=== PATIENT | female | born 1960 | race Caucasian/White ===

== ENCOUNTER 2016-07-19 01:23 | Observation (INO) | payer BC, MEDICARE ==
[~2016-07-19] VITALS: Ht 167.6 cm; Wt 142.9 kg
[~2016-07-19 01:23] MED LIST: ALPR1TAB6 PO; ASPI81TA2 PO; CETI10TA22 PO; DICL50TA2 PO; DICY20TA3 PO; FLUN25SP NS; FLUO20TA11 PO; FLUO40CA9 PO; FLUT50DI IH; HYDR-2762 PO; HYDR-971 PO; KETO30SY2 IJ; KETO60VI IM; LEVO125T5 PO; LISI-338 PO; LORTAB; LOSA50TA6 PO; METH-37 PO; NIAC500T PO; OMEG500C PO; ONDA4TAB7 PO; RIZA10TA PO; TRAM50TA PO; VERA240T PO; WARF5TAB7 PO; ZOLP10TA4 PO
--- NOTE | 2016-07-19 01:52 | ACF ---
Admission Forms Criteria CHEST PAIN Clinical Indications for Admission to Inpatient Care (Place 'X' for any and all applicable criteria): Admission is indicated for chest pain and ANY ONE of the following(1)(2)(3)(4)(5 ): [ ]I. Angina with acute coronary syndrome (Also use Myocardial Infarction or Angina guideline) [ ]II. Hemodynamic instability [ ]III. Angina needing acute intervention as indicated by ALL of the following( 11)(12): [ ]a) Unstable angina is present as indicated by angina that is ANY ONE of the following: [ ]i) New onset [X]ii) Nocturnal [ ]iii) Prolonged at rest [ ]iv) Progressive [X]b) Angina warrants acute intervention as indicated by ANY ONE of the following: [ ]i) Recurrent angina (e.g, not responding as previously to treatment) [ ]ii) Angina at rest or with low-level activities despite initial medical therapy [ ]iii) New or presumably new ST-segment depression on ECG [ ]iv) Signs or symptoms of heart failure (eg, dyspnea, pulmonary edema) [ ]v) New or worsening mitral regurgitation [ ]vi) Hemodynamic instability [ ]vii) Dangerous arrhythmia (eg, sustained ventricular tachycardia) [ ]viii) History of percutaneous coronary intervention within 6 months [ ]ix) History of coronary artery bypass graft surgery [ ]x) ABHISHEK risk score of 2 or greater[A] [ ]xi) History of Diabetes(14) [ ]xii) High-risk cardiac ischemia findings on noninvasive testing (e.g, echocardiogram, treadmill testing, nuclear scan) [ ]xiii) Chronic renal insufficiency (ie, estimated GFR less than 60 mL/min/1.732m) [ ]xiv) Left ventricular ejection fraction less than 40% [ ]IV. Evidence of DC (eg, cardiac biomarkers positive, ST-segment elevation on ECG) also use Myocardial Infarction Criteria Form. [ ]V. Pulmonary edema [ ]. Respiratory distress [ ]VII. Chest pain indicative of serious diagnosis other than coronary artery disease (eg, aortic dissection) [ ]VIII. Contraindications and/or Inappropriate clinical situations for Observational Care in patients with Chest Pain, when ANY ONE of the following is required: [ ]a) Patient with risk factor for pulmonary embolism, acute coronary syndrome and myocardial infarction (18) [ ]b) Patient with Pulmonary embolism require an average LOS of 4.3 days, therefore emergency department observation management is inappropriate 18,23 [ ]c) Painful condition/s in the elderly, have the highest rate of recidivism after emergency department observation management (10.8%) 20,21,22 [ ]d) Elevated cardiac biomarker requires intensive and exhaustive care (19) [ ]IX. General contraindications and/or Inappropriate clinical situations for Observational Care in patients with Chest Pain, when ANY ONE of the following is required: [ ]a) Prediction of prolongation of LOS based on ANY ONE of the following may be considered as a contraindication for observational care 2, 3, 4, 5, 6, 7, 8, 9, 10, 11 [ ]i) Age > 65 yrs. [ ]ii) Patient arriving by ambulance [ ]iii) Patient with high acuity [ ]iv) Patient requiring vital sign monitoring [ ]v) Patient on IV medication [ ]b) Systolic blood pressures 180mmHg 3,12 [ ]c) Patient with altered mental status including delirium and other alteration of consciousness, (3) [ ]d) Patient whose discharge disposition will be to a longterm home or rehabilitation home should not be managed in Emergency Department Observation Unit. CMS rule requires 3 days hospital stay before such placement. 3,13 [ ]e) Patient with failure to thrive due to broad array of etiologies 3,16,17 [ ]f) Inability to ambulate 3,14 Extended stay beyond goal length of stay may be needed for (1)(28): [ ]a) Specific condition diagnosed after evaluation (eg, pulmonary embolism, aortic dissection) [ ]b) Unstable angina [ ]c) Continued suspicion of acute coronary syndrome with inability to complete needed cardiac evaluation (eg, patient clinically unable to undergo stress testing) [ ]d) Myocardial infarction (Contents from ANGINA and CHEST PAIN clinical indications for admission to inpatient care have been integrated in this form) The original [facility] content created by [employer] has been revised. The portions of the content which have been revised are identified through the use of italic text or in bold, and [facility] has neither reviewed nor approved the modified material. All other unmodified content is copyright [employer]. Please see references footnoted in the original [facility] edition 2016 Admission Criteria Met?: Pending MIKEY BUCK Jul 19, 2016 01:52
[2016-07-19 02:05] LABS: BASO # 0.1 x10^3/uL (0.0-0.2); BASO % 1 % (0-3); EOS % 2 % (0-3); HEMATOCRIT 40.4 % (36.0-47.0); HEMOGLOBIN 13.1 g/dL (12.0-15.5); LYMPH # 1.4 x10^3/uL (1.0-4.8); LYMPH % 15 % (24-48); MEAN CORPUSCULAR HEMOGLOBIN 28 pg (25-35); MEAN CORPUSCULAR HGB CONC 32 g/dL (31-37); MEAN CORPUSCULAR VOLUME 86 fL (79-100); MONO % 4 % (0-9); NEUT % 79 % (31-73); PLATELET COUNT 205 x10^3/uL (140-400); RED CELL DISTRIBUTION WIDTH 13.4 % (11.5-14.5)
[2016-07-19] MEDS ORDERED: MORPHINE SULFATE 4 MG/ML DISP.SYRIN. ONE (02:14)
[2016-07-19] MEDS ORDERED: ASPIRIN 81 MG TAB.CHEW PO ONE (02:15)
[2016-07-19] MEDS: NITROGLYCERIN SUBLINGUAL 0.4 MG BOTTLE OF 25. SL PRN ×2 (02:19→02:38)
[2016-07-19] MEDS: MORPHINE SULFATE 2 MG/ML DISP.SYRIN. IV PRN ×3 (02:20→06:08)
[2016-07-19 02:21] LABS: CALCIUM 9.4 mg/dL (8.5-10.1); GFR 57.1
[2016-07-19 02:27] LABS: ALBUMIN 3.4 g/dL (3.4-5.0); DIRECT BILIRUBIN 0.2 mg/dL (0.0-0.2); TOTAL BILIRUBIN 0.5 mg/dL (0.2-1.0); TOTAL PROTEIN 6.8 g/dL (6.4-8.2)
--- NOTE | 2016-07-19 05:00 | PHYS DOC ---
Past Medical History Past Medical History: Diverticulitis, Diverticulosis, High Cholesterol, Hypertension, Hypothyroid, Migraines Additional Past Medical Histor: FATTY LIVER DISEASE, CVA, ULCERS Past Surgical History: Appendectomy, Cholecystectomy, , Hysterectomy, Knee Replacement Alcohol Use: None Drug Use: None Adult General Chief Complaint Chief Complaint: CHEST PAIN HPI HPI 55-year-old female presenting to the emergency department today with chest pain. She describes it as sharp in the middle of her chest without radiation. Worse at night. No alleviating or exacerbating factors present. Straight hypertension and hyperlipidemia. She denies personal history or family history of blood clotting disorders. She denies unilateral leg swelling. Review of Systems Review of Systems Negative for abdominal pain fevers chills. Negative for cough. All other review of systems is negative unless otherwise noted in history of present illness. Current Medications Current Medications Current Medications Medications (Trade) Dose Ordered Sig/Aretha Start Time Stop Time Status Last Admin Dose Admin Aspirin (Children'S Aspirin) 324 mg 1X ONCE 07/19/16 02:15 07/19/16 02:24 DC 07/19/16 02:18 324 MG Morphine Sulfate 4 mg STK-MED ONCE 07/19/16 02:14 07/19/16 02:15 DC Nitroglycerin (Nitrostat) 0.4 mg PRN Q5MIN PRN 07/19/16 02:15 07/19/16 02:38 0.4 MG Allergies Allergies Allergies Coded Allergies Type Severity Reaction Last Updated Verified Fenofibrate Nanocrystallized Allergy Intermediate migraines 09/30/14 Yes celecoxib Allergy Intermediate 09/30/14 Yes colesevelam Allergy Intermediate 09/30/14 Yes dimenhydrinate Allergy Intermediate 09/30/14 Yes duloxetine Allergy Intermediate 09/30/14 Yes fenofibrate Allergy Intermediate 09/30/14 Yes fenofibrate,micronized Allergy Intermediate migraines 09/30/14 Yes metoclopramide Allergy Intermediate itching 09/30/14 Yes pantoprazole sodium Allergy Intermediate rash 09/30/14 Yes pregabalin Allergy Intermediate rash 09/30/14 Yes vilazodone hydrochloride Allergy Intermediate 09/30/14 Yes NSAIDS (Non-Steroidal Anti-Inflamma Adverse Reaction Intermediate ULCERS Yes Seeasiq-Kza-Lyd Reductase Inhibitor Adverse Reaction Intermediate INCREASED LIVER ENZYMES 09/30/14 Yes Physical Exam Physical Exam Constitutional: Well developed, well nourished, no acute distress, non-toxic appearance. HENT: Normocephalic, atraumatic, bilateral external ears normal, oropharynx moist, no oral exudates, nose normal. [] Eyes: PERRLA, EOMI, conjunctiva normal, no discharge. Neck: Normal range of motion, no tenderness, supple, no stridor. [] Cardiovascular:Heart rate regular rhythm, no murmur Lungs & Thorax: Bilateral breath sounds clear to auscultation [] Abdomen: Bowel sounds normal, soft, no tenderness, no masses, no pulsatile masses. Skin: Warm, dry, no erythema, no rash. Back: No tenderness, no CVA tenderness. [] Extremities: No tenderness, no cyanosis, no clubbing, ROM intact, no edema. [] Neurologic: Alert and oriented X 3, normal motor function, normal sensory function, no focal deficits noted. Psychologic: Affect normal, judgement normal, mood normal. [] Current Patient Data Vital Signs Vital Signs Date Time Temp Pulse Resp B/P Pulse Ox O2 Delivery O2 Flow Rate FiO2 07/19/16 02:38 95 172/79 07/19/16 02:33 95 Room Air 07/19/16 02:20 22 07/19/16 01:38 97.8 97.8 Lab Values Laboratory Tests Test 07/19/16 01:55 White Blood Count 10.0x10^3/uL (4.0-11.0) Red Blood Count 4.70x10^6/uL (3.50-5.40) Hemoglobin 13.1g/dL (12.0-15.5) Hematocrit 40.4% (36.0-47.0) Mean Corpuscular Volume 86fL (79-100) Mean Corpuscular Hemoglobin 28pg (25-35) Mean Corpuscular Hemoglobin Concent 32g/dL (31-37) Red Cell Distribution Width 13.4% (11.5-14.5) Platelet Count 205x10^3/uL (140-400) Neutrophils (%) (Auto) 79% (31-73) H Lymphocytes (%) (Auto) 15% (24-48) L Monocytes (%) (Auto) 4% (0-9) Eosinophils (%) (Auto) 2% (0-3) Basophils (%) (Auto) 1% (0-3) Neutrophils # (Auto) 7.9x10^3uL (1.8-7.7) H Lymphocytes # (Auto) 1.4x10^3/uL (1.0-4.8) Monocytes # (Auto) 0.4x10^3/uL (0.0-1.1) Eosinophils # (Auto) 0.2x10^3/uL (0.0-0.7) Basophils # (Auto) 0.1x10^3/uL (0.0-0.2) Sodium Level 138mmol/L (136-145) Potassium Level 4.0mmol/L (3.5-5.1) Chloride Level 102mmol/L (98-107) Carbon Dioxide Level 27mmol/L (21-32) Anion Gap 9 (6-14) Blood Urea Nitrogen 9mg/dL (7-20) Creatinine 1.0mg/dL (0.6-1.0) Estimated GFR (Cockcroft-Gault) 57.1 Glucose Level 117mg/dL (70-99) H Calcium Level 9.4mg/dL (8.5-10.1) Total Bilirubin 0.5mg/dL (0.2-1.0) Direct Bilirubin 0.2mg/dL (0.0-0.2) Aspartate Amino Transferase (AST) 30U/L (15-37) Alanine Aminotransferase (ALT) 49U/L (14-59) Alkaline Phosphatase 136U/L (46-116) H Troponin I Quantitative < 0.017ng/mL (0.000-0.055) DK-Jcc-Q-Type Natriuretic Peptide 10pg/mL (0-124) Total Protein 6.8g/dL (6.4-8.2) Albumin 3.4g/dL (3.4-5.0) Lipase 61U/L (73-393) L Laboratory Tests 07/19/16 01:55 Laboratory Tests 07/19/16 01:55 EKG EKG [] EKG shows sinus rhythm with a regular rate. [place] normal. Intervals normal. ST segments congruent Radiology/Procedures Radiology/Procedures Chest x-ray shows mild cardiomegaly. No infiltrate or pneumothorax present. [] Course & Med Decision Making Course & Med Decision Making Pertinent Labs and Imaging studies reviewed. (See chart for details) [] She 5-year-old female presenting to the emergency department today with chest pain. Mild hypertension on initial vital signs. Patient was given aspirin and nitroglycerin which improved her pain mildly. EKG unremarkable. Labs showed normal CBC. Chemistry panel unremarkable negative troponin. On reevaluation her pain had improved mildly. She was then admitted to our hospital for serial blood work monitoring and cardiology consultation. Dragon Disclaimer Dragon Disclaimer This electronic medical record was generated, in whole or in part, using a voice recognition dictation system. Departure Departure Impression: Primary Impression: Chest pain Disposition: ADMITTED INPATIENT Condition: STABLE Referrals: RUTH PEREZ (PCP) ARMANDO DAVIS MD Jul 19, 2016 05:00
[2016-07-19] MEDS ORDERED: MELA5TAB4 PO (05:03)
[2016-07-19] MEDS ORDERED: [UNRECOGNIZED DRUG - CODE] SQ (05:03)
[2016-07-19] MEDS ORDERED: KETO30SY2 IV (05:03)
[2016-07-19] MEDS ORDERED: KRIL1CAP5 PO (05:03)
[2016-07-19] MEDS ORDERED: CYCL10TA2 PO (05:03)
[2016-07-19] MEDS ORDERED: TRAM50TA PO (05:03)
[2016-07-19] MEDS ORDERED: TRAZ50TA15 PO (05:03)
[2016-07-19 07:15] VITALS: BP 129/69
--- NOTE | 2016-07-19 08:41 | RAD ---
Portable AP upright view CXR: 0 146 Clinical indications: Chest pain. Comparison: March 25, 2015. Findings: No acute lung infiltrate or pleural effusion or pulmonary edema or lung mass or pneumothorax is seen. The heart size, pulmonary vasculature, mediastinum and both mark are unremarkable. Impression: No acute radiographic abnormality is seen.
[2016-07-19] MEDS ORDERED: ALPRAZOLAM 1 MG TABLET PO PRN (10:15)
[2016-07-19] MEDS ORDERED: traZODone 50 MG TABLET. PO PRN (10:15)
[2016-07-19] MEDS: VERAPAMIL SR 120 MG TABLET.ER. PO SCH (11:00)
[2016-07-19] MEDS ORDERED: ENOXAPARIN 40 MG/0.4 ML DISP.SYRIN. SQ SCH (11:00)
[2016-07-19] MEDS ORDERED: FLUTICASONE 50MCG/NASAL SPRAY 16GM BOTTLE. NS SCH (11:00)
[2016-07-19 11:19] LABS: CKMB MASS 0.3 ng/mL (0.0-3.6); CREATINE KINASE 40 U/L (26-192)
[2016-07-19 11:24] VITALS: BP 140/72
--- NOTE | 2016-07-19 11:26 | EKG ---
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
--- NOTE | 2016-07-19 11:41 | EKG ---
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
[2016-07-19] MEDS: FLUOXETINE HCL 20 MG CAPSULE PO SCH (12:07)
[2016-07-19] MEDS: CETIRIZINE HCL 10 MG TABLET PO SCH (12:07)
[2016-07-19] MEDS: ASPIRIN 81 MG TAB.CHEW PO SCH (12:07)
[2016-07-19] MEDS: TRAMADOL 50 MG TABLET. PO SCH (12:09)
[2016-07-19] MEDS: HYDROCODONE/APAP 5/325MG TABLET. PO PRN ×2 (12:09→18:14)
--- NOTE | 2016-07-19 12:42 | PDOC1 ---
History and Physical Date of Admission Date of Admission 07/19/16 Identification/Chief Complaint Chief Complaint chest pain Problems: Source Source: Chart review, Patient History of Present Illness History of Present Illness HPI HPI 55-year-old female presenting to the emergency department today with chest pain for 1 d. Pt started to feel substernal pain last night when walking at home, sharp, no radiation, no N/V , diaphoresis. She dose have exertional sob for a few days. She has mild cough, dry, for 2 weeks. No H/O CAD or COPD, but previous smoker. + chest wall tenderness Past Medical History Cardiovascular: HTN, Hyperlipidemia, Other Pulmonary: Other CENTRAL NERVOUS SYSTEM: Migraine GI: Diverticulosis, GERD, Other Heme/Onc: Anemia NOS Psych: Anxiety, Depression Endocrine: Hypothyroidism Past Surgical History Past Surgical History: Appendectomy, Cholecystectomy, Tonsillectomy, Hysterectomy, Other Family History Family History: Coronary Artery Disease, Diabetes, Heart Disease Social History Smoke: Quit ALCOHOL: none Drugs: None Current Problem List Problem List Problems Medical Problems: (1) Atypical chest pain Status: Acute (2) Chest pain Status: Acute Current Medications Current Medications Current Medications Medications (Trade) Dose Ordered Sig/Aretha Start Time Stop Time Status Last Admin Dose Admin Acetaminophen/ Hydrocodone Bitart (Lortab 5/325) 1 tab PRN Q6HRS PRN 07/19/16 10:15 07/19/16 12:09 1 TAB Alprazolam (Xanax) 1 mg PRN DAILY PRN 07/19/16 10:15 Aspirin (Children'S Aspirin) 81 mg DAILY 07/19/16 11:00 07/19/16 12:07 81 MG Cetirizine HCl (Zyrtec) 10 mg DAILY 07/19/16 11:00 07/19/16 12:07 10 MG Cyclobenzaprine HCl (Flexeril) 10 mg TID 07/19/16 14:00 Enoxaparin Sodium (Lovenox 40mg Syringe) 40 mg Q24H 07/19/16 11:00 07/19/16 12:07 40 MG Fluoxetine HCl (Prozac) 40 mg DAILY 07/19/16 11:00 07/19/16 12:07 40 MG Fluticasone Propionate (Flonase) 2 spray DAILY 07/19/16 11:00 07/19/16 12:08 2 SPRAY Levothyroxine Sodium (Synthroid) 125 mcg DAILY07 07/20/16 09:00 Losartan Potassium (Cozaar) 50 mg HS 07/19/16 21:00 Methocarbamol (Robaxin) 500 mg HS 07/19/16 21:00 Morphine Sulfate 4 mg STK-MED ONCE 07/19/16 02:14 07/19/16 02:15 DC Niacin (Slo-Niacin) 500 mg HS 07/19/16 21:00 Nitroglycerin (Nitrostat) 0.4 mg PRN Q5MIN PRN 07/19/16 02:15 07/19/16 02:38 0.4 MG Non-Formulary Medication 5 mg DAILY 07/20/16 09:00 07/20/16 09:00 DC Tramadol HCl (Ultram) 50 mg DAILY 07/19/16 11:00 07/19/16 12:09 50 MG Trazodone HCl (Desyrel) 50 mg PRN DAILY PRN 07/19/16 10:15 Verapamil HCl (Calan Sr) 240 mg DAILY 07/19/16 11:00 Allergies Allergies Allergies Coded Allergies Type Severity Reaction Last Updated Verified Fenofibrate Nanocrystallized Allergy Intermediate migraines 09/30/14 Yes celecoxib Allergy Intermediate 09/30/14 Yes colesevelam Allergy Intermediate 09/30/14 Yes dimenhydrinate Allergy Intermediate 09/30/14 Yes duloxetine Allergy Intermediate 09/30/14 Yes fenofibrate Allergy Intermediate 09/30/14 Yes fenofibrate,micronized Allergy Intermediate migraines 09/30/14 Yes metoclopramide Allergy Intermediate itching 09/30/14 Yes pantoprazole sodium Allergy Intermediate rash 09/30/14 Yes pregabalin Allergy Intermediate rash 09/30/14 Yes vilazodone hydrochloride Allergy Intermediate 09/30/14 Yes NSAIDS (Non-Steroidal Anti-Inflamma Adverse Reaction Intermediate ULCERS Yes Tntotkz-Bvb-Vfo Reductase Inhibitor Adverse Reaction Intermediate INCREASED LIVER ENZYMES 09/30/14 Yes ROS Review of System CONSTITUTIONAL: No fever or chills EYES: No recent changes SKIN: No rash or itching CARDIOVASCULAR: No chest pain, syncope, palpitations, or edema RESPIRATORY: No SOB or cough GASTROINTESTINAL: No nausea, vomiting or abdominal pain NEUROLOGICAL: No headaches or weakness ENDOCRINE: No cold or heat intolerance GENITOURINARY: No urgency or frequency of urination MUSCULOSKELETAL: No back pain or joint pain LYMPHATICS: No enlarged lymph nodes PSYCHIATRIC: No anxiety or depression Physical Exam Physical Exam GEN.: No apparent distress. Alert and oriented. HEENT: Head is normocephalic, atraumatic NECK: Supple. LUNGS: Clear to auscultation. middle chest and left chest wall tenderness. HEART: RRR, S1, S2 present. Peripheral pulses intact ABDOMEN: Soft, nontender. Positive bowel sounds. EXTREMITIES: Without any cyanosis. NEUROLOGIC: Normal speech, normal tone PSYCHIATRIC: Normal affect, normal mood. SKIN: No ulcerations Vitals Vitals Vital Signs Date Time Temp Pulse Resp B/P Pulse Ox O2 Delivery O2 Flow Rate FiO2 07/19/16 12:09 Room Air 07/19/16 11:24 97.5 77 18 140/72 92 97.5 Labs Labs Laboratory Tests Test 07/19/16 01:55 07/19/16 10:35 White Blood Count 10.0x10^3/uL (4.0-11.0) Red Blood Count 4.70x10^6/uL (3.50-5.40) Hemoglobin 13.1g/dL (12.0-15.5) Hematocrit 40.4% (36.0-47.0) Mean Corpuscular Volume 86fL (79-100) Mean Corpuscular Hemoglobin 28pg (25-35) Mean Corpuscular Hemoglobin Concent 32g/dL (31-37) Red Cell Distribution Width 13.4% (11.5-14.5) Platelet Count 205x10^3/uL (140-400) Neutrophils (%) (Auto) 79% (31-73) Lymphocytes (%) (Auto) 15% (24-48) Monocytes (%) (Auto) 4% (0-9) Eosinophils (%) (Auto) 2% (0-3) Basophils (%) (Auto) 1% (0-3) Neutrophils # (Auto) 7.9x10^3uL (1.8-7.7) Lymphocytes # (Auto) 1.4x10^3/uL (1.0-4.8) Monocytes # (Auto) 0.4x10^3/uL (0.0-1.1) Eosinophils # (Auto) 0.2x10^3/uL (0.0-0.7) Basophils # (Auto) 0.1x10^3/uL (0.0-0.2) Sodium Level 138mmol/L (136-145) Potassium Level 4.0mmol/L (3.5-5.1) Chloride Level 102mmol/L (98-107) Carbon Dioxide Level 27mmol/L (21-32) Anion Gap 9 (6-14) Blood Urea Nitrogen 9mg/dL (7-20) Creatinine 1.0mg/dL (0.6-1.0) Estimated GFR (Cockcroft-Gault) 57.1 Glucose Level 117mg/dL (70-99) Calcium Level 9.4mg/dL (8.5-10.1) Total Bilirubin 0.5mg/dL (0.2-1.0) Direct Bilirubin 0.2mg/dL (0.0-0.2) Aspartate Amino Transf (AST/SGOT) 30U/L (15-37) Alanine Aminotransferase (ALT/SGPT) 49U/L (14-59) Alkaline Phosphatase 136U/L (46-116) Troponin I Quantitative < 0.017ng/mL (0.000-0.055) < 0.017ng/mL (0.000-0.055) GQ-Tjf-B-Type Natriuretic Peptide 10pg/mL (0-124) Total Protein 6.8g/dL (6.4-8.2) Albumin 3.4g/dL (3.4-5.0) Lipase 61U/L (73-393) Creatine Kinase 40U/L (26-192) Creatine Kinase MB (Mass) 0.3ng/mL (0.0-3.6) Creatine Kinase MB Relative Index % (0-4) Thyroid Stimulating Hormone (TSH) 1.706uIU/mL (0.358-3.74) Laboratory Tests Test 07/19/16 01:55 07/19/16 10:35 White Blood Count 10.0x10^3/uL (4.0-11.0) Red Blood Count 4.70x10^6/uL (3.50-5.40) Hemoglobin 13.1g/dL (12.0-15.5) Hematocrit 40.4% (36.0-47.0) Mean Corpuscular Volume 86fL (79-100) Mean Corpuscular Hemoglobin 28pg (25-35) Mean Corpuscular Hemoglobin Concent 32g/dL (31-37) Red Cell Distribution Width 13.4% (11.5-14.5) Platelet Count 205x10^3/uL (140-400) Neutrophils (%) (Auto) 79% (31-73) Lymphocytes (%) (Auto) 15% (24-48) Monocytes (%) (Auto) 4% (0-9) Eosinophils (%) (Auto) 2% (0-3) Basophils (%) (Auto) 1% (0-3) Neutrophils # (Auto) 7.9x10^3uL (1.8-7.7) Lymphocytes # (Auto) 1.4x10^3/uL (1.0-4.8) Monocytes # (Auto) 0.4x10^3/uL (0.0-1.1) Eosinophils # (Auto) 0.2x10^3/uL (0.0-0.7) Basophils # (Auto) 0.1x10^3/uL (0.0-0.2) Sodium Level 138mmol/L (136-145) Potassium Level 4.0mmol/L (3.5-5.1) Chloride Level 102mmol/L (98-107) Carbon Dioxide Level 27mmol/L (21-32) Anion Gap 9 (6-14) Blood Urea Nitrogen 9mg/dL (7-20) Creatinine 1.0mg/dL (0.6-1.0) Estimated GFR (Cockcroft-Gault) 57.1 Glucose Level 117mg/dL (70-99) Calcium Level 9.4mg/dL (8.5-10.1) Total Bilirubin 0.5mg/dL (0.2-1.0) Direct Bilirubin 0.2mg/dL (0.0-0.2) Aspartate Amino Transf (AST/SGOT) 30U/L (15-37) Alanine Aminotransferase (ALT/SGPT) 49U/L (14-59) Alkaline Phosphatase 136U/L (46-116) Troponin I Quantitative < 0.017ng/mL (0.000-0.055) < 0.017ng/mL (0.000-0.055) RU-Jkq-M-Type Natriuretic Peptide 10pg/mL (0-124) Total Protein 6.8g/dL (6.4-8.2) Albumin 3.4g/dL (3.4-5.0) Lipase 61U/L (73-393) Creatine Kinase 40U/L (26-192) Creatine Kinase MB (Mass) 0.3ng/mL (0.0-3.6) Creatine Kinase MB Relative Index % (0-4) Thyroid Stimulating Hormone (TSH) 1.706uIU/mL (0.358-3.74) VTE Prophylaxis Ordered VTE Prophylaxis Devices: Yes VTE Pharmacological Prophylaxi: Yes Assessment/Plan Assessment/Plan 1. chest pain, muscular pain likely 2. dyspnea, possible baseline mild COPD, with obesity, need to rule out chf 3. Htn 4. HLD 5. hypothyroidism 6. migraines 7. diverticulosis/diverticulitis 8. morbid obeisty 9. fatty liver 10. bronchitis, viral likely plan: 1. card consult 2. echo 3. cycle CE, check tsh, lipid panel 4. EKG ok cough meds dvt ppx cont home meds ISSAC BATRES MD Jul 19, 2016 12:42
[2016-07-19] MEDS ORDERED: GUAIFENESIN/CODEINE 100mg/10mg 5 ML LIQUID. PO PRN (12:45)
[2016-07-19] MEDS ORDERED: ACETAMINOPHEN 325 MG TABLET. PO PRN (12:45)
[2016-07-19] MEDS ORDERED: ONDANSETRON PF 4 MG/2 ML VIAL. IV PRN (12:45)
[2016-07-19] MEDS: CYCLOBENZAPRINE 10 MG TABLET. PO SCH ×2 (13:44→20:14)
[2016-07-19 15:00] VITALS: BP 136/63
--- NOTE | 2016-07-19 15:59 | PDOC2 ---
CARDIAC CONSULT DATE OF CONSULT Date of Consult DATE: 07/19/16 TIME: 15:52 REASON FOR CONSULT Reason for Consult: chest pain REFERRING PHYSICIAN Referring Physician: Dr. Joanne Price SOURCE Source: Chart review, Patient HISTORY OF PRESENT ILLNESS HISTORY OF PRESENT ILLNESS 55 year old female with substernal chest pain without radiation while seated at 1900 yesterday. [place] out of breath with ambulation. Associated with diaphoresis and dizziness but pain did not radiate. Treated with PPI thinking this was GERD. No change in symptoms. No previous similar symptoms. No acute changes in EKG and troponin level was not consistent with AMI. Has had cough for the last 2 weeks. Pain now occasional. Reason for Visit: chest pain PAST MEDICAL HISTORY Cardiovascular: HTN, Hyperlipidemia CENTRAL NERVOUS SYSTEM: Migraine, TIA GI: Diverticulosis, Peptic Ulcer disease, Other (morbid obesity) Hepatobiliary: Other (fatty liver disease) Endocrine: Hypothyroidism PAST SURGICAL HISTORY Past Surgical History: Appendectomy, Cholecystectomy, , Total knee replacement, Hysterectomy FAMILY HISTORY Family History: Diabetes, Heart Disease SOCIAL HISTORY Smoke: Quit ALCOHOL: none CURRENT MEDICATIONS CURRENT MEDICATIONS Current Medications Medications (Trade) Dose Ordered Sig/Aretha Route PRN Reason Start Time Stop Time Status Last Admin Dose Admin Aspirin (Children'S Aspirin) 324 mg 1X ONCE PO 07/19/16 02:15 07/19/16 02:24 DC 07/19/16 02:18 Nitroglycerin (Nitrostat) 0.4 mg PRN Q5MIN PRN SL CHEST PAIN 07/19/16 02:15 07/19/16 02:38 Morphine Sulfate 2 mg PRN Q1HR PRN IV SEVERE PAIN 07/19/16 02:15 07/19/16 06:08 DC 07/19/16 06:08 Aspirin (Children'S Aspirin) 81 mg DAILY PO 07/19/16 11:00 07/19/16 12:07 Cetirizine HCl (Zyrtec) 10 mg DAILY PO 07/19/16 11:00 07/19/16 12:07 Cyclobenzaprine HCl (Flexeril) 10 mg TID PO 07/19/16 14:00 07/19/16 13:44 Acetaminophen/ Hydrocodone Bitart (Lortab 5/325) 1 tab PRN Q6HRS PRN PO PAIN 07/19/16 10:15 07/19/16 12:09 Tramadol HCl (Ultram) 50 mg DAILY PO 07/19/16 11:00 07/19/16 12:09 Fluticasone Propionate (Flonase) 2 spray DAILY NS 07/19/16 11:00 07/19/16 13:56 DC 07/19/16 12:08 Fluoxetine HCl (Prozac) 40 mg DAILY PO 07/19/16 11:00 07/19/16 12:07 Enoxaparin Sodium (Lovenox 40mg Syringe) 40 mg Q24H SQ 07/19/16 11:00 07/19/16 12:07 ALLERGIES ALLERGIES: Coded Allergies: Fenofibrate Nanocrystallized (Verified Allergy, Intermediate, migraines, ) celecoxib (Verified Allergy, Intermediate, 09/30/14) colesevelam (Verified Allergy, Intermediate, 09/30/14) dimenhydrinate (Verified Allergy, Intermediate, 09/30/14) duloxetine (Verified Allergy, Intermediate, 09/30/14) fenofibrate (Verified Allergy, Intermediate, 09/30/14) fenofibrate,micronized (Verified Allergy, Intermediate, migraines, 09/30/14 ) metoclopramide (Verified Allergy, Intermediate, itching, 09/30/14) pantoprazole sodium (Verified Allergy, Intermediate, rash, 09/30/14) pregabalin (Verified Allergy, Intermediate, rash, 09/30/14) vilazodone hydrochloride (Verified Allergy, Intermediate, 09/30/14) NSAIDS (Non-Steroidal Anti-Inflamma (Verified Adverse Reaction, Intermediate, ULCERS, 09/30/14) Vcmvlzs-Eai-Jxz Reductase Inhibitor (Verified Adverse Reaction, Intermediate, INCREASED LIVER ENZYMES, 09/30/14) ROS Review of System 14 point review completed with pertinent positives in HPI PHYSICAL EXAM General: Alert, Oriented X3, Cooperative, No acute distress HEENT: Atraumatic, PERRLA Lungs: Clear to auscultation Heart: Regular rate, Normal S1, Normal S2, No murmurs, Other (pain reproducible on palpation) Abdomen: Normal bowel sounds, Soft, Other (obese abdomen) Extremities: No edema, Normal pulses Skin: No rashes Neuro: Normal speech Psych/Mental Status: Mental status NL, Mood NL MUSCULOSKELETAL: No joint tenderness VITALS VITALS Vital Signs Date Time Temp Pulse Resp B/P Pulse Ox O2 Delivery O2 Flow Rate FiO2 07/19/16 13:25 Room Air 07/19/16 11:24 97.5 77 18 140/72 92 97.5 LABS Lab: Laboratory Tests Test 07/19/16 01:55 07/19/16 10:35 White Blood Count 10.0x10^3/uL (4.0-11.0) Red Blood Count 4.70x10^6/uL (3.50-5.40) Hemoglobin 13.1g/dL (12.0-15.5) Hematocrit 40.4% (36.0-47.0) Mean Corpuscular Volume 86fL (79-100) Mean Corpuscular Hemoglobin 28pg (25-35) Mean Corpuscular Hemoglobin Concent 32g/dL (31-37) Red Cell Distribution Width 13.4% (11.5-14.5) Platelet Count 205x10^3/uL (140-400) Neutrophils (%) (Auto) 79% (31-73) Lymphocytes (%) (Auto) 15% (24-48) Monocytes (%) (Auto) 4% (0-9) Eosinophils (%) (Auto) 2% (0-3) Basophils (%) (Auto) 1% (0-3) Neutrophils # (Auto) 7.9x10^3uL (1.8-7.7) Lymphocytes # (Auto) 1.4x10^3/uL (1.0-4.8) Monocytes # (Auto) 0.4x10^3/uL (0.0-1.1) Eosinophils # (Auto) 0.2x10^3/uL (0.0-0.7) Basophils # (Auto) 0.1x10^3/uL (0.0-0.2) Sodium Level 138mmol/L (136-145) Potassium Level 4.0mmol/L (3.5-5.1) Chloride Level 102mmol/L (98-107) Carbon Dioxide Level 27mmol/L (21-32) Anion Gap 9 (6-14) Blood Urea Nitrogen 9mg/dL (7-20) Creatinine 1.0mg/dL (0.6-1.0) Estimated GFR (Cockcroft-Gault) 57.1 Glucose Level 117mg/dL (70-99) Calcium Level 9.4mg/dL (8.5-10.1) Total Bilirubin 0.5mg/dL (0.2-1.0) Direct Bilirubin 0.2mg/dL (0.0-0.2) Aspartate Amino Transf (AST/SGOT) 30U/L (15-37) Alanine Aminotransferase (ALT/SGPT) 49U/L (14-59) Alkaline Phosphatase 136U/L (46-116) Troponin I Quantitative < 0.017ng/mL (0.000-0.055) < 0.017ng/mL (0.000-0.055) TJ-Nki-G-Type Natriuretic Peptide 10pg/mL (0-124) Total Protein 6.8g/dL (6.4-8.2) Albumin 3.4g/dL (3.4-5.0) Lipase 61U/L (73-393) Creatine Kinase 40U/L (26-192) Creatine Kinase MB (Mass) 0.3ng/mL (0.0-3.6) Creatine Kinase MB Relative Index % (0-4) Thyroid Stimulating Hormone (TSH) 1.706uIU/mL (0.358-3.74) IMAGES IMAGES CXR without acute process EKG EKG no acute changes ASSESSMENT/PLAN ASSESSMENT/PLAN 1. chest pain, atypical reproducible with palpation - likely musculoskeletal in etiology continue cardiac markers check echo for WMA given her multiple risk factors 2. HTN continue home meds 3. HLD statin intolerant due to elevated LFTs 4. morbid obesity Problems: NICK ARAUJO APRN Jul 19, 2016 15:59
[2016-07-19 19:00] VITALS: BP 123/44
[2016-07-19] MEDS: ENOXAPARIN ** NOTE DOSE ** SYRINGE SQ SCH (20:14)
[2016-07-19] MEDS ORDERED: METHOCARBAMOL 500 MG TABLET PO SCH (21:00)
[2016-07-19] MEDS ORDERED: LOSARTAN POTASSIUM 50 MG TABLET. PO SCH (21:00)
[2016-07-19] MEDS ORDERED: NIACIN ER 500 MG TABLET.ER PO SCH (21:00)
[2016-07-19] MEDS ORDERED: ZOLPIDEM 5 MG TABLET. PO SCH (23:00)
[2016-07-19 23:11] VITALS: BP 155/84
[2016-07-20] MEDS: HYDROCODONE/APAP 5/325MG TABLET. PO PRN (01:32)
[2016-07-20 03:17] VITALS: BP 128/90
[2016-07-20 04:54] LABS: BASO % 1 % (0-3); EOS % 4 % (0-3); HEMATOCRIT 37.6 % (36.0-47.0); HEMOGLOBIN 11.9 g/dL (12.0-15.5); LYMPH # 1.6 x10^3/uL (1.0-4.8); LYMPH % 38 % (24-48); MEAN CORPUSCULAR HEMOGLOBIN 28 pg (25-35); MEAN CORPUSCULAR HGB CONC 32 g/dL (31-37); MEAN CORPUSCULAR VOLUME 87 fL (79-100); MONO % 8 % (0-9); NEUT % 50 % (31-73); PLATELET COUNT 173 x10^3/uL (140-400); RED BLOOD COUNT 4.31 x10^6/uL (3.50-5.40); RED CELL DISTRIBUTION WIDTH 13.4 % (11.5-14.5); WHITE BLOOD COUNT 4.4 x10^3/uL (4.0-11.0)
[2016-07-20 05:21] LABS: CALCIUM 9.2 mg/dL (8.5-10.1); CREATININE 0.8 mg/dL (0.6-1.0); GFR 73.9; POTASSIUM 4.2 mmol/L (3.5-5.1)
[2016-07-20 05:23] LABS: CHOLESTEROL/HDL RATIO 2.6
[2016-07-20 07:00] VITALS: BP 120/52
[2016-07-20] MEDS ORDERED: LEVOTHYROXINE 125 MCG TABLET PO SCH (09:00)
[2016-07-20] MEDS: VERAPAMIL SR 120 MG TABLET.ER. PO SCH (09:00)
[2016-07-20] MEDS ORDERED: NON FORMULARY ITEM (Melatonin 5 MG) PO SCH (09:00)
[2016-07-20] MEDS ORDERED: FLUTICASONE 50MCG/NASAL SPRAY 16GM BOTTLE. NS SCH (09:00)
--- NOTE | 2016-07-20 09:39 | PDOC ---
CARDIO Progress Notes Date and Time Date of Service 07/20/2016 Time of Evaluation 0938 Subjective Subjective: No shortness of breath, No Palpitations, No Dizziness, Other ( persistent reproducible chest pain ) Vitals Vitals Vital Signs Date Time Temp Pulse Resp B/P Pulse Ox O2 Delivery O2 Flow Rate FiO2 07/20/16 07:00 96.8 69 18 120/52 92 Room Air 96.8 Weight Weight [ ] Input and Output Intake and Output Intake and Output 07/20/16 07:00 Intake Total 4220 ml Output Total 2 ml Balance 4218 ml Intake Oral 4220 ml Output Urine Total 2 ml Laboratory Labs Laboratory Tests Test 07/19/16 10:35 07/19/16 16:40 07/20/16 03:45 Creatine Kinase 40U/L (26-192) Creatine Kinase MB (Mass) 0.3ng/mL (0.0-3.6) Creatine Kinase MB Relative Index % (0-4) Troponin I Quantitative < 0.017ng/mL (0.000-0.055) < 0.017ng/mL (0.000-0.055) Thyroid Stimulating Hormone (TSH) 1.706uIU/mL (0.358-3.74) White Blood Count 4.4x10^3/uL (4.0-11.0) Red Blood Count 4.31x10^6/uL (3.50-5.40) Hemoglobin 11.9g/dL (12.0-15.5) Hematocrit 37.6% (36.0-47.0) Mean Corpuscular Volume 87fL (79-100) Mean Corpuscular Hemoglobin 28pg (25-35) Mean Corpuscular Hemoglobin Concent 32g/dL (31-37) Red Cell Distribution Width 13.4% (11.5-14.5) Platelet Count 173x10^3/uL (140-400) Neutrophils (%) (Auto) 50% (31-73) Lymphocytes (%) (Auto) 38% (24-48) Monocytes (%) (Auto) 8% (0-9) Eosinophils (%) (Auto) 4% (0-3) Basophils (%) (Auto) 1% (0-3) Neutrophils # (Auto) 2.2x10^3uL (1.8-7.7) Lymphocytes # (Auto) 1.6x10^3/uL (1.0-4.8) Monocytes # (Auto) 0.3x10^3/uL (0.0-1.1) Eosinophils # (Auto) 0.2x10^3/uL (0.0-0.7) Basophils # (Auto) 0.0x10^3/uL (0.0-0.2) Sodium Level 142mmol/L (136-145) Potassium Level 4.2mmol/L (3.5-5.1) Chloride Level 105mmol/L (98-107) Carbon Dioxide Level 28mmol/L (21-32) Anion Gap 9 (6-14) Blood Urea Nitrogen 7mg/dL (7-20) Creatinine 0.8mg/dL (0.6-1.0) Estimated GFR (Cockcroft-Gault) 73.9 Glucose Level 99mg/dL (70-99) Calcium Level 9.2mg/dL (8.5-10.1) Triglycerides Level 84mg/dL (0-150) Cholesterol Level 230mg/dL (0-200) LDL Cholesterol, Calculated 126mg/dL (0-100) VLDL Cholesterol, Calculated 17mg/dL (0-40) HDL Cholesterol 87mg/dL (40-60) Cholesterol/HDL Ratio 2.6 Physical Exam HEENT: Neck Supple W Full Motion Chest: Symmetric LUNGS: Clear to Auscultation Heart: S1S2 (distant due to body habitus), RRR, other (distant; no dysrhythmias on tele) Abdomen: Soft N/T, Other (truncal obesity) Extremities: No Edema Neurology: alert, oriented, follow commands Assessment Assessment 1. chest pain, atypical reproducible with palpation - likely musculoskeletal in etiology troponin levels not consistent with AMI X 3 check echo for WMA given her multiple risk factors 2. HTN continue home meds 3. HLD LDLs = 126 statin intolerant due to elevated LFTs dietary changes/weight loss recommended 4. morbid obesity Agreeable with discharge when echo has been completed NICK ARAUJO APRN Jul 20, 2016 09:39
[2016-07-20] MEDS: CETIRIZINE HCL 10 MG TABLET PO SCH (09:46)
[2016-07-20] MEDS: CYCLOBENZAPRINE 10 MG TABLET. PO SCH ×2 (09:46→15:03)
[2016-07-20] MEDS: ASPIRIN 81 MG TAB.CHEW PO SCH (09:46)
[2016-07-20] MEDS: TRAMADOL 50 MG TABLET. PO SCH (09:47)
[2016-07-20] MEDS: ENOXAPARIN ** NOTE DOSE ** SYRINGE SQ SCH (09:47)
[2016-07-20] MEDS: FLUOXETINE HCL 20 MG CAPSULE PO SCH (09:47)
[2016-07-20 11:00] VITALS: BP 125/66
--- NOTE | 2016-07-20 12:54 | CARD ---
APPROVED REPORT EXAM: Two-dimensional and M-mode echocardiogram with Doppler and color Doppler. Other Information Quality : Fair Technically limited study due to body habitus. INDICATION Chest Pain RISK FACTORS Obesity 2D DIMENSIONS RVDd2.3 (2.9-3.5cm)Left Atrium(2D)3.1 (1.6-4.0cm) IVSd1.1 (0.7-1.1cm)Aortic Root(2D)2.7 (2.0-3.7cm) LVDd4.6 (3.9-5.9cm)LVOT Diameter2.0 (1.8-2.4cm) PWd1.1 (0.7-1.1cm)LVDs2.5 (2.5-4.0cm) FS (%) 30.0 %SV75.2 ml LVEF(%)60.0 (>50%) Aortic Valve AoV Peak Kirt.158.9cm/sAoV VTI27.1cm AO Peak GR.10.1mmHgLVOT Peak Kirt.130.5cm/s LVOT VTI 24.74cmAO Mean GR.5mmHg YASHIRA (VMAX)2.74oo4GFS (VTI)2.93cm2 Mitral Valve MV E Flnrpeqm86.0cm/sMV DECEL [id number] MV A Akotadtf30.2cm/sMV OAW96ov E/A Ratio0.9MVA (PHT)2.41cm2 TDI E/Lateral E'5.3E/Medial E'12.8 Pulmonary Vein S1 Dyivdbni52.7cm/sD2 Gwxniwks67.0cm/s PVa [id number] LEFT VENTRICLE The left ventricle is normal size. There is normal left ventricular wall thickness. The left ventricu lar systolic function is normal and the ejection fraction is within normal range. The Ejection Fracti on is 55-60%. There is normal LV segmental wall motion. Transmitral Doppler flow pattern is Grade I-a bnormal relaxation pattern. RIGHT VENTRICLE The right ventricle is normal size. The right ventricular systolic function is normal. ATRIA The left atrium size is normal. The right atrium size is normal. The interatrial septum is intact wit h no evidence for an atrial septal defect or patent foramen ovale as noted on 2-D or Doppler imaging. AORTIC VALVE The aortic valve is calcified but opens well. Doppler and Color Flow revealed no significant aortic r egurgitation. There is no significant aortic valvular stenosis. MITRAL VALVE The mitral valve is normal in structure and function. There is no evidence of mitral valve prolapse. There is no mitral valve stenosis. Doppler and Color Flow revealed trace mitral valve regurgitation. TRICUSPID VALVE The tricuspid valve is normal in structure and function. Doppler and Color Flow revealed no tricuspid valve regurgitation noted. There is no tricuspid valve stenosis. PULMONIC VALVE The pulmonary valve is normal in structure and function. Doppler and Color Flow revealed no pulmonic valvular regurgitation. There is no pulmonic valvular stenosis. GREAT VESSELS The aortic root is normal in size. The ascending aorta is normal in size. The IVC was not visualized. PERICARDIAL EFFUSION There is no evidence of significant pericardial effusion. Critical Notification Critical Value: No <Conclusion> The left ventricle is normal size. The left ventricular systolic function is normal and the ejection fraction is within normal range. The Ejection Fraction is 55-60%. There is no significant aortic valvular stenosis. Doppler and Color Flow revealed no significant aortic regurgitation. Doppler and Color Flow revealed trace mitral valve regurgitation. Doppler and Color Flow revealed no tricuspid valve regurgitation noted. There is no evidence of significant pericardial effusion.
--- NOTE | 2016-07-20 13:07 | PDOC3 ---
Discharge Summary [facility] Date of Admission: Jul 19, 2016 Discharge Date: Jul 20, 2016 Admitting Diagnosis 1. chest pain, muscular pain likely 2. dyspnea, possible baseline mild COPD, with obesity 3. Htn 4. HLD 5. hypothyroidism 6. migraines 7. diverticulosis/diverticulitis 8. morbid obeisty 9. fatty liver 10. bronchitis, viral likely Problems: Final Diagnosis Problems Medical Problems: (1) Atypical chest pain Status: Acute (2) Chest pain Status: Acute CONSULTS [email or web address] Procedures echo Brief Hospital Course 55-year-old female presenting to the emergency department today with chest pain for 1 d. Pt started to feel substernal pain last night when walking at home, sharp, no radiation, no N/V , diaphoresis. She dose have exertional sob for a few days. She has mild cough, dry, for 2 weeks. No H/O CAD or COPD, but previous smoker. + chest wall tenderness ECho normal. The ches pain is tenderness, pleuritic, ask her to take her own pain meds, try NSADIS over the counter with food. dc home , 35min GEN.: No apparent distress. Alert and oriented. HEENT: Head is normocephalic, atraumatic NECK: Supple. LUNGS: Clear to auscultation. middle chest and left chest wall tenderness. HEART: RRR, S1, S2 present. Peripheral pulses intact ABDOMEN: Soft, nontender. Positive bowel sounds. EXTREMITIES: Without any cyanosis. NEUROLOGIC: Normal speech, normal tone PSYCHIATRIC: Normal affect, normal mood. SKIN: No ulcerations Patient History: Family history: Cardiovascular disease (situation) Family history: Depression (situation) Family history: Gallbladder disease (situation) Family history: Hypertension (situation) Family history: Obesity (situation) Family history: Suicide (situation) Sleep apnea Problems: Disposition home CONDITION AT DISCHARGE: Improved, Stable Diet regular Scheduled Cetirizine Hcl (Zyrtec) 1 TAB PO DAILY (Reported) Cyclobenzaprine Hcl (Cyclobenzaprine Hcl) 1 TAB PO TID (Reported) Flunisolide (Flunisolide) 1 SPRAY NS DAILY (Reported) Fluoxetine Hcl (Fluoxetine Hcl) 40 MG PO DAILY (Reported) Krill/Om3/Dha/Epa/Om6/Lip/Astx (Krill Oil 1,000 Mg Softgel) 1 EACH PO DAILY ( Reported) Levothyroxine Sodium (Levothyroxine Sodium) 125 MCG PO DAILY (Reported) Losartan Potassium (Losartan Potassium) 50 MG PO HS (Reported) Melatonin (Melatonin) 5 MG PO DAILY (Reported) Methocarbamol (Robaxin) 500 MG PO HS (Reported) Niacin (Niaspan) 500 MG PO HS (Reported) Tramadol Hcl (Tramadol Hcl) 50 MG PO DAILY (Reported) Scheduled PRN Alprazolam (Alprazolam) 1 MG PO DAILY PRN PRN ANXIETY (Reported) Hydrocodone/Apap 5-325 ([place] 5-325 Tablet) 1 TAB PO PRN Q6HRS PRN PRN PAIN Ketorolac Tromethamine (Ketorolac Tromethamine) 30 MG IV DAILY PRN PRN MIGRAINE HEADACHE (Reported) Sumatriptan Succinate (Sumavel Dosepro) 6 MG SQ PRN MIGRAINE HEADACHE (Reported ) Trazodone Hcl (Trazodone Hcl) 50 MG PO DAILY PRN PRN MIGRAINE HEADACHE (Reported ) Miscellaneous Medications Aspirin (Aspirin) 81 MG PO (Reported) Blackey-3 Fatty Acids (Fish Oil) 1,400 MG PO (Reported) Zolpidem Tartrate (Zolpidem Tartrate) 10 MG PO (Reported) Follow Up pcp in 2 weeks ISSAC BATRES MD Jul 20, 2016 13:07
[2016-07-20 15:00] VITALS: BP 120/71
== END 2016-07-20 16:55 | disposition home or self-care (01) ==
LOC: ER 01:23 → 6 SOUTH 02:38
PROVIDERS: ADMIT Internal Medicine; ATTEND Internal Medicine
DX: R07.9 Chest pain, unspecified (principal); R06.00 Dyspnea, unspecified; E66.01 Morbid (severe) obesity due to excess calories; I10 Essential (primary) hypertension; E03.9 Hypothyroidism, unspecified; E78.5 Hyperlipidemia, unspecified; G43.909 Migraine, unspecified, not intractable, without status migrainosus; K76.0 Fatty (change of) liver, not elsewhere classified; J40 Bronchitis, not specified as acute or chronic; K21.9 Gastro-esophageal reflux disease without esophagitis; F41.9 Anxiety disorder, unspecified; F32.9 Major depressive disorder, single episode, unspecified; E78.00 Pure hypercholesterolemia, unspecified; Z83.3 Family history of diabetes mellitus; Z87.11 Personal history of peptic ulcer disease; Z86.73 Personal history of transient ischemic attack (TIA), and cerebral infarction without residual deficits; Z87.891 Personal history of nicotine dependence; Z96.659 Presence of unspecified artificial knee joint; Z90.49 Acquired absence of other specified parts of digestive tract
CPT/HCPCS: 36415; 71010; 80048; 80061; 80076; 82553; 83690; 83880; 84443; 84484; 85027; 93005; 93306; 96372; 96374; 96376; 99285; G0378; J1650; J2270; G0379

== ENCOUNTER 2016-08-01 00:02 | Observation (INO) | payer BC, MEDICARE ==
[~2016-08-01] VITALS: Ht 170.2 cm; Wt 153.9 kg
[~2016-08-01 00:02] MED LIST changes: +CYCL10TA2 PO; +KETO30SY2 IV; +KRIL1CAP5 PO; +MELA5TAB4 PO; +TRAZ50TA15 PO; +[UNRECOGNIZED DRUG - CODE] SQ
[2016-08-01 00:42] LABS: BASO % 1 % (0-3); EOS % 3 % (0-3); HEMOGLOBIN 12.1 g/dL (12.0-15.5); LYMPH % 19 % (24-48); MEAN CORPUSCULAR HEMOGLOBIN 28 pg (25-35); MEAN CORPUSCULAR HGB CONC 33 g/dL (31-37); MEAN CORPUSCULAR VOLUME 86 fL (79-100); MONO % 5 % (0-9); NEUT % 72 % (31-73); PLATELET COUNT 186 x10^3/uL (140-400); RED BLOOD COUNT 4.31 x10^6/uL (3.50-5.40); RED CELL DISTRIBUTION WIDTH 12.9 % (11.5-14.5); WHITE BLOOD COUNT 5.1 x10^3/uL (4.0-11.0)
[2016-08-01 01:00] LABS: CALCIUM 9.5 mg/dL (8.5-10.1); CREATININE 0.9 mg/dL (0.6-1.0); GFR 64.5; POTASSIUM 4.2 mmol/L (3.5-5.1)
[2016-08-01] MEDS ORDERED: hydrALAZINE 20 MG/ML VIAL. IVP ONE (01:00)
[2016-08-01] MEDS ORDERED: ACETAMINOPHEN 325 MG TABLET. PO PRN (01:15)
[2016-08-01] MEDS ORDERED: FENTANYL PF 100 MCG/2 ML VIAL. IV ONE (01:15)
[2016-08-01] MEDS ORDERED: ONDANSETRON PF 4 MG/2 ML VIAL. IV PRN (01:15)
[2016-08-01] MEDS ORDERED: FENTANYL PF 100 MCG/2 ML VIAL. IV PRN (01:15)
--- NOTE | 2016-08-01 01:19 | PHYS DOC ---
Past Medical History Past Medical History: Diverticulitis, Diverticulosis, High Cholesterol, Hypertension, Hypothyroid, Migraines Additional Past Medical Histor: FATTY LIVER DISEASE, CVA, ULCERS Past Surgical History: Appendectomy, Cholecystectomy, , Hysterectomy, Knee Replacement Alcohol Use: None Drug Use: None Adult General Chief Complaint Chief Complaint: CHEST PAIN HPI HPI 55-year-old female who presents with ongoing chest pain that she rates a 10 out of 10 and localizes to her right upper chest and that radiates into her back that is worse with exertion and has been there for the last several weeks. Patient has been admitted recently for this approximately 12 days ago and a echocardiogram and EKG done at that time. Patient states she was told her chest pain with improvement in next several days but states it is not. Patient does have history of hypertension and anxiety. She denies any smoking history. She denies any trauma or overexertion. Review of Systems Review of Systems Constitutional: Denies fever or chills [] Eyes: Denies change in visual acuity, redness, or eye pain [] HENT: Denies nasal congestion or sore throat [] Respiratory: Denies cough or shortness of breath [] Cardiovascular: No additional information not addressed in HPI [] GI: Denies abdominal pain, nausea, vomiting, bloody stools or diarrhea [] : Denies dysuria or hematuria [] Musculoskeletal: Denies back pain or joint pain [] Integument: Denies rash or skin lesions [] Neurologic: Denies headache, focal weakness or sensory changes [] Endocrine: Denies polyuria or polydipsia [] Current Medications Current Medications Current Medications Medications (Trade) Dose Ordered Sig/Aretha Start Time Stop Time Status Last Admin Dose Admin Acetaminophen (Tylenol) 650 mg PRN Q4HRS PRN 08/01/16 01:15 08/02/16 01:14 Fentanyl Citrate (Fentanyl 2ml Vial) 50 mcg PRN Q2HR PRN 08/01/16 01:15 08/02/16 01:14 Hydralazine HCl (Apresoline) 10 mg 1X ONCE 08/01/16 01:00 08/01/16 01:01 DC Ondansetron HCl (Zofran) 4 mg PRN Q8HRS PRN 08/01/16 01:15 08/02/16 01:14 Allergies Allergies Allergies Coded Allergies Type Severity Reaction Last Updated Verified Fenofibrate Nanocrystallized Allergy Intermediate migraines 09/30/14 Yes celecoxib Allergy Intermediate 09/30/14 Yes colesevelam Allergy Intermediate 09/30/14 Yes dimenhydrinate Allergy Intermediate 09/30/14 Yes duloxetine Allergy Intermediate 09/30/14 Yes fenofibrate Allergy Intermediate 09/30/14 Yes fenofibrate,micronized Allergy Intermediate migraines 09/30/14 Yes metoclopramide Allergy Intermediate itching 09/30/14 Yes pantoprazole sodium Allergy Intermediate rash 09/30/14 Yes pregabalin Allergy Intermediate rash 09/30/14 Yes vilazodone hydrochloride Allergy Intermediate 09/30/14 Yes NSAIDS (Non-Steroidal Anti-Inflamma Adverse Reaction Intermediate ULCERS Yes Figdxgm-Cpl-Anp Reductase Inhibitor Adverse Reaction Intermediate INCREASED LIVER ENZYMES 09/30/14 Yes Physical Exam Physical Exam Constitutional: Well developed, well nourished, no acute distress, non-toxic appearance. [] HENT: Normocephalic, atraumatic, bilateral external ears normal, oropharynx moist, no oral exudates, nose normal. [] Eyes: PERRLA, EOMI, conjunctiva normal, no discharge. [] Neck: Normal range of motion, no tenderness, supple, no stridor. [] Cardiovascular:Heart rate regular rhythm, no murmur [] Lungs & Thorax: Bilateral breath sounds clear to auscultation [] Abdomen: Bowel sounds normal, soft, no tenderness, no masses, no pulsatile masses. [] Skin: Warm, dry, no erythema, no rash. [] Back: No tenderness, no CVA tenderness. [] Extremities: No tenderness, no cyanosis, no clubbing, ROM intact, no edema. [] Neurologic: Alert and oriented X 3, normal motor function, normal sensory function, no focal deficits noted. [] Psychologic: Affect normal, judgement normal, mood normal. [] Current Patient Data Lab Values Laboratory Tests Test 08/01/16 00:30 White Blood Count 5.1x10^3/uL (4.0-11.0) Red Blood Count 4.31x10^6/uL (3.50-5.40) Hemoglobin 12.1g/dL (12.0-15.5) Hematocrit 37.0% (36.0-47.0) Mean Corpuscular Volume 86fL (79-100) Mean Corpuscular Hemoglobin 28pg (25-35) Mean Corpuscular Hemoglobin Concent 33g/dL (31-37) Red Cell Distribution Width 12.9% (11.5-14.5) Platelet Count 186x10^3/uL (140-400) Neutrophils (%) (Auto) 72% (31-73) Lymphocytes (%) (Auto) 19% (24-48) L Monocytes (%) (Auto) 5% (0-9) Eosinophils (%) (Auto) 3% (0-3) Basophils (%) (Auto) 1% (0-3) Neutrophils # (Auto) 3.6x10^3uL (1.8-7.7) Lymphocytes # (Auto) 1.0x10^3/uL (1.0-4.8) Monocytes # (Auto) 0.3x10^3/uL (0.0-1.1) Eosinophils # (Auto) 0.2x10^3/uL (0.0-0.7) Basophils # (Auto) 0.0x10^3/uL (0.0-0.2) Sodium Level 142mmol/L (136-145) Potassium Level 4.2mmol/L (3.5-5.1) Chloride Level 106mmol/L (98-107) Carbon Dioxide Level 30mmol/L (21-32) Anion Gap 6 (6-14) Blood Urea Nitrogen 7mg/dL (7-20) Creatinine 0.9mg/dL (0.6-1.0) Estimated GFR (Cockcroft-Gault) 64.5 Glucose Level 105mg/dL (70-99) H Calcium Level 9.5mg/dL (8.5-10.1) Laboratory Tests 08/01/16 00:30 Laboratory Tests 08/01/16 00:30 EKG EKG EKG as interpreted by me shows a sinus rhythm with rate of 83 bpm. There are no acute ST findings. Radiology/Procedures Radiology/Procedures One view of the chest as interpreted by me does not reveal any acute cardiopulmonary process. This is compared to previous x-ray obtained on 19 July 2016 Course & Med Decision Making Course & Med Decision Making Pertinent Labs and Imaging studies reviewed. (See chart for details) 55-year-old female be admitted the hospital for her ongoing chest pain that has not resolved. I will be placing a cardiology consult as well. Her EKG, chest x- ray and blood work including a set of cardiac enzymes is negative. I'll be ordering her IV pain control as needed for. Her case be discussed with the hospitalist, Dr. Luna, who will admit the patient for further evaluation and treatment. Dragon Disclaimer Dragon Disclaimer This electronic medical record was generated, in whole or in part, using a voice recognition dictation system. Departure Departure Referrals: RUTH PEREZ (PCP) DELANEY SUAZO DO Aug 01, 2016 01:19
--- NOTE | 2016-08-01 02:07 | ACF ---
Admission Forms Criteria PAIN MANAGEMENT [facility] Clinical Indications for Admission to Inpatient Care (Place 'X' for any and all applicable criteria): Hospital admission is needed for appropriate care of the patient because of ANY ONE of the following are present (1)(2)(3)(4)(5): [X]I. Severe pain requiring acute inpatient management as indicated by ALL of the following (2)(5)(10): [X]a) Continuous or frequent (eg, every 2 to 4 hours) parenteral analgesics required [A] [ ]b) Necessity (ie, alternative approaches not effective) for analgesic regimen that can only be performed or initiated in inpatient setting [ ]II. Pain causing debilitation to the point of inability to function or be supported at any other level of care [ ]III. Severe side effects from pain medications as indicated by ANY ONE of the following (12)(13)(14)(15): [ ]a) Uncontrollable seizures [ ]b) Cardiac arrhythmias [ ]c) Severe volume depletion [ ]d) Vomiting that is uncontrollable at any other level of care [ ]e) Altered mental status (Sharon coma scale score less than 13) [ ]f) Obstipation with inadequate GI function to maintain nutrition [ ]g) Dehydration that is severe or persistent The original [employer] content created by [employer] has been revised. The portions of the content which have been revised are identified through the use of italic text or in bold, and [employer] include [facility] has neither reviewed nor approved the modified material. All other unmodified content is copyright [employer]. Please see references footnoted in the original [employer] edition 2016 Admission Criteria Met?: Yes MIKEY BUCK Aug 01, 2016 02:07
[2016-08-01 02:30] VITALS: BP 145/73
[2016-08-01 03:00] VITALS: BP 145/73
[2016-08-01 07:00] VITALS: BP 137/79
--- NOTE | 2016-08-01 07:43 | RAD ---
Exam: AP portable chest. History: Chest pain. Comparison: None. Findings: The heart and mediastinal structures are within normal limits for size. Lungs are without infiltrate. No pneumothorax or pleural effusion is appreciated. Impression: 1. No acute cardiopulmonary process.
[2016-08-01] MEDS ORDERED: NON FORMULARY ITEM (Melatonin 5 MG) PO SCH (09:00)
[2016-08-01] MEDS ORDERED: traZODone 50 MG TABLET. PO PRN (09:00)
[2016-08-01] MEDS ORDERED: ASPIRIN 81 MG TAB.CHEW PO SCH (09:00)
[2016-08-01] MEDS ORDERED: ALPRAZOLAM 1 MG TABLET PO PRN (09:00)
[2016-08-01] MEDS ORDERED: TRAMADOL 50 MG TABLET. PO SCH (09:00)
[2016-08-01] MEDS ORDERED: HYDROCODONE/APAP 5/325MG TABLET. PO PRN (09:00)
[2016-08-01] MEDS ORDERED: KETOROLAC TROMETHAMINE 30 MG/ML SYRINGE. IV PRN (09:00)
--- NOTE | 2016-08-01 09:22 | PDOC1 ---
History and Physical Date of Admission Date of Admission DATE: 08/01/16 TIME: 09:22 Identification/Chief Complaint Chief Complaint chest pain Source Source: Chart review, Patient History of Present Illness History of Present Illness Ms. Ng is a 55-year-old female admit for chest pain. Dyspnea and tachypnea related to pain, complained that she had crushing chest pain and couldn't breathe this AM. Pain rated 10.10 that she rates a 10 out of 10 and localizes to her right upper chest and that radiates into her back that is worse with exertion and has been there for the last several weeks. Patient has been admitted recently for this approximately 12 days ago and a echocardiogram and EKG done at that time. Patient states she was told her chest pain with improvement in next several days but states it is not. Patient does have history of hypertension and anxiety. She denies any smoking history. She denies any trauma or overexertion. Past Medical History Cardiovascular: HTN, Hyperlipidemia Pulmonary: Other CENTRAL NERVOUS SYSTEM: Migraine, TIA GI: Diverticulosis, Peptic Ulcer disease, Other Heme/Onc: Anemia NOS Hepatobiliary: Other Psych: Anxiety, Depression Musculoskeletal: low back pain Endocrine: Hypothyroidism Dermatology: No pertinent hx Past Surgical History Past Surgical History: Appendectomy, Cholecystectomy, , Total knee replacement, Hysterectomy Family History Family History: No Significant, Diabetes, Heart Disease Social History Smoke: No ALCOHOL: none Drugs: None Current Problem List Problem List Problems Medical Problems: (1) Chest pain Status: Acute Problems: Current Medications Current Medications Current Medications Hydralazine HCl (Apresoline) 10 mg 1X ONCE IVP ; Start 08/01/16 at 01:00; Stop 08/01/16 at 01:01; Status DC Fentanyl Citrate (Fentanyl 2ml Vial) 50 mcg 1X ONCE IV Last administered on t 03:46; Start 08/01/16 at 01:15; Stop 08/01/16 at 01:16; Status DC Ondansetron HCl (Zofran) 4 mg PRN Q8HRS PRN IV NAUSEA/VOMITING; Start 08/01/16 at 01:15; Stop 08/02/16 at 01:14 Fentanyl Citrate (Fentanyl 2ml Vial) 50 mcg PRN Q2HR PRN IV PAIN; Start at 01:15; Stop 08/02/16 at 01:14 Acetaminophen (Tylenol) 650 mg PRN Q4HRS PRN PO FEVER Last administered on 08/01t 08:49; Start 08/01/16 at 01:15; Stop 08/02/16 at 01:14 Alprazolam (Xanax) 1 mg PRN DAILY PRN PO ANXIETY; Start 08/01/16 at 09:00 Aspirin (Children'S Aspirin) 81 mg DAILY PO ; Start 08/01/16 at 09:00 Cetirizine HCl (Zyrtec) 10 mg DAILY PO ; Start 08/01/16 at 09:30 Cyclobenzaprine HCl (Flexeril) 10 mg TID PO ; Start 08/01/16 at 09:30 Acetaminophen/ Hydrocodone Bitart (Lortab 5/325) 1 tab PRN Q6HRS PRN PO PAIN; Start 08/01/16 at 09:00 Ketorolac Tromethamine (Toradol) 30 mg PRN DAILY PRN IV MIGRAINE HEADACHE; Start 08/01/16 at 09:00; Stop 08/06/16 at 08:59 Levothyroxine Sodium (Synthroid) 125 mcg DAILY07 PO ; Start 08/01/16 at 09:30 Losartan Potassium (Cozaar) 50 mg HS PO ; Start 08/01/16 at 21:00 Methocarbamol (Robaxin) 500 mg HS PO ; Start 08/01/16 at 21:00 Niacin (Slo-Niacin) 500 mg HS PO ; Start 08/01/16 at 21:00 Tramadol HCl (Ultram) 50 mg DAILY PO ; Start 08/01/16 at 09:00 Trazodone HCl (Desyrel) 50 mg PRN DAILY PRN PO MIGRAINE HEADACHE; Start at 09:00 Fluticasone Propionate (Flonase) 2 spray DAILY NS ; Start 08/01/16 at 09:30 Fluoxetine HCl (Prozac) 40 mg DAILY PO ; Start 08/01/16 at 09:30 Fish Oil (Fish Oil) 1,000 mg DAILY PO ; Start 08/01/16 at 09:30 Non-Formulary Medication 5 mg DAILY PO ; Start 08/01/16 at 09:00; Status UNV Zolpidem Tartrate (Ambien) 5 mg HS PO ; Start 08/01/16 at 21:00 Zolpidem Tartrate (Ambien) 5 mg PRN QHS PRN PO IF CONTINUED INSOMNIA; Start at 09:30 Active Scripts Active [place] 5-325 Tablet (Acetaminophen/Hydrocodone Bitart) 1 Each Tablet 1 Tab PO PRN Q6HRS PRN Reported Ketorolac Tromethamine 30 Mg/1 Ml Vial 30 Mg IV DAILY PRN Sumavel Dosepro (Sumatriptan Succinate) 6 Mg/0.5 Ml Ndl.fr.inj 6 Mg SQ PRN Tramadol Hcl 50 Mg Tablet 50 Mg PO DAILY Trazodone Hcl 50 Mg Tablet 50 Mg PO DAILY PRN Melatonin 5 Mg Tab.rapdis 5 Mg PO DAILY Cyclobenzaprine Hcl 10 Mg Tablet 1 Tab PO TID Krill Oil 1,000 Mg Softgel (Krill/Om3/Dha/Epa/Om6/Lip/Astx) 1 Each Capsule 1 Each PO DAILY Niaspan (Niacin) 500 Mg Tab.er.24h 500 Mg PO HS Flunisolide 25 Ml Berkey 1 Berkey NS DAILY One spray per nostril Zyrtec (Cetirizine Hcl) 10 Mg Tablet 1 Tab PO DAILY Fish Oil ([place]-3 Fatty Acids) 500 Mg Capsule.dr 1,400 Mg PO Aspirin 81 Mg Tab.chew 81 Mg PO Fluoxetine Hcl 20 Mg Tablet 40 Mg PO DAILY Zolpidem Tartrate 10 Mg Tablet 10 Mg PO Robaxin (Methocarbamol) 500 Mg Tablet 500 Mg PO HS Losartan Potassium 50 Mg Tablet 50 Mg PO HS Levothyroxine Sodium 125 Mcg Tablet 125 Mcg PO DAILY Alprazolam 1 Mg Tablet 1 Mg PO DAILY PRN Allergies Allergies: Coded Allergies: Fenofibrate Nanocrystallized (Verified Allergy, Intermediate, migraines, ) celecoxib (Verified Allergy, Intermediate, 09/30/14) colesevelam (Verified Allergy, Intermediate, 09/30/14) dimenhydrinate (Verified Allergy, Intermediate, 09/30/14) duloxetine (Verified Allergy, Intermediate, 09/30/14) fenofibrate (Verified Allergy, Intermediate, 09/30/14) fenofibrate,micronized (Verified Allergy, Intermediate, migraines, 09/30/14 ) metoclopramide (Verified Allergy, Intermediate, itching, 09/30/14) pantoprazole sodium (Verified Allergy, Intermediate, rash, 09/30/14) pregabalin (Verified Allergy, Intermediate, rash, 09/30/14) vilazodone hydrochloride (Verified Allergy, Intermediate, 09/30/14) NSAIDS (Non-Steroidal Anti-Inflamma (Verified Adverse Reaction, Intermediate, ULCERS, 09/30/14) Miuembu-Cjd-Ehy Reductase Inhibitor (Verified Adverse Reaction, Intermediate, INCREASED LIVER ENZYMES, 09/30/14) ROS General: YES: Fatigue, Malaise, No: Appetite, Chills, Night Sweats, Other PSYCHOLOGICAL ROS: No: Anxiety, Behavioral Disorder, Concentration difficultie , Decreased libido, Depression, Disorientation, Hallucinations, Hostility, Irritablity, Memory difficulties, Mood Swings, Obsessive thoughts, Other, Physical abuse, Sexual abuse, Sleep disturbances, Suicidal ideation Eyes: No Blurry vision, No Decreased vision, No Double vision, No Dry eyes, No Excessive tearing, No Eye Pain, No Itchy Eyes, No Loss of vision, No Other, No Photophobia, No Scotomata, No Uses contacts, No Uses glasses HEENT: YES: Heacaches, No: Epistaxis, Hearing change, Nasal congestion, Nasal discharge, Oral lesions, Other, Sinus pain, Sneezing, Snoring, Sore Throat, Tinnitus, Vertigo, Visual Changes, Vocal changes Respiratory: No: Cough, Hemoptysis, Orthopnea, Other, Pleuritic Pain, SOB with excertion, Shortness of breath, Sputum Changes, Stridor, Tachypnea, Wheezing Cardiovascular: yes Chest Pain, No Edema, No Lt Headedness, No Orthopnea, No Other, No Palpitations, No Paroxysmal Noc. Dyspnea Gastrointestinal: No Abdominal Pain, No Constipation, No Diarrhea, No Hematochezia, No Melena, No Nausea, No Other, No Vomiting Genitourinary: No , No , No , No , No , No , No , No Discharge, No Dysuria, No Flank Pain, No Frequency, No Hematuria, No Incontinence, No Other, No Pain, No Retention, No Urgency Musculoskeletal: Yes Pain In:, No Gait Disturbance, No Joint Pain, No Joint Stiffness, No Joint Swelling, No Muscle Pain, No Muscular Weakness, No Other, No Swelling In: Neurological: Yes Headaches, Yes Memory Loss, Yes Other, No Behavorial Changes, No Bowel/Bladder ControlChng, No Confusion, No Dizziness, No Gait Disturbance, No Impaired Coord/balance, No Numbness/Tingling , No Seizures, No Speech Problems, No Tremors, No Visual Changes, No Weakness Skin: Yes Dry Skin, No Acne, No Eczema, No Hair Changes, No Lumps, No Mole Changes, No Mottling, No Nail Changes, No Other, No Pruritus, No Rash, No Skin Lesion Changes Physical Exam General: Alert, Oriented X3, Cooperative, mild distress HEENT: Atraumatic, PERRLA Lungs: Clear to auscultation, Other (reproducible pain to sternum) Abdomen: Normal bowel sounds, Soft (very obese) Rectal Exam: not examined Skin: No rashes Psych/Mental Status: Mental status NL, Other (anxiety, ) Vitals Vitals Vital Signs Date Time Temp Pulse Resp B/P Pulse Ox O2 Delivery O2 Flow Rate FiO2 08/01/16 07:53 Room Air 08/01/16 07:00 97.5 93 18 137/79 95 97.5 Labs Labs Laboratory Tests Test 08/01/16 00:30 08/01/16 06:48 White Blood Count 5.1x10^3/uL (4.0-11.0) Red Blood Count 4.31x10^6/uL (3.50-5.40) Hemoglobin 12.1g/dL (12.0-15.5) Hematocrit 37.0% (36.0-47.0) Mean Corpuscular Volume 86fL (79-100) Mean Corpuscular Hemoglobin 28pg (25-35) Mean Corpuscular Hemoglobin Concent 33g/dL (31-37) Red Cell Distribution Width 12.9% (11.5-14.5) Platelet Count 186x10^3/uL (140-400) Neutrophils (%) (Auto) 72% (31-73) Lymphocytes (%) (Auto) 19% (24-48) Monocytes (%) (Auto) 5% (0-9) Eosinophils (%) (Auto) 3% (0-3) Basophils (%) (Auto) 1% (0-3) Neutrophils # (Auto) 3.6x10^3uL (1.8-7.7) Lymphocytes # (Auto) 1.0x10^3/uL (1.0-4.8) Monocytes # (Auto) 0.3x10^3/uL (0.0-1.1) Eosinophils # (Auto) 0.2x10^3/uL (0.0-0.7) Basophils # (Auto) 0.0x10^3/uL (0.0-0.2) Sodium Level 142mmol/L (136-145) Potassium Level 4.2mmol/L (3.5-5.1) Chloride Level 106mmol/L (98-107) Carbon Dioxide Level 30mmol/L (21-32) Anion Gap 6 (6-14) Blood Urea Nitrogen 7mg/dL (7-20) Creatinine 0.9mg/dL (0.6-1.0) Estimated GFR (Cockcroft-Gault) 64.5 Glucose Level 105mg/dL (70-99) Calcium Level 9.5mg/dL (8.5-10.1) Troponin I Quantitative < 0.017ng/mL (0.000-0.055) < 0.017ng/mL (0.000-0.055) Lipase 62U/L (73-393) Laboratory Tests Test 08/01/16 00:30 08/01/16 06:48 White Blood Count 5.1x10^3/uL (4.0-11.0) Red Blood Count 4.31x10^6/uL (3.50-5.40) Hemoglobin 12.1g/dL (12.0-15.5) Hematocrit 37.0% (36.0-47.0) Mean Corpuscular Volume 86fL (79-100) Mean Corpuscular Hemoglobin 28pg (25-35) Mean Corpuscular Hemoglobin Concent 33g/dL (31-37) Red Cell Distribution Width 12.9% (11.5-14.5) Platelet Count 186x10^3/uL (140-400) Neutrophils (%) (Auto) 72% (31-73) Lymphocytes (%) (Auto) 19% (24-48) Monocytes (%) (Auto) 5% (0-9) Eosinophils (%) (Auto) 3% (0-3) Basophils (%) (Auto) 1% (0-3) Neutrophils # (Auto) 3.6x10^3uL (1.8-7.7) Lymphocytes # (Auto) 1.0x10^3/uL (1.0-4.8) Monocytes # (Auto) 0.3x10^3/uL (0.0-1.1) Eosinophils # (Auto) 0.2x10^3/uL (0.0-0.7) Basophils # (Auto) 0.0x10^3/uL (0.0-0.2) Sodium Level 142mmol/L (136-145) Potassium Level 4.2mmol/L (3.5-5.1) Chloride Level 106mmol/L (98-107) Carbon Dioxide Level 30mmol/L (21-32) Anion Gap 6 (6-14) Blood Urea Nitrogen 7mg/dL (7-20) Creatinine 0.9mg/dL (0.6-1.0) Estimated GFR (Cockcroft-Gault) 64.5 Glucose Level 105mg/dL (70-99) Calcium Level 9.5mg/dL (8.5-10.1) Troponin I Quantitative < 0.017ng/mL (0.000-0.055) < 0.017ng/mL (0.000-0.055) Lipase 62U/L (73-393) VTE Prophylaxis Ordered VTE Prophylaxis Devices: No VTE Pharmacological Prophylaxi: Yes Assessment/Plan Assessment/Plan chest pain, Muscular, costochondritis sternal pain to palpation CV consulted, but risk is relatively low from story, Troponins ordered from ER depression and anxiety morbid obesity, BMI 53 multiple drug allergies, statins and NSAIDS GERD obs LUCIO MCCAULEY MD Aug 01, 2016 09:22
[2016-08-01 09:27] LABS: CHOLESTEROL/HDL RATIO 3.2
[2016-08-01] MEDS ORDERED: CETIRIZINE HCL 10 MG TABLET PO SCH (09:30)
[2016-08-01] MEDS ORDERED: FLUTICASONE 50MCG/NASAL SPRAY 16GM BOTTLE. NS SCH (09:30)
[2016-08-01] MEDS ORDERED: ZOLPIDEM 5 MG TABLET. PO PRN (09:30)
[2016-08-01] MEDS ORDERED: OXYCODONE IR 5 MG TABLET. PO PRN ×2 (09:30)
[2016-08-01] MEDS ORDERED: LEVOTHYROXINE 125 MCG TABLET PO SCH (09:30)
[2016-08-01] MEDS ORDERED: LIDOCAINE (700MG/PATCH) PATCH. TD SCH (09:30)
[2016-08-01] MEDS ORDERED: OMEGA-3 FATTY ACIDS/FISH OIL 1,000 MG CAPSULE. PO SCH (09:30)
[2016-08-01] MEDS ORDERED: FLUOXETINE HCL 20 MG CAPSULE PO SCH (09:30)
[2016-08-01] MEDS: CYCLOBENZAPRINE 10 MG TABLET. PO SCH ×2 (10:09→14:16)
[2016-08-01 11:03] VITALS: BP 137/81
--- NOTE | 2016-08-01 11:40 | EKG ---
[facility] [address] [place] [address] Test Date: 2016-08-01 Test Time: 00:15:20 Pat Name: LULU WEINBERG Department: Room: 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
--- NOTE | 2016-08-01 14:26 | PDOC3 ---
Discharge Summary Visit Information Date of Admission: Aug 01, 2016 Date of Discharge: Aug 01, 2016 Admitting Diagnosis: chest pain Final Diagnosis chest pain, Muscular, costochondritis sternal pain to palpation depression and anxiety morbid obesity, BMI 53 multiple drug allergies, statins and NSAIDS GERD Problems Medical Problems: (1) Chest pain Status: Acute Brief Hospital Course Allergies Allergies Coded Allergies Type Severity Reaction Last Updated Verified Fenofibrate Nanocrystallized Allergy Intermediate migraines 09/30/14 Yes celecoxib Allergy Intermediate 09/30/14 Yes colesevelam Allergy Intermediate 09/30/14 Yes dimenhydrinate Allergy Intermediate 09/30/14 Yes duloxetine Allergy Intermediate 09/30/14 Yes fenofibrate Allergy Intermediate 09/30/14 Yes fenofibrate,micronized Allergy Intermediate migraines 09/30/14 Yes metoclopramide Allergy Intermediate itching 09/30/14 Yes pantoprazole sodium Allergy Intermediate rash 09/30/14 Yes pregabalin Allergy Intermediate rash 09/30/14 Yes vilazodone hydrochloride Allergy Intermediate 09/30/14 Yes NSAIDS (Non-Steroidal Anti-Inflamma Adverse Reaction Intermediate ULCERS Yes Glzovlc-Hww-Yih Reductase Inhibitor Adverse Reaction Intermediate INCREASED LIVER ENZYMES 09/30/14 Yes Vital Signs Vital Signs Date Time Temp Pulse Resp B/P Pulse Ox O2 Delivery O2 Flow Rate FiO2 08/01/16 11:19 18 94 Room Air 08/01/16 11:03 96.6 99 137/81 96.6 Lab Results Laboratory Tests Test 08/01/16 00:30 08/01/16 06:48 08/01/16 13:01 White Blood Count 5.1x10^3/uL (4.0-11.0) Red Blood Count 4.31x10^6/uL (3.50-5.40) Hemoglobin 12.1g/dL (12.0-15.5) Hematocrit 37.0% (36.0-47.0) Mean Corpuscular Volume 86fL (79-100) Mean Corpuscular Hemoglobin 28pg (25-35) Mean Corpuscular Hemoglobin Concent 33g/dL (31-37) Red Cell Distribution Width 12.9% (11.5-14.5) Platelet Count 186x10^3/uL (140-400) Neutrophils (%) (Auto) 72% (31-73) Lymphocytes (%) (Auto) 19% (24-48) Monocytes (%) (Auto) 5% (0-9) Eosinophils (%) (Auto) 3% (0-3) Basophils (%) (Auto) 1% (0-3) Neutrophils # (Auto) 3.6x10^3uL (1.8-7.7) Lymphocytes # (Auto) 1.0x10^3/uL (1.0-4.8) Monocytes # (Auto) 0.3x10^3/uL (0.0-1.1) Eosinophils # (Auto) 0.2x10^3/uL (0.0-0.7) Basophils # (Auto) 0.0x10^3/uL (0.0-0.2) Sodium Level 142mmol/L (136-145) Potassium Level 4.2mmol/L (3.5-5.1) Chloride Level 106mmol/L (98-107) Carbon Dioxide Level 30mmol/L (21-32) Anion Gap 6 (6-14) Blood Urea Nitrogen 7mg/dL (7-20) Creatinine 0.9mg/dL (0.6-1.0) Estimated GFR (Cockcroft-Gault) 64.5 Glucose Level 105mg/dL (70-99) Calcium Level 9.5mg/dL (8.5-10.1) Troponin I Quantitative < 0.017ng/mL (0.000-0.055) < 0.017ng/mL (0.000-0.055) < 0.017ng/mL (0.000-0.055) Triglycerides Level 141mg/dL (0-150) Cholesterol Level 231mg/dL (0-200) LDL Cholesterol, Calculated 131mg/dL (0-100) VLDL Cholesterol, Calculated 28mg/dL (0-40) HDL Cholesterol 72mg/dL (40-60) Cholesterol/HDL Ratio 3.2 Lipase 62U/L (73-393) Laboratory Tests Test 08/01/16 00:30 08/01/16 06:48 08/01/16 13:01 White Blood Count 5.1x10^3/uL (4.0-11.0) Red Blood Count 4.31x10^6/uL (3.50-5.40) Hemoglobin 12.1g/dL (12.0-15.5) Hematocrit 37.0% (36.0-47.0) Mean Corpuscular Volume 86fL (79-100) Mean Corpuscular Hemoglobin 28pg (25-35) Mean Corpuscular Hemoglobin Concent 33g/dL (31-37) Red Cell Distribution Width 12.9% (11.5-14.5) Platelet Count 186x10^3/uL (140-400) Neutrophils (%) (Auto) 72% (31-73) Lymphocytes (%) (Auto) 19% (24-48) Monocytes (%) (Auto) 5% (0-9) Eosinophils (%) (Auto) 3% (0-3) Basophils (%) (Auto) 1% (0-3) Neutrophils # (Auto) 3.6x10^3uL (1.8-7.7) Lymphocytes # (Auto) 1.0x10^3/uL (1.0-4.8) Monocytes # (Auto) 0.3x10^3/uL (0.0-1.1) Eosinophils # (Auto) 0.2x10^3/uL (0.0-0.7) Basophils # (Auto) 0.0x10^3/uL (0.0-0.2) Sodium Level 142mmol/L (136-145) Potassium Level 4.2mmol/L (3.5-5.1) Chloride Level 106mmol/L (98-107) Carbon Dioxide Level 30mmol/L (21-32) Anion Gap 6 (6-14) Blood Urea Nitrogen 7mg/dL (7-20) Creatinine 0.9mg/dL (0.6-1.0) Estimated GFR (Cockcroft-Gault) 64.5 Glucose Level 105mg/dL (70-99) Calcium Level 9.5mg/dL (8.5-10.1) Troponin I Quantitative < 0.017ng/mL (0.000-0.055) < 0.017ng/mL (0.000-0.055) < 0.017ng/mL (0.000-0.055) Triglycerides Level 141mg/dL (0-150) Cholesterol Level 231mg/dL (0-200) LDL Cholesterol, Calculated 131mg/dL (0-100) VLDL Cholesterol, Calculated 28mg/dL (0-40) HDL Cholesterol 72mg/dL (40-60) Cholesterol/HDL Ratio 3.2 Lipase 62U/L (73-393) Brief Hospital Course Ms. Ng is a 55 old admitted for chest pain CV consulted, but risk is relatively low from story, Troponins ordered from ER pain relived by lidocaine patch, cleared by CV, she felt that patch solved all her pain Discharge Information Condition at Discharge: Improved Follow Up: Weeks Disposition/Orders: D/C to Home Scheduled Cetirizine Hcl (Zyrtec) 1 TAB PO DAILY (Reported) Cyclobenzaprine Hcl (Cyclobenzaprine Hcl) 1 TAB PO TID (Reported) Flunisolide (Flunisolide) 1 SPRAY NS DAILY (Reported) Fluoxetine Hcl (Fluoxetine Hcl) 40 MG PO DAILY (Reported) Krill/Om3/Dha/Epa/Om6/Lip/Astx (Krill Oil 1,000 Mg Softgel) 1 EACH PO DAILY ( Reported) Levothyroxine Sodium (Levothyroxine Sodium) 125 MCG PO DAILY (Reported) Losartan Potassium (Losartan Potassium) 50 MG PO HS (Reported) Melatonin (Melatonin) 5 MG PO DAILY (Reported) Methocarbamol (Robaxin) 500 MG PO HS (Reported) Niacin (Niaspan) 500 MG PO HS (Reported) Tramadol Hcl (Tramadol Hcl) 50 MG PO DAILY (Reported) Scheduled PRN Alprazolam (Alprazolam) 1 MG PO DAILY PRN PRN ANXIETY (Reported) Hydrocodone/[place] 5-325 ([place] 5-325 Tablet) 1 TAB PO PRN Q6HRS PRN PRN PAIN Ketorolac Tromethamine (Ketorolac Tromethamine) 30 MG IV DAILY PRN PRN MIGRAINE HEADACHE (Reported) Sumatriptan Succinate (Sumavel Dosepro) 6 MG SQ PRN MIGRAINE HEADACHE (Reported ) Trazodone Hcl (Trazodone Hcl) 50 MG PO DAILY PRN PRN MIGRAINE HEADACHE (Reported ) Miscellaneous Medications Aspirin (Aspirin) 81 MG PO (Reported) [place]-3 Fatty Acids (Fish Oil) 1,400 MG PO (Reported) Zolpidem Tartrate (Zolpidem Tartrate) 10 MG PO (Reported) Patient Instructions Patient Instructions A/D same day f/u primary care or Dr. lara or pain clinic LUCIO MCCAULEY MD Aug 01, 2016 14:26
[2016-08-01 15:06] VITALS: BP 152/46
--- NOTE | 2016-08-01 15:12 | CONS ---
DATE OF CONSULTATION: 08/01/2016 REASON FOR CONSULTATION: Chest pain. HISTORY OF PRESENT ILLNESS: The patient is a 55-year-old woman with past medical history of morbid obesity, hypertension, and dyslipidemia with a prior history of tobacco abuse who presents to the hospital with noncardiac chest pain. She had musculoskeletal chest pain of unclear etiology. She was admitted to the hospital with similar symptoms approximately 2 weeks ago. She had a normal echocardiogram, EKG and negative enzymes. Since admission, she has had persistent pain with palpation of her sternum and costochondral muscles. She has pain with deep inspiration. She denies any exertional angina. She has not had any syncope or palpitations. She has chronic dyspnea related to her morbid obesity. PAST MEDICAL HISTORY: As noted above. SOCIAL HISTORY: The patient denies any alcohol, tobacco or illicit drug use. She was a remote smoker and quit in 2003. FAMILY HISTORY: Noncontributory. ALLERGIES: Multiple, please see medical record. CURRENT CARDIOVASCULAR MEDICATIONS: 1. Niacin 500 mg at bedtime. 2. Losartan mg at bedtime. 3. Fish oil 1000 mg daily. 4. Aspirin 81 mg daily. REVIEW OF SYSTEMS: Negative for 10 out of 14 systems reviewed, unless otherwise mentioned above in HPI. PHYSICAL EXAMINATION: VITAL SIGNS: Afebrile, 90, 18, 137/81, 94% on room air. GENERAL: She is alert and oriented, in no acute distress. HEAD AND NECK: Unremarkable. HEART: Regular rate and rhythm without any murmurs, rubs or gallops. LUNGS: Clear to auscultation. ABDOMEN: Soft, nontender, nondistended, obese. EXTREMITIES: No clubbing, cyanosis or edema. NEUROLOGIC: No focal deficits. CHEST WALL AND MUSCULOSKELETAL: She has pain with palpation of that sternum and anterior chest fall which appears to be consistent with costochondritis and/or musculoskeletal chest wall pain from pendulous breasts. DIAGNOSTIC STUDIES: EKG is unremarkable. Troponin negative x 2. Basic metabolic profile and CBC within normal limits. Echocardiogram performed 2 weeks ago reveals normal LV function without any significant evidence of pulmonary hypertension or valvular heart disease. IMPRESSION: 1. Noncardiac chest pain. 2. Hypertension. RECOMMENDATIONS: 1. Continue supportive care and treatment for her musculoskeletal chest pain. 2. No further cardiovascular testing necessary at this time. Thank you for this consultation. MARSHALL RAMIREZ MD DR: Mai JOB#: [id number] / [id number]
[2016-08-01] MEDS ORDERED: LIDO700A4 TP (15:14)
[2016-08-01] MEDS ORDERED: ZOLPIDEM 5 MG TABLET. PO SCH (21:00)
[2016-08-01] MEDS ORDERED: LOSARTAN POTASSIUM 50 MG TABLET. PO SCH (21:00)
[2016-08-01] MEDS ORDERED: NIACIN ER 500 MG TABLET.ER PO SCH (21:00)
[2016-08-01] MEDS ORDERED: METHOCARBAMOL 500 MG TABLET PO SCH (21:00)
== END 2016-08-01 16:20 | disposition home or self-care (01) ==
LOC: ER 00:02 → INTOOBSV 00:57 → 6 SOUTH 00:57
PROVIDERS: ADMIT Internal Medicine; ATTEND Internal Medicine
DX: M94.0 Chondrocostal junction syndrome [Tietze] (principal); I10 Essential (primary) hypertension; F41.9 Anxiety disorder, unspecified; E78.00 Pure hypercholesterolemia, unspecified; E03.9 Hypothyroidism, unspecified; K57.92 Diverticulitis of intestine, part unspecified, without perforation or abscess without bleeding; G43.909 Migraine, unspecified, not intractable, without status migrainosus; R06.00 Dyspnea, unspecified; R06.82 Tachypnea, not elsewhere classified; D64.9 Anemia, unspecified; Z68.43 Body mass index [BMI] 50.0-59.9, adult; E66.01 Morbid (severe) obesity due to excess calories; K21.9 Gastro-esophageal reflux disease without esophagitis; Z88.9 Allergy status to unspecified drugs, medicaments and biological substances; Z86.73 Personal history of transient ischemic attack (TIA), and cerebral infarction without residual deficits; K76.0 Fatty (change of) liver, not elsewhere classified
CPT/HCPCS: 36415; 71010; 80048; 80061; 83690; 84484; 85027; 93005; 96374; 99285; G0378; J3010; G0379

== ENCOUNTER 2016-09-03 17:07 | Inpatient (IN) | payer BC, MEDICARE ==
[~2016-09-03] VITALS: Ht 170.2 cm; Wt 153.8 kg
[~2016-09-03 17:07] MED LIST changes: +LIDO700A4 TP
--- NOTE | 2016-09-03 18:06 | PHYS DOC ---
Past Medical History Past Medical History: Diverticulitis, Diverticulosis, High Cholesterol, Hypertension, Hypothyroid, Migraines Additional Past Medical Histor: FATTY LIVER DISEASE, CVA, ULCERS Past Surgical History: Appendectomy, Cholecystectomy, , Hysterectomy, Knee Replacement Alcohol Use: None Drug Use: None Adult General Chief Complaint Chief Complaint: CHEST PAIN HPI HPI Patient is a 55 year old female who presents with chest pain. Patient reports approximately 1600 this afternoon she had acute onset of "crushing" substernal chest pain radiating to her left shoulder and left arm. She said it feels like "elephant sitting on my chest". Pain is accompanied by shortness of breath, fatigue, diaphoresis when this started. She says she took 2 baby aspirin at home. EMS gave her sublingual nitroglycerin, the first one helped to relieve her chest pain a little bit. She now has a headache from the nitroglycerin. No other acute complaints. Review of Systems Review of Systems Constitutional: Fatigue, diaphoresis. Denies fever or chills Eyes: Denies change in visual acuity or eye pain HENT: Denies nasal congestion or sore throat Respiratory: Shortness of breath Cardiovascular: Substernal chest pain GI: Denies abdominal pain, nausea, vomiting, bloody stools or diarrhea : Denies dysuria or hematuria Musculoskeletal: Chest pain radiates to L shoulder, L arm Integument: Denies rash or skin lesions Neurologic: Headache (after nitro). Denies focal weakness or sensory changes Current Medications Current Medications Current Medications Medications (Trade) Dose Ordered Sig/Aretha Start Time Stop Time Status Last Admin Dose Admin Acetaminophen (Tylenol) 650 mg PRN Q6HRS PRN 09/03/16 19:45 Acetaminophen/ Hydrocodone Bitart (Lortab 5/325) 1 tab PRN Q6HRS PRN 09/03/16 19:45 09/03/16 21:06 1 TAB Alprazolam (Xanax) 1 mg PRN DAILY PRN 09/03/16 19:45 Aspirin (Children'S Aspirin) 81 mg DAILY 09/04/16 09:00 UNV Cetirizine HCl (Zyrtec) 10 mg DAILY 09/04/16 09:00 UNV Cyclobenzaprine HCl (Flexeril) 10 mg TID 09/03/16 21:00 UNV Ketorolac Tromethamine (Toradol) 30 mg DAILY PRN 09/03/16 19:45 09/08/16 19:44 UNV Levothyroxine Sodium (Synthroid) 125 mcg DAILY 09/04/16 09:00 UNV Lidocaine (Lidoderm) 1 patch DAILY 09/04/16 09:00 UNV Losartan Potassium (Cozaar) 50 mg HS 09/03/16 21:00 UNV Methocarbamol (Robaxin) 500 mg HS 09/03/16 21:00 UNV Morphine Sulfate 4 mg PRN Q2HR PRN 09/03/16 19:30 09/04/16 19:29 Niacin (Slo-Niacin) 500 mg HS 09/03/16 21:00 UNV Nitroglycerin (Nitrostat) 0.4 mg PRN Q5MIN PRN 09/03/16 19:30 09/04/16 19:29 Non-Formulary Medication 5 mg DAILY 09/04/16 09:00 UNV Ondansetron HCl (Zofran) 4 mg PRN Q6HRS PRN 09/03/16 19:45 Tramadol HCl (Ultram) 50 mg DAILY 09/04/16 09:00 UNV Trazodone HCl (Desyrel) 50 mg DAILY PRN 09/03/16 19:45 UNV Allergies Allergies Allergies Coded Allergies Type Severity Reaction Last Updated Verified Fenofibrate Nanocrystallized Allergy Intermediate migraines 09/30/14 Yes celecoxib Allergy Intermediate 09/30/14 Yes colesevelam Allergy Intermediate 09/30/14 Yes dimenhydrinate Allergy Intermediate 09/30/14 Yes duloxetine Allergy Intermediate 09/30/14 Yes metoclopramide Allergy Intermediate itching 09/30/14 Yes pantoprazole sodium Allergy Intermediate rash 09/30/14 Yes pregabalin Allergy Intermediate rash 09/30/14 Yes vilazodone hydrochloride Allergy Intermediate 09/30/14 Yes NSAIDS (Non-Steroidal Anti-Inflamma Adverse Reaction Intermediate ULCERS Yes Uyyjpkh-Phw-Jfr Reductase Inhibitor Adverse Reaction Intermediate INCREASED LIVER ENZYMES 09/30/14 Yes Physical Exam Physical Exam Constitutional: Well developed, well nourished, non-toxic appearance HENT: Normocephalic, atraumatic, bilateral external ears normal Eyes: EOMI, conjunctiva normal, no discharge Neck: Normal range of motion, no stridor Cardiovascular: Heart rate normal, regular rhythm, no murmur Lungs & Thorax: Bilateral breath sounds clear to auscultation Abdomen: Bowel sounds normal, soft, non-distended, no TTP Skin: Warm, dry, no erythema, no rash Extremities: No obvious deformity, no edema Neurologic: Alert and oriented X 3, no gross deficits noted Psychologic: Affect normal, judgement normal, mood normal Current Patient Data Vital Signs Vital Signs Date Time Temp Pulse Resp B/P Pulse Ox O2 Delivery O2 Flow Rate FiO2 09/03/16 21:06 18 93 Nasal Cannula 2.0 09/03/16 20:00 70 162/65 09/03/16 17:20 97.9 97.9 Lab Values Laboratory Tests Test 09/03/16 17:20 White Blood Count 6.5x10^3/uL (4.0-11.0) Red Blood Count 4.78x10^6/uL (3.50-5.40) Hemoglobin 12.8g/dL (12.0-15.5) Hematocrit 40.3% (36.0-47.0) Mean Corpuscular Volume 84fL (79-100) Mean Corpuscular Hemoglobin 27pg (25-35) Mean Corpuscular Hemoglobin Concent 32g/dL (31-37) Red Cell Distribution Width 12.7% (11.5-14.5) Platelet Count 228x10^3/uL (140-400) Neutrophils (%) (Auto) 69% (31-73) Lymphocytes (%) (Auto) 21% (24-48) L Monocytes (%) (Auto) 6% (0-9) Eosinophils (%) (Auto) 3% (0-3) Basophils (%) (Auto) 1% (0-3) Neutrophils # (Auto) 4.4x10^3uL (1.8-7.7) Lymphocytes # (Auto) 1.4x10^3/uL (1.0-4.8) Monocytes # (Auto) 0.4x10^3/uL (0.0-1.1) Eosinophils # (Auto) 0.2x10^3/uL (0.0-0.7) Basophils # (Auto) 0.1x10^3/uL (0.0-0.2) Prothrombin Time 13.1SEC (11.7-14.0) Prothrombin Time INR 1.1 (0.8-1.1) D-Dimer (Kanika) 0.37ug/mlFEU (0.00-0.50) Sodium Level 144mmol/L (136-145) Potassium Level 4.1mmol/L (3.5-5.1) Chloride Level 105mmol/L (98-107) Carbon Dioxide Level 31mmol/L (21-32) Anion Gap 8 (6-14) Blood Urea Nitrogen 11mg/dL (7-20) Creatinine 0.9mg/dL (0.6-1.0) Estimated GFR (Cockcroft-Gault) 64.5 Glucose Level 98mg/dL (70-99) Calcium Level 10.1mg/dL (8.5-10.1) Troponin I Quantitative < 0.017ng/mL (0.000-0.055) Laboratory Tests 09/03/16 17:20 Laboratory Tests 09/03/16 17:20 EKG EKG EKG (my read): sinus rhythm, rate 76, normal axis, no acute ST /T changes Radiology/Procedures Radiology/Procedures CXR (my read): No acute abnormality Course & Med Decision Making Course & Med Decision Making Pertinent Labs and Imaging studies reviewed. (See chart for details) Patient is 55-year-old female who presents with chest pain and shortness of breath. Story concerning for possibility of ACS. Will obtain EKG, CXR, labs to evaluate. Aspirin ordered to total 324 mg today. Dose of pain medication ordered for patient comfort. EKG and chest x-ray okay per my read. Troponin within normal limits at this time. However patient will need cardiac rule out given timeframe of symptoms. Discussed results with patient. Discussed with Dr. Price, will admit under her care for further evaluation and treatment. Dragon Disclaimer Dragon Disclaimer This electronic medical record was generated, in whole or in part, using a voice recognition dictation system. Departure Departure Impression: Primary Impression: Chest pain Additional Impression: SOB (shortness of breath) Disposition: 09 ADMITTED INPATIENT Admitting Physician: Dara Price Condition: GUARDED Referrals: RUTH PEREZ (PCP) Problem Qualifiers BRITTANY MONTOYA MD Sep 03, 2016 18:06
[2016-09-03] MEDS ORDERED: ASPIRIN 81 MG TAB.CHEW PO ONE (18:15)
[2016-09-03] MEDS ORDERED: MORPHINE SULFATE 2 MG/ML DISP.SYRIN. IV ONE (18:15)
[2016-09-03 18:18] LABS: BASO # 0.1 x10^3/uL (0.0-0.2); BASO % 1 % (0-3); EOS % 3 % (0-3); HEMATOCRIT 40.3 % (36.0-47.0); HEMOGLOBIN 12.8 g/dL (12.0-15.5); LYMPH # 1.4 x10^3/uL (1.0-4.8); LYMPH % 21 % (24-48); MEAN CORPUSCULAR HEMOGLOBIN 27 pg (25-35); MEAN CORPUSCULAR HGB CONC 32 g/dL (31-37); MEAN CORPUSCULAR VOLUME 84 fL (79-100); MONO % 6 % (0-9); NEUT % 69 % (31-73); PLATELET COUNT 228 x10^3/uL (140-400); RED BLOOD COUNT 4.78 x10^6/uL (3.50-5.40); RED CELL DISTRIBUTION WIDTH 12.7 % (11.5-14.5); WHITE BLOOD COUNT 6.5 x10^3/uL (4.0-11.0)
[2016-09-03 18:35] LABS: INR 1.1 (0.8-1.1); PROTHROMBIN TIME PATIENT 13.1 SEC (11.7-14.0)
[2016-09-03 18:37] LABS: CALCIUM 10.1 mg/dL (8.5-10.1); CREATININE 0.9 mg/dL (0.6-1.0); GFR 64.5; POTASSIUM 4.1 mmol/L (3.5-5.1)
[2016-09-03] MEDS ORDERED: MORPHINE SULFATE 4 MG/ML DISP.SYRIN. IV ONE (19:15)
[2016-09-03] MEDS ORDERED: NITROGLYCERIN SUBLINGUAL 0.4 MG BOTTLE OF 25. SL PRN (19:30)
[2016-09-03] MEDS ORDERED: ACETAMINOPHEN 325 MG TABLET. PO PRN ×2 (19:30→19:45)
[2016-09-03] MEDS ORDERED: MORPHINE SULFATE 4 MG/ML DISP.SYRIN. IV PRN (19:30)
[2016-09-03] MEDS ORDERED: ONDANSETRON PF 4 MG/2 ML VIAL. IV PRN ×2 (19:30→19:45)
--- NOTE | 2016-09-03 19:42 | PDOC1 ---
History and Physical Date of Admission Date of Admission 09/03/16 Identification/Chief Complaint Chief Complaint chest pain Problems: Source Source: Chart review, Patient History of Present Illness History of Present Illness HPI HPI Patient is a 55 year old female who presents with chest pain. pt was here 2 time last month for same chest pain, was dced home with costochondritis. Pt cont having pain, usually neeraj away with pain meds. Today 4pm, she was sitting, felt substernal chest pain, heavy/punching, radiating to left shoulder with left finger numbness, with nausea, sob , diaphoresis, the pain never goes away , now 7/10. She took 2 baby asa. EMS gave her sublingual nitroglycerin, the first one helped to relieve her chest pain a little bit. She now has a headache from the nitroglycerin. No other acute complaints. + chest wall tenderness. having GERD, but saying this pain is different. + family history of CAD Past Medical History Cardiovascular: HTN, Hyperlipidemia Pulmonary: Other CENTRAL NERVOUS SYSTEM: Migraine, TIA GI: Diverticulosis, Peptic Ulcer disease, Other Heme/Onc: Anemia NOS Hepatobiliary: Other Psych: Anxiety, Depression Endocrine: Hypothyroidism Past Surgical History Past Surgical History: Appendectomy, Cholecystectomy, , Total knee replacement, Hysterectomy Family History Family History: No Significant, Diabetes, Heart Disease Social History Smoke: No ALCOHOL: none Drugs: None Current Problem List Problem List Problems Medical Problems: (1) Chest pain Status: Acute (2) SOB (shortness of breath) Status: Acute Current Medications Current Medications Current Medications Medications (Trade) Dose Ordered Sig/Aretha Start Time Stop Time Status Last Admin Dose Admin Acetaminophen (Tylenol) 650 mg PRN Q4HRS PRN 09/03/16 19:30 09/04/16 19:29 Aspirin (Children'S Aspirin) 162 mg 1X ONCE 09/03/16 18:15 09/03/16 18:16 DC 09/03/16 18:29 162 MG Morphine Sulfate 4 mg PRN Q2HR PRN 09/03/16 19:30 09/04/16 19:29 Nitroglycerin (Nitrostat) 0.4 mg PRN Q5MIN PRN 09/03/16 19:30 09/04/16 19:29 Ondansetron HCl (Zofran) 4 mg PRN Q8HRS PRN 09/03/16 19:30 09/04/16 19:29 Allergies Allergies Allergies Coded Allergies Type Severity Reaction Last Updated Verified Fenofibrate Nanocrystallized Allergy Intermediate migraines 09/30/14 Yes celecoxib Allergy Intermediate 09/30/14 Yes colesevelam Allergy Intermediate 09/30/14 Yes dimenhydrinate Allergy Intermediate 09/30/14 Yes duloxetine Allergy Intermediate 09/30/14 Yes metoclopramide Allergy Intermediate itching 09/30/14 Yes pantoprazole sodium Allergy Intermediate rash 09/30/14 Yes pregabalin Allergy Intermediate rash 09/30/14 Yes vilazodone hydrochloride Allergy Intermediate 09/30/14 Yes NSAIDS (Non-Steroidal Anti-Inflamma Adverse Reaction Intermediate ULCERS Yes Qngkcgl-Lqc-Lsm Reductase Inhibitor Adverse Reaction Intermediate INCREASED LIVER ENZYMES 09/30/14 Yes ROS Review of System CONSTITUTIONAL: No fever or chills EYES: No recent changes SKIN: No rash or itching CARDIOVASCULAR: No chest pain, syncope, palpitations, or edema RESPIRATORY: No SOB or cough GASTROINTESTINAL: No nausea, vomiting or abdominal pain NEUROLOGICAL: No headaches or weakness ENDOCRINE: No cold or heat intolerance GENITOURINARY: No urgency or frequency of urination MUSCULOSKELETAL: No back pain or joint pain LYMPHATICS: No enlarged lymph nodes PSYCHIATRIC: No anxiety or depression Physical Exam Physical Exam GEN.: No apparent distress. Alert and oriented. HEENT: Head is normocephalic, atraumatic NECK: Supple. LUNGS: Clear to auscultation . severe middle chest wall tenderness. HEART: RRR, S1, S2 present. Peripheral pulses intact ABDOMEN: Soft, nontender. Positive bowel sounds. obese. EXTREMITIES: Without any cyanosis. NEUROLOGIC: Normal speech, normal tone PSYCHIATRIC: Normal affect, normal mood. SKIN: No ulcerations Vitals Vitals Vital Signs Date Time Temp Pulse Resp B/P Pulse Ox O2 Delivery O2 Flow Rate FiO2 09/03/16 18:31 20 95 Nasal Cannula 09/03/16 18:27 79 183/86 2 09/03/16 17:20 97.9 97.9 Labs Labs Laboratory Tests Test 09/03/16 17:20 White Blood Count 6.5x10^3/uL (4.0-11.0) Red Blood Count 4.78x10^6/uL (3.50-5.40) Hemoglobin 12.8g/dL (12.0-15.5) Hematocrit 40.3% (36.0-47.0) Mean Corpuscular Volume 84fL (79-100) Mean Corpuscular Hemoglobin 27pg (25-35) Mean Corpuscular Hemoglobin Concent 32g/dL (31-37) Red Cell Distribution Width 12.7% (11.5-14.5) Platelet Count 228x10^3/uL (140-400) Neutrophils (%) (Auto) 69% (31-73) Lymphocytes (%) (Auto) 21% (24-48) Monocytes (%) (Auto) 6% (0-9) Eosinophils (%) (Auto) 3% (0-3) Basophils (%) (Auto) 1% (0-3) Neutrophils # (Auto) 4.4x10^3uL (1.8-7.7) Lymphocytes # (Auto) 1.4x10^3/uL (1.0-4.8) Monocytes # (Auto) 0.4x10^3/uL (0.0-1.1) Eosinophils # (Auto) 0.2x10^3/uL (0.0-0.7) Basophils # (Auto) 0.1x10^3/uL (0.0-0.2) Prothrombin Time 13.1SEC (11.7-14.0) Prothromb Time International Ratio 1.1 (0.8-1.1) D-Dimer (Kanika) 0.37ug/mlFEU (0.00-0.50) Sodium Level 144mmol/L (136-145) Potassium Level 4.1mmol/L (3.5-5.1) Chloride Level 105mmol/L (98-107) Carbon Dioxide Level 31mmol/L (21-32) Anion Gap 8 (6-14) Blood Urea Nitrogen 11mg/dL (7-20) Creatinine 0.9mg/dL (0.6-1.0) Estimated GFR (Cockcroft-Gault) 64.5 Glucose Level 98mg/dL (70-99) Calcium Level 10.1mg/dL (8.5-10.1) Troponin I Quantitative < 0.017ng/mL (0.000-0.055) Laboratory Tests Test 09/03/16 17:20 White Blood Count 6.5x10^3/uL (4.0-11.0) Red Blood Count 4.78x10^6/uL (3.50-5.40) Hemoglobin 12.8g/dL (12.0-15.5) Hematocrit 40.3% (36.0-47.0) Mean Corpuscular Volume 84fL (79-100) Mean Corpuscular Hemoglobin 27pg (25-35) Mean Corpuscular Hemoglobin Concent 32g/dL (31-37) Red Cell Distribution Width 12.7% (11.5-14.5) Platelet Count 228x10^3/uL (140-400) Neutrophils (%) (Auto) 69% (31-73) Lymphocytes (%) (Auto) 21% (24-48) Monocytes (%) (Auto) 6% (0-9) Eosinophils (%) (Auto) 3% (0-3) Basophils (%) (Auto) 1% (0-3) Neutrophils # (Auto) 4.4x10^3uL (1.8-7.7) Lymphocytes # (Auto) 1.4x10^3/uL (1.0-4.8) Monocytes # (Auto) 0.4x10^3/uL (0.0-1.1) Eosinophils # (Auto) 0.2x10^3/uL (0.0-0.7) Basophils # (Auto) 0.1x10^3/uL (0.0-0.2) Prothrombin Time 13.1SEC (11.7-14.0) Prothromb Time International Ratio 1.1 (0.8-1.1) D-Dimer (Kanika) 0.37ug/mlFEU (0.00-0.50) Sodium Level 144mmol/L (136-145) Potassium Level 4.1mmol/L (3.5-5.1) Chloride Level 105mmol/L (98-107) Carbon Dioxide Level 31mmol/L (21-32) Anion Gap 8 (6-14) Blood Urea Nitrogen 11mg/dL (7-20) Creatinine 0.9mg/dL (0.6-1.0) Estimated GFR (Cockcroft-Gault) 64.5 Glucose Level 98mg/dL (70-99) Calcium Level 10.1mg/dL (8.5-10.1) Troponin I Quantitative < 0.017ng/mL (0.000-0.055) VTE Prophylaxis Ordered VTE Prophylaxis Devices: Yes VTE Pharmacological Prophylaxi: Yes Assessment/Plan Assessment/Plan 1. chest pain, recurrent, 2/2 costochondritis likely 2. morbid obesity 3. HTN urgency 4. HLD, but allergic to statin causing high LFT 5. DIVERticulosis 6. GERD 7. fatty liver dz 8. ELMER 9. ANXIETY 10. acute resp failure 2/2 obesity related hypoventilation PLAN: 1. card consult 2. echo done last month cycle CE lipid , tsh done last month 3. cont home meds hope to dc tmr if not intervention ISSAC BATRES MD Sep 03, 2016 19:42
[2016-09-03] MEDS ORDERED: KETOROLAC TROMETHAMINE 30 MG/ML SYRINGE. IV PRN (19:45)
[2016-09-03] MEDS ORDERED: traZODone 50 MG TABLET. PO PRN (19:45)
[2016-09-03] MEDS ORDERED: ALPRAZOLAM 1 MG TABLET PO PRN (19:45)
[2016-09-03] MEDS ORDERED: LOSARTAN POTASSIUM 50 MG TABLET. PO SCH (21:00)
[2016-09-03] MEDS ORDERED: METHOCARBAMOL 500 MG TABLET PO SCH (21:00)
[2016-09-03] MEDS ORDERED: NIACIN ER 500 MG TABLET.ER PO SCH (21:00)
[2016-09-03] MEDS: HYDROCODONE/APAP 5/325MG TABLET. PO PRN (21:06)
[2016-09-03] MEDS: CYCLOBENZAPRINE 10 MG TABLET. PO SCH (22:14)
[2016-09-03 23:00] VITALS: BP 129/66
--- NOTE | 2016-09-03 23:49 | ACF ---
Admission Forms Criteria CARDIOLOGY GRG Clinical Indications for Admission to Inpatient Care ( Place 'X' for any and all applicable criteria): Hospital admission is needed for appropriate care of the patient because of ANY ONE of the following (1): [ ] I. Hemodynamic instability as indicated by ALL of the following (1)(2)(3) (4)(5) [ ]a) Vital signs or other findings not as expected for chronic patient condition or baseline [ ]b) Instability indicated by ANY ONE of the following: [ ]i) Hypotension [ ]ii) Symptomatic Tachycardia unresponsive to treatment ( e.g., analgesia, fluids, sedation as indicated) [ ]iii) Inadequate perfusion indicated by ANY ONE of the following: [ ] 1) Lactic acidosis (> 2 mmol/L) [ ] 2) New abnormal capillary refill (> 3 seconds) [ ] 3) Reduced urine output [ ] 4) New altered mental status [ ]iv) Orthostatic vital sign changes unresponsive to treatment (e.g., fluids) [ ]v) IV inotropic or vasopressor medication required to maintain adequate blood pressure or perfusion [ ] II. Severe heart failure as indicated by ANY ONE of the following(17)(18) [ ]a) Respiratory distress [ ]b) Hypotension [ ]c) Anasarca (refractory to outpatient therapy) [ ]d) Cardiac arrhythmias of immediate concern [ ]e) Myocardial ischemia [ ] III. Cardiac arrhythmias or findings of immediate concern indicated by ANY ONE of the following (19)(20): [ ] a) Heart rhythms that are inherently dangerous or unstable indicated by ANY ONE of the following (21)(22)(23): [ ] i) Resuscitated ventricular fibrillation or cardiac arrest [ ] ii) Ventricular escape rhythm [ ] iii) Sustained ventricular tachycardia (30 seconds or more of ventricular rhythm at greater than 100 beats per minute) [ ] iv) Nonsustained ventricular tachycardia and ANY ONE of the following: [ ] 1) Suspected cardiac ischemia as cause or consequence of ventricular tachycardia [ ] 2) In setting of acute myocarditis [ ] b) Unstable cardiac conduction defects indicated by ANY ONE of the following(23)(24)(25) [ ] i) Type II second-degree atrioventricular block [ ]ii) Third-degree atrioventricular block [ ]iii) New-onset left bundle branch block with suspected myocardial ischemia [ ]c) Any heart rhythm and ANY ONE of the following (21)(22)(26)(27) (28) [ ] i) Continuous long-term ECG monitoring needed (e.g., initiation of drug requiring monitoring for more than 24 hours) [ ] ii) Patient has automatic implanted cardioverter defibrillator that is repeatedly firing, malfunctioning, or in need of immediate adjustment of settings beyond the scope of ambulatory or observation care [ ]d) Heart rhythms of concern due to ANY ONE of the following: [ ] i) Hypotension [ ] ii) Respiratory distress [ ] iii) Association with other significant symptoms (e.g., bradycardia with syncope or ongoing dizziness, supraventricular tachycardia with chest pain (14)(15)(17) [ ] IV. Monitoring for cardiac contusion beyond the scope of observation care needed [A](30)(31)(32) [ ] V. Surgical or device complication (e.g., valve replacement complication , pacemaker dysfunction) (35)(41)(44)(45)(46) [ ] . Inpatient palliative care needed. [B](49) Also use Inpatient Palliative Care Criteria [ ] VII. Nonbacterial thrombotic (marantic) endocarditis (36)(43)(47)(48) [X ] VIII. Cardiology condition, symptom, or finding for which emergency and observation care has failed or are not considered appropriate. [ ] IX. Acute valvular disease requiring inpatient as indicated by ANY ONE of the following (41) [ ]a) Acute valvular regurgitation (42) [ ]b) Noninfectious valvulitis (43) [ ]c) Obstructive valve thrombosis [ ]d) Paravalvular leak [ ]e) Other significant valvular disorder remaining after emergency or observation level of care (as appropriate) [ ]X. Pericardial disease requiring inpatient treatment as indicated by ANY ONE of the following (33)(34)(35)(36)(37) [ ]a) Suspected tamponade (38)(39)(40) [ ]b) Hemopericardium [ ]c) Other significant pericardial disorder remaining after emergency or observation level of care (as appropriate) [ ] XI. Cardiac ischemia beyond scope of emergency and observation care. [ ] XII. Hypertension requiring inpatient treatment as indicated by ANY ONE of the following (6)(7)(8) [ ]a) SBP greater than 220 mm Hg or DBP greater than 120 mmHg despite treatment [ ]b) SBP greater than 140 mm Hg or DBP greater than 100 mm Hg with evidence of acute end organ damage as indicated by ANY ONE of the following [ ] i) Encephalopathy [ ] ii) Acute renal failure as indicated by new onset of ANY ONE of the following (9)(10)(11)(12)(13) [ ]1) 3-fold rise in serum creatinine from baseline [ ]2) Serum creatinine greater than 4 mg/dL ( 354 micromoles/L) with acute rise greater than 0.5 mg/dL (44.2 micromoles/L) [ ]3) Reduction of more than 75% in estimated glomerular filtration rate from baseline [ ]4) Estimated glomerular filtration rate less than 35 mL/min/1.73m2 (0.59 mL/sec/1.73m2) in child up to 18 years of age [ ]5) Cessation of urine output indicated by ALL of the following [ ]A. Adequate volume status [ ]B. Inadequate urine output as indicated by ANY ONE of the following [ ]a. Urine output less than 0.3 mL/kg/hr for 24 hours [ ]b. Anuria (urine output less than 0.1 mL/kg/hr) for 12 hours [ ] iii) Aortic dissection [ ] iv) Myocardial Ischemia [ ] v) Left ventricular heart failure [ ]vi) Retinal Hemorrhage [ ]vii) Other significant finding [ ]c) Hypertension in child requiring inpatient treatment as indicated by ALL of the following(14)(15)(16) [ ] i) Outpatient treatment not effective, not available, or not appropriate [ ]ii) SBP or DBP greater than 95th percentile for age [ ]iii) Evidence of acute end organ damage as indicated by ANY ONE of the following [ ]1) Altered mental status [ ]2) Acute renal failure as indicated by new onset of ANY ONE of the following(9)(10)(11)(12)(13) [ ]A. 3-fold rise in serum creatinine from baseline [ ]B. Serum creatinine greater than 4 mg/dL (354 micromoles/L) with acute rise greater than 0.5 mg/dL (44.2 micromoles/L) [ ]C. Reduction of more than 75% in estimated glomerular filtration rate from baseline [ ]D. Estimated glomerular filtration rate less than 35 mL/min/1.73m2 (0.59 mL/sec/1.73m2) in child up to 18 years of age [ ]E. Cessation of urine output indicated by ALL of the following [ ]a. Adequate volume status [ ]b. Inadequate urine output as indicated by ANY ONE of the following [ ]i) Urine output less than 0.3 mL/kg/hr for 24 hours [ ]ii) Anuria ( urine output less than 0.1 mL/kg/hr) for 12 hours [ ]3) Severe headache [ ]4) Visual disturbance [ ]5) Retinal hemorrhage [ ]6) Other significant finding [ ]XIII. Complications of transplanted heart indicated by ANY ONE of the following(61): [ ]a) Acute graft rejection requiring inpatient management (eg, intravenous immunosuppression)(62)(63) [ ]b) Acute graft heart failure indicated by ANY ONE of the following(64): [ ]i) Hemodynamic instability [ ]ii) Cardiac arrhythmias of immediate concern [ ]iii) Pulmonary edema that is very severe (eg, mechanical ventilation needed, imminent or likely, need for 100% oxygen to keep oxygen saturation above 90%) [ ]iv) Pulmonary edema that is persistent as indicated by ALL of the following: [ ]1) New need for oxygen therapy to keep oxygen saturation above 90% (or increased FiO2 need from baseline) [ ]2) Has not improved sufficiently with emergency department or observation care IV diuretics or other heart failure treatments[E] [ ]v) Altered mental status that is severe or persistent [ ]vi) Increased creatinine (new on laboratory test) with reduction of more than 50% in estimated glomerular filtration rate from baseline [ ]vii) Progressively (ongoing) rising creatinine (known from past laboratory test) with reduction of more than 25% in estimated glomerular filtration rate from baseline [ ]viii) Acute renal failure [ ]ix) Acute peripheral ischemia (eg, examination shows pulseless, cool, mottled, or cyanotic extremity) [ ]x) Pulmonary artery catheter monitoring needed [ ]xi) Other sign or symptom of heart failure requiring inpatient treatment (ie, too severe or not responsive to outpatient and observation care treatment) [ ]c) Infection requiring inpatient management (eg, Hemodynamic instability, need for intravenous antimicrobial treatment)(66)(67)(68)(69)(70) [ ]d) Cardiac allograft vasculopathy requiring inpatient management ( eg evidence of cardiac ischemia)(71) [ ]e) Other complication of transplanted heart (eg, stroke, severe pulmonary hypertension, severe valvular dysfunction) requiring inpatient management(72) The original [facility] content created by [facility] has been revised. The portions of the content which have been revised are identified through the use of italic text or in bold, and [facility] has neither reviewed nor approved the modified material. All other unmodified content is copyright [facility]. Please see references footnoted in the original [facility] edition 2016 Admission Criteria Met?: Yes ABIMBOLA HAMILTON Sep 03, 2016 23:49
[2016-09-04 03:00] VITALS: BP 115/56
[2016-09-04] MEDS: HYDROCODONE/APAP 5/325MG TABLET. PO PRN ×2 (06:21→17:37)
[2016-09-04] MEDS ORDERED: LEVOTHYROXINE 125 MCG TABLET PO SCH (07:00)
[2016-09-04 07:21] LABS: BASO % 1 % (0-3); EOS % 3 % (0-3); HEMATOCRIT 36.8 % (36.0-47.0); HEMOGLOBIN 11.8 g/dL (12.0-15.5); LYMPH # 1.2 x10^3/uL (1.0-4.8); LYMPH % 32 % (24-48); MEAN CORPUSCULAR HEMOGLOBIN 27 pg (25-35); MEAN CORPUSCULAR HGB CONC 32 g/dL (31-37); MEAN CORPUSCULAR VOLUME 85 fL (79-100); MONO % 7 % (0-9); NEUT % 56 % (31-73); PLATELET COUNT 189 x10^3/uL (140-400); RED BLOOD COUNT 4.33 x10^6/uL (3.50-5.40); RED CELL DISTRIBUTION WIDTH 12.9 % (11.5-14.5); WHITE BLOOD COUNT 3.8 x10^3/uL (4.0-11.0)
[2016-09-04 07:31] LABS: CALCIUM 9.4 mg/dL (8.5-10.1); GFR 57.1; POTASSIUM 4.2 mmol/L (3.5-5.1)
[2016-09-04 08:10] VITALS: BP 120/46
[2016-09-04] MEDS: CYCLOBENZAPRINE 10 MG TABLET. PO SCH ×2 (08:57→13:30)
[2016-09-04] MEDS ORDERED: CETIRIZINE HCL 10 MG TABLET PO SCH (09:00)
[2016-09-04] MEDS ORDERED: LIDOCAINE (700MG/PATCH) PATCH. TP SCH (09:00)
[2016-09-04] MEDS ORDERED: TRAMADOL 50 MG TABLET. PO SCH (09:00)
[2016-09-04] MEDS ORDERED: FLUOXETINE HCL 20 MG CAPSULE PO SCH (09:00)
[2016-09-04] MEDS ORDERED: ASPIRIN 81 MG TAB.CHEW PO SCH (09:00)
[2016-09-04] MEDS ORDERED: NON FORMULARY ITEM (Melatonin 5 MG) PO SCH (09:00)
[2016-09-04] MEDS ORDERED: FLUTICASONE 50MCG/NASAL SPRAY 16GM BOTTLE. NS SCH (09:00)
--- NOTE | 2016-09-04 09:02 | RAD ---
Indication chest pain. Shortness of breath. A single view of the chest was obtained. Comparison is made to an exam just over one month earlier. Heart size is slightly enlarged but unchanged. Pulmonary vasculature is similar. A focal infiltrate is not seen. Significant pleural fluid is not present. A significant change in the chest compared to the prior study is not seen. IMPRESSION: No acute or focal process. No significant change.
--- NOTE | 2016-09-04 09:12 | PDOC2 ---
CARDIAC CONSULT DATE OF CONSULT Date of Consult DATE: 09/04/16 TIME: 09:04 REASON FOR CONSULT Reason for Consult: chest pain REFERRING PHYSICIAN Referring Physician: Dr. Gonzales SOURCE Source: Chart review, Patient HISTORY OF PRESENT ILLNESS HISTORY OF PRESENT ILLNESS This is a 55 yo female who presented with complaints of chest pain. Patient reports pain began around 4pm yesterday afternoon while she was sitting in chair watching television. Located in central chest and radiated to left chest and to left shoulder. Describes as constant crushing pain. Presently rates 5/10 in intensity. Associated with shortness of breath and left hand tingling. Denies any palpitations, dizziness, diaphoresis, or nausea/vomiting. No recent illness/fevers. Pain worsened by pressing on chest and improved with deep breath and with morphine/Lortab. No relieved by ASA/nitro. Recent admission for similar-type pain. Echo conducted and WNL. Pain thought to be MSK in origin and was discharged home. Patient reports she was not given pain medication upon discharge and was not able to get them from PCP. Reports having normal cardiac cath, here at [facility], 6-7 years ago. Patient additionally reports h/o GERD and gastric ulcer. Is to be taking omeprazole scheduled daily but only take it " when I have problems'. Otherwise, compliant with medications. PAST MEDICAL HISTORY Cardiovascular: HTN, Hyperlipidemia Pulmonary: No pertinent hx, Other (ELMER with CPAP) CENTRAL NERVOUS SYSTEM: Migraine, TIA GI: Diverticulosis, GERD Heme/Onc: No pertinent hx Hepatobiliary: No pertinent hx Psych: Anxiety, Depression Musculoskeletal: Osteoarthritis Rheumatologic: Fibromyalgia Infectious disease: No pertinent hx ENT: No pertinent hx Renal/: No pertinent hx Endocrine: Hypothyroidism Dermatology: No pertinent hx PAST SURGICAL HISTORY Past Surgical History: Appendectomy, Cholecystectomy, Tonsillectomy, Hysterectomy FAMILY HISTORY Family History: Coronary Artery Disease, Hypertension SOCIAL HISTORY Smoke: No ALCOHOL: none Drugs: None Lives: with Family CURRENT MEDICATIONS CURRENT MEDICATIONS Current Medications Medications (Trade) Dose Ordered Sig/Aretha Route PRN Reason Start Time Stop Time Status Last Admin Dose Admin Aspirin (Children'S Aspirin) 162 mg 1X ONCE PO 09/03/16 18:15 09/03/16 18:16 DC 09/03/16 18:29 Morphine Sulfate 4 mg 1X ONCE IV 09/03/16 18:15 09/03/16 18:16 DC 09/03/16 18:31 Morphine Sulfate 4 mg 1X ONCE IV 09/03/16 19:15 09/03/16 19:16 DC 09/03/16 19:49 Morphine Sulfate 4 mg PRN Q2HR PRN IV PAIN 09/03/16 19:30 09/04/16 19:29 09/04/16 01:07 Alprazolam (Xanax) 1 mg PRN DAILY PRN PO ANXIETY 09/03/16 19:45 09/03/16 22:14 Aspirin (Children'S Aspirin) 81 mg DAILY PO 09/04/16 09:00 09/04/16 08:57 Cetirizine HCl (Zyrtec) 10 mg DAILY PO 09/04/16 09:00 09/04/16 08:57 Cyclobenzaprine HCl (Flexeril) 10 mg TID PO 09/03/16 21:00 09/04/16 08:57 Acetaminophen/ Hydrocodone Bitart (Lortab 5/325) 1 tab PRN Q6HRS PRN PO PAIN 09/03/16 19:45 09/04/16 06:21 Levothyroxine Sodium (Synthroid) 125 mcg DAILY07 PO 09/04/16 07:00 09/04/16 06:20 Lidocaine (Lidoderm) 1 patch DAILY TP 09/04/16 09:00 09/04/16 08:58 Losartan Potassium (Cozaar) 50 mg HS PO 09/03/16 21:00 09/03/16 22:14 Methocarbamol (Robaxin) 500 mg HS PO 09/03/16 21:00 09/03/16 21:00 Niacin (Slo-Niacin) 500 mg HS PO 09/03/16 21:00 09/03/16 22:13 Tramadol HCl (Ultram) 50 mg DAILY PO 09/04/16 09:00 09/04/16 08:57 Fluoxetine HCl (Prozac) 40 mg DAILY PO 09/04/16 09:00 09/04/16 08:57 ALLERGIES ALLERGIES: Coded Allergies: Fenofibrate Nanocrystallized (Verified Allergy, Intermediate, migraines, ) celecoxib (Verified Allergy, Intermediate, 09/30/14) colesevelam (Verified Allergy, Intermediate, 09/30/14) dimenhydrinate (Verified Allergy, Intermediate, 09/30/14) duloxetine (Verified Allergy, Intermediate, 09/30/14) metoclopramide (Verified Allergy, Intermediate, itching, 09/30/14) pantoprazole sodium (Verified Allergy, Intermediate, rash, 09/30/14) pregabalin (Verified Allergy, Intermediate, rash, 09/30/14) vilazodone hydrochloride (Verified Allergy, Intermediate, 09/30/14) NSAIDS (Non-Steroidal Anti-Inflamma (Verified Adverse Reaction, Intermediate, ULCERS, 09/30/14) Kblofsv-Cuw-Flk Reductase Inhibitor (Verified Adverse Reaction, Intermediate, INCREASED LIVER ENZYMES, 09/30/14) ROS Review of System 14 point ROS conducted with pertinent positives noted above in HPI PHYSICAL EXAM General: Alert, Oriented X3, Cooperative, No acute distress HEENT: Atraumatic, Mucous membr. moist/pink Lungs: Clear to auscultation, Normal air movement, Other (central chest severly tender with mild palpation) Heart: Regular rate, Normal S1, Normal S2, No murmurs Abdomen: Normal bowel sounds, Soft, No tenderness, Other (obese ) Extremities: No edema, Normal pulses Skin: No breakdown, No significant lesion Neuro: Normal speech, Sensation intact Psych/Mental Status: Mental status NL, Mood NL MUSCULOSKELETAL: Osteoarthritic changes both hands VITALS VITALS Vital Signs Date Time Temp Pulse Resp B/P Pulse Ox O2 Delivery O2 Flow Rate FiO2 09/04/16 08:57 94 Nasal Cannula 2.0 09/04/16 08:10 96.3 64 18 120/46 96.3 LABS Lab: Laboratory Tests Test 09/03/16 17:20 09/04/16 01:30 09/04/16 07:10 White Blood Count 6.5x10^3/uL (4.0-11.0) 3.8x10^3/uL (4.0-11.0) Red Blood Count 4.78x10^6/uL (3.50-5.40) 4.33x10^6/uL (3.50-5.40) Hemoglobin 12.8g/dL (12.0-15.5) 11.8g/dL (12.0-15.5) Hematocrit 40.3% (36.0-47.0) 36.8% (36.0-47.0) Mean Corpuscular Volume 84fL (79-100) 85fL (79-100) Mean Corpuscular Hemoglobin 27pg (25-35) 27pg (25-35) Mean Corpuscular Hemoglobin Concent 32g/dL (31-37) 32g/dL (31-37) Red Cell Distribution Width 12.7% (11.5-14.5) 12.9% (11.5-14.5) Platelet Count 228x10^3/uL (140-400) 189x10^3/uL (140-400) Neutrophils (%) (Auto) 69% (31-73) 56% (31-73) Lymphocytes (%) (Auto) 21% (24-48) 32% (24-48) Monocytes (%) (Auto) 6% (0-9) 7% (0-9) Eosinophils (%) (Auto) 3% (0-3) 3% (0-3) Basophils (%) (Auto) 1% (0-3) 1% (0-3) Neutrophils # (Auto) 4.4x10^3uL (1.8-7.7) 2.1x10^3uL (1.8-7.7) Lymphocytes # (Auto) 1.4x10^3/uL (1.0-4.8) 1.2x10^3/uL (1.0-4.8) Monocytes # (Auto) 0.4x10^3/uL (0.0-1.1) 0.3x10^3/uL (0.0-1.1) Eosinophils # (Auto) 0.2x10^3/uL (0.0-0.7) 0.1x10^3/uL (0.0-0.7) Basophils # (Auto) 0.1x10^3/uL (0.0-0.2) 0.0x10^3/uL (0.0-0.2) Prothrombin Time 13.1SEC (11.7-14.0) Prothromb Time International Ratio 1.1 (0.8-1.1) D-Dimer (Kanika) 0.37ug/mlFEU (0.00-0.50) Sodium Level 144mmol/L (136-145) 142mmol/L (136-145) Potassium Level 4.1mmol/L (3.5-5.1) 4.2mmol/L (3.5-5.1) Chloride Level 105mmol/L (98-107) 104mmol/L (98-107) Carbon Dioxide Level 31mmol/L (21-32) 31mmol/L (21-32) Anion Gap 8 (6-14) 7 (6-14) Blood Urea Nitrogen 11mg/dL (7-20) 12mg/dL (7-20) Creatinine 0.9mg/dL (0.6-1.0) 1.0mg/dL (0.6-1.0) Estimated GFR (Cockcroft-Gault) 64.5 57.1 Glucose Level 98mg/dL (70-99) 105mg/dL (70-99) Calcium Level 10.1mg/dL (8.5-10.1) 9.4mg/dL (8.5-10.1) Troponin I Quantitative < 0.017ng/mL (0.000-0.055) < 0.017ng/mL (0.000-0.055) < 0.017ng/mL (0.000-0.055) ECHOCARDIOGRAM ECHOCARDIOGRAM <Conclusion> The left ventricle is normal size. The left ventricular systolic function is normal and the ejection fraction is within normal range. The Ejection Fraction is 55-60%. There is no significant aortic valvular stenosis. Doppler and Color Flow revealed no significant aortic regurgitation. Doppler and Color Flow revealed trace mitral valve regurgitation. Doppler and Color Flow revealed no tricuspid valve regurgitation noted. There is no evidence of significant pericardial effusion. DATE: 07/20/16 1253 ASSESSMENT/PLAN ASSESSMENT/PLAN 1. Chest Pain troponin series normal, AMI ruled out recent echo with normal LVEF, no evidence of WMA suspect pain is MSK in origin at it is clearly reproducible/exacerbated with palpation to central chest with risk factors, could consider outpatient MPI. 2. Accelerated HTN now controlled. continue with current therapy 3. HLP LDL 131 intolerant to statins continue fish oil and niacin 4. GERD not compliant with omeprazole 5. Fibromyalgia Problems: MICHELLE STRONG APRN Sep 04, 2016 09:12
[2016-09-04 10:37] VITALS: BP 120/65
[2016-09-04] MEDS ORDERED: HYDR-971 PO (11:08)
--- NOTE | 2016-09-04 11:38 | EKG ---
[facility] [address] [place] [address] Test Date: 2016-09-03 Test Time: 17:17:44 Pat Name: LULU WEINBERG Department: Room: Gender: F Key Attendant: : 1960 Requested By: BRITTANY MONTOYA Order Number: [id number] Reading MD: Measurements Intervals [place] Rate: 76 P: 30 LA: 140 QRS: 9 QRSD: 82 T: 13 QT: 404 QTc: 454 Interpretive Statements SINUS RHYTHM NORMAL ECG RI6.01 Unconfirmed report No previous ECG available for comparison
[2016-09-04 15:42] VITALS: BP 112/60
--- NOTE | 2016-09-06 02:56 | DS ---
DATE OF DISCHARGE: 09/04/2016 CHIEF COMPLAINT: Chest pain. HOSPITAL COURSE: The patient is a morbidly obese, 55-year-old woman, who presented with chest pain for the third time over the past 6 weeks. She once again had same pain which previously had been diagnosed as costochondritis and responses to narcotics. To recurrent hospitalization, she was once again ruled out for acute coronary syndrome. She was seen by Cardiology, but further workup was deemed unnecessary as she had a recent complete workup. She was therefore discharged with a presumptive diagnosis of costochondritis and given a prescription for [place]. She was advised to follow up with GI as well. PHYSICAL EXAMINATION: VITAL SIGNS: From today show a blood pressure of 120/65, heart rate of 67, respiratory rate 20. She is afebrile. GENERAL: This is a massively obese 55-year-old woman, alert and oriented, no acute distress. LUNGS: Clear. HEART: Regular rate and rhythm. ABDOMEN: Has positive bowel sounds, soft, nontender. EXTREMITIES: Show no edema. DISCHARGE DIAGNOSES: Chest wall pain and costochondritis. DISCHARGE CONDITION: Improved. DISCHARGE DISPOSITION: To home. DISCHARGE MEDICATIONS: Please refer to MAR. DISCHARGE INSTRUCTIONS: The patient will follow up with primary care physician in 1-2 weeks. MARLENI OLIVIER MD DR: UR/nts JOB#: [id number] / [id number] RUTH White MD MTDD
== END 2016-09-04 19:00 | disposition home or self-care (01) | DRG 205 ==
LOC: ER 17:07 → 5 NORTH 21:10
PROVIDERS: ADMIT Internal Medicine; ATTEND Internal Medicine
DX: M94.0 Chondrocostal junction syndrome [Tietze] (principal); J96.00 Acute respiratory failure, unspecified whether with hypoxia or hypercapnia; E66.2 Morbid (severe) obesity with alveolar hypoventilation; Z68.43 Body mass index [BMI] 50.0-59.9, adult; K57.90 Diverticulosis of intestine, part unspecified, without perforation or abscess without bleeding; I10 Essential (primary) hypertension; E78.00 Pure hypercholesterolemia, unspecified; E03.9 Hypothyroidism, unspecified; G43.909 Migraine, unspecified, not intractable, without status migrainosus; Z86.73 Personal history of transient ischemic attack (TIA), and cerebral infarction without residual deficits; R07.2 Precordial pain; E78.5 Hyperlipidemia, unspecified; F41.9 Anxiety disorder, unspecified; I16.0 Hypertensive urgency; K21.9 Gastro-esophageal reflux disease without esophagitis; M79.7 Fibromyalgia; Z96.659 Presence of unspecified artificial knee joint; Z82.49 Family history of ischemic heart disease and other diseases of the circulatory system; Z83.3 Family history of diabetes mellitus; Z87.11 Personal history of peptic ulcer disease; Z90.49 Acquired absence of other specified parts of digestive tract; Z90.710 Acquired absence of both cervix and uterus; Z88.6 Allergy status to analgesic agent; Z88.8 Allergy status to other drugs, medicaments and biological substances
CPT/HCPCS: 36415; 71010; 80048; 84484; 85027; 85379; 85610; 93005; 96374; 96376; J1885; J2270; 99285-25

== ENCOUNTER 2016-10-18 00:23 | Inpatient (IN) | payer BC, MEDICARE ==
[~2016-10-18] VITALS: Ht 170.2 cm; Wt 153.9 kg
--- NOTE | 2016-10-18 00:52 | ACF ---
Admission Forms Criteria ABDOMINAL PAIN Clinical Indications for Admission to Inpatient Care (Place 'X' for any and all applicable criteria): Admission is indicated for ANY ONE of the following(1)(2)(3)(4)(5): [ ]I. Inpatient admission required rather than observation care (Also use Abdominal Pain: Observation Care, as appropriate) because of ANY ONE of the following: [ ]a) Severe pain requiring acute inpatient management [ ]b) Identification of etiology/finding that requires inpatient care (eg, aortic dissection, free air) [ ]c) Absent bowel sounds with complete ileus(6) [ ]d) Suspected toxic megacolon [ ]e) Severe electrolyte abnormalities requiring inpatient care [ ]f) High fever or infection requiring inpatient admission as indicated by ANY ONE of following(7)(8): [ ] i) Appropriate outpatient or observational care antimicrobial treatment unavailable, not effective, or not feasible [ ] ii) Documented bacteremia [ ] iii) Temperature > 104.9 degrees F (oral) [ ] iv) T >103.1 F (oral) or < 96.8 F(rectal) that does not respond to all emergency treatment measures [ ]g) Signs of intestinal obstruction [B] [ ]h) Hemodynamic instability [ ]i) IV fluid to replace significant ongoing losses (greater than 3 L/m2 per day) (12)(13) [ ]j) Percutaneous or open drainage (eg, abscess, biliary tract ) procedures [ ]k) Parenteral nutrition regimen that must be implemented on inpatient basis [ ]l) Other condition,treatment or monitoring requiring inpatient admission. [ ]II. Peritoneal signs present [ ]III. Surgery needed that cannot be performed on an ambulatory basis. [ ]IV. Evaluation requires patient to not eat or drink for extended period ( eg, more than 24 hours). [ ]V. Contraindications and/or Inappropriate clinical situations for Observational Care in patients with abdominal pain, when ANY ONE of the following is required: [ ]a) Thorough evaluation is required to prevent catastrophic events due to delays in diagnosing (e.g.Mesenteric ischemia) 1,3 [ ]b) Patient with severe pathology or with chronic symptoms unlikely to improve in the ED stay (3) [ ]. General contraindications and/or Inappropriate clinical situations for Observational Care in patients with abdominal pain, when ANY ONE of the following is required: [ ]a) Prediction of prolongation of LOS based on ANY ONE of the following may be considered as a contraindication for observational care 2, 3, 4, 5, 6, 7, 8, 9, 10, 11 [ ]i) Age > 65 yrs. [ ]ii) Patient arriving by ambulance [ ]iii) Patient with high acuity [ ]iv) Patient requiring vital sign monitoring [ ]v) Patient on IV medication [ ]b) Systolic blood pressures 180mmHg 3,12 [ ]c) Patient with altered mental status including delirium and other alteration of consciousness, (3) [ ]d) Patient whose discharge disposition will be to a alf home or rehabilitation home should not be managed in Emergency Department Observation Unit. CMS rule requires 3 days hospital stay before such placement.3,13 [ ]e) Patient with failure to thrive due to broad array of etiologies 3,16,17 [ ]f) Inability to ambulate 3,14 Extended stay beyond goal length of stay may be needed for(2)(3): [ ]a) Persistent abdominal pain with suspected intra-abdominal process [ ]b) Diagnosed condition requiring continued stay (e.g., pancreatitis, complicated diverticulitis) [ ]c) Surgery (e.g., colectomy) The original [employer] content created by [employer] has been revised. The portions of the content which have been revised are identified through the use of italic text or in bold, and [facility] has neither reviewed nor approved the modified material.All other unmodified content is copyright [employer]. Please see references footnoted in the original [employer] edition 2016 MIKEY BUCK Oct 18, 2016 00:52
[2016-10-18] MEDS ORDERED: ONDANSETRON PF 4 MG/2 ML VIAL. IV ONE (01:00)
[2016-10-18] MEDS ORDERED: FENTANYL PF 100 MCG/2 ML VIAL. IV ONE (01:00)
[2016-10-18] MEDS ORDERED: IV NORMAL SALINE 500ML BAG 500 ML IV ONE (01:00)
[2016-10-18 01:20] LABS: BASO % 1 % (0-3); EOS % 3 % (0-3); HEMATOCRIT 38.4 % (36.0-47.0); HEMOGLOBIN 12.4 g/dL (12.0-15.5); LYMPH # 1.7 x10^3/uL (1.0-4.8); LYMPH % 27 % (24-48); MEAN CORPUSCULAR HEMOGLOBIN 27 pg (25-35); MEAN CORPUSCULAR HGB CONC 32 g/dL (31-37); MEAN CORPUSCULAR VOLUME 84 fL (79-100); MONO % 5 % (0-9); NEUT % 64 % (31-73); PLATELET COUNT 208 x10^3/uL (140-400); RED BLOOD COUNT 4.57 x10^6/uL (3.50-5.40); RED CELL DISTRIBUTION WIDTH 13.3 % (11.5-14.5); WHITE BLOOD COUNT 6.4 x10^3/uL (4.0-11.0)
[2016-10-18 01:32] LABS: CALCIUM 9.5 mg/dL (8.5-10.1); CREATININE 0.9 mg/dL (0.6-1.0); GFR 64.5
[2016-10-18] MEDS ORDERED: IOHEXOL 300 MG/ML 75 ML VIAL IV ONE (02:00)
[2016-10-18] MEDS ORDERED: HYDROMORPHONE 2 MG/ML VIAL. IV ONE (03:00)
--- NOTE | 2016-10-18 03:07 | RAD ---
PROCEDURE CT abdomen pelvis with contrast HISTORY Left lower quadrant pain TECHNIQUE After IV infusion of95 cc of Optiray-320, helical CT scanning of the abdomen and pelvis was performed.GI contrast was not administered. COMPARISON FINDINGS The liveer is homogeous in appearance and normal in size. The spleen is unremarkable and normal in size. The pancreas is homogeneous in appearance and no focal enlargement is seen. The gallbladder has been removed. No focal aneurysmal dilatation of the abdominal aorta is seen. No enlarged abdominal or pelvic lymphadenopathy is seen. No soft tissue mass is seen. No obstructive bowel pattern or bowel wall thickening or inflammatory change is seen. No free intraperitoneal fluid or abscess or free intraperitoneal air is seen. The lung bases are clear. Both kidneys are functioning and no hydronephrosis or renal mass or perinephric fluid collection is seen. The urinary bladder wall is smooth. No adrenal masses are seen. No osteolytic process is seen. The appendix is not seen. There is moderate sigmoid diverticulosis without surrounding inflammation. IMPRESSION Sigmoid diverticulosis without surrounding inflammation to suggest active diverticulitis. No acute findings. Electronically signed by: Maverick Domingo MD (Oct 18, 2016 03:06:16)
[2016-10-18] MEDS ORDERED: ONDANSETRON PF 4 MG/2 ML VIAL. IV PRN (03:15)
[2016-10-18] MEDS: CIPROFLOXACIN 200MG PREMIX 100 ML IV SCH ×2 (03:45→03:46)
[2016-10-18] MEDS ORDERED: METRONIDAZOLE 500mg PREMIX 100 ML IV ONE (03:45)
--- NOTE | 2016-10-18 04:58 | PHYS DOC ---
Past Medical History Past Medical History: Diverticulitis, Diverticulosis, High Cholesterol, Hypertension, Hypothyroid, Migraines, Stroke Additional Past Medical Histor: FATTY LIVER DISEASE, CVA, ULCERS Past Surgical History: Appendectomy, Cholecystectomy, , Hysterectomy, Knee Replacement Alcohol Use: None Drug Use: None Adult General Chief Complaint Chief Complaint: GI PROBLEM HPI HPI This is a 55-year-old female who is presenting with severe pain that she localizes to her left lower quadrant that she states feels similar to previous pain that she's had when she's had diverticulitis. She denies any nausea or vomiting. She states her stools have been loose but no blood. She denies any fever or chills. She states her last colonoscopy was several years ago and she was told she has multiple diverticula. She currently rates her pain an 8 out of 10 localized to left lower quadrant. Review of Systems Review of Systems Constitutional: Denies fever or chills [] Eyes: Denies change in visual acuity, redness, or eye pain [] HENT: Denies nasal congestion or sore throat [] Respiratory: Denies cough or shortness of breath [] Cardiovascular: No additional information not addressed in HPI [] GI: Has abdominal pain, denies nausea, denies vomiting, denies bloody stools or diarrhea [] : Denies dysuria or hematuria [] Musculoskeletal: Denies back pain or joint pain [] Integument: Denies rash or skin lesions [] Neurologic: Denies headache, focal weakness or sensory changes [] Endocrine: Denies polyuria or polydipsia [] Current Medications Current Medications Current Medications Medications (Trade) Dose Ordered Sig/[facility] Start Time Stop Time Status Last Admin Dose Admin Fentanyl Citrate (Fentanyl 2ml Vial) 50 mcg 1X ONCE 10/18/16 01:00 10/18/16 01:01 DC 10/18/16 01:11 50 MCG Iohexol (Omnipaque 300 Mg/ml) 75 ml 1X ONCE 10/18/16 02:00 10/18/16 02:01 DC 10/18/16 02:18 75 ML Ondansetron HCl 4 mg 4 mg 1X ONCE 10/18/16 01:00 10/18/16 01:01 DC 10/18/16 01:11 4 MG Sodium Chloride (Iv Sodium Chloride 0.9% 500ml Bag) 500 ml @ 500 mls/hr 1X ONCE 10/18/16 01:00 10/18/16 01:59 DC 10/18/16 01:12 500 MLS/HR Allergies Allergies Allergies Coded Allergies Type Severity Reaction Last Updated Verified Fenofibrate Nanocrystallized Allergy Intermediate migraines 09/30/14 Yes celecoxib Allergy Intermediate 09/30/14 Yes colesevelam Allergy Intermediate 09/30/14 Yes dimenhydrinate Allergy Intermediate 09/30/14 Yes duloxetine Allergy Intermediate 09/30/14 Yes metoclopramide Allergy Intermediate itching 09/30/14 Yes pantoprazole sodium Allergy Intermediate rash 09/30/14 Yes pregabalin Allergy Intermediate rash 09/30/14 Yes vilazodone hydrochloride Allergy Intermediate 09/30/14 Yes NSAIDS (Non-Steroidal Anti-Inflamma Adverse Reaction Intermediate ULCERS Yes Lchjkny-Mxc-Xiq Reductase Inhibitor Adverse Reaction Intermediate INCREASED LIVER ENZYMES 09/30/14 Yes Physical Exam Physical Exam Constitutional: Well developed, well nourished, no acute distress, non-toxic appearance. [] HENT: Normocephalic, atraumatic, bilateral external ears normal, oropharynx moist, no oral exudates, nose normal. [] Eyes: PERRLA, EOMI, conjunctiva normal, no discharge. [] Neck: Normal range of motion, no tenderness, supple, no stridor. [] Cardiovascular:Heart rate regular rhythm, no murmur [] Lungs & Thorax: Bilateral breath sounds clear to auscultation [] Abdomen: Bowel sounds normal, soft, moderate LLQ tenderness, no masses, no pulsatile masses. [] Skin: Warm, dry, no erythema, no rash. [] Back: No tenderness, no CVA tenderness. [] Extremities: No tenderness, no cyanosis, no clubbing, ROM intact, no edema. [] Neurologic: Alert and oriented X 3, normal motor function, normal sensory function, no focal deficits noted. [] Psychologic: Affect normal, judgement normal, mood normal. [] Current Patient Data Vital Signs Vital Signs Date Time Temp Pulse Resp B/P Pulse Ox O2 Delivery O2 Flow Rate FiO2 10/18/16 02:00 72 15 94 Room Air 10/18/16 00:43 97.9 125/70 97.9 Lab Values Laboratory Tests Test 10/18/16 01:09 White Blood Count 6.4x10^3/uL (4.0-11.0) Red Blood Count 4.57x10^6/uL (3.50-5.40) Hemoglobin 12.4g/dL (12.0-15.5) Hematocrit 38.4% (36.0-47.0) Mean Corpuscular Volume 84fL (79-100) Mean Corpuscular Hemoglobin 27pg (25-35) Mean Corpuscular Hemoglobin Concent 32g/dL (31-37) Red Cell Distribution Width 13.3% (11.5-14.5) Platelet Count 208x10^3/uL (140-400) Neutrophils (%) (Auto) 64% (31-73) Lymphocytes (%) (Auto) 27% (24-48) Monocytes (%) (Auto) 5% (0-9) Eosinophils (%) (Auto) 3% (0-3) Basophils (%) (Auto) 1% (0-3) Neutrophils # (Auto) 4.1x10^3uL (1.8-7.7) Lymphocytes # (Auto) 1.7x10^3/uL (1.0-4.8) Monocytes # (Auto) 0.3x10^3/uL (0.0-1.1) Eosinophils # (Auto) 0.2x10^3/uL (0.0-0.7) Basophils # (Auto) 0.0x10^3/uL (0.0-0.2) Sodium Level 138mmol/L (136-145) Potassium Level 4.0mmol/L (3.5-5.1) Chloride Level 102mmol/L (98-107) Carbon Dioxide Level 27mmol/L (21-32) Anion Gap 9 (6-14) Blood Urea Nitrogen 13mg/dL (7-20) Creatinine 0.9mg/dL (0.6-1.0) Estimated GFR (Cockcroft-Gault) 64.5 Glucose Level 105mg/dL (70-99) H Calcium Level 9.5mg/dL (8.5-10.1) Laboratory Tests 10/18/16 01:09 Laboratory Tests 10/18/16 01:09 EKG EKG [] Radiology/Procedures Radiology/Procedures PROCEDURE CT abdomen pelvis with contrast HISTORY Left lower quadrant pain TECHNIQUE After IV infusion of95 cc of Optiray-320, helical CT scanning of the abdomen and pelvis was performed.GI contrast was not administered. COMPARISON FINDINGS The liveer is homogeous in appearance and normal in size. The spleen is unremarkable and normal in size. The pancreas is homogeneous in appearance and no focal enlargement is seen. The gallbladder has been removed. No focal aneurysmal dilatation of the abdominal aorta is seen. No enlarged abdominal or pelvic lymphadenopathy is seen. No soft tissue mass is seen. No obstructive bowel pattern or bowel wall thickening or inflammatory change is seen. No free intraperitoneal fluid or abscess or free intraperitoneal air is seen. The lung bases are clear. Both kidneys are functioning and no hydronephrosis or renal mass or perinephric fluid collection is seen. The urinary bladder wall is smooth. No adrenal masses are seen. No osteolytic process is seen. The appendix is not seen. There is moderate sigmoid diverticulosis without surrounding inflammation. IMPRESSION Sigmoid diverticulosis without surrounding inflammation to suggest active diverticulitis. No acute findings. Electronically signed by: Maverick Domingo MD (Oct 18, 2016 03:06:16) Course & Med Decision Making Course & Med Decision Making Pertinent Labs and Imaging studies reviewed. (See chart for details) This 55-year-old female who's having significant left lower quadrant pain and a CT that showed findings significant for a sigmoid diverticulosis but no evidence of diverticulitis. Her laboratory workup was unremarkable. Patient was given initially a dose of IV fentanyl but this did not help her symptoms whatsoever. She was then given a dose of IV Dilaudid and she states this improved her symptoms mildly but she was still having significant pain. For this reason, I'll be admitting her and providing her antibiotics to treat her for suspected GI process including a non-radiographically evident diverticulitis. IV Ciprofloxacin and IV Flagyl were given. I will continue to give her Dilaudid as needed for the floor. I will discuss the need to admit the patient with the hospitalist, Dr. Simmons. She was admitted without incident. Dragon Disclaimer Dragon Disclaimer This electronic medical record was generated, in whole or in part, using a voice recognition dictation system. Departure Departure Impression: Primary Impression: Abdominal pain Disposition: ADMITTED INPATIENT Admitting Physician: Newton Simmons Condition: STABLE Referrals: RUTH PEREZ (PCP) DELANEY SUAZO DO Oct 18, 2016 04:58
[2016-10-18] MEDS: HYDROMORPHONE 2 MG/ML VIAL. IV PRN ×4 (05:29→16:20)
[2016-10-18 05:54] VITALS: BP 148/72
[2016-10-18] MEDS ORDERED: CIPROFLOXACIN 400MG PREMIX 200 ML IV SCH (06:00)
[2016-10-18 07:00] VITALS: BP 110/42
--- NOTE | 2016-10-18 08:45 | PDOC1 ---
History and Physical Date of Admission Date of Admission DATE: 10/18/16 TIME: 08:40 Identification/Chief Complaint Chief Complaint abd pain Source Source: Chart review, Patient History of Present Illness History of Present Illness Ms. Ng is a 55-year-old female, has been admitted 3x in past 3 mos with chest pain. I saw her in July, treated with lidocaine patch for chostochondritis. Today she was admitted with severe pain that she localizes to her left lower quadrant. She feels the pain is the same as when she has diverticulitis in the past. Pain reproducible and worsened with movement or using her abd muscles. No travel, no fever, no change in stool She denies any nausea or vomiting, and requested regular food this AM She states her last colonoscopy was several years ago and she was told she has multiple diverticula. She currently rates her pain an 8 out of 10 localized to left lower quadrant. was 10/10 Past Medical History Cardiovascular: HTN, Hyperlipidemia Pulmonary: No pertinent hx, Other CENTRAL NERVOUS SYSTEM: Migraine, TIA GI: Diverticulosis, GERD Heme/Onc: No pertinent hx Hepatobiliary: No pertinent hx Psych: Anxiety, Depression Musculoskeletal: Osteoarthritis Rheumatologic: Fibromyalgia Infectious disease: No pertinent hx Renal/: No pertinent hx Endocrine: Hypothyroidism Past Surgical History Past Surgical History: Appendectomy, Cholecystectomy, Tonsillectomy, Hysterectomy Family History Family History: Coronary Artery Disease, Hypertension Social History Smoke: No ALCOHOL: none Drugs: None Current Problem List Problem List Problems Medical Problems: (1) Abdominal pain Status: Acute Problems: Current Medications Current Medications Current Medications Fentanyl Citrate (Fentanyl 2ml Vial) 50 mcg 1X ONCE IV Last administered on 01:11; Start 10/18/16 at 01:00; Stop 10/18/16 at 01:01; Status DC Ondansetron HCl 4 mg 4 mg 1X ONCE IV Last administered on 10/18/16 01:11; Start 10/18/16 at 01:00; Stop 10/18/16 at 01:01; Status DC Sodium Chloride (Iv Sodium Chloride 0.9% 500ml Bag) 500 ml @ 500 mls/hr 1X ONCE IV Last administered on 10/18/16 01:12; Start 10/18/16 at 01:00; Stop at 01:59; Status DC Iohexol (Omnipaque 300 Mg/ml) 75 ml 1X ONCE IV Last administered on 10/18/16 02:18; Start 10/18/16 at 02:00; Stop 10/18/16 at 02:01; Status DC Hydromorphone HCl (Dilaudid) 1 mg 1X ONCE IV Last administered on 10/18/16 02: 50; Start 10/18/16 at 03:00; Stop 10/18/16 at 03:01; Status DC Ondansetron HCl (Zofran) 4 mg PRN Q8HRS PRN IV NAUSEA/VOMITING; Start 10/18/16 at 03:15; Stop 10/19/16 at 03:14 Hydromorphone HCl 1 mg 1 mg PRN Q2HR PRN IV SEVERE PAIN Last administered on 07:21; Start 10/18/16 at 03:15 Ciprofloxacin Lactate 200 ml @ 200 mls/hr BID66 IV ; Start 10/18/16 at 06:00; Status Cancel Metronidazole 100 ml @ 100 mls/hr 1X ONCE IV Last administered on 10/18/16 03 :45; Start 10/18/16 at 03:45; Stop 10/18/16 at 04:44; Status DC Ciprofloxacin Lactate 100 ml @ 100 mls/hr Q1H IV Last administered on 03:46; Start 10/18/16 at 04:00; Stop 10/18/16 at 05:59; Status DC Ciprofloxacin Lactate (Cipro 400mg Premix) 200 ml @ 200 mls/hr BID66 IV ; Start 10/18/16 at 18:00 Active Scripts Active [place] 5-325 Tablet (Acetaminophen/Hydrocodone Bitart) 1 Each Tablet 1 Tab PO PRN Q6HRS PRN Lidoderm (Lidocaine) 700 Mg Adh..patch 1 Patch TP DAILY Reported Sumavel Dosepro (Sumatriptan Succinate) 6 Mg/0.5 Ml Ndl.fr.inj 6 Mg SQ PRN Tramadol Hcl 50 Mg Tablet 50 Mg PO DAILY Trazodone Hcl 50 Mg Tablet 50 Mg PO DAILY PRN Melatonin 5 Mg Tab.rapdis 5 Mg PO DAILY Cyclobenzaprine Hcl 10 Mg Tablet 1 Tab PO TID Krill Oil 1,000 Mg Softgel (Krill/Om3/Dha/Epa/Om6/Lip/Astx) 1 Each Capsule 1 Each PO DAILY Niaspan (Niacin) 500 Mg Tab.er.24h 500 Mg PO HS Flunisolide 25 Ml [place] 1 [place] NS DAILY One spray per nostril Zyrtec (Cetirizine Hcl) 10 Mg Tablet 1 Tab PO DAILY Fish Oil ([place]-3 Fatty Acids) 500 Mg Capsule.dr 1,400 Mg PO Aspirin 81 Mg Tab.chew 81 Mg PO Fluoxetine Hcl 20 Mg Tablet 40 Mg PO DAILY Zolpidem Tartrate 10 Mg Tablet 10 Mg PO Robaxin (Methocarbamol) 500 Mg Tablet 500 Mg PO HS Losartan Potassium 50 Mg Tablet 50 Mg PO HS Levothyroxine Sodium 125 Mcg Tablet 125 Mcg PO DAILY Alprazolam 1 Mg Tablet 1 Mg PO DAILY PRN Allergies Allergies: Coded Allergies: Fenofibrate Nanocrystallized (Verified Allergy, Intermediate, migraines, ) celecoxib (Verified Allergy, Intermediate, 09/30/14) colesevelam (Verified Allergy, Intermediate, 09/30/14) dimenhydrinate (Verified Allergy, Intermediate, 09/30/14) duloxetine (Verified Allergy, Intermediate, 09/30/14) metoclopramide (Verified Allergy, Intermediate, itching, 09/30/14) pantoprazole sodium (Verified Allergy, Intermediate, rash, 09/30/14) pregabalin (Verified Allergy, Intermediate, rash, 09/30/14) vilazodone hydrochloride (Verified Allergy, Intermediate, 09/30/14) NSAIDS (Non-Steroidal Anti-Inflamma (Verified Adverse Reaction, Intermediate, ULCERS, 09/30/14) Qqpneiy-Ezh-Ayl Reductase Inhibitor (Verified Adverse Reaction, Intermediate, INCREASED LIVER ENZYMES, 09/30/14) ROS General: No: Appetite, Chills, Fatigue, Malaise, Night Sweats, Other PSYCHOLOGICAL ROS: No: Anxiety, Behavioral Disorder, Concentration difficultie , Decreased libido, Depression, Disorientation, Hallucinations, Hostility, Irritablity, Memory difficulties, Mood Swings, Obsessive thoughts, Other, Physical abuse, Sexual abuse, Sleep disturbances, Suicidal ideation Eyes: No Blurry vision, No Decreased vision, No Double vision, No Dry eyes, No Excessive tearing, No Eye Pain, No Itchy Eyes, No Loss of vision, No Other, No Photophobia, No Scotomata, No Uses contacts, No Uses glasses HEENT: No: Epistaxis, Heacaches, Hearing change, Nasal congestion, Nasal discharge, Oral lesions, Other, Sinus pain, Sneezing, Snoring, Sore Throat, Tinnitus, Vertigo, Visual Changes, Vocal changes Respiratory: No: Cough, Hemoptysis, Orthopnea, Other, Pleuritic Pain, SOB with excertion, Shortness of breath, Sputum Changes, Stridor, Tachypnea, Wheezing Cardiovascular: No Chest Pain, No Edema, No Lt Headedness, No Orthopnea, No Other, No Palpitations, No Paroxysmal Noc. Dyspnea Gastrointestinal: Yes Abdominal Pain, No Constipation, No Diarrhea, No Hematochezia, No Melena, No Nausea, No Other , No Vomiting Genitourinary: No , No , No , No , No , No , No , No Discharge, No Dysuria, No Flank Pain, No Frequency, No Hematuria, No Incontinence, No Other, No Pain, No Retention, No Urgency Musculoskeletal: Yes Pain In: (abd), No Gait Disturbance, No Joint Pain, No Joint Stiffness, No Joint Swelling, No Muscle Pain, No Muscular Weakness, No Other, No Swelling In: Neurological: No Behavorial Changes, No Bowel/Bladder ControlChng, No Confusion , No Dizziness, No Gait Disturbance, No Headaches, No Impaired Coord/balance, No Memory Loss, No Numbness/Tingling, No Other, No Seizures, No Speech Problems , No Tremors, No Visual Changes, No Weakness Physical Exam General: Alert, Oriented X3, Cooperative, mild distress, moderate distress HEENT: Atraumatic, PERRLA, EOMI, Mucous membr. moist/pink Lungs: Clear to auscultation, Normal air movement Abdomen: Normal bowel sounds, Soft (obese) Extremities: No clubbing, Normal pulses Skin: No rashes, No breakdown Neuro: Normal speech, Normal tone, Sensation intact Psych/Mental Status: Mental status NL, Mood NL Vitals Vitals Vital Signs Date Time Temp Pulse Resp B/P Pulse Ox O2 Delivery O2 Flow Rate FiO2 10/18/16 07:21 18 95 Room Air 2.0 10/18/16 07:00 97.4 85 110/42 97.4 Labs Labs Laboratory Tests Test 10/18/16 01:09 White Blood Count 6.4x10^3/uL (4.0-11.0) Red Blood Count 4.57x10^6/uL (3.50-5.40) Hemoglobin 12.4g/dL (12.0-15.5) Hematocrit 38.4% (36.0-47.0) Mean Corpuscular Volume 84fL (79-100) Mean Corpuscular Hemoglobin 27pg (25-35) Mean Corpuscular Hemoglobin Concent 32g/dL (31-37) Red Cell Distribution Width 13.3% (11.5-14.5) Platelet Count 208x10^3/uL (140-400) Neutrophils (%) (Auto) 64% (31-73) Lymphocytes (%) (Auto) 27% (24-48) Monocytes (%) (Auto) 5% (0-9) Eosinophils (%) (Auto) 3% (0-3) Basophils (%) (Auto) 1% (0-3) Neutrophils # (Auto) 4.1x10^3uL (1.8-7.7) Lymphocytes # (Auto) 1.7x10^3/uL (1.0-4.8) Monocytes # (Auto) 0.3x10^3/uL (0.0-1.1) Eosinophils # (Auto) 0.2x10^3/uL (0.0-0.7) Basophils # (Auto) 0.0x10^3/uL (0.0-0.2) Sodium Level 138mmol/L (136-145) Potassium Level 4.0mmol/L (3.5-5.1) Chloride Level 102mmol/L (98-107) Carbon Dioxide Level 27mmol/L (21-32) Anion Gap 9 (6-14) Blood Urea Nitrogen 13mg/dL (7-20) Creatinine 0.9mg/dL (0.6-1.0) Estimated GFR (Cockcroft-Gault) 64.5 Glucose Level 105mg/dL (70-99) Calcium Level 9.5mg/dL (8.5-10.1) Laboratory Tests Test 10/18/16 01:09 White Blood Count 6.4x10^3/uL (4.0-11.0) Red Blood Count 4.57x10^6/uL (3.50-5.40) Hemoglobin 12.4g/dL (12.0-15.5) Hematocrit 38.4% (36.0-47.0) Mean Corpuscular Volume 84fL (79-100) Mean Corpuscular Hemoglobin 27pg (25-35) Mean Corpuscular Hemoglobin Concent 32g/dL (31-37) Red Cell Distribution Width 13.3% (11.5-14.5) Platelet Count 208x10^3/uL (140-400) Neutrophils (%) (Auto) 64% (31-73) Lymphocytes (%) (Auto) 27% (24-48) Monocytes (%) (Auto) 5% (0-9) Eosinophils (%) (Auto) 3% (0-3) Basophils (%) (Auto) 1% (0-3) Neutrophils # (Auto) 4.1x10^3uL (1.8-7.7) Lymphocytes # (Auto) 1.7x10^3/uL (1.0-4.8) Monocytes # (Auto) 0.3x10^3/uL (0.0-1.1) Eosinophils # (Auto) 0.2x10^3/uL (0.0-0.7) Basophils # (Auto) 0.0x10^3/uL (0.0-0.2) Sodium Level 138mmol/L (136-145) Potassium Level 4.0mmol/L (3.5-5.1) Chloride Level 102mmol/L (98-107) Carbon Dioxide Level 27mmol/L (21-32) Anion Gap 9 (6-14) Blood Urea Nitrogen 13mg/dL (7-20) Creatinine 0.9mg/dL (0.6-1.0) Estimated GFR (Cockcroft-Gault) 64.5 Glucose Level 105mg/dL (70-99) Calcium Level 9.5mg/dL (8.5-10.1) VTE Prophylaxis Ordered VTE Prophylaxis Devices: No VTE Pharmacological Prophylaxi: Yes Assessment/Plan Assessment/Plan Acute abd pain, CT looks stable, no white count abx given for poss unseen diverticula, consult GI, she requested Morbid obesity, BMI 53 depression and anxiety and insomnia Left lower pain, reproducible, and with exertion of abd muscles. prior neg eval for angina here this year likely muscular strain, consult physiatry, try lidoderm patch and flexeril LUCIO MCCAULEY MD Oct 18, 2016 08:45
[2016-10-18] MEDS ORDERED: BUPIVACAINE MPF 0.25% 10 ML VIAL. IJ ONE (10:00)
[2016-10-18] MEDS ORDERED: methylPREDNISolone ACETATE 40 MG/ML VIAL. IM ONE (10:00)
[2016-10-18] MEDS: DOCUSATE SODIUM 100 MG CAPSULE. PO SCH (10:37)
[2016-10-18] MEDS: TRAMADOL 50 MG TABLET. PO SCH (10:37)
[2016-10-18] MEDS: LEVOTHYROXINE 125 MCG TABLET PO SCH (10:38)
[2016-10-18] MEDS: ASPIRIN CHEWABLE 81 MG TABLET. PO SCH (10:38)
[2016-10-18] MEDS: CETIRIZINE HCL 10 MG TABLET. PO SCH (10:38)
[2016-10-18] MEDS: FLUOXETINE HCL 20 MG CAPSULE. PO SCH (10:39)
[2016-10-18] MEDS: LIDOCAINE (700MG/PATCH) PATCH. TD SCH (10:45)
[2016-10-18 11:00] VITALS: BP 133/59
[2016-10-18] MEDS: FLUTICASONE 50MCG/NASAL SPRAY 16GM BOTTLE. NS SCH (14:13)
[2016-10-18 15:00] VITALS: BP 124/52
--- NOTE | 2016-10-18 15:20 | PDOC2 ---
CONSULT Date of Consult Date of Consult DATE: 10/18/16 TIME: 15:03 Reason for Consult Reason for Consult: LLQ pain Referring Physician Referring Physician: Dr. Luna Source Source: Chart review, Patient History of Present Illness Reason for Visit: 55 y/o female with onset of LLQ pain ~7:3o PM Tuesday. Describes as sharp and worse with position change, palpation or walking. Has stooled a couple of times since onset w/o change. No effect from eating. Recalls no trauma to the area. Has diverticulosis and has been treated empirically for diverticulitis in the past with similar complaints. Don't know than she's ever had a CT- documented episode. H/o IBS with stools ranging from hard to normal. Does have a history of colon polyps (adenomas in 2008); last colonoscopy in 09/29 negative for these and only diverticula and hemorrhoids noted. Denies diarrhea , hematochezia or melena. Wt/appetite OK. No nausea or vomiting. GI family history positive for GB disease in mother. Long h/o GERD, on daily PPI and taking pretty correctly. Several admissions here for NCCP. No dysphagia. EGD with the colonoscopy in 2014 with low-grade reflux and pre-pyloric ulcer ( biopsies c/w NSAID effect and negative for H.pylori). S/p rosalie for "gravel". No liver or pancreatic history, though has occasionally had abnormal LFT's. Former smoker. No alcohol. Uses 81mg ASA daily. Takes IM Toradol occasionally for migraines. Past Medical History Cardiovascular: HTN, Hyperlipidemia Pulmonary: Other ([place]) CENTRAL NERVOUS SYSTEM: Migraine, TIA Psych: Anxiety, Depression Musculoskeletal: Osteoarthritis Rheumatologic: Fibromyalgia Endocrine: Hypothyroidism Past Surgical History Past Surgical History: Appendectomy, Cholecystectomy, , Tubal Ligation , Tonsillectomy, Hysterectomy, Other (joint replacement) Family History Family History: Coronary Artery Disease, Hypertension, Stroke Social History No ALCOHOL: none Drugs: None Lives: with Family Current Problem List Problem List Problems Medical Problems: (1) Abdominal pain Status: Acute Current Medications Current Medications Current Medications Fentanyl Citrate (Fentanyl 2ml Vial) 50 mcg 1X ONCE IV Last administered on t 01:11; Start 10/18/16 at 01:00; Stop 10/18/16 at 01:01; Status DC Ondansetron HCl 4 mg 4 mg 1X ONCE IV Last administered on 10/18/16 01:11; Start 10/18/16 at 01:00; Stop 10/18/16 at 01:01; Status DC Sodium Chloride (Iv Sodium Chloride 0.9% 500ml Bag) 500 ml @ 500 mls/hr 1X ONCE IV Last administered on 10/18/16 01:12; Start 10/18/16 at 01:00; Stop at 01:59; Status DC Iohexol (Omnipaque 300 Mg/ml) 75 ml 1X ONCE IV Last administered on 10/18/16 02:18; Start 10/18/16 at 02:00; Stop 10/18/16 at 02:01; Status DC Hydromorphone HCl (Dilaudid) 1 mg 1X ONCE IV Last administered on 10/18/16 02: 50; Start 10/18/16 at 03:00; Stop 10/18/16 at 03:01; Status DC Ondansetron HCl (Zofran) 4 mg PRN Q8HRS PRN IV NAUSEA/VOMITING; Start 10/18/16 at 03:15; Stop 10/19/16 at 03:14 Hydromorphone HCl 1 mg 1 mg PRN Q2HR PRN IV SEVERE PAIN Last administered on 10:38; Start 10/18/16 at 03:15 Ciprofloxacin Lactate 200 ml @ 200 mls/hr BID66 IV ; Start 10/18/16 at 06:00; Status Cancel Metronidazole 100 ml @ 100 mls/hr 1X ONCE IV Last administered on 10/18/16 03 :45; Start 10/18/16 at 03:45; Stop 10/18/16 at 04:44; Status DC Ciprofloxacin Lactate 100 ml @ 100 mls/hr Q1H IV Last administered on 03:46; Start 10/18/16 at 04:00; Stop 10/18/16 at 05:59; Status DC Ciprofloxacin Lactate (Cipro 400mg Premix) 200 ml @ 200 mls/hr BID66 IV ; Start 10/18/16 at 18:00 Lidocaine (Lidoderm) 1 patch DAILY TD Last administered on 10/18/16 10:45; Start 10/18/16 at 09:00 Cyclobenzaprine HCl (Flexeril) 10 mg PRN Q6HRS PRN PO MUSCLE SPASMS; Start 10/18 at 08:45 Alprazolam (Xanax) 1 mg PRN DAILY PRN PO ANXIETY; Start 10/18/16 at 08:45 Aspirin (Children'S Aspirin) 81 mg DAILY PO Last administered on 10/18/16 10:38 ; Start 10/18/16 at 09:00 Cetirizine HCl (Zyrtec) 10 mg DAILY PO Last administered on 10/18/16 10:38; Start 10/18/16 at 09:00 Acetaminophen/ Hydrocodone Bitart ([place] 5/325) 1 tab PRN Q6HRS PRN PO PAIN; Start 10/18/16 at 08:45 Levothyroxine Sodium (Synthroid) 125 mcg DAILY07 PO Last administered on 10:38; Start 10/18/16 at 09:00 Losartan Potassium (Cozaar) 50 mg HS PO ; Start 10/18/16 at 21:00 Methocarbamol (Robaxin) 500 mg HS PO ; Start 10/18/16 at 21:00 Niacin (Slo-Niacin) 500 mg HS PO ; Start 10/18/16 at 21:00 Tramadol HCl (Ultram) 50 mg DAILY PO Last administered on 10/18/16 10:37; Start 10/18/16 at 09:00 Trazodone HCl (Desyrel) 50 mg PRN DAILY PRN PO MIGHA; Start 10/18/16 at 08:45 Fluticasone Propionate (Flonase) 2 spray DAILY NS Last administered on 14:13; Start 10/18/16 at 09:00 Fluoxetine HCl (Prozac) 40 mg DAILY PO Last administered on 10/18/16 10:39; Start 10/18/16 at 09:00 Docusate Sodium (Colace) 100 mg DAILY PO Last administered on 10/18/16 10:37; Start 10/18/16 at 09:00 Methylprednisolone Acetate (Depo-Medrol 40mg Vial) 40 mg 1X ONCE IM ; Start 10/18/16 at 10:00; Stop 10/18/16 at 10:01; Status DC Bupivacaine HCl (Sensorcaine-Mpf 0.25%) 10 ml 1X ONCE IJ ; Start 10/18/16 at 10: 00; Stop 10/18/16 at 10:01; Status DC Active Scripts Active [place] 5-325 Tablet (Acetaminophen/Hydrocodone Bitart) 1 Each Tablet 1 Tab PO PRN Q6HRS PRN Lidoderm (Lidocaine) 700 Mg Adh..patch 1 Patch TP DAILY Reported Sumavel Dosepro (Sumatriptan Succinate) 6 Mg/0.5 Ml Ndl.fr.inj 6 Mg SQ PRN Tramadol Hcl 50 Mg Tablet 50 Mg PO DAILY Trazodone Hcl 50 Mg Tablet 50 Mg PO DAILY PRN Melatonin 5 Mg Tab.rapdis 5 Mg PO DAILY Cyclobenzaprine Hcl 10 Mg Tablet 1 Tab PO TID [place] Oil 1,000 Mg Softgel ([place]/Om3/Dha/Epa/Om6/Lip/Astx) 1 Each Capsule 1 Each PO DAILY Niaspan (Niacin) 500 Mg Tab.er.24h 500 Mg PO HS Flunisolide 25 Ml [place] 1 [place] NS DAILY One spray per nostril Zyrtec (Cetirizine Hcl) 10 Mg Tablet 1 Tab PO DAILY Fish Oil ([place]-3 Fatty Acids) 500 Mg Capsule.dr 1,400 Mg PO Aspirin 81 Mg Tab.chew 81 Mg PO Fluoxetine Hcl 20 Mg Tablet 40 Mg PO DAILY Zolpidem Tartrate 10 Mg Tablet 10 Mg PO Robaxin (Methocarbamol) 500 Mg Tablet 500 Mg PO HS Losartan Potassium 50 Mg Tablet 50 Mg PO HS Levothyroxine Sodium 125 Mcg Tablet 125 Mcg PO DAILY Alprazolam 1 Mg Tablet 1 Mg PO DAILY PRN Allergies Allergies: Coded Allergies: Fenofibrate Nanocrystallized (Verified Allergy, Intermediate, migraines, ) celecoxib (Verified Allergy, Intermediate, 09/30/14) colesevelam (Verified Allergy, Intermediate, 09/30/14) dimenhydrinate (Verified Allergy, Intermediate, 09/30/14) duloxetine (Verified Allergy, Intermediate, 09/30/14) metoclopramide (Verified Allergy, Intermediate, itching, 09/30/14) pantoprazole sodium (Verified Allergy, Intermediate, rash, 09/30/14) pregabalin (Verified Allergy, Intermediate, rash, 09/30/14) vilazodone hydrochloride (Verified Allergy, Intermediate, 09/30/14) NSAIDS (Non-Steroidal Anti-Inflamma (Verified Adverse Reaction, Intermediate, ULCERS, 09/30/14) Bwvimos-Ftm-Lmx Reductase Inhibitor (Verified Adverse Reaction, Intermediate, INCREASED LIVER ENZYMES, 09/30/14) ROS Review of System 10-point review otherwise negative. Physical Exam General: Alert, Oriented X3, Cooperative, No acute distress Lungs: Clear to auscultation Heart: Regular rate, Normal S1, Normal S2, No murmurs Abdomen: Normal bowel sounds, Soft, No hepatosplenomegaly, No masses, Other ( tender left rectus muscle; no real intraabdominal findings) Extremities: No cyanosis, No edema Skin: No significant lesion Neuro: Normal speech, Strength at 5/5 X4 ext, Normal tone, Sensation intact, Cranial nerves 3-12 NL, Reflexes 2+ Psych/Mental Status: Mental status NL, Mood NL MUSCULOSKELETAL: No deformity, No swelling Vitals VITALS Vital Signs Date Time Temp Pulse Resp B/P Pulse Ox O2 Delivery O2 Flow Rate FiO2 10/18/16 11:00 96.6 76 20 133/59 97 Room Air 96.6 10/18/16 07:21 2.0 Labs Labs Laboratory Tests Test 10/18/16 01:09 White Blood Count 6.4x10^3/uL (4.0-11.0) Red Blood Count 4.57x10^6/uL (3.50-5.40) Hemoglobin 12.4g/dL (12.0-15.5) Hematocrit 38.4% (36.0-47.0) Mean Corpuscular Volume 84fL (79-100) Mean Corpuscular Hemoglobin 27pg (25-35) Mean Corpuscular Hemoglobin Concent 32g/dL (31-37) Red Cell Distribution Width 13.3% (11.5-14.5) Platelet Count 208x10^3/uL (140-400) Neutrophils (%) (Auto) 64% (31-73) Lymphocytes (%) (Auto) 27% (24-48) Monocytes (%) (Auto) 5% (0-9) Eosinophils (%) (Auto) 3% (0-3) Basophils (%) (Auto) 1% (0-3) Neutrophils # (Auto) 4.1x10^3uL (1.8-7.7) Lymphocytes # (Auto) 1.7x10^3/uL (1.0-4.8) Monocytes # (Auto) 0.3x10^3/uL (0.0-1.1) Eosinophils # (Auto) 0.2x10^3/uL (0.0-0.7) Basophils # (Auto) 0.0x10^3/uL (0.0-0.2) Sodium Level 138mmol/L (136-145) Potassium Level 4.0mmol/L (3.5-5.1) Chloride Level 102mmol/L (98-107) Carbon Dioxide Level 27mmol/L (21-32) Anion Gap 9 (6-14) Blood Urea Nitrogen 13mg/dL (7-20) Creatinine 0.9mg/dL (0.6-1.0) Estimated GFR (Cockcroft-Gault) 64.5 Glucose Level 105mg/dL (70-99) Calcium Level 9.5mg/dL (8.5-10.1) Laboratory Tests Test 10/18/16 01:09 White Blood Count 6.4x10^3/uL (4.0-11.0) Red Blood Count 4.57x10^6/uL (3.50-5.40) Hemoglobin 12.4g/dL (12.0-15.5) Hematocrit 38.4% (36.0-47.0) Mean Corpuscular Volume 84fL (79-100) Mean Corpuscular Hemoglobin 27pg (25-35) Mean Corpuscular Hemoglobin Concent 32g/dL (31-37) Red Cell Distribution Width 13.3% (11.5-14.5) Platelet Count 208x10^3/uL (140-400) Neutrophils (%) (Auto) 64% (31-73) Lymphocytes (%) (Auto) 27% (24-48) Monocytes (%) (Auto) 5% (0-9) Eosinophils (%) (Auto) 3% (0-3) Basophils (%) (Auto) 1% (0-3) Neutrophils # (Auto) 4.1x10^3uL (1.8-7.7) Lymphocytes # (Auto) 1.7x10^3/uL (1.0-4.8) Monocytes # (Auto) 0.3x10^3/uL (0.0-1.1) Eosinophils # (Auto) 0.2x10^3/uL (0.0-0.7) Basophils # (Auto) 0.0x10^3/uL (0.0-0.2) Sodium Level 138mmol/L (136-145) Potassium Level 4.0mmol/L (3.5-5.1) Chloride Level 102mmol/L (98-107) Carbon Dioxide Level 27mmol/L (21-32) Anion Gap 9 (6-14) Blood Urea Nitrogen 13mg/dL (7-20) Creatinine 0.9mg/dL (0.6-1.0) Estimated GFR (Cockcroft-Gault) 64.5 Glucose Level 105mg/dL (70-99) Calcium Level 9.5mg/dL (8.5-10.1) Images Images ON CT: IMPRESSION Sigmoid diverticulosis without surrounding inflammation to suggest active diverticulitis. No acute findings. Assessment/Plan Assessment/Plan IMP: 1. "LLQ" pain; history and exam suggest musculoskeletal source. 2. GERD 3. H/o NSAID ulcer 4. IBS 5. Diverticulosis; no diverticulitis on this occasion. 6. History of colon polyps, not due for surveillance. REC: Patient was reassured. OK with me to feed, consider discharge. Rest/heat for the abdominal wall pain. Continue PPI. Thank you for allowing me to assist in the care of this patient. Please call if questions. RORO ELDER MD Oct 18, 2016 15:20
[2016-10-18] MEDS: CIPROFLOXACIN 400MG PREMIX 200 ML IV SCH (18:47)
[2016-10-18 19:00] VITALS: BP 157/92
--- NOTE | 2016-10-18 19:00 | PDOC4 ---
PROCEDURE Procedure At her request,I have injected painful left sacroiliac joint area with marcaine and depomedrol solution and she tolerated the procedure satisfactorily without any side effects. MARIBEL COFFMAN MD Oct 18, 2016 19:00
[2016-10-18] MEDS: CYCLOBENZAPRINE 10 MG TABLET. PO PRN (21:01)
[2016-10-18] MEDS: ALPRAZOLAM 1 MG TABLET PO PRN (21:01)
[2016-10-18] MEDS: METHOCARBAMOL 500 MG TABLET PO SCH (21:02)
[2016-10-18] MEDS: NIACIN ER 500 MG TABLET.ER PO SCH (21:03)
[2016-10-18] MEDS: HYDROCODONE/APAP 5/325MG TABLET. PO PRN (21:03)
[2016-10-18] MEDS: LOSARTAN POTASSIUM 50 MG TABLET. PO SCH (21:03)
[2016-10-18] MEDS: traZODone 50 MG TABLET. PO PRN (21:06)
[2016-10-18 23:00] VITALS: BP 154/73
[2016-10-19 03:00] VITALS: BP 150/81
--- NOTE | 2016-10-19 04:08 | CONS ---
DATE OF CONSULTATION: 10/18/2016 REQUESTING PHYSICIAN: Dr. Newton Simmons. ROOM: She is in 530. REASON FOR CONSULTATION: Left groin and left lower quadrant abdominal pain. HISTORY OF PRESENT ILLNESS: This is a 55-year-old right-handed female admitted 3 times in the past with chest pain. The patient received lidocaine patch for her costochondritis. The patient had problems with diverticulitis in the past. She admits to severe pain that localized to her left lower quadrant. The pain is reproducible and worsened with movement or using her abdominal muscles. She denies any nausea, vomiting and she had good bowel movements. She had a colonoscopy done several years ago and she was told that she had multiple diverticula. PAST MEDICAL HISTORY: The patient also with known hypertension, hyperlipidemia, migraine episodes, TIA, diverticulosis, gastroesophageal reflux disease, anxiety, depression, osteoarthritis, status post left total knee arthroplasty, fibromyalgia, hypothyroidism, status post appendectomy, cholecystectomy, tonsillectomy and hysterectomy. FAMILY HISTORY: Coronary artery disease and hypertension. ALLERGIES: SHE IS KNOWN ALLERGIC TO MULTIPLE NONSTEROIDAL ANTI-INFLAMMATORY MEDICATION, FENOFIBRATE NANOCRYSTALLIZED, STATINS, HMG-COA REDUCTASE INHIBITOR, CELEBREX, COLESEVELAM, DIMENHYDRINATE, DULOXETINE, METOCLOPRAMIDE. DIAGNOSTIC STUDIES: The patient had CT scan of the abdomen and pelvis, which revealed sigmoid diverticulosis without surrounding inflammation to suggest ____ diverticulitis. PHYSICAL EXAMINATION: GENERAL: Today revealed a middle-aged female. She is obese. She is alert, oriented to time, place, person and circumstance and follows commands appropriately. EXTREMITIES: She had 5/5 grade muscle strength in her extremities and deep tendon reflexes are decreased overall. She had pain with range of motion on both hip joints, crepitus on range of motion of her right knee joint. The patient had tenderness to palpation over left lumbar paraspinal and sacroiliac joint area and to some extent on the right side. Straight leg raising test is negative bilaterally. She is independent with bed mobility and transfers. ASSESSMENT: The patient with lower back pain, most probably from degenerative disk disease of lumbar vertebrae without any clinical evidence of ongoing lumbar radiculopathy, degenerative joint disease of right knee without any pain, status post left total knee arthroplasty, obesity, hypertension, hyperlipidemia, migraines, transient ischemic attack, diverticulosis, gastroesophageal reflux disease, anxiety, depression, fibromyalgia and hypothyroidism. RECOMMENDATIONS: To proceed with injecting painful left sacroiliac joint area to help ease her pain. I have instructed her in a home program of physical modalities and stretching exercises. Dr. Luna, I appreciate asking me to participate in the care of this interesting patient. I will be glad to follow her with you as needed for her rehabilitation. MARIBEL COFFMAN MD DR: JAZ/millie JOB#: [id number] / [id number]
[2016-10-19 04:28] LABS: BASO % 1 % (0-3); EOS % 3 % (0-3); HEMATOCRIT 36.6 % (36.0-47.0); HEMOGLOBIN 11.8 g/dL (12.0-15.5); LYMPH # 0.7 x10^3/uL (1.0-4.8); LYMPH % 15 % (24-48); MEAN CORPUSCULAR HEMOGLOBIN 27 pg (25-35); MEAN CORPUSCULAR HGB CONC 32 g/dL (31-37); MEAN CORPUSCULAR VOLUME 85 fL (79-100); MONO % 5 % (0-9); NEUT % 76 % (31-73); PLATELET COUNT 198 x10^3/uL (140-400); RED BLOOD COUNT 4.33 x10^6/uL (3.50-5.40); RED CELL DISTRIBUTION WIDTH 13.3 % (11.5-14.5); WHITE BLOOD COUNT 4.6 x10^3/uL (4.0-11.0)
[2016-10-19 04:36] LABS: CALCIUM 9.6 mg/dL (8.5-10.1); CREATININE 0.9 mg/dL (0.6-1.0); GFR 64.5; POTASSIUM 4.9 mmol/L (3.5-5.1)
[2016-10-19] MEDS: CIPROFLOXACIN 400MG PREMIX 200 ML IV SCH ×2 (05:09→17:57)
[2016-10-19] MEDS: LEVOTHYROXINE 125 MCG TABLET PO SCH (05:09)
[2016-10-19 07:00] VITALS: BP 122/66
[2016-10-19] MEDS: FLUOXETINE HCL 20 MG CAPSULE. PO SCH (08:47)
[2016-10-19] MEDS: DOCUSATE SODIUM 100 MG CAPSULE. PO SCH (08:48)
[2016-10-19] MEDS: TRAMADOL 50 MG TABLET. PO SCH (08:49)
[2016-10-19] MEDS: CETIRIZINE HCL 10 MG TABLET. PO SCH (08:49)
[2016-10-19] MEDS: LIDOCAINE (700MG/PATCH) PATCH. TD SCH (08:50)
[2016-10-19] MEDS: ASPIRIN CHEWABLE 81 MG TABLET. PO SCH (08:50)
[2016-10-19] MEDS: FLUTICASONE 50MCG/NASAL SPRAY 16GM BOTTLE. NS SCH (08:51)
[2016-10-19] MEDS: HYDROCODONE/APAP 5/325MG TABLET. PO PRN ×2 (10:20→21:21)
[2016-10-19] MEDS: HYDROMORPHONE 2 MG/ML VIAL. IV PRN ×3 (10:26→17:59)
[2016-10-19] MEDS ORDERED: POLYETHYLENE GLYCOL 3350 17 GM PACKET. PO PRN (11:00)
[2016-10-19] MEDS ORDERED: MAGNESIUM HYDROXIDE 2,400 MG/30 ML ORAL.SUSP. PO PRN (11:00)
[2016-10-19 11:25] VITALS: BP 139/66
[2016-10-19] MEDS ORDERED: POLYETHYLENE GLYCOL 3350 17 GM PACKET. PO ONE (11:30)
[2016-10-19] MEDS ORDERED: MAGNESIUM HYDROXIDE 2,400 MG/30 ML ORAL.SUSP. PO ONE (11:30)
--- NOTE | 2016-10-19 12:54 | PDOC ---
Subjective: Subjective: Doing okay, ate lunch w/o issue. Still has some pain. Objective: Vital Signs: Vital Signs Date Time Temp Pulse Resp B/P Pulse Ox O2 Delivery O2 Flow Rate FiO2 10/19/16 11:25 98.5 77 21 139/66 91 Room Air 98.5 10/19/16 08:49 2.0 Labs: Laboratory Tests Test 10/19/16 03:41 10/19/16 04:30 Sodium Level 141mmol/L Potassium Level 4.9mmol/L Chloride Level 105mmol/L Carbon Dioxide Level 29mmol/L Anion Gap 7 Blood Urea Nitrogen 7mg/dL Creatinine 0.9mg/dL Estimated GFR (Cockcroft-Gault) 64.5 Glucose Level 127mg/dL Calcium Level 9.6mg/dL White Blood Count 4.6x10^3/uL Red Blood Count 4.33x10^6/uL Hemoglobin 11.8g/dL Hematocrit 36.6% Mean Corpuscular Volume 85fL Mean Corpuscular Hemoglobin 27pg Mean Corpuscular Hemoglobin Concent 32g/dL Red Cell Distribution Width 13.3% Platelet Count 198x10^3/uL Neutrophils (%) (Auto) 76% Lymphocytes (%) (Auto) 15% Monocytes (%) (Auto) 5% Eosinophils (%) (Auto) 3% Basophils (%) (Auto) 1% Neutrophils # (Auto) 3.5x10^3uL Lymphocytes # (Auto) 0.7x10^3/uL Monocytes # (Auto) 0.2x10^3/uL Eosinophils # (Auto) 0.1x10^3/uL Basophils # (Auto) 0.0x10^3/uL Imaging: CT A/P w/ IV contrast FINDINGS The liveer is homogeous in appearance and normal in size. The spleen is unremarkable and normal in size. The pancreas is homogeneous in appearance and no focal enlargement is seen. The gallbladder has been removed. No focal aneurysmal dilatation of the abdominal aorta is seen. No enlarged abdominal or pelvic lymphadenopathy is seen. No soft tissue mass is seen. No obstructive bowel pattern or bowel wall thickening or inflammatory change is seen. No free intraperitoneal fluid or abscess or free intraperitoneal air is seen. The lung bases are clear. Both kidneys are functioning and no hydronephrosis or renal mass or perinephric fluid collection is seen. The urinary bladder wall is smooth. No adrenal masses are seen. No osteolytic process is seen. The appendix is not seen. There is moderate sigmoid diverticulosis without surrounding inflammation. IMPRESSION Sigmoid diverticulosis without surrounding inflammation to suggest active diverticulitis. No acute findings. PE: GEN: NAD LUNGS: CTAB HEART: RRR ABD: NABS, S/ND, LLQ tenderness, overweight NEURO/PSYCH: A & O 3 A/P: LLQ pain -up to date on colonoscopy (h/o polyps, diverticulosis), h/o IBS GERD, h/o NSAID ulcer -on PPI -- Pain likely MSK-related and not clearly GI. AYANA CUEVAS Oct 19, 2016 12:54
--- NOTE | 2016-10-19 13:14 | PDOC ---
PROGRESS NOTES Chief Complaint Chief Complaint Acute abd pain, muscle strain hx divertilosis, Morbid obesity, BMI 53 depression and anxiety and insomnia Left lower pain, reproducible, and with exertion of abd muscles. History of Present Illness History of Present Illness pain worsened again this AM,, she was in distress, and reported 10/10 pain " but not as bad as knee replacement" "not as bad as childbirth" I did try to argue with her some about then the true meaning of 10/10, RN was in room, discussed 5 min, patient reported 10/10 pain Vitals Vitals Vital Signs Date Time Temp Pulse Resp B/P Pulse Ox O2 Delivery O2 Flow Rate FiO2 10/19/16 11:25 98.5 77 21 139/66 91 Room Air 98.5 10/19/16 08:49 2.0 Physical Exam General: Alert, Oriented X3, Cooperative, moderate distress, severe distress, Other (fluctuating) Heart: Regular rate, Normal S1, Normal S2, No murmurs Lungs: Clear Abdomen: Normal bowel sounds, Soft, No hepatosplenomegaly, No masses, Other ( tender left rectus muscle; no real intraabdominal findings) Extremities: No cyanosis, No edema Skin: No significant lesion Labs LABS Laboratory Tests Test 10/19/16 03:41 10/19/16 04:30 Sodium Level 141mmol/L (136-145) Potassium Level 4.9mmol/L (3.5-5.1) Chloride Level 105mmol/L (98-107) Carbon Dioxide Level 29mmol/L (21-32) Anion Gap 7 (6-14) Blood Urea Nitrogen 7mg/dL (7-20) Creatinine 0.9mg/dL (0.6-1.0) Estimated GFR (Cockcroft-Gault) 64.5 Glucose Level 127mg/dL (70-99) Calcium Level 9.6mg/dL (8.5-10.1) White Blood Count 4.6x10^3/uL (4.0-11.0) Red Blood Count 4.33x10^6/uL (3.50-5.40) Hemoglobin 11.8g/dL (12.0-15.5) Hematocrit 36.6% (36.0-47.0) Mean Corpuscular Volume 85fL (79-100) Mean Corpuscular Hemoglobin 27pg (25-35) Mean Corpuscular Hemoglobin Concent 32g/dL (31-37) Red Cell Distribution Width 13.3% (11.5-14.5) Platelet Count 198x10^3/uL (140-400) Neutrophils (%) (Auto) 76% (31-73) Lymphocytes (%) (Auto) 15% (24-48) Monocytes (%) (Auto) 5% (0-9) Eosinophils (%) (Auto) 3% (0-3) Basophils (%) (Auto) 1% (0-3) Neutrophils # (Auto) 3.5x10^3uL (1.8-7.7) Lymphocytes # (Auto) 0.7x10^3/uL (1.0-4.8) Monocytes # (Auto) 0.2x10^3/uL (0.0-1.1) Eosinophils # (Auto) 0.1x10^3/uL (0.0-0.7) Basophils # (Auto) 0.0x10^3/uL (0.0-0.2) Review of Systems Review of Systems pain, nausea poor po intake Assessment and Plan Assessmemt and Plan Problems Medical Problems: (1) Abdominal pain Status: Acute Problems: Comment Review of Relevant I have reviewed the following items radha (where applicable) has been applied. Labs Laboratory Tests Test 10/18/16 01:09 10/19/16 03:41 10/19/16 04:30 White Blood Count 6.4x10^3/uL (4.0-11.0) 4.6x10^3/uL (4.0-11.0) Red Blood Count 4.57x10^6/uL (3.50-5.40) 4.33x10^6/uL (3.50-5.40) Hemoglobin 12.4g/dL (12.0-15.5) 11.8g/dL (12.0-15.5) Hematocrit 38.4% (36.0-47.0) 36.6% (36.0-47.0) Mean Corpuscular Volume 84fL (79-100) 85fL (79-100) Mean Corpuscular Hemoglobin 27pg (25-35) 27pg (25-35) Mean Corpuscular Hemoglobin Concent 32g/dL (31-37) 32g/dL (31-37) Red Cell Distribution Width 13.3% (11.5-14.5) 13.3% (11.5-14.5) Platelet Count 208x10^3/uL (140-400) 198x10^3/uL (140-400) Neutrophils (%) (Auto) 64% (31-73) 76% (31-73) Lymphocytes (%) (Auto) 27% (24-48) 15% (24-48) Monocytes (%) (Auto) 5% (0-9) 5% (0-9) Eosinophils (%) (Auto) 3% (0-3) 3% (0-3) Basophils (%) (Auto) 1% (0-3) 1% (0-3) Neutrophils # (Auto) 4.1x10^3uL (1.8-7.7) 3.5x10^3uL (1.8-7.7) Lymphocytes # (Auto) 1.7x10^3/uL (1.0-4.8) 0.7x10^3/uL (1.0-4.8) Monocytes # (Auto) 0.3x10^3/uL (0.0-1.1) 0.2x10^3/uL (0.0-1.1) Eosinophils # (Auto) 0.2x10^3/uL (0.0-0.7) 0.1x10^3/uL (0.0-0.7) Basophils # (Auto) 0.0x10^3/uL (0.0-0.2) 0.0x10^3/uL (0.0-0.2) Sodium Level 138mmol/L (136-145) 141mmol/L (136-145) Potassium Level 4.0mmol/L (3.5-5.1) 4.9mmol/L (3.5-5.1) Chloride Level 102mmol/L (98-107) 105mmol/L (98-107) Carbon Dioxide Level 27mmol/L (21-32) 29mmol/L (21-32) Anion Gap 9 (6-14) 7 (6-14) Blood Urea Nitrogen 13mg/dL (7-20) 7mg/dL (7-20) Creatinine 0.9mg/dL (0.6-1.0) 0.9mg/dL (0.6-1.0) Estimated GFR (Cockcroft-Gault) 64.5 64.5 Glucose Level 105mg/dL (70-99) 127mg/dL (70-99) Calcium Level 9.5mg/dL (8.5-10.1) 9.6mg/dL (8.5-10.1) Laboratory Tests Test 10/19/16 03:41 10/19/16 04:30 Sodium Level 141mmol/L (136-145) Potassium Level 4.9mmol/L (3.5-5.1) Chloride Level 105mmol/L (98-107) Carbon Dioxide Level 29mmol/L (21-32) Anion Gap 7 (6-14) Blood Urea Nitrogen 7mg/dL (7-20) Creatinine 0.9mg/dL (0.6-1.0) Estimated GFR (Cockcroft-Gault) 64.5 Glucose Level 127mg/dL (70-99) Calcium Level 9.6mg/dL (8.5-10.1) White Blood Count 4.6x10^3/uL (4.0-11.0) Red Blood Count 4.33x10^6/uL (3.50-5.40) Hemoglobin 11.8g/dL (12.0-15.5) Hematocrit 36.6% (36.0-47.0) Mean Corpuscular Volume 85fL (79-100) Mean Corpuscular Hemoglobin 27pg (25-35) Mean Corpuscular Hemoglobin Concent 32g/dL (31-37) Red Cell Distribution Width 13.3% (11.5-14.5) Platelet Count 198x10^3/uL (140-400) Neutrophils (%) (Auto) 76% (31-73) Lymphocytes (%) (Auto) 15% (24-48) Monocytes (%) (Auto) 5% (0-9) Eosinophils (%) (Auto) 3% (0-3) Basophils (%) (Auto) 1% (0-3) Neutrophils # (Auto) 3.5x10^3uL (1.8-7.7) Lymphocytes # (Auto) 0.7x10^3/uL (1.0-4.8) Monocytes # (Auto) 0.2x10^3/uL (0.0-1.1) Eosinophils # (Auto) 0.1x10^3/uL (0.0-0.7) Basophils # (Auto) 0.0x10^3/uL (0.0-0.2) Medications Current Medications Fentanyl Citrate (Fentanyl 2ml Vial) 50 mcg 1X ONCE IV Last administered on 01:11; Start 10/18/16 at 01:00; Stop 10/18/16 at 01:01; Status DC Ondansetron HCl 4 mg 4 mg 1X ONCE IV Last administered on 10/18/16 01:11; Start 10/18/16 at 01:00; Stop 10/18/16 at 01:01; Status DC Sodium Chloride (Iv Sodium Chloride 0.9% 500ml Bag) 500 ml @ 500 mls/hr 1X ONCE IV Last administered on 10/18/16 01:12; Start 10/18/16 at 01:00; Stop at 01:59; Status DC Iohexol (Omnipaque 300 Mg/ml) 75 ml 1X ONCE IV Last administered on 10/18/16 02:18; Start 10/18/16 at 02:00; Stop 10/18/16 at 02:01; Status DC Hydromorphone HCl (Dilaudid) 1 mg 1X ONCE IV Last administered on 10/18/16 02: 50; Start 10/18/16 at 03:00; Stop 10/18/16 at 03:01; Status DC Ondansetron HCl (Zofran) 4 mg PRN Q8HRS PRN IV NAUSEA/VOMITING; Start 10/18/16 at 03:15; Stop 10/19/16 at 03:14; Status DC Hydromorphone HCl 1 mg 1 mg PRN Q2HR PRN IV SEVERE PAIN Last administered on 10:26; Start 10/18/16 at 03:15 Ciprofloxacin Lactate 200 ml @ 200 mls/hr [id number] IV ; Start 10/18/16 at 06:00; Status Cancel Metronidazole 100 ml @ 100 mls/hr 1X ONCE IV Last administered on 10/18/16 03 :45; Start 10/18/16 at 03:45; Stop 10/18/16 at 04:44; Status DC Ciprofloxacin Lactate 100 ml @ 100 mls/hr Q1H IV Last administered on 03:46; Start 10/18/16 at 04:00; Stop 10/18/16 at 05:59; Status DC Ciprofloxacin Lactate (Cipro 400mg Premix) 200 ml @ 200 mls/hr [id number] IV Last administered on 10/19/16 05:09; Start 10/18/16 at 18:00 Lidocaine (Lidoderm) 1 patch DAILY TD Last administered on 10/19/16 08:50; Start 10/18/16 at 09:00 Cyclobenzaprine HCl (Flexeril) 10 mg PRN Q6HRS PRN PO MUSCLE SPASMS Last administered on 10/18/16 21:01; Start 10/18/16 at 08:45 Alprazolam (Xanax) 1 mg PRN DAILY PRN PO ANXIETY Last administered on 10/18/16 21:01; Start 10/18/16 at 08:45 Aspirin (Children'S Aspirin) 81 mg DAILY PO Last administered on 10/19/16 08:50 ; Start 10/18/16 at 09:00 Cetirizine HCl (Zyrtec) 10 mg DAILY PO Last administered on 10/19/16 08:49; Start 10/18/16 at 09:00 Acetaminophen/ Hydrocodone Bitart (Lortab 5/325) 1 tab PRN Q6HRS PRN PO PAIN Last administered on 10/19/16 10:20; Start 10/18/16 at 08:45 Levothyroxine Sodium (Synthroid) 125 mcg DAILY07 PO Last administered on 05:09; Start 10/18/16 at 09:00 Losartan Potassium (Cozaar) 50 mg HS PO Last administered on 10/18/16 21:03; Start 10/18/16 at 21:00 Methocarbamol (Robaxin) 500 mg HS PO Last administered on 10/18/16 21:02; Start 10/18/16 at 21:00 Niacin (Slo-Niacin) 500 mg HS PO Last administered on 10/18/16 21:03; Start 10/18/16 at 21:00 Tramadol HCl (Ultram) 50 mg DAILY PO Last administered on 10/19/16 08:49; Start 10/18/16 at 09:00 Trazodone HCl (Desyrel) 50 mg PRN DAILY PRN PO MIGHA Last administered on 21:06; Start 10/18/16 at 08:45 Fluticasone Propionate (Flonase) 2 spray DAILY NS Last administered on 08:51; Start 10/18/16 at 09:00 Fluoxetine HCl (Prozac) 40 mg DAILY PO Last administered on 10/19/16 08:47; Start 10/18/16 at 09:00 Docusate Sodium (Colace) 100 mg DAILY PO Last administered on 10/19/16 08:48; Start 10/18/16 at 09:00 Methylprednisolone Acetate (Depo-Medrol 40mg Vial) 40 mg 1X ONCE IM Last administered on 10/18/16 18:45; Start 10/18/16 at 10:00; Stop 10/18/16 at 10:01; Status DC Bupivacaine HCl (Sensorcaine-Mpf 0.25%) 10 ml 1X ONCE IJ Last administered on 10/18/16 18:45; Start 10/18/16 at 10:00; Stop 10/18/16 at 10:01; Status DC Magnesium Hydroxide (Milk Of Magnesia) 2,400 mg 1X ONCE PO ; Start 10/19/16 at 11:30; Stop 10/19/16 at 11:31; Status DC Magnesium Hydroxide (Milk Of Magnesia) 2,400 mg PRN DAILY PRN PO CONSTIPATION; Start 10/19/16 at 11:00 Polyethylene Glycol (miraLAX PACKET) 17 gm 1X ONCE PO ; Start 10/19/16 at 11:30 ; Stop 10/19/16 at 11:31; Status DC Polyethylene Glycol (miraLAX PACKET) 17 gm PRN DAILY PRN PO CONSTIPATION; Start 10/19/16 at 11:00 Active Scripts Active [place] 5-325 Tablet (Acetaminophen/Hydrocodone Bitart) 1 Each Tablet 1 Tab PO PRN Q6HRS PRN Lidoderm (Lidocaine) 700 Mg Adh..patch 1 Patch TP DAILY Reported Sumavel Dosepro (Sumatriptan Succinate) 6 Mg/0.5 Ml Ndl.fr.inj 6 Mg SQ PRN Tramadol Hcl 50 Mg Tablet 50 Mg PO DAILY Trazodone Hcl 50 Mg Tablet 50 Mg PO DAILY PRN Melatonin 5 Mg Tab.rapdis 5 Mg PO DAILY Cyclobenzaprine Hcl 10 Mg Tablet 1 Tab PO TID Krill Oil 1,000 Mg Softgel (Krill/Om3/Dha/Epa/Om6/Lip/Astx) 1 Each Capsule 1 Each PO DAILY Niaspan (Niacin) 500 Mg Tab.er.24h 500 Mg PO HS Flunisolide 25 Ml [place] 1 [place] NS DAILY One spray per nostril Zyrtec (Cetirizine Hcl) 10 Mg Tablet 1 Tab PO DAILY Fish Oil ([place]-3 Fatty Acids) 500 Mg Capsule.dr 1,400 Mg PO Aspirin 81 Mg Tab.chew 81 Mg PO Fluoxetine Hcl 20 Mg Tablet 40 Mg PO DAILY Zolpidem Tartrate 10 Mg Tablet 10 Mg PO Robaxin (Methocarbamol) 500 Mg Tablet 500 Mg PO HS Losartan Potassium 50 Mg Tablet 50 Mg PO HS Levothyroxine Sodium 125 Mcg Tablet 125 Mcg PO DAILY Alprazolam 1 Mg Tablet 1 Mg PO DAILY PRN Vitals/I & O Vital Sign - Last 24 Hours 10/18/16 10/18/16 10/18/16 10/18/16 15:00 16:20 16:50 19:00 Temp 97.6 97.7 97.6 97.7 Pulse 83 84 Resp B/P 124/52 157/92 Pulse Ox 94 94 94 89 O2 Delivery Room Air Room Air Room Air Room Air 10/18/16 10/18/16 10/18/16 10/18/16 20:00 21:03 21:03 22:03 Pulse 87 Resp 18 B/P 153/89 Pulse Ox 89 O2 Delivery Room Air Room Air Room Air O2 Flow Rate 2.0 10/18/16 10/19/16 10/19/16 10/19/16 23:00 03:00 07:00 08:00 Temp 97.9 97.3 98.4 97.9 97.3 98.4 Pulse 107 98 71 Resp 20 20 B/P 154/73 150/81 122/66 Pulse Ox 90 92 92 O2 Delivery Nasal Cannula Nasal Cannula Room Air Room Air O2 Flow Rate 2.0 2.0 10/19/16 10/19/16 10/19/16 10/19/16 08:49 10:20 10:20 10:26 Resp 18 20 20 22 Pulse Ox 92 92 92 92 O2 Delivery Nasal Cannula Room Air Room Air Room Air O2 Flow Rate 2.0 10/19/16 11:25 Temp 98.5 98.5 Pulse 77 Resp 21 B/P 139/66 Pulse Ox 91 O2 Delivery Room Air Intake and Output 10/18/16 10/18/16 10/19/16 15:00 23:00 07:00 Intake Total 650 ml 1150 ml 1100 ml Output Total 700 ml Balance 650 ml 450 ml 1100 ml LUCIO MCCAULEY MD Oct 19, 2016 13:13
[2016-10-19 14:47] VITALS: BP 121/55
--- NOTE | 2016-10-19 18:23 | PDOC ---
PROGRESS NOTES Subjective Subjective She admits of feeling better with lidoderm patch last night but admits severe left lower quadrant abdominal pain today. Objective Objective Vital Signs Date Time Temp Pulse Resp B/P Pulse Ox O2 Delivery O2 Flow Rate FiO2 10/19/16 17:59 20 92 Room Air 2.0 10/19/16 14:47 98.4 76 121/55 98.4 Intake and Output 10/19/16 07:00 Intake Total 2900 ml Output Total 700 ml Balance 2200 ml Intake Oral 2900 ml Output Urine Total 700 ml # Voids 3 Physical Exam Physical Exam She is in moderate distress supine in bed holding onto her left lower part of abdomen. Assessment Assessment Problems Medical Problems: (1) Abdominal pain Status: Acute Plan Plan of Care I spoke to .Agree with plans.To consider mri scan of lumbar spine if pain persists. Comment Review of Relevant I have reviewed the following items radha (where applicable) has been applied. Labs Laboratory Tests Test 10/18/16 01:09 10/19/16 03:41 10/19/16 04:30 White Blood Count 6.4x10^3/uL (4.0-11.0) 4.6x10^3/uL (4.0-11.0) Red Blood Count 4.57x10^6/uL (3.50-5.40) 4.33x10^6/uL (3.50-5.40) Hemoglobin 12.4g/dL (12.0-15.5) 11.8g/dL (12.0-15.5) Hematocrit 38.4% (36.0-47.0) 36.6% (36.0-47.0) Mean Corpuscular Volume 84fL (79-100) 85fL (79-100) Mean Corpuscular Hemoglobin 27pg (25-35) 27pg (25-35) Mean Corpuscular Hemoglobin Concent 32g/dL (31-37) 32g/dL (31-37) Red Cell Distribution Width 13.3% (11.5-14.5) 13.3% (11.5-14.5) Platelet Count 208x10^3/uL (140-400) 198x10^3/uL (140-400) Neutrophils (%) (Auto) 64% (31-73) 76% (31-73) Lymphocytes (%) (Auto) 27% (24-48) 15% (24-48) Monocytes (%) (Auto) 5% (0-9) 5% (0-9) Eosinophils (%) (Auto) 3% (0-3) 3% (0-3) Basophils (%) (Auto) 1% (0-3) 1% (0-3) Neutrophils # (Auto) 4.1x10^3uL (1.8-7.7) 3.5x10^3uL (1.8-7.7) Lymphocytes # (Auto) 1.7x10^3/uL (1.0-4.8) 0.7x10^3/uL (1.0-4.8) Monocytes # (Auto) 0.3x10^3/uL (0.0-1.1) 0.2x10^3/uL (0.0-1.1) Eosinophils # (Auto) 0.2x10^3/uL (0.0-0.7) 0.1x10^3/uL (0.0-0.7) Basophils # (Auto) 0.0x10^3/uL (0.0-0.2) 0.0x10^3/uL (0.0-0.2) Sodium Level 138mmol/L (136-145) 141mmol/L (136-145) Potassium Level 4.0mmol/L (3.5-5.1) 4.9mmol/L (3.5-5.1) Chloride Level 102mmol/L (98-107) 105mmol/L (98-107) Carbon Dioxide Level 27mmol/L (21-32) 29mmol/L (21-32) Anion Gap 9 (6-14) 7 (6-14) Blood Urea Nitrogen 13mg/dL (7-20) 7mg/dL (7-20) Creatinine 0.9mg/dL (0.6-1.0) 0.9mg/dL (0.6-1.0) Estimated GFR (Cockcroft-Gault) 64.5 64.5 Glucose Level 105mg/dL (70-99) 127mg/dL (70-99) Calcium Level 9.5mg/dL (8.5-10.1) 9.6mg/dL (8.5-10.1) Laboratory Tests Test 10/19/16 03:41 10/19/16 04:30 Sodium Level 141mmol/L (136-145) Potassium Level 4.9mmol/L (3.5-5.1) Chloride Level 105mmol/L (98-107) Carbon Dioxide Level 29mmol/L (21-32) Anion Gap 7 (6-14) Blood Urea Nitrogen 7mg/dL (7-20) Creatinine 0.9mg/dL (0.6-1.0) Estimated GFR (Cockcroft-Gault) 64.5 Glucose Level 127mg/dL (70-99) Calcium Level 9.6mg/dL (8.5-10.1) White Blood Count 4.6x10^3/uL (4.0-11.0) Red Blood Count 4.33x10^6/uL (3.50-5.40) Hemoglobin 11.8g/dL (12.0-15.5) Hematocrit 36.6% (36.0-47.0) Mean Corpuscular Volume 85fL (79-100) Mean Corpuscular Hemoglobin 27pg (25-35) Mean Corpuscular Hemoglobin Concent 32g/dL (31-37) Red Cell Distribution Width 13.3% (11.5-14.5) Platelet Count 198x10^3/uL (140-400) Neutrophils (%) (Auto) 76% (31-73) Lymphocytes (%) (Auto) 15% (24-48) Monocytes (%) (Auto) 5% (0-9) Eosinophils (%) (Auto) 3% (0-3) Basophils (%) (Auto) 1% (0-3) Neutrophils # (Auto) 3.5x10^3uL (1.8-7.7) Lymphocytes # (Auto) 0.7x10^3/uL (1.0-4.8) Monocytes # (Auto) 0.2x10^3/uL (0.0-1.1) Eosinophils # (Auto) 0.1x10^3/uL (0.0-0.7) Basophils # (Auto) 0.0x10^3/uL (0.0-0.2) Medications Current Medications Fentanyl Citrate (Fentanyl 2ml Vial) 50 mcg 1X ONCE IV Last administered on 01:11; Start 10/18/16 at 01:00; Stop 10/18/16 at 01:01; Status DC Ondansetron HCl 4 mg 4 mg 1X ONCE IV Last administered on 10/18/16 01:11; Start 10/18/16 at 01:00; Stop 10/18/16 at 01:01; Status DC Sodium Chloride (Iv Sodium Chloride 0.9% 500ml Bag) 500 ml @ 500 mls/hr 1X ONCE IV Last administered on 10/18/16 01:12; Start 10/18/16 at 01:00; Stop at 01:59; Status DC Iohexol (Omnipaque 300 Mg/ml) 75 ml 1X ONCE IV Last administered on 10/18/16 02:18; Start 10/18/16 at 02:00; Stop 10/18/16 at 02:01; Status DC Hydromorphone HCl (Dilaudid) 1 mg 1X ONCE IV Last administered on 10/18/16 02: 50; Start 10/18/16 at 03:00; Stop 10/18/16 at 03:01; Status DC Ondansetron HCl (Zofran) 4 mg PRN Q8HRS PRN IV NAUSEA/VOMITING; Start 10/18/16 at 03:15; Stop 10/19/16 at 03:14; Status DC Hydromorphone HCl 1 mg 1 mg PRN Q2HR PRN IV SEVERE PAIN Last administered on 17:59; Start 10/18/16 at 03:15 Ciprofloxacin Lactate 200 ml @ 200 mls/hr [id number] IV ; Start 10/18/16 at 06:00; Status Cancel Metronidazole 100 ml @ 100 mls/hr 1X ONCE IV Last administered on 10/18/16 03 :45; Start 10/18/16 at 03:45; Stop 10/18/16 at 04:44; Status DC Ciprofloxacin Lactate 100 ml @ 100 mls/hr Q1H IV Last administered on 03:46; Start 10/18/16 at 04:00; Stop 10/18/16 at 05:59; Status DC Ciprofloxacin Lactate (Cipro 400mg Premix) 200 ml @ 200 mls/hr [id number] IV Last administered on 10/19/16 17:57; Start 10/18/16 at 18:00 Lidocaine (Lidoderm) 1 patch DAILY TD Last administered on 10/19/16 08:50; Start 10/18/16 at 09:00 Cyclobenzaprine HCl (Flexeril) 10 mg PRN Q6HRS PRN PO MUSCLE SPASMS Last administered on 10/18/16 21:01; Start 10/18/16 at 08:45 Alprazolam (Xanax) 1 mg PRN DAILY PRN PO ANXIETY Last administered on 10/18/16 21:01; Start 10/18/16 at 08:45 Aspirin (Children'S Aspirin) 81 mg DAILY PO Last administered on 10/19/16 08:50 ; Start 10/18/16 at 09:00 Cetirizine HCl (Zyrtec) 10 mg DAILY PO Last administered on 10/19/16 08:49; Start 10/18/16 at 09:00 Acetaminophen/ Hydrocodone Bitart (Lortab 5/325) 1 tab PRN Q6HRS PRN PO PAIN Last administered on 10/19/16 10:20; Start 10/18/16 at 08:45 Levothyroxine Sodium (Synthroid) 125 mcg DAILY07 PO Last administered on 05:09; Start 10/18/16 at 09:00 Losartan Potassium (Cozaar) 50 mg HS PO Last administered on 10/18/16 21:03; Start 10/18/16 at 21:00 Methocarbamol (Robaxin) 500 mg HS PO Last administered on 10/18/16 21:02; Start 10/18/16 at 21:00 Niacin (Slo-Niacin) 500 mg HS PO Last administered on 10/18/16 21:03; Start 10/18/16 at 21:00 Tramadol HCl (Ultram) 50 mg DAILY PO Last administered on 10/19/16 08:49; Start 10/18/16 at 09:00 Trazodone HCl (Desyrel) 50 mg PRN DAILY PRN PO MIGHA Last administered on 21:06; Start 10/18/16 at 08:45 Fluticasone Propionate (Flonase) 2 spray DAILY NS Last administered on 08:51; Start 10/18/16 at 09:00 Fluoxetine HCl (Prozac) 40 mg DAILY PO Last administered on 10/19/16 08:47; Start 10/18/16 at 09:00 Docusate Sodium (Colace) 100 mg DAILY PO Last administered on 10/19/16 08:48; Start 10/18/16 at 09:00 Methylprednisolone Acetate (Depo-Medrol 40mg Vial) 40 mg 1X ONCE IM Last administered on 10/18/16 18:45; Start 10/18/16 at 10:00; Stop 10/18/16 at 10:01; Status DC Bupivacaine HCl (Sensorcaine-Mpf 0.25%) 10 ml 1X ONCE IJ Last administered on 10/18/16 18:45; Start 10/18/16 at 10:00; Stop 10/18/16 at 10:01; Status DC Magnesium Hydroxide (Milk Of Magnesia) 2,400 mg 1X ONCE PO Last administered on 10/19/16 14:20; Start 10/19/16 at 11:30; Stop 10/19/16 at 11:31; Status DC Magnesium Hydroxide (Milk Of Magnesia) 2,400 mg PRN DAILY PRN PO CONSTIPATION; Start 10/19/16 at 11:00 Polyethylene Glycol (miraLAX PACKET) 17 gm 1X ONCE PO Last administered on 10/19 14:20; Start 10/19/16 at 11:30; Stop 10/19/16 at 11:31; Status DC Polyethylene Glycol (miraLAX PACKET) 17 gm PRN DAILY PRN PO CONSTIPATION; Start 10/19/16 at 11:00 Active Scripts Active [place] 5-325 Tablet (Acetaminophen/Hydrocodone Bitart) 1 Each Tablet 1 Tab PO PRN Q6HRS PRN Lidoderm (Lidocaine) 700 Mg Adh..patch 1 Patch TP DAILY Reported Sumavel Dosepro (Sumatriptan Succinate) 6 Mg/0.5 Ml Ndl.fr.inj 6 Mg SQ PRN Tramadol Hcl 50 Mg Tablet 50 Mg PO DAILY Trazodone Hcl 50 Mg Tablet 50 Mg PO DAILY PRN Melatonin 5 Mg Tab.rapdis 5 Mg PO DAILY Cyclobenzaprine Hcl 10 Mg Tablet 1 Tab PO TID Krill Oil 1,000 Mg Softgel (Krill/Om3/Dha/Epa/Om6/Lip/Astx) 1 Each Capsule 1 Each PO DAILY Niaspan (Niacin) 500 Mg Tab.er.24h 500 Mg PO HS Flunisolide 25 Ml [place] 1 [place] NS DAILY One spray per nostril Zyrtec (Cetirizine Hcl) 10 Mg Tablet 1 Tab PO DAILY Fish Oil ([place]-3 Fatty Acids) 500 Mg Capsule.dr 1,400 Mg PO Aspirin 81 Mg Tab.chew 81 Mg PO Fluoxetine Hcl 20 Mg Tablet 40 Mg PO DAILY Zolpidem Tartrate 10 Mg Tablet 10 Mg PO Robaxin (Methocarbamol) 500 Mg Tablet 500 Mg PO HS Losartan Potassium 50 Mg Tablet 50 Mg PO HS Levothyroxine Sodium 125 Mcg Tablet 125 Mcg PO DAILY Alprazolam 1 Mg Tablet 1 Mg PO DAILY PRN Vitals/I & O Vital Sign - Last 24 Hours 10/18/16 10/18/16 10/18/16 10/18/16 19:00 20:00 21:03 21:03 Temp 97.7 97.7 Pulse 84 87 Resp 18 B/P 157/92 153/89 Pulse Ox 89 O2 Delivery Room Air Room Air Room Air 10/18/16 10/18/16 10/19/16 10/19/16 22:03 23:00 03:00 07:00 Temp 97.9 97.3 98.4 97.9 97.3 98.4 Pulse 107 98 71 Resp 22 20 20 B/P 154/73 150/81 122/66 Pulse Ox 90 92 92 O2 Delivery Nasal Cannula Nasal Cannula Room Air O2 Flow Rate 2.0 2.0 2.0 10/19/16 10/19/16 10/19/16 10/19/16 08:00 08:49 10:20 10:20 Resp 18 20 20 Pulse Ox 92 92 92 O2 Delivery Room Air Nasal Cannula Room Air Room Air O2 Flow Rate 2.0 10/19/16 10/19/16 10/19/16 10/19/16 10:26 11:20 11:25 14:11 Temp 98.5 98.5 Pulse 77 Resp 22 20 21 20 B/P 139/66 Pulse Ox 92 91 91 91 O2 Delivery Room Air Room Air Room Air Room Air 10/19/16 10/19/16 10/19/16 14:41 14:47 17:59 Temp 98.4 98.4 Pulse 76 Resp 20 20 20 B/P 121/55 Pulse Ox 92 92 92 O2 Delivery Room Air Room Air Room Air O2 Flow Rate 2.0 Intake and Output 10/18/16 10/18/16 10/19/16 15:00 23:00 07:00 Intake Total 650 ml 1150 ml 1100 ml Output Total 700 ml Balance 650 ml 450 ml 1100 ml MARIBEL COFFMAN MD Oct 19, 2016 18:23
[2016-10-19 19:00] VITALS: BP 132/60
[2016-10-19] MEDS: METHOCARBAMOL 500 MG TABLET PO SCH (21:20)
[2016-10-19] MEDS: CYCLOBENZAPRINE 10 MG TABLET. PO PRN (21:20)
[2016-10-19] MEDS: NIACIN ER 500 MG TABLET.ER PO SCH (21:20)
[2016-10-19] MEDS: ALPRAZOLAM 1 MG TABLET PO PRN (21:21)
[2016-10-19] MEDS: traZODone 50 MG TABLET. PO PRN (21:21)
[2016-10-19] MEDS: LOSARTAN POTASSIUM 50 MG TABLET. PO SCH (21:21)
[2016-10-19 23:00] VITALS: BP 105/49
[2016-10-20] MEDS: LEVOTHYROXINE 125 MCG TABLET PO SCH (05:34)
[2016-10-20] MEDS: CIPROFLOXACIN 400MG PREMIX 200 ML IV SCH (05:34)
[2016-10-20] MEDS: CYCLOBENZAPRINE 10 MG TABLET. PO PRN (05:34)
[2016-10-20] MEDS: HYDROCODONE/APAP 5/325MG TABLET. PO PRN (05:39)
[2016-10-20 07:00] VITALS: BP 106/54
[2016-10-20] MEDS: DOCUSATE SODIUM 100 MG CAPSULE. PO SCH (09:01)
[2016-10-20] MEDS: ASPIRIN CHEWABLE 81 MG TABLET. PO SCH (09:01)
[2016-10-20] MEDS: FLUTICASONE 50MCG/NASAL SPRAY 16GM BOTTLE. NS SCH (09:01)
[2016-10-20] MEDS: CETIRIZINE HCL 10 MG TABLET. PO SCH (09:01)
[2016-10-20] MEDS: FLUOXETINE HCL 20 MG CAPSULE. PO SCH (09:01)
[2016-10-20] MEDS: TRAMADOL 50 MG TABLET. PO SCH (09:01)
[2016-10-20] MEDS: LIDOCAINE (700MG/PATCH) PATCH. TD SCH (09:02)
--- NOTE | 2016-10-20 09:45 | PDOC ---
Subjective: Subjective: No pain w/ Lidoderm Eating well. No BM - has Miralax and MoM ordered, doesn't want anything else. Objective: Vital Signs: Vital Signs Date Time Temp Pulse Resp B/P Pulse Ox O2 Delivery O2 Flow Rate FiO2 10/20/16 07:00 97.9 61 20 106/54 92 Room Air 97.9 10/20/16 05:39 2.0 PE: GEN: NAD, up to chair LUNGS: CTAB anteriorly HEART: RRR ABD: S/ND/NT, obese, Lidoderm LLQ NEURO/PSYCH: A & O 3 A/P: LLQ pain -up to date on colonoscopy (h/o polyps, diverticulosis), h/o IBS GERD, h/o NSAID ulcer -on PPI Constipation -has Miralax, MoM -- Improved w/ Lidoderm patch. AYANA CUEVAS Oct 20, 2016 09:45
--- NOTE | 2016-10-20 15:26 | PDOC3 ---
Discharge Summary Visit Information Date of Admission: Oct 18, 2016 Date of Discharge: Oct 20, 2016 Admitting Diagnosis: abd pain Final Diagnosis Acute abd pain, muscle strain hx divertilosis, Morbid obesity, BMI 53 depression and anxiety and insomnia prolonged grief episode almost 3 years Left lower pain, reproducible, and with exertion of abd muscles. urge incontinence Problems Medical Problems: (1) Abdominal pain Status: Acute Brief Hospital Course Allergies Allergies Coded Allergies Type Severity Reaction Last Updated Verified Fenofibrate Nanocrystallized Allergy Intermediate migraines 09/30/14 Yes celecoxib Allergy Intermediate 09/30/14 Yes colesevelam Allergy Intermediate 09/30/14 Yes dimenhydrinate Allergy Intermediate 09/30/14 Yes duloxetine Allergy Intermediate 09/30/14 Yes metoclopramide Allergy Intermediate itching 09/30/14 Yes pantoprazole sodium Allergy Intermediate rash 09/30/14 Yes pregabalin Allergy Intermediate rash 09/30/14 Yes vilazodone hydrochloride Allergy Intermediate 09/30/14 Yes NSAIDS (Non-Steroidal Anti-Inflamma Adverse Reaction Intermediate ULCERS Yes [id number] Reductase Inhibitor Adverse Reaction Intermediate INCREASED LIVER ENZYMES 09/30/14 Yes Vital Signs Vital Signs Date Time Temp Pulse Resp B/P Pulse Ox O2 Delivery O2 Flow Rate FiO2 10/20/16 08:00 Room Air 10/20/16 07:00 97.9 61 20 106/54 92 97.9 10/20/16 05:39 2.0 Lab Results Laboratory Tests Test 10/19/16 03:41 10/19/16 04:30 Sodium Level 141mmol/L (136-145) Potassium Level 4.9mmol/L (3.5-5.1) Chloride Level 105mmol/L (98-107) Carbon Dioxide Level 29mmol/L (21-32) Anion Gap 7 (6-14) Blood Urea Nitrogen 7mg/dL (7-20) Creatinine 0.9mg/dL (0.6-1.0) Estimated GFR (Cockcroft-Gault) 64.5 Glucose Level 127mg/dL (70-99) Calcium Level 9.6mg/dL (8.5-10.1) White Blood Count 4.6x10^3/uL (4.0-11.0) Red Blood Count 4.33x10^6/uL (3.50-5.40) Hemoglobin 11.8g/dL (12.0-15.5) Hematocrit 36.6% (36.0-47.0) Mean Corpuscular Volume 85fL (79-100) Mean Corpuscular Hemoglobin 27pg (25-35) Mean Corpuscular Hemoglobin Concent 32g/dL (31-37) Red Cell Distribution Width 13.3% (11.5-14.5) Platelet Count 198x10^3/uL (140-400) Neutrophils (%) (Auto) 76% (31-73) Lymphocytes (%) (Auto) 15% (24-48) Monocytes (%) (Auto) 5% (0-9) Eosinophils (%) (Auto) 3% (0-3) Basophils (%) (Auto) 1% (0-3) Neutrophils # (Auto) 3.5x10^3uL (1.8-7.7) Lymphocytes # (Auto) 0.7x10^3/uL (1.0-4.8) Monocytes # (Auto) 0.2x10^3/uL (0.0-1.1) Eosinophils # (Auto) 0.1x10^3/uL (0.0-0.7) Basophils # (Auto) 0.0x10^3/uL (0.0-0.2) Brief Hospital Course Ms. Ng is a 55 old admit with abd pain, strain, abd better with lidoderm patch, tramadol Dr. marco purvis and injected painful left sacroiliac joint area with marcaine and depomedrol solution no change in stool. pt wanted GI consult, stable diverticulosis seen on CT, DC home I discussed her depression and prolonged grief over the loss of her son almost three years ago, and she left the RN a note on DC informing me that I should not tell her how long she should grieve. She reports "unable to get of the couch" for over 2 years, grieving only Discharge Information Condition at Discharge: Improved Follow Up: Weeks Disposition/Orders: D/C to Home Scheduled Cetirizine Hcl (Zyrtec) 1 TAB PO DAILY (Reported) Cyclobenzaprine Hcl (Cyclobenzaprine Hcl) 1 TAB PO TID (Reported) Flunisolide (Flunisolide) 1 SPRAY NS DAILY (Reported) Fluoxetine Hcl (Fluoxetine Hcl) 40 MG PO DAILY (Reported) Krill/Om3/Dha/Epa/Om6/Lip/Astx (Krill Oil 1,000 Mg Softgel) 1 EACH PO DAILY ( Reported) Levothyroxine Sodium (Levothyroxine Sodium) 125 MCG PO DAILY (Reported) Lidocaine (Lidoderm) 1 PATCH TP DAILY Losartan Potassium (Losartan Potassium) 50 MG PO HS (Reported) Melatonin (Melatonin) 5 MG PO DAILY (Reported) Methocarbamol (Robaxin) 500 MG PO HS (Reported) Niacin (Niaspan) 500 MG PO HS (Reported) Tramadol Hcl (Tramadol Hcl) 50 MG PO DAILY (Reported) Scheduled PRN Alprazolam (Alprazolam) 1 MG PO DAILY PRN PRN ANXIETY (Reported) Hydrocodone/[place] 5-325 ([place] 5-325 Tablet) 1 TAB PO PRN Q6HRS PRN PRN PAIN Sumatriptan Succinate (Sumavel Dosepro) 6 MG SQ PRN MIGRAINE HEADACHE (Reported ) Trazodone Hcl (Trazodone Hcl) 50 MG PO DAILY PRN PRN MIGRAINE HEADACHE (Reported ) Miscellaneous Medications Aspirin (Aspirin) 81 MG PO (Reported) [place]-3 Fatty Acids (Fish Oil) 1,400 MG PO (Reported) Zolpidem Tartrate (Zolpidem Tartrate) 10 MG PO (Reported) Patient Instructions Patient Instructions Time > 40 min LUCIO MCCAULEY MD Oct 20, 2016 15:26
--- NOTE | 2016-10-20 16:23 | PDOC ---
PROGRESS NOTES Subjective Subjective She feels much better. Objective Objective Vital Signs Date Time Temp Pulse Resp B/P Pulse Ox O2 Delivery O2 Flow Rate FiO2 10/20/16 08:00 Room Air 10/20/16 07:00 97.9 61 20 106/54 92 97.9 10/20/16 05:39 2.0 Intake and Output 10/20/16 07:00 Intake Total 1350 ml Output Total 2300 ml Balance -950 ml Intake Oral 1150 ml IV Total 200 ml Output Urine Total 2300 ml # Voids 5 Physical Exam Physical Exam She is alert and comfortable sitting up in chair. Assessment Assessment Problems Medical Problems: (1) Abdominal pain Status: Acute Plan Plan of Care Agree with plans for home when medically stable. Comment Review of Relevant I have reviewed the following items radha (where applicable) has been applied. Labs Laboratory Tests Test 10/19/16 03:41 10/19/16 04:30 Sodium Level 141mmol/L (136-145) Potassium Level 4.9mmol/L (3.5-5.1) Chloride Level 105mmol/L (98-107) Carbon Dioxide Level 29mmol/L (21-32) Anion Gap 7 (6-14) Blood Urea Nitrogen 7mg/dL (7-20) Creatinine 0.9mg/dL (0.6-1.0) Estimated GFR (Cockcroft-Gault) 64.5 Glucose Level 127mg/dL (70-99) Calcium Level 9.6mg/dL (8.5-10.1) White Blood Count 4.6x10^3/uL (4.0-11.0) Red Blood Count 4.33x10^6/uL (3.50-5.40) Hemoglobin 11.8g/dL (12.0-15.5) Hematocrit 36.6% (36.0-47.0) Mean Corpuscular Volume 85fL (79-100) Mean Corpuscular Hemoglobin 27pg (25-35) Mean Corpuscular Hemoglobin Concent 32g/dL (31-37) Red Cell Distribution Width 13.3% (11.5-14.5) Platelet Count 198x10^3/uL (140-400) Neutrophils (%) (Auto) 76% (31-73) Lymphocytes (%) (Auto) 15% (24-48) Monocytes (%) (Auto) 5% (0-9) Eosinophils (%) (Auto) 3% (0-3) Basophils (%) (Auto) 1% (0-3) Neutrophils # (Auto) 3.5x10^3uL (1.8-7.7) Lymphocytes # (Auto) 0.7x10^3/uL (1.0-4.8) Monocytes # (Auto) 0.2x10^3/uL (0.0-1.1) Eosinophils # (Auto) 0.1x10^3/uL (0.0-0.7) Basophils # (Auto) 0.0x10^3/uL (0.0-0.2) Medications Current Medications Fentanyl Citrate (Fentanyl 2ml Vial) 50 mcg 1X ONCE IV Last administered on 01:11; Start 10/18/16 at 01:00; Stop 10/18/16 at 01:01; Status DC Ondansetron HCl 4 mg 4 mg 1X ONCE IV Last administered on 10/18/16 01:11; Start 10/18/16 at 01:00; Stop 10/18/16 at 01:01; Status DC Sodium Chloride (Iv Sodium Chloride 0.9% 500ml Bag) 500 ml @ 500 mls/hr 1X ONCE IV Last administered on 10/18/16 01:12; Start 10/18/16 at 01:00; Stop at 01:59; Status DC Iohexol (Omnipaque 300 Mg/ml) 75 ml 1X ONCE IV Last administered on 10/18/16 02:18; Start 10/18/16 at 02:00; Stop 10/18/16 at 02:01; Status DC Hydromorphone HCl (Dilaudid) 1 mg 1X ONCE IV Last administered on 10/18/16 02: 50; Start 10/18/16 at 03:00; Stop 10/18/16 at 03:01; Status DC Ondansetron HCl (Zofran) 4 mg PRN Q8HRS PRN IV NAUSEA/VOMITING; Start 10/18/16 at 03:15; Stop 10/19/16 at 03:14; Status DC Hydromorphone HCl 1 mg 1 mg PRN Q2HR PRN IV SEVERE PAIN Last administered on 17:59; Start 10/18/16 at 03:15; Stop 10/20/16 at 13:05; Status DC Ciprofloxacin Lactate 200 ml @ 200 mls/hr [id number] IV ; Start 10/18/16 at 06:00; Status Cancel Metronidazole 100 ml @ 100 mls/hr 1X ONCE IV Last administered on 10/18/16 03 :45; Start 10/18/16 at 03:45; Stop 10/18/16 at 04:44; Status DC Ciprofloxacin Lactate 100 ml @ 100 mls/hr Q1H IV Last administered on 03:46; Start 10/18/16 at 04:00; Stop 10/18/16 at 05:59; Status DC Ciprofloxacin Lactate (Cipro 400mg Premix) 200 ml @ 200 mls/hr [id number] IV Last administered on 10/20/16 05:34; Start 10/18/16 at 18:00; Stop 10/20/16 at 13:05; Status DC Lidocaine (Lidoderm) 1 patch DAILY TD Last administered on 10/20/16 09:02; Start 10/18/16 at 09:00; Stop 10/20/16 at 13:05; Status DC Cyclobenzaprine HCl (Flexeril) 10 mg PRN Q6HRS PRN PO MUSCLE SPASMS Last administered on 10/20/16 05:34; Start 10/18/16 at 08:45; Stop 10/20/16 at 13:05; Status DC Alprazolam (Xanax) 1 mg PRN DAILY PRN PO ANXIETY Last administered on 10/19/16 21:21; Start 10/18/16 at 08:45; Stop 10/20/16 at 13:05; Status DC Aspirin (Children'S Aspirin) 81 mg DAILY PO Last administered on 10/20/16 09:01 ; Start 10/18/16 at 09:00; Stop 10/20/16 at 13:05; Status DC Cetirizine HCl (Zyrtec) 10 mg DAILY PO Last administered on 10/20/16 09:01; Start 10/18/16 at 09:00; Stop 10/20/16 at 13:05; Status DC Acetaminophen/ Hydrocodone Bitart (Lortab 5/325) 1 tab PRN Q6HRS PRN PO PAIN Last administered on 10/20/16 05:39; Start 10/18/16 at 08:45; Stop 10/20/16 at 13: 05; Status DC Levothyroxine Sodium (Synthroid) 125 mcg DAILY07 PO Last administered on 05:34; Start 10/18/16 at 09:00; Stop 10/20/16 at 13:05; Status DC Losartan Potassium (Cozaar) 50 mg HS PO Last administered on 10/19/16 21:21; Start 10/18/16 at 21:00; Stop 10/20/16 at 13:05; Status DC Methocarbamol (Robaxin) 500 mg HS PO Last administered on 10/19/16 21:20; Start 10/18/16 at 21:00; Stop 10/20/16 at 13:05; Status DC Niacin (Slo-Niacin) 500 mg HS PO Last administered on 10/19/16 21:20; Start 10/18/16 at 21:00; Stop 10/20/16 at 13:05; Status DC Tramadol HCl (Ultram) 50 mg DAILY PO Last administered on 10/20/16 09:01; Start 10/18/16 at 09:00; Stop 10/20/16 at 13:05; Status DC Trazodone HCl (Desyrel) 50 mg PRN DAILY PRN PO MIGHA Last administered on 21:21; Start 10/18/16 at 08:45; Stop 10/20/16 at 13:05; Status DC Fluticasone Propionate (Flonase) 2 spray DAILY NS Last administered on 09:01; Start 10/18/16 at 09:00; Stop 10/20/16 at 13:05; Status DC Fluoxetine HCl (Prozac) 40 mg DAILY PO Last administered on 10/20/16 09:01; Start 10/18/16 at 09:00; Stop 10/20/16 at 13:05; Status DC Docusate Sodium (Colace) 100 mg DAILY PO Last administered on 10/20/16 09:01; Start 10/18/16 at 09:00; Stop 10/20/16 at 13:05; Status DC Methylprednisolone Acetate (Depo-Medrol 40mg Vial) 40 mg 1X ONCE IM Last administered on 10/18/16 18:45; Start 10/18/16 at 10:00; Stop 10/18/16 at 10:01; Status DC Bupivacaine HCl (Sensorcaine-Mpf 0.25%) 10 ml 1X ONCE IJ Last administered on 10/18/16 18:45; Start 10/18/16 at 10:00; Stop 10/18/16 at 10:01; Status DC Magnesium Hydroxide (Milk Of Magnesia) 2,400 mg 1X ONCE PO Last administered on 10/19/16 14:20; Start 10/19/16 at 11:30; Stop 10/19/16 at 11:31; Status DC Magnesium Hydroxide (Milk Of Magnesia) 2,400 mg PRN DAILY PRN PO CONSTIPATION; Start 10/19/16 at 11:00; Stop 10/20/16 at 13:05; Status DC Polyethylene Glycol (miraLAX PACKET) 17 gm 1X ONCE PO Last administered on 10/19 14:20; Start 10/19/16 at 11:30; Stop 10/19/16 at 11:31; Status DC Polyethylene Glycol (miraLAX PACKET) 17 gm PRN DAILY PRN PO CONSTIPATION; Start 10/19/16 at 11:00; Stop 10/20/16 at 13:05; Status DC Active Scripts Active [place] 5-325 Tablet (Acetaminophen/Hydrocodone Bitart) 1 Each Tablet 1 Tab PO PRN Q6HRS PRN Lidoderm (Lidocaine) 700 Mg Adh..patch 1 Patch TP DAILY Reported Sumavel Dosepro (Sumatriptan Succinate) 6 Mg/0.5 Ml Ndl.fr.inj 6 Mg SQ PRN Tramadol Hcl 50 Mg Tablet 50 Mg PO DAILY Trazodone Hcl 50 Mg Tablet 50 Mg PO DAILY PRN Melatonin 5 Mg Tab.rapdis 5 Mg PO DAILY Cyclobenzaprine Hcl 10 Mg Tablet 1 Tab PO TID Krill Oil 1,000 Mg Softgel (Krill/Om3/Dha/Epa/Om6/Lip/Astx) 1 Each Capsule 1 Each PO DAILY Niaspan (Niacin) 500 Mg Tab.er.24h 500 Mg PO HS Flunisolide 25 Ml Proctor 1 Proctor NS DAILY One spray per nostril Zyrtec (Cetirizine Hcl) 10 Mg Tablet 1 Tab PO DAILY Fish Oil ([place]-3 Fatty Acids) 500 Mg Capsule.dr 1,400 Mg PO Aspirin 81 Mg Tab.chew 81 Mg PO Fluoxetine Hcl 20 Mg Tablet 40 Mg PO DAILY Zolpidem Tartrate 10 Mg Tablet 10 Mg PO Robaxin (Methocarbamol) 500 Mg Tablet 500 Mg PO HS Losartan Potassium 50 Mg Tablet 50 Mg PO HS Levothyroxine Sodium 125 Mcg Tablet 125 Mcg PO DAILY Alprazolam 1 Mg Tablet 1 Mg PO DAILY PRN Vitals/I & O Vital Sign - Last 24 Hours 10/19/16 10/19/16 10/19/16 10/19/16 17:59 18:29 19:00 20:00 Temp 98.3 98.3 Pulse 78 Resp 20 18 20 B/P 132/60 Pulse Ox 92 95 O2 Delivery Room Air Room Air Nasal Cannula Room Air O2 Flow Rate 2.0 10/19/16 10/19/16 10/19/16 10/20/16 21:21 21:21 23:00 05:39 Temp 97.9 97.9 Pulse 78 74 Resp 18 20 20 B/P 132/60 105/49 Pulse Ox 95 92 92 O2 Delivery Room Air Nasal Cannula Room Air O2 Flow Rate 2.0 10/20/16 10/20/16 10/20/16 06:46 07:00 08:00 Temp 97.9 97.9 Pulse 61 Resp 18 20 B/P 106/54 Pulse Ox 92 92 O2 Delivery Room Air Room Air Room Air Intake and Output 10/19/16 10/19/16 10/20/16 15:00 23:00 07:00 Intake Total 750 ml 600 ml Output Total 1200 ml 1100 ml Balance -1200 ml 750 ml -500 ml MARIBEL COFFMAN MD Oct 20, 2016 16:23
== END 2016-10-20 11:45 | disposition still patient (30) | DRG 563 ==
LOC: ER 00:23 → 5 NORTH 02:45
PROVIDERS: ADMIT Internal Medicine; ATTEND Internal Medicine
DX: S39.011A Strain of muscle, fascia and tendon of abdomen, initial encounter (principal); Z68.43 Body mass index [BMI] 50.0-59.9, adult; X58.XXXA Exposure to other specified factors, initial encounter; Y93.89 Activity, other specified; Y92.89 Other specified places as the place of occurrence of the external cause; Y99.8 Other external cause status; E03.9 Hypothyroidism, unspecified; E66.01 Morbid (severe) obesity due to excess calories; E78.00 Pure hypercholesterolemia, unspecified; E78.5 Hyperlipidemia, unspecified; F32.9 Major depressive disorder, single episode, unspecified; F41.9 Anxiety disorder, unspecified; F43.29 Adjustment disorder with other symptoms; G43.909 Migraine, unspecified, not intractable, without status migrainosus; K21.9 Gastro-esophageal reflux disease without esophagitis; K57.30 Diverticulosis of large intestine without perforation or abscess without bleeding; M94.0 Chondrocostal junction syndrome [Tietze]; N39.41 Urge incontinence; Z82.3 Family history of stroke; Z82.49 Family history of ischemic heart disease and other diseases of the circulatory system; Z86.010 Personal history of colon polyps; Z86.73 Personal history of transient ischemic attack (TIA), and cerebral infarction without residual deficits; Z87.891 Personal history of nicotine dependence; Z90.49 Acquired absence of other specified parts of digestive tract; Z96.652 Presence of left artificial knee joint; Z87.11 Personal history of peptic ulcer disease
CPT/HCPCS: 36415; 74177; 80048; 85027; 96361; 96365; 96366; 96368; 96375; J0744; J1030; J1170; J2405; J3010; J3490; J7040; Q9967; 99285-25

== ENCOUNTER 2017-02-24 07:06 | Emergency (ER) | payer SELFPAY ==
[~2017-02-24] VITALS: Ht 170.2 cm; Wt 136.1 kg
[~2017-02-24 07:06] MED LIST changes: +ASPI-630 PO; -ASPI81TA2 PO; +MELA5TAB20 PO; -MELA5TAB4 PO
[2017-02-24] MEDS ORDERED: fentaNYL PF VIAL 100 MCG/2 ML VIAL IV ONE (07:30)
[2017-02-24] MEDS ORDERED: ONDANSETRON PF 4 MG/2 ML VIAL. IV ONE (07:30)
--- NOTE | 2017-02-24 07:39 | PHYS DOC ---
Past Medical History Past Medical History: Diverticulitis, Diverticulosis, High Cholesterol, Hypertension, Hypothyroid, Migraines, Stroke Additional Past Medical Histor: FATTY LIVER DISEASE, CVA, ULCERS Past Surgical History: Appendectomy, Cholecystectomy, , Hysterectomy, Knee Replacement Alcohol Use: None Drug Use: None Adult General Chief Complaint Chief Complaint: HEADACHE HPI HPI Patient is a 56 year old female history of chronic daily migraines who presents with persistent headache for the past 3 days, dizziness and slurring of speech upon waking this morning. Patient states she just started new migraine medication weeks and is gradually increased her dose to 4 pills nightly. Patient reports feeling drug lightheaded dizzy with slurring of speech after taking medication. Symptoms continue after taking medications last evening. Patient also takes Ambien at night but does not recall taking Ambien last evening. Patient contacted [facility] neurologist to prescribe medication was unable to follow neurologist Headache is described as dull throbbing [id number] and similar to previous grandson pattering location and severity. This associated with light sensitivity and nausea. Patient denies vomiting. No neck pain stiffness rash, focal extremity weakness or loss of sensation. Denies abdominal pain chest pain , palpitations leg pain and swelling. No other acute symptoms or complaints. Review of Systems Review of Systems ROS as per HPI. Current Medications Current Medications Current Medications Medications (Trade) Dose Ordered Sig/Aretha Start Time Stop Time Status Last Admin Dose Admin Fentanyl Citrate (Fentanyl 2ml Vial) 150 mcg 1X ONCE 02/24/17 09:30 02/24/17 09:31 DC 02/24/17 09:30 150 MCG Ondansetron HCl (Zofran Odt) 4 mg 1X ONCE 02/24/17 09:30 02/24/17 09:31 DC 02/24/17 09:30 4 MG Ondansetron HCl (Zofran) 8 mg 1X ONCE 02/24/17 07:30 02/24/17 09:23 DC Allergies Allergies Allergies Coded Allergies Type Severity Reaction Last Updated Verified Fenofibrate Nanocrystallized Allergy Intermediate migraines 09/30/14 Yes celecoxib Allergy Intermediate 09/30/14 Yes colesevelam Allergy Intermediate 09/30/14 Yes dimenhydrinate Allergy Intermediate 09/30/14 Yes duloxetine Allergy Intermediate 09/30/14 Yes metoclopramide Allergy Intermediate itching 09/30/14 Yes pantoprazole sodium Allergy Intermediate rash 09/30/14 Yes pregabalin Allergy Intermediate rash 09/30/14 Yes vilazodone hydrochloride Allergy Intermediate 09/30/14 Yes NSAIDS (Non-Steroidal Anti-Inflamma Adverse Reaction Intermediate ULCERS Yes Iosbcyv-Dqn-Tre Reductase Inhibitor Adverse Reaction Intermediate INCREASED LIVER ENZYMES 09/30/14 Yes Physical Exam Physical Exam Constitutional: Well developed, well nourished, no acute distress, non-toxic appearance. [] HENT: Normocephalic, atraumatic, bilateral external ears normal, oropharynx moist, no oral exudates, nose normal. [] Eyes: PERRLA, EOMI, conjunctiva normal, no discharge. [] Neck: Normal range of motion, no tenderness, supple, no meningismus. [] Cardiovascular:Heart rate regular rhythm, no murmur [] Lungs & Thorax: Bilateral breath sounds clear to auscultation [] Abdomen: Bowel sounds normal, soft, no tenderness, no masses, no pulsatile masses. [] Skin: Warm, dry, no erythema, no rash. [] Back: No tenderness, no CVA tenderness. [] Extremities: No tenderness, no cyanosis, no clubbing, ROM intact, no edema. [] Neurologic: Alert and oriented X 3, slurring of speech, cranial nerves II through XII otherwise intact, normal motor function, normal sensory function, no focal deficits noted. [] Psychologic: Affect, dysphoric [] Current Patient Data Vital Signs Vital Signs Date Time Temp Pulse Resp B/P (MAP) Pulse Ox O2 Delivery O2 Flow Rate FiO2 02/24/17 09:30 16 96 Room Air 02/24/17 07:22 98.1 81 170/85 (113) 98.1 Lab Values Laboratory Tests Test 02/24/17 08:40 White Blood Count 7.0 x10^3/uL (4.0-11.0) Red Blood Count 4.61 x10^6/uL (3.50-5.40) Hemoglobin 13.0 g/dL (12.0-15.5) Hematocrit 38.9 % (36.0-47.0) Mean Corpuscular Volume 84 fL (79-100) Mean Corpuscular Hemoglobin 28 pg (25-35) Mean Corpuscular Hemoglobin Concent 33 g/dL (31-37) Red Cell Distribution Width 12.9 % (11.5-14.5) Platelet Count 218 x10^3/uL (140-400) Neutrophils (%) (Auto) 72 % (31-73) Lymphocytes (%) (Auto) 20 % (24-48) L Monocytes (%) (Auto) 6 % (0-9) Eosinophils (%) (Auto) 1 % (0-3) Basophils (%) (Auto) 1 % (0-3) Neutrophils # (Auto) 5.0 x10^3uL (1.8-7.7) Lymphocytes # (Auto) 1.4 x10^3/uL (1.0-4.8) Monocytes # (Auto) 0.4 x10^3/uL (0.0-1.1) Eosinophils # (Auto) 0.1 x10^3/uL (0.0-0.7) Basophils # (Auto) 0.1 x10^3/uL (0.0-0.2) Sodium Level 141 mmol/L (136-145) Potassium Level 4.3 mmol/L (3.5-5.1) Chloride Level 105 mmol/L (98-107) Carbon Dioxide Level 30 mmol/L (21-32) Anion Gap 6 (6-14) Blood Urea Nitrogen 7 mg/dL (7-20) Creatinine 1.0 mg/dL (0.6-1.0) Estimated GFR (Cockcroft-Gault) 56.9 BUN/Creatinine Ratio 7 (6-20) Glucose Level 102 mg/dL (70-99) H Calcium Level 10.2 mg/dL (8.5-10.1) H Total Bilirubin 0.4 mg/dL (0.2-1.0) Aspartate Amino Transferase (AST) 37 U/L (15-37) Alanine Aminotransferase (ALT) 52 U/L (14-59) Alkaline Phosphatase 176 U/L (46-116) H Total Protein 7.7 g/dL (6.4-8.2) Albumin 3.7 g/dL (3.4-5.0) Albumin/Globulin Ratio 0.9 (1.0-1.7) L Laboratory Tests 02/24/17 08:40 Laboratory Tests 02/24/17 08:40 EKG EKG [] Radiology/Procedures Radiology/Procedures [] Course & Med Decision Making Course & Med Decision Making Pertinent Labs and Imaging studies reviewed. (See chart for details) [Shows persistent mild slurring of speech likely nontender to recent change medications. Symptoms improved while in the ED. Basic work up unremarkable. Patient given pain medications significant improvement. Recommend discharge home and holding medications until reviewed by patient's [facility] neurologist for further directions. Patient walks steady gait prior to discharge. Return precautions reviewed. Dragon Disclaimer Dragon Disclaimer This electronic medical record was generated, in whole or in part, using a voice recognition dictation system. Departure Departure Impression: Primary Impression: Head ache Disposition: 01 HOME, SELF-CARE Referrals: RUTH PEREZ (PCP) COLT HASSAN DO Feb 24, 2017 07:39
[2017-02-24 08:50] LABS: BASO # 0.1 x10^3/uL (0.0-0.2); BASO % 1 % (0-3); EOS % 1 % (0-3); HEMATOCRIT 38.9 % (36.0-47.0); LYMPH # 1.4 x10^3/uL (1.0-4.8); LYMPH % 20 % (24-48); MEAN CORPUSCULAR HEMOGLOBIN 28 pg (25-35); MEAN CORPUSCULAR HGB CONC 33 g/dL (31-37); MEAN CORPUSCULAR VOLUME 84 fL (79-100); MONO % 6 % (0-9); NEUT % 72 % (31-73); PLATELET COUNT 218 x10^3/uL (140-400); RED BLOOD COUNT 4.61 x10^6/uL (3.50-5.40); RED CELL DISTRIBUTION WIDTH 12.9 % (11.5-14.5)
[2017-02-24 08:58] LABS: CALCIUM 10.2 mg/dL (8.5-10.1); GFR 56.9; POTASSIUM 4.3 mmol/L (3.5-5.1)
[2017-02-24 09:03] LABS: ALBUMIN 3.7 g/dL (3.4-5.0); ALBUMIN/GLOBULIN RATIO 0.9 (1.0-1.7); TOTAL BILIRUBIN 0.4 mg/dL (0.2-1.0); TOTAL PROTEIN 7.7 g/dL (6.4-8.2)
[2017-02-24 09:21] VITALS: BP 146/72
[2017-02-24] MEDS ORDERED: fentaNYL PF VIAL 100 MCG/2 ML VIAL IM ONE (09:30)
[2017-02-24] MEDS ORDERED: ONDANSETRON ODT 4 MG TAB.RAPDIS. PO ONE (09:30)
[2017-02-24] MEDS ORDERED: cefTRIAXone IM 1 GM VIAL IM ONE (13:53)
== END 2017-02-24 09:55 | disposition home or self-care (01) ==
LOC: ER 07:06
DX: R51 Headache (principal); R47.81 Slurred speech; R42 Dizziness and giddiness; R11.0 Nausea; E78.00 Pure hypercholesterolemia, unspecified; I10 Essential (primary) hypertension; E03.9 Hypothyroidism, unspecified; G43.909 Migraine, unspecified, not intractable, without status migrainosus; Z86.73 Personal history of transient ischemic attack (TIA), and cerebral infarction without residual deficits; Z90.49 Acquired absence of other specified parts of digestive tract; Z90.710 Acquired absence of both cervix and uterus; Z96.659 Presence of unspecified artificial knee joint; Z88.6 Allergy status to analgesic agent; Z88.8 Allergy status to other drugs, medicaments and biological substances
CPT/HCPCS: 36415; 80053; 85027; 96372; 99284; J3010; Q0162

== ENCOUNTER 2017-03-01 19:45 | Emergency (ER) | payer SELFPAY ==
[~2017-03-01] VITALS: Ht 175.3 cm; Wt 136.1 kg
[2017-03-01] MEDS ORDERED: IV NORMAL SALINE 1000ML BAG 1,000 ML IV SCH ×2 (21:02→23:15)
[2017-03-01 21:12] LABS: BASO % 1 % (0-3); EOS % 3 % (0-3); HEMATOCRIT 41.1 % (36.0-47.0); LYMPH # 1.9 x10^3/uL (1.0-4.8); LYMPH % 28 % (24-48); MEAN CORPUSCULAR HEMOGLOBIN 28 pg (25-35); MEAN CORPUSCULAR HGB CONC 32 g/dL (31-37); MEAN CORPUSCULAR VOLUME 87 fL (79-100); MONO % 7 % (0-9); NEUT % 62 % (31-73); PLATELET COUNT 191 x10^3/uL (140-400); RED BLOOD COUNT 4.74 x10^6/uL (3.50-5.40); WHITE BLOOD COUNT 6.8 x10^3/uL (4.0-11.0)
[2017-03-01 21:14] LABS: BILIRUBIN,URINE NEGATIVE (NEG); GLUCOSE,URINE NEGATIVE (NEG); NITRITE,URINE NEGATIVE (NEG); PH,URINE 6.5; PROTEIN,URINE NEGATIVE (NEG-TRACE); UROBILINOGEN,URINE 0.2 mg/dL (0.2 mg/dL)
[2017-03-01 21:27] LABS: BACTERIA,URINE MODERATE /HPF (0-FEW); RBC,URINE OCC /HPF (0-2); SQUAMOUS EPITHELIAL CELL,UR MANY /LPF
[2017-03-01 21:27] LABS: CALCIUM 9.5 mg/dL (8.5-10.1); CREATININE 0.8 mg/dL (0.6-1.0); GFR 73.7; POTASSIUM 3.6 mmol/L (3.5-5.1)
[2017-03-01 21:34] LABS: ALBUMIN 3.3 g/dL (3.4-5.0); ALBUMIN/GLOBULIN RATIO 0.9 (1.0-1.7); MAGNESIUM 1.8 mg/dL (1.8-2.4); TOTAL BILIRUBIN 0.4 mg/dL (0.2-1.0)
[2017-03-01] MEDS ORDERED: diphenhydrAMINE 50 MG/ML VIAL IVP ONE (21:45)
[2017-03-01] MEDS ORDERED: PROCHLORPERAZINE 10 MG/2 ML VIAL. IV ONE (21:45)
--- NOTE | 2017-03-01 22:47 | PHYS DOC ---
Past Medical History Past Medical History: Diverticulitis, Diverticulosis, High Cholesterol, Hypertension, Hypothyroid, Migraines, Stroke, TIA Additional Past Medical Histor: FATTY LIVER DISEASE, CVA, ULCERS Past Surgical History: Appendectomy, Cholecystectomy, , Hysterectomy, Knee Replacement Alcohol Use: None Drug Use: None Adult General Chief Complaint Chief Complaint: MULTIPLE COMPLAINTS HPI HPI Patient is a 56 year old female who presents with complaint of possible adverse side effect to medication. The patient was seen on February 24, 2017 in the emergency department after patient states that she had been increased to 4 tablets of Zonegran at nighttime. Patient states that she was taking the medication as prescribed by her neurologist for treatment of chronic migraine headaches. The patient states that her evaluation was unremarkable at her previous visit and was told to work on decreasing her medication as recommended by her neurologist. Patient states that her symptoms have not improved significantly. The patient called her neurologist and was told come to the emergency department for further evaluation. Patient states that she has been having dizziness, slight slurring of speech, generalized weakness, and fatigue. Patient denies any worsening unilateral symptoms. Patient denies any fevers and has not had any dysuria or increased urinary frequency. The patient states that she feels very fatigued and has low energy and has felt wobbly on her feet. Review of Systems Review of Systems Constitutional: Denies fever or chills [] Eyes: Denies change in visual acuity, redness, or eye pain [] HENT: Denies nasal congestion or sore throat [] Respiratory: Denies cough or shortness of breath [] Cardiovascular: Denies chest pain or edema [] GI: Denies abdominal pain, nausea, vomiting, bloody stools or diarrhea [] : Denies dysuria or hematuria [] Musculoskeletal: Denies back pain or joint pain [] Integument: Denies rash or skin lesions [] Neurologic: Headache, dizziness, denies focal weakness or sensory changes [] Current Medications Current Medications Current Medications Medications (Trade) Dose Ordered Sig/Aretha Start Time Stop Time Status Last Admin Dose Admin Diphenhydramine HCl (Benadryl) 12.5 mg 1X ONCE 03/01/17 21:45 03/01/17 21:46 DC 03/01/17 21:40 12.5 MG Prochlorperazine Edisylate (Compazine) 10 mg 1X ONCE 03/01/17 21:45 03/01/17 21:46 DC 03/01/17 21:41 10 MG Sodium Chloride 1,000 ml @ 1,000 mls/hr Q1H 03/01/17 21:02 03/01/17 22:01 DC 03/01/17 21:16 1,000 MLS/HR Allergies Allergies Allergies Coded Allergies Type Severity Reaction Last Updated Verified Fenofibrate Nanocrystallized Allergy Intermediate migraines 09/30/14 Yes celecoxib Allergy Intermediate 09/30/14 Yes colesevelam Allergy Intermediate 09/30/14 Yes dimenhydrinate Allergy Intermediate 03/01/17 Yes duloxetine Allergy Intermediate 09/30/14 Yes metoclopramide Allergy Intermediate itching 09/30/14 Yes pantoprazole sodium Allergy Intermediate rash 09/30/14 Yes pregabalin Allergy Intermediate rash 09/30/14 Yes vilazodone hydrochloride Allergy Intermediate 09/30/14 Yes NSAIDS (Non-Steroidal Anti-Inflamma Adverse Reaction Intermediate ULCERS Yes Dymhphw-Fdt-Nii Reductase Inhibitor Adverse Reaction Intermediate INCREASED LIVER ENZYMES 09/30/14 Yes Physical Exam Physical Exam Constitutional: Alert, afebrile, no acute distress. [] HENT: Normocephalic, atraumatic, bilateral external ears normal, oropharynx moist, no oral exudates, nose normal. [] Eyes: PERRLA, EOMI, conjunctiva normal, no discharge. [] Neck: Normal range of motion, no tenderness, supple, no stridor. [] Cardiovascular:Heart rate regular rhythm, no murmur [] Lungs & Thorax: Bilateral breath sounds clear to auscultation [] Abdomen: Bowel sounds normal, soft, no tenderness, no masses, no pulsatile masses. [] Skin: Warm, dry, no erythema, no rash. [] Back: No tenderness, no CVA tenderness. [] Extremities: No tenderness, no cyanosis, no clubbing, ROM intact, no edema. [] Neurologic: Alert and oriented X 3, normal motor function, normal sensory function, no focal deficits noted. [] Current Patient Data Vital Signs Vital Signs Date Time Temp Pulse Resp B/P (MAP) Pulse Ox O2 Delivery O2 Flow Rate FiO2 03/01/17 20:00 98.6 72 22 169/81 (110) 94 Room Air 98.6 Lab Values Laboratory Tests Test 03/01/17 20:25 03/01/17 20:59 White Blood Count 6.8 x10^3/uL (4.0-11.0) Red Blood Count 4.74 x10^6/uL (3.50-5.40) Hemoglobin 13.0 g/dL (12.0-15.5) Hematocrit 41.1 % (36.0-47.0) Mean Corpuscular Volume 87 fL (79-100) Mean Corpuscular Hemoglobin 28 pg (25-35) Mean Corpuscular Hemoglobin Concent 32 g/dL (31-37) Red Cell Distribution Width 13.0 % (11.5-14.5) Platelet Count 191 x10^3/uL (140-400) Neutrophils (%) (Auto) 62 % (31-73) Lymphocytes (%) (Auto) 28 % (24-48) Monocytes (%) (Auto) 7 % (0-9) Eosinophils (%) (Auto) 3 % (0-3) Basophils (%) (Auto) 1 % (0-3) Neutrophils # (Auto) 4.2 x10^3uL (1.8-7.7) Lymphocytes # (Auto) 1.9 x10^3/uL (1.0-4.8) Monocytes # (Auto) 0.5 x10^3/uL (0.0-1.1) Eosinophils # (Auto) 0.2 x10^3/uL (0.0-0.7) Basophils # (Auto) 0.0 x10^3/uL (0.0-0.2) Sodium Level 140 mmol/L (136-145) Potassium Level 3.6 mmol/L (3.5-5.1) Chloride Level 103 mmol/L (98-107) Carbon Dioxide Level 27 mmol/L (21-32) Anion Gap 10 (6-14) Blood Urea Nitrogen 12 mg/dL (7-20) Creatinine 0.8 mg/dL (0.6-1.0) Estimated GFR (Cockcroft-Gault) 73.7 BUN/Creatinine Ratio 15 (6-20) Glucose Level 97 mg/dL (70-99) Calcium Level 9.5 mg/dL (8.5-10.1) Magnesium Level 1.8 mg/dL (1.8-2.4) Total Bilirubin 0.4 mg/dL (0.2-1.0) Aspartate Amino Transferase (AST) 38 U/L (15-37) H Alanine Aminotransferase (ALT) 49 U/L (14-59) Alkaline Phosphatase 155 U/L (46-116) H Total Protein 7.0 g/dL (6.4-8.2) Albumin 3.3 g/dL (3.4-5.0) L Albumin/Globulin Ratio 0.9 (1.0-1.7) L Urine Collection Type Unknown Urine Color Yellow Urine Clarity Clear Urine pH 6.5 Urine Specific [place] <=1.005 Urine Protein Negative mg/dL (NEG-TRACE) Urine Glucose (UA) Negative mg/dL (NEG) Urine Ketones (Stick) Negative mg/dL (NEG) Urine Blood Negative (NEG) Urine Nitrite Negative (NEG) Urine Bilirubin Negative (NEG) Urine Urobilinogen Dipstick 0.2 mg/dL (0.2 mg/dL) Urine Leukocyte Esterase Negative (NEG) Urine RBC Occ /HPF (0-2) Urine WBC 1-4 /HPF (0-4) Urine Squamous Epithelial Cells Many /LPF Urine Bacteria Moderate /HPF (0-FEW) Laboratory Tests 03/01/17 20:25 Laboratory Tests 03/01/17 20:25 EKG EKG Interpreted by me: Heart rate 68, sinus rhythm, normal intervals, normal axis, no acute ST/T-wave abnormalities present [] Radiology/Procedures Radiology/Procedures Not performed [] Course & Med Decision Making Course & Med Decision Making Pertinent Labs and Imaging studies reviewed. (See chart for details) Patient was given IV fluids in the emergency department. The patient's repeat lab work appears unremarkable at this time. The patient states that she is feeling better after IV fluids and would like to go home at this time. Patient states that she would like to follow-up with her neurologist tomorrow for reevaluation. The patient's exam does not show any focal deficits. The patient did complain of migraine headache which was improved with administration of Compazine in the emergency department. The patient's medication has a prolonged half life of approximately 63 hours and in high doses may continue to be persistent in her system, thus causing adverse symptoms. Advised to follow-up tomorrow as planned with her neurologist to discuss continued dosing of the medication. Advised return emergency department for any worsening symptoms. Patient voiced understanding and in agreement with treatment plan. Dragon Disclaimer Dragon Disclaimer This electronic medical record was generated, in whole or in part, using a voice recognition dictation system. Departure Departure Impression: Primary Impression: Medication reaction Disposition: HOME, SELF-CARE Condition: STABLE Referrals: RUTH PEREZ (PCP) Patient Instructions: Drug Reaction, GI Intolerance Additional Instructions: Follow-up with your neurologist tomorrow for reevaluation. Return to emergency department for any worsening symptoms. Problem Qualifiers Primary Impression: Medication reaction Encounter type: subsequent encounter Qualified Codes: T88.7XXD - Unspecified adverse effect of drug or medicament, subsequent encounter BARON NEWBY MD Mar 01, 2017 22:47
[2017-03-01 22:58] VITALS: BP 173/84
[2017-03-01] MEDS ORDERED: ONDANSETRON PF 4 MG/2 ML VIAL. IV PRN (23:15)
--- NOTE | 2017-03-02 06:59 | EKG ---
[facility] [address] [place] [address] Test Date: 2017-03-01 Test Time: 21:06:13 Pat Name: LULU WEINBERG Department: Room: Gender: F Media Coordinator: MICHAEL : 1960 Requested By: BARON NEWBY Order Number: [id number] Reading MD: Katelyn Guzman Measurements Intervals Nelson Rate: 68 P: 37 AK: 156 QRS: 2 QRSD: 86 T: 13 QT: 428 QTc: 460 Interpretive Statements SINUS RHYTHM NORMAL EKG Electronically Signed On 03-02-2017 20:44:44 CDT by Katelyn Guzman
== END 2017-03-01 22:58 | disposition home or self-care (01) ==
LOC: ER 19:45
DX: T42.6X5D Adverse effect of other antiepileptic and sedative-hypnotic drugs, subsequent encounter (principal); R42 Dizziness and giddiness; R53.1 Weakness; R47.81 Slurred speech; E78.00 Pure hypercholesterolemia, unspecified; I10 Essential (primary) hypertension; E03.9 Hypothyroidism, unspecified; G43.909 Migraine, unspecified, not intractable, without status migrainosus; Z86.73 Personal history of transient ischemic attack (TIA), and cerebral infarction without residual deficits; Z88.6 Allergy status to analgesic agent; Z88.8 Allergy status to other drugs, medicaments and biological substances
CPT/HCPCS: 36415; 80053; 81001; 83735; 85025; 87086; 93005; 96361; 96374; 96375; 99285; J0780; J1200; J7030

== ENCOUNTER 2017-03-06 17:08 | Emergency (ER) | payer SELFPAY ==
[~2017-03-06] VITALS: Ht 170.2 cm; Wt 136.1 kg
[2017-03-06 18:43] LABS: BARBITURATES NEG (NEG); BENZODIAZEPINES POS (NEG); CANNABINOIDS NEG (NEG); COCAINE NEG (NEG); METHADONE NEG (NEG); OPIATES NEG (NEG); PHENCYCLIDINE NEG (NEG)
[2017-03-06] MEDS ORDERED: BUTALB/APAP/CAFEIN 50/325/40MG TABLET. PO ONE (19:30)
[2017-03-06] MEDS ORDERED: ONDANSETRON ODT 4 MG TAB.RAPDIS. PO ONE (19:30)
[2017-03-06] MEDS ORDERED: LIDOCAINE 1% PF 2 ML VIAL. NEB ONE (19:30)
[2017-03-06 21:00] VITALS: BP 141/99
--- NOTE | 2017-03-06 21:46 | ED.ADGEN ---
Past Medical History Past Medical History: Diverticulitis, Diverticulosis, High Cholesterol, Hypertension, Hypothyroid, Migraines, Stroke, TIA Additional Past Medical Histor: FATTY LIVER DISEASE, CVA, ULCERS Past Surgical History: Appendectomy, Cholecystectomy, , Hysterectomy, Knee Replacement Alcohol Use: None Drug Use: None Adult General Chief Complaint Chief Complaint: HEADACHE HPI HPI Patient is a 56 year old woman, history of CVA, migraine headache, who states that she is experiencing suicidal thoughts due to side effects and adjustment of her zonisamide, prescriber her neurologist Dr. Pizano. Patient states that she had stopped taking the medication, due to concerns that was making her feel suicidal, but took the medication in the waiting room, as "I felt like it was being ignored. Patient currently is complaining of a migraine headache as well as feeling suicidal, although she does not have planning denies any other ingestions or self injures behaviors. Patient's is en route to the ED. She is denying any other complaints, complains her typical migraine type symptoms, without any chest pain, shortness breath, fevers, chills, injury, weakness, numbness, tingling, vision changes or other complaints. Review of Systems Review of Systems Constitutional: Denies fever or chills. [] Eyes: Denies change in visual acuity. [] HENT: Denies nasal congestion or sore throat. [] Respiratory: Denies cough or shortness of breath. [] Cardiovascular: Denies chest pain or edema. [] GI: Denies abdominal pain, nausea, vomiting, bloody stools or diarrhea. [] : Denies dysuria. [] Musculoskeletal: Denies back pain or joint pain. [] Integument: Denies rash. [] Neurologic: Denies focal weakness or sensory changes. Complaining of typical migraine headache type symptoms. Endocrine: Denies polyuria or polydipsia. [] Lymphatic: Denies swollen glands. [] Psychiatric: Denies depression or anxiety. [] Current Medications Current Medications Current Medications Medications (Trade) Dose Ordered Sig/Aretha Start Time Stop Time Status Last Admin Dose Admin Acetaminophen/ Butalbital/ Caffeine (Fioricet) 1 tab 1X ONCE 03/06/17 19:30 03/06/17 19:31 DC 03/06/17 19:31 1 TAB Lidocaine HCl (Xylocaine-Mpf 1% Vial) 4 ml 1X ONCE 8/20/17 19:30 03/06/17 19:31 DC 03/06/17 19:32 4 ML Ondansetron HCl (Zofran Odt) 4 mg 1X ONCE 03/06/17 19:30 03/06/17 19:31 DC 03/06/17 19:32 4 MG Allergies Allergies Allergies Coded Allergies Type Severity Reaction Last Updated Verified Fenofibrate Nanocrystallized Allergy Intermediate migraines 09/30/14 Yes celecoxib Allergy Intermediate 09/30/14 Yes colesevelam Allergy Intermediate 09/30/14 Yes dimenhydrinate Allergy Intermediate 03/01/17 Yes duloxetine Allergy Intermediate 09/30/14 Yes metoclopramide Allergy Intermediate itching 09/30/14 Yes pantoprazole sodium Allergy Intermediate rash 09/30/14 Yes pregabalin Allergy Intermediate rash 09/30/14 Yes vilazodone hydrochloride Allergy Intermediate 09/30/14 Yes NSAIDS (Non-Steroidal Anti-Inflamma Adverse Reaction Intermediate ULCERS Yes Zdqgncn-Uhe-Zoz Reductase Inhibitor Adverse Reaction Intermediate INCREASED LIVER ENZYMES 09/30/14 Yes Physical Exam Physical Exam Constitutional: Well developed, well nourished, no acute distress, non-toxic appearance. [] HENT: Normocephalic, atraumatic, bilateral external ears normal, oropharynx moist, no oral exudates, nose normal. [] Eyes: PERRLA, EOMI, conjunctiva normal, no discharge. [] Neck: Normal range of motion, no tenderness, supple, no stridor. [] Cardiovascular:Heart rate regular rhythm, no murmur, S1, S2, no rubs or gallops. [] Lungs & Thorax: Bilateral breath sounds clear to auscultation, no wheezing, rhonchi, rales. No chest or crepitus or tenderness. [] Abdomen: Bowel sounds normal, soft, obese, no rebound, rigidity, no guarding, no tenderness, no masses, no pulsatile masses. [] Skin: Warm, dry, no erythema, no rash. [] Back: No tenderness, no CVA tenderness. [] Extremities: No tenderness, no cyanosis, no clubbing, ROM intact, no edema. [] Neurologic: Alert and oriented X 3, normal motor function, normal sensory function, no focal deficits noted. [] Psychologic: Affect normal, judgement normal, mood normal. [] Current Patient Data Vital Signs Vital Signs Date Time Temp Pulse Resp B/P (MAP) Pulse Ox O2 Delivery O2 Flow Rate FiO2 03/06/17 21:00 18 141/99 (113) Room Air 03/06/17 17:45 98.0 98.0 Lab Values Laboratory Tests Test 03/06/17 18:10 Urine Opiates Screen Neg (NEG) Urine Methadone Screen Neg (NEG) Urine Barbiturates Neg (NEG) Urine Phencyclidine Screen Neg (NEG) Urine Amphetamine/Methamphetamine Neg (NEG) Urine Benzodiazepines Screen Pos (NEG) Urine Cocaine Screen Neg (NEG) Urine Cannabinoids Screen Neg (NEG) Urine Ethyl Alcohol Neg (NEG) EKG EKG Not indicated. [] Radiology/Procedures Radiology/Procedures Not indicated. [] Course & Med Decision Making Course & Med Decision Making Pertinent Labs and Imaging studies reviewed. (See chart for details) Patient with a normal neurologic examination, no auditory or visual hallucinations, is complaining of her typical migraine type headache, and also feeling suicidal but has no plan at denies any self injurious behaviors. Patient states that she does believe that her medications are the sole cause for these suicidal feelings. She is denying any concerning feelings or thoughts at this time. Drug urine screen obtained which is negative. Nurse Albarran spoke with Bita atkinson of the psychiatric assessment team, did evaluate the patient in the ED. As patient is exhibiting no concerning signs this time, has been treated successfully for her migraine and is feeling much better at this time and states she is ready to go home, after discussion with Bita of the psychiatric assessment team, plan for the patient to follow-up with her neurologist, with her mental health care team, to continue medications as directed by her primary care provider and to return the ED for concerning symptoms. Patient's is present in the ED, is agreeable this plan as well , discharged home in stable condition with plan and precautions as stated. Dragon Disclaimer Dragon Disclaimer This electronic medical record was generated, in whole or in part, using a voice recognition dictation system. Departure Impression: Primary Impression: Migraine Additional Impression: Depressed Disposition: HOME, SELF-CARE Condition: IMPROVED Problem Qualifiers DIANA JACOB DO Mar 06, 2017 21:46
== END 2017-03-06 21:00 | disposition home or self-care (01) ==
LOC: ER 17:08
DX: G43.909 Migraine, unspecified, not intractable, without status migrainosus (principal); F32.9 Major depressive disorder, single episode, unspecified; K76.0 Fatty (change of) liver, not elsewhere classified; I10 Essential (primary) hypertension; E78.00 Pure hypercholesterolemia, unspecified; E03.9 Hypothyroidism, unspecified; Z88.8 Allergy status to other drugs, medicaments and biological substances; Z86.73 Personal history of transient ischemic attack (TIA), and cerebral infarction without residual deficits; Z79.899 Other long term (current) drug therapy
CPT/HCPCS: 80307; 99284; Q0162; G0479

== ENCOUNTER → 2017-04-04 | Outpatient (CLI) | payer BC ==
[2017-03-06 21:00] VITALS: BP 141/99
[~2017-04-04] MED LIST changes: +CIPR500T94 PO; +FLUT16SP NS; +LOSA100T6 PO; +OMEP20CA9 PO; +SLOW MAG PO; +[UNRECOGNIZED DRUG - OTHER] PO
[2017-04-04 12:29] LABS: ALBUMIN 3.4 g/dL (3.4-5.0); CALCIUM 9.5 mg/dL (8.5-10.1); GFR 56.9; POTASSIUM 4.1 mmol/L (3.5-5.1)
[2017-04-04 12:46] LABS: BASO # 0.1 x10^3/uL (0.0-0.2); BASO % 1 % (0-3); EOS % 3 % (0-3); HEMOGLOBIN 13.3 g/dL (12.0-15.5); LYMPH # 1.3 x10^3/uL (1.0-4.8); LYMPH % 22 % (24-48); MEAN CORPUSCULAR HEMOGLOBIN 28 pg (25-35); MEAN CORPUSCULAR HGB CONC 33 g/dL (31-37); MEAN CORPUSCULAR VOLUME 84 fL (79-100); MONO % 7 % (0-9); NEUT % 66 % (31-73); PLATELET COUNT 221 x10^3/uL (140-400); RED BLOOD COUNT 4.78 x10^6/uL (3.50-5.40); RED CELL DISTRIBUTION WIDTH 13.3 % (11.5-14.5); WHITE BLOOD COUNT 5.9 x10^3/uL (4.0-11.0)
[2017-04-04 13:34] LABS: BILIRUBIN,URINE NEGATIVE (NEG); GLUCOSE,URINE NEGATIVE (NEG); NITRITE,URINE NEGATIVE (NEG); PROTEIN,URINE NEGATIVE (NEG-TRACE); UROBILINOGEN,URINE 0.2 mg/dL (0.2 mg/dL)
[2017-04-04 13:41] LABS: INR 1.1 (0.8-1.1); PROTHROMBIN TIME PATIENT 13.1 SEC (11.7-14.0)
[2017-04-04 13:48] LABS: BACTERIA,URINE MANY /HPF (0-FEW); RBC,URINE 0 /HPF (0-2); SQUAMOUS EPITHELIAL CELL,UR MOD /LPF
== END | disposition home or self-care (01) ==
LOC: SURGPAT 11:26
PROVIDERS: ATTEND Orthopaedic Surgery
DX: M17.11 Unilateral primary osteoarthritis, right knee (principal); Z96.651 Presence of right artificial knee joint; Z79.899 Other long term (current) drug therapy
CPT/HCPCS: 36415; 80048; 81001; 82040; 85025; 85610; 85651; 85730; 87086; 87186; 87641

== ENCOUNTER 2017-04-12 08:45 | Inpatient (IN) | payer BC ==
--- NOTE | 2017-04-11 16:05 | PDOC1 ---
History and Physical Date of Admission Date of Admission DATE: 04/12/17 Identification/Chief Complaint Chief Complaint right knee osteoarthritis pain Problems: Source Source: Chart review History of Present Illness History of Present Illness The patient is a 56 year old female with right knee pain and osteoarthritis. She received an injection on 11/25/16 which relieved her pain. She went to physical therapy twice where she did aqua therapy however it wasn't helping and aggravated her pain so she discontinued. Her pain is bothering her daily and she would like to discuss total knee arthroplasty. She had two teeth pulled recently. She reports her lost his job and they just recently got new insurance. Past Medical History Cardiovascular: HTN, Hyperlipidemia Pulmonary: Other CENTRAL NERVOUS SYSTEM: Migraine, TIA Psych: Anxiety, Depression Musculoskeletal: Osteoarthritis Rheumatologic: Fibromyalgia Endocrine: Hypothyroidism Past Surgical History Past Surgical History: Appendectomy, Cholecystectomy, , Total knee replacement (left 06/2016), Tubal Ligation, Tonsillectomy, Hysterectomy, Other Family History Family History: Coronary Artery Disease, High Cholestrol, Hypertension, Stroke Social History Smoke: Quit (2007) ALCOHOL: none Drugs: None Current Medications Current Medications Current Medications Ondansetron HCl (Zofran) 4 mg PRN Q6HRS PRN IV NAUSEA/VOMITING; Start 04/12/17 at 07:00; Stop 04/13/17 at 06:59 Fentanyl Citrate (Fentanyl 2ml Vial) 25 mcg PRN Q5MIN PRN IV MILD PAIN; Start 04/12/17 at 07:00; Stop 04/13/17 at 06:59 Fentanyl Citrate (Fentanyl 2ml Vial) 50 mcg PRN Q5MIN PRN IV MODERATE PAIN; Start 04/12/17 at 07:00; Stop 04/13/17 at 06:59 Morphine Sulfate 1 mg PRN Q10MIN PRN IV SEVERE PAIN; Start 04/12/17 at 07:00; Stop 04/13/17 at 06:59 Ringer's Solution 1,000 ml @ 30 mls/hr Q24H IV ; Start 04/12/17 at 07:00; Stop 04/12/17 at 18:59 Lidocaine HCl (Xylocaine-Mpf 1% Vial) 2 ml PRN 1X PRN ID IV START; Start at 07:00; Stop 04/13/17 at 06:59 Hydromorphone HCl (Dilaudid) 0.5 mg PRN Q10MIN PRN IV SEV PAIN, Second choice; Start 04/12/17 at 07:00; Stop 04/13/17 at 06:59 Morphine Sulfate 5 mg/Ketorolac Tromethamine 30 mg/Ropivacaine 60 ml/ Epinephrine HCl 0.5 mg/Sodium Chloride 100 ml @ 100 mls/hr 1X PERIOP ONCE INT ART ; Start 04/12/17 at 06:00; Stop 04/12/17 at 06:59 Active Scripts Active Reported [Xysol] 1 Tab PO HS [Slow Mag] 238 Mg PO HS Trazodone Hcl 50 Mg Tablet 50 Mg PO DAILY PRN Melatonin 5 Mg Tab.rapdis 5 Mg PO DAILY Cyclobenzaprine Hcl 10 Mg Tablet 1 Tab PO TID Krill Oil 1,000 Mg Softgel (Krill/Om3/Dha/Epa/Om6/Lip/Astx) 1 Each Capsule 1 Each PO DAILY Niaspan (Niacin) 500 Mg Tab.er.24h 500 Mg PO HS Fish Oil ([place]-3 Fatty Acids) 500 Mg Capsule.dr 1,400 Mg PO Aspirin 81 Mg Tab.chew 81 Mg PO DAILY Fluoxetine Hcl 20 Mg Tablet 40 Mg PO DAILY Zolpidem Tartrate 10 Mg Tablet 10 Mg PO Losartan Potassium 50 Mg Tablet 50 Mg PO HS Levothyroxine Sodium 125 Mcg Tablet 125 Mcg PO DAILY Alprazolam 1 Mg Tablet 1 Mg PO DAILY PRN Allergies Allergies: Coded Allergies: prochlorperazine (Verified Allergy, Severe, 04/04/17) SKIN CRAWLING Fenofibrate Nanocrystallized (Verified Allergy, Intermediate, migraines, ) celecoxib (Verified Allergy, Intermediate, 09/30/14) colesevelam (Verified Allergy, Intermediate, 09/30/14) dimenhydrinate (Verified Allergy, Intermediate, 03/01/17) TOLERATES BENADRYL duloxetine (Verified Allergy, Intermediate, 09/30/14) metoclopramide (Verified Allergy, Intermediate, itching, 09/30/14) pantoprazole sodium (Verified Allergy, Intermediate, rash, 09/30/14) pregabalin (Verified Allergy, Intermediate, rash, 09/30/14) selegiline (Verified Allergy, Intermediate, 04/04/17) INCREASE LIVER ENZYMES topiramate (Verified Allergy, Intermediate, 04/04/17) DOESN'T WORK FOR MIGRIANES vilazodone hydrochloride (Verified Allergy, Intermediate, 09/30/14) zonisamide (Verified Allergy, Mild, 03/14/17) lansoprazole (Verified Allergy, Unknown, 04/04/17) "DOESN'T WORK" NSAIDS (Non-Steroidal Anti-Inflamma (Verified Adverse Reaction, Intermediate, ULCERS, 09/30/14) Tgcnfwb-Znx-Ufp Reductase Inhibitor (Verified Adverse Reaction, Intermediate, INCREASED LIVER ENZYMES, 09/30/14) Physical Exam General: Alert, Oriented X3, Cooperative, No acute distress HEENT: Atraumatic, EOMI Lungs: Normal air movement Heart: RRR Extremities: No clubbing, No cyanosis, Normal pulses, Other (RIGHT KNEE: mildly antalgic gait. There is trace varus alignment. No masses. No detectable effusion. Tenderness on the medial and lateral joint lines. Range of motion is 5 -90 degrees. There is crepitus with range of motion, and pain at the extremes of motion. The knee is stable to varus and valgus stress without subluxation or laxity. Muscle strength is normal (5/5) for quadriceps and hamstrings, and muscle tone is normal. The skin is normal with no scars, rashes, lesions or ulcers. Light touch sensation is intact. No edema and no varicosities. Dorsalis pedis pulse is intact and capillary refill is normal LEFT KNEE: The left knee shows normal alignment, no masses and no effusion. No tenderness to palpation. Range of motion is 0-120 degrees, with typical total knee crepitus but no pain at the extremes of motion. The knee is stable to varus and valgus stress without subluxation or laxity. Muscle strength is normal 5/5 for quadriceps and hamstrings, and muscle tone is normal. The extensor mechanism is intact. The skin shows a well-healed midline scar from total knee arthroplasty. No drainage lesions or ulcers. Light touch sensation is intact. No edema and no varicosities. Trace ecchymosis over medial aspect of the calf. Dorsalis pedis pulse is intact and capillary refill is normal) Skin: No rashes, No breakdown, No significant lesion Neuro: Normal speech, Sensation intact Psych/Mental Status: Mental status NL, Mood NL Vitals Vitals Vital Signs Date Time Temp Pulse Resp B/P (MAP) Pulse Ox O2 Delivery O2 Flow Rate FiO2 04/04/17 12:16 97.8 80 20 93 97.8 Images Images IMAGING REPORT Joint survey, hips knees and ankles Clinical information: Preoperative for total knee arthroplasty Comparison: None. Findings Bones: The angle between the right hip-ankle mechanical axis and the femoral shaft is 5. The angle between the left hip-ankle mechanical axis and the femoral shaft is 5 . The mechanical axis crosses medial to the center of the right knee indicating varus alignment. The mechanical axis crosses in the center of the left knee indicating proper mechanical alignment. Joints: There is narrowing of the right knee joint medially. The left knee joint appears normal. The hips and ankles show minimal degenerative changes. Soft tissue: Normal. Impression: Varus alignment of the right knee. The difference between the mechanical axis and femoral shaft anatomic axis is 5 bilaterally ERUM PATEL 04/07/2017 12:38:20 PM CDT > Corrected report follows: IMAGING REPORT Joint survey, hips knees and ankles Clinical information: Preoperative for total knee arthroplasty Comparison : None. Findings Bones: The angle between the right hip-ankle mechanical axis and the femoral shaft is 5. The angle between the left hip-ankle mechanical axis and the femoral shaft is 5. The mechanical axis crosses medial to the center of the right knee indicating varus alignment. The mechanical axis crosse near the center of the left prosthetic knee indicating proper mechanical alignment. Joints: There is narrowing of the right knee joint medially. The left knee prosthetic joint appears normal. The hips and ankles show minimal degenerative changes. Soft tissue: Normal. Impression: Varus alignment of the right knee. The difference between the mechanical axis and femoral shaft anatomic axis is 5 bilaterally. Dictated and Signed Using Voice Recognition Software Erum Patel MD VTE Prophylaxis Ordered VTE Prophylaxis Devices: Yes VTE Pharmacological Prophylaxi: Yes Assessment/Plan Assessment/Plan The patient and Dr. Patel discussed the potential risks of infection, neurovascular injury, bleeding, blood clots, need for revision surgery, or other potential surgical or anesthetic complications. She would like to proceed with right total knee arthroplasty at a future date. We discussed the expected hospitalization and usual recovery. EFREN STARKEY Apr 11, 2017 16:05
[~2017-04-12] VITALS: Ht 167.6 cm; Wt 149.7 kg
[~2017-04-12 08:45] MED LIST changes: -CIPR500T94 PO; -FLUT16SP NS; +HYDROcodone/APAP 7.5/325MG 1 TAB TABLET PO PRN; +HYDROmorphone 2 MG/ML VIAL IV PRN; +IV RINGERS,LACTATED 1000ML 1,000 ML IV SCH; +LIDOCAINE 1% PF 2 ML VIAL. ID PRN; -LOSA100T6 PO; +MORPHINE SULFATE 2 MG/ML DISP.SYRIN. IV PRN; +MORPHINE SULFATE 5 MG, KETOROLAC 30 MG, ROPIVacaine 0.5% PF 60 ML, EPINEPHrine 0.5 MG i... INT ART ONE; -OMEP20CA9 PO; +ONDANSETRON PF 4 MG/2 ML VIAL. IV PRN; +TRANEXAMIC ACID 1,000 MG in IV NS 50ML -- 1ST BAG INJ ONE; +TRANEXAMIC ACID 1,000 MG in IV NS 50ML -- 2ND BAG INJ ONE; +fentaNYL PF VIAL 100 MCG/2 ML VIAL IV PRN
[2017-04-12] MEDS ORDERED: FLUT16SP NS (09:27)
[2017-04-12] MEDS ORDERED: CIPR500T94 PO (09:27)
[2017-04-12] MEDS ORDERED: LOSA100T6 PO (09:27)
[2017-04-12] MEDS ORDERED: OMEP20CA9 PO (09:27)
[2017-04-12 09:29] LABS: BILIRUBIN,URINE NEGATIVE (NEG); GLUCOSE,URINE NEGATIVE (NEG); NITRITE,URINE NEGATIVE (NEG); PH,URINE 6.5; PROTEIN,URINE NEGATIVE (NEG-TRACE); UROBILINOGEN,URINE 0.2 mg/dL (0.2 mg/dL)
[2017-04-12 09:51] LABS: BACTERIA,URINE 0 /HPF (0-FEW); RBC,URINE 0 /HPF (0-2); SQUAMOUS EPITHELIAL CELL,UR FEW /LPF; WBC,URINE 0 /HPF (0-4)
[2017-04-12] MEDS ORDERED: DEXAMETHASONE SOD PHOS 20 MG/5 ML VIAL. ONE (10:21)
[2017-04-12] MEDS ORDERED: PROPOFOL 20 ML IV ONE (10:21)
[2017-04-12] MEDS ORDERED: FAMOTIDINE 20 MG/2 ML VIAL ONE (10:21)
[2017-04-12] MEDS ORDERED: LIDOCAINE 2% PF Vial for OR 5 ML VIAL. ONE (10:21)
[2017-04-12] MEDS ORDERED: ONDANSETRON PF 4 MG/2 ML VIAL. ONE (10:21)
[2017-04-12] MEDS ORDERED: MIDAZOLAM HCL/PF 2 MG/2 ML VIAL. ONE (10:23)
[2017-04-12] MEDS ORDERED: fentaNYL PF VIAL 100 MCG/2 ML VIAL ONE ×2 (10:23→13:27)
[2017-04-12] MEDS ORDERED: VANCOMYCIN 1 GM VIAL. ONE (10:39)
[2017-04-12] MEDS ORDERED: PHENYLEPHRINE in 0.9% NACL PF 1 MG/10 ML DISP.SYRIN. IV ONE (13:04)
[2017-04-12] MEDS ORDERED: GLYCOPYRROLATE 1 MG/5 ML VIAL. ONE (14:16)
[2017-04-12] MEDS ORDERED: NEOSTIGMINE 10 MG/10 ML VIAL. ONE (14:16)
--- NOTE | 2017-04-12 14:43 | PDOC4 ---
Operative Note Operative Note Date of Procedure: April 12, 2017 Pre-Op Diagnosis: Osteoarthritis right knee Post-Op Diagnosis: Osteoarthritis right knee Procedure: right total knee arthroplasty Surgeon: Erum Patel MD Financial Aid: Janet Ly PA-C Anesthesia: General EBL: 200 mL Specimens Obtained: right knee bone and soft tissue Complications: none Implant Company: [employer] ([employer]) Drains: Hemovac plus pain catheter Tourniquet time: 48 Minutes Tourniquet Pressure: 350 mm Hg Indications for Procedure: Arthritis pain unrelieved by nonoperative management. Findings: Severe osteoarthritis with bone on bone contact in all three compartments Implants used: Size 3 right bicruciate stabilized Journey II BCS cobalt chrome femoral component, size 3 right Journey nonporous tibial baseplate, size 3-4 12 mm right Journey II BCS XLPE articular insert, 32 mm oval Karen II resurfacing patellar component Procedure in Detail: The patient was identified in the preoperative holding area, and the correct right lower extremity was marked by me. The patient was taken to the operating room where the patient was anesthetized by the Department of Anesthesia. Preoperative antibiotics were given intravenously. Tranexamic acid 1 g was given intravenously for intraoperative hemostasis. A "time-out" procedure was performed. The patient was positioned supine on the operative table with a tourniquet on the upper right thigh. The right lower limb was thoroughly prepped and draped in sterile fashion. An impervious stockinet and adhesive drape were used such that the skin was entirely covered. An Fritz leg allen was used. The operating team wore personal exhaust-ventilated hoods. The limb was elevated to exsanguinate it, and the tourniquet was inflated.. A midline skin incision was made with a scalpel using the patella and tibial tubercle as landmarks. Electrocautery was used for hemostasis. My produce assistant used rake retractors. A medial parapatellar arthrotomy incision was used with extension into the distal quadriceps tendon. The patella was retracted laterally and Hohmann retractors were now used by my produce assistant. Excess synovium, the menisci, and the cruciate ligaments were resected sharply. The patella was assessed and excess synovium and osteophytes around the patellar articulation were removed. The patella was measured with a caliper, cut freehand with a saw using caliper measurements, sized, and then drilled for an oval three-pegged patella component. Periarticular injection was used in the suprapatellar pouch and distal quadriceps muscle. Whitesides's line was assessed on the femur. An intra-medullary 5 degree cutting guide was pinned to the femur, and a distal femoral cut was made with an oscillating saw. An additional 2 mm resection was used due to the deep femoral sulcus, and deficient condyle.My produce assistant held Hohmann retractors and an [facility] retractor to protect the medial and lateral collateral ligaments, the patellar tendon, the skin and the other soft tissues. An anterior referencing guide was applied with external rotation of 3 to match [place] s line. A 5-in-1 Journey II cutting guide was then applied and pinned to the femur. The posterior, anterior, and all chamfer cuts were made with the oscillating saw. An extramedullary guide was pinned to the tibia and rotational alignment and the planned resection thickness assessed. An external alignment kalin was used to verify the planned cut in the varus-valgus plane and regarding posterior slope referencing the tibial tubercle, the tibial shaft, the ankle joint, and the second metatarsal. The upper tibia was cut made with an oscillating saw. My produce assistant held Hohmann retractors and a posterior cruciate ligament retractor to protect the medial and lateral collateral ligaments, the patellar tendon, the skin, the peroneal nerve and the other soft tissues. The upper tibia was sized with a trial baseplate. The posterior compartment was cleared of osteophytes and loose bodies, and posterior capsule released. Jerri-articular injection was used in the posterior compartment. The box cut for a posterior stabilized component was made. A preliminary reduction was performed with a trial femur, trial tibial baseplate and trial polyethylene. Soft-tissue balancing was now performed, and extension and rotation of the alignments was checked using a guide kalin in the tibial trial and a guide pin in the femur. A medial release was required, using a 10 blade scalpel, and a Jensen elevator to elevate the medial structures from the upper medial tibia. The stability was assessed using different thicknesses of tibial articular surface to find satisfactory stability and good range of motion. The rotation of the tibial component was marked on the upper tibia. Final trial reduction was now performed verifying patella tracking and tibiofemoral stability and alignment. The tibia preparation was completed with a drill, saw, and fin punch at the previously noted rotation. The final implants were verified and opened. Outer gloves were changed by the operating team. The bone cuts were washed thoroughly with the Jennifer InterPulse device and dried. Two packages of Vick + Nephew Rally HV bone cement were mixed in powdered form with 1 gm of Vancomycin, then vacuum-mixed with the monomer, and placed into a cement gun. The cut surfaces of the bone were thoroughly dried with Neff-tip suction and with laparotomy sponges for cement interdigitation. The final components were cemented into place. The knee was kept at full extension while the cement hardened, and excess cement was removed. Tranexamic acid 1 g was redosed intravenously for additional intraoperative hemostasis. A final periarticular injection was used for pain relief. The tourniquet was released, and electrocautery was used for hemostasis. A final check of [id number] and stability was made, and the polyethylene implant final size was chosen. The polyethylene implant was secured to the tibial baseplate, and the knee was reduced a final time. Thorough irrigation was used. Hemovac and pain catheter were used.The arthrotomy was closed with interrupted [id number] #1 PDS suture. The arthrotomy incision was then run with #1 STRATAFIX Symmetric PDS Plus Knotless suture. The subcutaneous tissues were closed with #2-0 Vicryl by my produce assistant. The skin was approximated with staplesby my produce assistant. The skin incision was then covered and reinforced with a Prevena sterile suction dressing. Needle and sponge counts were correct. There were no apparent complications. The patient returned to the recovery room in stable condition. ERUM PATEL MD Apr 12, 2017 14:43
[2017-04-12] MEDS ORDERED: oxyCODONE/APAP 7.5/325 1 TAB TABLET PO PRN (15:00)
[2017-04-12] MEDS ORDERED: traMADol 50 MG TABLET PO PRN ×2 (15:00)
[2017-04-12] MEDS ORDERED: ALPRAZolam 1 MG TABLET PO PRN (15:00)
[2017-04-12] MEDS ORDERED: MORPHINE SULFATE 2 MG/ML DISP.SYRIN. IV PRN (15:00)
[2017-04-12] MEDS ORDERED: DEXTROSE 50% 25 GM / 50ML DISP.SYRIN. IV PRN (15:00)
[2017-04-12] MEDS ORDERED: MORPHINE SULFATE 10 MG/ML VIAL. IV PRN (15:00)
[2017-04-12] MEDS ORDERED: oxyCODONE/APAP 5/325 1 TAB TABLET PO PRN (15:00)
[2017-04-12] MEDS ORDERED: MORPHINE SULFATE 4 MG/ML DISP.SYRIN. IV PRN ×2 (15:00→15:01)
[2017-04-12] MEDS ORDERED: diphenhydrAMINE 50 MG/ML VIAL IV PRN (15:00)
[2017-04-12] MEDS ORDERED: ACETAMINOPHEN 325 MG TABLET. PO PRN (15:00)
[2017-04-12] MEDS ORDERED: CALCIUM CARBONATE 500 MG TAB.CHEW PO PRN (15:00)
[2017-04-12] MEDS ORDERED: 0.9 % SODIUM CHLORIDE 10 ML DISP.SYRIN. IV PRN (15:00)
[2017-04-12] MEDS ORDERED: fentaNYL PF VIAL 100 MCG/2 ML VIAL IV PRN ×2 (15:00)
[2017-04-12] MEDS ORDERED: traZODone 50 MG TABLET. PO PRN (15:00)
[2017-04-12] MEDS: fentaNYL PF VIAL 100 MCG/2 ML VIAL IV PRN ×4 (15:19→16:53)
--- NOTE | 2017-04-12 15:49 | RAD ---
Examination: 2 views of the right knee History: History of postop knee replacement Comparison: None available Findings: Right total knee arthroplasty changes in normal alignment. A drain is identified in the knee joint. Cutaneous surgical clips are identified. Postoperative changes identified in the posterior patella. Impression: Right total knee arthroplasty changes in normal alignment
[2017-04-12] MEDS: MORPHINE SULFATE 4 MG/ML DISP.SYRIN. IV PRN ×2 (15:54→17:32)
[2017-04-12 17:00] VITALS: BP 128/73
[2017-04-12] MEDS ORDERED: IV DEXTROSE 5 %-0.45 % NACL 1,000 ML IV SCH (17:00)
[2017-04-12 17:30] VITALS: BP 133/71
[2017-04-12] MEDS: FERROUS SULFATE 325 MG TABLET. PO SCH (17:32)
[2017-04-12] MEDS: oxyCODONE ER 10 MG TAB.ER.12H PO SCH (17:48)
[2017-04-12 18:00] VITALS: BP 107/80
[2017-04-12 18:30] VITALS: BP 110/74
[2017-04-12 19:00] VITALS: BP 145/80
[2017-04-12] MEDS ORDERED: INFLUENZA VAX SCREEN BY RX. MC ONE (19:30)
[2017-04-12] MEDS ORDERED: FLU VACC QS2017-18 (36MOS+)/PF 0.5 ML SYRINGE. VAX IM ONE (20:00)
[2017-04-12] MEDS ORDERED: NON FORMULARY ITEM (Ciprofloxacin Hcl (Cipro) 1 TAB) PO SCH (21:00)
[2017-04-12] MEDS: ASPIRIN ENTERIC COATED 325 MG TABLET.DR. PO SCH (21:23)
[2017-04-12] MEDS: MAGNESIUM CHLORIDE ER 64 MG TABLET.ER PO SCH ×2 (21:23)
[2017-04-12] MEDS: NIACIN ER 500 MG TABLET.ER PO SCH (21:23)
[2017-04-12] MEDS: CYCLOBENZAPRINE 10 MG TABLET. PO SCH (21:23)
[2017-04-12] MEDS: ZOLPIDEM 5 MG TABLET. PO PRN (21:27)
[2017-04-12] MEDS: LOSARTAN POTASSIUM 50 MG TABLET. PO SCH (21:30)
[2017-04-12] MEDS: HYDROcodone/APAP 7.5/325MG 1 TAB TABLET PO PRN (22:20)
[2017-04-12] MEDS: FLUoxetine HCL 20 MG CAPSULE PO SCH (22:30)
[2017-04-12 23:00] VITALS: BP 101/62
[2017-04-13] MEDS: MORPHINE SULFATE 4 MG/ML DISP.SYRIN. IV PRN (01:03)
[2017-04-13 05:24] LABS: HEMATOCRIT 35.3 % (36.0-47.0); HEMOGLOBIN 11.7 g/dL (12.0-15.5); RED BLOOD COUNT 4.21 x10^6/uL (3.50-5.40); RED CELL DISTRIBUTION WIDTH 13.6 % (11.5-14.5)
[2017-04-13 05:43] VITALS: BP 122/82
[2017-04-13] MEDS ORDERED: MAGNESIUM HYDROXIDE 2,400 MG/30 ML ORAL.SUSP. PO PRN (06:00)
[2017-04-13 06:36] VITALS: BP 125/62
[2017-04-13] MEDS: LEVOTHYROXINE 125 MCG TABLET PO SCH (07:03)
[2017-04-13] MEDS ORDERED: LANSOPRAZOLE 30 MG TAB.RAP.DR PO SCH (07:30)
[2017-04-13] MEDS: FERROUS SULFATE 325 MG TABLET. PO SCH ×2 (08:09→17:00)
[2017-04-13] MEDS: ASPIRIN ENTERIC COATED 325 MG TABLET.DR. PO SCH ×2 (08:09→20:54)
[2017-04-13] MEDS: CYCLOBENZAPRINE 10 MG TABLET. PO SCH ×3 (08:10→20:54)
[2017-04-13] MEDS: MULTIVITAMIN with MINERAL TABLET. PO SCH (08:10)
[2017-04-13] MEDS: SENNOSIDES/DOCUSATE 8.6/50MG TABLET. PO SCH (08:10)
[2017-04-13] MEDS: MELOXICAM 7.5 MG TABLET PO SCH (08:10)
[2017-04-13] MEDS: HYDROcodone/APAP 10/325 1 TAB TABLET PO PRN ×3 (08:11→21:01)
[2017-04-13] MEDS: FLUTICASONE 50MCG/NASAL SPRAY 16GM BOTTLE. NS SCH (08:15)
[2017-04-13] MEDS ORDERED: NON FORMULARY ITEM (Melatonin 5 MG) PO SCH (09:00)
[2017-04-13] MEDS ORDERED: FLUoxetine HCL 20 MG CAPSULE PO SCH (09:00)
--- NOTE | 2017-04-13 11:23 | PDOC ---
PROGRESS NOTES Subjective Subjective Pain controlled. No complaints. Objective Vital Signs Vital Signs Date Time Temp Pulse Resp B/P (MAP) Pulse Ox O2 Delivery O2 Flow Rate FiO2 04/13/17 08:15 Room Air 04/13/17 06:36 97.5 75 20 125/62 (83) 93 97.5 04/12/17 15:54 2.0 Physical Exam Dressing intact and dry. Hemovac and pain catheter in place. Thigh and calf soft. Good active range of motion of foot including dorsiflexion and plantar flexion. Cap refill at toes intact. No signs of compartment syndrome, DVT or neurovascular injury. Labs Laboratory Tests Test 04/12/17 09:10 04/13/17 04:56 Urine Collection Type Unknown Urine Color Yellow Urine Clarity Clear Urine pH 6.5 Urine Specific [place] <=1.005 Urine Protein Negative mg/dL (NEG-TRACE) Urine Glucose (UA) Negative mg/dL (NEG) Urine Ketones (Stick) Negative mg/dL (NEG) Urine Blood Negative (NEG) Urine Nitrite Negative (NEG) Urine Bilirubin Negative (NEG) Urine Urobilinogen Dipstick 0.2 mg/dL (0.2 mg/dL) Urine Leukocyte Esterase Negative (NEG) Urine RBC 0 /HPF (0-2) Urine WBC 0 /HPF (0-4) Urine Squamous Epithelial Cells Few /LPF Urine Bacteria 0 /HPF (0-FEW) White Blood Count 13.0 x10^3/uL (4.0-11.0) Red Blood Count 4.21 x10^6/uL (3.50-5.40) Hemoglobin 11.7 g/dL (12.0-15.5) Hematocrit 35.3 % (36.0-47.0) Mean Corpuscular Volume 84 fL (79-100) Mean Corpuscular Hemoglobin 28 pg (25-35) Mean Corpuscular Hemoglobin Concent 33 g/dL (31-37) Red Cell Distribution Width 13.6 % (11.5-14.5) Platelet Count 222 x10^3/uL (140-400) Laboratory Tests Test 04/13/17 04:56 White Blood Count 13.0 x10^3/uL (4.0-11.0) Red Blood Count 4.21 x10^6/uL (3.50-5.40) Hemoglobin 11.7 g/dL (12.0-15.5) Hematocrit 35.3 % (36.0-47.0) Mean Corpuscular Volume 84 fL (79-100) Mean Corpuscular Hemoglobin 28 pg (25-35) Mean Corpuscular Hemoglobin Concent 33 g/dL (31-37) Red Cell Distribution Width 13.6 % (11.5-14.5) Platelet Count 222 x10^3/uL (140-400) Imaging Postop X-rays reviewed by me. Satisfactory TKA alignment, without apparent complications. Possible extruded cement behind the femur, doubtful this will cause any problems. Report reviewed: PROCEDURE: KNEE RIGHT 2V Examination: 2 views of the right knee History: History of postop knee replacement Comparison: None available Findings: Right total knee arthroplasty changes in normal alignment. A drain is identified in the knee joint. Cutaneous surgical clips are identified. Postoperative changes identified in the posterior patella. Impression: Right total knee arthroplasty changes in normal alignment Assessment Assessment POD 1 TKA Problems: Plan Plan of Care Continue POC. PT and DVT prophylaxis. Drain out later today. ERUM GUTIERREZ MD Apr 13, 2017 11:23
[2017-04-13] MEDS ORDERED: BISACODYL 10 MG SUPP.RECT. PR PRN (16:00)
[2017-04-13] MEDS: ONDANSETRON ODT 4 MG TAB.RAPDIS. PO PRN (17:11)
[2017-04-13] MEDS: oxyCODONE ER 10 MG TAB.ER.12H PO SCH (18:15)
[2017-04-13 18:33] VITALS: BP 133/67
[2017-04-13] MEDS: MAGNESIUM CHLORIDE ER 64 MG TABLET.ER PO SCH ×2 (20:54)
[2017-04-13] MEDS: FLUoxetine HCL 20 MG CAPSULE PO SCH (20:54)
[2017-04-13] MEDS: LOSARTAN POTASSIUM 50 MG TABLET. PO SCH (20:54)
[2017-04-13] MEDS: ZOLPIDEM 5 MG TABLET. PO PRN (20:57)
[2017-04-13] MEDS: NIACIN ER 500 MG TABLET.ER PO SCH (21:07)
[2017-04-14] MEDS: HYDROcodone/APAP 10/325 1 TAB TABLET PO PRN ×2 (03:03→06:23)
[2017-04-14 05:00] VITALS: BP 114/61
[2017-04-14 05:03] LABS: HEMATOCRIT 35.3 % (36.0-47.0); HEMOGLOBIN 11.4 g/dL (12.0-15.5)
[2017-04-14] MEDS: PANTOPRAZOLE 40 MG TABLET.DR. PO SCH (06:23)
[2017-04-14] MEDS: LEVOTHYROXINE 125 MCG TABLET PO SCH (06:23)
[2017-04-14] MEDS: MULTIVITAMIN with MINERAL TABLET. PO SCH (09:02)
[2017-04-14] MEDS: FERROUS SULFATE 325 MG TABLET. PO SCH ×2 (09:02→17:14)
[2017-04-14] MEDS: MELOXICAM 7.5 MG TABLET PO SCH (09:02)
[2017-04-14] MEDS: ASPIRIN ENTERIC COATED 325 MG TABLET.DR. PO SCH ×2 (09:02→21:39)
[2017-04-14] MEDS: FLUTICASONE 50MCG/NASAL SPRAY 16GM BOTTLE. NS SCH (09:03)
[2017-04-14] MEDS: CYCLOBENZAPRINE 10 MG TABLET. PO SCH ×3 (09:03→21:40)
[2017-04-14] MEDS: SENNOSIDES/DOCUSATE 8.6/50MG TABLET. PO SCH (09:04)
[2017-04-14] MEDS: HYDROcodone/APAP 7.5/325MG 1 TAB TABLET PO PRN ×4 (09:49→19:40)
--- NOTE | 2017-04-14 10:17 | PDOC ---
PROGRESS NOTES Subjective Subjective Doing well today. Pain is controlled. Objective Vital Signs Vital Signs Date Time Temp Pulse Resp B/P (MAP) Pulse Ox O2 Delivery O2 Flow Rate FiO2 04/14/17 09:49 Room Air 04/14/17 06:23 20 04/14/17 05:00 98.4 104 114/61 (78) 93 98.4 04/12/17 15:54 2.0 Physical Exam Sitting in recliner with legs elevated. Prevena intact hooked up to hospital wound vac. Hemovac and pain catheter has been removed. Calf soft and nontender with a negative Santos's sign. Good dorsiflexion and plantarflexion with no evidence of neurovascular injury. Peripheral pulses and light touch sensation intact. Labs Laboratory Tests Test 04/13/17 04:56 04/14/17 04:37 White Blood Count 13.0 x10^3/uL (4.0-11.0) Red Blood Count 4.21 x10^6/uL (3.50-5.40) Hemoglobin 11.7 g/dL (12.0-15.5) 11.4 g/dL (12.0-15.5) Hematocrit 35.3 % (36.0-47.0) 35.3 % (36.0-47.0) Mean Corpuscular Volume 84 fL (79-100) Mean Corpuscular Hemoglobin 28 pg (25-35) Mean Corpuscular Hemoglobin Concent 33 g/dL (31-37) 32 g/dL (31-37) Red Cell Distribution Width 13.6 % (11.5-14.5) Platelet Count 222 x10^3/uL (140-400) Laboratory Tests Test 04/14/17 04:37 Hemoglobin 11.4 g/dL (12.0-15.5) Hematocrit 35.3 % (36.0-47.0) Mean Corpuscular Hemoglobin Concent 32 g/dL (31-37) Assessment Assessment POD #2 right TKA Problems: Plan Plan of Care Continue POC including DVT ppx and therapy. Plan for discharge to home tomorrow afternoon. EFREN STARKEY Apr 14, 2017 10:17
[2017-04-14] MEDS: ONDANSETRON ODT 4 MG TAB.RAPDIS. PO PRN (10:44)
[2017-04-14] MEDS: oxyCODONE ER 10 MG TAB.ER.12H PO SCH (17:14)
[2017-04-14 19:20] VITALS: BP 132/64
[2017-04-14] MEDS: MAGNESIUM CHLORIDE ER 64 MG TABLET.ER PO SCH ×2 (21:39)
[2017-04-14] MEDS: FLUoxetine HCL 20 MG CAPSULE PO SCH (21:40)
[2017-04-14] MEDS: NIACIN ER 500 MG TABLET.ER PO SCH (21:40)
[2017-04-14] MEDS: ZOLPIDEM 5 MG TABLET. PO PRN (21:40)
[2017-04-14] MEDS: LOSARTAN POTASSIUM 50 MG TABLET. PO SCH (21:41)
[2017-04-15] MEDS: HYDROcodone/APAP 10/325 1 TAB TABLET PO PRN ×3 (00:24→10:58)
[2017-04-15 05:04] LABS: HEMATOCRIT 30.9 % (36.0-47.0); HEMOGLOBIN 10.1 g/dL (12.0-15.5)
[2017-04-15 05:08] VITALS: BP 104/68
[2017-04-15] MEDS: PANTOPRAZOLE 40 MG TABLET.DR. PO SCH (06:30)
[2017-04-15] MEDS: LEVOTHYROXINE 125 MCG TABLET PO SCH (06:30)
[2017-04-15] MEDS: FERROUS SULFATE 325 MG TABLET. PO SCH (08:04)
[2017-04-15] MEDS: MELOXICAM 7.5 MG TABLET PO SCH (08:04)
[2017-04-15] MEDS: MULTIVITAMIN with MINERAL TABLET. PO SCH (08:05)
[2017-04-15] MEDS: SENNOSIDES/DOCUSATE 8.6/50MG TABLET. PO SCH (08:05)
[2017-04-15] MEDS: CYCLOBENZAPRINE 10 MG TABLET. PO SCH ×2 (08:05→14:26)
[2017-04-15] MEDS: ASPIRIN ENTERIC COATED 325 MG TABLET.DR. PO SCH (08:05)
[2017-04-15] MEDS: ONDANSETRON ODT 4 MG TAB.RAPDIS. PO PRN (09:05)
[2017-04-15] MEDS: FLUTICASONE 50MCG/NASAL SPRAY 16GM BOTTLE. NS SCH (09:05)
[2017-04-15] MEDS ORDERED: ASPI325T8 PO (13:25)
[2017-04-15] MEDS ORDERED: HYDR-2762 PO (13:26)
--- NOTE | 2017-04-15 13:26 | PDOC3 ---
Discharge Summary Visit Information Date of Admission: Apr 12, 2017 Date of Discharge: Apr 15, 2017 Admitting Diagnosis: right knee osteoarthritis pain Brief Hospital Course Allergies Allergies Coded Allergies Type Severity Reaction Last Updated Verified prochlorperazine Allergy Severe 04/12/17 Yes Fenofibrate Nanocrystallized Allergy Intermediate migraines 04/12/17 Yes celecoxib Allergy Intermediate 04/12/17 Yes colesevelam Allergy Intermediate 04/12/17 Yes dimenhydrinate Allergy Intermediate 04/12/17 Yes metoclopramide Allergy Intermediate itching 04/12/17 Yes pantoprazole sodium Allergy Intermediate rash 04/12/17 Yes pregabalin Allergy Intermediate rash 04/12/17 Yes selegiline Allergy Intermediate 04/12/17 Yes topiramate Allergy Intermediate 04/12/17 Yes vilazodone hydrochloride Allergy Intermediate 04/12/17 Yes lansoprazole Allergy Mild 04/14/17 Yes zonisamide Allergy Mild 04/12/17 Yes NSAIDS (Non-Steroidal Anti-Inflamma Adverse Reaction Intermediate ULCERS Yes Adctqee-Ppg-Nmj Reductase Inhibitor Adverse Reaction Intermediate INCREASED LIVER ENZYMES 04/12/17 Yes Vital Signs Vital Signs Date Time Temp Pulse Resp B/P (MAP) Pulse Ox O2 Delivery O2 Flow Rate FiO2 04/15/17 12:10 18 Room Air 04/15/17 05:08 99.2 89 104/68 (80) 97 99.2 Lab Results Laboratory Tests Test 04/14/17 04:37 04/15/17 04:50 Hemoglobin 11.4 g/dL (12.0-15.5) 10.1 g/dL (12.0-15.5) Hematocrit 35.3 % (36.0-47.0) 30.9 % (36.0-47.0) Mean Corpuscular Hemoglobin Concent 32 g/dL (31-37) 33 g/dL (31-37) Laboratory Tests Test 04/15/17 04:50 Hemoglobin 10.1 g/dL (12.0-15.5) Hematocrit 30.9 % (36.0-47.0) Mean Corpuscular Hemoglobin Concent 33 g/dL (31-37) Brief Hospital Course 56 year old who presented with knee osteoarthritis, for elective total knee arthroplasty. The patient underwent total knee arthroplasty under general anesthesia the day of admission. Perioperative antibiotics and DVT prophylaxis were used. Postoperatively physical therapy and case management were consulted. The patient progressed and is stable for discharge. Discharge Information Condition at Discharge: Stable Follow Up: Weeks (2) Disposition/Orders: D/C to Home Scheduled Aspirin (Aspirin), 81 MG PO DAILY, (Reported) Aspirin (Aspirin), 1 TAB PO BID, (Reported) Cyclobenzaprine Hcl (Cyclobenzaprine Hcl), 1 TAB PO TID, (Reported) Fluoxetine Hcl (Fluoxetine Hcl), 40 MG PO DAILY, (Reported) Fluticasone Propionate (Fluticasone Propionate Nasal [place]), 2 SPRAY NS DAILY, ( Reported) Krill/Om3/Dha/Epa/Om6/Lip/Astx (Krill Oil 1,000 Mg Softgel), 1 EACH PO DAILY, ( Reported) Levothyroxine Sodium (Levothyroxine Sodium), 125 MCG PO DAILY, (Reported) Losartan Potassium (Losartan Potassium), 100 MG PO HS, (Reported) Melatonin (Melatonin), 5 MG PO DAILY, (Reported) Niacin (Niaspan), 500 MG PO HS, (Reported) Omeprazole (Omeprazole), 1 CAP PO DAILY, (Reported) [Slow Mag], 238 MG PO HS, (Reported) [Xysol], 1 TAB PO HS, (Reported) Scheduled PRN Alprazolam (Alprazolam), 1 MG PO DAILY PRN for ANXIETY, (Reported) Trazodone Hcl (Trazodone Hcl), 50 MG PO DAILY PRN for MIGRAINE HEADACHE, ( Reported) Miscellaneous Medications [place]-3 Fatty Acids (Fish Oil), 1,400 MG PO, (Reported) Zolpidem Tartrate (Zolpidem Tartrate), 10 MG PO, (Reported) Discontinued Medications Ciprofloxacin Hcl (Cipro), 1 TAB PO BID, (Reported) Losartan Potassium (Losartan Potassium), 50 MG PO HS, (Reported) Patient Instructions Patient Instructions Patient Instructions Continue to WBAT with walker. Keep dressing dry and intact. F/U with [facility] in 10-14 days. Call for appointment. Physical therapy for TKA Continue DVT prophylaxis with aspirin 325mg twice daily. EFREN STARKEY Apr 15, 2017 13:26
[2017-04-15] MEDS: HYDROcodone/APAP 7.5/325MG 1 TAB TABLET PO PRN (14:26)
[2017-04-15 14:35] VITALS: BP 136/81
--- NOTE | 2017-04-16 15:11 | PATHOLOGY ---
PATHOLOGY REPORT * * * * * * * * FINAL DIAGNOSIS: "Right knee bone and tissue", removal: - Degenerative osteoarthritis. (SKM:mmaugustine; 04/15/2017) REPORT ELECTRONICALLY SIGNED BY: Chantal Peña M.D. DATE/TIME: 04/16/2017 15:10 * * * * * * * * GROSS PATHOLOGY: Received in formalin labeled "Lulu Weinberg, right knee bone and tissue," are multiple segments of bone, including tibial plateau, measuring 13.3 x 11.7 x 1.7 cm in aggregate dimensions admixed with soft tissue; meniscus is present. Upon extensive sectioning, eburnation of the articulating surfaces is not grossly evident. T[employer] sections of bone and soft tissue are submitted in cassette A1, following decalcification. ([facility]; 04/14/2017) INITIAL CPT CODE(S): A; 76601, 68268 Professional services [place] [facility] [place] [address] Technical services performed by [facility] at [address] [place] [address]. SPECIMEN(S) RECEIVED: A.Right knee bone and tissue CLINICAL HISTORY: Right knee OA PATIENT: LULU WEINBERG /AGE: 5 1960 (Age: 56) PATIENT #: [id number] ALT CASE #: SPECIMEN COLLECTION DATE: 04/12/2017 SPECIMEN RECEIVED DATE: 04/13/2017 [facility] - [address] [place] [address] - PHONE: [phone] * * * END OF REPORT * * *
== END 2017-04-15 14:40 | disposition home or self-care (01) | DRG 470 ==
LOC: SURHIP 08:45 → 4 SOUTHEST 17:09
PROVIDERS: ADMIT Orthopaedic Surgery; ATTEND Orthopaedic Surgery
PROC: 0SRC0J9 Replacement of Right Knee Joint with Synthetic Substitute, Cemented, Open Approach (ICD-10-PCS; principal; 2017-04-12 11:10)
DX: M17.11 Unilateral primary osteoarthritis, right knee (principal); I10 Essential (primary) hypertension; E03.9 Hypothyroidism, unspecified; E78.5 Hyperlipidemia, unspecified; M79.7 Fibromyalgia; Z96.652 Presence of left artificial knee joint; F32.9 Major depressive disorder, single episode, unspecified; F41.9 Anxiety disorder, unspecified; G43.909 Migraine, unspecified, not intractable, without status migrainosus; Z90.49 Acquired absence of other specified parts of digestive tract; Z98.51 Tubal ligation status; Z90.710 Acquired absence of both cervix and uterus; Z88.8 Allergy status to other drugs, medicaments and biological substances; Z82.3 Family history of stroke; Z87.891 Personal history of nicotine dependence; Z82.49 Family history of ischemic heart disease and other diseases of the circulatory system; Z86.73 Personal history of transient ischemic attack (TIA), and cerebral infarction without residual deficits; Z88.6 Allergy status to analgesic agent
CPT/HCPCS: 36415; 73560; 81001; 85014; 85018; 85027; 86850; 86900; 86901; 88305; 88311; 90686; C1713; J0171; J0690; J1100; J1885; J2250; J2270; J2370; J2405; J2704; J2710; J2795; J3010; J3370; J3490; J7030; J7120; Q0162; S0028; 97116; 97150; 97530; 97535; C1769; J2001

== ENCOUNTER → 2017-06-14 | Outpatient (CLI) | payer BC ==
[2017-04-29 15:00] VITALS: BP 131/77
[~2017-06-14] MED LIST changes: +ASPI325T8 PO; +CIPR500T94 PO; +FLUT16SP NS; -HYDROcodone/APAP 7.5/325MG 1 TAB TABLET PO PRN; -HYDROmorphone 2 MG/ML VIAL IV PRN; -IV RINGERS,LACTATED 1000ML 1,000 ML IV SCH; -LIDOCAINE 1% PF 2 ML VIAL. ID PRN; +LOSA100T6 PO; -MORPHINE SULFATE 2 MG/ML DISP.SYRIN. IV PRN; -MORPHINE SULFATE 5 MG, KETOROLAC 30 MG, ROPIVacaine 0.5% PF 60 ML, EPINEPHrine 0.5 MG i... INT ART ONE; +OMEP20CA9 PO; -ONDANSETRON PF 4 MG/2 ML VIAL. IV PRN; -TRANEXAMIC ACID 1,000 MG in IV NS 50ML -- 1ST BAG INJ ONE; -TRANEXAMIC ACID 1,000 MG in IV NS 50ML -- 2ND BAG INJ ONE; -fentaNYL PF VIAL 100 MCG/2 ML VIAL IV PRN
== END | disposition home or self-care (01) ==
LOC: LAB 13:23
PROVIDERS: ATTEND Orthopaedic Surgery
DX: Z00.00 Encounter for general adult medical examination without abnormal findings (principal); Z96.651 Presence of right artificial knee joint
CPT/HCPCS: 36415; 85651; 86140

== ENCOUNTER 2017-07-04 01:10 | Inpatient (IN) | payer BC ==
[~2017-07-04] VITALS: Ht 170.2 cm; Wt 147.0 kg
[2017-07-04] VITALS (7 sets, daily range): BP systolic 117–141; BP diastolic 60–92
[2017-07-04] MEDS ORDERED: ONDANSETRON PF 4 MG/2 ML VIAL. IV ONE (01:30)
[2017-07-04] MEDS ORDERED: fentaNYL PF VIAL 100 MCG/2 ML VIAL IV ONE (01:30)
--- NOTE | 2017-07-04 01:34 | PHYS DOC ---
Past Medical History Past Medical History: Diverticulitis, Diverticulosis, High Cholesterol, Hypertension, Hypothyroid, Migraines, Stroke, TIA Additional Past Medical Histor: FATTY LIVER DISEASE, CVA, ULCERS Past Surgical History: Appendectomy, Cholecystectomy, , Hysterectomy, Knee Replacement Additional Past Surgical Histo: TOTAL KNEE Additional Information: non smoker Alcohol Use: Occasionally Drug Use: None Adult General Chief Complaint Chief Complaint: KNEE SWELLING HPI HPI Patient is a 56 year old female who presents with recurrent right knee pain, redness and swelling for one week. She has had a prolonged hospital course that was initiated with a right total knee replacement on 04/12/[address] Patel. The post op course complicated by what was considered cellulitis to the right knee. She was taken for an I&D with revision on 05/11/17 however blood culture and operative specimen culture from the I&D were all no growth. She was treated with vancomycin and Zosyn and followed by infectious disease. She completed a course of po clindamycin. She's had sedimentation rates and C-reactive proteins monitored. Her last set was June 14 with the ESR of 50 and a CRP of 10.9. She states she was doing quite well and had full flexion and extension and then a week ago started noticing increased pain and swelling. Now she states she can barely flex at all. She has some redness and the leg feels warm to her. Increase Stiffness and swelling, she states, compared her left. She has appointment with Dr. Patel in the morning. She states she could not wait because of the pain. No documented fever. No drainage or changed her incision. Review of Systems Review of Systems Constitutional: Denies fever or chills Eyes: Denies change in visual acuity, redness, or eye pain HENT: Denies nasal congestion or sore throat Respiratory: Denies cough or shortness of breath Cardiovascular: No chest pain GI: Denies abdominal pain, nausea, vomiting, bloody stools or diarrhea : Denies dysuria or hematuria Musculoskeletal: Denies back pain; POS right knee joint pain Integument: Denies rash or skin lesions Neurologic: Denies headache, focal weakness or sensory changes All other systems were reviewed and found to be within normal limits, except as documented in this note. Current Medications Current Medications Current Medications Medications (Trade) Dose Ordered Sig/Aretha Start Time Stop Time Status Last Admin Dose Admin Fentanyl Citrate (Fentanyl 2ml Vial) 50 mcg 1X ONCE 07/04/17 01:30 07/04/17 01:31 DC 07/04/17 02:18 50 MCG Morphine Sulfate 2 mg PRN Q2HR PRN 07/04/17 03:00 07/05/17 02:59 UNV Ondansetron HCl (Zofran) 4 mg PRN Q8HRS PRN 07/04/17 03:00 07/05/17 02:59 UNV Piperacillin Sod/ Tazobactam Sod (Zosyn Per Pharmacy) 1 each PRN DAILY PRN 07/04/17 03:00 UNV Piperacillin Sod/ Tazobactam Sod 3.375 gm/Dextrose 50 ml @ 100 mls/hr 1X ONCE 07/04/17 03:00 07/04/17 03:29 UNV Potassium Chloride/Dextrose/ Sod Cl 1,000 ml @ 100 mls/hr 1X ONCE 07/04/17 03:00 07/04/17 12:59 UNV Vancomycin HCl (Vanco Per Pharmacy) 1 each PRN DAILY PRN 07/04/17 03:00 UNV Allergies Allergies Allergies Coded Allergies Type Severity Reaction Last Updated Verified prochlorperazine Allergy Severe 04/26/17 Yes Fenofibrate Nanocrystallized Allergy Intermediate migraines 04/26/17 Yes celecoxib Allergy Intermediate 04/26/17 Yes colesevelam Allergy Intermediate 04/26/17 Yes dimenhydrinate Allergy Intermediate 04/26/17 Yes metoclopramide Allergy Intermediate itching 04/26/17 Yes pantoprazole sodium Allergy Intermediate rash 04/26/17 Yes pregabalin Allergy Intermediate rash 04/26/17 Yes selegiline Allergy Intermediate 04/26/17 Yes topiramate Allergy Intermediate 04/26/17 Yes vilazodone hydrochloride Allergy Intermediate 04/26/17 Yes lansoprazole Allergy Mild 04/26/17 Yes zonisamide Allergy Mild 04/26/17 Yes NSAIDS (Non-Steroidal Anti-Inflamma Adverse Reaction Intermediate ULCERS 04/26 Yes Cermkgr-Vjo-Gku Reductase Inhibitor Adverse Reaction Intermediate INCREASED LIVER ENZYMES 04/26/17 Yes Physical Exam Physical Exam Constitutional: Well developed, well nourished, no acute distress, non-toxic appearance. Morbidly obese HENT: Normocephalic, atraumatic, bilateral external ears normal, oropharynx moist, no oral exudates, nose normal. Eyes: PERRLA, EOMI, conjunctiva normal, no discharge. Neck: Normal range of motion, no tenderness, supple, no stridor. Cardiovascular:Heart rate regular rhythm, no murmur Lungs & Thorax: Bilateral breath sounds clear to auscultation Abdomen: Bowel sounds normal, soft, no tenderness, no masses, no pulsatile masses. Skin: Warm, dry, no erythema, no rash. Back: No tenderness, no CVA tenderness. Extremities: Right lower extremity: right knee with faint erythema. Incision intact without drainage. Painful ROM noted. NVI distally. Neurologic: Alert and oriented X 3, normal motor function, normal sensory function, no focal deficits noted. Psychologic: Affect normal, judgement normal, mood normal. Current Patient Data Vital Signs Vital Signs Date Time Temp Pulse Resp B/P (MAP) Pulse Ox O2 Delivery O2 Flow Rate FiO2 07/04/17 02:26 86 21 151/66 (94) 96 Room Air 07/04/17 01:25 98.1 98.1 Lab Values Laboratory Tests Test 07/04/17 02:11 White Blood Count 6.2 x10^3/uL (4.0-11.0) Red Blood Count 4.53 x10^6/uL (3.50-5.40) Hemoglobin 11.7 g/dL (12.0-15.5) L Hematocrit 36.9 % (36.0-47.0) Mean Corpuscular Volume 82 fL (79-100) Mean Corpuscular Hemoglobin 26 pg (25-35) Mean Corpuscular Hemoglobin Concent 32 g/dL (31-37) Red Cell Distribution Width 16.1 % (11.5-14.5) H Platelet Count 226 x10^3/uL (140-400) Neutrophils (%) (Auto) 67 % (31-73) Lymphocytes (%) (Auto) 22 % (24-48) L Monocytes (%) (Auto) 7 % (0-9) Eosinophils (%) (Auto) 3 % (0-3) Basophils (%) (Auto) 1 % (0-3) Neutrophils # (Auto) 4.1 x10^3uL (1.8-7.7) Lymphocytes # (Auto) 1.4 x10^3/uL (1.0-4.8) Monocytes # (Auto) 0.4 x10^3/uL (0.0-1.1) Eosinophils # (Auto) 0.2 x10^3/uL (0.0-0.7) Basophils # (Auto) 0.1 x10^3/uL (0.0-0.2) Sodium Level 138 mmol/L (136-145) Potassium Level 4.5 mmol/L (3.5-5.1) Chloride Level 99 mmol/L (98-107) Carbon Dioxide Level 28 mmol/L (21-32) Anion Gap 11 (6-14) Blood Urea Nitrogen 9 mg/dL (7-20) Creatinine 0.7 mg/dL (0.6-1.0) Estimated GFR (Cockcroft-Gault) 85.9 Glucose Level 99 mg/dL (70-99) Calcium Level 8.9 mg/dL (8.5-10.1) C-Reactive Protein, Quantitative 13.3 mg/L (0-3.3) H Laboratory Tests 07/04/17 02:11 Laboratory Tests 07/04/17 02:11 Radiology/Procedures Radiology/Procedures [facility] [address] [place] [address] IMAGING REPORT Signed PATIENT: LULU WEINBERG ACCOUNT: [id number] : 1960 LOCATION: ER AGE: 56 SEX: F EXAM STATUS: REG ER ORD. PHYSICIAN: ARRON ULLOA MD REASON: s/p TKR; warm and swollen PROCEDURE: VENOUS LOWER EXTREMITY RIGHT EXAM: Right lower extremity venous Doppler. HISTORY: Right lower extremity pain and swelling after orthopedic surgery and infection. COMPARISON: None. FINDINGS: Grayscale and Doppler analysis of the right lower extremity deep venous system was performed with graded compression and augmentation. The common femoral, greater saphenous, superficial femoral, popliteal and calf veins were assessed. There is no evidence of deep venous thrombosis. There is a complicated fluid collection within the subcutaneous tissues anterior to the right knee measuring 5.0 x 2.6 x 2.0 cm IMPRESSION: 1. No evidence of deep venous thrombosis. 2. Complicated 5 x 3 x 2 cm fluid collection anterior to the right knee. Correlate for a hematoma, abscess or severe prepatellar bursitis. Electronically signed by: Colette Jeff MD (07/04/2017 2:10 AM) [id number] DICTATED and SIGNED BY: LATONIA JEFF MD DATE: 07/04/17207 CC: ARRON ULLOA MD; RUTH PEREZ ~ Course & Med Decision Making Course & Med Decision Making Evaluated patient upon arrival. Reviewed her extensive history. Concerned about reoccurrence of her cellulitis/inflammatory change. Will check Doppler to r/o DVT. Lab sent for CRP/ESR and blood culture. IV Fentanyl and zofran for pain control. US verbal report at 0150 am: complex fluid collection noted but no DVT. At 0215 AM: very difficult stick; no IV or blood yet. At 0255 am: lab returning. CRP is elevated to 13.3. Her pain is not controlled here with IV fentanyl. In light of her history and the US report of fluid collection will admit. Contacted Ortho ( Dr Jin external relations director); admit to Hospitalist. Started Zosyn and Vancomycin ( prior antibiotics used per ID). She will need a PICC line if she is to have continued IV antibiotics.Kept NPO. I have spoken with the patient and/or caregivers. I have explained the patient' s condition, diagnosis and treatment plan based on the information available to me at this time. I have answered the patient's and/or caregiver's questions and addressed any concerns. The patient and/or caregivers have as good an understanding of the patient's diagnosis, condition and treatment plan as can be expected at this point. The patient has been stabilized within the capability of the emergency department. The patient will be transported for further care and management or will be moved to an observation or inpatient service. I have communicated with the staff or medical practitioner taking over this patient's care. I have assessed this patient clinically and believe that their condition requires admission to the hospital. After consulting the admitting physician about this case, they have asked that I admit this patient to their service as an inpatient based on the clinical presentation and my impression. Dragon Disclaimer Dragon Disclaimer This electronic medical record was generated, in whole or in part, using a voice recognition dictation system. Departure Departure Impression: Primary Impression: Cellulitis of right knee Additional Impressions: Right knee pain History of total knee replacement Disposition: 09 ADMITTED INPATIENT Admitting Physician: Estefani Pacheco Referrals: RUTH PEREZ (PCP) Problem Qualifiers Additional Impressions: Right knee pain Chronicity: chronic Qualified Codes: M25.561 - Pain in right knee; G89.29 - Other chronic pain History of total knee replacement Laterality: right Qualified Codes: Z96.651 - Presence of right artificial knee joint ARRON ULLOA MD Jul 04, 2017 01:34
--- NOTE | 2017-07-04 02:13 | RAD ---
EXAM: Right lower extremity venous Doppler. HISTORY: Right lower extremity pain and swelling after orthopedic surgery and infection. COMPARISON: None. FINDINGS: Grayscale and Doppler analysis of the right lower extremity deep venous system was performed with graded compression and augmentation. The common femoral, greater saphenous, superficial femoral, popliteal and calf veins were assessed. There is no evidence of deep venous thrombosis. There is a complicated fluid collection within the subcutaneous tissues anterior to the right knee measuring 5.0 x 2.6 x 2.0 cm IMPRESSION: 1. No evidence of deep venous thrombosis. 2. Complicated 5 x 3 x 2 cm fluid collection anterior to the right knee. Correlate for a hematoma, abscess or severe prepatellar bursitis. Electronically signed by: Colette Jeff MD (07/04/2017 2:10 AM) [facility]
[2017-07-04 02:25] LABS: BASO # 0.1 x10^3/uL (0.0-0.2); BASO % 1 % (0-3); EOS % 3 % (0-3); HEMATOCRIT 36.9 % (36.0-47.0); HEMOGLOBIN 11.7 g/dL (12.0-15.5); LYMPH # 1.4 x10^3/uL (1.0-4.8); LYMPH % 22 % (24-48); MEAN CORPUSCULAR HEMOGLOBIN 26 pg (25-35); MEAN CORPUSCULAR HGB CONC 32 g/dL (31-37); MEAN CORPUSCULAR VOLUME 82 fL (79-100); MONO % 7 % (0-9); NEUT % 67 % (31-73); PLATELET COUNT 226 x10^3/uL (140-400); RED BLOOD COUNT 4.53 x10^6/uL (3.50-5.40); RED CELL DISTRIBUTION WIDTH 16.1 % (11.5-14.5); WHITE BLOOD COUNT 6.2 x10^3/uL (4.0-11.0)
[2017-07-04 02:39] LABS: CALCIUM 8.9 mg/dL (8.5-10.1); CREATININE 0.7 mg/dL (0.6-1.0); GFR 85.9; POTASSIUM 4.5 mmol/L (3.5-5.1)
[2017-07-04 02:41] LABS: C-REACTIVE PROTEIN 13.3 mg/L (0-3.3)
[2017-07-04] MEDS ORDERED: PIP/TAZO PER PHARMACY MC PRN ×2 (03:00→04:00)
[2017-07-04] MEDS ORDERED: VANCOMYCIN PER PHARMACY MC PRN (03:00)
[2017-07-04] MEDS: MORPHINE SULFATE 2 MG/ML DISP.SYRIN. IV PRN ×5 (03:10→15:59)
[2017-07-04] MEDS ORDERED: PIPERACILLIN/TAZOBACTAM 3.375 GM in IV DEXTROSE 5% 50 ML IV ONE (03:30)
[2017-07-04] MEDS ORDERED: ONDANSETRON PF 4 MG/2 ML VIAL. IV PRN (03:30)
[2017-07-04] MEDS ORDERED: POTASSIUM CL 20MEQ D5-0.45NACL 1,000 ML IV ONE (03:30)
[2017-07-04] MEDS ORDERED: PIPERACILLIN/TAZO IV Push 4.5 GM VIAL. IVP ONE (03:45)
[2017-07-04] MEDS ORDERED: VANCOMYCIN 2 GM in IV DEXTROSE 5 %-0.2 % NACL 500 ML IV ONE (04:00)
[2017-07-04] MEDS: VANCOMYCIN PER PHARMACY MC PRN ×2 (05:30→05:31)
[2017-07-04] MEDS: VANCOMYCIN 2 GM in IV DEXTROSE 5 %-0.2 % NACL 500 ML IV SCH ×2 (11:38→20:22)
[2017-07-04] MEDS: MORPHINE SULFATE 4 MG/ML DISP.SYRIN. IV PRN ×5 (11:38→22:39)
[2017-07-04] MEDS: PIPERACILLIN/TAZO IV Push 4.5 GM VIAL. IVP SCH ×2 (11:39→17:22)
[2017-07-04] MEDS ORDERED: ALPRAZolam 1 MG TABLET PO PRN (12:30)
--- NOTE | 2017-07-04 12:42 | HP ---
ADMIT DATE: 07/04/2017 CHIEF COMPLAINT: Right knee pain and cellulitis. HISTORY OF PRESENT ILLNESS: The patient is a pleasant 56-year-old female who had a right knee replacement in March of this year. She has been having problems with postop pain, and now, she has developed some swelling with some cellulitis. She has actually had incision and drainage on 05/11/2017. Apparently, there was no growth on the cultures. She has been treated with vancomycin and Zosyn. I discussed the case with ER physician. We are going to admit the patient and consult orthopedics. PAST MEDICAL HISTORY: Right knee replacement, postop cellulitis, diverticulitis, hypertension, hyperlipidemia, hypothyroidism, migraine, stroke, TIA, fatty liver disease, ulcers, cholecystectomy, , hysterectomy, knee replacement. ALLERGIES: MULTIPLE, PLEASE SEE THE RECORD, BUT SHE DOES HAVE ALLERGIES TO NSAIDS, FIBRIC ACIDS, STATINS, METOCLOPRAMIDE, PROTONIX, PREGABALIN. FAMILY HISTORY: Diabetes. SOCIAL HISTORY: She does not drink, smoke or take drugs. MEDICATIONS: Reviewed. REVIEW OF SYSTEMS: GENERAL: No history of weight change, weakness or fevers. SKIN: No bruising, hair changes or rashes. EYES: No blurred, double or loss of vision. NOSE AND THROAT: No history of nosebleeds, hoarseness or sore throat. HEART: No history of palpitations, chest pain or shortness of breath on exertion. LUNGS: Denies cough, hemoptysis, wheezing or shortness of breath. GASTROINTESTINAL: Denies changes in appetite, nausea, vomiting, diarrhea or constipation. GENITOURINARY: No history of frequency, urgency, hesitancy or nocturia. NEUROLOGIC: Denies history of numbness, tingling, tremor or weakness. PSYCHIATRIC: No history of panic, anxiety or depression. ENDOCRINE: No history of heat or cold intolerance, polyuria or polydipsia. EXTREMITIES: Complains of right knee pain. PHYSICAL EXAMINATION: VITAL SIGNS: Temperature afebrile, pulse 98, respirations 18, blood pressure 144/92. GENERAL: She is alert, cooperative, complaining of pain. HEART: Normal S1, S2. LUNGS: Clear. ABDOMEN: Soft. EXTREMITIES: Right knee is swollen. There is some underlying cellulitis. ENDOCRINE: No thyromegaly. LYMPHATICS: No cervical nodes. HEMATOPOIETIC: No bruising. LABORATORY DATA: White count 6, hemoglobin 12, platelets 226. Electrolytes are normal. C-reactive protein is high at 13.3. ASSESSMENT AND PLAN: Postop right knee cellulitis with possible effusion versus infection. The patient has been admitted. We will start IV antibiotics. Consult ID, consult Orthopedics. Continue home meds, p.r.n. narcotics, IV fluids, frequent labs. SOL BARRETT DO DR: VERONICA/millie JOB#: [id number] / [id number]
[2017-07-04] MEDS: FAMOTIDINE 20 MG TABLET. PO SCH ×2 (13:00→20:22)
[2017-07-04] MEDS: CETIRIZINE HCL 10 MG TABLET. PO SCH (13:00)
[2017-07-04] MEDS: ASPIRIN 325 MG TABLET PO SCH ×2 (13:00→20:22)
[2017-07-04] MEDS: LEVOTHYROXINE 125 MCG TABLET PO SCH (13:00)
[2017-07-04 13:05] LABS: BILIRUBIN,URINE NEGATIVE (NEG); GLUCOSE,URINE NEGATIVE (NEG); NITRITE,URINE NEGATIVE (NEG); PROTEIN,URINE NEGATIVE (NEG-TRACE)
[2017-07-04 13:20] LABS: BACTERIA,URINE 0 /HPF (0-FEW); RBC,URINE 0 /HPF (0-2); SQUAMOUS EPITHELIAL CELL,UR MANY /LPF; WBC,URINE OCC /HPF (0-4)
[2017-07-04] MEDS: CYCLOBENZAPRINE 10 MG TABLET. PO SCH ×2 (14:00→20:22)
[2017-07-04] MEDS: FLUoxetine HCL 20 MG CAPSULE PO SCH (17:20)
[2017-07-04] MEDS: LOSARTAN POTASSIUM 50 MG TABLET. PO SCH (17:21)
[2017-07-04] MEDS: HYDROcodone/APAP 7.5/325MG 1 TAB TABLET PO PRN (17:21)
[2017-07-04] MEDS: FLUTICASONE 50MCG/NASAL SPRAY 16GM BOTTLE. NS SCH (17:23)
[2017-07-04] MEDS: MAGNESIUM CHLORIDE ER 64 MG TABLET.ER PO SCH ×2 (20:22)
[2017-07-04] MEDS: NIACIN ER 500 MG TABLET.ER PO SCH (20:22)
[2017-07-04] MEDS: traZODone 50 MG TABLET. PO PRN (22:39)
[2017-07-05] MEDS: MORPHINE SULFATE 4 MG/ML DISP.SYRIN. IV PRN ×7 (01:29→21:27)
[2017-07-05 03:00] VITALS: BP 110/62
[2017-07-05 05:13] LABS: BASO # 0.1 x10^3/uL (0.0-0.2); BASO % 1 % (0-3); EOS % 5 % (0-3); HEMATOCRIT 35.8 % (36.0-47.0); HEMOGLOBIN 11.1 g/dL (12.0-15.5); LYMPH # 0.9 x10^3/uL (1.0-4.8); LYMPH % 20 % (24-48); MEAN CORPUSCULAR HEMOGLOBIN 26 pg (25-35); MEAN CORPUSCULAR HGB CONC 31 g/dL (31-37); MEAN CORPUSCULAR VOLUME 83 fL (79-100); MONO % 7 % (0-9); NEUT % 66 % (31-73); PLATELET COUNT 203 x10^3/uL (140-400); RED BLOOD COUNT 4.31 x10^6/uL (3.50-5.40); RED CELL DISTRIBUTION WIDTH 15.8 % (11.5-14.5); WHITE BLOOD COUNT 4.6 x10^3/uL (4.0-11.0)
[2017-07-05] MEDS: VANCOMYCIN 2 GM in IV DEXTROSE 5 %-0.2 % NACL 500 ML IV SCH (05:39)
[2017-07-05 05:51] LABS: ALBUMIN 3.1 g/dL (3.4-5.0); ALBUMIN/GLOBULIN RATIO 0.9 (1.0-1.7); CALCIUM 9.3 mg/dL (8.5-10.1); GFR 56.9; POTASSIUM 4.1 mmol/L (3.5-5.1); TOTAL BILIRUBIN 0.7 mg/dL (0.2-1.0); TOTAL PROTEIN 6.7 g/dL (6.4-8.2)
[2017-07-05] MEDS: VANCOMYCIN PER PHARMACY MC PRN ×2 (06:08→12:12)
[2017-07-05] MEDS: LEVOTHYROXINE 125 MCG TABLET PO SCH (06:28)
[2017-07-05] MEDS: PIPERACILLIN/TAZO IV Push 4.5 GM VIAL. IVP SCH ×3 (06:29→12:54)
[2017-07-05 07:15] VITALS: BP 119/61
[2017-07-05] MEDS: ONDANSETRON PF 4 MG/2 ML VIAL. IV PRN (08:43)
[2017-07-05] MEDS ORDERED: DHA PO SCH (09:00)
[2017-07-05] MEDS ORDERED: KRILL PO SCH (09:00)
[2017-07-05] MEDS ORDERED: [UNRECOGNIZED DRUG - OTHER] PO SCH (09:00)
[2017-07-05] MEDS ORDERED: ASTX PO SCH (09:00)
[2017-07-05] MEDS ORDERED: NON FORMULARY ITEM (Melatonin 5 MG) PO SCH (09:00)
[2017-07-05] MEDS ORDERED: LIP PO SCH (09:00)
[2017-07-05] MEDS ORDERED: EPA PO SCH (09:00)
[2017-07-05] MEDS: CETIRIZINE HCL 10 MG TABLET. PO SCH (09:44)
[2017-07-05] MEDS: FAMOTIDINE 20 MG TABLET. PO SCH ×2 (09:44→21:26)
[2017-07-05] MEDS: CYCLOBENZAPRINE 10 MG TABLET. PO SCH ×3 (09:44→21:26)
[2017-07-05] MEDS: FLUoxetine HCL 20 MG CAPSULE PO SCH (09:44)
[2017-07-05] MEDS: HYDROcodone/APAP 7.5/325MG 1 TAB TABLET PO PRN ×3 (09:45→23:35)
[2017-07-05] MEDS: ASPIRIN 325 MG TABLET PO SCH ×2 (09:45→21:25)
[2017-07-05] MEDS: LOSARTAN POTASSIUM 50 MG TABLET. PO SCH (09:45)
[2017-07-05] MEDS: FLUTICASONE 50MCG/NASAL SPRAY 16GM BOTTLE. NS SCH (09:46)
[2017-07-05 11:01] VITALS: BP 152/87
[2017-07-05] MEDS ORDERED: ACETAMINOPHEN 500 MG TABLET PO PRN (12:30)
--- NOTE | 2017-07-05 13:01 | PDOC ---
PROGRESS NOTES Chief Complaint Chief Complaint Right knee fluid collection could be abscess, hematoma, measuring 5 Cms in greatest pocket/diameter Obesity ANxiety sec to above med illness HTN, dyslipidemia - chronic stable [place] liver Hypothyroidism on supplementation Anemia NOS PCM plaln: Await orthopedics Would keep nothing by mouth for now given possible need for fluid tap We'll send fluid to tap to laboratory for analysis BMP tomorrow since started on vancomycin per ER per pharmacy protocol PT OT Resume home meds Some nausea today hence Zofran History of Present Illness History of Present Illness Can flex right knee, no fever, minimal pain. Ultrasound did not show any leg clot but did show fluid collection 5 CMC greatest pocket diameter that could be abscess hematoma. ESR is 45 Status post doxycycline for one month and last dose was June 23. She did see Dr.S quiros as outpatient 2 weeks after discharge in April for similar issues about the right knee. Cultures back then was negative. She stayed at [facility] for 2 weeks last admit on Apr 2017.,and has been home for about 3 weeks and now this admission. Patient is nontoxic appearing- orthopedics is consulted yet to see. Might need some fluid tap to get the fluid out and send this to the laboratory. I did held off infectious disease consult for now as patient is nontoxic appearing, no white count and recently finished a one month course of doxycycline with negative cultures in the office.. Sedimentation rate minimally elevated at 45. We'll await further studies for fluid and taper antibiotics according to those fluid sent to lab. Started on Vanco and Zosyn by ER. We will do BMP tomorrow given patient's on vancomycin per pharmacy. Vitals Vitals Vital Signs Date Time Temp Pulse Resp B/P (MAP) Pulse Ox O2 Delivery O2 Flow Rate FiO2 07/05/17 12:53 Room Air 07/05/17 11:01 97.7 76 16 152/87 (108) 98 97.7 Physical Exam General: Alert, Oriented X3, Cooperative Heart: Regular rate, Normal S1, Normal S2 Lungs: Clear Abdomen: Normal bowel sounds, Soft Extremities: No clubbing, No cyanosis, Other (right knee scar, full flexion, no erythema no warmth, but has some swelling notable as compared to the left knee) Skin: No rashes, No breakdown Labs LABS Laboratory Tests Test 07/05/17 04:50 White Blood Count 4.6 x10^3/uL (4.0-11.0) Red Blood Count 4.31 x10^6/uL (3.50-5.40) Hemoglobin 11.1 g/dL (12.0-15.5) Hematocrit 35.8 % (36.0-47.0) Mean Corpuscular Volume 83 fL (79-100) Mean Corpuscular Hemoglobin 26 pg (25-35) Mean Corpuscular Hemoglobin Concent 31 g/dL (31-37) Red Cell Distribution Width 15.8 % (11.5-14.5) Platelet Count 203 x10^3/uL (140-400) Neutrophils (%) (Auto) 66 % (31-73) Lymphocytes (%) (Auto) 20 % (24-48) Monocytes (%) (Auto) 7 % (0-9) Eosinophils (%) (Auto) 5 % (0-3) Basophils (%) (Auto) 1 % (0-3) Neutrophils # (Auto) 3.1 x10^3uL (1.8-7.7) Lymphocytes # (Auto) 0.9 x10^3/uL (1.0-4.8) Monocytes # (Auto) 0.3 x10^3/uL (0.0-1.1) Eosinophils # (Auto) 0.2 x10^3/uL (0.0-0.7) Basophils # (Auto) 0.1 x10^3/uL (0.0-0.2) Sodium Level 139 mmol/L (136-145) Potassium Level 4.1 mmol/L (3.5-5.1) Chloride Level 102 mmol/L (98-107) Carbon Dioxide Level 28 mmol/L (21-32) Anion Gap 9 (6-14) Blood Urea Nitrogen 6 mg/dL (7-20) Creatinine 1.0 mg/dL (0.6-1.0) Estimated GFR (Cockcroft-Gault) 56.9 BUN/Creatinine Ratio 6 (6-20) Glucose Level 100 mg/dL (70-99) Calcium Level 9.3 mg/dL (8.5-10.1) Total Bilirubin 0.7 mg/dL (0.2-1.0) Aspartate Amino Transf (AST/SGOT) 69 U/L (15-37) Alanine Aminotransferase (ALT/SGPT) 42 U/L (14-59) Alkaline Phosphatase 146 U/L (46-116) Total Protein 6.7 g/dL (6.4-8.2) Albumin 3.1 g/dL (3.4-5.0) Albumin/Globulin Ratio 0.9 (1.0-1.7) Vancomycin Level Trough 44.9 mcg/mL (10.0-20.0) Vancomycin Last Dose Date Vancomycin Last Dose Time 2030 Review of Systems Review of Systems Per history of present illness, the rest 14 point systems reviewed negative A 14 point ROS was completed with the following noted as positive: Other systems reviewed and negative. \CONSTITUTIONAL: No fever or chills EYES: No recent changes SKIN: No rash or itching CARDIOVASCULAR: No chest pain, syncope, palpitations, or edema RESPIRATORY: No SOB or cough GASTROINTESTINAL: No nausea, vomiting or abdominal pain NEUROLOGICAL: No headaches or weakness ENDOCRINE: No cold or heat intolerance GENITOURINARY: No urgency or frequency of urination MUSCULOSKELETAL: No back pain or joint pain LYMPHATICS: No enlarged lymph nodes PSYCHIATRIC: No anxiety or depression Assessment and Plan Assessmemt and Plan Problems Medical Problems: (1) Cellulitis of right knee Status: Acute (2) Right knee pain Status: Acute Problems: Comment Review of Relevant I have reviewed the following items radha (where applicable) has been applied. Labs Laboratory Tests Test 07/04/17 02:11 07/04/17 12:00 07/05/17 04:50 White Blood Count 6.2 x10^3/uL (4.0-11.0) 4.6 x10^3/uL (4.0-11.0) Red Blood Count 4.53 x10^6/uL (3.50-5.40) 4.31 x10^6/uL (3.50-5.40) Hemoglobin 11.7 g/dL (12.0-15.5) 11.1 g/dL (12.0-15.5) Hematocrit 36.9 % (36.0-47.0) 35.8 % (36.0-47.0) Mean Corpuscular Volume 82 fL (79-100) 83 fL (79-100) Mean Corpuscular Hemoglobin 26 pg (25-35) 26 pg (25-35) Mean Corpuscular Hemoglobin Concent 32 g/dL (31-37) 31 g/dL (31-37) Red Cell Distribution Width 16.1 % (11.5-14.5) 15.8 % (11.5-14.5) Platelet Count 226 x10^3/uL (140-400) 203 x10^3/uL (140-400) Neutrophils (%) (Auto) 67 % (31-73) 66 % (31-73) Lymphocytes (%) (Auto) 22 % (24-48) 20 % (24-48) Monocytes (%) (Auto) 7 % (0-9) 7 % (0-9) Eosinophils (%) (Auto) 3 % (0-3) 5 % (0-3) Basophils (%) (Auto) 1 % (0-3) 1 % (0-3) Neutrophils # (Auto) 4.1 x10^3uL (1.8-7.7) 3.1 x10^3uL (1.8-7.7) Lymphocytes # (Auto) 1.4 x10^3/uL (1.0-4.8) 0.9 x10^3/uL (1.0-4.8) Monocytes # (Auto) 0.4 x10^3/uL (0.0-1.1) 0.3 x10^3/uL (0.0-1.1) Eosinophils # (Auto) 0.2 x10^3/uL (0.0-0.7) 0.2 x10^3/uL (0.0-0.7) Basophils # (Auto) 0.1 x10^3/uL (0.0-0.2) 0.1 x10^3/uL (0.0-0.2) Erythrocyte Sedimentation Rate 45 (0-25) Sodium Level 138 mmol/L (136-145) 139 mmol/L (136-145) Potassium Level 4.5 mmol/L (3.5-5.1) 4.1 mmol/L (3.5-5.1) Chloride Level 99 mmol/L (98-107) 102 mmol/L (98-107) Carbon Dioxide Level 28 mmol/L (21-32) 28 mmol/L (21-32) Anion Gap 11 (6-14) 9 (6-14) Blood Urea Nitrogen 9 mg/dL (7-20) 6 mg/dL (7-20) Creatinine 0.7 mg/dL (0.6-1.0) 1.0 mg/dL (0.6-1.0) Estimated GFR (Cockcroft-Gault) 85.9 56.9 Glucose Level 99 mg/dL (70-99) 100 mg/dL (70-99) Calcium Level 8.9 mg/dL (8.5-10.1) 9.3 mg/dL (8.5-10.1) C-Reactive Protein, Quantitative 13.3 mg/L (0-3.3) Urine Collection Type Unknown Urine Color Yellow Urine Clarity Clear Urine pH 6.0 Urine Specific [place] 1.015 Urine Protein Negative mg/dL (NEG-TRACE) Urine Glucose (UA) Negative mg/dL (NEG) Urine Ketones (Stick) Negative mg/dL (NEG) Urine Blood Negative (NEG) Urine Nitrite Negative (NEG) Urine Bilirubin Negative (NEG) Urine Urobilinogen Dipstick 1.0 mg/dL (0.2 mg/dL) Urine Leukocyte Esterase Trace (NEG) Urine RBC 0 /HPF (0-2) Urine WBC Occ /HPF (0-4) Urine Squamous Epithelial Cells Many /LPF Urine Bacteria 0 /HPF (0-FEW) Urine Mucus Slight /LPF BUN/Creatinine Ratio 6 (6-20) Total Bilirubin 0.7 mg/dL (0.2-1.0) Aspartate Amino Transf (AST/SGOT) 69 U/L (15-37) Alanine Aminotransferase (ALT/SGPT) 42 U/L (14-59) Alkaline Phosphatase 146 U/L (46-116) Total Protein 6.7 g/dL (6.4-8.2) Albumin 3.1 g/dL (3.4-5.0) Albumin/Globulin Ratio 0.9 (1.0-1.7) Vancomycin Level Trough 44.9 mcg/mL (10.0-20.0) Vancomycin Last Dose Date Vancomycin Last Dose Time 2030 Laboratory Tests Test 07/05/17 04:50 White Blood Count 4.6 x10^3/uL (4.0-11.0) Red Blood Count 4.31 x10^6/uL (3.50-5.40) Hemoglobin 11.1 g/dL (12.0-15.5) Hematocrit 35.8 % (36.0-47.0) Mean Corpuscular Volume 83 fL (79-100) Mean Corpuscular Hemoglobin 26 pg (25-35) Mean Corpuscular Hemoglobin Concent 31 g/dL (31-37) Red Cell Distribution Width 15.8 % (11.5-14.5) Platelet Count 203 x10^3/uL (140-400) Neutrophils (%) (Auto) 66 % (31-73) Lymphocytes (%) (Auto) 20 % (24-48) Monocytes (%) (Auto) 7 % (0-9) Eosinophils (%) (Auto) 5 % (0-3) Basophils (%) (Auto) 1 % (0-3) Neutrophils # (Auto) 3.1 x10^3uL (1.8-7.7) Lymphocytes # (Auto) 0.9 x10^3/uL (1.0-4.8) Monocytes # (Auto) 0.3 x10^3/uL (0.0-1.1) Eosinophils # (Auto) 0.2 x10^3/uL (0.0-0.7) Basophils # (Auto) 0.1 x10^3/uL (0.0-0.2) Sodium Level 139 mmol/L (136-145) Potassium Level 4.1 mmol/L (3.5-5.1) Chloride Level 102 mmol/L (98-107) Carbon Dioxide Level 28 mmol/L (21-32) Anion Gap 9 (6-14) Blood Urea Nitrogen 6 mg/dL (7-20) Creatinine 1.0 mg/dL (0.6-1.0) Estimated GFR (Cockcroft-Gault) 56.9 BUN/Creatinine Ratio 6 (6-20) Glucose Level 100 mg/dL (70-99) Calcium Level 9.3 mg/dL (8.5-10.1) Total Bilirubin 0.7 mg/dL (0.2-1.0) Aspartate Amino Transf (AST/SGOT) 69 U/L (15-37) Alanine Aminotransferase (ALT/SGPT) 42 U/L (14-59) Alkaline Phosphatase 146 U/L (46-116) Total Protein 6.7 g/dL (6.4-8.2) Albumin 3.1 g/dL (3.4-5.0) Albumin/Globulin Ratio 0.9 (1.0-1.7) Vancomycin Level Trough 44.9 mcg/mL (10.0-20.0) Vancomycin Last Dose Date Vancomycin Last Dose Time 2029 Microbiology 07/04/17 Blood Culture - Preliminary, Resulted NO GROWTH AFTER 1 DAY 07/04/17 Urine Culture - Preliminary, Resulted 07/04/17 Urine Culture Result 1 (DONATO) - Preliminary, Resulted Medications Current Medications Fentanyl Citrate (Fentanyl 2ml Vial) 50 mcg 1X ONCE IV Last administered on 02:18; Start 07/04/17 at 01:30; Stop 07/04/17 at 01:31; Status DC Ondansetron HCl (Zofran) 4 mg 1X ONCE IV Last administered on 07/04/17 02:17 ; Start 07/04/17 at 01:30; Stop 07/04/17 at 01:31; Status DC Piperacillin Sod/ Tazobactam Sod 3.375 gm/Dextrose 50 ml @ 100 mls/hr 1X ONCE IV ; Start 07/04/17 at 03:30; Stop 07/04/17 at 03:59; Status Cancel Ondansetron HCl (Zofran) 4 mg PRN Q8HRS PRN IV NAUSEA/VOMITING; Start at 03:30; Stop 07/05/17 at 03:29; Status DC Morphine Sulfate 2 mg PRN Q2HR PRN IV PAIN Last administered on 07/04/17 15: 59; Start 07/04/17 at 03:00; Stop 07/05/17 at 02:59; Status DC Vancomycin HCl (Vanco Per Pharmacy) 1 each PRN DAILY PRN MC SEE COMMENTS; Start 07/04/17 at 03:00; Stop 07/04/17 at 04:00; Status DC Piperacillin Sod/ Tazobactam Sod (Zosyn Per Pharmacy) 1 each PRN DAILY PRN MC SEE COMMENTS; Start 07/04/17 at 03:00; Stop 07/04/17 at 04:00; Status DC Potassium Chloride/Dextrose/ Sod Cl 1,000 ml @ 100 mls/hr 1X ONCE IV Last administered on 07/04/17 04:37; Start 07/04/17 at 03:30; Stop 07/04/17 at 13 :29; Status DC Piperacillin Sod/ Tazobactam Sod (Zosyn) 4.5 gm ONCE ONCE IVP Last administered on 07/04/17 04:38; Start 07/04/17 at 03:45; Stop 07/04/17 at 03 :46; Status DC Vancomycin HCl 2 gm/Dextrose/ Sodium Chloride 500 ml @ 250 mls/hr 1X ONCE IV Last administered on 07/04/17 04:39; Start 07/04/17 at 04:00; Stop 07/04/17 at 05:59; Status DC Vancomycin HCl (Vanco Per Pharmacy) 1 each PRN DAILY PRN MC SEE COMMENTS Last administered on 07/05/17 12:12; Start 07/04/17 at 04:00 Piperacillin Sod/ Tazobactam Sod (Zosyn Per Pharmacy) 1 each PRN DAILY PRN MC SEE COMMENTS; Start 07/04/17 at 04:00 Piperacillin Sod/ Tazobactam Sod (Zosyn) 4.5 gm Q6HRS IVP Last administered on 07/05/17 12:54; Start 07/04/17 at 12:00 Vancomycin HCl 2 gm/Dextrose/ Sodium Chloride 500 ml @ 250 mls/hr Q8H IV Last administered on 07/04/17 20:22; Start 07/04/17 at 12:30; Stop 07/05/17 at 05 :51; Status DC Vancomycin HCl 1 each 1X ONCE MC Last administered on 07/05/17 05:27; Start 07/05/17 at 04:00; Stop 07/05/17 at 04:01; Status DC Morphine Sulfate 4 mg PRN Q2HR PRN IV PAIN Last administered on 07/05/17 12: 53; Start 07/04/17 at 11:30 Alprazolam (Xanax) 1 mg PRN DAILY PRN PO ANXIETY; Start 07/04/17 at 12:30 Aspirin (Evaristo Aspirin) 325 mg BID PO Last administered on 07/05/17 09:45; Start 07/04/17 at 13:00 Cyclobenzaprine HCl (Flexeril) 10 mg TID PO Last administered on 07/05/17 09: 44; Start 07/04/17 at 14:00 Fluticasone Propionate (Flonase) 2 spray DAILY NS Last administered on 09:46; Start 07/04/17 at 13:00 Acetaminophen/ Hydrocodone Bitart (Lortab 7.5/325) 1 tab PRN Q4HRS PRN PO PAIN Last administered on 07/05/17 09:45; Start 07/04/17 at 12:30 Levothyroxine Sodium (Synthroid) 125 mcg DAILY07 PO Last administered on 06:28; Start 07/04/17 at 13:00 Niacin (Slo-Niacin) 500 mg HS PO Last administered on 07/04/17 20:22; Start 07/04/17 at 21:00 Trazodone HCl (Desyrel) 50 mg PRN DAILY PRN PO MIGHA Last administered on 07/04 22:39; Start 07/04/17 at 12:30 Fluoxetine HCl (PROzac) 40 mg DAILY PO Last administered on 07/05/17 09:44; Start 07/04/17 at 13:00 Non-Formulary Medication 1 each DAILY PO ; Start 07/05/17 at 09:00; Status UNV Losartan Potassium (Cozaar) 100 mg DAILY PO Last administered on 07/05/17 09: 45; Start 07/04/17 at 13:00 Non-Formulary Medication 5 mg DAILY PO ; Start 07/05/17 at 09:00; Status UNV Famotidine (Pepcid) 20 mg BID PO Last administered on 07/05/17 09:44; Start 07/04/17 at 13:00 Magnesium Chloride (Mag Delay) 64 mg QHS PO Last administered on 07/04/17 20: 22; Start 07/04/17 at 21:00 Cetirizine HCl (ZyrTEC) 10 mg DAILY PO Last administered on 07/05/17 09:44; Start 07/04/17 at 13:00 Vancomycin HCl 1 each 1X ONCE MC ; Start 07/06/17 at 06:00; Stop 07/06/17 at 06:01 Ondansetron HCl (Zofran) 4 mg PRN Q6HRS PRN IV NAUSEA/VOMITING Last administered on 07/05/17 08:43; Start 07/05/17 at 06:30 Acetaminophen (Tylenol) 500 mg PRN Q6HRS PRN PO MILD PAIN / TEMP; Start at 12:30 Active Scripts Active Reported Hydrocodone-Apap 7.5-325 (Hydrocodone Bit/Acetaminophen) 1 Each Tablet 1-2 Tab PO PRN Q4HRS PRN LAST DOSE GIVEN: DATE:04/15/17 TIME:11:00 a.m. Aspirin 325 Mg Tablet 1 Tab PO BID LAST DOSE GIVEN: DATE:04/15/17 TIME:9:00 a.m. Omeprazole 20 Mg Capsule. 1 Cap PO DAILY LAST DOSE GIVEN: DATE:04/15/17 TIME:9:00 a.m. Fluticasone Propionate Nasal [place] (Fluticasone Propionate) 16 Gm [place].susp 2 [place] NS DAILY LAST DOSE GIVEN: DATE:04/15/17 TIME:9:00 a.m. Losartan Potassium 100 Mg Tablet 100 Mg PO HS [Xysol] 1 Tab PO HS [Slow Mag] 238 Mg PO HS Trazodone Hcl 50 Mg Tablet 50 Mg PO DAILY PRN Melatonin 5 Mg Tab.rapdis 5 Mg PO DAILY Cyclobenzaprine Hcl 10 Mg Tablet 1 Tab PO TID LAST DOSE GIVEN: DATE:04/15/17 TIME:2:00 p.m. Krill Oil 1,000 Mg Softgel (Krill/Om3/Dha/Epa/Om6/Lip/Astx) 1 Each Capsule 1 Each PO DAILY Meds not given this hospital admission. May resume home medications as approved by Physician. Niaspan (Niacin) 500 Mg Tab.er.24h 500 Mg PO HS Fish Oil ([place]-3 Fatty Acids) 500 Mg Capsule. 1,400 Mg PO Fluoxetine Hcl 20 Mg Tablet 40 Mg PO DAILY LAST DOSE GIVEN: DATE:04/15/17 TIME: 9:00 a.m. Zolpidem Tartrate 10 Mg Tablet 10 Mg PO Levothyroxine Sodium 125 Mcg Tablet 125 Mcg PO DAILY LAST DOSE GIVEN: DATE:04/15/17 TIME:7:30 a.m. Alprazolam 1 Mg Tablet 1 Mg PO DAILY PRN Meds not given this hospital admission. May resume home medications as approved by Physician. Vitals/I & O Vital Sign - Last 24 Hours 07/04/17 07/04/17 07/04/17 07/04/17 13:48 15:12 15:59 17:21 Temp 98.0 98.0 Pulse 66 Resp 18 B/P (MAP) 138/71 (93) Pulse Ox 92 O2 Delivery Room Air Room Air Room Air Room Air 07/04/17 07/04/17 07/04/17 07/04/17 17:21 17:22 18:10 19:15 Pulse 66 B/P (MAP) 138/71 O2 Delivery Room Air Room Air Room Air 07/04/17 07/04/17 07/04/17 07/04/17 19:26 20:23 22:39 23:18 Temp 99.1 99.1 Pulse 71 66 Resp 18 20 20 18 B/P (MAP) 130/66 (87) 117/66 (83) Pulse Ox 95 92 92 97 O2 Delivery Room Air Room Air Room Air Room Air 07/05/17 07/05/17 07/05/17 07/05/17 01:29 02:00 03:00 06:29 Temp 97.5 97.5 Pulse 75 Resp 20 20 20 B/P (MAP) 110/62 (78) Pulse Ox 97 97 96 96 O2 Delivery Room Air Room Air Room Air 07/05/17 07/05/17 07/05/17 07/05/17 07:15 08:43 09:45 09:45 Temp 97.8 97.8 Pulse 74 74 B/P (MAP) 119/61 (80) 119/61 Pulse Ox 97 O2 Delivery Room Air Room Air Room Air 07/05/17 07/05/17 07/05/17 07/05/17 10:53 10:55 11:01 12:00 Temp 97.7 97.7 Pulse 76 Resp 16 B/P (MAP) 152/87 (108) Pulse Ox 98 O2 Delivery Room Air Room Air Room Air Room Air 07/05/17 12:53 O2 Delivery Room Air Intake and Output 07/04/17 07/04/17 07/05/17 14:59 22:59 06:59 Intake Total 1760 ml 1270 ml Balance 1760 ml 1270 ml CASANDRA MIDDLETON MD Jul 05, 2017 13:01
[2017-07-05 15:00] VITALS: BP 99/51
--- NOTE | 2017-07-05 15:46 | PDOC ---
PROGRESS NOTES Subjective Subjective Patient had right TKA on 04/12/17 and then I&D with poly exchange on 04/26/17. Intraoperative cultures remained negative. patient states pain is better today. Objective Vital Signs Vital Signs Date Time Temp Pulse Resp B/P (MAP) Pulse Ox O2 Delivery O2 Flow Rate FiO2 07/05/17 14:58 Room Air 07/05/17 11:01 97.7 76 16 152/87 (108) 98 97.7 Physical Exam The right knee shows a well-healed, benign midline total knee incision. There is no warmth, erythema, drainage, or any evidence of infection. Mild swelling consistent with recent surgery. Calf soft and nontender with neg Santos's. Good dorsiflexion and plantarflexion at food. The knee shows range of motion from 0- 90 degrees. No evidence of infection, DVT, or neurovascular injury. Labs Laboratory Tests Test 07/04/17 02:11 07/04/17 12:00 07/05/17 04:50 White Blood Count 6.2 x10^3/uL (4.0-11.0) 4.6 x10^3/uL (4.0-11.0) Red Blood Count 4.53 x10^6/uL (3.50-5.40) 4.31 x10^6/uL (3.50-5.40) Hemoglobin 11.7 g/dL (12.0-15.5) 11.1 g/dL (12.0-15.5) Hematocrit 36.9 % (36.0-47.0) 35.8 % (36.0-47.0) Mean Corpuscular Volume 82 fL (79-100) 83 fL (79-100) Mean Corpuscular Hemoglobin 26 pg (25-35) 26 pg (25-35) Mean Corpuscular Hemoglobin Concent 32 g/dL (31-37) 31 g/dL (31-37) Red Cell Distribution Width 16.1 % (11.5-14.5) 15.8 % (11.5-14.5) Platelet Count 226 x10^3/uL (140-400) 203 x10^3/uL (140-400) Neutrophils (%) (Auto) 67 % (31-73) 66 % (31-73) Lymphocytes (%) (Auto) 22 % (24-48) 20 % (24-48) Monocytes (%) (Auto) 7 % (0-9) 7 % (0-9) Eosinophils (%) (Auto) 3 % (0-3) 5 % (0-3) Basophils (%) (Auto) 1 % (0-3) 1 % (0-3) Neutrophils # (Auto) 4.1 x10^3uL (1.8-7.7) 3.1 x10^3uL (1.8-7.7) Lymphocytes # (Auto) 1.4 x10^3/uL (1.0-4.8) 0.9 x10^3/uL (1.0-4.8) Monocytes # (Auto) 0.4 x10^3/uL (0.0-1.1) 0.3 x10^3/uL (0.0-1.1) Eosinophils # (Auto) 0.2 x10^3/uL (0.0-0.7) 0.2 x10^3/uL (0.0-0.7) Basophils # (Auto) 0.1 x10^3/uL (0.0-0.2) 0.1 x10^3/uL (0.0-0.2) Erythrocyte Sedimentation Rate 45 (0-25) Sodium Level 138 mmol/L (136-145) 139 mmol/L (136-145) Potassium Level 4.5 mmol/L (3.5-5.1) 4.1 mmol/L (3.5-5.1) Chloride Level 99 mmol/L (98-107) 102 mmol/L (98-107) Carbon Dioxide Level 28 mmol/L (21-32) 28 mmol/L (21-32) Anion Gap 11 (6-14) 9 (6-14) Blood Urea Nitrogen 9 mg/dL (7-20) 6 mg/dL (7-20) Creatinine 0.7 mg/dL (0.6-1.0) 1.0 mg/dL (0.6-1.0) Estimated GFR (Cockcroft-Gault) 85.9 56.9 Glucose Level 99 mg/dL (70-99) 100 mg/dL (70-99) Calcium Level 8.9 mg/dL (8.5-10.1) 9.3 mg/dL (8.5-10.1) C-Reactive Protein, Quantitative 13.3 mg/L (0-3.3) Urine Collection Type Unknown Urine Color Yellow Urine Clarity Clear Urine pH 6.0 Urine Specific [place] 1.015 Urine Protein Negative mg/dL (NEG-TRACE) Urine Glucose (UA) Negative mg/dL (NEG) Urine Ketones (Stick) Negative mg/dL (NEG) Urine Blood Negative (NEG) Urine Nitrite Negative (NEG) Urine Bilirubin Negative (NEG) Urine Urobilinogen Dipstick 1.0 mg/dL (0.2 mg/dL) Urine Leukocyte Esterase Trace (NEG) Urine RBC 0 /HPF (0-2) Urine WBC Occ /HPF (0-4) Urine Squamous Epithelial Cells Many /LPF Urine Bacteria 0 /HPF (0-FEW) Urine Mucus Slight /LPF BUN/Creatinine Ratio 6 (6-20) Total Bilirubin 0.7 mg/dL (0.2-1.0) Aspartate Amino Transf (AST/SGOT) 69 U/L (15-37) Alanine Aminotransferase (ALT/SGPT) 42 U/L (14-59) Alkaline Phosphatase 146 U/L (46-116) Total Protein 6.7 g/dL (6.4-8.2) Albumin 3.1 g/dL (3.4-5.0) Albumin/Globulin Ratio 0.9 (1.0-1.7) Vancomycin Level Trough 44.9 mcg/mL (10.0-20.0) Vancomycin Last Dose Date Vancomycin Last Dose Time 2029 Laboratory Tests Test 07/05/17 04:50 White Blood Count 4.6 x10^3/uL (4.0-11.0) Red Blood Count 4.31 x10^6/uL (3.50-5.40) Hemoglobin 11.1 g/dL (12.0-15.5) Hematocrit 35.8 % (36.0-47.0) Mean Corpuscular Volume 83 fL (79-100) Mean Corpuscular Hemoglobin 26 pg (25-35) Mean Corpuscular Hemoglobin Concent 31 g/dL (31-37) Red Cell Distribution Width 15.8 % (11.5-14.5) Platelet Count 203 x10^3/uL (140-400) Neutrophils (%) (Auto) 66 % (31-73) Lymphocytes (%) (Auto) 20 % (24-48) Monocytes (%) (Auto) 7 % (0-9) Eosinophils (%) (Auto) 5 % (0-3) Basophils (%) (Auto) 1 % (0-3) Neutrophils # (Auto) 3.1 x10^3uL (1.8-7.7) Lymphocytes # (Auto) 0.9 x10^3/uL (1.0-4.8) Monocytes # (Auto) 0.3 x10^3/uL (0.0-1.1) Eosinophils # (Auto) 0.2 x10^3/uL (0.0-0.7) Basophils # (Auto) 0.1 x10^3/uL (0.0-0.2) Sodium Level 139 mmol/L (136-145) Potassium Level 4.1 mmol/L (3.5-5.1) Chloride Level 102 mmol/L (98-107) Carbon Dioxide Level 28 mmol/L (21-32) Anion Gap 9 (6-14) Blood Urea Nitrogen 6 mg/dL (7-20) Creatinine 1.0 mg/dL (0.6-1.0) Estimated GFR (Cockcroft-Gault) 56.9 BUN/Creatinine Ratio 6 (6-20) Glucose Level 100 mg/dL (70-99) Calcium Level 9.3 mg/dL (8.5-10.1) Total Bilirubin 0.7 mg/dL (0.2-1.0) Aspartate Amino Transf (AST/SGOT) 69 U/L (15-37) Alanine Aminotransferase (ALT/SGPT) 42 U/L (14-59) Alkaline Phosphatase 146 U/L (46-116) Total Protein 6.7 g/dL (6.4-8.2) Albumin 3.1 g/dL (3.4-5.0) Albumin/Globulin Ratio 0.9 (1.0-1.7) Vancomycin Level Trough 44.9 mcg/mL (10.0-20.0) Vancomycin Last Dose Date Vancomycin Last Dose Time 2030 Imaging RLE venous doppler reviewed. No evidence of deep venous thrombosis. There is a fluid collection within the subcutaneous tissues anterior to the right knee measuring 5.0 x 2.6 x 2.0 cm. Assessment Assessment Right total knee arthroplasty 04/12/17 with subsequent I&D and poly exchange on 04/26/17 for drainage - no infection. Problems: Plan Plan of Care The fluid collection seen on ultrasound is likely a benign postoperative bursitis. There is no evidence of infection. Continue physical therapy for TKA. Pain control. Per RN, pt was requesting PICC line, but this is not necessary as IV abx are not necessary. Home on PO doxycycline 100mg twice daily, as before. Followup, as scheduled, on 07/25/[address] Patel. EFREN STARKEY Jul 05, 2017 15:45
[2017-07-05 19:00] VITALS: BP 126/66
[2017-07-05] MEDS: LACTOBACILLUS RHAMNOSUS GG 1 CAPSULE. PO SCH (21:25)
[2017-07-05] MEDS: AMOXICILLIN/K CLAV 875/125MG TABLET. PO SCH (21:25)
[2017-07-05] MEDS: NIACIN ER 500 MG TABLET.ER PO SCH (21:26)
[2017-07-05] MEDS: MAGNESIUM CHLORIDE ER 64 MG TABLET.ER PO SCH ×2 (21:26)
[2017-07-05 23:00] VITALS: BP 111/66
[2017-07-05] MEDS: traZODone 50 MG TABLET. PO PRN (23:34)
[2017-07-06] MEDS: MORPHINE SULFATE 4 MG/ML DISP.SYRIN. IV PRN (00:54)
[2017-07-06 03:00] VITALS: BP 141/67
[2017-07-06 05:23] LABS: BASO # 0.1 x10^3/uL (0.0-0.2); BASO % 1 % (0-3); EOS % 5 % (0-3); HEMOGLOBIN 12.1 g/dL (12.0-15.5); LYMPH # 1.3 x10^3/uL (1.0-4.8); LYMPH % 26 % (24-48); MEAN CORPUSCULAR HEMOGLOBIN 26 pg (25-35); MEAN CORPUSCULAR HGB CONC 31 g/dL (31-37); MEAN CORPUSCULAR VOLUME 82 fL (79-100); MONO % 8 % (0-9); NEUT % 60 % (31-73); PLATELET COUNT 251 x10^3/uL (140-400); RED BLOOD COUNT 4.73 x10^6/uL (3.50-5.40); RED CELL DISTRIBUTION WIDTH 16.2 % (11.5-14.5); WHITE BLOOD COUNT 5.1 x10^3/uL (4.0-11.0)
[2017-07-06 05:42] LABS: ALBUMIN 3.5 g/dL (3.4-5.0); ALBUMIN/GLOBULIN RATIO 0.9 (1.0-1.7); CREATININE 1.2 mg/dL (0.6-1.0); GFR 46.1; TOTAL BILIRUBIN 0.7 mg/dL (0.2-1.0); TOTAL PROTEIN 7.5 g/dL (6.4-8.2)
[2017-07-06] MEDS: LEVOTHYROXINE 125 MCG TABLET PO SCH (05:58)
[2017-07-06] MEDS: HYDROcodone/APAP 7.5/325MG 1 TAB TABLET PO PRN ×2 (05:58→09:29)
[2017-07-06] MEDS: ONDANSETRON PF 4 MG/2 ML VIAL. IV PRN (05:59)
[2017-07-06] MEDS ORDERED: VANCOMYCIN RANDOM LEVEL. MC ONE (06:00)
[2017-07-06 07:00] VITALS: BP 129/60
[2017-07-06] MEDS: FLUoxetine HCL 20 MG CAPSULE PO SCH (09:00)
[2017-07-06] MEDS: CETIRIZINE HCL 10 MG TABLET. PO SCH (09:29)
[2017-07-06] MEDS: CYCLOBENZAPRINE 10 MG TABLET. PO SCH ×2 (09:30→13:10)
[2017-07-06] MEDS: LOSARTAN POTASSIUM 50 MG TABLET. PO SCH (09:31)
[2017-07-06] MEDS: FAMOTIDINE 20 MG TABLET. PO SCH (09:31)
[2017-07-06] MEDS: ASPIRIN 325 MG TABLET PO SCH (09:31)
[2017-07-06] MEDS: AMOXICILLIN/K CLAV 875/125MG TABLET. PO SCH (09:31)
[2017-07-06] MEDS: LACTOBACILLUS RHAMNOSUS GG 1 CAPSULE. PO SCH (09:31)
[2017-07-06] MEDS: FLUTICASONE 50MCG/NASAL SPRAY 16GM BOTTLE. NS SCH (09:32)
[2017-07-06 11:00] VITALS: BP 120/60
--- NOTE | 2017-07-06 13:31 | PDOC3 ---
Discharge Summary Visit Information Date of Admission: Jul 04, 2017 Date of Discharge: Jul 06, 2017 Admitting Diagnosis Comment: Right knee fluid collection, knee bursitis, and postop, does not look infected Obesity ANxiety sec to above med illness HTN, dyslipidemia - chronic stable [place] liver Hypothyroidism on supplementation Anemia NOS PCM Final Diagnosis Problems Medical Problems: (1) Cellulitis of right knee Status: Acute (2) Right knee pain Status: Acute Brief Hospital Course Allergies Allergies Coded Allergies Type Severity Reaction Last Updated Verified prochlorperazine Allergy Severe 04/26/17 Yes Fenofibrate Nanocrystallized Allergy Intermediate migraines 04/26/17 Yes celecoxib Allergy Intermediate 04/26/17 Yes colesevelam Allergy Intermediate 04/26/17 Yes dimenhydrinate Allergy Intermediate 04/26/17 Yes metoclopramide Allergy Intermediate itching 04/26/17 Yes pantoprazole sodium Allergy Intermediate rash 04/26/17 Yes pregabalin Allergy Intermediate rash 04/26/17 Yes selegiline Allergy Intermediate 04/26/17 Yes topiramate Allergy Intermediate 04/26/17 Yes vilazodone hydrochloride Allergy Intermediate 04/26/17 Yes lansoprazole Allergy Mild 04/26/17 Yes zonisamide Allergy Mild 04/26/17 Yes NSAIDS (Non-Steroidal Anti-Inflamma Adverse Reaction Intermediate ULCERS 04/26 Yes Fphagkk-Cjv-Uxa Reductase Inhibitor Adverse Reaction Intermediate INCREASED LIVER ENZYMES 04/26/17 Yes Vital Signs Vital Signs Date Time Temp Pulse Resp B/P (MAP) Pulse Ox O2 Delivery O2 Flow Rate FiO2 07/06/17 11:00 98.1 72 16 120/60 (80) 92 Room Air 98.1 Lab Results Laboratory Tests Test 07/05/17 04:50 07/06/17 04:00 White Blood Count 4.6 x10^3/uL (4.0-11.0) 5.1 x10^3/uL (4.0-11.0) Red Blood Count 4.31 x10^6/uL (3.50-5.40) 4.73 x10^6/uL (3.50-5.40) Hemoglobin 11.1 g/dL (12.0-15.5) 12.1 g/dL (12.0-15.5) Hematocrit 35.8 % (36.0-47.0) 39.0 % (36.0-47.0) Mean Corpuscular Volume 83 fL (79-100) 82 fL (79-100) Mean Corpuscular Hemoglobin 26 pg (25-35) 26 pg (25-35) Mean Corpuscular Hemoglobin Concent 31 g/dL (31-37) 31 g/dL (31-37) Red Cell Distribution Width 15.8 % (11.5-14.5) 16.2 % (11.5-14.5) Platelet Count 203 x10^3/uL (140-400) 251 x10^3/uL (140-400) Neutrophils (%) (Auto) 66 % (31-73) 60 % (31-73) Lymphocytes (%) (Auto) 20 % (24-48) 26 % (24-48) Monocytes (%) (Auto) 7 % (0-9) 8 % (0-9) Eosinophils (%) (Auto) 5 % (0-3) 5 % (0-3) Basophils (%) (Auto) 1 % (0-3) 1 % (0-3) Neutrophils # (Auto) 3.1 x10^3uL (1.8-7.7) 3.0 x10^3uL (1.8-7.7) Lymphocytes # (Auto) 0.9 x10^3/uL (1.0-4.8) 1.3 x10^3/uL (1.0-4.8) Monocytes # (Auto) 0.3 x10^3/uL (0.0-1.1) 0.4 x10^3/uL (0.0-1.1) Eosinophils # (Auto) 0.2 x10^3/uL (0.0-0.7) 0.3 x10^3/uL (0.0-0.7) Basophils # (Auto) 0.1 x10^3/uL (0.0-0.2) 0.1 x10^3/uL (0.0-0.2) Sodium Level 139 mmol/L (136-145) 140 mmol/L (136-145) Potassium Level 4.1 mmol/L (3.5-5.1) 4.0 mmol/L (3.5-5.1) Chloride Level 102 mmol/L (98-107) 99 mmol/L (98-107) Carbon Dioxide Level 28 mmol/L (21-32) 29 mmol/L (21-32) Anion Gap 9 (6-14) 12 (6-14) Blood Urea Nitrogen 6 mg/dL (7-20) 6 mg/dL (7-20) Creatinine 1.0 mg/dL (0.6-1.0) 1.2 mg/dL (0.6-1.0) Estimated GFR (Cockcroft-Gault) 56.9 46.1 BUN/Creatinine Ratio 6 (6-20) 5 (6-20) Glucose Level 100 mg/dL (70-99) 103 mg/dL (70-99) Calcium Level 9.3 mg/dL (8.5-10.1) 10.0 mg/dL (8.5-10.1) Total Bilirubin 0.7 mg/dL (0.2-1.0) 0.7 mg/dL (0.2-1.0) Aspartate Amino Transf (AST/SGOT) 69 U/L (15-37) 65 U/L (15-37) Alanine Aminotransferase (ALT/SGPT) 42 U/L (14-59) 42 U/L (14-59) Alkaline Phosphatase 146 U/L (46-116) 171 U/L (46-116) Total Protein 6.7 g/dL (6.4-8.2) 7.5 g/dL (6.4-8.2) Albumin 3.1 g/dL (3.4-5.0) 3.5 g/dL (3.4-5.0) Albumin/Globulin Ratio 0.9 (1.0-1.7) 0.9 (1.0-1.7) Vancomycin Level Trough 44.9 mcg/mL (10.0-20.0) Vancomycin Last Dose Date Vancomycin Last Dose Time 2030 Laboratory Tests Test 07/06/17 04:00 White Blood Count 5.1 x10^3/uL (4.0-11.0) Red Blood Count 4.73 x10^6/uL (3.50-5.40) Hemoglobin 12.1 g/dL (12.0-15.5) Hematocrit 39.0 % (36.0-47.0) Mean Corpuscular Volume 82 fL (79-100) Mean Corpuscular Hemoglobin 26 pg (25-35) Mean Corpuscular Hemoglobin Concent 31 g/dL (31-37) Red Cell Distribution Width 16.2 % (11.5-14.5) Platelet Count 251 x10^3/uL (140-400) Neutrophils (%) (Auto) 60 % (31-73) Lymphocytes (%) (Auto) 26 % (24-48) Monocytes (%) (Auto) 8 % (0-9) Eosinophils (%) (Auto) 5 % (0-3) Basophils (%) (Auto) 1 % (0-3) Neutrophils # (Auto) 3.0 x10^3uL (1.8-7.7) Lymphocytes # (Auto) 1.3 x10^3/uL (1.0-4.8) Monocytes # (Auto) 0.4 x10^3/uL (0.0-1.1) Eosinophils # (Auto) 0.3 x10^3/uL (0.0-0.7) Basophils # (Auto) 0.1 x10^3/uL (0.0-0.2) Sodium Level 140 mmol/L (136-145) Potassium Level 4.0 mmol/L (3.5-5.1) Chloride Level 99 mmol/L (98-107) Carbon Dioxide Level 29 mmol/L (21-32) Anion Gap 12 (6-14) Blood Urea Nitrogen 6 mg/dL (7-20) Creatinine 1.2 mg/dL (0.6-1.0) Estimated GFR (Cockcroft-Gault) 46.1 BUN/Creatinine Ratio 5 (6-20) Glucose Level 103 mg/dL (70-99) Calcium Level 10.0 mg/dL (8.5-10.1) Total Bilirubin 0.7 mg/dL (0.2-1.0) Aspartate Amino Transf (AST/SGOT) 65 U/L (15-37) Alanine Aminotransferase (ALT/SGPT) 42 U/L (14-59) Alkaline Phosphatase 171 U/L (46-116) Total Protein 7.5 g/dL (6.4-8.2) Albumin 3.5 g/dL (3.4-5.0) Albumin/Globulin Ratio 0.9 (1.0-1.7) Brief Hospital Course Ms. Hernandez is a 56 old he said female who has had a long history with her right knee complicated right knee infection needing IV antibiotics and by mouth antibiotics last one for about a month. Doxycycline 100 by mouth twice a day which ended around June 23, 2017 about 2 weeks prior to admission. She was concerned about her right knee. It does not look swollen or red, no fevers at home. Sedimentation rate minimally elevated, no WBC count. Orthopedics consulted. Imaging showed some fluid collection initially there was concern could be abscess or hematoma. But none of those. It was assessed to be bursitis which is not uncommon postoperatively. Hence patient will be discharged on doxycycline 100 by mouth twice a day until 07/25/2017 for her next follow-up with Dr. Sousa. Her intra-op cultures of her knee fluid collection have always been negative as per outpatient records. Seen and examined discharge disposition to home. No physical therapy needs. Discharge medications doxycycline faxed to her pharmacy discharge time 31 minutes discussed with GURPREET lowe Discharge Information Condition at Discharge: Improved, Stable Disposition/Orders: D/C to Home Scheduled Aspirin (Aspirin), 1 TAB PO BID, (Reported) Cyclobenzaprine Hcl (Cyclobenzaprine Hcl), 1 TAB PO TID, (Reported) Fluoxetine Hcl (Fluoxetine Hcl), 40 MG PO DAILY, (Reported) Fluticasone Propionate (Fluticasone Propionate Nasal [place]), 2 SPRAY NS DAILY, ( Reported) Krill/Om3/Dha/Epa/Om6/Lip/Astx (Krill Oil 1,000 Mg Softgel), 1 EACH PO DAILY, ( Reported) Levothyroxine Sodium (Levothyroxine Sodium), 125 MCG PO DAILY, (Reported) Losartan Potassium (Losartan Potassium), 100 MG PO HS, (Reported) Melatonin (Melatonin), 5 MG PO DAILY, (Reported) Niacin (Niaspan), 500 MG PO HS, (Reported) Omeprazole (Omeprazole), 1 CAP PO DAILY, (Reported) [Slow Mag], 238 MG PO HS, (Reported) [Xysol], 1 TAB PO HS, (Reported) Scheduled PRN Alprazolam (Alprazolam), 1 MG PO DAILY PRN for ANXIETY, (Reported) Hydrocodone Bit/Acetaminophen (Hydrocodone-Apap 7.5-325 ), 1-2 TAB PO PRN Q4HRS PRN for PAIN, (Reported) Trazodone Hcl (Trazodone Hcl), 50 MG PO DAILY PRN for MIGRAINE HEADACHE, ( Reported) Miscellaneous Medications [place]-3 Fatty Acids (Fish Oil), 1,400 MG PO, (Reported) Zolpidem Tartrate (Zolpidem Tartrate), 10 MG PO, (Reported) CASANDRA MIDDLETON MD Jul 06, 2017 13:31
== END 2017-07-06 13:32 | disposition home or self-care (01) | DRG 558 ==
LOC: ER 01:10 → 4 NORTH 02:55 → ER 03:54
PROVIDERS: ADMIT Internal Medicine; ATTEND Internal Medicine
DX: M70.51 Other bursitis of knee, right knee (principal); Z68.43 Body mass index [BMI] 50.0-59.9, adult; D64.9 Anemia, unspecified; E03.9 Hypothyroidism, unspecified; E78.00 Pure hypercholesterolemia, unspecified; E78.5 Hyperlipidemia, unspecified; F41.9 Anxiety disorder, unspecified; G43.909 Migraine, unspecified, not intractable, without status migrainosus; E66.9 Obesity, unspecified; I10 Essential (primary) hypertension; Z96.651 Presence of right artificial knee joint; Z90.710 Acquired absence of both cervix and uterus; Z90.49 Acquired absence of other specified parts of digestive tract; Z86.73 Personal history of transient ischemic attack (TIA), and cerebral infarction without residual deficits; Z88.8 Allergy status to other drugs, medicaments and biological substances; Z83.3 Family history of diabetes mellitus
CPT/HCPCS: 36415; 80048; 80053; 80202; 81001; 85025; 85651; 86140; 87040; 87086; 93971; J2270; J2405; J2543; J3010; J3370; 97116

== ENCOUNTER 2017-08-16 17:08 | Emergency (ER) | payer BC ==
[2017-08-16] MEDS: methylPREDNISolone ACETATE 80 MG/ML VIAL. IM ×2 (18:18)
== END 2017-08-16 18:36 | disposition home or self-care (01) ==
LOC: ER 17:08
DX: G62.9 Polyneuropathy, unspecified (principal); E03.9 Hypothyroidism, unspecified; E78.00 Pure hypercholesterolemia, unspecified; I10 Essential (primary) hypertension; G43.909 Migraine, unspecified, not intractable, without status migrainosus; Z86.73 Personal history of transient ischemic attack (TIA), and cerebral infarction without residual deficits; Z94.9 Transplanted organ and tissue status, unspecified; Z90.710 Acquired absence of both cervix and uterus; Z95.0 Presence of cardiac pacemaker; Z88.6 Allergy status to analgesic agent; Z88.8 Allergy status to other drugs, medicaments and biological substances; Z91.041 Radiographic dye allergy status
CPT/HCPCS: 96372; 99283-25; J1040

== ENCOUNTER 2017-09-23 20:11 | Emergency (ER) | payer BC | END 2017-09-23 21:10 | disposition home or self-care (01) | LOC: ER 20:11 | DX: M25.561 Pain in right knee (principal); E03.9 Hypothyroidism, unspecified; E78.00 Pure hypercholesterolemia, unspecified; I10 Essential (primary) hypertension; G43.909 Migraine, unspecified, not intractable, without status migrainosus; Z86.73 Personal history of transient ischemic attack (TIA), and cerebral infarction without residual deficits; Z96.651 Presence of right artificial knee joint; Z95.0 Presence of cardiac pacemaker; Z90.49 Acquired absence of other specified parts of digestive tract; Z90.710 Acquired absence of both cervix and uterus; Z88.5 Allergy status to narcotic agent; Z88.8 Allergy status to other drugs, medicaments and biological substances; Z91.041 Radiographic dye allergy status; Z88.6 Allergy status to analgesic agent; X50.9XXA Other and unspecified overexertion or strenuous movements or postures, initial encounter; Y93.89 Activity, other specified; Y99.8 Other external cause status; Y92.89 Other specified places as the place of occurrence of the external cause | CPT/HCPCS: 73564; 99284 ==

== ENCOUNTER 2017-10-10 16:56 | Emergency (ER) | payer BC | END 2017-10-10 17:51 | disposition home or self-care (01) | LOC: ER 16:56 | DX: M25.561 Pain in right knee (principal); E78.00 Pure hypercholesterolemia, unspecified; I10 Essential (primary) hypertension; E03.9 Hypothyroidism, unspecified; G43.909 Migraine, unspecified, not intractable, without status migrainosus; Z86.73 Personal history of transient ischemic attack (TIA), and cerebral infarction without residual deficits; Z90.49 Acquired absence of other specified parts of digestive tract; Z90.710 Acquired absence of both cervix and uterus; Z95.0 Presence of cardiac pacemaker; Z96.653 Presence of artificial knee joint, bilateral; Z88.6 Allergy status to analgesic agent; Z88.8 Allergy status to other drugs, medicaments and biological substances; Z91.041 Radiographic dye allergy status; W17.89XA Other fall from one level to another, initial encounter; Y93.89 Activity, other specified; Y99.8 Other external cause status; Y92.098 Other place in other non-institutional residence as the place of occurrence of the external cause | CPT/HCPCS: 73564; 99284 ==

== ENCOUNTER 2017-12-19 14:49 | Emergency (ER) | payer BC ==
[2017-12-19 15:28] LABS: ADD MAN DIFF? NO
[2017-12-19 15:31] LABS: BASO # 0.1 x10^3/uL (0.0-0.2); BASO % 1 % (0-3); EOS # 0.2 x10^3/uL (0.0-0.7); EOS % 3 % (0-3); HEMATOCRIT 36.9 % (36.0-47.0); HEMOGLOBIN 12.2 g/dL (12.0-15.5); LYMPH # 1.6 x10^3/uL (1.0-4.8); LYMPH % 33 % (24-48); MEAN CORPUSCULAR HEMOGLOBIN 28 pg (25-35); MEAN CORPUSCULAR HGB CONC 33 g/dL (31-37); MEAN CORPUSCULAR VOLUME 84 fL (79-100); MONO # 0.3 x10^3/uL (0.0-1.1); MONO % 6 % (0-9); NEUT # 2.8 x10^3uL (1.8-7.7); NEUT % 56 % (31-73); PLATELET COUNT 192 x10^3/uL (140-400); RED CELL DISTRIBUTION WIDTH 13.3 % (11.5-14.5); WHITE BLOOD COUNT 4.9 x10^3/uL (4.0-11.0)
[2017-12-19 15:31] LABS: POC GLUCOSE 85 mg/dL (70-99)
[2017-12-19 15:40] LABS: ANION GAP 8 (6-14); BLOOD UREA NITROGEN 6 mg/dL (7-20); BUN/CREATININE RATIO 8 (6-20); CALCIUM 9.8 mg/dL (8.5-10.1); CARBON DIOXIDE 28 mmol/L (21-32); CHLORIDE 102 mmol/L (98-107); CREATININE 0.8 mg/dL (0.6-1.0); GFR 73.4; GLUCOSE 91 mg/dL (70-99); INR 1.1 (0.8-1.1); POTASSIUM 4.2 mmol/L (3.5-5.1); PROTHROMBIN TIME PATIENT 13.5 SEC (11.7-14.0); SODIUM 138 mmol/L (136-145)
[2017-12-19 15:42] LABS: ETHANOL < 10 mg/dL (0-10)
[2017-12-19 15:46] LABS: ALBUMIN 3.5 g/dL (3.4-5.0); ALBUMIN/GLOBULIN RATIO 1.3 (1.0-1.7); ALK PHOS 180 U/L (46-116); ALT (SGPT) 55 U/L (14-59); AST (SGOT) 41 U/L (15-37); TOTAL BILIRUBIN 0.4 mg/dL (0.2-1.0); TOTAL PROTEIN 6.3 g/dL (6.4-8.2)
[2017-12-19 15:50] LABS: TROPONINI < 0.017 ng/mL (0.000-0.055)
[2017-12-19] MEDS: KETOROLAC 15 MG/ML VIAL. IV (15:56)
[2017-12-19] MEDS: SUMAtriptan SUCC 6 MG/0.5 ML VIAL. SQ (15:57)
[2017-12-19 16:46] LABS: BILIRUBIN,URINE NEGATIVE (NEG); CLARITY,URINE CLEAR; COLOR,URINE YELLOW; GLUCOSE,URINE NEGATIVE (NEG); NITRITE,URINE NEGATIVE (NEG); PROTEIN,URINE NEGATIVE (NEG-TRACE); UROBILINOGEN,URINE 0.2 mg/dL (0.2 mg/dL)
[2017-12-19 17:01] LABS: BACTERIA,URINE 0 /HPF (0-FEW); RBC,URINE OCC /HPF (0-2); SQUAMOUS EPITHELIAL CELL,UR MOD /LPF
== END 2017-12-19 17:20 | disposition home or self-care (01) ==
LOC: ER 14:49
DX: R53.1 Weakness (principal); G43.909 Migraine, unspecified, not intractable, without status migrainosus; Z86.73 Personal history of transient ischemic attack (TIA), and cerebral infarction without residual deficits; I10 Essential (primary) hypertension; E03.9 Hypothyroidism, unspecified; Z88.8 Allergy status to other drugs, medicaments and biological substances; Z88.6 Allergy status to analgesic agent; Z91.041 Radiographic dye allergy status
CPT/HCPCS: 36415; 70450; 80053; 81001; 82962; 84484; 85025; 85610; 87086; 93005; 96372; 96374; 99285-25; G0480; J1885; J3030

== ENCOUNTER → 2018-02-06 | Outpatient (CLI) | payer BC ==
[2018-02-06 17:39] LABS: C-REACTIVE PROTEIN 7.8 mg/L (0-3.3)
[2018-02-06 18:31] LABS: SEDIMENTATION RATE 39 (0-25)
== END | disposition home or self-care (01) ==
LOC: LAB 16:53
DX: M25.562 Pain in left knee (principal); G43.909 Migraine, unspecified, not intractable, without status migrainosus; I10 Essential (primary) hypertension; E78.5 Hyperlipidemia, unspecified; E78.00 Pure hypercholesterolemia, unspecified; E03.9 Hypothyroidism, unspecified; K21.9 Gastro-esophageal reflux disease without esophagitis
CPT/HCPCS: 36415; 85651; 86140

== ENCOUNTER 2018-02-25 02:02 | Emergency (ER) | payer BC ==
[~2018-02-25] VITALS: Ht 167.6 cm; Wt 144.2 kg
[~2018-02-25 02:02] MED LIST changes: +BENZ100C PO; +GABA-585 PO; +METH4TAB2 PO; +SUMA6CAR SQ; +TRAZ-85 PO; -TRAZ50TA15 PO; +WARF-31 PO; -WARF5TAB7 PO
[2018-02-25 02:59] LABS: BILIRUBIN,URINE NEGATIVE (NEG); CLARITY,URINE CLEAR; COLOR,URINE YELLOW; NITRITE,URINE NEGATIVE (NEG); PROTEIN,URINE NEGATIVE (NEG-TRACE)
[2018-02-25 03:41] LABS: RBC,URINE 0 /HPF (0-2)
[2018-02-25 03:42] LABS: BACTERIA,URINE FEW /HPF (0-FEW); SQUAMOUS EPITHELIAL CELL,UR FEW /LPF
[2018-02-25 03:47] LABS: BASO % 1 % (0-3); EOS # 0.2 x10^3/uL (0.0-0.7); EOS % 4 % (0-3); HEMATOCRIT 37.6 % (36.0-47.0); HEMOGLOBIN 12.7 g/dL (12.0-15.5); LYMPH # 1.2 x10^3/uL (1.0-4.8); LYMPH % 23 % (24-48); MEAN CORPUSCULAR HEMOGLOBIN 28 pg (25-35); MEAN CORPUSCULAR HGB CONC 34 g/dL (31-37); MEAN CORPUSCULAR VOLUME 84 fL (79-100); MONO # 0.4 x10^3/uL (0.0-1.1); MONO % 7 % (0-9); NEUT # 3.6 x10^3uL (1.8-7.7); NEUT % 67 % (31-73); PLATELET COUNT 216 x10^3/uL (140-400); RED BLOOD COUNT 4.49 x10^6/uL (3.50-5.40); WHITE BLOOD COUNT 5.4 x10^3/uL (4.0-11.0)
[2018-02-25 04:05] LABS: CREATININE 0.8 mg/dL (0.6-1.0); GFR 73.4; POTASSIUM 3.9 mmol/L (3.5-5.1)
[2018-02-25 04:09] LABS: ALBUMIN 3.2 g/dL (3.4-5.0); ALBUMIN/GLOBULIN RATIO 0.9 (1.0-1.7); TOTAL BILIRUBIN 0.4 mg/dL (0.2-1.0); TOTAL PROTEIN 6.6 g/dL (6.4-8.2)
[2018-02-25 04:21] VITALS: BP 157/67
--- NOTE | 2018-02-25 04:28 | PHYS DOC ---
Past Medical History Past Medical History: Anemia, Anxiety, Depression, Diverticulosis, Fibromyalgia , GERD, High Cholesterol, Hypertension, Migraines, Ovarian Cyst, TIA Additional Past Medical Histor: ELMER,SHINGLES,PEPTIC ULCER, COLON POLYPS Past Surgical History: Appendectomy, Cholecystectomy, Hysterectomy, Knee Replacement, Oophorectomy, Tonsillectomy Additional Past Surgical Histo: BILAT KNEE REPLACEMENTS Alcohol Use: None Drug Use: None Adult General Chief Complaint Chief Complaint: ALTERED MENTAL STATUS HPI HPI Patient is a 57-year-old female who presents with complaint that she has been having difficulty with staying awake. She indicates that she has also been a bit confused lately, stating that she has been having to ask her what day it is. She states that she'll be sitting at the table and will just fall asleep. Patient does admit to having sleep apnea but states that she does not use her CPAP. She denies any chest pain or shortness of breath. She also denies any fever or headache. Patient states that she came in this morning because she had a very bad dream that scared her. She wonders if the bad dream was caused by taking a mixture of medications to include Prozac, Xanax and amitriptyline. Review of Systems Review of Systems Constitutional: Denies fever or chills [] Respiratory: Denies cough or shortness of breath [] Cardiovascular: Denies chest pain[] GI: Denies abdominal pain, nausea, vomiting or diarrhea [] : Denies dysuria or hematuria [] Neurologic: Denies headache, focal weakness or sensory changes [] All other systems were reviewed and found to be within normal limits, except as documented in this note. Allergies Allergies Allergies Coded Allergies Type Severity Reaction Last Updated Verified prochlorperazine Allergy Severe 04/26/17 Yes Fenofibrate Nanocrystallized Allergy Intermediate migraines 04/26/17 Yes celecoxib Allergy Intermediate 04/26/17 Yes colesevelam Allergy Intermediate 04/26/17 Yes dimenhydrinate Allergy Intermediate 04/26/17 Yes metoclopramide Allergy Intermediate itching 04/26/17 Yes pantoprazole sodium Allergy Intermediate rash 04/26/17 Yes pregabalin Allergy Intermediate rash 04/26/17 Yes selegiline Allergy Intermediate 04/26/17 Yes topiramate Allergy Intermediate 04/26/17 Yes vilazodone hydrochloride Allergy Intermediate 04/26/17 Yes lansoprazole Allergy Mild 04/26/17 Yes zonisamide Allergy Mild 04/26/17 Yes NSAIDS (Non-Steroidal Anti-Inflamma Adverse Reaction Intermediate ULCERS 04/26 Yes Ocmzmjo-Sgl-Vza Reductase Inhibitor Adverse Reaction Intermediate INCREASED LIVER ENZYMES 04/26/17 Yes Physical Exam Physical Exam Constitutional: Well developed, well nourished, no acute distress, non-toxic appearance. [] HENT: Normocephalic, atraumatic, bilateral external ears normal, oropharynx moist, no oral exudates, nose normal. [] Eyes: PERRLA, EOMI, conjunctiva normal, no discharge. [] Neck: Normal range of motion, no tenderness, supple, no stridor. [] Cardiovascular:Heart rate regular rhythm [] Lungs & Thorax: Bilateral breath sounds clear to auscultation [] Abdomen: Bowel sounds normal, soft, no tenderness. [] Skin: Warm, dry, no erythema, no rash. [] Extremities: No tenderness, no cyanosis, no clubbing. [] Neurologic: Alert and oriented X 3, normal motor function, normal sensory function, no focal deficits noted. [] Current Patient Data Vital Signs Vital Signs Date Time Temp Pulse Resp B/P (MAP) Pulse Ox O2 Delivery O2 Flow Rate FiO2 02/25/18 02:25 98.0 67 22 218/96 (136) 94 Room Air 98.0 Lab Values Laboratory Tests Test 02/25/18 02:20 02/25/18 03:00 Urine Collection Type Unknown Urine Color Yellow Urine Clarity Clear Urine pH 7.0 Urine Specific Bailey <=1.005 Urine Protein Negative mg/dL (NEG-TRACE) Urine Glucose (UA) Negative mg/dL (NEG) Urine Ketones (Stick) Negative mg/dL (NEG) Urine Blood Negative (NEG) Urine Nitrite Negative (NEG) Urine Bilirubin Negative (NEG) Urine Urobilinogen Dipstick 1.0 mg/dL (0.2 mg/dL) Urine Leukocyte Esterase Trace (NEG) Urine RBC 0 /HPF (0-2) Urine WBC 1-4 /HPF (0-4) Urine Squamous Epithelial Cells Few /LPF Urine Bacteria Few /HPF (0-FEW) White Blood Count 5.4 x10^3/uL (4.0-11.0) Red Blood Count 4.49 x10^6/uL (3.50-5.40) Hemoglobin 12.7 g/dL (12.0-15.5) Hematocrit 37.6 % (36.0-47.0) Mean Corpuscular Volume 84 fL (79-100) Mean Corpuscular Hemoglobin 28 pg (25-35) Mean Corpuscular Hemoglobin Concent 34 g/dL (31-37) Red Cell Distribution Width 14.0 % (11.5-14.5) Platelet Count 216 x10^3/uL (140-400) Neutrophils (%) (Auto) 67 % (31-73) Lymphocytes (%) (Auto) 23 % (24-48) L Monocytes (%) (Auto) 7 % (0-9) Eosinophils (%) (Auto) 4 % (0-3) H Basophils (%) (Auto) 1 % (0-3) Neutrophils # (Auto) 3.6 x10^3uL (1.8-7.7) Lymphocytes # (Auto) 1.2 x10^3/uL (1.0-4.8) Monocytes # (Auto) 0.4 x10^3/uL (0.0-1.1) Eosinophils # (Auto) 0.2 x10^3/uL (0.0-0.7) Basophils # (Auto) 0.0 x10^3/uL (0.0-0.2) Sodium Level 138 mmol/L (136-145) Potassium Level 3.9 mmol/L (3.5-5.1) Chloride Level 103 mmol/L (98-107) Carbon Dioxide Level 29 mmol/L (21-32) Anion Gap 6 (6-14) Blood Urea Nitrogen 5 mg/dL (7-20) L Creatinine 0.8 mg/dL (0.6-1.0) Estimated GFR (Cockcroft-Gault) 73.4 BUN/Creatinine Ratio 6 (6-20) Glucose Level 95 mg/dL (70-99) Calcium Level 10.0 mg/dL (8.5-10.1) Total Bilirubin 0.4 mg/dL (0.2-1.0) Aspartate Amino Transferase (AST) 66 U/L (15-37) H Alanine Aminotransferase (ALT) 66 U/L (14-59) H Alkaline Phosphatase 181 U/L (46-116) H Total Protein 6.6 g/dL (6.4-8.2) Albumin 3.2 g/dL (3.4-5.0) L Albumin/Globulin Ratio 0.9 (1.0-1.7) L Laboratory Tests 02/25/18 03:00 Laboratory Tests 02/25/18 03:00 EKG EKG [] Radiology/Procedures Radiology/Procedures [] Course & Med Decision Making Course & Med Decision Making Pertinent Labs and Imaging studies reviewed. (See chart for details) [] Dragon Disclaimer Dragon Disclaimer This electronic medical record was generated, in whole or in part, using a voice recognition dictation system. Departure Departure Impression: Primary Impression: Nightmare Additional Impression: Hypersomnolence Disposition: HOME, SELF-CARE Condition: STABLE Referrals: RUTH PEREZ (PCP) Patient Instructions: Sleep Apnea Additional Instructions: Follow-up with your primary care provider in the next few days. Problem Qualifiers GINA DAY Jr. DO Feb 25, 2018 04:28
== END 2018-02-25 04:40 | disposition home or self-care (01) ==
LOC: ER 02:02
DX: G47.10 Hypersomnia, unspecified (principal); F51.5 Nightmare disorder; F51.8 Other sleep disorders not due to a substance or known physiological condition; E78.00 Pure hypercholesterolemia, unspecified; K21.9 Gastro-esophageal reflux disease without esophagitis; G43.909 Migraine, unspecified, not intractable, without status migrainosus; I10 Essential (primary) hypertension; Z86.73 Personal history of transient ischemic attack (TIA), and cerebral infarction without residual deficits; F32.9 Major depressive disorder, single episode, unspecified; F41.9 Anxiety disorder, unspecified; G47.33 Obstructive sleep apnea (adult) (pediatric); Z88.6 Allergy status to analgesic agent; Z88.8 Allergy status to other drugs, medicaments and biological substances; Z91.041 Radiographic dye allergy status
CPT/HCPCS: 36415; 80053; 81001; 85025; 87086; 99284

== ENCOUNTER 2018-04-16 04:03 | Emergency (ER) | payer BC ==
[~2018-04-16] VITALS: Ht 170.2 cm; Wt 142.9 kg
[2018-04-16 04:03] VITALS: BP 169/80
[~2018-04-16 04:03] MED LIST changes: -LOSA100T6 PO; +LOSA100T7 PO; -LOSA50TA6 PO; +LOSA50TA7 PO
[2018-04-16] MEDS ORDERED: IPRATRPIUM/ALBUTEROL 0.5/2.5MG 3 ML NEBU. NEB ONE (04:30)
[2018-04-16] MEDS ORDERED: predniSONE 20 MG TABLET PO ONE (04:30)
[2018-04-16] MEDS ORDERED: CEPH-264 PO (05:03)
[2018-04-16] MEDS ORDERED: ALBU6.7H8 IH (05:03)
--- NOTE | 2018-04-16 05:03 | PHYS DOC ---
Past Medical History Past Medical History: Anemia, Anxiety, Depression, Diverticulosis, Fibromyalgia , GERD, High Cholesterol, Hypertension, Migraines, Ovarian Cyst, TIA Additional Past Medical Histor: ELMER,SHINGLES,PEPTIC ULCER, COLON POLYPS Past Surgical History: Appendectomy, Cholecystectomy, Hysterectomy, Knee Replacement, Oophorectomy, Tonsillectomy Additional Past Surgical Histo: BILAT KNEE REPLACEMENTS Alcohol Use: None Drug Use: None Adult General Chief Complaint Chief Complaint: COUGH HPI HPI Patient is a 57 year old COPD resents with productive cough shortness of breath for the past 7 days. Patient states symptoms worse with deep breathing and cough. No nausea vomiting. No fevers chills or sweats. No other acute symptoms or complaints. [] Review of Systems Review of Systems ROS as per HPI All other systems were reviewed and found to be within normal limits, except as documented in this note. Current Medications Current Medications Current Medications Medications (Trade) Dose Ordered Sig/Arehta Start Time Stop Time Status Last Admin Dose Admin Albuterol/ Ipratropium (Duoneb) 3 ml 1X ONCE 04/16/18 04:30 04/16/18 04:31 DC 04/16/18 04:47 3 ML Prednisone (Prednisone) 60 mg 1X ONCE 04/16/18 04:30 04/16/18 04:31 DC Allergies Allergies Allergies Coded Allergies Type Severity Reaction Last Updated Verified prochlorperazine Allergy Severe 04/26/17 Yes Fenofibrate Nanocrystallized Allergy Intermediate migraines 04/26/17 Yes celecoxib Allergy Intermediate 04/26/17 Yes colesevelam Allergy Intermediate 04/26/17 Yes dimenhydrinate Allergy Intermediate 04/26/17 Yes metoclopramide Allergy Intermediate itching 04/26/17 Yes pantoprazole sodium Allergy Intermediate rash 04/26/17 Yes pregabalin Allergy Intermediate rash 04/26/17 Yes selegiline Allergy Intermediate 04/26/17 Yes topiramate Allergy Intermediate 04/26/17 Yes vilazodone hydrochloride Allergy Intermediate 04/26/17 Yes lansoprazole Allergy Mild 04/26/17 Yes zonisamide Allergy Mild 04/26/17 Yes NSAIDS (Non-Steroidal Anti-Inflamma Adverse Reaction Intermediate ULCERS 04/26 Yes Vtqqooo-Mij-Slq Reductase Inhibitor Adverse Reaction Intermediate INCREASED LIVER ENZYMES 04/26/17 Yes Physical Exam Physical Exam Constitutional: Well developed, well nourished, no acute distress, non-toxic appearance. [] HENT: Normocephalic, atraumatic, bilateral external ears normal, oropharynx moist, no oral exudates, nose normal. [] Eyes: PERRLA, EOMI, conjunctiva normal. [] Neck: Normal range of motion, no tenderness, supple, no stridor. [] Cardiovascular:Heart rate regular rhythm. Negative Santos's sign.[] Lungs & Thorax: Respirations nonlabored, diminished coarse breath sounds bilaterally.[] Abdomen: Bowel sounds normal, soft. [] Skin: Warm, dry. [] Back: No tenderness. [] Extremities: No tenderness. [] Neurologic: Alert and oriented X 3, normal motor function, normal sensory function, no focal deficits noted. [] Psychologic: Affect normal, judgement normal, mood normal. [] Current Patient Data Vital Signs Vital Signs Date Time Temp Pulse Resp B/P (MAP) Pulse Ox O2 Delivery O2 Flow Rate FiO2 04/16/18 04:47 99 Room Air 04/16/18 04:03 98.7 74 22 169/80 (109) 98.7 EKG EKG [] Radiology/Procedures Radiology/Procedures [XR chest: No obvious discrete pulmonary infiltrate.] Impressions: 1. acute bronchitis Course & Med Decision Making Course & Med Decision Making Pertinent Labs and Imaging studies reviewed. (See chart for details) [Symptoms improved with treatment. Recommend PCP follow-up for further evaluation and treatment. Return precautions reviewed.] Dragon Disclaimer Dragon Disclaimer This electronic medical record was generated, in whole or in part, using a voice recognition dictation system. Departure Departure Impression: Primary Impression: Acute bronchitis Disposition: 01 HOME, SELF-CARE Condition: GOOD Referrals: RUTH PEREZ (PCP) Patient Instructions: Acute Bronchitis, [id number] Additional Instructions: Please take antibiotics and use inhaler as directed. Follow up with your PCP in 2-3 days. Return to the ED if new or worsening symptoms. Scripts Albuterol Sulfate (Proventil Hfa) 6.7 Gm Hfa.aer.ad 2 PUFF IH Q4-6HRS PRN for WHEEZING MDD 6 puff for 7 Days, #1 INHALER Prov: COLT HASSAN DO 04/16/18 Cephalexin (KEFLEX) 500 Mg Capsule 1 CAP PO TID, #21 CAP Prov: COLT HASSAN DO 04/16/18 COLT HASSAN DO Apr 16, 2018 05:03
[2018-04-16] MEDS ORDERED: CEPHALEXIN 250 MG CAPSULE. PO ONE (05:30)
[2018-04-16] MEDS ORDERED: ALBUTEROL SULFATE 2.5 MG/3 ML NEBU. NEB ONE (05:30)
[2018-04-16] MEDS ORDERED: PRED50TA PO (05:33)
--- NOTE | 2018-04-16 07:57 | RAD ---
EXAM: CHEST 1 VIEW History: Shortness of breath, cough COMPARISON: 08/03/2017 TECHNIQUE: Single portable radiograph of the chest FINDINGS: The cardiac silhouette is unremarkable. The lungs are clear bilaterally. The costophrenic sulci are clear and well demarcated. IMPRESSION: No radiographic evidence of an acute cardiopulmonary process. Electronically signed by: Antwan Coleman MD (04/16/2018 7:54 AM) [facility]
== END 2018-04-16 06:10 | disposition home or self-care (01) ==
LOC: ER 04:03
DX: J20.9 Acute bronchitis, unspecified (principal); F41.9 Anxiety disorder, unspecified; F32.9 Major depressive disorder, single episode, unspecified; K21.9 Gastro-esophageal reflux disease without esophagitis; E78.00 Pure hypercholesterolemia, unspecified; I10 Essential (primary) hypertension; G43.909 Migraine, unspecified, not intractable, without status migrainosus; G47.33 Obstructive sleep apnea (adult) (pediatric); Z86.73 Personal history of transient ischemic attack (TIA), and cerebral infarction without residual deficits; Z90.49 Acquired absence of other specified parts of digestive tract; Z90.710 Acquired absence of both cervix and uterus; Z90.89 Acquired absence of other organs; Z96.653 Presence of artificial knee joint, bilateral; Z88.8 Allergy status to other drugs, medicaments and biological substances
CPT/HCPCS: 71045; 94640; 99284; J7512; J7613; J7620

== ENCOUNTER 2018-09-12 05:17 | Emergency (ER) | payer BC ==
[~2018-09-12] VITALS: Ht 165.1 cm; Wt 142.9 kg
[~2018-09-12 05:17] MED LIST changes: +CEPH-264 PO; -HYDR-2762 PO; +HYDR-2765 PO; +HYDR-3164 PO; -HYDR-971 PO; +LOSA-73 PO; +LOSA100T14 PO; -LOSA100T7 PO; -LOSA50TA7 PO; +OMEP20CA10 PO; -OMEP20CA9 PO; +PRED50TA PO; +PROVENTIL HFA6.7 G2 IH; +TRAZ-118 PO; -TRAZ-85 PO
--- NOTE | 2018-09-12 05:32 | PHYS DOC ---
Past Medical History Past Medical History: Anemia, Anxiety, Depression, Diverticulosis, Fibromyalgia , GERD, High Cholesterol, Hypertension, Migraines, Ovarian Cyst, TIA Additional Past Medical Histor: ELMER,SHINGLES,PEPTIC ULCER, COLON POLYPS Past Surgical History: Appendectomy, Cholecystectomy, Hysterectomy, Knee Replacement, Oophorectomy, Tonsillectomy Additional Past Surgical Histo: BILAT KNEE REPLACEMENTS Alcohol Use: None Drug Use: None Adult General Chief Complaint Chief Complaint: SYNCOPE HPI HPI Patient is a 57 year old female was brought here by EMS for evaluation after she had a syncopal episode at home. Patient stated that she could not sleep last night because the headache that she been dealing with for about 4 days. Patient had been sitting in the recliner, she stood up to go the bathroom when she fell dizzy and passed out. Patient complaint of a headache, neck pain, back pain. Patient denies any chest pain. She denies any pelvic pain, no extremity pain. Patient has history of migraine headache, she says she called her doctor a few days ago, he called in a prescription for some imitrex but not improving. She had no history of diabetic, no history of blood clot disorder, no history of coronary artery disease. Review of Systems Review of Systems Constitutional: Denies fever or chills [] Eyes: Denies change in visual acuity, redness, or eye pain [] HENT: Denies nasal congestion or sore throat [] Respiratory: Denies cough or shortness of breath [] Cardiovascular: No additional information not addressed in HPI [] GI: Denies abdominal pain, nausea, vomiting, bloody stools or diarrhea [] : Denies dysuria or hematuria [] Musculoskeletal: Positive for back pain. NO EXTREMITIES PAIN. Integument: Denies rash or skin lesions [] Neurologic: Positive for headache and syncope. NO focal weakness or sensory changes [] Endocrine: Denies polyuria or polydipsia [] All other systems were reviewed and found to be within normal limits, except as documented in this note. Current Medications Current Medications Current Medications Medications (Trade) Dose Ordered Sig/Aretha Start Time Stop Time Status Last Admin Dose Admin Morphine Sulfate (Morphine Sulfate) 4 mg 1X ONCE 09/12/18 07:45 09/12/18 07:46 DC 09/12/18 08:12 4 MG Ondansetron HCl (Zofran) 4 mg 1X ONCE 09/12/18 07:45 09/12/18 07:46 DC 09/12/18 08:12 4 MG Sodium Chloride 1,000 ml @ 1,000 mls/hr 1X ONCE 09/12/18 07:45 09/12/18 08:44 DC 09/12/18 08:12 1,000 MLS/HR Allergies Allergies Allergies Coded Allergies Type Severity Reaction Last Updated Verified prochlorperazine Allergy Severe 04/26/17 Yes Fenofibrate Nanocrystallized Allergy Intermediate migraines 04/26/17 Yes celecoxib Allergy Intermediate 04/26/17 Yes colesevelam Allergy Intermediate 04/26/17 Yes dimenhydrinate Allergy Intermediate 04/26/17 Yes metoclopramide Allergy Intermediate itching 04/26/17 Yes pantoprazole sodium Allergy Intermediate rash 04/26/17 Yes pregabalin Allergy Intermediate rash 04/26/17 Yes selegiline Allergy Intermediate 04/26/17 Yes topiramate Allergy Intermediate 04/26/17 Yes vilazodone hydrochloride Allergy Intermediate 04/26/17 Yes lansoprazole Allergy Mild 04/26/17 Yes zonisamide Allergy Mild 04/26/17 Yes NSAIDS (Non-Steroidal Anti-Inflamma Adverse Reaction Intermediate ULCERS 04/26 Yes [id number]-Mzy Reductase Inhibitor Adverse Reaction Intermediate INCREASED LIVER ENZYMES 04/26/17 Yes Physical Exam Physical Exam Constitutional: Well developed, well nourished, no acute distress, non-toxic appearance. [] HENT: Normocephalic, atraumatic, bilateral external ears normal, oropharynx moist, no oral exudates, nose normal. [] Eyes: PERRLA, EOMI, conjunctiva normal, no discharge. [] Neck: Normal range of motion, no tenderness, supple, no stridor. [] Cardiovascular:Heart rate regular rhythm, no murmur [] Lungs & Thorax: Bilateral breath sounds clear to auscultation [] Abdomen: Bowel sounds normal, soft, no tenderness, no masses, no pulsatile masses. [] Skin: Warm, dry, no erythema, no rash. [] Back: NO MIDLINE VERTEBRAL TENDERNESS, NO CONTUSION, NO BRUISE. THERE IS PARASPINUS MUSCLE TENDERNESS TO PALPATION. Extremities: No tenderness, no cyanosis, no clubbing, ROM intact, no edema. [] Neurologic: Alert and oriented X 3, normal motor function, normal sensory function, no focal deficits noted. [] Psychologic: Affect normal, judgement normal, mood normal. [] Current Patient Data Vital Signs Vital Signs Date Time Temp Pulse Resp B/P (MAP) Pulse Ox O2 Delivery O2 Flow Rate FiO2 09/12/18 06:00 79 20 179/77 (111) 95 Room Air 09/12/18 05:18 97.4 97.4 Lab Values Laboratory Tests Test 09/12/18 05:35 09/12/18 05:55 09/12/18 05:56 White Blood Count 5.5 x10^3/uL (4.0-11.0) Red Blood Count 5.57 x10^6/uL (3.50-5.40) H Hemoglobin 14.8 g/dL (12.0-15.5) Hematocrit 46.3 % (36.0-47.0) Mean Corpuscular Volume 83 fL (79-100) Mean Corpuscular Hemoglobin 27 pg (25-35) Mean Corpuscular Hemoglobin Concent 32 g/dL (31-37) Red Cell Distribution Width 14.5 % (11.5-14.5) Platelet Count 249 x10^3/uL (140-400) Neutrophils (%) (Auto) 55 % (31-73) Lymphocytes (%) (Auto) 33 % (24-48) Monocytes (%) (Auto) 8 % (0-9) Eosinophils (%) (Auto) 3 % (0-3) Basophils (%) (Auto) 1 % (0-3) Neutrophils # (Auto) 3.0 x10^3uL (1.8-7.7) Lymphocytes # (Auto) 1.8 x10^3/uL (1.0-4.8) Monocytes # (Auto) 0.4 x10^3/uL (0.0-1.1) Eosinophils # (Auto) 0.2 x10^3/uL (0.0-0.7) Basophils # (Auto) 0.1 x10^3/uL (0.0-0.2) Creatine Kinase 20 U/L (26-192) L Creatine Kinase MB (Mass) < 0.5 ng/mL (0.0-3.6) Creatine Kinase MB Relative Index % (0-4) Troponin I Quantitative < 0.017 ng/mL (0.000-0.055) ZG-Vzb-N-Type Natriuretic Peptide 45 pg/mL (0-124) Lipase 42 U/L (73-393) L Sodium Level 143 mmol/L (136-145) Potassium Level 3.8 mmol/L (3.5-5.1) Chloride Level 103 mmol/L (98-107) Carbon Dioxide Level 30 mmol/L (21-32) Anion Gap 10 (6-14) Blood Urea Nitrogen 9 mg/dL (7-20) Creatinine 0.8 mg/dL (0.6-1.0) Estimated GFR (Cockcroft-Gault) 73.4 BUN/Creatinine Ratio 11 (6-20) Glucose Level 114 mg/dL (70-99) H Calcium Level 10.3 mg/dL (8.5-10.1) H Magnesium Level 2.0 mg/dL (1.8-2.4) Total Bilirubin 0.8 mg/dL (0.2-1.0) Aspartate Amino Transferase (AST) 100 U/L (15-37) H Alanine Aminotransferase (ALT) 97 U/L (14-59) H Alkaline Phosphatase 170 U/L (46-116) H Total Protein 7.6 g/dL (6.4-8.2) Albumin 4.0 g/dL (3.4-5.0) Albumin/Globulin Ratio 1.1 (1.0-1.7) Urine Collection Type U cath Urine Color Yellow Urine Clarity Clear Urine pH 6.5 Urine Specific [place] 1.010 Urine Protein Negative mg/dL (NEG-TRACE) Urine Glucose (UA) Negative mg/dL (NEG) Urine Ketones (Stick) Negative mg/dL (NEG) Urine Blood Negative (NEG) Urine Nitrite Negative (NEG) Urine Bilirubin Negative (NEG) Urine Urobilinogen Dipstick 0.2 mg/dL (0.2 mg/dL) Urine Leukocyte Esterase Negative (NEG) Urine RBC 0 /HPF (0-2) Urine WBC Occ /HPF (0-4) Urine Squamous Epithelial Cells Occ /LPF Urine Transitional Epithelial Cells Occ /LPF Urine Amorphous Sediment Present /HPF Urine Bacteria 0 /HPF (0-FEW) Laboratory Tests 09/12/18 05:35 Laboratory Tests 09/12/18 05:55 EKG EKG ekg was read at 533 by this physician, rate of 74 bpm, no STEMI, SINUS RHYTHM. Radiology/Procedures Radiology/Procedures [][facility] [address] [place] [address] IMAGING REPORT Signed PATIENT: LULU WEINBERG ACCOUNT: [id number] : 1960 LOCATION: ER AGE: 57 SEX: F EXAM STATUS: REG ER ORD. PHYSICIAN: MANNY SKINNER DO REASON: had a syncope, fell down, headache, neck pain, back pain. PROCEDURE: CT HEAD AND CERVICAL SPINE WO EXAM: CT HEAD WITHOUT IV CONTRAST CLINICAL HISTORY: head/neck pain after fall this morning COMPARISON: 12/19/2017 TECHNIQUE: Routine CT of the head without contrast. Soft tissues and bone windows were reviewed. PQRS compliance statement - One or more of the following individualized dose reduction techniques were utilized for this study: 1. Automated exposure control 2. Adjustment of the mA and/or kV according to patient size 3. Use of iterative reconstruction technique FINDINGS: There is no evidence of hemorrhage, mass or extra-axial fluid collection. Ly-white differentiation is maintained with no evidence of edema. There is no mass effect or shift of the intracranial structures. The ventricles, basilar cisterns and cortical sulci are normal in size and configuration for the patients stated age. The cerebellum and brainstem are unremarkable. The calvarium demonstrates no evidence of fracture or focal lesion. There is normal aeration of the visualized paranasal sinuses and mastoid air cells. The visualized portions of the orbits are normal. IMPRESSION: No evidence for acute intracranial process. EXAM: CT CERVICAL SPINE WITHOUT IV CONTRAST CLINICAL HISTORY: head/neck pain after fall this morning COMPARISON: None available. TECHNIQUE: Helical CT of the cervical spine was performed. Axial, coronal and sagittal reformatted images were also performed. PQRS compliance statement - One or more of the following individualized dose reduction techniques were utilized for this study: 1. Automated exposure control 2. Adjustment of the mA and/or kV according to patient size 3. Use of iterative reconstruction technique FINDINGS: Vertebral body heights are preserved. No evidence for acute fracture. Intervertebral disc heights are grossly preserved. Mild atlantodental degenerative changes are seen. Mild straightening of the normal cervical lordosis. No significant spondylolisthesis. Creatinine cervical junction is grossly unremarkable. IMPRESSION: 1. No evidence for acute fracture or subluxation. Electronically signed by: Hussein Casper MD (09/12/2018 6:39 AM) [facility] DICTATED and SIGNED BY: HUSSEIN CASPER MD DATE: 09/12/18 0631 [facility] [address] [place] [address] IMAGING REPORT Signed PATIENT: LULU WEINBERG ACCOUNT: [id number] : 1960 LOCATION: ER AGE: 57 SEX: F EXAM STATUS: REG ER ORD. PHYSICIAN: MANNY SKINNER DO REASON: had a syncope, fell down, headache, neck pain, back pain. PROCEDURE: CT LUMBAR SPINE WO CONTRAST EXAM: CT thoracic spine without contrast CLINICAL HISTORY: Fall, back pain COMPARISON: None available. TECHNIQUE: Helical CT of the thoracic spine was performed and axial, coronal and sagittal reformatted images were generated. PQRS compliance statement - One or more of the following individualized dose reduction techniques were utilized for this study: 1. Automated exposure control 2. Adjustment of the mA and/or kV according to patient size 3. Use of iterative reconstruction technique FINDINGS: There is normal alignment of the thoracic spine. There is preservation of height of the vertebral bodies with normal bone density. The height of the intervertebral discs is maintained. Multilevel bridging anterior endplate osteophytes, may be seen with DISH. Minimal opacities in the dependent portions of the lungs likely atelectasis. IMPRESSION: No evidence for acute fracture or subluxation of the thoracic spine. EXAM: CT lumbar spine without IV contrast CLINICAL HISTORY:Fall; back pain COMPARISON: None available. TECHNIQUE: Helical CT was performed through the lumbar spine. Axial, coronal and sagittal reformatted images were generated. PQRS compliance statement - One or more of the following individualized dose reduction techniques were utilized for this study: 1. Automated exposure control 2. Adjustment of the mA and/or kV according to patient size 3. Use of iterative reconstruction technique FINDINGS: Mild straightening of the normal lumbar lordosis. No significant spondylolisthesis. Vertebral body heights are preserved. Mild L4-5 disc height loss. There is endplate sclerosis and cystic change at L4-5, likely degenerative. Facet degenerative changes are also seen, most prominent at the left L5-S1 level. On this limited evaluation of the visceral structures the bladder is moderately distended. A few colonic diverticula are incidentally seen. IMPRESSION: 1. No evidence for acute fracture or subluxation of the lumbar spine 2. Multilevel degenerative changes are seen. 3. Endplate sclerosis and cystic change centered at right aspect of the L4-5 level is favored to be degenerative. Electronically signed by: Hussein Casper MD (09/12/2018 7:02 AM) [facility] DICTATED and SIGNED BY: HUSSEIN CASPER MD DATE: 09/12/18 0651 Course & Med Decision Making Course & Med Decision Making Pertinent Labs and Imaging studies reviewed. (See chart for details) [] Dragon Disclaimer Dragon Disclaimer This electronic medical record was generated, in whole or in part, using a voice recognition dictation system. Departure Departure Impression: Primary Impression: Syncope and collapse Additional Impression: Back pain Disposition: 01 HOME, SELF-CARE Condition: STABLE Referrals: RUTH PEREZ (PCP) FOLLOW UP WITH YOUR PCP FOR FURTHER EVALUATION THIS WEEK. Patient Instructions: Back Pain, Adult, Syncope Problem Qualifiers MANNY SKINNER DO Sep 12, 2018 05:32
[2018-09-12 05:43] LABS: BASO # 0.1 x10^3/uL (0.0-0.2); BASO % 1 % (0-3); EOS # 0.2 x10^3/uL (0.0-0.7); EOS % 3 % (0-3); HEMATOCRIT 46.3 % (36.0-47.0); HEMOGLOBIN 14.8 g/dL (12.0-15.5); LYMPH # 1.8 x10^3/uL (1.0-4.8); LYMPH % 33 % (24-48); MEAN CORPUSCULAR HEMOGLOBIN 27 pg (25-35); MEAN CORPUSCULAR HGB CONC 32 g/dL (31-37); MEAN CORPUSCULAR VOLUME 83 fL (79-100); MONO # 0.4 x10^3/uL (0.0-1.1); MONO % 8 % (0-9); NEUT % 55 % (31-73); PLATELET COUNT 249 x10^3/uL (140-400); RED BLOOD COUNT 5.57 x10^6/uL (3.50-5.40); RED CELL DISTRIBUTION WIDTH 14.5 % (11.5-14.5); WHITE BLOOD COUNT 5.5 x10^3/uL (4.0-11.0)
[2018-09-12 05:56] LABS: CALCIUM 10.3 mg/dL (8.5-10.1); CREATININE 0.8 mg/dL (0.6-1.0); GFR 73.4; POTASSIUM 3.8 mmol/L (3.5-5.1)
[2018-09-12 06:02] LABS: ALBUMIN/GLOBULIN RATIO 1.1 (1.0-1.7); TOTAL BILIRUBIN 0.8 mg/dL (0.2-1.0); TOTAL PROTEIN 7.6 g/dL (6.4-8.2)
[2018-09-12 06:11] LABS: CREATINE KINASE 20 U/L (26-192)
[2018-09-12 06:19] LABS: BILIRUBIN,URINE NEGATIVE (NEG); CLARITY,URINE CLEAR; COLOR,URINE YELLOW; NITRITE,URINE NEGATIVE (NEG); PH,URINE 6.5; PROTEIN,URINE NEGATIVE (NEG-TRACE); UROBILINOGEN,URINE 0.2 mg/dL (0.2 mg/dL)
--- NOTE | 2018-09-12 06:42 | RAD ---
EXAM: CT HEAD WITHOUT IV CONTRAST CLINICAL HISTORY: head/neck pain after fall this morning COMPARISON: 12/19/2017 TECHNIQUE: Routine CT of the head without contrast. Soft tissues and bone windows were reviewed. PQRS compliance statement - One or more of the following individualized dose reduction techniques were utilized for this study: 1. Automated exposure control 2. Adjustment of the mA and/or kV according to patient size 3. Use of iterative reconstruction technique FINDINGS: There is no evidence of hemorrhage, mass or extra-axial fluid collection. Ly-white differentiation is maintained with no evidence of edema. There is no mass effect or shift of the intracranial structures. The ventricles, basilar cisterns and cortical sulci are normal in size and configuration for the patients stated age. The cerebellum and brainstem are unremarkable. The calvarium demonstrates no evidence of fracture or focal lesion. There is normal aeration of the visualized paranasal sinuses and mastoid air cells. The visualized portions of the orbits are normal. IMPRESSION: No evidence for acute intracranial process. EXAM: CT CERVICAL SPINE WITHOUT IV CONTRAST CLINICAL HISTORY: head/neck pain after fall this morning COMPARISON: None available. TECHNIQUE: Helical CT of the cervical spine was performed. Axial, coronal and sagittal reformatted images were also performed. PQRS compliance statement - One or more of the following individualized dose reduction techniques were utilized for this study: 1. Automated exposure control 2. Adjustment of the mA and/or kV according to patient size 3. Use of iterative reconstruction technique FINDINGS: Vertebral body heights are preserved. No evidence for acute fracture. Intervertebral disc heights are grossly preserved. Mild atlantodental degenerative changes are seen. Mild straightening of the normal cervical lordosis. No significant spondylolisthesis. Creatinine cervical junction is grossly unremarkable. IMPRESSION: 1. No evidence for acute fracture or subluxation. Electronically signed by: Hussein Parsons MD (09/12/2018 6:39 AM) [facility]
--- NOTE | 2018-09-12 06:50 | EKG ---
[facility] [address] [place] [address] Test Date: 2018-09-12 Test Time: 05:32:02 Pat Name: LULU WEINBERG Department: Room: Gender: F Echo Vasc Tech: : 1960 Requested By: MANNY SKINNER Order Number: [id number] Reading MD: Rickey Terry Measurements Intervals Embudo Rate: 74 P: 96 MD: 144 QRS: 12 QRSD: 94 T: 25 QT: 402 QTc: 447 Interpretive Statements SINUS RHYTHM Electronically Signed On 09-19-2018 10:52:33 [employer] by Rickey Terry
[2018-09-12 06:52] LABS: AMORPHOUS SEDIMENT,UR PRESENT /HPF; SQUAMOUS EPITHELIAL CELL,UR OCC /LPF
[2018-09-12 06:53] LABS: BACTERIA,URINE 0 /HPF (0-FEW); RBC,URINE 0 /HPF (0-2); WBC,URINE OCC /HPF (0-4)
--- NOTE | 2018-09-12 07:05 | RAD ---
EXAM: CT thoracic spine without contrast CLINICAL HISTORY: Fall, back pain COMPARISON: None available. TECHNIQUE: Helical CT of the thoracic spine was performed and axial, coronal and sagittal reformatted images were generated. PQRS compliance statement - One or more of the following individualized dose reduction techniques were utilized for this study: 1. Automated exposure control 2. Adjustment of the mA and/or kV according to patient size 3. Use of iterative reconstruction technique FINDINGS: There is normal alignment of the thoracic spine. There is preservation of height of the vertebral bodies with normal bone density. The height of the intervertebral discs is maintained. Multilevel bridging anterior endplate osteophytes, may be seen with DISH. Minimal opacities in the dependent portions of the lungs likely atelectasis. IMPRESSION: No evidence for acute fracture or subluxation of the thoracic spine. EXAM: CT lumbar spine without IV contrast CLINICAL HISTORY:Fall; back pain COMPARISON: None available. TECHNIQUE: Helical CT was performed through the lumbar spine. Axial, coronal and sagittal reformatted images were generated. PQRS compliance statement - One or more of the following individualized dose reduction techniques were utilized for this study: 1. Automated exposure control 2. Adjustment of the mA and/or kV according to patient size 3. Use of iterative reconstruction technique FINDINGS: Mild straightening of the normal lumbar lordosis. No significant spondylolisthesis. Vertebral body heights are preserved. Mild L4-5 disc height loss. There is endplate sclerosis and cystic change at L4-5, likely degenerative. Facet degenerative changes are also seen, most prominent at the left L5-S1 level. On this limited evaluation of the visceral structures the bladder is moderately distended. A few colonic diverticula are incidentally seen. IMPRESSION: 1. No evidence for acute fracture or subluxation of the lumbar spine 2. Multilevel degenerative changes are seen. 3. Endplate sclerosis and cystic change centered at right aspect of the L4-5 level is favored to be degenerative. Electronically signed by: Hussein Parsons MD (09/12/2018 7:02 AM) [facility]
[2018-09-12] MEDS ORDERED: IV NORMAL SALINE 1000ML BAG 1,000 ML IV ONE (07:45)
[2018-09-12] MEDS ORDERED: ONDANSETRON PF 4 MG/2 ML VIAL. IV ONE (07:45)
[2018-09-12] MEDS ORDERED: MORPHINE SULFATE 4 MG/ML VIAL. IV ONE (07:45)
[2018-09-12 09:24] VITALS: BP 139/64
== END 2018-09-12 10:20 | disposition home or self-care (01) ==
LOC: ER 05:17
DX: R55 Syncope and collapse (principal); M54.5 Low back pain; F41.9 Anxiety disorder, unspecified; F32.9 Major depressive disorder, single episode, unspecified; K21.9 Gastro-esophageal reflux disease without esophagitis; E78.00 Pure hypercholesterolemia, unspecified; I10 Essential (primary) hypertension; G43.909 Migraine, unspecified, not intractable, without status migrainosus; Z86.73 Personal history of transient ischemic attack (TIA), and cerebral infarction without residual deficits; G47.33 Obstructive sleep apnea (adult) (pediatric); Z90.49 Acquired absence of other specified parts of digestive tract; Z90.710 Acquired absence of both cervix and uterus; Z90.89 Acquired absence of other organs; Z96.653 Presence of artificial knee joint, bilateral; Z88.8 Allergy status to other drugs, medicaments and biological substances; Z88.1 Allergy status to other antibiotic agents
CPT/HCPCS: 36415; 70450; 72125; 72128; 72131; 80053; 81001; 82553; 83690; 83735; 83880; 84484; 85025; 93005; 96361; 96374; 96375; 99284; J2270; J2405; J7030

== ENCOUNTER 2019-03-26 17:51 | Inpatient (IN) | payer BC ==
[~2019-03-26] VITALS: Ht 170.2 cm; Wt 153.6 kg
[2019-03-26 18:26] LABS: BASO % 1 % (0-3); EOS # 0.1 x10^3/uL (0.0-0.7); EOS % 3 % (0-3); HEMATOCRIT 39.5 % (36.0-47.0); HEMOGLOBIN 13.2 g/dL (12.0-15.5); LYMPH # 1.1 x10^3/uL (1.0-4.8); LYMPH % 22 % (24-48); MEAN CORPUSCULAR HEMOGLOBIN 28 pg (25-35); MEAN CORPUSCULAR HGB CONC 33 g/dL (31-37); MEAN CORPUSCULAR VOLUME 84 fL (79-100); MONO # 0.4 x10^3/uL (0.0-1.1); MONO % 7 % (0-9); NEUT # 3.4 x10^3/uL (1.8-7.7); NEUT % 68 % (31-73); PLATELET COUNT 171 x10^3/uL (140-400); RED CELL DISTRIBUTION WIDTH 13.2 % (11.5-14.5)
[2019-03-26 18:36] LABS: CALCIUM 10.1 mg/dL (8.5-10.1); CREATININE 0.8 mg/dL (0.6-1.0); GFR 73.2; POTASSIUM 4.2 mmol/L (3.5-5.1)
--- NOTE | 2019-03-26 18:36 | PHYS DOC ---
Past Medical History Past Medical History: Anemia, Anxiety, Depression, Diverticulosis, Fibromyalgia, GERD, High Cholesterol, Hypertension, Migraines, Ovarian Cyst, TIA Additional Past Medical Histor: ELMER,SHINGLES,PEPTIC ULCER, COLON POLYPS Past Surgical History: Appendectomy, Cholecystectomy, Hysterectomy, Knee Replacement, Oophorectomy, Tonsillectomy Additional Past Surgical Histo: BILAT KNEE REPLACEMENTS Smoking: Quit Greater Than 1 Year Alcohol Use: None Drug Use: None Adult General Chief Complaint Chief Complaint: CHEST PAIN HPI HPI Patient is a 58 year old with hx of GERD, HTN and Hypercholesterolemia who presents with chest pain. 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 The pain is on left chest, radiated to her left shoulder. It is constant, sharp and pleuritic in suzanne ure and she rates it 10/10 (10= worst). Sitting up also worsen the pain. She also endorses some SOB, denies any hemoptysis. She took some omeprazole and Aspirin 325mg which have not relieved her symptoms. Denies any N/V, F/C, no recent travel, hormone therapy or personal history of cancer. She had a normal catheterization 10 yr ago. Review of Systems Review of Systems Constitutional: Denies fever or chills Eyes: Denies redness or eye pain HENT: Denies nasal congestion or sore throat Respiratory: Denies cough. Positive shortness of breath Cardiovascular: Positive chest pain. No palpitations GI: Denies abdominal pain, nausea, or vomiting : Denies dysuria or hematuria Musculoskeletal: Denies back pain or joint pain Integument: Denies rash or skin lesions Neurologic: Denies headache, focal weakness or sensory changes Complete systems were reviewed and found to be within normal limits, except as documented in this note. Current Medications Current Medications Current Medications Medications (Trade) Dose Ordered Sig/Aretha Start Time Stop Time Status Last Admin Dose Admin Aspirin (Evaristo Aspirin) 325 mg 1X ONCE 03/26/19 19:00 03/26/19 19:01 DC 03/26/19 20:15 325 MG Dexamethasone Sodium Phosphate (Decadron) 10 mg 1X ONCE 03/26/19 20:15 03/26/19 20:16 DC 03/26/19 20:19 10 MG Fentanyl Citrate (Fentanyl 2ml Vial) 50 mcg 1X ONCE 03/26/19 19:00 03/26/19 19:01 DC 03/26/19 19:09 50 MCG Allergies Allergies Allergies Coded Allergies Type Severity Reaction Last Updated Verified prochlorperazine Allergy Severe 04/26/17 Yes Fenofibrate Nanocrystallized Allergy Intermediate migraines 04/26/17 Yes celecoxib Allergy Intermediate 04/26/17 Yes colesevelam Allergy Intermediate 04/26/17 Yes dimenhydrinate Allergy Intermediate 04/26/17 Yes metoclopramide Allergy Intermediate itching 04/26/17 Yes pantoprazole sodium Allergy Intermediate rash 04/26/17 Yes pregabalin Allergy Intermediate rash 04/26/17 Yes selegiline Allergy Intermediate 04/26/17 Yes topiramate Allergy Intermediate 04/26/17 Yes vilazodone hydrochloride Allergy Intermediate 04/26/17 Yes lansoprazole Allergy Mild 04/26/17 Yes zonisamide Allergy Mild 04/26/17 Yes NSAIDS (Non-Steroidal Anti-Inflamma Adverse Reaction Intermediate ULCERS 04/26/17 Yes Heaflmb-Xzl-Awb Reductase Inhibitor Adverse Reaction Intermediate INCREASED LIVER ENZYMES 04/26/17 Yes Physical Exam Physical Exam Constitutional: Well developed, well nourished, no acute distress, non-toxic appearance, obese HENT: Normocephalic, atraumatic, oropharynx moist Eyes: PERRL, EOMI, conjunctiva normal, no discharge Neck: Normal range of motion, no tenderness, supple Cardiovascular: Heart rate normal, regular rhythm Lungs & Thorax: Bilateral breath sounds clear to auscultation, no wheezing. Tenderness to palpation of left chest along left parasternal region. Abdomen: Soft, no tenderness Skin: Warm, dry, no erythema, no rash Back: No tenderness, no CVA tenderness Extremities: No tenderness, ROM intact, no edema Neurologic: Alert and oriented X 3, normal motor function, normal sensory function, no focal deficits noted Psychologic: Affect normal, judgement normal, mood normal Current Patient Data Vital Signs Vital Signs Date Time Temp Pulse Resp B/P (MAP) Pulse Ox O2 Delivery O2 Flow Rate FiO2 03/26/19 19:09 19 94 03/26/19 18:54 74 141/76 (97) Room Air 03/26/19 17:53 97.6 97.6 Lab Values Laboratory Tests Test 03/26/19 18:10 03/26/19 19:50 White Blood Count 5.0 x10^3/uL (4.0-11.0) Red Blood Count 4.70 x10^6/uL (3.50-5.40) Hemoglobin 13.2 g/dL (12.0-15.5) Hematocrit 39.5 % (36.0-47.0) Mean Corpuscular Volume 84 fL (79-100) Mean Corpuscular Hemoglobin 28 pg (25-35) Mean Corpuscular Hemoglobin Concent 33 g/dL (31-37) Red Cell Distribution Width 13.2 % (11.5-14.5) Platelet Count 171 x10^3/uL (140-400) Neutrophils (%) (Auto) 68 % (31-73) Lymphocytes (%) (Auto) 22 % (24-48) L Monocytes (%) (Auto) 7 % (0-9) Eosinophils (%) (Auto) 3 % (0-3) Basophils (%) (Auto) 1 % (0-3) Neutrophils # (Auto) 3.4 x10^3/uL (1.8-7.7) Lymphocytes # (Auto) 1.1 x10^3/uL (1.0-4.8) Monocytes # (Auto) 0.4 x10^3/uL (0.0-1.1) Eosinophils # (Auto) 0.1 x10^3/uL (0.0-0.7) Basophils # (Auto) 0.0 x10^3/uL (0.0-0.2) Prothrombin Time 13.0 SEC (11.7-14.0) Prothrombin Time INR 1.0 (0.8-1.1) Activated Partial Thromboplast Time 46 SEC (24-38) H D-Dimer (Kanika) 0.44 ug/mlFEU (0.00-0.50) Sodium Level 142 mmol/L (136-145) Potassium Level 4.2 mmol/L (3.5-5.1) Chloride Level 103 mmol/L (98-107) Carbon Dioxide Level 29 mmol/L (21-32) Anion Gap 10 (6-14) Blood Urea Nitrogen 8 mg/dL (7-20) Creatinine 0.8 mg/dL (0.6-1.0) Estimated GFR (Cockcroft-Gault) 73.2 BUN/Creatinine Ratio 10 (6-20) Glucose Level 110 mg/dL (70-99) H Calcium Level 10.1 mg/dL (8.5-10.1) Magnesium Level 1.5 mg/dL (1.8-2.4) L Total Bilirubin 0.4 mg/dL (0.2-1.0) Aspartate Amino Transferase (AST) 72 U/L (15-37) H Alanine Aminotransferase (ALT) 80 U/L (14-59) H Alkaline Phosphatase 168 U/L (46-116) H Creatine Kinase 45 U/L (26-192) Creatine Kinase MB (Mass) < 0.5 ng/mL (0.0-3.6) Creatine Kinase MB Relative Index % (0-4) Troponin I Quantitative < 0.017 ng/mL (0.000-0.055) KP-Qfr-G-Type Natriuretic Peptide 28 pg/mL (0-124) Total Protein 6.9 g/dL (6.4-8.2) Albumin 3.3 g/dL (3.4-5.0) L Albumin/Globulin Ratio 0.9 (1.0-1.7) L Lipase 34 U/L (73-393) L Urine Collection Type Unknown Urine Color Yellow Urine Clarity Clear Urine pH 6.5 Urine Specific [place] 1.010 Urine Protein Negative mg/dL (NEG-TRACE) Urine Glucose (UA) Negative mg/dL (NEG) Urine Ketones (Stick) Negative mg/dL (NEG) Urine Blood Negative (NEG) Urine Nitrite Negative (NEG) Urine Bilirubin Negative (NEG) Urine Urobilinogen Dipstick 1.0 mg/dL (0.2 mg/dL) Urine Leukocyte Esterase Moderate (NEG) Urine RBC 0 /HPF (0-2) Urine WBC 1-4 /HPF (0-4) Urine Squamous Epithelial Cells Few /LPF Urine Bacteria Few /HPF (0-FEW) Laboratory Tests 03/26/19 18:10 Laboratory Tests 03/26/19 18:10 EKG EKG @1757 NSR at 75bpm, NO ST elevation, QRS 82ms, QT/QTc 392/440ms Radiology/Procedures Radiology/Procedures CXR 2 view (preliminary interpretation by ED physician): NO acute process noted PROCEDURE: CHEST PA & LATERAL PA and lateral chest radiographs 03/26/2019 CLINICAL HISTORY: Shortness of breath and chest pain PA lateral digital radiographs of chest were obtained. Comparison study is dated 04/16/2018. The cardiac silhouette is mildly enlarged. The thoracic aorta is mildly tortuous. Right basilar subsegmental atelectasis is seen. No area of consolidation is noted. No pleural effusion or pneumothorax is noted. Surgical clips are seen within the right upper quadrant abdomen consistent with a cholecystectomy. Degenerative changes are seen involving the thoracic spine. IMPRESSION: No area of consolidation is seen. Electronically signed by: Jamie Brenner MD (03/26/2019 10:32 PM) [facility] Course & Med Decision Making Course & Med Decision Making Pertinent Labs and Imaging studies reviewed. (See chart for details) Patient with significant cardiac risk factors presents with report of chest pain. Chest pain appears reproducible and more muscular skeletal in nature however patient reports continued discomfort on top of what is reproducible. EKG stable. Labs obtained and posted to chart. Initial troponin within normal limits. D-dimer negative. Chest x-ray without acute process. Symptomatic treatme nt provided with interval improvement. Heart score 4. Patient offered outpatient follow-up versus observation admission. Patient elects to be admitted for further evaluation given risk factors. Patient requiring admission for further evaluation and treatment. Discussed with Dr. Luna (hospitalist) who is in agreement with admission. Discussed findings and plan with patient and family, who acknowledge understanding and agreement. Dragon Disclaimer Dragon Disclaimer This electronic medical record was generated, in whole or in part, using a voice recognition dictation system. Departure Departure Impression: Primary Impression: Atypical chest pain Disposition: 01 HOME, SELF-CARE Condition: STABLE Referrals: RUTH PEREZ (PCP) The HEART Score for CP Pts HEART Score for Chest Pain: HEART Score for Chest Pain Response (Comments) Value History Moderately Suspicious 1 ECG Normal 0 Age >45 - < 65 1 Risk Factors >3 Risk Factors or Hx CAD 2 Troponin < Normal Limit 0 Total 4 Risk Factors: Risk Factors: DM, Current or recent (<one month) smoker, HTN, HLP, family history of CAD, obesity. Risk Scores: Score 0 - 3: 2.5% MACE over next 6 weeks - Discharge Home Score 4 - 6: 20.3% MACE over next 6 weeks - Admit for Clinical Observation Score 7 - 10: 72.7% MACE over next 6 weeks - Early Invasive Strategies PERC Rule for PE PERC Rule for PE PERC Rule for PE Response (Comments) Value Age > 50: Yes 1 HR > 100: No 0 Sa02 on room air <95%: No 0 Unilateral leg swelling: No 0 Hemoptysis: No 0 Recent surgery or trauma: No 0 Prior PE or DVT: No 0 Hormone use: No 0 Total 1 CASTELLANORORO DO Mar 26, 2019 18:36
[2019-03-26 18:40] LABS: D-DIMER 0.44 ug/mlFEU (0.00-0.50)
[2019-03-26 18:44] LABS: ALBUMIN 3.3 g/dL (3.4-5.0); ALBUMIN/GLOBULIN RATIO 0.9 (1.0-1.7); MAGNESIUM 1.5 mg/dL (1.8-2.4); TOTAL BILIRUBIN 0.4 mg/dL (0.2-1.0); TOTAL PROTEIN 6.9 g/dL (6.4-8.2)
[2019-03-26 19:00] LABS: CREATINE KINASE 45 U/L (26-192)
[2019-03-26] MEDS ORDERED: fentaNYL PF VIAL 100 MCG/2 ML VIAL IV ONE (19:00)
[2019-03-26] MEDS ORDERED: ASPIRIN 325 MG TABLET PO ONE (19:00)
[2019-03-26 20:07] LABS: BILIRUBIN,URINE NEGATIVE (NEG); CLARITY,URINE CLEAR; COLOR,URINE YELLOW; NITRITE,URINE NEGATIVE (NEG); PH,URINE 6.5; PROTEIN,URINE NEGATIVE (NEG-TRACE)
[2019-03-26] MEDS ORDERED: DEXAMETHASONE SOD PHOS 20 MG/5 ML VIAL. IV ONE (20:15)
[2019-03-26 20:16] LABS: BACTERIA,URINE FEW /HPF (0-FEW); RBC,URINE 0 /HPF (0-2); SQUAMOUS EPITHELIAL CELL,UR FEW /LPF
[2019-03-26] MEDS ORDERED: MAGNESIUM SULFATE 2GM 50 ML IV ONE (21:00)
[2019-03-26] MEDS ORDERED: ONDANSETRON PF 4 MG/2 ML VIAL. IV PRN (21:00)
[2019-03-26] MEDS ORDERED: fentaNYL PF VIAL 100 MCG/2 ML VIAL IV PRN (21:00)
--- NOTE | 2019-03-26 21:26 | PDOC1 ---
History and Physical Date of Admission Date of Admission DATE: 03/26/19 TIME: 21:24 Source Source: Chart review, Patient History of Present Illness History of Present Illness Ms. Ng is a 58 year old admit with chest pain, mult allergies, pain better with IV fentanyl she has a w hx of GERD, HTN and Hypercholesterolemia pain started suddenly this AM, in bed, left chest pain to left shoulder with dyspnea. pain was 10 /10 Past Medical History Cardiovascular: HTN, Hyperlipidemia Pulmonary: Other CENTRAL NERVOUS SYSTEM: Migraine, TIA Psych: Anxiety, Depression Musculoskeletal: Osteoarthritis Rheumatologic: Fibromyalgia Endocrine: Hypothyroidism Past Surgical History Past Surgical History: Appendectomy, Cholecystectomy, , Total knee replacement, Tubal Ligation, Tonsillectomy, Hysterectomy, Other Family History Family History: Coronary Artery Disease, High Cholestrol, Hypertension, Stroke Social History Smoke: Quit ALCOHOL: none Drugs: None Current Medications Current Medications Current Medications Fentanyl Citrate (Fentanyl 2ml Vial) 50 mcg 1X ONCE IV Last administered on 03/26/19at 19:09; Start 03/26/19 at 19:00; Stop 03/26/19 at 19:01; Status DC Aspirin (Evaristo Aspirin) 325 mg 1X ONCE PO Last administered on 03/26/19at 20:15; Start 03/26/19 at 19:00; Stop 03/26/19 at 19:01; Status DC Dexamethasone Sodium Phosphate (Decadron) 10 mg 1X ONCE IV Last administered on 03/26/19at 20:19; Start 03/26/19 at 20:15; Stop 03/26/19 at 20:16; Status DC Ondansetron HCl (Zofran) 4 mg PRN Q8HRS PRN IV NAUSEA/VOMITING; Start 03/26/19 at 21:00; Stop 03/27/19 at 20:59 Fentanyl Citrate (Fentanyl 2ml Vial) 50 mcg PRN Q2HRS PRN IV PAIN; Start 03/26/19 at 21:00; Stop 03/26/19 at 21:12; Status DC Magnesium Sulfate 50 ml @ 25 mls/hr 1X ONCE IV ; Start 03/26/19 at 21:00; Stop 03/26/19 at 22:59 Active Scripts Active Prednisone 50 Mg Tablet 1 Tab PO DAILY Proventil Hfa (Albuterol Sulfate) 6.7 Gm Hfa.aer.ad 2 Puff IH Q4-6HRS PRN MDD 6 puff 7 Days Keflex (Cephalexin) 500 Mg Capsule 1 Cap PO TID Imitrex (Sumatriptan Succinate) 6 Mg/0.5 Ml Cartridge 6 Mg SQ ONCE PRN Gabapentin 100 Mg Capsule 100 Mg PO TID Reported Tessalon Perle (Benzonatate) 100 Mg Capsule 1 Cap PO TID Medrol (Methylprednisolone) 4 Mg Tab.ds.pk 4 Mg PO DAILY Hydrocodone-Apap 7.5-325 (Hydrocodone Bit/Acetaminophen) 1 Each Tablet 1-2 Tab PO PRN Q4HRS PRN LAST DOSE GIVEN: DATE:04/15/17 TIME:11:00 a.m. Aspirin 325 Mg Tablet 1 Tab PO BID LAST DOSE GIVEN: DATE:04/15/17 TIME:9:00 a.m. Omeprazole 20 Mg Capsule.dr 1 Cap PO DAILY LAST DOSE GIVEN: DATE:04/15/17 TIME:9:00 a.m. Fluticasone Propionate Nasal Minier (Fluticasone Propionate) 16 Gm Minier.susp 2 Minier NS DAILY LAST DOSE GIVEN: DATE:04/15/17 TIME:9:00 a.m. Losartan Potassium 100 Mg Tablet 100 Mg PO HS [Xysol] 1 Tab PO HS [Slow Mag] 238 Mg PO HS Trazodone Hcl 50 Mg Tablet 50 Mg PO DAILY PRN Melatonin 5 Mg Tab.rapdis 5 Mg PO DAILY Cyclobenzaprine Hcl 10 Mg Tablet 1 Tab PO TID LAST DOSE GIVEN: DATE:04/15/17 TIME:2:00 p.m. Krill Oil 1,000 Mg Softgel (Krill/Om3/Dha/Epa/Om6/Lip/Astx) 1 Each Capsule 1 Each PO DAILY Meds not given this hospital admission. May resume home medications as approved by Physician. Niaspan (Niacin) 500 Mg Tab.er.24h 500 Mg PO HS Fish Oil ([place]-3 Fatty Acids) 500 Mg Capsule. 1,400 Mg PO Fluoxetine Hcl 20 Mg Tablet 40 Mg PO DAILY LAST DOSE GIVEN: DATE:04/15/17 TIME: 9:00 a.m. Zolpidem Tartrate 10 Mg Tablet 10 Mg PO Levothyroxine Sodium 125 Mcg Tablet 125 Mcg PO DAILY LAST DOSE GIVEN: DATE:04/15/17 TIME:7:30 a.m. Alprazolam 1 Mg Tablet 1 Mg PO DAILY PRN Meds not given this hospital admission. May resume home medications as approved by Physician. Allergies Allergies: Coded Allergies: prochlorperazine (Verified Allergy, Severe, 04/26/17) SKIN CRAWLING Fenofibrate Nanocrystallized (Verified Allergy, Intermediate, migraines, 04/26/17) celecoxib (Verified Allergy, Intermediate, 04/26/17) colesevelam (Verified Allergy, Intermediate, 04/26/17) dimenhydrinate (Verified Allergy, Intermediate, 04/26/17) TOLERATES BENADRYL metoclopramide (Verified Allergy, Intermediate, itching, 04/26/17) pantoprazole sodium (Verified Allergy, Intermediate, rash, 04/26/17) pregabalin (Verified Allergy, Intermediate, rash, 04/26/17) selegiline (Verified Allergy, Intermediate, 04/26/17) INCREASE LIVER ENZYMES topiramate (Verified Allergy, Intermediate, 04/26/17) DOESN'T WORK FOR MIGRIANES vilazodone hydrochloride (Verified Allergy, Intermediate, 04/26/17) lansoprazole (Verified Allergy, Mild, 04/26/17) "DOESN'T WORK" zonisamide (Verified Allergy, Mild, 04/26/17) NSAIDS (Non-Steroidal Anti-Inflamma (Verified Adverse Reaction, Intermediate, ULCERS, 04/26/17) Jvaqvch-Azj-Wit Reductase Inhibitor (Verified Adverse Reaction, Intermediate, INCREASED LIVER ENZYMES, 04/26/17) ROS General: YES: Fatigue, Malaise Cardiovascular: yes Chest Pain; No Palpitations, No Orthopnea, No Paroxysmal Noc. Dyspnea, No Edema, No Lt Headedness, No Other Musculoskeletal: Yes Joint Pain, Yes Joint Stiffness Physical Exam General: Alert, Oriented X3, Cooperative, mild distress HEENT: Atraumatic Heart: other (tele sinus reg, ) Abdomen: Other (very obese) Rectal Exam: not examined Extremities: No edema Neuro: Normal speech Psych/Mental Status: Mental status NL, Mood NL Vitals Vitals Vital Signs Date Time Temp Pulse Resp B/P (MAP) Pulse Ox O2 Delivery O2 Flow Rate FiO2 03/26/19 19:09 19 94 03/26/19 18:54 74 141/76 (97) Room Air 03/26/19 17:53 97.6 97.6 Labs Labs Laboratory Tests Test 03/26/19 18:10 03/26/19 19:50 White Blood Count 5.0 x10^3/uL (4.0-11.0) Red Blood Count 4.70 x10^6/uL (3.50-5.40) Hemoglobin 13.2 g/dL (12.0-15.5) Hematocrit 39.5 % (36.0-47.0) Mean Corpuscular Volume 84 fL (79-100) Mean Corpuscular Hemoglobin 28 pg (25-35) Mean Corpuscular Hemoglobin Concent 33 g/dL (31-37) Red Cell Distribution Width 13.2 % (11.5-14.5) Platelet Count 171 x10^3/uL (140-400) Neutrophils (%) (Auto) 68 % (31-73) Lymphocytes (%) (Auto) 22 % (24-48) Monocytes (%) (Auto) 7 % (0-9) Eosinophils (%) (Auto) 3 % (0-3) Basophils (%) (Auto) 1 % (0-3) Neutrophils # (Auto) 3.4 x10^3/uL (1.8-7.7) Lymphocytes # (Auto) 1.1 x10^3/uL (1.0-4.8) Monocytes # (Auto) 0.4 x10^3/uL (0.0-1.1) Eosinophils # (Auto) 0.1 x10^3/uL (0.0-0.7) Basophils # (Auto) 0.0 x10^3/uL (0.0-0.2) Prothrombin Time 13.0 SEC (11.7-14.0) Prothromb Time International Ratio 1.0 (0.8-1.1) Activated Partial Thromboplast Time 46 SEC (24-38) D-Dimer (Kanika) 0.44 ug/mlFEU (0.00-0.50) Sodium Level 142 mmol/L (136-145) Potassium Level 4.2 mmol/L (3.5-5.1) Chloride Level 103 mmol/L (98-107) Carbon Dioxide Level 29 mmol/L (21-32) Anion Gap 10 (6-14) Blood Urea Nitrogen 8 mg/dL (7-20) Creatinine 0.8 mg/dL (0.6-1.0) Estimated GFR (Cockcroft-Gault) 73.2 BUN/Creatinine Ratio 10 (6-20) Glucose Level 110 mg/dL (70-99) Calcium Level 10.1 mg/dL (8.5-10.1) Magnesium Level 1.5 mg/dL (1.8-2.4) Total Bilirubin 0.4 mg/dL (0.2-1.0) Aspartate Amino Transf (AST/SGOT) 72 U/L (15-37) Alanine Aminotransferase (ALT/SGPT) 80 U/L (14-59) Alkaline Phosphatase 168 U/L (46-116) Creatine Kinase 45 U/L (26-192) Creatine Kinase MB (Mass) < 0.5 ng/mL (0.0-3.6) Creatine Kinase MB Relative Index % (0-4) Troponin I Quantitative < 0.017 ng/mL (0.000-0.055) EQ-Cvf-K-Type Natriuretic Peptide 28 pg/mL (0-124) Total Protein 6.9 g/dL (6.4-8.2) Albumin 3.3 g/dL (3.4-5.0) Albumin/Globulin Ratio 0.9 (1.0-1.7) Lipase 34 U/L (73-393) Urine Collection Type Unknown Urine Color Yellow Urine Clarity Clear Urine pH 6.5 Urine Specific [place] 1.010 Urine Protein Negative mg/dL (NEG-TRACE) Urine Glucose (UA) Negative mg/dL (NEG) Urine Ketones (Stick) Negative mg/dL (NEG) Urine Blood Negative (NEG) Urine Nitrite Negative (NEG) Urine Bilirubin Negative (NEG) Urine Urobilinogen Dipstick 1.0 mg/dL (0.2 mg/dL) Urine Leukocyte Esterase Moderate (NEG) Urine RBC 0 /HPF (0-2) Urine WBC 1-4 /HPF (0-4) Urine Squamous Epithelial Cells Few /LPF Urine Bacteria Few /HPF (0-FEW) Laboratory Tests Test 03/26/19 18:10 03/26/19 19:50 White Blood Count 5.0 x10^3/uL (4.0-11.0) Red Blood Count 4.70 x10^6/uL (3.50-5.40) Hemoglobin 13.2 g/dL (12.0-15.5) Hematocrit 39.5 % (36.0-47.0) Mean Corpuscular Volume 84 fL (79-100) Mean Corpuscular Hemoglobin 28 pg (25-35) Mean Corpuscular Hemoglobin Concent 33 g/dL (31-37) Red Cell Distribution Width 13.2 % (11.5-14.5) Platelet Count 171 x10^3/uL (140-400) Neutrophils (%) (Auto) 68 % (31-73) Lymphocytes (%) (Auto) 22 % (24-48) Monocytes (%) (Auto) 7 % (0-9) Eosinophils (%) (Auto) 3 % (0-3) Basophils (%) (Auto) 1 % (0-3) Neutrophils # (Auto) 3.4 x10^3/uL (1.8-7.7) Lymphocytes # (Auto) 1.1 x10^3/uL (1.0-4.8) Monocytes # (Auto) 0.4 x10^3/uL (0.0-1.1) Eosinophils # (Auto) 0.1 x10^3/uL (0.0-0.7) Basophils # (Auto) 0.0 x10^3/uL (0.0-0.2) Prothrombin Time 13.0 SEC (11.7-14.0) Prothromb Time International Ratio 1.0 (0.8-1.1) Activated Partial Thromboplast Time 46 SEC (24-38) D-Dimer (Kanika) 0.44 ug/mlFEU (0.00-0.50) Sodium Level 142 mmol/L (136-145) Potassium Level 4.2 mmol/L (3.5-5.1) Chloride Level 103 mmol/L (98-107) Carbon Dioxide Level 29 mmol/L (21-32) Anion Gap 10 (6-14) Blood Urea Nitrogen 8 mg/dL (7-20) Creatinine 0.8 mg/dL (0.6-1.0) Estimated GFR (Cockcroft-Gault) 73.2 BUN/Creatinine Ratio 10 (6-20) Glucose Level 110 mg/dL (70-99) Calcium Level 10.1 mg/dL (8.5-10.1) Magnesium Level 1.5 mg/dL (1.8-2.4) Total Bilirubin 0.4 mg/dL (0.2-1.0) Aspartate Amino Transf (AST/SGOT) 72 U/L (15-37) Alanine Aminotransferase (ALT/SGPT) 80 U/L (14-59) Alkaline Phosphatase 168 U/L (46-116) Creatine Kinase 45 U/L (26-192) Creatine Kinase MB (Mass) < 0.5 ng/mL (0.0-3.6) Creatine Kinase MB Relative Index % (0-4) Troponin I Quantitative < 0.017 ng/mL (0.000-0.055) NA-Ypq-G-Type Natriuretic Peptide 28 pg/mL (0-124) Total Protein 6.9 g/dL (6.4-8.2) Albumin 3.3 g/dL (3.4-5.0) Albumin/Globulin Ratio 0.9 (1.0-1.7) Lipase 34 U/L (73-393) Urine Collection Type Unknown Urine Color Yellow Urine Clarity Clear Urine pH 6.5 Urine Specific [place] 1.010 Urine Protein Negative mg/dL (NEG-TRACE) Urine Glucose (UA) Negative mg/dL (NEG) Urine Ketones (Stick) Negative mg/dL (NEG) Urine Blood Negative (NEG) Urine Nitrite Negative (NEG) Urine Bilirubin Negative (NEG) Urine Urobilinogen Dipstick 1.0 mg/dL (0.2 mg/dL) Urine Leukocyte Esterase Moderate (NEG) Urine RBC 0 /HPF (0-2) Urine WBC 1-4 /HPF (0-4) Urine Squamous Epithelial Cells Few /LPF Urine Bacteria Few /HPF (0-FEW) VTE Prophylaxis Ordered VTE Prophylaxis Devices: No VTE Pharmacological Prophylaxi: Yes Assessment/Plan Assessment/Plan acute chest pain, r.o ACS ex-smoker quit in 2008 Morbid obesity weighs 138 kilos p Right knee surgery in June 2017, mult chest pain admits that year, weakness debility > 30 min total time, she preferred to discuss current football, instead of R OS, she had fired me previously in 2017, making this H+ P uncomfortable for me, but no other physician available tonight for admit LUCIO Downs MD Mar 26, 2019 21:26
[2019-03-26] MEDS: fentaNYL PF VIAL 100 MCG/2 ML VIAL IV PRN (22:17)
--- NOTE | 2019-03-26 22:35 | RAD ---
PA and lateral chest radiographs 03/26/2019 CLINICAL HISTORY: Shortness of breath and chest pain PA lateral digital radiographs of chest were obtained. Comparison study is dated 04/16/2018. The cardiac silhouette is mildly enlarged. The thoracic aorta is mildly tortuous. Right basilar subsegmental atelectasis is seen. No area of consolidation is noted. No pleural effusion or pneumothorax is noted. Surgical clips are seen within the right upper quadrant abdomen consistent with a cholecystectomy. Degenerative changes are seen involving the thoracic spine. IMPRESSION: No area of consolidation is seen. Electronically signed by: Jamie Brenner MD (03/26/2019 10:32 PM) [facility]
[2019-03-26 23:00] VITALS: BP 166/95
[2019-03-27] VITALS (13 sets, daily range): BP systolic 132–206; BP diastolic 63–98
[2019-03-27] MEDS: fentaNYL PF VIAL 100 MCG/2 ML VIAL IV PRN ×2 (00:32→04:45)
[2019-03-27] MEDS ORDERED: HYDR-2761 PO (01:34)
[2019-03-27 05:23] LABS: CHOLESTEROL/HDL RATIO 3.9
--- NOTE | 2019-03-27 05:27 | EKG ---
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
--- NOTE | 2019-03-27 08:56 | EKG ---
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
[2019-03-27] MEDS ORDERED: LABETALOL 20 MG/4 ML DISP.SYRIN. IVP ONE (09:00)
[2019-03-27 09:37] LABS: CALCIUM 10.1 mg/dL (8.5-10.1); CREATININE 0.9 mg/dL (0.6-1.0); GFR 63.9; MAGNESIUM 1.9 mg/dL (1.8-2.4); POTASSIUM 3.9 mmol/L (3.5-5.1)
--- NOTE | 2019-03-27 09:52 | PDOC2 ---
DOLLY FAROOQ MANAGER CLINICAL RESEARCH 03/27/19 0952: CARDIAC CONSULT DATE OF CONSULT Date of Consult DATE: 03/27/19 TIME: 09:24 REASON FOR CONSULT Reason for Consult: Chest pain REFERRING PHYSICIAN Referring Physician: Margarita SOURCE Source: Chart review, Patient HISTORY OF PRESENT ILLNESS HISTORY OF PRESENT ILLNESS This is a pleasant 58 yo female admitted for complains of chest pain. Reports that this was tightness all day yesterday feeling like squeezing. This radiated to left shoulder and bouts of diaphoresis and some SOA. Denies any nausea or palpitations. Reports that she had a LHC about 4 yrs ago and was told that she has "something" in there but nothing that needs intervention. No recent stress test. Her BP was quite elevated when she came in and verbalized that she is compliant with her BP meds. No recent falls or any injury. No recent pulmonary infection or any intractable coughing. PAST MEDICAL HISTORY Cardiovascular: HTN, Hyperlipidemia Pulmonary: No pertinent hx CENTRAL NERVOUS SYSTEM: TIA GI: Diverticulosis, Hemorrhoids, Peptic Ulcer disease Heme/Onc: No pertinent hx Hepatobiliary: No pertinent hx Psych: Anxiety Musculoskeletal: Osteoarthritis Rheumatologic: Fibromyalgia Infectious disease: No pertinent hx ENT: No pertinent hx Endocrine: Hypothyroidism Dermatology: No pertinent hx PAST SURGICAL HISTORY Past Surgical History: Appendectomy, Cholecystectomy, Total knee replacement (bilateral), Tonsillectomy, Hysterectomy FAMILY HISTORY Family History: Heart Disease, Hypertension SOCIAL HISTORY Smoke: No ALCOHOL: none Drugs: None Lives: with Family CURRENT MEDICATIONS CURRENT MEDICATIONS Current Medications Medications (Trade) Dose Ordered Sig/Aretha Route PRN Reason Start Time Stop Time Status Last Admin Dose Admin Fentanyl Citrate (Fentanyl 2ml Vial) 50 mcg 1X ONCE IV 03/26/19 19:00 03/26/19 19:01 DC 03/26/19 19:09 Aspirin (Evaristo Aspirin) 325 mg 1X ONCE PO 03/26/19 19:00 03/26/19 19:01 DC 03/26/19 20:15 Dexamethasone Sodium Phosphate (Decadron) 10 mg 1X ONCE IV 03/26/19 20:15 03/26/19 20:16 DC 03/26/19 20:19 Magnesium Sulfate 50 ml @ 25 mls/hr 1X ONCE IV 03/26/19 21:00 03/26/19 22:59 DC 03/26/19 21:26 Fentanyl Citrate (Fentanyl 2ml Vial) 50 mcg PRN Q2HRS PRN IV pain 03/26/19 21:30 03/27/19 04:45 ALLERGIES ALLERGIES: Coded Allergies: prochlorperazine (Verified Allergy, Severe, 04/26/17) SKIN CRAWLING Fenofibrate Nanocrystallized (Verified Allergy, Intermediate, migraines, 04/26/17) celecoxib (Verified Allergy, Intermediate, 04/26/17) colesevelam (Verified Allergy, Intermediate, 04/26/17) dimenhydrinate (Verified Allergy, Intermediate, 04/26/17) TOLERATES BENADRYL metoclopramide (Verified Allergy, Intermediate, itching, 04/26/17) pantoprazole sodium (Verified Allergy, Intermediate, rash, 04/26/17) pregabalin (Verified Allergy, Intermediate, rash, 04/26/17) selegiline (Verified Allergy, Intermediate, 04/26/17) INCREASE LIVER ENZYMES topiramate (Verified Allergy, Intermediate, 04/26/17) DOESN'T WORK FOR MIGRIANES vilazodone hydrochloride (Verified Allergy, Intermediate, 04/26/17) lansoprazole (Verified Allergy, Mild, 04/26/17) "DOESN'T WORK" zonisamide (Verified Allergy, Mild, 04/26/17) NSAIDS (Non-Steroidal Anti-Inflamma (Verified Adverse Reaction, Intermediate, ULCERS, 04/26/17) Jnlmljv-Zov-Mmp Reductase Inhibitor (Verified Adverse Reaction, Intermedi ate, INCREASED LIVER ENZYMES, 04/26/17) ROS Review of System 14 point ROS evaluated with pertinent positives noted per HPI PHYSICAL EXAM General: Alert, Oriented X3, Cooperative, No acute distress HEENT: Atraumatic, Mucous membr. moist/pink Lungs: Clear to auscultation, Normal air movement Heart: Regular rate (SR), Normal S1, Normal S2, No murmurs Abdomen: Soft, No tenderness Extremities: No cyanosis, Other (trace edema) Skin: No breakdown, No significant lesion Neuro: Normal speech, Sensation intact Psych/Mental Status: Mental status NL, Mood NL MUSCULOSKELETAL: Osteoarthritic changes both hands VITALS/I&O VITALS/I&O: Vital Signs Date Time Temp Pulse Resp B/P (MAP) Pulse Ox O2 Delivery O2 Flow Rate FiO2 03/27/19 07:00 97.9 94 20 206/98 (134) 96 Nasal Cannula 2.0 97.9 I & O 03/26/19 03/26/19 03/27/19 15:00 23:00 07:00 Intake Total 300 ml 300 ml Output Total 900 ml Balance 300 ml -600 ml LABS Lab: Laboratory Tests Test 03/26/19 18:10 03/26/19 19:50 03/27/19 00:15 03/27/19 02:55 White Blood Count 5.0 x10^3/uL (4.0-11.0) Red Blood Count 4.70 x10^6/uL (3.50-5.40) Hemoglobin 13.2 g/dL (12.0-15.5) Hematocrit 39.5 % (36.0-47.0) Mean Corpuscular Volume 84 fL (79-100) Mean Corpuscular Hemoglobin 28 pg (25-35) Mean Corpuscular Hemoglobin Concent 33 g/dL (31-37) Red Cell Distribution Width 13.2 % (11.5-14.5) Platelet Count 171 x10^3/uL (140-400) Neutrophils (%) (Auto) 68 % (31-73) Lymphocytes (%) (Auto) 22 % (24-48) L Monocytes (%) (Auto) 7 % (0-9) Eosinophils (%) (Auto) 3 % (0-3) Basophils (%) (Auto) 1 % (0-3) Neutrophils # (Auto) 3.4 x10^3/uL (1.8-7.7) Lymphocytes # (Auto) 1.1 x10^3/uL (1.0-4.8) Monocytes # (Auto) 0.4 x10^3/uL (0.0-1.1) Eosinophils # (Auto) 0.1 x10^3/uL (0.0-0.7) Basophils # (Auto) 0.0 x10^3/uL (0.0-0.2) Prothrombin Time 13.0 SEC (11.7-14.0) Prothrombin Time INR 1.0 (0.8-1.1) Activated Partial Thromboplast Time 46 SEC (24-38) H D-Dimer (Kanika) 0.44 ug/mlFEU (0.00-0.50) Sodium Level 142 mmol/L (136-145) Potassium Level 4.2 mmol/L (3.5-5.1) Chloride Level 103 mmol/L (98-107) Carbon Dioxide Level 29 mmol/L (21-32) Anion Gap 10 (6-14) Blood Urea Nitrogen 8 mg/dL (7-20) Creatinine 0.8 mg/dL (0.6-1.0) Estimated GFR (Cockcroft-Gault) 73.2 BUN/Creatinine Ratio 10 (6-20) Glucose Level 110 mg/dL (70-99) H Calcium Level 10.1 mg/dL (8.5-10.1) Magnesium Level 1.5 mg/dL (1.8-2.4) L Total Bilirubin 0.4 mg/dL (0.2-1.0) Aspartate Amino Transferase (AST) 72 U/L (15-37) H Alanine Aminotransferase (ALT) 80 U/L (14-59) H Alkaline Phosphatase 168 U/L (46-116) H Creatine Kinase 45 U/L (26-192) Creatine Kinase MB (Mass) < 0.5 ng/mL (0.0-3.6) Creatine Kinase MB Relative Index % (0-4) Troponin I Quantitative < 0.017 ng/mL (0.000-0.055) < 0.017 ng/mL (0.000-0.055) < 0.017 ng/mL (0.000-0.055) HE-Rmk-F-Type Natriuretic Peptide 28 pg/mL (0-124) Total Protein 6.9 g/dL (6.4-8.2) Albumin 3.3 g/dL (3.4-5.0) L Albumin/Globulin Ratio 0.9 (1.0-1.7) L Lipase 34 U/L (73-393) L Urine Collection Type Unknown Urine Color Yellow Urine Clarity Clear Urine pH 6.5 Urine Specific [place] 1.010 Urine Protein Negative mg/dL (NEG-TRACE) Urine Glucose (UA) Negative mg/dL (NEG) Urine Ketones (Stick) Negative mg/dL (NEG) Urine Blood Negative (NEG) Urine Nitrite Negative (NEG) Urine Bilirubin Negative (NEG) Urine Urobilinogen Dipstick 1.0 mg/dL (0.2 mg/dL) Urine Leukocyte Esterase Moderate (NEG) Urine RBC 0 /HPF (0-2) Urine WBC 1-4 /HPF (0-4) Urine Squamous Epithelial Cells Few /LPF Urine Bacteria Few /HPF (0-FEW) Triglycerides Level 99 mg/dL (0-150) Cholesterol Level 269 mg/dL (0-200) H LDL Cholesterol, Calculated 180 mg/dL (0-100) H VLDL Cholesterol, Calculated 20 mg/dL (0-40) Non-HDL Cholesterol Calculated 200 mg/dL (0-129) H HDL Cholesterol 69 mg/dL (40-60) H Cholesterol/HDL Ratio 3.9 Thyroid Stimulating Hormone (TSH) 1.160 uIU/mL (0.358-3.74) Laboratory Tests 03/26/19 18:10 Laboratory Tests 03/26/19 18:10 ASSESSMENT/PLAN ASSESSMENT/PLAN 1. Accelerated HTN 2. Chest pain: UA features 3. HLP 4. PSVT 5. Morbid obesity: has gained about 25 pounds in 1 yr. 6. Hx of ELMER: reported recent test neg. 7. Hx of TIA and Migraine 8. Possible nonobstructive CAD Recommendations 1. Labetolol. ASA, restart home BP meds. 2. LHC today, risks and benefits discussed and agreeable to proceed. 3. TTE, TSH, A1C 4. Transaminitis with statin, Will need PCSK9i upon DC. Takes niacin at home 5. A1C FIDE FARR MD 03/27/19 4537: CARDIAC CONSULT ASSESSMENT/PLAN ASSESSMENT/PLAN Patient seen and examined. Agree with BIODIESEL PRODUCT MANAGER's assessment and plan. Chest pain with features concerning for unstable angina Myocardial infarction has been ruled out Agree with cardiac catheterization for definitive evaluation Resume home antihypertensives and titrate for better control We will consider PCSK9 inhibitors for hyperlipidemia Thank you for your consultation DOLLY FAROOQ APRN Mar 27, 2019 09:52 FIDE FARR MD Mar 27, 2019 16:57
[2019-03-27] MEDS ORDERED: ASPIRIN ENTERIC COATED 325 MG TABLET.DR. PO ONE (10:00)
[2019-03-27] MEDS ORDERED: amLODIPine BESYLATE 10 MG TABLET PO ONE (10:00)
[2019-03-27] MEDS ORDERED: LABETALOL 20 MG/4 ML DISP.SYRIN. IVP PRN (10:00)
[2019-03-27] MEDS ORDERED: IV NORMAL SALINE 1000ML BAG 1,000 ML IV ONE (10:00)
[2019-03-27] MEDS: ASPIRIN 325 MG TABLET PO SCH (10:18)
--- NOTE | 2019-03-27 11:17 | PDOC ---
[employer] PROGRESS NOTE Chief Complaint Chief Complaint Chest pain HTN Morbid obesity: has gained about 25 pounds in 1 yr. Hx of ELMER: reported recent test neg. Hx of TIA and Migraine Possible nonobstructive CAD Anemia Anxiety Diverticulosis Hyperlipidemia H/O colon polyps History of Present Illness History of Present Illness 03/27/19 Pt seen and examined at bedside with SHARA ARIAS RN Vitals/I&O Vitals/I&O: Vital Signs Date Time Temp Pulse Resp B/P (MAP) Pulse Ox O2 Delivery O2 Flow Rate FiO2 03/27/19 10:22 101 190/85 03/27/19 07:00 97.9 20 96 Nasal Cannula 2.0 97.9 I & O 03/26/19 03/26/19 03/27/19 15:00 23:00 07:00 Intake Total 300 ml 300 ml Output Total 900 ml Balance 300 ml -600 ml Physical Exam General: Alert, Oriented X3, Cooperative, mild distress Heart: Regular rate, No murmurs Lungs: Clear, Other Abdomen: Normal bowel sounds, No tenderness, Other (very obese) Extremities: No clubbing, No cyanosis, No edema Skin: No rashes, No breakdown, No significant lesion Labs Labs: Laboratory Tests Test 03/26/19 18:10 03/26/19 19:50 03/27/19 00:15 03/27/19 02:55 White Blood Count 5.0 x10^3/uL (4.0-11.0) Red Blood Count 4.70 x10^6/uL (3.50-5.40) Hemoglobin 13.2 g/dL (12.0-15.5) Hematocrit 39.5 % (36.0-47.0) Mean Corpuscular Volume 84 fL (79-100) Mean Corpuscular Hemoglobin 28 pg (25-35) Mean Corpuscular Hemoglobin Concent 33 g/dL (31-37) Red Cell Distribution Width 13.2 % (11.5-14.5) Platelet Count 171 x10^3/uL (140-400) Neutrophils (%) (Auto) 68 % (31-73) Lymphocytes (%) (Auto) 22 % (24-48) Monocytes (%) (Auto) 7 % (0-9) Eosinophils (%) (Auto) 3 % (0-3) Basophils (%) (Auto) 1 % (0-3) Neutrophils # (Auto) 3.4 x10^3/uL (1.8-7.7) Lymphocytes # (Auto) 1.1 x10^3/uL (1.0-4.8) Monocytes # (Auto) 0.4 x10^3/uL (0.0-1.1) Eosinophils # (Auto) 0.1 x10^3/uL (0.0-0.7) Basophils # (Auto) 0.0 x10^3/uL (0.0-0.2) Prothrombin Time 13.0 SEC (11.7-14.0) Prothromb Time International Ratio 1.0 (0.8-1.1) Activated Partial Thromboplast Time 46 SEC (24-38) D-Dimer (Kanika) 0.44 ug/mlFEU (0.00-0.50) Sodium Level 142 mmol/L (136-145) 141 mmol/L (136-145) Potassium Level 4.2 mmol/L (3.5-5.1) 3.9 mmol/L (3.5-5.1) Chloride Level 103 mmol/L (98-107) 102 mmol/L (98-107) Carbon Dioxide Level 29 mmol/L (21-32) 26 mmol/L (21-32) Anion Gap 10 (6-14) 13 (6-14) Blood Urea Nitrogen 8 mg/dL (7-20) 10 mg/dL (7-20) Creatinine 0.8 mg/dL (0.6-1.0) 0.9 mg/dL (0.6-1.0) Estimated GFR (Cockcroft-Gault) 73.2 63.9 BUN/Creatinine Ratio 10 (6-20) Glucose Level 110 mg/dL (70-99) 151 mg/dL (70-99) Calcium Level 10.1 mg/dL (8.5-10.1) 10.1 mg/dL (8.5-10.1) Magnesium Level 1.5 mg/dL (1.8-2.4) 1.9 mg/dL (1.8-2.4) Total Bilirubin 0.4 mg/dL (0.2-1.0) Aspartate Amino Transf (AST/SGOT) 72 U/L (15-37) Alanine Aminotransferase (ALT/SGPT) 80 U/L (14-59) Alkaline Phosphatase 168 U/L (46-116) Creatine Kinase 45 U/L (26-192) Creatine Kinase MB (Mass) < 0.5 ng/mL (0.0-3.6) Creatine Kinase MB Relative Index % (0-4) Troponin I Quantitative < 0.017 ng/mL (0.000-0.055) < 0.017 ng/mL (0.000-0.055) < 0.017 ng/mL (0.000-0.055) QW-Ixb-Z-Type Natriuretic Peptide 28 pg/mL (0-124) Total Protein 6.9 g/dL (6.4-8.2) Albumin 3.3 g/dL (3.4-5.0) Albumin/Globulin Ratio 0.9 (1.0-1.7) Lipase 34 U/L (73-393) Urine Collection Type Unknown Urine Color Yellow Urine Clarity Clear Urine pH 6.5 Urine Specific [place] 1.010 Urine Protein Negative mg/dL (NEG-TRACE) Urine Glucose (UA) Negative mg/dL (NEG) Urine Ketones (Stick) Negative mg/dL (NEG) Urine Blood Negative (NEG) Urine Nitrite Negative (NEG) Urine Bilirubin Negative (NEG) Urine Urobilinogen Dipstick 1.0 mg/dL (0.2 mg/dL) Urine Leukocyte Esterase Moderate (NEG) Urine RBC 0 /HPF (0-2) Urine WBC 1-4 /HPF (0-4) Urine Squamous Epithelial Cells Few /LPF Urine Bacteria Few /HPF (0-FEW) Triglycerides Level 99 mg/dL (0-150) Cholesterol Level 269 mg/dL (0-200) LDL Cholesterol, Calculated 180 mg/dL (0-100) VLDL Cholesterol, Calculated 20 mg/dL (0-40) Non-HDL Cholesterol Calculated 200 mg/dL (0-129) HDL Cholesterol 69 mg/dL (40-60) Cholesterol/HDL Ratio 3.9 Thyroid Stimulating Hormone (TSH) 1.160 uIU/mL (0.358-3.74) Review of Systems Review of Systems: Denies TEJADA Denies vision change Assessment and Plan Assessmemt and Plan Problems Medical Problems: (1) Atypical chest pain Status: Acute Assessment Chest pain HTN Morbid obesity: has gained about 25 pounds in 1 yr. Hx of ELMER: reported recent test neg. Hx of TIA and Migraine Possible nonobstructive CAD Anemia Anxiety Diverticulosis Hyperlipidemia H/O colon polyps Plan Cardiac monitoring Serial enzymes EKG Daily ASA Home meds DVT prophylaxis PT/OT Full code Appreciate subspecialty input Comment Review of Relevant I have reviewed the following items radha (where applicable) has been applied. Medications: Current Medications Medications (Trade) Dose Ordered Sig/Aretha Route PRN Reason Start Time Stop Time Status Last Admin Dose Admin Fentanyl Citrate (Fentanyl 2ml Vial) 50 mcg 1X ONCE IV 03/26/19 19:00 03/26/19 19:01 DC 03/26/19 19:09 Aspirin (Evaristo Aspirin) 325 mg 1X ONCE PO 03/26/19 19:00 03/26/19 19:01 DC 03/26/19 20:15 Dexamethasone Sodium Phosphate (Decadron) 10 mg 1X ONCE IV 03/26/19 20:15 03/26/19 20:16 DC 03/26/19 20:19 Magnesium Sulfate 50 ml @ 25 mls/hr 1X ONCE IV 03/26/19 21:00 03/26/19 22:59 DC 03/26/19 21:26 Fentanyl Citrate (Fentanyl 2ml Vial) 50 mcg PRN Q2HRS PRN IV pain 03/26/19 21:30 03/27/19 04:45 Labetalol HCl (Normodyne Iv Push) 20 mg 1X ONCE IVP 03/27/19 09:00 03/27/19 09:01 DC 03/27/19 09:33 Amlodipine Besylate (Norvasc) 10 mg 1X ONCE PO 03/27/19 10:00 03/27/19 10:01 DC 03/27/19 10:22 Aspirin (Ecotrin) 325 mg 1X ONCE PO 03/27/19 10:00 03/27/19 10:01 DC 03/27/19 10:22 Sodium Chloride 1,000 ml @ 75 mls/hr 1X ONCE IV 03/27/19 10:00 03/27/19 23:19 03/27/19 10:30 SOL BARRETT III DO Mar 27, 2019 11:17
[2019-03-27] MEDS ORDERED: LIDOCAINE 1% PF 2 ML VIAL. ONE (12:33)
[2019-03-27] MEDS ORDERED: ALPRAZolam 1 MG TABLET PO PRN (13:00)
[2019-03-27] MEDS ORDERED: fentaNYL PF VIAL 100 MCG/2 ML VIAL ONE ×2 (13:03→13:18)
[2019-03-27] MEDS ORDERED: MIDAZOLAM HCL/PF 2 MG/2 ML VIAL. ONE ×2 (13:03→13:18)
[2019-03-27] MEDS ORDERED: HEPARIN for IV BOLUS 10,000 UNIT/10 ML VIAL. ONE (13:04)
[2019-03-27] MEDS ORDERED: VERAPAMIL 5 MG/2 ML VIAL. ONE (13:04)
[2019-03-27] MEDS ORDERED: NITROGLYCERIN 200 MCG/2 ML SYRINGE FOR CATH/VASC LAB. ONE (13:04)
[2019-03-27] MEDS ORDERED: VERAPAMIL 5 MG/2 ML VIAL. IART ONE (13:30)
[2019-03-27] MEDS ORDERED: NITROGLYCERIN 200 MCG/2 ML SYRINGE FOR CATH/VASC LAB. IART ONE (13:30)
[2019-03-27] MEDS ORDERED: fentaNYL PF VIAL 100 MCG/2 ML VIAL IV ONE (13:30)
[2019-03-27] MEDS ORDERED: LIDOCAINE 1% PF 5 ML VIAL. INJ ONE (13:30)
[2019-03-27] MEDS ORDERED: MIDAZOLAM HCL/PF 2 MG/2 ML VIAL. IV ONE (13:30)
[2019-03-27] MEDS ORDERED: HEPARIN for IV BOLUS 10,000 UNIT/10 ML VIAL. IART ONE (13:30)
[2019-03-27] MEDS ORDERED: IODIXANOL 320 MG/ML 100 ML VIAL. IART ONE (13:30)
--- NOTE | 2019-03-27 13:34 | NUR ---
SS following for discharge planning. SS reviewed pt chart. Pt is from home with spouse and is currently requiring oxygen. No discharge needs noted at this time. SS will continue to follow for discharge planning.
[2019-03-27] MEDS ORDERED: CONTRAST GIVEN. MC PRN (13:45)
[2019-03-27] MEDS ORDERED: IV 1/2 NORMAL SALINE 1,000 ML IV SCH (15:10)
--- NOTE | 2019-03-27 15:10 | PDOC ---
MODERATE SEDATION ASSESSMENT RISKS/ALTERNATIVES Risks/Alternatives Risks and alternatives of this type of sedation and procedure discussed with: RISK/ALTERNATIVES: Patient H & P ON CHART H & P H & P on chart and reviewed for co-morbid conditions and appropriate labs. H&P ON CHART: Yes STATUS PREG STATUS ASSESSED: N/A MEDS/ALLERGIES REVIEWED Meds/Allergies Reviewed Medications and Allergies including time and route of recently administered narcotics and sedatives. MEDS/ALLERGIES REVIEWED: Yes ASA RATING ASA RATING: II AIRWAY ASSESSMENT Airway Assessment Airway patency, oral function limitations, presence of caps, crowns, dentures, partials, and ability to extend neck assessed. AIRWAY ASSESSMENT: Yes MALLAMPATI SCORE MALLAMPATI SCORE: II PRE-SEDATION ASSESSMENT PRE-SEDATION ASSESSMENT: Yes FIDE FARR MD Mar 27, 2019 15:10
[2019-03-27] MEDS ORDERED: NITROGLYCERIN SUBLINGUAL 0.4 MG BOTTLE OF 25. SL PRN (15:15)
[2019-03-27] MEDS ORDERED: 0.9 % SODIUM CHLORIDE 10 ML DISP.SYRIN. IV PRN (15:15)
--- NOTE | 2019-03-27 15:17 | CARD ---
MR#: [id number] Date of Study: 03/27/2019 Ordering Physician: DOLLY FAROOQ, Referring Physician: DOLLY FAROOQ Tech: Camila Rogers APPROVED REPORT Technologist: Camila Rogers Nurse: Yarely Colin Procedure(s) performed: Left heart catheterization, selective coronary angiography via right transrad ial approach fl time: 4.1 mins dose: 58 gy/cm2 contrast: 61 ml moderate sedation: 22 mins INDICATION The indication(s) include : unstable angina . CSHA Clinical Frailty Scale [facility] Clinical Frailty Scale: Mildly Frail Heart Failure Heart Failure: No PROCEDURE NARRATIVE After explaining the risks, benefits and alternative options, informed consent was obtained from cuco ent. Patient was brought to the cardiac Model And Mold Maker Plaster and right wrist was prepped and draped in the usual fashion after confirming a positive modified Marcus's test. Arterial access was obtained in the righ t radial artery and a 6 Armenian sheath was inserted. 6 Armenian Norris catheter was used to perform nicolette ective angiography of the left and right coronary arteries. 6 Armenian pigtail catheter was used to ob tain LVEDP and transaortic gradients. Patient tolerated the procedure well. Hemostasis was achieved using TR band. There were no immediate complications. The following findings were noted. FINDINGS 1. Hemodynamics: Left ventricular end-diastolic pressure of 15 mmHg. No pullback gradient across th e aortic valve. 2. Coronary angiography: a. The left main coronary artery arose from the left sinus of Valsalva, gave rise to the left anteri or descending and left circumflex arteries and did not show any significant stenosis. b. The left anterior descending artery did not show any significant stenosis. c. The left circumflex artery did not show any significant stenosis. d. The right coronary artery was a large and dominant vessel arising from the right sinus of Valsalv a that did not show any significant stenosis. Conclusion No significant coronary artery disease. Signed by : Rickey Terry, Electronically Approved : 03/27/2019 15:17:11
[2019-03-27] MEDS: HYDROcodone/APAP 5/325MG 1 TAB TABLET PO PRN ×2 (16:30→21:32)
--- NOTE | 2019-03-27 17:05 | CARD ---
MR#: [id number] Date of Study: 03/27/2019 Ordering Physician: DOLLY FAROOQ, Referring Physician: DOLLY FAROOQ, Tech: Desi Mann APPROVED REPORT EXAM: Two-dimensional and M-mode echocardiogram with Doppler and color Doppler. Other Information Quality : FairHR: 105bpm Technically limited study due to body habitus and rapid heart rate. INDICATION Dyspnea Chest Pain RISK FACTORS Hypertension Hyperlipidemia 2D DIMENSIONS RVDd2.7 (2.9-3.5cm)Left Atrium(2D)3.1 (1.6-4.0cm) IVSd1.4 (0.7-1.1cm)Aortic Root(2D)2.9 (2.0-3.7cm) LVDd5.0 (3.9-5.9cm)LVOT Diameter2.0 (1.8-2.4cm) PWd1.1 (0.7-1.1cm)LVDs2.8 (2.5-4.0cm) FS (%) 43.1 %SV86.1 ml LVEF(%)74.0 (>50%) Aortic Valve AoV Peak Kirt.165.5cm/sAoV VTI32.6cm AO Peak GR.11.0mmHgLVOT VTI 21.13cm AO Mean GR.7mmHg Mitral Valve MV E Sutdolil52.0cm/sMV A Cjrbogwm017.2cm/s E/A Ratio0.7 TDI Lateral E' P. V12.49cm/sMedial E' P. V10.49cm/s E/Lateral E'6.6E/Medial E'7.8 Tricuspid Valve TR P. Srnxbcbz018oh/sRAP BUSGHIXV0ekZr TR Peak Gr.85qgVaVUYX11zqSd Pulmonary Vein S1 Vgwxdpho62.5cm/sS2 Ghjwqfel24.53cm/s D2 Odargqdd34.5cm/sPVa [id number] LEFT VENTRICLE The left ventricle is normal size. There is mild to moderate concentric left ventricular hypertrophy. The left ventricular systolic function is normal. The Ejection Fraction is 65%. There is normal LV s egmental wall motion. Transmitral Doppler flow pattern is Grade I-abnormal relaxation pattern. RIGHT VENTRICLE The right ventricle is normal size. There is normal right ventricular wall thickness. The right ventr icular systolic function is normal. ATRIA The left atrium size is normal. The right atrium size is normal. The interatrial septum is intact wit h no evidence for an atrial septal defect or patent foramen ovale as noted on 2-D or Doppler imaging. AORTIC VALVE The aortic valve is not well visualized. Doppler and Color Flow revealed no significant aortic regurg itation. There is no significant aortic valvular stenosis. MITRAL VALVE The mitral valve is normal in structure and function. There is no evidence of mitral valve prolapse. There is no mitral valve stenosis. Doppler and Color-flow revealed trace mitral regurgitation. TRICUSPID VALVE The tricuspid valve is not well visualized. Doppler and Color Flow revealed trace tricuspid regurgita tion with an estimated PAP of 31 mmHg. There is no tricuspid valve stenosis. PULMONIC VALVE The pulmonic valve is not well visualized. Doppler and Color Flow revealed no pulmonic valvular regur gitation. GREAT VESSELS The aortic root is normal in size. The IVC was not visualized. PERICARDIAL EFFUSION There is no evidence of significant pericardial effusion. Critical Notification Critical Value: No <Conclusion> The left ventricular systolic function is normal. The Ejection Fraction is 65%. There is normal LV segmental wall motion. Transmitral Doppler flow pattern is Grade I-abnormal relaxation pattern. Trace mitral regurgitation. Trace tricuspid regurgitation with an estimated PAP of 31 mmHg. There is no evidence of significant pericardial effusion. Signed by : Rickey Terry, Electronically Approved : 03/27/2019 17:04:50
[2019-03-27] MEDS ORDERED: NON FORMULARY ITEM (Albuterol Sulfate (Proventil Hfa) 2 PUFF) IH PRN (19:30)
[2019-03-27] MEDS ORDERED: ALBUTEROL SULFATE 2.5 MG/3 ML NEBU. NEB PRN (19:30)
[2019-03-27] MEDS: CETIRIZINE HCL 10 MG TABLET. PO SCH (21:25)
[2019-03-27] MEDS: NIACIN ER 500 MG TABLET.ER PO SCH (21:25)
[2019-03-27] MEDS: MAGNESIUM CHLORIDE ER 64 MG TABLET.ER PO SCH (21:25)
[2019-03-27] MEDS: CYCLOBENZAPRINE 10 MG TABLET. PO SCH (21:26)
[2019-03-27] MEDS: LOSARTAN POTASSIUM 50 MG TABLET. PO SCH (21:26)
[2019-03-27] MEDS: ZOLPIDEM 5 MG TABLET. PO PRN (21:43)
[2019-03-28 02:00] VITALS: BP 159/84
[2019-03-28] MEDS: LEVOTHYROXINE 125 MCG TABLET PO SCH (06:05)
[2019-03-28 07:15] VITALS: BP 154/75
[2019-03-28 07:30] LABS: CALCIUM 9.6 mg/dL (8.5-10.1); CREATININE 0.9 mg/dL (0.6-1.0); GFR 63.9; POTASSIUM 4.2 mmol/L (3.5-5.1)
[2019-03-28 07:41] LABS: BASO % 0 % (0-3); EOS % 0 % (0-3); HEMATOCRIT 38.1 % (36.0-47.0); HEMOGLOBIN 12.5 g/dL (12.0-15.5); LYMPH # 1.6 x10^3/uL (1.0-4.8); LYMPH % 23 % (24-48); MEAN CORPUSCULAR HEMOGLOBIN 28 pg (25-35); MEAN CORPUSCULAR HGB CONC 33 g/dL (31-37); MEAN CORPUSCULAR VOLUME 85 fL (79-100); MONO # 0.4 x10^3/uL (0.0-1.1); MONO % 6 % (0-9); NEUT % 71 % (31-73); PLATELET COUNT 176 x10^3/uL (140-400); RED BLOOD COUNT 4.49 x10^6/uL (3.50-5.40); RED CELL DISTRIBUTION WIDTH 13.6 % (11.5-14.5); WHITE BLOOD COUNT 7.1 x10^3/uL (4.0-11.0)
[2019-03-28] MEDS: HYDROcodone/APAP 5/325MG 1 TAB TABLET PO PRN ×3 (08:39→19:56)
[2019-03-28] MEDS: FLUoxetine HCL 20 MG CAPSULE PO SCH (08:39)
[2019-03-28] MEDS: PANTOPRAZOLE 40 MG TABLET.DR. PO SCH (08:39)
[2019-03-28] MEDS: CYCLOBENZAPRINE 10 MG TABLET. PO SCH ×3 (08:39→21:12)
[2019-03-28] MEDS: FLUTICASONE 50MCG/NASAL SPRAY 16GM BOTTLE. NS SCH (08:39)
[2019-03-28] MEDS ORDERED: traZODone 50 MG TABLET. PO SCH (09:00)
[2019-03-28 10:35] VITALS: BP 147/63
--- NOTE | 2019-03-28 12:51 | PDOC ---
DOLLY FAROOQ BIT SHAVER 03/28/19 1251: CARDIO Progress Notes Date and Time Date of Service 03/28/2019 Time of Evaluation 1220 Subjective Subjective: No Chest Pain, No shortness of breath, No Palpitations Vitals Vitals Vital Signs Date Time Temp Pulse Resp B/P (MAP) Pulse Ox O2 Delivery O2 Flow Rate FiO2 03/28/19 10:35 97.7 75 20 147/63 (91) 96 Room Air 97.7 03/28/19 09:51 2.0 Weight Weight [ ] Input and Output Intake and Output Intake and Output 03/28/19 07:00 Intake Total 800 ml Output Total 2900 ml Balance -2100 ml Intake Oral 200 ml IV Total 600 ml Output Urine Total 2900 ml Laboratory Labs Laboratory Tests Test 03/28/19 06:33 White Blood Count 7.1 x10^3/uL (4.0-11.0) Red Blood Count 4.49 x10^6/uL (3.50-5.40) Hemoglobin 12.5 g/dL (12.0-15.5) Hematocrit 38.1 % (36.0-47.0) Mean Corpuscular Volume 85 fL (79-100) Mean Corpuscular Hemoglobin 28 pg (25-35) Mean Corpuscular Hemoglobin Concent 33 g/dL (31-37) Red Cell Distribution Width 13.6 % (11.5-14.5) Platelet Count 176 x10^3/uL (140-400) Neutrophils (%) (Auto) 71 % (31-73) Lymphocytes (%) (Auto) 23 % (24-48) Monocytes (%) (Auto) 6 % (0-9) Eosinophils (%) (Auto) 0 % (0-3) Basophils (%) (Auto) 0 % (0-3) Neutrophils # (Auto) 5.0 x10^3/uL (1.8-7.7) Lymphocytes # (Auto) 1.6 x10^3/uL (1.0-4.8) Monocytes # (Auto) 0.4 x10^3/uL (0.0-1.1) Eosinophils # (Auto) 0.0 x10^3/uL (0.0-0.7) Basophils # (Auto) 0.0 x10^3/uL (0.0-0.2) Sodium Level 144 mmol/L (136-145) Potassium Level 4.2 mmol/L (3.5-5.1) Chloride Level 106 mmol/L (98-107) Carbon Dioxide Level 28 mmol/L (21-32) Anion Gap 10 (6-14) Blood Urea Nitrogen 13 mg/dL (7-20) Creatinine 0.9 mg/dL (0.6-1.0) Estimated GFR (Cockcroft-Gault) 63.9 Glucose Level 104 mg/dL (70-99) Calcium Level 9.6 mg/dL (8.5-10.1) Physical Exam HEENT: Neck Supple W Full Motion Chest: Symmetric LUNGS: Clear to Auscultation Heart: S1S2, RRR (SR), other (tele sinus reg, ) Abdomen: Soft N/T Extremities: No Calf Tenderness Neurology: alert, oriented, follow commands Assessment Assessment 1. Accelerated HTN: better controlled 2. Chest pain: likely from anxiety and high BP. LHC revealed no significant CAD. 3. HLP: LDL 180, intolerant to statin 4. PSVT: low Mg contributing, no further recurrence. 5. Morbid obesity: has gained about 25 pounds in 1 yr. 6. Hx of ELMER: reported recent test neg. 7. Hx of TIA and Migraine 8. Suspect ALEXANDER 9. anxiety Recommendations Continue with current BP regimen. Will need PCSK9i, info provided to pt, Will defer to her PCP. Takes niacin at home If pt does continue to have palpitations at home then will consider for outpt event monitor and consider BB addition. . Follow up in office PRN Continue with ASA. Will need wt loss. Dietitian consult. FIDE FARR MD 03/28/19 1718: CARDIO Progress Notes Assessment Assessment Patient seen and examined. Agree with BARBECUE COOK's assessment and plan. Cardiac catheterization yesterday did not show any significant coronary artery disease Blood pressure better controlled Consider workup for GI causes of her chest pain DOLLY FAROOQ APRN Mar 28, 2019 12:51 FIDE FARR MD Mar 28, 2019 17:18
--- NOTE | 2019-03-28 13:03 | PDOC ---
[employer] PROGRESS NOTE Chief Complaint Chief Complaint Chest pain HTN Morbid obesity: has gained about 25 pounds in 1 yr. Hx of ELMER: reported recent test neg. Hx of TIA and Migraine Possible nonobstructive CAD Anemia Anxiety Diverticulosis Hyperlipidemia H/O colon polyps History of Present Illness History of Present Illness 03/28/19 Pt seen and examined at bedside Pt watching TV with SHARA ARIAS RN 03/27/19 Pt seen and examined at bedside with SHARA ARIAS RN Vitals/I&O Vitals/I&O: Vital Signs Date Time Temp Pulse Resp B/P (MAP) Pulse Ox O2 Delivery O2 Flow Rate FiO2 03/28/19 10:35 97.7 75 20 147/63 (91) 96 Room Air 97.7 03/28/19 09:51 2.0 I & O 03/27/19 03/27/19 03/28/19 15:00 23:00 07:00 Intake Total 200 ml 600 ml Output Total 600 ml 2300 ml Balance -400 ml -1700 ml Physical Exam General: Alert, Oriented X3, Cooperative, No acute distress Heart: Regular rate (SR), Normal S1, Normal S2, No murmurs Lungs: Clear, Other Abdomen: Soft, No tenderness Extremities: No clubbing, No cyanosis, Other (trace edema) Skin: No breakdown, No significant lesion Labs Labs: Laboratory Tests Test 03/28/19 06:33 White Blood Count 7.1 x10^3/uL (4.0-11.0) Red Blood Count 4.49 x10^6/uL (3.50-5.40) Hemoglobin 12.5 g/dL (12.0-15.5) Hematocrit 38.1 % (36.0-47.0) Mean Corpuscular Volume 85 fL (79-100) Mean Corpuscular Hemoglobin 28 pg (25-35) Mean Corpuscular Hemoglobin Concent 33 g/dL (31-37) Red Cell Distribution Width 13.6 % (11.5-14.5) Platelet Count 176 x10^3/uL (140-400) Neutrophils (%) (Auto) 71 % (31-73) Lymphocytes (%) (Auto) 23 % (24-48) Monocytes (%) (Auto) 6 % (0-9) Eosinophils (%) (Auto) 0 % (0-3) Basophils (%) (Auto) 0 % (0-3) Neutrophils # (Auto) 5.0 x10^3/uL (1.8-7.7) Lymphocytes # (Auto) 1.6 x10^3/uL (1.0-4.8) Monocytes # (Auto) 0.4 x10^3/uL (0.0-1.1) Eosinophils # (Auto) 0.0 x10^3/uL (0.0-0.7) Basophils # (Auto) 0.0 x10^3/uL (0.0-0.2) Sodium Level 144 mmol/L (136-145) Potassium Level 4.2 mmol/L (3.5-5.1) Chloride Level 106 mmol/L (98-107) Carbon Dioxide Level 28 mmol/L (21-32) Anion Gap 10 (6-14) Blood Urea Nitrogen 13 mg/dL (7-20) Creatinine 0.9 mg/dL (0.6-1.0) Estimated GFR (Cockcroft-Gault) 63.9 Glucose Level 104 mg/dL (70-99) Calcium Level 9.6 mg/dL (8.5-10.1) Review of Systems Review of Systems: Denies TEJADA Denies vision change Assessment and Plan Assessmemt and Plan Problems Medical Problems: (1) Atypical chest pain Status: Acute (2) Morbid obesity Status: Chronic (3) PSVT (paroxysmal supraventricular tachycardia) Status: Acute Assessment Chest pain HTN Morbid obesity: has gained about 25 pounds in 1 yr. Hx of ELMER: reported recent test neg. Hx of TIA and Migraine Possible nonobstructive CAD Anemia Anxiety Diverticulosis Hyperlipidemia H/O colon polyps Plan Cardiac monitoring EKG Serial enzymes Daily ASA DVT prophylaxis PT/OT Full code Home meds Hope to D/C today once clear with cardio Comment Review of Relevant I have reviewed the following items radha (where applicable) has been applied. Medications: Current Medications Medications (Trade) Dose Ordered Sig/Aretha Route PRN Reason Start Time Stop Time Status Last Admin Dose Admin Nitroglycerin (Nitroglycerin) 200 mcg 1X ONCE IART 03/27/19 13:30 03/27/19 13:43 DC 03/27/19 13:41 Verapamil HCl (Verapamil) 2.5 mg 1X ONCE IART 03/27/19 13:30 03/27/19 13:43 DC 03/27/19 13:54 Heparin Sodium (Porcine) (Heparin Sodium) 2,500 unit 1X ONCE IART 03/27/19 13:30 03/27/19 13:43 DC 03/27/19 13:41 Heparin Sodium/ Sodium Chloride (HEPARIN for ARTERIAL LINE FLUSH) 1,000 unit 1X ONCE IART 03/27/19 13:30 03/27/19 13:43 DC 03/27/19 13:41 Midazolam HCl (Versed) 2 mg 1X ONCE IV 03/27/19 13:30 03/27/19 13:43 DC 03/27/19 13:41 Fentanyl Citrate (Fentanyl 2ml Vial) 100 mcg 1X ONCE IV 03/27/19 13:30 03/27/19 13:43 DC 03/27/19 13:41 Iodixanol (Visipaque 320) 61 ml 1X ONCE IART 03/27/19 13:30 03/27/19 13:43 DC 03/27/19 13:41 Lidocaine HCl (Xylocaine-Mpf 1% 5ml Vial) 5 ml 1X ONCE INJ 03/27/19 13:30 03/27/19 13:43 DC 03/27/19 13:41 Acetaminophen/ Hydrocodone Bitart (Lortab 5/325) 1 tab PRN Q4HRS PRN PO PAIN 03/27/19 16:00 03/28/19 08:39 Cyclobenzaprine HCl (Flexeril) 10 mg TID PO 03/27/19 21:00 03/28/19 08:39 Fluticasone Propionate (Flonase) 2 spray DAILY NS 03/28/19 09:00 03/28/19 08:39 Levothyroxine Sodium (Synthroid) 125 mcg DAILY06 PO 03/28/19 06:00 03/28/19 06:05 Niacin (Slo-Niacin) 500 mg HS PO 03/27/19 21:00 03/27/19 21:32 Fluoxetine HCl (PROzac) 40 mg DAILY PO 03/28/19 09:00 03/28/19 08:39 Losartan Potassium (Cozaar) 100 mg QHS PO 03/27/19 21:00 03/27/19 21:32 Pantoprazole Sodium (Protonix) 40 mg DAILYAC PO 03/28/19 07:30 03/28/19 08:39 Zolpidem Tartrate (Ambien) 5 mg PRN QHS PRN PO INSOMNIA, MRX1 03/27/19 19:45 03/27/19 21:46 Magnesium Chloride (Mag Delay) 64 mg QHS PO 03/27/19 21:00 03/27/19 21:32 Cetirizine HCl (ZyrTEC) 10 mg QHS PO 03/27/19 21:00 03/27/19 21:32 SOL BARRETT III DO Mar 28, 2019 13:03
[2019-03-28 14:44] VITALS: BP 157/73
--- NOTE | 2019-03-28 15:19 | PDOC2 ---
GI CONSULT Reason For Consult: Chest pain, cardiac etiology ruled out HPI: HPI: 58 y/o female admitted 03/26/19 w/ chest pain. Reports "stabbing" central chest pain since the weekend that is worse when touched, better after eating, and sometimes radiates to her back. Unrevealing cardiac cath yesterday. Per nurse, discharged discussed but pt requested GI eval for possible EGD. Pain seems to get worse when doctors are around. Has requested oxygen with normal sats. Tells me she can't follow-up as outpatient because the pain would prevent her from driving. H/o GERD - previously on omeprazole QD but stopped "awhile ago" and now takes about twice weekly. Admitted in the past w/ NCCP. No dysphagia though once after teeth were pulled had some scrambled eggs that she had to cough up. In the process of getting dentures. Vomited bile last - no n/v since. No hematemesis, abd pain, diarrhea or melena. Saw red blood associated w/ passing a hard stool last Tuesday or Tuesday. Sometimes has constipation attributed to pain medications - takes acidophilus , eats yogurt, and occasionally takes Colace. Past notes suggest h/o IBS. Has gained 25 pounds in a year. EGD and colonoscopy [place] [address] Vick showed low-grade reflux and pre-pyloric ulcer (biopsy negative for H. pylori and c/w NSAID effect), diverticulosis, and hemorrhoids. Did have adenomatous colon polyp in 2008. S/p cholecystectomy (for "gravel"). H/o abnormal LFTs and fatty liver, Hepatitis panel negative. No pancreas history. Takes ASA 81mg QD, no other NSAIDs. Chronic knee pain on Lortab QID at home (getting Q 4 hours here). PMH: PMH: HTN, HLD, ELMER, migraines, TIA, anxiety, depression, OA, fibromyalgia, hypothyroidism appendectomy, cholecystectomy, , tubal ligation, tonsillectomy, hysterectomy, joint replacements/debridement FH: Family History: CAD, CVA, Hypertension Social History: Smoke: Quit ALCOHOL: none Drugs: None ROS: GEN: Denies fevers, chills, sweats HEENT: Denies blurred vision, sore throat CV: +chest pain RESP: Denies shortness of air, cough GI: Per HPI : Denies hematuria, dysuria ENDO: +weight gain NEURO: Denies confusion, dizziness MSK: +chronic right knee pain SKIN: Denies jaundice, pruritus Vitals: Vitals: Vital Signs Date Time Temp Pulse Resp B/P (MAP) Pulse Ox O2 Delivery O2 Flow Rate FiO2 03/28/19 14:44 97.6 75 20 157/73 (101) 96 Room Air 97.6 03/28/19 14:07 2.0 Labs: Labs: Laboratory Tests Test 03/28/19 06:33 White Blood Count 7.1 x10^3/uL (4.0-11.0) Red Blood Count 4.49 x10^6/uL (3.50-5.40) Hemoglobin 12.5 g/dL (12.0-15.5) Hematocrit 38.1 % (36.0-47.0) Mean Corpuscular Volume 85 fL (79-100) Mean Corpuscular Hemoglobin 28 pg (25-35) Mean Corpuscular Hemoglobin Concent 33 g/dL (31-37) Red Cell Distribution Width 13.6 % (11.5-14.5) Platelet Count 176 x10^3/uL (140-400) Neutrophils (%) (Auto) 71 % (31-73) Lymphocytes (%) (Auto) 23 % (24-48) Monocytes (%) (Auto) 6 % (0-9) Eosinophils (%) (Auto) 0 % (0-3) Basophils (%) (Auto) 0 % (0-3) Neutrophils # (Auto) 5.0 x10^3/uL (1.8-7.7) Lymphocytes # (Auto) 1.6 x10^3/uL (1.0-4.8) Monocytes # (Auto) 0.4 x10^3/uL (0.0-1.1) Eosinophils # (Auto) 0.0 x10^3/uL (0.0-0.7) Basophils # (Auto) 0.0 x10^3/uL (0.0-0.2) Sodium Level 144 mmol/L (136-145) Potassium Level 4.2 mmol/L (3.5-5.1) Chloride Level 106 mmol/L (98-107) Carbon Dioxide Level 28 mmol/L (21-32) Anion Gap 10 (6-14) Blood Urea Nitrogen 13 mg/dL (7-20) Creatinine 0.9 mg/dL (0.6-1.0) Estimated GFR (Cockcroft-Gault) 63.9 Glucose Level 104 mg/dL (70-99) Calcium Level 9.6 mg/dL (8.5-10.1) Allergies: Coded Allergies: prochlorperazine (Verified Allergy, Severe, 04/26/17) SKIN CRAWLING Fenofibrate Nanocrystallized (Verified Allergy, Intermediate, migraines, 04/26/17) celecoxib (Verified Allergy, Intermediate, 04/26/17) colesevelam (Verified Allergy, Intermediate, 04/26/17) dimenhydrinate (Verified Allergy, Intermediate, 04/26/17) TOLERATES BENADRYL metoclopramide (Verified Allergy, Intermediate, itching, 04/26/17) pantoprazole sodium (Verified Allergy, Intermediate, rash, 04/26/17) pregabalin (Verified Allergy, Intermediate, rash, 04/26/17) selegiline (Verified Allergy, Intermediate, 04/26/17) INCREASE LIVER ENZYMES topiramate (Verified Allergy, Intermediate, 04/26/17) DOESN'T WORK FOR MIGRIANES vilazodone hydrochloride (Verified Allergy, Intermediate, 04/26/17) lansoprazole (Verified Allergy, Mild, 04/26/17) "DOESN'T WORK" zonisamide (Verified Allergy, Mild, 04/26/17) NSAIDS (Non-Steroidal Anti-Inflamma (Verified Adverse Reaction, Intermediate, ULCERS, 04/26/17) Sjtllkw-Ufe-[id number] Reductase Inhibitor (Verified Adverse Reaction, Intermediate, INCREASED LIVER ENZYMES, 04/26/17) Medications: Current Medications Medications (Trade) Dose Ordered Sig/Aretha Route PRN Reason Start Time Stop Time Status Last Admin Dose Admin Acetaminophen/ Hydrocodone Bitart (Lortab 5/325) 1 tab PRN Q4HRS PRN PO PAIN 03/27/19 16:00 03/28/19 13:03 Cyclobenzaprine HCl (Flexeril) 10 mg TID PO 03/27/19 21:00 03/28/19 13:03 Fluticasone Propionate (Flonase) 2 spray DAILY NS 03/28/19 09:00 03/28/19 08:39 Levothyroxine Sodium (Synthroid) 125 mcg DAILY06 PO 03/28/19 06:00 03/28/19 06:05 Niacin (Slo-Niacin) 500 mg HS PO 03/27/19 21:00 03/27/19 21:32 Fluoxetine HCl (PROzac) 40 mg DAILY PO 03/28/19 09:00 03/28/19 08:39 Losartan Potassium (Cozaar) 100 mg QHS PO 03/27/19 21:00 03/27/19 21:32 Pantoprazole Sodium (Protonix) 40 mg DAILYAC PO 03/28/19 07:30 03/28/19 08:39 Zolpidem Tartrate (Ambien) 5 mg PRN QHS PRN PO INSOMNIA, MRX1 03/27/19 19:45 03/27/19 21:46 Magnesium Chloride (Mag Delay) 64 mg QHS PO 03/27/19 21:00 03/27/19 21:32 Cetirizine HCl (ZyrTEC) 10 mg QHS PO 03/27/19 21:00 03/27/19 21:32 Imaging: Imaging: Cardiac cath 03/27 FINDINGS 1. Hemodynamics: Left ventricular end-diastolic pressure of 15 mmHg. No pullback gradient across the aortic valve. 2. Coronary angiography: a. The left main coronary artery arose from the left sinus of Valsalva, gave rise to the left anterior descending and left circumflex arteries and did not show any significant stenosis. b. The left anterior descending artery did not show any significant stenosis. c. The left circumflex artery did not show any significant stenosis. d. The right coronary artery was a large and dominant vessel arising from the right sinus of Valsalva that did not show any significant stenosis. Conclusion No significant coronary artery disease. Echocardiogram <Conclusion> The left ventricular systolic function is normal. The Ejection Fraction is 65%. There is normal LV segmental wall motion. Transmitral Doppler flow pattern is Grade I-abnormal relaxation pattern. Trace mitral regurgitation. Trace tricuspid regurgitation with an estimated PAP of 31 mmHg. There is no evidence of significant pericardial effusion. CXR 03/26 IMPRESSION: No area of consolidation is seen. PE: GEN: NAD, morbidly obese HEENT: Atraumatic, PERRL LUNGS: CTAB HEART: RRR ABD: NABS, S/ND/NT - tender to light tough in central and upper chest EXTREMITY: No edema SKIN: No rashes, no jaundice NEURO/PSYCH: A & O �3 A/P: A/P: Atypical chest pain GERD, h/o NSAID ulcer - non-compliant w/ PPI CRC screen, h/o adenomatous polyp - UTD Diverticulosis, hemorrhoids IBS, intermittent constipation S/p cholecystectomy Elevated LFTs, fatty liver Chronic pain on Lortab, BMI 52.9, anxiety -- Possibly related to GERD though also seems to have MSK component. Agree w/ daily PPI - discussed w/ her. Has listed allergies to lansoprazole and pantoprazole but apparently tolerating pantoprazole here and omeprazole at home. Try GI cocktail. Treat constipation as needed - 2 stools charted yesterday. Reviewed w/ Dr. Payne - can proceed w/ EGD tomorrow afternoon. AYANA CUEVAS Mar 28, 2019 15:19
[2019-03-28] MEDS ORDERED: POLYETHYLENE GLYCOL 3350 17 GM PACKET. PO PRN (15:30)
[2019-03-28] MEDS ORDERED: LIDO:MAALOX 1:1 20 ML SINGLE DOSE. PO PRN (15:30)
[2019-03-28 19:00] VITALS: BP 124/74
[2019-03-28] MEDS: CETIRIZINE HCL 10 MG TABLET. PO SCH (21:12)
[2019-03-28] MEDS: NIACIN ER 500 MG TABLET.ER PO SCH (21:12)
[2019-03-28] MEDS: LOSARTAN POTASSIUM 50 MG TABLET. PO SCH (21:12)
[2019-03-28] MEDS: MAGNESIUM CHLORIDE ER 64 MG TABLET.ER PO SCH (21:12)
[2019-03-28] MEDS: ZOLPIDEM 5 MG TABLET. PO PRN (21:16)
[2019-03-28] MEDS: traZODone 50 MG TABLET. PO SCH (22:03)
[2019-03-28 23:00] VITALS: BP 143/85
--- NOTE | 2019-03-29 00:07 | DS ---
DATE OF DISCHARGE: 03/28/2019 ADMISSION DIAGNOSIS: Chest pain. DISCHARGE DIAGNOSIS: Atypical chest pain. CONSULTS: Cardiology. PROCEDURES: Cardiac catheterization, it was negative. HOSPITAL COURSE: The patient is a pleasant 58-year-old female who presented with chest pain. She was admitted. We did serial enzymes, serial EKGs, consulted Cardiology. She went for cardiac catheterization, it was negative. I saw her and examined this morning, she is doing well. We plan to discharge. DISPOSITION: Home. ACTIVITY: As tolerated. DIET: Low sodium. MEDICATIONS: Please see the MRAD. TOTAL TIME: 33 minutes. NIAL Jimi BARRETT DO DR: VERONICA/millie JOB#: [id number] / [id number]
[2019-03-29 03:00] VITALS: BP 131/57
[2019-03-29] MEDS: LEVOTHYROXINE 125 MCG TABLET PO SCH (05:55)
[2019-03-29] MEDS: PANTOPRAZOLE 40 MG TABLET.DR. PO SCH (05:55)
[2019-03-29 07:00] VITALS: BP 141/82
[2019-03-29 08:35] LABS: ALBUMIN 3.5 g/dL (3.4-5.0); BASO % 1 % (0-3); CALCIUM 9.9 mg/dL (8.5-10.1); DIRECT BILIRUBIN 0.2 mg/dL (0.0-0.2); EOS # 0.1 x10^3/uL (0.0-0.7); EOS % 2 % (0-3); GFR 56.6; HEMATOCRIT 38.8 % (36.0-47.0); HEMOGLOBIN 12.9 g/dL (12.0-15.5); LYMPH # 2.1 x10^3/uL (1.0-4.8); LYMPH % 35 % (24-48); MEAN CORPUSCULAR HEMOGLOBIN 28 pg (25-35); MEAN CORPUSCULAR HGB CONC 33 g/dL (31-37); MEAN CORPUSCULAR VOLUME 85 fL (79-100); MONO # 0.4 x10^3/uL (0.0-1.1); MONO % 7 % (0-9); NEUT # 3.3 x10^3/uL (1.8-7.7); NEUT % 55 % (31-73); PLATELET COUNT 199 x10^3/uL (140-400); POTASSIUM 3.6 mmol/L (3.5-5.1); RED BLOOD COUNT 4.56 x10^6/uL (3.50-5.40); RED CELL DISTRIBUTION WIDTH 13.6 % (11.5-14.5); TOTAL BILIRUBIN 0.7 mg/dL (0.2-1.0)
[2019-03-29] MEDS: HYDROcodone/APAP 5/325MG 1 TAB TABLET PO PRN ×4 (09:35→21:24)
[2019-03-29] MEDS: ASPIRIN 325 MG TABLET PO SCH (09:38)
[2019-03-29] MEDS: CYCLOBENZAPRINE 10 MG TABLET. PO SCH ×3 (09:38→21:25)
[2019-03-29] MEDS: FLUoxetine HCL 20 MG CAPSULE PO SCH (09:39)
[2019-03-29] MEDS: FLUTICASONE 50MCG/NASAL SPRAY 16GM BOTTLE. NS SCH (09:39)
--- NOTE | 2019-03-29 09:46 | PDOC ---
[employer] PROGRESS NOTE Chief Complaint Chief Complaint Chest pain HTN Morbid obesity: has gained about 25 pounds in 1 yr. Hx of ELMER: reported recent test neg. Hx of TIA and Migraine Possible nonobstructive CAD Anemia Anxiety Diverticulosis Hyperlipidemia H/O colon polyps History of Present Illness History of Present Illness 03/29/19 Pt seen and examined at bedside with SHARA Pt was planned for discharge yesterday, but complained of pain last night so stayed for further evaluation Plan for EGD at 3 PM HUGO VÁZQUEZ 03/28/19 Pt seen and examined at bedside Pt watching TV with SHARA ARIAS RN 03/27/19 Pt seen and examined at bedside with SHARA ARIAS RN Vitals/I&O Vitals/I&O: Vital Signs Date Time Temp Pulse Resp B/P (MAP) Pulse Ox O2 Delivery O2 Flow Rate FiO2 03/29/19 09:39 18 Room Air 03/29/19 07:00 97.5 86 141/82 (101) 95 97.5 03/28/19 23:00 2.0 I & O 03/28/19 03/28/19 03/29/19 14:59 22:59 06:59 Intake Total 500 ml 1000 ml 1000 ml Output Total 1450 ml 0 ml Balance 500 ml -450 ml 1000 ml Physical Exam General: Alert, Oriented X3, Cooperative, No acute distress Heart: Regular rate (SR), Normal S1, Normal S2, No murmurs Lungs: Clear, Other Abdomen: Soft, No tenderness Extremities: No clubbing, No cyanosis, Other (trace edema) Skin: No breakdown, No significant lesion Labs Labs: Laboratory Tests Test 03/29/19 07:10 White Blood Count 6.0 x10^3/uL (4.0-11.0) Red Blood Count 4.56 x10^6/uL (3.50-5.40) Hemoglobin 12.9 g/dL (12.0-15.5) Hematocrit 38.8 % (36.0-47.0) Mean Corpuscular Volume 85 fL (79-100) Mean Corpuscular Hemoglobin 28 pg (25-35) Mean Corpuscular Hemoglobin Concent 33 g/dL (31-37) Red Cell Distribution Width 13.6 % (11.5-14.5) Platelet Count 199 x10^3/uL (140-400) Neutrophils (%) (Auto) 55 % (31-73) Lymphocytes (%) (Auto) 35 % (24-48) Monocytes (%) (Auto) 7 % (0-9) Eosinophils (%) (Auto) 2 % (0-3) Basophils (%) (Auto) 1 % (0-3) Neutrophils # (Auto) 3.3 x10^3/uL (1.8-7.7) Lymphocytes # (Auto) 2.1 x10^3/uL (1.0-4.8) Monocytes # (Auto) 0.4 x10^3/uL (0.0-1.1) Eosinophils # (Auto) 0.1 x10^3/uL (0.0-0.7) Basophils # (Auto) 0.0 x10^3/uL (0.0-0.2) Sodium Level 142 mmol/L (136-145) Potassium Level 3.6 mmol/L (3.5-5.1) Chloride Level 103 mmol/L (98-107) Carbon Dioxide Level 30 mmol/L (21-32) Anion Gap 9 (6-14) Blood Urea Nitrogen 12 mg/dL (7-20) Creatinine 1.0 mg/dL (0.6-1.0) Estimated GFR (Cockcroft-Gault) 56.6 Glucose Level 84 mg/dL (70-99) Calcium Level 9.9 mg/dL (8.5-10.1) Total Bilirubin 0.7 mg/dL (0.2-1.0) Direct Bilirubin 0.2 mg/dL (0.0-0.2) Aspartate Amino Transf (AST/SGOT) 99 U/L (15-37) Alanine Aminotransferase (ALT/SGPT) 101 U/L (14-59) Alkaline Phosphatase 133 U/L (46-116) Total Protein 7.0 g/dL (6.4-8.2) Albumin 3.5 g/dL (3.4-5.0) Review of Systems Review of Systems: no co weakness no co SOB Assessment and Plan Assessmemt and Plan Problems Medical Problems: (1) Atypical chest pain Status: Acute (2) Chronic pain Status: Chronic (3) Diverticulosis Status: Chronic (4) GERD (gastroesophageal reflux disease) Status: Chronic (5) Hemorrhoids Status: Chronic (6) IBS (irritable bowel syndrome) Status: Chronic (7) Morbid obesity Status: Chronic (8) PSVT (paroxysmal supraventricular tachycardia) Status: Acute Assessment Chest pain HTN Morbid obesity: has gained about 25 pounds in 1 yr. Hx of ELMER: reported recent test neg. Hx of TIA and Migraine Possible nonobstructive CAD Anemia Anxiety Diverticulosis Hyperlipidemia H/O colon polyps Plan Serial enzymes EKG Daily ASA Cardiac monitoring DVT prophylaxis PT/OT Home meds Full code Pt has EGD scheduled today at 3 p.m. Appreciate GI input Comment Review of Relevant I have reviewed the following items radha (where applicable) has been applied. Medications: Current Medications Medications (Trade) Dose Ordered Sig/Aretha Route PRN Reason Start Time Stop Time Status Last Admin Dose Admin Multi-Ingredient Mouthwash/Gargle (Gi Cocktail) 20 ml PRN QID PRN PO CHEST PAIN 03/28/19 15:30 03/28/19 18:42 Trazodone HCl (Desyrel) 50 mg HS PO 03/28/19 22:00 03/28/19 22:03 SOL BARRETT III DO Mar 29, 2019 09:46
[2019-03-29 11:00] VITALS: BP 156/71
--- NOTE | 2019-03-29 13:20 | NUR ---
SS following up with discharge planning. No discharge needs noted at this time. SS will continue to follow for discharge planning.
[2019-03-29] MEDS ORDERED: LIDOCAINE 2% PF 5 ML VIAL. ONE (13:56)
[2019-03-29] MEDS ORDERED: PROPOFOL 20 ML IV ONE (13:56)
[2019-03-29] MEDS ORDERED: IV RINGERS,LACTATED 1000ML 1,000 ML IV ONE (14:30)
--- NOTE | 2019-03-29 14:54 | PDOC4 ---
PROCEDURE Procedure EGD Indication: NCCP Meds: per anesthesia Findings: E--less than or equal to Grade A reflux at 40cm. G--Normal D--normal to second portion. Ly. well. IMP: Reflux esophagitis, endoscopically mild (usually the case with NCCP from reflux). REC: Daily PPI. Thanks. RORO ELDER MD Mar 29, 2019 14:54
[2019-03-29 15:00] VITALS: BP 158/78
[2019-03-29 19:55] VITALS: BP 164/87
[2019-03-29] MEDS: CETIRIZINE HCL 10 MG TABLET. PO SCH (21:23)
[2019-03-29] MEDS: traZODone 50 MG TABLET. PO SCH (21:23)
[2019-03-29] MEDS: MAGNESIUM CHLORIDE ER 64 MG TABLET.ER PO SCH (21:24)
[2019-03-29] MEDS: LOSARTAN POTASSIUM 50 MG TABLET. PO SCH (21:24)
[2019-03-29] MEDS: ZOLPIDEM 5 MG TABLET. PO PRN (21:25)
[2019-03-29] MEDS: NIACIN ER 500 MG TABLET.ER PO SCH (21:25)
[2019-03-29 22:47] VITALS: BP 153/74
[2019-03-30] MEDS: HYDROcodone/APAP 5/325MG 1 TAB TABLET PO PRN (02:50)
[2019-03-30 02:51] VITALS: BP 180/95
[2019-03-30 04:11] LABS: BASO % 1 % (0-3); EOS # 0.2 x10^3/uL (0.0-0.7); EOS % 3 % (0-3); HEMATOCRIT 38.3 % (36.0-47.0); HEMOGLOBIN 12.7 g/dL (12.0-15.5); LYMPH # 1.8 x10^3/uL (1.0-4.8); LYMPH % 32 % (24-48); MEAN CORPUSCULAR HEMOGLOBIN 28 pg (25-35); MEAN CORPUSCULAR HGB CONC 33 g/dL (31-37); MEAN CORPUSCULAR VOLUME 85 fL (79-100); MONO # 0.4 x10^3/uL (0.0-1.1); MONO % 8 % (0-9); NEUT # 3.1 x10^3/uL (1.8-7.7); NEUT % 57 % (31-73); PLATELET COUNT 183 x10^3/uL (140-400); RED BLOOD COUNT 4.49 x10^6/uL (3.50-5.40); RED CELL DISTRIBUTION WIDTH 13.3 % (11.5-14.5); WHITE BLOOD COUNT 5.5 x10^3/uL (4.0-11.0)
[2019-03-30 04:26] LABS: GFR 56.6; POTASSIUM 3.9 mmol/L (3.5-5.1)
[2019-03-30 07:00] VITALS: BP 165/89
[2019-03-30] MEDS: PANTOPRAZOLE 40 MG TABLET.DR. PO SCH (07:44)
[2019-03-30] MEDS: LEVOTHYROXINE 125 MCG TABLET PO SCH (07:44)
[2019-03-30] MEDS: FLUoxetine HCL 20 MG CAPSULE PO SCH (09:18)
[2019-03-30] MEDS: FLUTICASONE 50MCG/NASAL SPRAY 16GM BOTTLE. NS SCH (09:19)
[2019-03-30] MEDS: ASPIRIN 325 MG TABLET PO SCH (09:24)
[2019-03-30] MEDS: CYCLOBENZAPRINE 10 MG TABLET. PO SCH (09:24)
[2019-03-30 11:00] VITALS: BP 165/78
--- NOTE | 2019-03-30 12:35 | NUR ---
Patient states that she has no allergy to protonix. it just doesn't work. explaned how to take them and its daily.
== END 2019-03-30 13:59 | disposition home or self-care (01) | DRG 287 ==
LOC: ER 17:51 → 2 SOUTH 20:53 → OBSVTOIN 03-28 09:00
PROVIDERS: ADMIT Internal Medicine; ATTEND Internal Medicine
PROC: 4A023N7 Measurement of Cardiac Sampling and Pressure, Left Heart, Percutaneous Approach (ICD-10-PCS; principal; 2019-03-27)
PROC: B2111ZZ Fluoroscopy of Multiple Coronary Arteries using Low Osmolar Contrast (ICD-10-PCS; 2019-03-27)
PROC: 0DJ08ZZ Inspection of Upper Intestinal Tract, Via Natural or Artificial Opening Endoscopic (ICD-10-PCS; 2019-03-28)
DX: R07.89 Other chest pain (principal); Z68.43 Body mass index [BMI] 50.0-59.9, adult; I47.1 Supraventricular tachycardia; K21.0 Gastro-esophageal reflux disease with esophagitis; D12.6 Benign neoplasm of colon, unspecified; D64.9 Anemia, unspecified; E03.9 Hypothyroidism, unspecified; E66.01 Morbid (severe) obesity due to excess calories; E78.00 Pure hypercholesterolemia, unspecified; E78.5 Hyperlipidemia, unspecified; F32.9 Major depressive disorder, single episode, unspecified; F41.9 Anxiety disorder, unspecified; G43.909 Migraine, unspecified, not intractable, without status migrainosus; G47.33 Obstructive sleep apnea (adult) (pediatric); G89.29 Other chronic pain; I10 Essential (primary) hypertension; K57.90 Diverticulosis of intestine, part unspecified, without perforation or abscess without bleeding; K58.9 Irritable bowel syndrome, unspecified; K64.9 Unspecified hemorrhoids; M79.7 Fibromyalgia; Z79.82 Long term (current) use of aspirin; Z82.3 Family history of stroke; Z82.49 Family history of ischemic heart disease and other diseases of the circulatory system; Z86.010 Personal history of colon polyps; Z86.73 Personal history of transient ischemic attack (TIA), and cerebral infarction without residual deficits; Z87.11 Personal history of peptic ulcer disease; Z87.891 Personal history of nicotine dependence; Z90.49 Acquired absence of other specified parts of digestive tract; Z90.710 Acquired absence of both cervix and uterus; Z96.653 Presence of artificial knee joint, bilateral; M19.90 Unspecified osteoarthritis, unspecified site; Z88.8 Allergy status to other drugs, medicaments and biological substances; Z91.048 Other nonmedicinal substance allergy status
CPT/HCPCS: 36415; 43235; 71046; 80048; 80053; 80061; 80076; 81001; 82553; 83036; 83520; 83690; 83735; 83880; 84443; 84484; 85025; 85379; 85610; 85730; 87086; 93005; 93306; 93458; 94640; 99152; C1769; C1892; G0378; G0379; J1100; J1644; J2001; J2060; J2250; J2704; J3010; J3475; J3490; J7030; J7120; Q9967; 83516

== ENCOUNTER 2019-04-30 09:10 | Inpatient (IN) | payer BC ==
[~2019-04-30] VITALS: Ht 170.2 cm; Wt 159.4 kg
[~2019-04-30 09:10] MED LIST changes: +HYDR-2761 PO
[2019-04-30] MEDS ORDERED: IPRATRPIUM/ALBUTEROL 0.5/2.5MG 3 ML NEBU. NEB ONE (09:45)
--- NOTE | 2019-04-30 09:49 | PHYS DOC ---
Past Medical History Past Medical History: Anemia, Anxiety, Depression, Diverticulosis, Fibromyalgia, GERD, High Cholesterol, Hypertension, Migraines, Ovarian Cyst, TIA Additional Past Medical Histor: ELMER,SHINGLES,PEPTIC ULCER, COLON POLYPS Past Surgical History: Appendectomy, Cholecystectomy, Hysterectomy, Knee Replacement, Oophorectomy, Tonsillectomy Additional Past Surgical Histo: BILAT KNEE REPLACEMENTS Alcohol Use: None Drug Use: None Adult General Chief Complaint Chief Complaint: SHORTNESS OF BREATH HPI HPI 58-year-old female presents to the emergency department with complaints of chest pain, shortness breath, cough, fever. Initial saturations 88% on room air. P atient denies any nausea, vomiting, abdominal pain. She states the symptoms have worsened over the last couple days. She states she was here in March for similar type symptoms with movement of the hospital and subsequently discharged. Nothing makes her symptoms worse, nothing makes her symptoms better. Review of Systems Review of Systems Constitutional: Positive fever, chills Eyes: Denies change in visual acuity, redness, or eye pain [] HENT: Denies nasal congestion or sore throat [] Respiratory: Cough, shortness of breath Cardiovascular: No additional information not addressed in HPI [] GI: Denies abdominal pain, nausea, vomiting, bloody stools or diarrhea [] Musculoskeletal: Denies back pain or joint pain [] Neurologic: Denies headache, focal weakness or sensory changes [] All other systems were reviewed and found to be within normal limits, except as documented in this note. Current Medications Current Medications Current Medications Medications (Trade) Dose Ordered Sig/Aretha Start Time Stop Time Status Last Admin Dose Admin Acetaminophen/ Hydrocodone Bitart (Lortab 5/325) 1 tab 1X ONCE 04/30/19 11:00 04/30/19 11:01 DC 04/30/19 10:59 1 TAB Albuterol/ Ipratropium (Duoneb) 3 ml 1X ONCE 04/30/19 09:45 04/30/19 09:46 DC 04/30/19 09:53 3 ML Ceftriaxone Sodium (Rocephin) 1 gm 1X ONCE 04/30/19 11:00 04/30/19 11:01 DC 04/30/19 11:20 1 GM Info (CONTRAST GIVEN -- Rx MONITORING) 1 each PRN DAILY PRN 04/30/19 11:00 05/02/19 10:59 Iohexol (Omnipaque 350 Mg/ml) 100 ml STK-MED ONCE 04/30/19 10:57 04/30/19 10:57 DC Sodium Chloride 1,000 ml @ 1,000 mls/hr 1X ONCE 04/30/19 10:00 04/30/19 10:59 DC 04/30/19 09:58 1,000 MLS/HR Allergies Allergies Allergies Coded Allergies Type Severity Reaction Last Updated Verified celecoxib Allergy Intermediate 03/29/19 Yes colesevelam Allergy Intermediate 03/29/19 Yes dimenhydrinate Allergy Intermediate 03/29/19 Yes metoclopramide Allergy Intermediate itching 03/29/19 Yes pantoprazole sodium Allergy Intermediate rash 03/29/19 Yes pregabalin Allergy Intermediate rash 03/29/19 Yes vilazodone hydrochloride Allergy Intermediate 03/29/19 Yes zonisamide Allergy Intermediate 04/30/19 Yes prochlorperazine Adverse Reaction Severe 04/30/19 Yes Fenofibrate Nanocrystallized Adverse Reaction Intermediate migraines 04/30/19 Yes NSAIDS (Non-Steroidal Anti-Inflamma Adverse Reaction Intermediate ULCERS 03/29/19 Yes Mnhtwob-Les-Bio Reductase Inhibitor Adverse Reaction Intermediate INCREASED LIVER ENZYMES 03/29/19 Yes selegiline Adverse Reaction Intermediate 04/30/19 Yes Physical Exam Physical Exam Constitutional: Well developed, well nourished, no distress secondary to shortness of breath, non-toxic appearance. [] HENT: Normocephalic, atraumatic, bilateral external ears normal, oropharynx moist, no oral exudates, nose normal. [] Eyes: PERRLA, EOMI, conjunctiva normal, no discharge. [] Neck: Normal range of motion, no tenderness, supple, no stridor. [] Cardiovascular:Heart rate regular rhythm, no murmur [] Lungs & Thorax: Decreased breath sounds. Since of wheeze appreciated Abdomen: Bowel sounds normal, soft, no tenderness, no masses, no pulsatile masses. [] Skin: Warm, dry, no erythema, no rash. [] Back: No tenderness, no CVA tenderness. [] Extremities: No tenderness, no edema. [] Neurologic: Alert and oriented X 3, no focal deficits noted. [] Psychologic: Affect normal, judgement normal, mood normal. [] Current Patient Data Vital Signs Vital Signs Date Time Temp Pulse Resp B/P (MAP) Pulse Ox O2 Delivery O2 Flow Rate FiO2 04/30/19 10:59 20 93 Room Air 04/30/19 10:20 118 174/78 (110) 04/30/19 09:24 100.2 100.2 Lab Values Laboratory Tests Test 04/30/19 09:25 04/30/19 09:50 Urine Collection Type Unknown Urine Color Yellow Urine Clarity Clear Urine pH 6.0 Urine Specific Sherwood <=1.005 Urine Protein Negative mg/dL (NEG-TRACE) Urine Glucose (UA) Negative mg/dL (NEG) Urine Ketones (Stick) Negative mg/dL (NEG) Urine Blood Negative (NEG) Urine Nitrite Negative (NEG) Urine Bilirubin Negative (NEG) Urine Urobilinogen Dipstick 1.0 mg/dL (0.2 mg/dL) Urine Leukocyte Esterase Negative (NEG) Urine RBC Occ /HPF (0-2) Urine WBC Occ /HPF (0-4) Urine Squamous Epithelial Cells Mod /LPF Urine Bacteria Few /HPF (0-FEW) White Blood Count 8.2 x10^3/uL (4.0-11.0) Red Blood Count 4.75 x10^6/uL (3.50-5.40) Hemoglobin 13.5 g/dL (12.0-15.5) Hematocrit 40.1 % (36.0-47.0) Mean Corpuscular Volume 85 fL (79-100) Mean Corpuscular Hemoglobin 28 pg (25-35) Mean Corpuscular Hemoglobin Concent 34 g/dL (31-37) Red Cell Distribution Width 13.2 % (11.5-14.5) Platelet Count 196 x10^3/uL (140-400) Neutrophils (%) (Auto) 90 % (31-73) H Lymphocytes (%) (Auto) 6 % (24-48) L Monocytes (%) (Auto) 2 % (0-9) Eosinophils (%) (Auto) 0 % (0-3) Basophils (%) (Auto) 0 % (0-3) Neutrophils # (Auto) 7.4 x10^3/uL (1.8-7.7) Lymphocytes # (Auto) 0.5 x10^3/uL (1.0-4.8) L Monocytes # (Auto) 0.2 x10^3/uL (0.0-1.1) Eosinophils # (Auto) 0.0 x10^3/uL (0.0-0.7) Basophils # (Auto) 0.0 x10^3/uL (0.0-0.2) Segmented Neutrophils % 81 % (35-66) H Band Neutrophils % 9 % (0-9) Lymphocytes % 6 % (24-48) L Monocytes % 3 % (0-10) Basophils % 1 % (0-3) Platelet Estimate Adequate (ADEQUATE) D-Dimer (Kanika) 0.95 ug/mlFEU (0.00-0.50) H Sodium Level 139 mmol/L (136-145) Potassium Level 4.5 mmol/L (3.5-5.1) Chloride Level 104 mmol/L (98-107) Carbon Dioxide Level 26 mmol/L (21-32) Anion Gap 9 (6-14) Blood Urea Nitrogen 8 mg/dL (7-20) Creatinine 1.0 mg/dL (0.6-1.0) Estimated GFR (Cockcroft-Gault) 56.6 BUN/Creatinine Ratio 8 (6-20) Glucose Level 118 mg/dL (70-99) H Lactic Acid Level 2.3 mmol/L (0.4-2.0) H Calcium Level 9.9 mg/dL (8.5-10.1) Total Bilirubin 1.1 mg/dL (0.2-1.0) H Aspartate Amino Transferase (AST) 334 U/L (15-37) H Alanine Aminotransferase (ALT) 354 U/L (14-59) H Alkaline Phosphatase 302 U/L (46-116) H Troponin I Quantitative < 0.017 ng/mL (0.000-0.055) NX-Cih-L-Type Natriuretic Peptide 30 pg/mL (0-124) Total Protein 6.7 g/dL (6.4-8.2) Albumin 3.5 g/dL (3.4-5.0) Albumin/Globulin Ratio 1.1 (1.0-1.7) Laboratory Tests 04/30/19 09:50 Laboratory Tests 04/30/19 09:50 EKG EKG EKG reveals sinus tachycardia, heart rate 116, no evidence of acute ST or T wave change.[] Interpretation Time: Interpretation time 0 924 Radiology/Procedures Radiology/Procedures [facility] [address] [place] [address] IMAGING REPORT Signed PATIENT: LULU WEINBERG ACCOUNT: [id number] : 1960 LOCATION: ER AGE: 58 SEX: F EXAM STATUS: REG ER ORD. PHYSICIAN: BRITTANY CELAYA MD REASON: elevated ddimer, room air sat 88% PROCEDURE: CT ANGIOGRAPHY CHEST CT ANGIOGRAPHY CHEST INDICATION: Hypoxia, elevated d-dimer. Comparison: 08/01/2017. TECHNIQUE: Following the uneventful administration of intravenous contrast, 90 cc Isovue-370, axial CT sections were obtained through the lungs and upper abdomen. Multiplanar reconstructions and MIP images were obtained. PQRS compliance statement: One or more of the following individualized dose reduction techniques were utilized for this examination: 1. Automated exposure control 2. Adjustment of the mA and/or kV according to patient size 3. Use of iterative reconstruction technique FINDINGS: Pulmonary vasculature: No evidence of pulmonary thrombolic disease. Lungs and Airways: No pulmonary mass or consolidation. Bibasilar dependent and subsegmental atelectasis. No abnormality of the central airways. Pleura: The pleural spaces are normal. Heart and Mediastinum: The visualized thyroid is normal in size and attenuation. No axillary or supraclavicular lymphadenopathy. No mediastinal, hilar or retrocrural lymphadenopathy. The heart and pericardium are within normal limits. The great vessels of the thorax are normal. Abdomen: Cholecystectomy. Bones and Soft Tissues: Degenerative changes of the spine. IMPRESSION: 1. No evidence of pulmonary thromboembolic disease. 2. No pulmonary mass or consolidation Electronically signed by: Massiel Child MD (04/30/2019 11:22 AM) [facility] DICTATED and SIGNED BY: MASSIEL CHILD MD DATE: 04/30/19 112 [] [facility] [address] [place], [place] [id number] IMAGING REPORT Signed PATIENT: LULU WEINBERG ACCOUNT: [id number] : 1960 LOCATION: ER AGE: 58 SEX: F EXAM STATUS: PRE ER ORD. PHYSICIAN: BRITTANY CELAYA MD REASON: dyspnea PROCEDURE: PORTABLE CHEST 1V PORTABLE CHEST 1V History: Dyspnea Comparison: March 26, 2019 Findings: Single view of the chest is submitted. Pericardial cardiac silhouette is somewhat prominent although unchanged. There is no new lobar consolidation, pleural fluid, pneumothorax. Degree of mild reticular opacity bilaterally is similar. Impression: 1. No acute radiographic abnormality is identified. Electronically signed by: Massiel Waddell MD (04/30/2019 10:17 AM) [id number] DICTATED and SIGNED BY: MASSIEL WADDELL MD DATE: 04/30/19 1017 Course & Med Decision Making Course & Med Decision Making Pertinent Labs and Imaging studies reviewed. (See chart for details) []58-year-old female presents to the emergency department with complaints of chest pain, shortness breath, cough, fever. Initial saturations 88% on room air. Patient denies any nausea, vomiting, abdominal pain. She states the symptoms have worsened over the last couple days. She states she was here in March or similar type symptoms with movement of the hospital and subsequently discharged. Nothing makes her symptoms worse, nothing makes her symptoms better. Patient presented with chest pain, shortness breath, cough, fever. Labs obtained lactic acid 2.3, chronically elevated LFTs. D-dimer is 0.95. No evidence of acute infection however given hypoxia upon initial evaluation will plan for admission. Patient received IV antibiotic therapy as well as blood cultures in the emergency department. It is of note white blood cell count 8.2 Discussed admission with patient and family at bedside. Discussed admission with hospitalist. Dragon Disclaimer Dragon Disclaimer This electronic medical record was generated, in whole or in part, using a voice recognition dictation system. Departure Departure Impression: Primary Impression: Sepsis Additional Impressions: Hypoxia Elevated LFTs Disposition: ADMITTED INPATIENT Admitting Physician: VENECIA Condition: IMPROVED Referrals: RUTH PEREZ (PCP) Problem Qualifiers Primary Impression: Sepsis Sepsis type: sepsis due to unspecified organism Severe sepsis acute organ dysfunction type: unspecified Severe sepsis shock status: without septic shock BRITTANY CELAYA MD Apr 30, 2019 09:49
[2019-04-30 09:53] LABS: BILIRUBIN,URINE NEGATIVE (NEG); CLARITY,URINE CLEAR; COLOR,URINE YELLOW; NITRITE,URINE NEGATIVE (NEG); PROTEIN,URINE NEGATIVE (NEG-TRACE)
[2019-04-30] MEDS ORDERED: IV NORMAL SALINE 1000ML BAG 1,000 ML IV ONE (10:00)
[2019-04-30 10:03] LABS: BASO % 0 % (0-3); EOS % 0 % (0-3); HEMATOCRIT 40.1 % (36.0-47.0); HEMOGLOBIN 13.5 g/dL (12.0-15.5); LYMPH # 0.5 x10^3/uL (1.0-4.8); LYMPH % 6 % (24-48); MEAN CORPUSCULAR HEMOGLOBIN 28 pg (25-35); MEAN CORPUSCULAR HGB CONC 34 g/dL (31-37); MEAN CORPUSCULAR VOLUME 85 fL (79-100); MONO # 0.2 x10^3/uL (0.0-1.1); MONO % 2 % (0-9); NEUT # 7.4 x10^3/uL (1.8-7.7); NEUT % 90 % (31-73); PLATELET COUNT 196 x10^3/uL (140-400); RED BLOOD COUNT 4.75 x10^6/uL (3.50-5.40); RED CELL DISTRIBUTION WIDTH 13.2 % (11.5-14.5); WHITE BLOOD COUNT 8.2 x10^3/uL (4.0-11.0)
[2019-04-30 10:12] LABS: BACTERIA,URINE FEW /HPF (0-FEW); RBC,URINE OCC /HPF (0-2); SQUAMOUS EPITHELIAL CELL,UR MOD /LPF; WBC,URINE OCC /HPF (0-4)
--- NOTE | 2019-04-30 10:20 | RAD ---
PORTABLE CHEST 1V History: Dyspnea Comparison: March 26, 2019 Findings: Single view of the chest is submitted. Pericardial cardiac silhouette is somewhat prominent although unchanged. There is no new lobar consolidation, pleural fluid, pneumothorax. Degree of mild reticular opacity bilaterally is similar. Impression: 1. No acute radiographic abnormality is identified. Electronically signed by: Tru Joshi MD (04/30/2019 10:17 AM) [facility]
[2019-04-30 10:23] LABS: CALCIUM 9.9 mg/dL (8.5-10.1); GFR 56.6; POTASSIUM 4.5 mmol/L (3.5-5.1)
[2019-04-30 10:29] LABS: ALBUMIN 3.5 g/dL (3.4-5.0); ALBUMIN/GLOBULIN RATIO 1.1 (1.0-1.7); TOTAL BILIRUBIN 1.1 mg/dL (0.2-1.0); TOTAL PROTEIN 6.7 g/dL (6.4-8.2)
[2019-04-30 10:47] LABS: % BANDS 9 % (0-9); % BASOS 1 % (0-3); % LYMPHS 6 % (24-48); % MONOS 3 % (0-10); % SEGS 81 % (35-66)
[2019-04-30 10:48] LABS: PLT ESTIMATE ADEQUATE (ADEQUATE)
[2019-04-30] MEDS ORDERED: IOHEXOL 350 MG/ML 100 ML VIAL. ONE (10:57)
[2019-04-30] MEDS ORDERED: HYDROcodone/APAP 5/325MG 1 TAB TABLET PO ONE (11:00)
[2019-04-30] MEDS ORDERED: CONTRAST GIVEN. MC PRN (11:00)
[2019-04-30] MEDS ORDERED: cefTRIAXone IV Push 1 GM VIAL. IVP ONE (11:00)
[2019-04-30] MEDS ORDERED: IOHEXOL 350 MG/ML 100 ML VIAL. IV ONE (11:15)
--- NOTE | 2019-04-30 11:25 | RAD ---
CT ANGIOGRAPHY CHEST INDICATION: Hypoxia, elevated d-dimer. Comparison: 08/01/2017. TECHNIQUE: Following the uneventful administration of intravenous contrast, 90 cc Isovue-370, axial CT sections were obtained through the lungs and upper abdomen. Multiplanar reconstructions and MIP images were obtained. PQRS compliance statement: One or more of the following individualized dose reduction techniques were utilized for this examination: 1. Automated exposure control 2. Adjustment of the mA and/or kV according to patient size 3. Use of iterative reconstruction technique FINDINGS: Pulmonary vasculature: No evidence of pulmonary thrombolic disease. Lungs and Airways: No pulmonary mass or consolidation. Bibasilar dependent and subsegmental atelectasis. No abnormality of the central airways. Pleura: The pleural spaces are normal. Heart and Mediastinum: The visualized thyroid is normal in size and attenuation. No axillary or supraclavicular lymphadenopathy. No mediastinal, hilar or retrocrural lymphadenopathy. The heart and pericardium are within normal limits. The great vessels of the thorax are normal. Abdomen: Cholecystectomy. Bones and Soft Tissues: Degenerative changes of the spine. IMPRESSION: 1. No evidence of pulmonary thromboembolic disease. 2. No pulmonary mass or consolidation Electronically signed by: Tru Child MD (04/30/2019 11:22 AM) [facility]
--- NOTE | 2019-04-30 11:37 | PDOC1 ---
History and Physical Date of Admission Date of Admission DATE: 04/30/19 TIME: 11:34 Identification/Chief Complaint Chief Complaint Shortness of breath Source Source: Patient History of Present Illness History of Present Illness Ms Ng is a 58yo F w/ PMHx ELMER previously on CPAP, HTN, HLD, ELMER, migraines, TIA, anxiety, depression, OA, fibromyalgia, hypothyroidism who presented to ED c/o shortness of breath with cough and chest pain. She had O2 saturations less than 88% on room air and has not been on home O2 previously. Patient denies any nausea, vomiting, abdominal pain. She states the symptoms have worsened over the last couple days. She states she was here in March for similar type symptoms with movement of the hospital and subsequently discharged. Nothing makes her symptoms worse, nothing makes her symptoms better. She also c/o LE edema. BNP was checked, was 30. She had negative CXR, positive d dimer and underwent a CTPA showing no evidence of pulmonary thromboembolic disease. Initial EKG reveals sinus tachycardia, heart rate 116, no evidence of acute ST or T wave change, negative troponin. She was admitted 03/26/19 w/ chest pain. She underwent cardiac cath on 03/27 that was negative for occlusive disease and an EGD that showed mild reflux. Has been seen multiple times previously for non-cardiac chest pain. Found with abnormal LFTs worse than prior admit with AST, ALT, and alk phos in the 300s. Past Medical History Cardiovascular: HTN, Hyperlipidemia Pulmonary: No pertinent hx CENTRAL NERVOUS SYSTEM: TIA GI: Diverticulosis, Hemorrhoids, Peptic Ulcer disease Heme/Onc: No pertinent hx Hepatobiliary: No pertinent hx Psych: Anxiety Musculoskeletal: Osteoarthritis Rheumatologic: Fibromyalgia Infectious disease: No pertinent hx Endocrine: Hypothyroidism Past Surgical History Past Surgical History: Appendectomy, Cholecystectomy, Total knee replacement, Tonsillectomy, Hysterectomy Family History Family History: Heart Disease, Hypertension Social History Smoke: No ALCOHOL: none Drugs: None Current Problem List Problem List Problems Medical Problems: (1) SOB (shortness of breath) Status: Acute Current Medications Current Medications Current Medications Albuterol/ Ipratropium (Duoneb) 3 ml 1X ONCE NEB Last administered on 04/30/19at 09:53; Start 04/30/19 at 09:45; Stop 04/30/19 at 09:46; Status DC Sodium Chloride 1,000 ml @ 1,000 mls/hr 1X ONCE IV Last administered on 04/30/19at 09:58; Start 04/30/19 at 10:00; Stop 04/30/19 at 10:59; Status DC Acetaminophen/ Hydrocodone Bitart (Lortab 5/325) 1 tab 1X ONCE PO Last administered on 04/30/19at 10:59; Start 04/30/19 at 11:00; Stop 04/30/19 at 11:01; Status DC Ceftriaxone Sodium (Rocephin) 1 gm 1X ONCE IVP Last administered on 04/30/19at 11:20; Start 04/30/19 at 11:00; Stop 04/30/19 at 11:01; Status DC Iohexol (Omnipaque 350 Mg/ml) 90 ml 1X ONCE IV Last administered on 04/30/19at 11:03; Start 04/30/19 at 11:15; Stop 04/30/19 at 11:16; Status DC Info (CONTRAST GIVEN -- Rx MONITORING) 1 each PRN DAILY PRN MC SEE COMMENTS; Start 04/30/19 at 11:00; Stop 05/02/19 at 10:59 Iohexol (Omnipaque 350 Mg/ml) 100 ml STK-MED ONCE .ROUTE ; Start 04/30/19 at 10:57; Stop 04/30/19 at 10:57; Status DC Active Scripts Active Proventil Hfa (Albuterol Sulfate) 6.7 Gm Hfa.aer.ad 2 Puff IH Q4-6HRS PRN MDD 6 puff 7 Days Reported Hydrocodone-Apap 5-325 (Hydrocodone Bit/Acetaminophen) 1 Tab Tablet 1 Tab PO PRN Q4HRS PRN Aspirin 325 Mg Tablet 1 Tab PO DAILY LAST DOSE GIVEN: DATE:04/15/17 TIME:9:00 a.m. Omeprazole 20 Mg Capsule.dr 1 Cap PO DAILY LAST DOSE GIVEN: DATE:04/15/17 TIME:9:00 a.m. Fluticasone Propionate Nasal [place] (Fluticasone Propionate) 16 Gm [place].susp 2 [place] NS DAILY LAST DOSE GIVEN: DATE:04/15/17 TIME:9:00 a.m. Losartan Potassium 100 Mg Tablet 100 Mg PO HS [Xysol] 1 Tab PO HS [Slow Mag] 325 238 Mg PO HS Trazodone Hcl 50 Mg Tablet 50 Mg PO DAILY PRN Cyclobenzaprine Hcl 10 Mg Tablet 1 Tab PO TID LAST DOSE GIVEN: DATE:04/15/17 TIME:2:00 p.m. Niaspan (Niacin) 500 Mg Tab.er.24h 500 Mg PO HS Fish Oil ([place]-3 Fatty Acids) 500 Mg Capsule.dr 1,400 Mg PO Fluoxetine Hcl 20 Mg Tablet 40 Mg PO DAILY LAST DOSE GIVEN: DATE:04/15/17 TIME: 9:00 a.m. Zolpidem Tartrate 10 Mg Tablet 10 Mg PO PRN QHS PRN Levothyroxine Sodium 125 Mcg Tablet 125 Mcg PO DAILY LAST DOSE GIVEN: DATE:04/15/17 TIME:7:30 a.m. Alprazolam 1 Mg Tablet 1 Mg PO DAILY PRN Meds not given this hospital admission. May resume home medications as approved by Physician. Allergies Allergies: Coded Allergies: prochlorperazine (Verified Adverse Reaction, Severe, 04/30/19) SKIN CRAWLING Fyhdbko-Jlc-Jvi Reductase Inhibitor (Verified Adverse Reaction, Intermediate, INCREASED LIVER ENZYMES, 03/29/19) ROS General: YES: Fatigue, Malaise; No: Chills, Night Sweats, Appetite, Other PSYCHOLOGICAL ROS: YES: Anxiety, Depression; No: Behavioral Disorder, Concentration difficultie, Decreased libido, Disorientation, Hallucinations, Hostility, Irritablity, Memory difficulties, Mood Swings, Obsessive thoughts, Physical abuse, Sexual abuse, Sleep disturbances, Suicidal ideation, Other Eyes: No Blurry vision, No Decreased vision, No Double vision, No Dry eyes, No Excessive tearing, No Eye Pain, No Itchy Eyes, No Loss of vision, No Photophobia, No Scotomata, No Uses contacts, No Uses glasses, No Other HEENT: YES: Nasal congestion; No: Heacaches, Visual Changes, Hearing change, Nasal discharge, Oral lesions, Sinus pain, Sore Throat, Epistaxis, Sneezing, Snoring, Tinnitus, Vertigo, Vocal changes, Other ALLERGY AND IMMUNOLOGY: No: Hives, Insect Bite Sensitivity, Itchy/Watery Eyes, Nasal Congestion, Post Nasal Drip, Seasonal Allergies, Other Hematological and Lymphatic: No: Bleeding Problems, Blood Clots, Blood Transfusions, Brusing, Night Sweats, Pallor, Swollen Lymph Nodes, Other ENDOCRINE: No: Breast Changes, Galactorrhea, Hair Pattern Changes, Hot Flashes, Malaise/lethargy, Mood Swings, Palpitations, Polydipsia/polyuria, Skin Changes, Temperature Intolerance, Unexpected Weight Changes, Other Breast: No New/Changing Breast Lumps, No Nipple changes, No Nipple discharge, No Other Respiratory: YES: Cough, Shortness of breath, SOB with excertion, Tachypnea, Wheezing; No: Hemoptysis, Orthopnea, Pleuritic Pain, Sputum Changes, Stridor, Other Cardiovascular: yes Chest Pain; No Palpitations, No Orthopnea, No Paroxysmal Noc. Dyspnea, No Edema, No Lt Headedness, No Other Gastrointestinal: Yes Nausea; No Vomiting, No Abdominal Pain, No Diarrhea, No Constipation, No Melena, No Hematochezia, No Other Genitourinary: No Dysuria, No Frequency, No Incontinence, No Hematuria, No Retention, No Discharge, No Urgency, No Pain, No Flank Pain, No Other, No , No , No , No , No , No , No Musculoskeletal: No Gait Disturbance, No Joint Pain, No Joint Stiffness, No Joint Swelling, No Muscle Pain, No Muscular Weakness, No Pain In:, No Swelling In:, No Other Neurological: No Behavorial Changes, No Bowel/Bladder ControlChng, No Confusion, No Dizziness, No Gait Disturbance, No Headaches, No Impaired Coord/balance, No Memory Loss, No Numbness/Tingling, No Seizures, No Speech Problems, No Tremors, No Visual Changes, No Weakness, No Other Skin: No Dry Skin, No Eczema, No Hair Changes, No Lumps, No Mole Changes, No Mottling, No Nail Changes, No Pruritus, No Rash, No Skin Lesion Changes, No Other, No Acne Physical Exam General: Alert, Oriented X3, Cooperative, No acute distress HEENT: Atraumatic, PERRLA, EOMI, Mucous membr. moist/pink Lungs: Other (Scattered wheezing) Heart: S1S2, RRR, no gallops, no murmurs Abdomen: Normal bowel sounds, Soft, No tenderness, No hepatosplenomegaly, No masses Rectal Exam: not examined Extremities: No clubbing, No cyanosis, No edema, Normal pulses, No tenderness/swelling Skin: No rashes, No breakdown, No significant lesion Neuro: Normal gait, Normal speech, Strength at 5/5 X4 ext, Normal tone, Sensation intact, Cranial nerves 3-12 NL, Reflexes 2+ Psych/Mental Status: Mental status NL, Mood NL Vitals Vitals Vital Signs Date Time Temp Pulse Resp B/P (MAP) Pulse Ox O2 Delivery O2 Flow Rate FiO2 04/30/19 10:59 20 93 Room Air 04/30/19 10:20 118 174/78 (110) 04/30/19 09:24 100.2 100.2 Labs Labs Laboratory Tests Test 04/30/19 09:25 04/30/19 09:50 Urine Collection Type Unknown Urine Color Yellow Urine Clarity Clear Urine pH 6.0 Urine Specific [place] <=1.005 Urine Protein Negative mg/dL (NEG-TRACE) Urine Glucose (UA) Negative mg/dL (NEG) Urine Ketones (Stick) Negative mg/dL (NEG) Urine Blood Negative (NEG) Urine Nitrite Negative (NEG) Urine Bilirubin Negative (NEG) Urine Urobilinogen Dipstick 1.0 mg/dL (0.2 mg/dL) Urine Leukocyte Esterase Negative (NEG) Urine RBC Occ /HPF (0-2) Urine WBC Occ /HPF (0-4) Urine Squamous Epithelial Cells Mod /LPF Urine Bacteria Few /HPF (0-FEW) White Blood Count 8.2 x10^3/uL (4.0-11.0) Red Blood Count 4.75 x10^6/uL (3.50-5.40) Hemoglobin 13.5 g/dL (12.0-15.5) Hematocrit 40.1 % (36.0-47.0) Mean Corpuscular Volume 85 fL (79-100) Mean Corpuscular Hemoglobin 28 pg (25-35) Mean Corpuscular Hemoglobin Concent 34 g/dL (31-37) Red Cell Distribution Width 13.2 % (11.5-14.5) Platelet Count 196 x10^3/uL (140-400) Neutrophils (%) (Auto) 90 % (31-73) Lymphocytes (%) (Auto) 6 % (24-48) Monocytes (%) (Auto) 2 % (0-9) Eosinophils (%) (Auto) 0 % (0-3) Basophils (%) (Auto) 0 % (0-3) Neutrophils # (Auto) 7.4 x10^3/uL (1.8-7.7) Lymphocytes # (Auto) 0.5 x10^3/uL (1.0-4.8) Monocytes # (Auto) 0.2 x10^3/uL (0.0-1.1) Eosinophils # (Auto) 0.0 x10^3/uL (0.0-0.7) Basophils # (Auto) 0.0 x10^3/uL (0.0-0.2) Segmented Neutrophils % 81 % (35-66) Band Neutrophils % 9 % (0-9) Lymphocytes % 6 % (24-48) Monocytes % 3 % (0-10) Basophils % 1 % (0-3) Platelet Estimate Adequate (ADEQUATE) D-Dimer (Kanika) 0.95 ug/mlFEU (0.00-0.50) Sodium Level 139 mmol/L (136-145) Potassium Level 4.5 mmol/L (3.5-5.1) Chloride Level 104 mmol/L (98-107) Carbon Dioxide Level 26 mmol/L (21-32) Anion Gap 9 (6-14) Blood Urea Nitrogen 8 mg/dL (7-20) Creatinine 1.0 mg/dL (0.6-1.0) Estimated GFR (Cockcroft-Gault) 56.6 BUN/Creatinine Ratio 8 (6-20) Glucose Level 118 mg/dL (70-99) Lactic Acid Level 2.3 mmol/L (0.4-2.0) Calcium Level 9.9 mg/dL (8.5-10.1) Total Bilirubin 1.1 mg/dL (0.2-1.0) Aspartate Amino Transf (AST/SGOT) 334 U/L (15-37) Alanine Aminotransferase (ALT/SGPT) 354 U/L (14-59) Alkaline Phosphatase 302 U/L (46-116) Troponin I Quantitative < 0.017 ng/mL (0.000-0.055) HC-Gmi-E-Type Natriuretic Peptide 30 pg/mL (0-124) Total Protein 6.7 g/dL (6.4-8.2) Albumin 3.5 g/dL (3.4-5.0) Albumin/Globulin Ratio 1.1 (1.0-1.7) Laboratory Tests Test 04/30/19 09:25 04/30/19 09:50 Urine Collection Type Unknown Urine Color Yellow Urine Clarity Clear Urine pH 6.0 Urine Specific [place] <=1.005 Urine Protein Negative mg/dL (NEG-TRACE) Urine Glucose (UA) Negative mg/dL (NEG) Urine Ketones (Stick) Negative mg/dL (NEG) Urine Blood Negative (NEG) Urine Nitrite Negative (NEG) Urine Bilirubin Negative (NEG) Urine Urobilinogen Dipstick 1.0 mg/dL (0.2 mg/dL) Urine Leukocyte Esterase Negative (NEG) Urine RBC Occ /HPF (0-2) Urine WBC Occ /HPF (0-4) Urine Squamous Epithelial Cells Mod /LPF Urine Bacteria Few /HPF (0-FEW) White Blood Count 8.2 x10^3/uL (4.0-11.0) Red Blood Count 4.75 x10^6/uL (3.50-5.40) Hemoglobin 13.5 g/dL (12.0-15.5) Hematocrit 40.1 % (36.0-47.0) Mean Corpuscular Volume 85 fL (79-100) Mean Corpuscular Hemoglobin 28 pg (25-35) Mean Corpuscular Hemoglobin Concent 34 g/dL (31-37) Red Cell Distribution Width 13.2 % (11.5-14.5) Platelet Count 196 x10^3/uL (140-400) Neutrophils (%) (Auto) 90 % (31-73) Lymphocytes (%) (Auto) 6 % (24-48) Monocytes (%) (Auto) 2 % (0-9) Eosinophils (%) (Auto) 0 % (0-3) Basophils (%) (Auto) 0 % (0-3) Neutrophils # (Auto) 7.4 x10^3/uL (1.8-7.7) Lymphocytes # (Auto) 0.5 x10^3/uL (1.0-4.8) Monocytes # (Auto) 0.2 x10^3/uL (0.0-1.1) Eosinophils # (Auto) 0.0 x10^3/uL (0.0-0.7) Basophils # (Auto) 0.0 x10^3/uL (0.0-0.2) Segmented Neutrophils % 81 % (35-66) Band Neutrophils % 9 % (0-9) Lymphocytes % 6 % (24-48) Monocytes % 3 % (0-10) Basophils % 1 % (0-3) Platelet Estimate Adequate (ADEQUATE) D-Dimer (Kanika) 0.95 ug/mlFEU (0.00-0.50) Sodium Level 139 mmol/L (136-145) Potassium Level 4.5 mmol/L (3.5-5.1) Chloride Level 104 mmol/L (98-107) Carbon Dioxide Level 26 mmol/L (21-32) Anion Gap 9 (6-14) Blood Urea Nitrogen 8 mg/dL (7-20) Creatinine 1.0 mg/dL (0.6-1.0) Estimated GFR (Cockcroft-Gault) 56.6 BUN/Creatinine Ratio 8 (6-20) Glucose Level 118 mg/dL (70-99) Lactic Acid Level 2.3 mmol/L (0.4-2.0) Calcium Level 9.9 mg/dL (8.5-10.1) Total Bilirubin 1.1 mg/dL (0.2-1.0) Aspartate Amino Transf (AST/SGOT) 334 U/L (15-37) Alanine Aminotransferase (ALT/SGPT) 354 U/L (14-59) Alkaline Phosphatase 302 U/L (46-116) Troponin I Quantitative < 0.017 ng/mL (0.000-0.055) DC-Lfb-L-Type Natriuretic Peptide 30 pg/mL (0-124) Total Protein 6.7 g/dL (6.4-8.2) Albumin 3.5 g/dL (3.4-5.0) Albumin/Globulin Ratio 1.1 (1.0-1.7) Images Images CXR - bilateral reticular opacities CTPA - 1. No evidence of pulmonary thromboembolic disease. 2. No pulmonary mass or consolidation VTE Prophylaxis Ordered VTE Prophylaxis Devices: Yes VTE Pharmacological Prophylaxi: Yes Assessment/Plan Assessment/Plan A/P: Chest pain - sounds pleuritic, has had recent negative cath on 03/27. Only related to her coughing. Will trend troponins, telemetry Cough - with shortness of breath. Has been treated for reflux and had negative CTPA. Will cont reflux treatment. No significant wheezing, she had her lisinopril changed last hospital stay. She did not develop problems until she stopped using CPAP 6 months ago. Acute hypoxia - unclear etiology, could be bronchitis, will treat as such. Consult pulm. Wean O2 as tolerated. Transaminitis - will consult GI, had negative hepatitis panel. I will discuss with pulm and GI she may need alpha-1 AT testing ELMER previously on CPAP - may need repeat study. States she did a home study and had her CPAP taken away HTN - in urgency currently, will restart her home meds. Prn hydralazine HLD - cont statin Migraines with h/o TIA - monitor Anxiety with depression - cont home medications Hypothyroidism - will cont home med FEN - General diet PPX - lovenox FULL CODE Dispo - telemetry for chest pain with acute hypoxia RUTH PAINTER MD Apr 30, 2019 11:36
[2019-04-30 12:28] LABS: BARBITURATES NEG (NEG); BENZODIAZEPINES POS (NEG); CANNABINOIDS NEG (NEG); COCAINE NEG (NEG); METHADONE NEG (NEG); OPIATES POS (NEG); PHENCYCLIDINE NEG (NEG)
[2019-04-30 12:29] LABS: AMPHETAMINE/METHAMPHETAMINE NEG (NEG)
--- NOTE | 2019-04-30 12:57 | EKG ---
[facility] [address] [place] [address] Test Date: 2019-04-30 Test Time: 09:22:17 Pat Name: LULU WEINBERG Department: Room: 102 1 Gender: F Extension Work Director: : 1960 Requested By: BRITTANY CELAYA Order Number: [id number] Reading MD: Prince Pagan MD Measurements Intervals [place] Rate: 115 P: 26 AL: 148 QRS: 7 QRSD: 82 T: 32 QT: 362 QTc: 509 Interpretive Statements SINUS TACHYCARDIA Electronically Signed On 05-07-2019 9:36:30 CDT by Prince Pagan MD
[2019-04-30 13:00] VITALS: BP 117/71
[2019-04-30 13:30] VITALS: BP 141/56
[2019-04-30 13:45] VITALS: BP 144/48
[2019-04-30 14:00] VITALS: BP 148/63
[2019-04-30] MEDS ORDERED: LABETALOL 20 MG/4 ML DISP.SYRIN. IVP PRN (14:00)
[2019-04-30] MEDS ORDERED: NON FORMULARY ITEM (Albuterol Sulfate (Proventil Hfa) 2 PUFF) IH PRN (14:00)
[2019-04-30] MEDS ORDERED: traZODone 50 MG TABLET. PO PRN (14:00)
[2019-04-30] MEDS ORDERED: CYCLOBENZAPRINE 10 MG TABLET. PO SCH (14:00)
[2019-04-30] MEDS ORDERED: ALPRAZolam 1 MG TABLET PO PRN (14:00)
[2019-04-30] MEDS ORDERED: ALBUTEROL SULFATE 2.5 MG/3 ML NEBU. NEB PRN (14:15)
[2019-04-30] MEDS ORDERED: CYCLOBENZAPRINE 10 MG TABLET. PO PRN (15:00)
[2019-04-30] MEDS ORDERED: guaiFENesin DM 200MG/20MG 10 ML SYRUP PO PRN (15:45)
[2019-04-30 16:00] VITALS: BP 99/45
[2019-04-30] MEDS ORDERED: FLU VAX QS 2019-20 (36MOS+)/PF 0.5 ML SYRINGE. VAX IM ONE (16:00)
[2019-04-30] MEDS ORDERED: PANTOPRAZOLE IV PUSH 40 MG VIAL. IVP ONE (16:15)
--- NOTE | 2019-04-30 17:09 | PDOC2 ---
GI CONSULT Reason For Consult: Transaminitis HPI: HPI: 58 y/o female who we have seen in the past. Was evaluated in ER today for SOA and cough, noted w/ hypoxia, admitted to ICU. Asked to see re: abnormal liver labs including bili 1.1, AST 334, ALT 354, Alk Phos 302. Has h/o elevated LFTs, negative viral hepatitis panel in 2017, +AMA last month, and fatty liver on past imaging (US in 2017). H/o GERD on omeprazole QD 30 min before breakfast. Has chronic chest pain. No n/v, abd pain, diarrhea, constipation, hematochezia, melena, change in appetite, or weight loss. From past encounters, occasional dysphagia after teeth were pulled and occasional constipation improved w/ acidophilus, yogurt, and Colace PRN. H/o IBS. EGD by Dr. Payne for atypical chest pain in 03/2019 showed mild reflux esophagitis, normal stomach, and normal duodenum. EGD and colonoscopy in [address] Vick: low-grade reflux and pre-pyloric ulcer (biopsy negative for H. pylori and c/w NSAID effect), diverticulosis, and hemorrhoids. Had adenomatous polyp in 2008. S/p cholecystectomy (for "gravel"). No pancreas history. Takes ASA 81mg and Lortab QID for chronic knee pain. PMH: PMH: HTN, HLD, ELMER (no CPAP for awhile), TIA, anxiety, depression, OA, fibromyalgia, hypothyroidism, GERD, diverticulosis, hemorrhoids, fatty liver appendectomy, cholecystectomy, , tubal ligation, tonsillectomy, hysterectomy, joint replacements/debridement, cardiac cath FH: Family History: CAD, CVA, Hypertension Social History: Smoke: Quit ALCOHOL: none Drugs: None ROS: GEN: Denies fevers, chills, sweats HEENT: Denies blurred vision, sore throat CV: +chest pain RESP: +shortness of air +cough GI: Per HPI : Denies hematuria, dysuria ENDO: +weight gain NEURO: Denies confusion, dizziness MSK: +chronic pain SKIN: Denies jaundice, pruritus Vitals: Vitals: Vital Signs Date Time Temp Pulse Resp B/P (MAP) Pulse Ox O2 Delivery O2 Flow Rate FiO2 04/30/19 16:00 98.5 112 16 99/45 (63) 95 Nasal Cannula 2.0 98.5 Labs: Labs: Laboratory Tests Test 04/30/19 09:25 04/30/19 09:50 04/30/19 13:15 Urine Collection Type Unknown Urine Color Yellow Urine Clarity Clear Urine pH 6.0 Urine Specific [place] <=1.005 Urine Protein Negative mg/dL (NEG-TRACE) Urine Glucose (UA) Negative mg/dL (NEG) Urine Ketones (Stick) Negative mg/dL (NEG) Urine Blood Negative (NEG) Urine Nitrite Negative (NEG) Urine Bilirubin Negative (NEG) Urine Urobilinogen Dipstick 1.0 mg/dL (0.2 mg/dL) Urine Leukocyte Esterase Negative (NEG) Urine RBC Occ /HPF (0-2) Urine WBC Occ /HPF (0-4) Urine Squamous Epithelial Cells Mod /LPF Urine Bacteria Few /HPF (0-FEW) Urine Opiates Screen Pos (NEG) Urine Methadone Screen Neg (NEG) Urine Barbiturates Neg (NEG) Urine Phencyclidine Screen Neg (NEG) Urine Amphetamine/Methamphetamine Neg (NEG) Urine Benzodiazepines Screen Pos (NEG) Urine Cocaine Screen Neg (NEG) Urine Cannabinoids Screen Neg (NEG) Urine Ethyl Alcohol Neg (NEG) White Blood Count 8.2 x10^3/uL (4.0-11.0) Red Blood Count 4.75 x10^6/uL (3.50-5.40) Hemoglobin 13.5 g/dL (12.0-15.5) Hematocrit 40.1 % (36.0-47.0) Mean Corpuscular Volume 85 fL (79-100) Mean Corpuscular Hemoglobin 28 pg (25-35) Mean Corpuscular Hemoglobin Concent 34 g/dL (31-37) Red Cell Distribution Width 13.2 % (11.5-14.5) Platelet Count 196 x10^3/uL (140-400) Neutrophils (%) (Auto) 90 % (31-73) Lymphocytes (%) (Auto) 6 % (24-48) Monocytes (%) (Auto) 2 % (0-9) Eosinophils (%) (Auto) 0 % (0-3) Basophils (%) (Auto) 0 % (0-3) Neutrophils # (Auto) 7.4 x10^3/uL (1.8-7.7) Lymphocytes # (Auto) 0.5 x10^3/uL (1.0-4.8) Monocytes # (Auto) 0.2 x10^3/uL (0.0-1.1) Eosinophils # (Auto) 0.0 x10^3/uL (0.0-0.7) Basophils # (Auto) 0.0 x10^3/uL (0.0-0.2) Segmented Neutrophils % 81 % (35-66) Band Neutrophils % 9 % (0-9) Lymphocytes % 6 % (24-48) Monocytes % 3 % (0-10) Basophils % 1 % (0-3) Platelet Estimate Adequate (ADEQUATE) D-Dimer (Kanika) 0.95 ug/mlFEU (0.00-0.50) Sodium Level 139 mmol/L (136-145) Potassium Level 4.5 mmol/L (3.5-5.1) Chloride Level 104 mmol/L (98-107) Carbon Dioxide Level 26 mmol/L (21-32) Anion Gap 9 (6-14) Blood Urea Nitrogen 8 mg/dL (7-20) Creatinine 1.0 mg/dL (0.6-1.0) Estimated GFR (Cockcroft-Gault) 56.6 BUN/Creatinine Ratio 8 (6-20) Glucose Level 118 mg/dL (70-99) Lactic Acid Level 2.3 mmol/L (0.4-2.0) 1.3 mmol/L (0.4-2.0) Calcium Level 9.9 mg/dL (8.5-10.1) Total Bilirubin 1.1 mg/dL (0.2-1.0) Aspartate Amino Transf (AST/SGOT) 334 U/L (15-37) Alanine Aminotransferase (ALT/SGPT) 354 U/L (14-59) Alkaline Phosphatase 302 U/L (46-116) Troponin I Quantitative < 0.017 ng/mL (0.000-0.055) AR-Wyr-X-Type Natriuretic Peptide 30 pg/mL (0-124) Total Protein 6.7 g/dL (6.4-8.2) Albumin 3.5 g/dL (3.4-5.0) Albumin/Globulin Ratio 1.1 (1.0-1.7) Allergies: Coded Allergies: prochlorperazine (Verified Adverse Reaction, Severe, 04/30/19) SKIN CRAWLING Dsucfzw-Zhy-Xbv Reductase Inhibitor (Verified Adverse Reaction, Intermediate, INCREASED LIVER ENZYMES, 03/29/19) Medications: Current Medications Medications (Trade) Dose Ordered Sig/Aretha Route PRN Reason Start Time Stop Time Status Last Admin Dose Admin Albuterol/ Ipratropium (Duoneb) 3 ml 1X ONCE NEB 04/30/19 09:45 04/30/19 09:46 DC 04/30/19 09:53 Sodium Chloride 1,000 ml @ 1,000 mls/hr 1X ONCE IV 04/30/19 10:00 04/30/19 10:59 DC 04/30/19 09:58 Acetaminophen/ Hydrocodone Bitart (Lortab 5/325) 1 tab 1X ONCE PO 04/30/19 11:00 04/30/19 11:01 DC 04/30/19 10:59 Ceftriaxone Sodium (Rocephin) 1 gm 1X ONCE IVP 04/30/19 11:00 04/30/19 11:01 DC 04/30/19 11:20 Iohexol (Omnipaque 350 Mg/ml) 90 ml 1X ONCE IV 04/30/19 11:15 04/30/19 11:16 DC 04/30/19 11:03 Influenza Virus Vaccine Quadrival (Afluria Quad 2019-20 (3yr Up) Syringe) 0.5 ml ONCE ONCE VAX IM 04/30/19 16:00 04/30/19 16:01 DC 04/30/19 16:12 Pantoprazole Sodium (PROTONIX VIAL for IV PUSH) 40 mg 1X ONCE IVP 04/30/19 16:15 04/30/19 16:16 DC 04/30/19 16:10 Imaging: Imaging: CXR 04/30 Impression: 1. No acute radiographic abnormality is identified. Chest CTA 04/30 IMPRESSION: 1. No evidence of pulmonary thromboembolic disease. 2. No pulmonary mass or consolidation PE: GEN: obese - NAD in chair HEENT: Atraumatic, PERRL LUNGS: clear anteriorly, dry cough, NC 2L HEART: tachycardic ABD: NABS, soft, RUQ tap tenderness EXTREMITY: No edema SKIN: No rashes, no jaundice NEURO/PSYCH: A & O 3 A/P: A/P: SOA, cough, h/o ELMER Abnormal LFTs - h/o same though worse this time, viral hepatitis neg 2016, +AMA 2018 Fatty liver GERD - on PPI, mild reflux on EGD last month CRC screen, h/o adenomatous polyp - UTD (no polyps in 2014) Diverticulosis, hemorrhoids IBS S/p cholecystectomy Chronic pain, obesity -- LFTs worse this time - possibly related to hypoxia/congestion - follow labs. +AMA - ?PBC Continue PPI - has lansoprazole ordered. AYANA CUEVAS Apr 30, 2019 17:09
[2019-04-30] MEDS: HYDROcodone/APAP 5/325MG 1 TAB TABLET PO PRN (17:32)
[2019-04-30 20:00] VITALS: BP 141/70
[2019-04-30] MEDS: LOSARTAN POTASSIUM 50 MG TABLET. PO SCH (21:17)
[2019-04-30] MEDS: MAGNESIUM CHLORIDE ER 64 MG TABLET.ER PO SCH (21:18)
[2019-04-30] MEDS: NIACIN ER 500 MG TABLET.ER PO SCH (21:18)
[2019-04-30] MEDS: CETIRIZINE HCL 10 MG TABLET. PO SCH (21:18)
[2019-04-30] MEDS: ENOXAPARIN 40 MG/0.4 ML SYRINGE. SQ SCH (21:18)
[2019-04-30] MEDS: ZOLPIDEM 5 MG TABLET. PO PRN (21:22)
[2019-05-01] VITALS (8 sets, daily range): BP systolic 96–171; BP diastolic 39–87
[2019-05-01] MEDS: LEVOTHYROXINE 125 MCG TABLET PO SCH (05:50)
[2019-05-01] MEDS: HYDROcodone/APAP 5/325MG 1 TAB TABLET PO PRN (05:51)
[2019-05-01] MEDS: LANSOPRAZOLE 30 MG TAB.RAP.DR FT SCH (08:25)
[2019-05-01] MEDS: ASPIRIN 325 MG TABLET PO SCH (08:26)
[2019-05-01] MEDS: FLUoxetine HCL 20 MG CAPSULE PO SCH (08:26)
[2019-05-01] MEDS ORDERED: FLUTICASONE 50MCG/NASAL SPRAY 16GM BOTTLE. NS SCH (09:00)
--- NOTE | 2019-05-01 09:02 | PDOC ---
PULMONARY PROGRESS NOTES Vitals Vital Signs Date Time Temp Pulse Resp B/P (MAP) Pulse Ox O2 Delivery O2 Flow Rate FiO2 05/01/19 08:00 97.5 82 16 129/60 (83) 96 Room Air 97.5 05/01/19 05:51 2.0 General: Alert, No acute distress Lungs: Clear, Other Cardiovascular: S1 Abdomen: Soft, Non-tender Extremities: Other Labs Laboratory Tests Test 04/30/19 09:25 04/30/19 09:50 04/30/19 13:15 04/30/19 17:27 Urine Collection Type Unknown Urine Color Yellow Urine Clarity Clear Urine pH 6.0 Urine Specific [place] <=1.005 Urine Protein Negative mg/dL (NEG-TRACE) Urine Glucose (UA) Negative mg/dL (NEG) Urine Ketones (Stick) Negative mg/dL (NEG) Urine Blood Negative (NEG) Urine Nitrite Negative (NEG) Urine Bilirubin Negative (NEG) Urine Urobilinogen Dipstick 1.0 mg/dL (0.2 mg/dL) Urine Leukocyte Esterase Negative (NEG) Urine RBC Occ /HPF (0-2) Urine WBC Occ /HPF (0-4) Urine Squamous Epithelial Cells Mod /LPF Urine Bacteria Few /HPF (0-FEW) Urine Opiates Screen Pos (NEG) Urine Methadone Screen Neg (NEG) Urine Barbiturates Neg (NEG) Urine Phencyclidine Screen Neg (NEG) Urine Amphetamine/Methamphetamine Neg (NEG) Urine Benzodiazepines Screen Pos (NEG) Urine Cocaine Screen Neg (NEG) Urine Cannabinoids Screen Neg (NEG) Urine Ethyl Alcohol Neg (NEG) White Blood Count 8.2 x10^3/uL (4.0-11.0) Red Blood Count 4.75 x10^6/uL (3.50-5.40) Hemoglobin 13.5 g/dL (12.0-15.5) Hematocrit 40.1 % (36.0-47.0) Mean Corpuscular Volume 85 fL (79-100) Mean Corpuscular Hemoglobin 28 pg (25-35) Mean Corpuscular Hemoglobin Concent 34 g/dL (31-37) Red Cell Distribution Width 13.2 % (11.5-14.5) Platelet Count 196 x10^3/uL (140-400) Neutrophils (%) (Auto) 90 % (31-73) Lymphocytes (%) (Auto) 6 % (24-48) Monocytes (%) (Auto) 2 % (0-9) Eosinophils (%) (Auto) 0 % (0-3) Basophils (%) (Auto) 0 % (0-3) Neutrophils # (Auto) 7.4 x10^3/uL (1.8-7.7) Lymphocytes # (Auto) 0.5 x10^3/uL (1.0-4.8) Monocytes # (Auto) 0.2 x10^3/uL (0.0-1.1) Eosinophils # (Auto) 0.0 x10^3/uL (0.0-0.7) Basophils # (Auto) 0.0 x10^3/uL (0.0-0.2) Segmented Neutrophils % 81 % (35-66) Band Neutrophils % 9 % (0-9) Lymphocytes % 6 % (24-48) Monocytes % 3 % (0-10) Basophils % 1 % (0-3) Platelet Estimate Adequate (ADEQUATE) D-Dimer (Kanika) 0.95 ug/mlFEU (0.00-0.50) Sodium Level 139 mmol/L (136-145) Potassium Level 4.5 mmol/L (3.5-5.1) Chloride Level 104 mmol/L (98-107) Carbon Dioxide Level 26 mmol/L (21-32) Anion Gap 9 (6-14) Blood Urea Nitrogen 8 mg/dL (7-20) Creatinine 1.0 mg/dL (0.6-1.0) Estimated GFR (Cockcroft-Gault) 56.6 BUN/Creatinine Ratio 8 (6-20) Glucose Level 118 mg/dL (70-99) Lactic Acid Level 2.3 mmol/L (0.4-2.0) 1.3 mmol/L (0.4-2.0) Calcium Level 9.9 mg/dL (8.5-10.1) Total Bilirubin 1.1 mg/dL (0.2-1.0) Aspartate Amino Transf (AST/SGOT) 334 U/L (15-37) Alanine Aminotransferase (ALT/SGPT) 354 U/L (14-59) Alkaline Phosphatase 302 U/L (46-116) Troponin I Quantitative < 0.017 ng/mL (0.000-0.055) MI-Zfn-O-Type Natriuretic Peptide 30 pg/mL (0-124) Total Protein 6.7 g/dL (6.4-8.2) Albumin 3.5 g/dL (3.4-5.0) Albumin/Globulin Ratio 1.1 (1.0-1.7) Glucose (Fingerstick) 129 mg/dL (70-99) Laboratory Tests Test 04/30/19 09:25 04/30/19 09:50 04/30/19 13:15 04/30/19 17:27 Urine Collection Type Unknown Urine Color Yellow Urine Clarity Clear Urine pH 6.0 Urine Specific [place] <=1.005 Urine Protein Negative mg/dL (NEG-TRACE) Urine Glucose (UA) Negative mg/dL (NEG) Urine Ketones (Stick) Negative mg/dL (NEG) Urine Blood Negative (NEG) Urine Nitrite Negative (NEG) Urine Bilirubin Negative (NEG) Urine Urobilinogen Dipstick 1.0 mg/dL (0.2 mg/dL) Urine Leukocyte Esterase Negative (NEG) Urine RBC Occ /HPF (0-2) Urine WBC Occ /HPF (0-4) Urine Squamous Epithelial Cells Mod /LPF Urine Bacteria Few /HPF (0-FEW) Urine Opiates Screen Pos (NEG) Urine Methadone Screen Neg (NEG) Urine Barbiturates Neg (NEG) Urine Phencyclidine Screen Neg (NEG) Urine Amphetamine/Methamphetamine Neg (NEG) Urine Benzodiazepines Screen Pos (NEG) Urine Cocaine Screen Neg (NEG) Urine Cannabinoids Screen Neg (NEG) Urine Ethyl Alcohol Neg (NEG) White Blood Count 8.2 x10^3/uL (4.0-11.0) Red Blood Count 4.75 x10^6/uL (3.50-5.40) Hemoglobin 13.5 g/dL (12.0-15.5) Hematocrit 40.1 % (36.0-47.0) Mean Corpuscular Volume 85 fL (79-100) Mean Corpuscular Hemoglobin 28 pg (25-35) Mean Corpuscular Hemoglobin Concent 34 g/dL (31-37) Red Cell Distribution Width 13.2 % (11.5-14.5) Platelet Count 196 x10^3/uL (140-400) Neutrophils (%) (Auto) 90 % (31-73) Lymphocytes (%) (Auto) 6 % (24-48) Monocytes (%) (Auto) 2 % (0-9) Eosinophils (%) (Auto) 0 % (0-3) Basophils (%) (Auto) 0 % (0-3) Neutrophils # (Auto) 7.4 x10^3/uL (1.8-7.7) Lymphocytes # (Auto) 0.5 x10^3/uL (1.0-4.8) Monocytes # (Auto) 0.2 x10^3/uL (0.0-1.1) Eosinophils # (Auto) 0.0 x10^3/uL (0.0-0.7) Basophils # (Auto) 0.0 x10^3/uL (0.0-0.2) Segmented Neutrophils % 81 % (35-66) Band Neutrophils % 9 % (0-9) Lymphocytes % 6 % (24-48) Monocytes % 3 % (0-10) Basophils % 1 % (0-3) Platelet Estimate Adequate (ADEQUATE) D-Dimer (Kanika) 0.95 ug/mlFEU (0.00-0.50) Sodium Level 139 mmol/L (136-145) Potassium Level 4.5 mmol/L (3.5-5.1) Chloride Level 104 mmol/L (98-107) Carbon Dioxide Level 26 mmol/L (21-32) Anion Gap 9 (6-14) Blood Urea Nitrogen 8 mg/dL (7-20) Creatinine 1.0 mg/dL (0.6-1.0) Estimated GFR (Cockcroft-Gault) 56.6 BUN/Creatinine Ratio 8 (6-20) Glucose Level 118 mg/dL (70-99) Lactic Acid Level 2.3 mmol/L (0.4-2.0) 1.3 mmol/L (0.4-2.0) Calcium Level 9.9 mg/dL (8.5-10.1) Total Bilirubin 1.1 mg/dL (0.2-1.0) Aspartate Amino Transf (AST/SGOT) 334 U/L (15-37) Alanine Aminotransferase (ALT/SGPT) 354 U/L (14-59) Alkaline Phosphatase 302 U/L (46-116) Troponin I Quantitative < 0.017 ng/mL (0.000-0.055) OL-Aer-O-Type Natriuretic Peptide 30 pg/mL (0-124) Total Protein 6.7 g/dL (6.4-8.2) Albumin 3.5 g/dL (3.4-5.0) Albumin/Globulin Ratio 1.1 (1.0-1.7) Glucose (Fingerstick) 129 mg/dL (70-99) Medications Active Scripts Medications Dose Route/Sig Max Daily Dose Days Date Category Dose Instructions Hydrocodone-Apap 5-325 (Hydrocodone Bit/Acetaminophen) 1 Tab Tablet 1 Tab PO PRN Q4HRS PRN 03/27/19 Reported Proventil Hfa (Albuterol Sulfate) 6.7 Gm Hfa.aer.ad 2 Puff IH Q4-6HRS PRN MDD 6 puff 7 04/16/18 Rx Aspirin 325 Mg Tablet 1 Tab PO DAILY 04/15/17 Reported LAST DOSE GIVEN: DATE:04/15/17 TIME:9:00 a.m. Omeprazole 20 Mg Capsule.dr Dawson Cap PO DAILY 04/12/17 Reported LAST DOSE GIVEN: DATE:04/15/17 TIME:9:00 a.m. Fluticasone Propionate Nasal [place] (Fluticasone Propionate) 16 Gm [place].susp 2 [place] NS DAILY 04/12/17 Reported LAST DOSE GIVEN: DATE:04/15/17 TIME:9:00 a.m. Losartan Potassium 100 Mg Tablet 100 Mg PO HS 04/12/17 Reported [Xysol] 1 Tab PO HS 04/04/17 Reported [Slow Mag] 325 238 Mg PO HS 04/04/17 Reported Trazodone Hcl 50 Mg Tablet 50 Mg PO DAILY PRN 07/19/16 Reported Cyclobenzaprine Hcl 10 Mg Tablet 1 Tab PO TID 07/19/16 Reported LAST DOSE GIVEN: DATE:04/15/17 TIME:2:00 p.m. Niaspan (Niacin) 500 Mg Tab.er.24h 500 Mg PO HS 12/19/14 Reported Fish Oil ([place]-3 Fatty Acids) 500 Mg Capsule.dr Dawson,400 Mg PO 11/07/13 Reported Fluoxetine Hcl 20 Mg Tablet 40 Mg PO DAILY 11/07/13 Reported LAST DOSE GIVEN: DATE:04/15/17 TIME: 9:00 a.m. Zolpidem Tartrate 10 Mg Tablet 10 Mg PO PRN QHS PRN 11/07/13 Reported Levothyroxine Sodium 125 Mcg Tablet 125 Mcg PO DAILY 06/18/13 Reported LAST DOSE GIVEN: DATE:04/15/17 TIME:7:30 a.m. Alprazolam 1 Mg Tablet 1 Mg PO DAILY PRN 06/18/13 Reported Meds not given this hospital admission. May resume home medications as approved by Physician. Impression . FULL NOTE DICTATED COPD RX UPON D/C SPIRIVA DAILY OUT PT PT CARD/PULMONARY REHAB HYPOXEMIA NO PE OK TO TRANSFER OUT OF ICU D/C SOON LATER TODAY OK BY ME FOLLOW UP IN MY OFFICE IN BEN DURHAM MD May 01, 2019 09:02
--- NOTE | 2019-05-01 09:19 | PDOC ---
Subjective: Subjective: Breathing better. Waiting on breakfast. Stooled overnight. Objective: Vital Signs: Vital Signs Date Time Temp Pulse Resp B/P (MAP) Pulse Ox O2 Delivery O2 Flow Rate FiO2 05/01/19 08:00 97.5 82 16 129/60 (83) 96 Room Air 97.5 05/01/19 05:51 2.0 Labs: Laboratory Tests Test 04/30/19 17:27 Glucose (Fingerstick) 129 mg/dL (70-99) PE: GEN: NAD LUNGS: room air HEART: RRR ABD: obese, RUQ discomfort NEURO/PSYCH: A & O 3 A/P: SOA, cough, chronic chest pain Elevated LFTs, PBC -- Rechecking LFTs. Follow-up re: PBC, possible ursodiol. Continue PPI for GERD. DC per primary/pulm. AYANA CUEVAS May 01, 2019 09:19
--- NOTE | 2019-05-01 09:19 | CONS ---
DATE OF CONSULTATION: 05/01/2019 ATTENDING PHYSICIAN: Jamie Blanchard MD REASON FOR CONSULTATION: The patient seen in pulmonary consultation at the request of Dr. Blanchard for decreased saturation, increasing shortness of breath, dyspnea upon exertion. HISTORY OF PRESENT ILLNESS: The patient is a 58-year-old with multiple comorbidities, obstructive sleep apnea and previous CPAP, had a new study revealing no need for CPAP; hypertension; hyperlipidemia; TIA; anxiety; depression; tobacco dependent, quitting 10 years ago, presented with increasing shortness of breath. She was actually seen by her primary care doctor, Dr. Jamie Thorpe, who placed her on albuterol p.r.n. and taper dose of prednisone. The patient presented with increasing shortness of breath, cough, wheezing. She is currently in the intensive care unit. I was asked to see her in consultation. She had imaging studies including a CT angiogram, which revealed no evidence of pulmonary emboli. There was no consolidation or infiltrates. The patient denies any prior history of DVT or pulmonary embolism. She was hospitalized last month and underwent cardiac catheterization, which was negative for any occlusive disease. PAST MEDICAL HISTORY: 1. COPD, tobacco dependence, in remission, quit 10 years ago. 2. Hypertension. 3. Previous obstructive sleep apnea, had a new chest revealing no need for CPAP. 4. Morbid obesity, body mass index of 54. 5. Anxiety and depression. 6. Fibromyalgia. 7. Hypothyroidism. 8. Peptic ulcer disease. 9. Previous workup for coronary artery disease. She underwent cardiac catheterization on 03/27 revealing no occlusive disease. PAST SURGICAL HISTORY: Status post appendectomy, cholecystectomy, total knee replacement, tonsillectomy, hysterectomy. FAMILY HISTORY: Heart disease and hypertension. SOCIAL HISTORY: She has never smoked. REVIEW OF SYSTEMS: CONSTITUTIONAL: No fever or chills. EYES: No change in visual acuity. HEENT: No nasal congestion or sore throat. PULMONARY: As indicated above. CARDIOVASCULAR: As indicated above. GASTROINTESTINAL: No nausea, vomiting, diarrhea. GENITOURINARY: No dysuria or frequency. MUSCULOSKELETAL: No localized muscle aches or joint pains. SKIN: No new skin rashes. NEUROLOGIC: No headaches, diplopia or blurred vision. ALLERGIES: STATINS AND PROCHLORPERAZINE. CURRENT MEDICATIONS: List was reviewed. PHYSICAL EXAMINATION: GENERAL: Morbidly obese individual in no respiratory distress, 2 liters of oxygen supplementation. HEENT: Eyes, the sclerae were nonicteric. NECK: Jugular venous distention could not be assessed secondary to body habitus. CHEST: Full expansion. LUNGS: Adequate airway flow with no wheezes. CARDIOVASCULAR: Regular rate and rhythm with S1, S2, no S3. ABDOMEN: Obese, soft. EXTREMITIES: No clubbing, cyanosis. No pitting edema. NEUROLOGICAL: The patient was awake, alert, following commands. A detailed neuro exam was not performed. LABORATORY DATA: Reviewed. White count was normal. Hemoglobin and hematocrit were noted. D-dimer was elevated. Electrolytes were noted. BUN and creatinine were normal. Toxicology screen was positive for benzodiazepine. CT angiogram as indicated above. IMPRESSION: 1. Hypoxemia, suspect secondary to shunting from morbid obesity and chronic obstructive pulmonary disease. 2. Chronic obstructive pulmonary disease with mild acute exacerbation. 3. Chest pain with a negative cardiac catheterization in the past on 03/27, now negative CT angiogram for PE protocol. 4. Cough related to acute nonspecific bronchitis along with gastroesophageal reflux. 5. Elevated liver chemistries. 6. Obstructive sleep apnea. 7. Hypertension. 8. Morbid obesity. PLAN: 1. From a pulmonary standpoint of view, the patient will do well with p.r.n. albuterol, would add Spiriva upon discharge. 2. Evaluate for physical therapy. I suggest the patient undergo outpatient physical therapy. 3. Avoid processed foods. 4. Exercise regimen program. 5. Follow up in the office once discharged. I do appreciate the privilege in sharing in the patient's care. BEN WASHINGTON MD DR: MARY/millie JOB#: [id number] / [id number]
[2019-05-01 10:02] LABS: DIRECT BILIRUBIN 0.2 mg/dL (0.0-0.2); TOTAL BILIRUBIN 0.4 mg/dL (0.2-1.0); TOTAL PROTEIN 6.5 g/dL (6.4-8.2)
--- NOTE | 2019-05-01 10:25 | NUR ---
SS following for discharge planning. SS reviewed pt chart. Pt is from home with spouse and is currently on room air. SS will continue to follow for discharge planning.
[2019-05-01] MEDS: NYSTATIN TOPICAL POWDER 15GM BOTTLE. TP SCH ×2 (10:59→21:19)
--- NOTE | 2019-05-01 11:43 | PDOC ---
[facility] PROGRESS NOTE Chief Complaint Chief Complaint Shortness of breath History of Present Illness History of Present Illness 05/01/19 Pt seen and examined in ICU. Pt was sitting in chair and conversant, breathing on room air. Discussed with and nurse. Called and discussed pt with GI. They believe improvement in pulmonary congestion may help LFTs. Considering ursodiol. Vitals/I&O Vitals/I&O: Vital Signs Date Time Temp Pulse Resp B/P (MAP) Pulse Ox O2 Delivery O2 Flow Rate FiO2 05/01/19 08:00 97.5 82 16 129/60 (83) 96 Room Air 97.5 05/01/19 05:51 2.0 I & O 04/30/19 04/30/19 05/01/19 14:59 22:59 06:59 Intake Total 500 ml Output Total 0 ml Balance 500 ml Physical Exam General: Alert, Oriented X3, Cooperative, No acute distress Heart: Regular rate, No murmurs Lungs: Clear, Other (b/l wheezes) Abdomen: Normal bowel sounds, Soft, Other (Obese.) Extremities: No clubbing, No cyanosis Labs Labs: Laboratory Tests Test 04/30/19 13:15 04/30/19 17:27 05/01/19 09:35 Lactic Acid Level 1.3 mmol/L (0.4-2.0) Glucose (Fingerstick) 129 mg/dL (70-99) Total Bilirubin 0.4 mg/dL (0.2-1.0) Direct Bilirubin 0.2 mg/dL (0.0-0.2) Aspartate Amino Transf (AST/SGOT) 106 U/L (15-37) Alanine Aminotransferase (ALT/SGPT) 208 U/L (14-59) Alkaline Phosphatase 229 U/L (46-116) Total Protein 6.5 g/dL (6.4-8.2) Albumin 3.0 g/dL (3.4-5.0) Review of Systems Review of Systems: Chest pain Shortness of breath Assessment and Plan Assessmemt and Plan Problems Medical Problems: (1) Elevated LFTs Status: Acute (2) Hypoxia Status: Acute (3) Sepsis Status: Acute (4) SOB (shortness of breath) Status: Acute A/P: Shortness of breath Elevated LFTs: Pt was found to have elevated anti-mitochondrial antibodies (04/05). Called GI, they say acutely elevated liver enzymes more likely due to lung or R heart congestion than PBC GI considering ursodiol PT/OT DVT ppx Home meds, but hold PO steroids for now Labs, LFTs Full code Await pulmonology input Total time 32 min Comment Review of Relevant I have reviewed the following items radha (where applicable) has been applied. Medications: Current Medications Medications (Trade) Dose Ordered Sig/Aretha Route PRN Reason Start Time Stop Time Status Last Admin Dose Admin Aspirin (Evaristo Aspirin) 325 mg DAILY PO 05/01/19 09:00 05/01/19 08:26 Fluticasone Propionate (Flonase) 2 spray DAILY NS 05/01/19 09:00 05/01/19 08:26 Levothyroxine Sodium (Synthroid) 125 mcg DAILY07 PO 05/01/19 07:00 05/01/19 05:50 Fluoxetine HCl (PROzac) 40 mg DAILY PO 05/01/19 09:00 05/01/19 08:26 Losartan Potassium (Cozaar) 100 mg QHS PO 04/30/19 21:00 04/30/19 21:17 Acetaminophen/ Hydrocodone Bitart (Lortab 5/325) 1 tab PRN Q4HRS PRN PO PAIN 04/30/19 14:00 05/01/19 05:51 Niacin (Slo-Niacin) 500 mg HS PO 04/30/19 21:00 04/30/19 21:18 Lansoprazole (Prevacid) 30 mg DAILYAC FT 05/01/19 07:30 05/01/19 08:25 Zolpidem Tartrate (Ambien) 5 mg PRN QHS PRN PO INSOMNIA 04/30/19 14:15 04/30/19 21:22 Magnesium Chloride (Mag Delay) 64 mg QHS PO 04/30/19 21:00 04/30/19 21:18 Cetirizine HCl (ZyrTEC) 10 mg QHS PO 04/30/19 21:00 04/30/19 21:18 Albuterol Sulfate (Ventolin Neb Soln) 2.5 mg PRN Q4HRS PRN NEB SHORTNESS OF BREATH 04/30/19 14:15 05/01/19 02:34 Influenza Virus Vaccine Quadrival (Afluria Quad 2018- (3yr Up) Syringe) 0.5 ml ONCE ONCE VAX IM 04/30/19 16:00 04/30/19 16:01 DC 04/30/19 16:12 Pantoprazole Sodium (PROTONIX VIAL for IV PUSH) 40 mg 1X ONCE IVP 04/30/19 16:15 04/30/19 16:16 DC 04/30/19 16:10 Enoxaparin Sodium (Lovenox 40mg Syringe) 40 mg QHS SQ 04/30/19 21:00 04/30/19 21:18 Nystatin (Nystop) 1 ying BID TP 05/01/19 12:00 05/01/19 10:59 SOL BARRETT III DO May 01, 2019 11:43
[2019-05-01] MEDS ORDERED: traMADol 50 MG TABLET PO PRN (19:00)
[2019-05-01] MEDS ORDERED: SUMAtriptan SUCCINATE 100 MG TABLET PO PRN (19:00)
--- NOTE | 2019-05-01 19:10 | NUR ---
Code stroke note: Called to rm [id number] by nursing for onset slurred speech and rt arm weakness. Pt alert in chair and stated "I have a migraine and this always happens with that." Talked to on phone. When asked what his wifes migraine symptoms usually were, he stated" Do you know the signs of a stroke? She has slurred speech and rt hand is weak". He stated these will go away when we give her migraine home meds. Dr Blanchard returned call and orders rec'd for 2 of the home migraine meds. No order rec'd for CT head. NIH completed at 2. BS 96. VSS. Pt to remain on 5So. Report given to next charge nurse ICU for followup
[2019-05-01] MEDS: LOSARTAN POTASSIUM 50 MG TABLET. PO SCH (20:29)
[2019-05-01] MEDS: ENOXAPARIN 40 MG/0.4 ML SYRINGE. SQ SCH (20:29)
[2019-05-01] MEDS: ZOLPIDEM 5 MG TABLET. PO PRN (20:29)
[2019-05-01] MEDS: CETIRIZINE HCL 10 MG TABLET. PO SCH (20:29)
[2019-05-01] MEDS: MAGNESIUM CHLORIDE ER 64 MG TABLET.ER PO SCH (21:19)
[2019-05-01] MEDS: NIACIN ER 500 MG TABLET.ER PO SCH (21:19)
[2019-05-02 03:00] VITALS: BP 151/83
[2019-05-02] MEDS: HYDROcodone/APAP 5/325MG 1 TAB TABLET PO PRN (04:12)
[2019-05-02 07:00] VITALS: BP 155/65
[2019-05-02] MEDS: LEVOTHYROXINE 125 MCG TABLET PO SCH (08:42)
[2019-05-02] MEDS: FLUoxetine HCL 20 MG CAPSULE PO SCH (08:42)
[2019-05-02] MEDS: ASPIRIN 325 MG TABLET PO SCH (08:42)
[2019-05-02] MEDS: LANSOPRAZOLE 30 MG TAB.RAP.DR FT SCH (08:42)
[2019-05-02] MEDS: NYSTATIN TOPICAL POWDER 15GM BOTTLE. TP SCH (08:43)
--- NOTE | 2019-05-02 08:53 | PDOC ---
PROGRESS NOTES Chief Complaint Chief Complaint Shortness of breath A/P: Chest pain - sounds pleuritic, has had recent negative cath on 03/27. Only related to her coughing. Will trend troponins, telemetry Cough - with shortness of breath. Has been treated for reflux and had negative CTPA. Will cont reflux treatment. No significant wheezing, she had her lisinopril changed last hospital stay. She did not develop problems until she stopped using CPAP 6 months ago. Acute hypoxia - unclear etiology, could be bronchitis, will treat as such. Consult pulm. Wean O2 as tolerated. Transaminitis - will consult GI, had negative hepatitis panel. Pt was found to have elevated anti-mitochondrial antibodies (04/05). Called GI, they say acutely elevated liver enzymes more likely due to lung or R heart congestion than PBC ELMER previously on CPAP - may need repeat study. States she did a home study and had her CPAP taken away HTN - in urgency currently, will restart her home meds. Prn hydralazine HLD - cont statin Migraines with h/o TIA - monitor Anxiety with depression - cont home medications Hypothyroidism - will cont home med History of Present Illness History of Present Illness Ms Ng is a 58yo F w/ PMHx ELMER previously on CPAP, HTN, HLD, ELMER, migraines, TIA, anxiety, depression, OA, fibromyalgia, hypothyroidism who presented to ED c/o shortness of breath with cough and chest pain. She had O2 saturations less than 88% on room air and has not been on home O2 previously. Patient denies any nausea, vomiting, abdominal pain. She states the symptoms have worsened over the last couple days. She states she was here in March for similar type symptoms with movement of the hospital and subsequently discharged. Nothing makes her symptoms worse, nothing makes her symptoms better. She also c/o LE edema. BNP was checked, was 30. She had negative CXR, positive d dimer and underwent a CTPA showing no evidence of pulmonary thromboembolic disease. Initial EKG reveals sinus tachycardia, heart rate 116, no evidence of acute ST or T wave change, negative troponin. She was admitted 03/26/19 w/ chest pain. She underwent cardiac cath on 03/27 that was negative for occlusive disease and an EGD that showed mild reflux. Has been seen multiple times previously for non-cardiac chest pain. Found with abnormal LFTs worse than prior admit with AST, ALT, and alk phos in the 300s. Had anti- mitochondrial antibodies positive. Plan to treat outpatient for PBC when her respiratory status improves. Will have spiriva and albuterol as well as medrol on discharge. Will likely need a repeat sleep study. Called and discussed pt with GI. They believe improvement in pulmonary congestion may help LFTs. Considering ursodiol. Vitals Vitals Vital Signs Date Time Temp Pulse Resp B/P (MAP) Pulse Ox O2 Delivery O2 Flow Rate FiO2 05/02/19 07:00 97.8 72 17 155/65 (95) 94 Room Air 97.8 Physical Exam General: Alert, Oriented X3, Cooperative, No acute distress Heart: Regular rate, No murmurs Lungs: Clear, Other (b/l wheezes) Abdomen: Normal bowel sounds, Soft, Other (Obese.) Extremities: No clubbing, No cyanosis Labs LABS Laboratory Tests Test 05/01/19 09:35 05/01/19 18:38 Total Bilirubin 0.4 mg/dL (0.2-1.0) Direct Bilirubin 0.2 mg/dL (0.0-0.2) Aspartate Amino Transf (AST/SGOT) 106 U/L (15-37) Alanine Aminotransferase (ALT/SGPT) 208 U/L (14-59) Alkaline Phosphatase 229 U/L (46-116) Total Protein 6.5 g/dL (6.4-8.2) Albumin 3.0 g/dL (3.4-5.0) Glucose (Fingerstick) 96 mg/dL (70-99) Assessment and Plan Assessmemt and Plan Problems Medical Problems: (1) Elevated LFTs Status: Acute (2) Hypoxia Status: Acute (3) Sepsis Status: Acute (4) SOB (shortness of breath) Status: Acute Comment Review of Relevant I have reviewed the following items radha (where applicable) has been applied. Labs Laboratory Tests Test 04/30/19 09:25 04/30/19 09:50 04/30/19 13:15 04/30/19 17:27 Urine Collection Type Unknown Urine Color Yellow Urine Clarity Clear Urine pH 6.0 Urine Specific [place] <=1.005 Urine Protein Negative mg/dL (NEG-TRACE) Urine Glucose (UA) Negative mg/dL (NEG) Urine Ketones (Stick) Negative mg/dL (NEG) Urine Blood Negative (NEG) Urine Nitrite Negative (NEG) Urine Bilirubin Negative (NEG) Urine Urobilinogen Dipstick 1.0 mg/dL (0.2 mg/dL) Urine Leukocyte Esterase Negative (NEG) Urine RBC Occ /HPF (0-2) Urine WBC Occ /HPF (0-4) Urine Squamous Epithelial Cells Mod /LPF Urine Bacteria Few /HPF (0-FEW) Urine Opiates Screen Pos (NEG) Urine Methadone Screen Neg (NEG) Urine Barbiturates Neg (NEG) Urine Phencyclidine Screen Neg (NEG) Urine Amphetamine/Methamphetamine Neg (NEG) Urine Benzodiazepines Screen Pos (NEG) Urine Cocaine Screen Neg (NEG) Urine Cannabinoids Screen Neg (NEG) Urine Ethyl Alcohol Neg (NEG) White Blood Count 8.2 x10^3/uL (4.0-11.0) Red Blood Count 4.75 x10^6/uL (3.50-5.40) Hemoglobin 13.5 g/dL (12.0-15.5) Hematocrit 40.1 % (36.0-47.0) Mean Corpuscular Volume 85 fL (79-100) Mean Corpuscular Hemoglobin 28 pg (25-35) Mean Corpuscular Hemoglobin Concent 34 g/dL (31-37) Red Cell Distribution Width 13.2 % (11.5-14.5) Platelet Count 196 x10^3/uL (140-400) Neutrophils (%) (Auto) 90 % (31-73) Lymphocytes (%) (Auto) 6 % (24-48) Monocytes (%) (Auto) 2 % (0-9) Eosinophils (%) (Auto) 0 % (0-3) Basophils (%) (Auto) 0 % (0-3) Neutrophils # (Auto) 7.4 x10^3/uL (1.8-7.7) Lymphocytes # (Auto) 0.5 x10^3/uL (1.0-4.8) Monocytes # (Auto) 0.2 x10^3/uL (0.0-1.1) Eosinophils # (Auto) 0.0 x10^3/uL (0.0-0.7) Basophils # (Auto) 0.0 x10^3/uL (0.0-0.2) Segmented Neutrophils % 81 % (35-66) Band Neutrophils % 9 % (0-9) Lymphocytes % 6 % (24-48) Monocytes % 3 % (0-10) Basophils % 1 % (0-3) Platelet Estimate Adequate (ADEQUATE) D-Dimer (Kanika) 0.95 ug/mlFEU (0.00-0.50) Sodium Level 139 mmol/L (136-145) Potassium Level 4.5 mmol/L (3.5-5.1) Chloride Level 104 mmol/L (98-107) Carbon Dioxide Level 26 mmol/L (21-32) Anion Gap 9 (6-14) Blood Urea Nitrogen 8 mg/dL (7-20) Creatinine 1.0 mg/dL (0.6-1.0) Estimated GFR (Cockcroft-Gault) 56.6 BUN/Creatinine Ratio 8 (6-20) Glucose Level 118 mg/dL (70-99) Lactic Acid Level 2.3 mmol/L (0.4-2.0) 1.3 mmol/L (0.4-2.0) Calcium Level 9.9 mg/dL (8.5-10.1) Total Bilirubin 1.1 mg/dL (0.2-1.0) Aspartate Amino Transf (AST/SGOT) 334 U/L (15-37) Alanine Aminotransferase (ALT/SGPT) 354 U/L (14-59) Alkaline Phosphatase 302 U/L (46-116) Troponin I Quantitative < 0.017 ng/mL (0.000-0.055) PQ-Qtg-P-Type Natriuretic Peptide 30 pg/mL (0-124) Total Protein 6.7 g/dL (6.4-8.2) Albumin 3.5 g/dL (3.4-5.0) Albumin/Globulin Ratio 1.1 (1.0-1.7) Glucose (Fingerstick) 129 mg/dL (70-99) Test 05/01/19 09:35 05/01/19 18:38 Total Bilirubin 0.4 mg/dL (0.2-1.0) Direct Bilirubin 0.2 mg/dL (0.0-0.2) Aspartate Amino Transf (AST/SGOT) 106 U/L (15-37) Alanine Aminotransferase (ALT/SGPT) 208 U/L (14-59) Alkaline Phosphatase 229 U/L (46-116) Total Protein 6.5 g/dL (6.4-8.2) Albumin 3.0 g/dL (3.4-5.0) Glucose (Fingerstick) 96 mg/dL (70-99) Laboratory Tests Test 05/01/19 09:35 05/01/19 18:38 Total Bilirubin 0.4 mg/dL (0.2-1.0) Direct Bilirubin 0.2 mg/dL (0.0-0.2) Aspartate Amino Transf (AST/SGOT) 106 U/L (15-37) Alanine Aminotransferase (ALT/SGPT) 208 U/L (14-59) Alkaline Phosphatase 229 U/L (46-116) Total Protein 6.5 g/dL (6.4-8.2) Albumin 3.0 g/dL (3.4-5.0) Glucose (Fingerstick) 96 mg/dL (70-99) Microbiology 04/30/19 Blood Culture - Preliminary, Resulted NO GROWTH AFTER 1 DAY Medications Current Medications Albuterol/ Ipratropium (Duoneb) 3 ml 1X ONCE NEB Last administered on 04/30/19at 09:53; Start 04/30/19 at 09:45; Stop 04/30/19 at 09:46; Status DC Sodium Chloride 1,000 ml @ 1,000 mls/hr 1X ONCE IV Last administered on 04/30/19at 09:58; Start 04/30/19 at 10:00; Stop 04/30/19 at 10:59; Status DC Acetaminophen/ Hydrocodone Bitart (Lortab 5/325) 1 tab 1X ONCE PO Last administered on 04/30/19at 10:59; Start 04/30/19 at 11:00; Stop 04/30/19 at 11:01; Status DC Ceftriaxone Sodium (Rocephin) 1 gm 1X ONCE IVP Last administered on 04/30/19at 11:20; Start 04/30/19 at 11:00; Stop 04/30/19 at 11:01; Status DC Iohexol (Omnipaque 350 Mg/ml) 90 ml 1X ONCE IV Last administered on 04/30/19at 11:03; Start 04/30/19 at 11:15; Stop 04/30/19 at 11:16; Status DC Info (CONTRAST GIVEN -- Rx MONITORING) 1 each PRN DAILY PRN MC SEE COMMENTS; Start 04/30/19 at 11:00; Stop 05/02/19 at 10:59 Iohexol (Omnipaque 350 Mg/ml) 100 ml STK-MED ONCE .ROUTE ; Start 04/30/19 at 10:57; Stop 04/30/19 at 10:57; Status DC Alprazolam (Xanax) 1 mg DAILY PRN PO ANXIETY; Start 04/30/19 at 14:00 Aspirin (Evaristo Aspirin) 325 mg DAILY PO Last administered on 05/02/19at 08:42; Start 05/01/19 at 09:00 Cyclobenzaprine HCl (Flexeril) 10 mg TID PO ; Start 04/30/19 at 14:00; Stop 04/30/19 at 14:58; Status DC Fluticasone Propionate (Flonase) 2 spray DAILY NS Last administered on 05/01/19 08:26; Start 05/01/19 at 09:00 Levothyroxine Sodium (Synthroid) 125 mcg DAILY07 PO Last administered on 05/02/19at 08:42; Start 05/01/19 at 07:00 Trazodone HCl (Desyrel) 50 mg PRN QHS PRN PO INSOMNIA, 2ND CHOICE Last administered on 05/01/19 20:28; Start 04/30/19 at 14:00 Non-Formulary Medication (Albuterol Sulfate (Proventil Hfa)) 2 puff Q4-6HRS PRN IH WHEEZING; Start 04/30/19 at 14:00; Status UNV Fluoxetine HCl (PROzac) 40 mg DAILY PO Last administered on 05/02/19at 08:42; Start 05/01/19 at 09:00 Losartan Potassium (Cozaar) 100 mg QHS PO Last administered on 05/01/19at 20:29; Start 04/30/19 at 21:00 Labetalol HCl (Normodyne Iv Push) 10 mg PRN Q2HR PRN IVP HYPERTENSION; Start 04/30/19 at 14:00 Acetaminophen/ Hydrocodone Bitart (Lortab 5/325) 1 tab PRN Q4HRS PRN PO PAIN Last administered on 05/02/19at 04:12; Start 04/30/19 at 14:00 Niacin (Slo-Niacin) 500 mg HS PO Last administered on 05/01/19at 21:19; Start 04/30/19 at 21:00 Lansoprazole (Prevacid) 30 mg DAILYAC FT Last administered on 05/02/19at 08:42; Start 05/01/19 at 07:30 Zolpidem Tartrate (Ambien) 5 mg PRN QHS PRN PO INSOMNIA, 1ST CHOICE Last administered on 05/01/19 20:29; Start 04/30/19 at 14:15 Magnesium Chloride (Mag Delay) 64 mg QHS PO Last administered on 05/01/19 21:19; Start 04/30/19 at 21:00 Cetirizine HCl (ZyrTEC) 10 mg QHS PO Last administered on 05/01/19 20:29; Start 04/30/19 at 21:00 Albuterol Sulfate (Ventolin Neb Soln) 2.5 mg PRN Q4HRS PRN NEB SHORTNESS OF BREATH Last administered on 05/01/19at 02:34; Start 04/30/19 at 14:15 Cyclobenzaprine HCl (Flexeril) 10 mg PRN TID PRN PO MUSCLE PAIN; Start 04/30/19 at 15:00 Influenza Virus Vaccine Quadrival (Afluria Quad 2019-20 (3yr Up) Syringe) 0.5 ml ONCE ONCE VAX IM Last administered on 04/30/19at 16:12; Start 04/30/19 at 16:00; Stop 04/30/19 at 16:01; Status DC Guaifenesin (Robitussin Dm) 10 ml PRN Q6HRS PRN PO COUGH; Start 04/30/19 at 1 5:45 Pantoprazole Sodium (PROTONIX VIAL for IV PUSH) 40 mg 1X ONCE IVP Last administered on 04/30/19at 16:10; Start 04/30/19 at 16:15; Stop 04/30/19 at 16:16; Status DC Enoxaparin Sodium (Lovenox 60mg Syringe) 60 mg Q12H SQ ; Start 04/30/19 at 15:00; Stop 04/30/19 at 16:15; Status DC Enoxaparin Sodium (Lovenox 40mg Syringe) 40 mg QHS SQ Last administered on 05/01/19at 20:29; Start 04/30/19 at 21:00 Nystatin (Nystop) 1 ying BID TP Last administered on 05/02/19at 08:43; Start 05/01/19 at 12:00 Sumatriptan Succinate (Imitrex) 100 mg PRN Q2HR PRN PO MIGRAINE HEADACHE Last administered on 05/01/19at 18:56; Start 05/01/19 at 19:00 Tramadol HCl (Ultram) 50 mg PRN Q6HRS PRN PO PAIN Last administered on 05/02/19at 04:07; Start 05/01/19 at 19:00 Active Scripts Active Proventil Hfa (Albuterol Sulfate) 6.7 Gm Hfa.aer.ad 2 Puff IH Q4-6HRS PRN MDD 6 puff 7 Days Reported Hydrocodone-Apap 5-325 (Hydrocodone Bit/Acetaminophen) 1 Tab Tablet 1 Tab PO PRN Q4HRS PRN Aspirin 325 Mg Tablet 1 Tab PO DAILY LAST DOSE GIVEN: DATE:04/15/17 TIME:9:00 a.m. Omeprazole 20 Mg Capsule.dr 1 Cap PO DAILY LAST DOSE GIVEN: DATE:04/15/17 TIME:9:00 a.m. Fluticasone Propionate Nasal [place] (Fluticasone Propionate) 16 Gm [place].susp 2 [place] NS DAILY LAST DOSE GIVEN: DATE:04/15/17 TIME:9:00 a.m. Losartan Potassium 100 Mg Tablet 100 Mg PO HS [Xysol] 1 Tab PO HS [Slow Mag] 325 238 Mg PO HS Trazodone Hcl 50 Mg Tablet 50 Mg PO DAILY PRN Cyclobenzaprine Hcl 10 Mg Tablet 1 Tab PO TID LAST DOSE GIVEN: DATE:04/15/17 TIME:2:00 p.m. Niaspan (Niacin) 500 Mg Tab.er.24h 500 Mg PO HS Fish Oil ([place]-3 Fatty Acids) 500 Mg Capsule. 1,400 Mg PO Fluoxetine Hcl 20 Mg Tablet 40 Mg PO DAILY LAST DOSE GIVEN: DATE:04/15/17 TIME: 9:00 a.m. Zolpidem Tartrate 10 Mg Tablet 10 Mg PO PRN QHS PRN Levothyroxine Sodium 125 Mcg Tablet 125 Mcg PO DAILY LAST DOSE GIVEN: DATE:04/15/17 TIME:7:30 a.m. Alprazolam 1 Mg Tablet 1 Mg PO DAILY PRN Meds not given this hospital admission. May resume home medications as approved by Physician. Vitals/I & O Vital Sign - Last 24 Hours 05/01/19 05/01/19 05/01/19 05/01/19 12:18 12:35 15:00 19:00 Temp 98.1 98.1 96.7 98.2 98.1 98.1 96.7 98.2 Pulse 97 81 81 77 Resp 20 20 16 18 B/P (MAP) 159/80 (106) 157/65 (95) 166/64 (98) 152/72 (98) Pulse Ox 97 96 95 94 O2 Delivery Room Air Room Air Room Air Room Air 05/01/19 05/01/19 05/01/19 05/02/19 20:15 20:29 23:00 03:00 Temp 97.9 97.5 97.9 97.5 Pulse 77 101 98 Resp 18 18 B/P (MAP) 152/72 171/87 (115) 151/83 (105) Pulse Ox 94 97 O2 Delivery Room Air Room Air Room Air 05/02/19 05/02/19 05/02/19 05/02/19 04:07 04:12 05:15 05:15 O2 Delivery Room Air Room Air Room Air Room Air 05/02/19 07:00 Temp 97.8 97.8 Pulse 72 Resp 17 B/P (MAP) 155/65 (95) Pulse Ox 94 O2 Delivery Room Air Intake and Output 05/01/19 05/01/19 05/02/19 15:00 23:00 07:00 Intake Total 360 ml 360 ml Balance 360 ml 360 ml RUTH PAINTER MD May 02, 2019 08:53
--- NOTE | 2019-05-02 09:48 | PDOC ---
PULMONARY PROGRESS NOTES Subjective PT NOT MORE SOA Vitals Vital Signs Date Time Temp Pulse Resp B/P (MAP) Pulse Ox O2 Delivery O2 Flow Rate FiO2 05/02/19 07:00 97.8 72 17 155/65 (95) 94 Room Air 97.8 ROS: No Nausea, No Chest Pain, No Abdominal Pain, No Increase Cough General: Alert, No acute distress Lungs: Clear Cardiovascular: S1 Abdomen: Soft, Non-tender Neuro Exam: Alert Extremities: No Edema, Other Skin: Warm Labs Laboratory Tests Test 04/30/19 09:50 04/30/19 13:15 04/30/19 17:27 05/01/19 09:35 White Blood Count 8.2 x10^3/uL (4.0-11.0) Red Blood Count 4.75 x10^6/uL (3.50-5.40) Hemoglobin 13.5 g/dL (12.0-15.5) Hematocrit 40.1 % (36.0-47.0) Mean Corpuscular Volume 85 fL (79-100) Mean Corpuscular Hemoglobin 28 pg (25-35) Mean Corpuscular Hemoglobin Concent 34 g/dL (31-37) Red Cell Distribution Width 13.2 % (11.5-14.5) Platelet Count 196 x10^3/uL (140-400) Neutrophils (%) (Auto) 90 % (31-73) Lymphocytes (%) (Auto) 6 % (24-48) Monocytes (%) (Auto) 2 % (0-9) Eosinophils (%) (Auto) 0 % (0-3) Basophils (%) (Auto) 0 % (0-3) Neutrophils # (Auto) 7.4 x10^3/uL (1.8-7.7) Lymphocytes # (Auto) 0.5 x10^3/uL (1.0-4.8) Monocytes # (Auto) 0.2 x10^3/uL (0.0-1.1) Eosinophils # (Auto) 0.0 x10^3/uL (0.0-0.7) Basophils # (Auto) 0.0 x10^3/uL (0.0-0.2) Segmented Neutrophils % 81 % (35-66) Band Neutrophils % 9 % (0-9) Lymphocytes % 6 % (24-48) Monocytes % 3 % (0-10) Basophils % 1 % (0-3) Platelet Estimate Adequate (ADEQUATE) D-Dimer (Kanika) 0.95 ug/mlFEU (0.00-0.50) Sodium Level 139 mmol/L (136-145) Potassium Level 4.5 mmol/L (3.5-5.1) Chloride Level 104 mmol/L (98-107) Carbon Dioxide Level 26 mmol/L (21-32) Anion Gap 9 (6-14) Blood Urea Nitrogen 8 mg/dL (7-20) Creatinine 1.0 mg/dL (0.6-1.0) Estimated GFR (Cockcroft-Gault) 56.6 BUN/Creatinine Ratio 8 (6-20) Glucose Level 118 mg/dL (70-99) Lactic Acid Level 2.3 mmol/L (0.4-2.0) 1.3 mmol/L (0.4-2.0) Calcium Level 9.9 mg/dL (8.5-10.1) Total Bilirubin 1.1 mg/dL (0.2-1.0) 0.4 mg/dL (0.2-1.0) Aspartate Amino Transf (AST/SGOT) 334 U/L (15-37) 106 U/L (15-37) Alanine Aminotransferase (ALT/SGPT) 354 U/L (14-59) 208 U/L (14-59) Alkaline Phosphatase 302 U/L (46-116) 229 U/L (46-116) Troponin I Quantitative < 0.017 ng/mL (0.000-0.055) QJ-Dqb-W-Type Natriuretic Peptide 30 pg/mL (0-124) Total Protein 6.7 g/dL (6.4-8.2) 6.5 g/dL (6.4-8.2) Albumin 3.5 g/dL (3.4-5.0) 3.0 g/dL (3.4-5.0) Albumin/Globulin Ratio 1.1 (1.0-1.7) Glucose (Fingerstick) 129 mg/dL (70-99) Direct Bilirubin 0.2 mg/dL (0.0-0.2) Test 05/01/19 18:38 Glucose (Fingerstick) 96 mg/dL (70-99) Laboratory Tests Test 05/01/19 18:38 Glucose (Fingerstick) 96 mg/dL (70-99) Medications Active Scripts Medications Dose Route/Sig Max Daily Dose Days Date Category Dose Instructions Hydrocodone-Apap 5-325 (Hydrocodone Bit/Acetaminophen) 1 Tab Tablet 1 Tab PO PRN Q4HRS PRN 03/27/19 Reported Proventil Hfa (Albuterol Sulfate) 6.7 Gm Hfa.aer.ad 2 Puff IH Q4-6HRS PRN MDD 6 puff 7 04/16/18 Rx Aspirin 325 Mg Tablet 1 Tab PO DAILY 04/15/17 Reported LAST DOSE GIVEN: DATE:04/15/17 TIME:9:00 a.m. Omeprazole 20 Mg Capsule. 1 Cap PO DAILY 04/12/17 Reported LAST DOSE GIVEN: DATE:04/15/17 TIME:9:00 a.m. Fluticasone Propionate Nasal [place] (Fluticasone Propionate) 16 Gm [place].susp 2 [place] NS DAILY 04/12/17 Reported LAST DOSE GIVEN: DATE:04/15/17 TIME:9:00 a.m. Losartan Potassium 100 Mg Tablet 100 Mg PO HS 04/12/17 Reported [Xysol] 1 Tab PO HS 04/04/17 Reported [Slow Mag] 325 238 Mg PO HS 04/04/17 Reported Trazodone Hcl 50 Mg Tablet 50 Mg PO DAILY PRN 07/19/16 Reported Cyclobenzaprine Hcl 10 Mg Tablet 1 Tab PO TID 07/19/16 Reported LAST DOSE GIVEN: DATE:04/15/17 TIME:2:00 p.m. Niaspan (Niacin) 500 Mg Tab.er.24h 500 Mg PO HS 12/19/14 Reported Fish Oil ([place]-3 Fatty Acids) 500 Mg Capsule. 1,400 Mg PO 11/07/13 Reported Fluoxetine Hcl 20 Mg Tablet 40 Mg PO DAILY 11/07/13 Reported LAST DOSE GIVEN: DATE:04/15/17 TIME: 9:00 a.m. Zolpidem Tartrate 10 Mg Tablet 10 Mg PO PRN QHS PRN 11/07/13 Reported Levothyroxine Sodium 125 Mcg Tablet 125 Mcg PO DAILY 06/18/13 Reported LAST DOSE GIVEN: DATE:04/15/17 TIME:7:30 a.m. Alprazolam 1 Mg Tablet 1 Mg PO DAILY PRN 06/18/13 Reported Meds not given this hospital admission. May resume home medications as approved by Physician. Impression . IMPRESSION: 1. Hypoxemia, suspect secondary to shunting from morbid obesity and chronic obstructive pulmonary disease. 2. Chronic obstructive pulmonary disease with mild acute exacerbation. 3. Chest pain with a negative cardiac catheterization in the past on 03/27, now negative CT angiogram for PE protocol. 4. Cough related to acute nonspecific bronchitis along with gastroesophageal reflux. 5. Elevated liver chemistries. 6. Obstructive sleep apnea. 7. Hypertension. 8. Morbid obesity. Plan . DC HOME TODAY 1. From a pulmonary standpoint of view, the patient will do well with p.r.n. albuterol, would add Spiriva upon discharge. 2. Evaluate for physical therapy. I suggest the patient undergo outpatient physical therapy. 3. Avoid processed foods. 4. Exercise regimen program. 5. Follow up in the office once discharged. BEN WASHINGTON MD May 02, 2019 09:48
--- NOTE | 2019-05-02 10:32 | NUR ---
SW following pt. Discussed with ICU SS and pt is a transfer from ICU. PT/OT recommends home independent. Pulmonary following. SW will be available as needed.
[2019-05-02 11:02] VITALS: BP 161/73
--- NOTE | 2019-05-02 11:44 | PDOC ---
Subjective: Subjective: Hopefully going home today, no GI complaints. Objective: Objective: Reviewed chart - code stroke called yesterday - apparently symptoms related to migraines. Vital Signs: Vital Signs Date Time Temp Pulse Resp B/P (MAP) Pulse Ox O2 Delivery O2 Flow Rate FiO2 05/02/19 11:02 97.8 78 17 161/73 (102) 94 Room Air 97.8 Labs: Laboratory Tests Test 05/01/19 18:38 Glucose (Fingerstick) 96 mg/dL BLOOD CULTURE Preliminary NO GROWTH AFTER 2 DAYS PE: GEN: NAD LUNGS: room air HEART: RRR ABD: obese, RUQ tenderness, soft NEURO/PSYCH: A & O 3 A/P: Hypoxemia, COPD, chronic chest pain Elevated LFTs (improved), underlying PBC -- DC per primary/pulm. Continue PPI. Follow-up in the office w/ Dr. Payne (business card provided and our office will also call to schedule) to discuss PBC/treatment. AYANA CUEVAS May 02, 2019 11:44
[2019-05-02] MEDS ORDERED: TIOT18CA IH (12:59)
--- NOTE | 2019-05-02 13:05 | PDOC3 ---
Discharge Summary Visit Information Date of Admission: Apr 30, 2019 Date of Discharge: May 02, 2019 Admitting Diagnosis: Acute hypoxic resp failure Final Diagnosis Problems Medical Problems: (1) Elevated LFTs Status: Acute (2) Hypoxia Status: Acute (3) Sepsis Status: Acute (4) SOB (shortness of breath) Status: Acute Brief Hospital Course Allergies Allergies Coded Allergies Type Severity Reaction Last Updated Verified prochlorperazine Adverse Reaction Severe 04/30/19 Yes Nlkuyqc-Uan-Pmu Reductase Inhibitor Adverse Reaction Intermediate INCREASED LIVER ENZYMES 03/29/19 Yes Vital Signs Vital Signs Date Time Temp Pulse Resp B/P (MAP) Pulse Ox O2 Delivery O2 Flow Rate FiO2 05/02/19 11:02 97.8 78 17 161/73 (102) 94 Room Air 97.8 Lab Results Laboratory Tests Test 04/30/19 13:15 04/30/19 17:27 05/01/19 09:35 05/01/19 18:38 Lactic Acid Level 1.3 mmol/L (0.4-2.0) Glucose (Fingerstick) 129 mg/dL (70-99) 96 mg/dL (70-99) Total Bilirubin 0.4 mg/dL (0.2-1.0) Direct Bilirubin 0.2 mg/dL (0.0-0.2) Aspartate Amino Transf (AST/SGOT) 106 U/L (15-37) Alanine Aminotransferase (ALT/SGPT) 208 U/L (14-59) Alkaline Phosphatase 229 U/L (46-116) Total Protein 6.5 g/dL (6.4-8.2) Albumin 3.0 g/dL (3.4-5.0) Laboratory Tests Test 05/01/19 18:38 Glucose (Fingerstick) 96 mg/dL (70-99) Brief Hospital Course Shortness of breath A/P: Chest pain - sounds pleuritic, has had recent negative cath on 03/27. Only related to her coughing. Will trend troponins, telemetry Cough - with shortness of breath. Has been treated for reflux and had negative CTPA. Will cont reflux treatment. No significant wheezing, she had her lisinopril changed last hospital stay. She did not develop problems until she stopped using CPAP 6 months ago. Acute hypoxia - unclear etiology, could be bronchitis, will treat as such. Consult pulm. Wean O2 as tolerated. Transaminitis - will consult GI, had negative hepatitis panel. Pt was found to have elevated anti-mitochondrial antibodies (04/05). Called GI, they say acutely elevated liver enzymes more likely due to lung or R heart congestion than PBC ELMER previously on CPAP - may need repeat study. States she did a home study and had her CPAP taken away HTN - in urgency currently, will restart her home meds. Prn hydralazine HLD - cont statin Migraines with h/o TIA - monitor Anxiety with depression - cont home medications Hypothyroidism - will cont home med Ms Ng is a 58yo F w/ PMHx ELMER previously on CPAP, HTN, HLD, ELMER, migraines, TIA, anxiety, depression, OA, fibromyalgia, hypothyroidism who presented to ED c/o shortness of breath with cough and chest pain. She had O2 saturations less than 88% on room air and has not been on home O2 previously. Patient denies any nausea, vomiting, abdominal pain. She states the symptoms have worsened over the last couple days. She states she was here in March for similar type symptoms with movement of the hospital and subsequently discharged. Nothing makes her symptoms worse, nothing makes her symptoms better. She also c/o LE edema. BNP wa s checked, was 30. She had negative CXR, positive d dimer and underwent a CTPA showing no evidence of pulmonary thromboembolic disease. Initial EKG reveals sinus tachycardia, heart rate 116, no evidence of acute ST or T wave change, negative troponin. She was admitted 03/26/19 w/ chest pain. She underwent cardiac cath on 03/27 that was negative for occlusive disease and an EGD that showed mild reflux. Has been seen multiple times previously for non-cardiac chest pain. Found with abnormal LFTs worse than prior admit with AST, ALT, and alk phos in the 300s. Had anti- mitochondrial antibodies positive. Plan to treat outpatient for PBC when her respiratory status improves. Will have spiriva and albuterol as well as medrol on discharge. Will likely need a repeat sleep study. Called and discussed pt with GI. They believe improvement in pulmonary congestion may help LFTs. Considering ursodiol. Seen by pulmonology as well Discharge Information Condition at Discharge: Improved Follow Up: Weeks (2) Disposition/Orders: D/C to Home Scheduled Aspirin (Aspirin) 325 Mg Tablet, 1 TAB PO DAILY for cardiac, #30 Ref 5 (Reported) LAST DOSE GIVEN: DATE:04/15/17 TIME:9:00 a.m. Entered as Reported by: HENRIQUE WALDRON on 04/15/17 1325 Last Action: Reviewed on 04/30/191352 by CAYLA SEGURA Cyclobenzaprine Hcl (Cyclobenzaprine Hcl) 10 Mg Tablet, 1 TAB PO TID, #90 (Reported) LAST DOSE GIVEN: DATE:04/15/17 TIME:2:00 p.m. Entered as Reported by: Mariama Caraballo on 07/19/16 0503 Last Action: Continued on 04/30/191349 by RUTH PAINTER MD Fluoxetine Hcl (Fluoxetine Hcl) 20 Mg Tablet, 40 MG PO DAILY, (Reported) LAST DOSE GIVEN: DATE:04/15/17 TIME: 9:00 a.m. Entered as Reported by: GABRIELA WHEATLEY on 11/07/13 1416 Last Action: Reviewed on 04/30/191352 by CAYLA SEGURA Fluticasone Propionate (Fluticasone Propionate Nasal [place]) 16 Gm [place].susp, 2 SPRAY NS DAILY, #1 Ref 11 (Reported) LAST DOSE GIVEN: DATE:04/15/17 TIME:9:00 a.m. Entered as Reported by: SHALOM OLGUIN on 04/12/17 09 Last Action: Reviewed on 04/30/191352 by CAYLA SEGURA Levothyroxine Sodium (Levothyroxine Sodium) 125 Mcg Tablet, 125 MCG PO DAILY, (Reported) LAST DOSE GIVEN: DATE:04/15/17 TIME:7:30 a.m. Entered as Reported by: DIANA VARGAS on 06/18/13 1600 Last Action: Reviewed on 04/30/191352 by CAYLA SEGURA Losartan Potassium (Losartan Potassium) 100 Mg Tablet, 100 MG PO HS, (Reported) Entered as Reported by: SHALOM OLGUIN on 04/12/17 0927 Last Action: Reviewed on 04/30/191352 by CAYLA SEGURA Niacin (Niaspan) 500 Mg Tab.er.24h, 500 MG PO HS, (Reported) Entered as Reported by: CAYLA SEGURA on 12/19/14 0729 Last Action: Continued on 04/30/191355 by CAYLA SEGURA Omeprazole (Omeprazole) 20 Mg Capsule.dr, 1 CAP PO DAILY, #30 Ref 5 (Reported) LAST DOSE GIVEN: DATE:04/15/17 TIME:9:00 a.m. Entered as Reported by: SHALOM OLGUIN on 04/12/17926 Last Action: Converted on 04/30/191355 by CAYLA SEGURA Tiotropium [place] (Spiriva) 18 Mcg Cap.w.dev, 1 CAP IH DAILY for COPD for 30 Days, #30 Ref 3 Prescribed by: RUTH PAINTER MD on 05/02/19 1259 [Slow Mag] 325 , 238 MG PO HS, (Reported) Entered as Reported by: CAYLA ADORNO on 04/04/17 1209 Last Action: Converted on 04/30/191355 by CAYLA SEGURA [Xysol] , 1 TAB PO HS, (Reported) Entered as Reported by: CAYLA ADORNO on 04/04/17 1211 Last Action: Converted on 04/30/191355 by CAYLA SEGURA Scheduled PRN Albuterol Sulfate (Proventil Hfa) 6.7 Gm Hfa.aer.ad, 2 PUFF IH Q4-6HRS PRN for WHEEZING MDD 6 puff for 7 Days, #1 Prescribed by: COLT HASSAN on 04/16/18 050 Last Action: Reviewed on 04/30/191352 by CAYLA SEGURA Alprazolam (Alprazolam) 1 Mg Tablet, 1 MG PO DAILY PRN for ANXIETY, (Reported) Meds not given this hospital admission. May resume home medications as approved by Physician. Entered as Reported by: DIANA VARGAS on 06/18/13 1539 Last Action: Reviewed on 04/30/191352 by CAYLA SEGURA Hydrocodone Bit/Acetaminophen (Hydrocodone-Apap 5-325 ) 1 Tab Tablet, 1 TAB PO PRN Q4HRS PRN for PAIN, Ref 0 (Reported) Entered as Reported by: Lori Bardales on 03/27/19 0134 Last Action: Continued on 04/30/191355 by CAYLA SEGURA Trazodone Hcl (Trazodone Hcl) 50 Mg Tablet, 50 MG PO DAILY PRN for MIGRAINE HEADACHE, (Reported) Entered as Reported by: Mariama Caraballo on 07/19/16 0503 Last Action: Reviewed on 04/30/191352 by CAYLA SEGURA Zolpidem Tartrate (Zolpidem Tartrate) 10 Mg Tablet, 10 MG PO PRN QHS PRN for INSOMNIA, (Reported) Entered as Reported by: GABRIELA WHEATLEY on 11/07/131415 Last Action: Converted on 04/30/191355 by CAYLA SEGURA Miscellaneous Medications [place]-3 Fatty Acids (Fish Oil) 500 Mg Capsule.dr, 1,400 MG PO, (Reported) Entered as Reported by: GABRIELA WHEATLEY on 11/07/131415 Last Action: Reviewed on 04/30/191352 by RUTH BARRAGAN MD May 02, 2019 13:05
[2019-05-02] MEDS ORDERED: ALBU0.63 NEB (13:09)
--- NOTE | 2019-05-02 14:00 | NUR ---
DISCHARGE INSTRUCTIONS GIVEN, QUESTIONS AND CONCERNS ANSWERED, PATIENT VERBALIZED UNDERSTANDING OF DISCHARGE INFORMATION INCLUDING TAKING ALL MEDICATIONS INSTRUCTED AND FOLLOWING UP WITH DR. ELDER, DR. W[place] AND HER PRIMARY PROVIDER INSTRUCTED, ALL PERSONAL BELONGINGS GATHERED BY THE PATIENT AND PLACED IN BAGS FOR DISCHARGE.
--- NOTE | 2019-05-02 14:35 | NUR ---
PATIENT LEAVES THE UNIT PER W/C AND ACCOMPANIED BY THIS BOOM TENDER, EMOTIONAL SUPPORT GIVEN, FOLLOW UP APPOINTMENTS ENCOURAGED.
== END 2019-05-02 14:35 | disposition home or self-care (01) | DRG 189 ==
LOC: ER 09:10 → 1 WEST ICU 10:56 → 5 SOUTH 05-01 12:32
PROVIDERS: ADMIT Internal Medicine; ATTEND Internal Medicine
DX: J96.01 Acute respiratory failure with hypoxia (principal); J44.1 Chronic obstructive pulmonary disease with (acute) exacerbation; Z68.43 Body mass index [BMI] 50.0-59.9, adult; K21.0 Gastro-esophageal reflux disease with esophagitis; E66.01 Morbid (severe) obesity due to excess calories; E03.9 Hypothyroidism, unspecified; E78.00 Pure hypercholesterolemia, unspecified; E78.5 Hyperlipidemia, unspecified; F41.8 Other specified anxiety disorders; G43.909 Migraine, unspecified, not intractable, without status migrainosus; G47.33 Obstructive sleep apnea (adult) (pediatric); G89.29 Other chronic pain; I10 Essential (primary) hypertension; K58.9 Irritable bowel syndrome, unspecified; K76.0 Fatty (change of) liver, not elsewhere classified; Z90.710 Acquired absence of both cervix and uterus; M79.7 Fibromyalgia; Z79.82 Long term (current) use of aspirin; Z82.3 Family history of stroke; Z82.49 Family history of ischemic heart disease and other diseases of the circulatory system; Z86.73 Personal history of transient ischemic attack (TIA), and cerebral infarction without residual deficits; Z87.11 Personal history of peptic ulcer disease; Z87.19 Personal history of other diseases of the digestive system; Z90.49 Acquired absence of other specified parts of digestive tract; Z96.653 Presence of artificial knee joint, bilateral; F32.9 Major depressive disorder, single episode, unspecified; F41.9 Anxiety disorder, unspecified; K57.90 Diverticulosis of intestine, part unspecified, without perforation or abscess without bleeding
CPT/HCPCS: 36415; 71045; 71275; 80053; 80076; 80307; 81001; 82962; 83605; 83880; 84484; 85007; 85025; 85379; 87040; 90471; 90686; 93005; 94640; 96374; C9113; J0696; J1650; J7030; J7613; J7620; Q9967; 99285-25; G0378

== ENCOUNTER 2019-05-20 21:11 | Inpatient (IN) | payer BC ==
[~2019-05-20] VITALS: Ht 170.2 cm; Wt 108.0 kg
[2019-05-20 01:20] VITALS: BP 123/61
[~2019-05-20 21:11] MED LIST changes: +ALBU0.63 NEB; +TIOT18CA IH
--- NOTE | 2019-05-20 21:49 | PHYS DOC ---
Past Medical History Past Medical History: Anemia, Anxiety, Depression, Diverticulosis, Fibromyalgia, GERD, High Cholesterol, Hypertension, Migraines, Ovarian Cyst, TIA Additional Past Medical Histor: ELMER,SHINGLES,PEPTIC ULCER, COLON POLYPS Past Surgical History: Appendectomy, Cholecystectomy, Hysterectomy, Knee Replacement, Oophorectomy, Tonsillectomy Additional Past Surgical Histo: BILAT KNEE REPLACEMENTS Alcohol Use: None Drug Use: None Adult General Chief Complaint Chief Complaint: SHORTNESS OF BREATH [facility] HPI 58-year-old female presents emergency Department complaints of chest pain, shortness of breath. Patient was discharged from this facility approximately 2 weeks ago with diagnosis of pulmonary, binary cirrhosis of the liver. He states she falls a pulmonary as well as GI. Patient denies any nausea or vomiting. She states around 7 PM she developed increasing shortness of breath, used her inhaler however no significant improvement. She didn't use a nebulizer treatment without improvement and subsequently presented to the hospital for further evaluation. Nothing makes her shortness of breath worse, nothing makes her shortness of breath better. Review of Systems Review of Systems Constitutional: Denies fever or chills [] Respiratory: Cough, shortness breath Cardiovascular: No additional information not addressed in HPI [] GI: Right upper quadrant abdominal pain, denies nausea, vomiting, bloody stools or diarrhea [] Neurologic: Denies headache, focal weakness or sensory changes [] All other systems were reviewed and found to be within normal limits, except as documented in this note. Current Medications Current Medications Current Medications Medications (Trade) Dose Ordered Sig/Aretha Start Time Stop Time Status Last Admin Dose Admin Albuterol/ Ipratropium (Duoneb) 3 ml 1X ONCE 05/20/19 22:00 05/20/19 22:02 DC 05/20/19 22:02 3 ML Allergies Allergies Allergies Coded Allergies Type Severity Reaction Last Updated Verified prochlorperazine Adverse Reaction Severe 04/30/19 Yes Ndthsul-Ftx-Lfx Reductase Inhibitor Adverse Reaction Intermediate INCREASED LIVER ENZYMES 03/29/19 Yes Physical Exam Physical Exam Constitutional: Well developed, well nourished, no acute distress, non-toxic appearance. [] HENT: Normocephalic, atraumatic, bilateral external ears normal, oropharynx moist, no oral exudates, nose normal. [] Eyes: PERRLA, EOMI, conjunctiva normal, no discharge. [] Cardiovascular:Heart rate regular rhythm, no murmur [] Lungs & Thorax: Decreased breath sounds. Occasional wheeze appreciated Abdomen: Bowel sounds normal, soft, no tenderness, no masses, no pulsatile masses. [] Skin: Warm, dry, no erythema, no rash. [] Extremities: No tenderness, no edema. [] Neurologic: Alert and oriented X 3, no focal deficits noted. [] Psychologic: Affect normal, judgement normal, mood normal. [] Current Patient Data Vital Signs Vital Signs Date Time Temp Pulse Resp B/P (MAP) Pulse Ox O2 Delivery O2 Flow Rate FiO2 05/20/19 22:02 95 Nasal Cannula 2.0 05/20/19 21:25 98.0 80 18 158/66 (96) 98.0 Lab Values Laboratory Tests Test 05/20/19 21:50 White Blood Count 6.8 x10^3/uL (4.0-11.0) Red Blood Count 4.59 x10^6/uL (3.50-5.40) Hemoglobin 12.7 g/dL (12.0-15.5) Hematocrit 38.3 % (36.0-47.0) Mean Corpuscular Volume 84 fL (79-100) Mean Corpuscular Hemoglobin 28 pg (25-35) Mean Corpuscular Hemoglobin Concent 33 g/dL (31-37) Red Cell Distribution Width 13.6 % (11.5-14.5) Platelet Count 203 x10^3/uL (140-400) Neutrophils (%) (Auto) 67 % (31-73) Lymphocytes (%) (Auto) 24 % (24-48) Monocytes (%) (Auto) 6 % (0-9) Eosinophils (%) (Auto) 2 % (0-3) Basophils (%) (Auto) 1 % (0-3) Neutrophils # (Auto) 4.5 x10^3/uL (1.8-7.7) Lymphocytes # (Auto) 1.6 x10^3/uL (1.0-4.8) Monocytes # (Auto) 0.4 x10^3/uL (0.0-1.1) Eosinophils # (Auto) 0.2 x10^3/uL (0.0-0.7) Basophils # (Auto) 0.1 x10^3/uL (0.0-0.2) D-Dimer (Kanika) < 0.27 ug/mlFEU Sodium Level 143 mmol/L (136-145) Potassium Level 3.9 mmol/L (3.5-5.1) Chloride Level 106 mmol/L (98-107) Carbon Dioxide Level 27 mmol/L (21-32) Anion Gap 10 (6-14) Blood Urea Nitrogen 11 mg/dL (7-20) Creatinine 1.0 mg/dL (0.6-1.0) Estimated GFR (Cockcroft-Gault) 56.6 BUN/Creatinine Ratio 11 (6-20) Glucose Level 106 mg/dL (70-99) H Calcium Level 9.5 mg/dL (8.5-10.1) Total Bilirubin 0.3 mg/dL (0.2-1.0) Aspartate Amino Transferase (AST) 35 U/L (15-37) Alanine Aminotransferase (ALT) 52 U/L (14-59) Alkaline Phosphatase 148 U/L (46-116) H Troponin I Quantitative < 0.017 ng/mL (0.000-0.055) QN-Xue-A-Type Natriuretic Peptide 97 pg/mL (0-124) Total Protein 6.8 g/dL (6.4-8.2) Albumin 3.3 g/dL (3.4-5.0) L Albumin/Globulin Ratio 0.9 (1.0-1.7) L Laboratory Tests 05/20/19 21:50 Laboratory Tests 05/20/19 21:50 EKG EKG EKG reviewed, normal sinus rhythm, normal axis no evidence of acute ST elevation [place], heart rate 83, interpretation time 2133[] Radiology/Procedures Radiology/Procedures [][facility] [address] [place], [place] [id number] IMAGING REPORT Signed PATIENT: LULU WEINBERG ACCOUNT: [id number] : 1960 LOCATION: ER AGE: 58 SEX: F EXAM STATUS: REG ER ORD. PHYSICIAN: BRITTANY CELAYA MD REASON: sob/chest p[ain PROCEDURE: CHEST AP ONLY Exam: Chest one view INDICATION: Shortness of breath TECHNIQUE: Frontal view of the chest Comparisons: None FINDINGS: Heart is enlarged. Pulmonary vessels are within normal limits. The lung and pleural spaces are clear. IMPRESSION: No acute cardiopulmonary process. Electronically signed by: Murali Phillips MD (05/20/2019 10:24 PM) [facility] DICTATED and SIGNED BY: MURALI PHILLIPS MD DATE: 05/20/19 2224 Course & Med Decision Making Course & Med Decision Making Pertinent Labs and Imaging studies reviewed. (See chart for details) []58-year-old female presents emergency Department complaints of chest pain, shortness of breath. Patient was discharged from this facility approximately 2 weeks ago with diagnosis of pulmonary, binary cirrhosis of the liver. He states she falls a pulmonary as well as GI. Patient denies any nausea or vomiting. She states around 7 PM she developed increasing shortness of breath, used her inhaler however no significant improvement. She didn't use a nebulizer treatment without improvement and subsequently presented to the hospital for further evaluation. Nothing makes her shortness of breath worse, nothing makes her shortness of breath better. Labs/Imaging reviewed LFTs improved from last visit Xray without acute consolidation however patient with continued SOB/dyspnea on exertion. Ddimer normal limits Held lasix 2/2 low BP Admit for increased dyspnea, requiring O2 therapy Consult Flory Rodriguez Disclaimer Jennifer Disclaimer This electronic medical record was generated, in whole or in part, using a voice recognition dictation system. Departure Departure Impression: Primary Impression: Abdominal pain Additional Impressions: SOB (shortness of breath) HTN (hypertension) Disposition: 09 ADMITTED INPATIENT Admitting Physician: HIMS Condition: STABLE Referrals: RUTH PEREZ (PCP) Problem Qualifiers Primary Impression: Abdominal pain Abdominal location: right upper quadrant Qualified Codes: R10.11 - Right upper quadrant pain Additional Impressions: HTN (hypertension) Hypertension type: unspecified Qualified Codes: I10 - Essential (primary) hypertension BRITTANY CELAYA MD May 20, 2019 21:49
[2019-05-20] MEDS ORDERED: IPRATRPIUM/ALBUTEROL 0.5/2.5MG 3 ML NEBU. NEB ONE (22:00)
[2019-05-20 22:01] LABS: BASO # 0.1 x10^3/uL (0.0-0.2); BASO % 1 % (0-3); EOS # 0.2 x10^3/uL (0.0-0.7); EOS % 2 % (0-3); HEMATOCRIT 38.3 % (36.0-47.0); HEMOGLOBIN 12.7 g/dL (12.0-15.5); LYMPH # 1.6 x10^3/uL (1.0-4.8); LYMPH % 24 % (24-48); MEAN CORPUSCULAR HEMOGLOBIN 28 pg (25-35); MEAN CORPUSCULAR HGB CONC 33 g/dL (31-37); MEAN CORPUSCULAR VOLUME 84 fL (79-100); MONO # 0.4 x10^3/uL (0.0-1.1); MONO % 6 % (0-9); NEUT # 4.5 x10^3/uL (1.8-7.7); NEUT % 67 % (31-73); PLATELET COUNT 203 x10^3/uL (140-400); RED BLOOD COUNT 4.59 x10^6/uL (3.50-5.40); RED CELL DISTRIBUTION WIDTH 13.6 % (11.5-14.5); WHITE BLOOD COUNT 6.8 x10^3/uL (4.0-11.0)
[2019-05-20 22:12] LABS: CALCIUM 9.5 mg/dL (8.5-10.1); GFR 56.6; POTASSIUM 3.9 mmol/L (3.5-5.1)
[2019-05-20 22:18] LABS: ALBUMIN 3.3 g/dL (3.4-5.0); ALBUMIN/GLOBULIN RATIO 0.9 (1.0-1.7); TOTAL BILIRUBIN 0.3 mg/dL (0.2-1.0); TOTAL PROTEIN 6.8 g/dL (6.4-8.2)
--- NOTE | 2019-05-20 22:27 | RAD ---
Exam: Chest one view INDICATION: Shortness of breath TECHNIQUE: Frontal view of the chest Comparisons: None FINDINGS: Heart is enlarged. Pulmonary vessels are within normal limits. The lung and pleural spaces are clear. IMPRESSION: No acute cardiopulmonary process. Electronically signed by: Murali Padgett MD (05/20/2019 10:24 PM) [facility]
[2019-05-20] MEDS ORDERED: ONDANSETRON PF 4 MG/2 ML VIAL. IV PRN (23:30)
[2019-05-20] MEDS ORDERED: FUROSEMIDE 100 MG/10 ML VIAL. IVP ONE (23:30)
[2019-05-20] MEDS ORDERED: ACETAMINOPHEN 325 MG TABLET. PO PRN (23:30)
[2019-05-21] MEDS ORDERED: HYDROcodone/APAP 5/325MG 1 TAB TABLET PO PRN (02:30)
[2019-05-21 04:16] LABS: BASO # 0.1 x10^3/uL (0.0-0.2); BASO % 1 % (0-3); EOS # 0.2 x10^3/uL (0.0-0.7); EOS % 2 % (0-3); HEMATOCRIT 36.1 % (36.0-47.0); HEMOGLOBIN 11.7 g/dL (12.0-15.5); LYMPH # 1.7 x10^3/uL (1.0-4.8); LYMPH % 24 % (24-48); MEAN CORPUSCULAR HEMOGLOBIN 28 pg (25-35); MEAN CORPUSCULAR HGB CONC 33 g/dL (31-37); MEAN CORPUSCULAR VOLUME 85 fL (79-100); MONO # 0.5 x10^3/uL (0.0-1.1); MONO % 7 % (0-9); NEUT # 4.5 x10^3/uL (1.8-7.7); NEUT % 66 % (31-73); PLATELET COUNT 192 x10^3/uL (140-400); RED BLOOD COUNT 4.25 x10^6/uL (3.50-5.40); RED CELL DISTRIBUTION WIDTH 13.4 % (11.5-14.5); WHITE BLOOD COUNT 6.9 x10^3/uL (4.0-11.0)
[2019-05-21 04:39] LABS: ALBUMIN/GLOBULIN RATIO 0.9 (1.0-1.7); CALCIUM 9.2 mg/dL (8.5-10.1); CREATININE 0.9 mg/dL (0.6-1.0); GFR 63.9; TOTAL BILIRUBIN 0.3 mg/dL (0.2-1.0); TOTAL PROTEIN 6.4 g/dL (6.4-8.2)
[2019-05-21 07:58] VITALS: BP 111/50
[2019-05-21] MEDS: MORPHINE SULFATE 2 MG/ML VIAL. IV PRN ×3 (08:25→21:08)
--- NOTE | 2019-05-21 09:11 | EKG ---
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
[2019-05-21] MEDS ORDERED: ALPRAZolam 1 MG TABLET PO PRN (09:30)
[2019-05-21] MEDS ORDERED: CALCIUM CARBONATE 500 MG TAB.CHEW PO PRN (09:30)
[2019-05-21] MEDS ORDERED: ONDANSETRON PF 4 MG/2 ML VIAL. IVP PRN (09:30)
[2019-05-21] MEDS ORDERED: NON FORMULARY ITEM (Albuterol Sulfate (Proventil Hfa) 2 PUFF) IH PRN (09:30)
[2019-05-21] MEDS ORDERED: ACETAMINOPHEN 500 MG TABLET PO PRN (09:30)
[2019-05-21] MEDS ORDERED: NON FORMULARY ITEM (Albuterol Sulfate (Albuterol Sulfate Neb Soln) 1 VIAL) NEB PRN (09:30)
[2019-05-21] MEDS ORDERED: ACETAMINOPHEN/CODEINE 300/30MG TABLET. PO PRN (09:30)
[2019-05-21] MEDS ORDERED: guaiFENesin DM 200MG/20MG 10 ML SYRUP PO PRN (09:30)
[2019-05-21] MEDS ORDERED: ALPRAZolam 0.25 MG TABLET PO PRN (09:30)
[2019-05-21] MEDS ORDERED: ZOLPIDEM 5 MG TABLET. PO PRN (09:45)
[2019-05-21] MEDS ORDERED: traZODone 50 MG TABLET. PO PRN (09:45)
--- NOTE | 2019-05-21 09:52 | PDOC1 ---
History and Physical Date of Admission Date of Admission DATE: 05/21/19 TIME: 09:42 Identification/Chief Complaint Chief Complaint soa on day of admission Source Source: Caregiver, Chart review, Patient History of Present Illness History of Present Illness Seemingly sudden onset SOA on day of admission, sats were 92% on arrival, not on home o2, non smoker, on inhalers at home but denies COPD dx. RElays to me recent dc PBC by DR Payne, 2 weeks ago here, has an appt with him this week in office and wishes to see him while she is admitted, Labs and CXR ok She lives at home with a , uses assistive of ambulation prn Past Medical History Cardiovascular: HTN, Hyperlipidemia Pulmonary: No pertinent hx CENTRAL NERVOUS SYSTEM: TIA GI: Diverticulosis, Hemorrhoids, Peptic Ulcer disease Heme/Onc: No pertinent hx Hepatobiliary: No pertinent hx Psych: Anxiety Musculoskeletal: Osteoarthritis Rheumatologic: Fibromyalgia Infectious disease: No pertinent hx Endocrine: Hypothyroidism Past Surgical History Past Surgical History: Appendectomy, Cholecystectomy, Total knee replacement, Tonsillectomy, Hysterectomy Family History Family History: Heart Disease, Hypertension Social History ALCOHOL: none Drugs: None Current Problem List Problem List Problems Medical Problems: (1) Abdominal pain Status: Acute (2) Atypical chest pain Status: Acute (3) HTN (hypertension) Status: Chronic (4) SOB (shortness of breath) Status: Acute Current Medications Current Medications Current Medications Albuterol/ Ipratropium (Duoneb) 3 ml 1X ONCE NEB Last administered on 05/20/19at 22:02; Start 05/20/19 at 22:00; Stop 05/20/19 at 22:02; Status DC Furosemide (Lasix) 60 mg 1X ONCE IVP ; Start 05/20/19 at 23:30; Stop 05/20/19 at 23:31; Status DC Ondansetron HCl (Zofran) 4 mg PRN Q8HRS PRN IV NAUSEA/VOMITING; Start 05/20/19 at 23:30; Stop 05/21/19 at 09:36; Status DC Acetaminophen (Tylenol) 650 mg PRN Q4HRS PRN PO FEVER; Start 05/20/19 at 23:30; Stop 05/21/19 at 09:36; Status DC Acetaminophen/ Hydrocodone Bitart (Lortab 5/325) 1 tab PRN Q4HRS PRN PO PAIN Last administered on 05/21/19at 03:14; Start 05/21/19 at 02:30 Morphine Sulfate (Morphine Sulfate) 2 mg PRN Q3HRS PRN IV PAIN Last administered on 05/21/19at 08:25; Start 05/21/19 at 02:30 Albuterol/ Ipratropium (Duoneb) 3 ml RTQID NEB ; Start 05/21/19 at 12:00 Ondansetron HCl (Zofran) 4 mg PRN Q6HRS PRN IVP NAUSEA/VOMITING; Start 05/21/19 at 09:30 Acetaminophen (Tylenol) 500 mg PRN Q6HRS PRN PO MILD PAIN / TEMP; Start 05/21/19 at 09:30 Acetaminophen/ Codeine Phosphate (Tylenol #3) 1 tab PRN Q6HRS PRN PO MODERATE PAIN; Start 05/21/19 at 09:30 Alprazolam (Xanax) 0.25 mg PRN Q8HRS PRN PO ANXIETY / AGITATION; Start 05/21/19 at 09:30 Calcium Carbonate/ Glycine (Tums) 500 mg PRN AFTMEALHC PRN PO INDIGESTION; Start 05/21/19 at 09:30 Guaifenesin (Robitussin Dm) 10 ml PRN Q6HRS PRN PO COUGH; Start 05/21/19 at 09:30 Alprazolam (Xanax) 1 mg DAILY PRN PO ANXIETY; Start 05/21/19 at 09:30; Status UNV Aspirin (Evaristo Aspirin) 325 mg DAILY PO ; Start 05/21/19 at 10:00 Cyclobenzaprine HCl (Flexeril) 10 mg TID PO ; Start 05/21/19 at 14:00 Fluticasone Propionate (Flonase) 2 spray DAILY NS ; Start 05/21/19 at 10:00 Levothyroxine Sodium (Synthroid) 125 mcg DAILY06 PO ; Start 05/21/19 at 10:00 Niacin (Slo-Niacin) 500 mg HS PO ; Start 05/21/19 at 21:00 Trazodone HCl (Desyrel) 50 mg DAILY PRN PO ; Start 05/21/19 at 09:30; Status UNV Non-Formulary Medication (Albuterol Sulfate (Albuterol Sulfate Neb Soln)) 1 vial PRN QID PRN NEB copd; Start 05/21/19 at 09:30; Status UNV Non-Formulary Medication (Albuterol Sulfate (Proventil Hfa)) 2 puff Q4-6HRS PRN IH WHEEZING; Start 05/21/19 at 09:30; Status UNV Non-Formulary Medication (Fluoxetine Hcl ) 40 mg DAILY PO ; Start 05/22/19 at 09:00; Status UNV Non-Formulary Medication (Losartan Potassium ) 100 mg HS PO ; Start 05/21/19 at 21:00; Status UNV Non-Formulary Medication (Omeprazole ) 1 cap DAILY PO ; Start 05/22/19 at 09:00; Status UNV Non-Formulary Medication (Tiotropium Dalton (Spiriva)) 1 cap DAILY IH ; Start 05/22/19 at 09:00; Status UNV Non-Formulary Medication (Zolpidem Tartrate ) 10 mg PRN QHS PRN PO INSOMNIA; Start 05/21/19 at 09:30; Status UNV Non-Formulary Medication ([Slow Mag] ) 238 mg HS PO ; Start 05/21/19 at 21:00; Status UNV Non-Formulary Medication ([Xysol] ) 1 tab HS PO ; Start 05/21/19 at 21:00; Status UNV Active Scripts Active Albuterol Sulfate Neb Soln (Albuterol Sulfate) 0.63 Mg/3 Ml Vial.neb 1 Vial NEB PRN QID PRN 3 Days Spiriva (Tiotropium Dalton) 18 Mcg Cap.w.dev 1 Cap IH DAILY 30 Days Proventil Hfa (Albuterol Sulfate) 6.7 Gm Hfa.aer.ad 2 Puff IH Q4-6HRS PRN MDD 6 puff 7 Days Reported Hydrocodone-Apap 5-325 (Hydrocodone Bit/Acetaminophen) 1 Tab Tablet 1 Tab PO PRN Q4HRS PRN Aspirin 325 Mg Tablet 1 Tab PO DAILY LAST DOSE GIVEN: DATE:04/15/17 TIME:9:00 a.m. Omeprazole 20 Mg Capsule.dr 1 Cap PO DAILY LAST DOSE GIVEN: DATE:04/15/17 TIME:9:00 a.m. Fluticasone Propionate Nasal [place] (Fluticasone Propionate) 16 Gm [place].susp 2 [place] NS DAILY LAST DOSE GIVEN: DATE:04/15/17 TIME:9:00 a.m. Losartan Potassium 100 Mg Tablet 100 Mg PO HS [Xysol] 1 Tab PO HS [Slow Mag] 325 238 Mg PO HS Trazodone Hcl 50 Mg Tablet 50 Mg PO DAILY PRN Cyclobenzaprine Hcl 10 Mg Tablet 1 Tab PO TID LAST DOSE GIVEN: DATE:04/15/17 TIME:2:00 p.m. Niaspan (Niacin) 500 Mg Tab.er.24h 500 Mg PO HS Fish Oil ([place]-3 Fatty Acids) 500 Mg Capsule.dr 1,400 Mg PO Fluoxetine Hcl 20 Mg Tablet 40 Mg PO DAILY LAST DOSE GIVEN: DATE:04/15/17 TIME: 9:00 a.m. Zolpidem Tartrate 10 Mg Tablet 10 Mg PO PRN QHS PRN Levothyroxine Sodium 125 Mcg Tablet 125 Mcg PO DAILY LAST DOSE GIVEN: DATE:04/15/17 TIME:7:30 a.m. Alprazolam 1 Mg Tablet 1 Mg PO DAILY PRN Meds not given this hospital admission. May resume home medications as approved by Physician. Allergies Allergies: Coded Allergies: prochlorperazine (Verified Adverse Reaction, Severe, 04/30/19) SKIN CRAWLING Xevdvwz-Czy-Zua Reductase Inhibitor (Verified Adverse Reaction, Intermediate, INCREASED LIVER ENZYMES, 03/29/19) ROS Review of System she denies currently just SOA on exertion and weak Physical Exam General: No acute distress HEENT: Atraumatic, PERRLA, EOMI, Mucous membr. moist/pink Lungs: Clear to auscultation, Normal air movement, Other (no wheezing or crackles) Cardiovascular: S1, S2 Breasts: Normal, Rt breast nml w/o mass, Lt breast nml w/o mass, Nipples normal Abdomen: Normal bowel sounds, Soft, No tenderness, No hepatosplenomegaly, No masses Extremities: No clubbing, No cyanosis, No edema, Normal pulses, No tenderness/swelling Skin: No rashes, No breakdown, No significant lesion Neuro: Normal gait, Normal speech, Strength at 5/5 X4 ext, Normal tone, Sensation intact, Cranial nerves 3-12 NL, Reflexes 2+ Psych/Mental Status: Mental status NL, Mood NL Vitals Vitals Vital Signs Date Time Temp Pulse Resp B/P (MAP) Pulse Ox O2 Delivery O2 Flow Rate FiO2 11/4/19 08:25 99 Nasal Cannula 2.0 05/21/19 07:58 97.5 68 18 111/50 (70) 97.5 Labs Labs Laboratory Tests Test 05/20/19 21:50 05/21/19 03:35 White Blood Count 6.8 x10^3/uL (4.0-11.0) 6.9 x10^3/uL (4.0-11.0) Red Blood Count 4.59 x10^6/uL (3.50-5.40) 4.25 x10^6/uL (3.50-5.40) Hemoglobin 12.7 g/dL (12.0-15.5) 11.7 g/dL (12.0-15.5) Hematocrit 38.3 % (36.0-47.0) 36.1 % (36.0-47.0) Mean Corpuscular Volume 84 fL (79-100) 85 fL (79-100) Mean Corpuscular Hemoglobin 28 pg (25-35) 28 pg (25-35) Mean Corpuscular Hemoglobin Concent 33 g/dL (31-37) 33 g/dL (31-37) Red Cell Distribution Width 13.6 % (11.5-14.5) 13.4 % (11.5-14.5) Platelet Count 203 x10^3/uL (140-400) 192 x10^3/uL (140-400) Neutrophils (%) (Auto) 67 % (31-73) 66 % (31-73) Lymphocytes (%) (Auto) 24 % (24-48) 24 % (24-48) Monocytes (%) (Auto) 6 % (0-9) 7 % (0-9) Eosinophils (%) (Auto) 2 % (0-3) 2 % (0-3) Basophils (%) (Auto) 1 % (0-3) 1 % (0-3) Neutrophils # (Auto) 4.5 x10^3/uL (1.8-7.7) 4.5 x10^3/uL (1.8-7.7) Lymphocytes # (Auto) 1.6 x10^3/uL (1.0-4.8) 1.7 x10^3/uL (1.0-4.8) Monocytes # (Auto) 0.4 x10^3/uL (0.0-1.1) 0.5 x10^3/uL (0.0-1.1) Eosinophils # (Auto) 0.2 x10^3/uL (0.0-0.7) 0.2 x10^3/uL (0.0-0.7) Basophils # (Auto) 0.1 x10^3/uL (0.0-0.2) 0.1 x10^3/uL (0.0-0.2) D-Dimer (Kanika) < 0.27 ug/mlFEU Sodium Level 143 mmol/L (136-145) 143 mmol/L (136-145) Potassium Level 3.9 mmol/L (3.5-5.1) 4.0 mmol/L (3.5-5.1) Chloride Level 106 mmol/L (98-107) 107 mmol/L (98-107) Carbon Dioxide Level 27 mmol/L (21-32) 27 mmol/L (21-32) Anion Gap 10 (6-14) 9 (6-14) Blood Urea Nitrogen 11 mg/dL (7-20) 12 mg/dL (7-20) Creatinine 1.0 mg/dL (0.6-1.0) 0.9 mg/dL (0.6-1.0) Estimated GFR (Cockcroft-Gault) 56.6 63.9 BUN/Creatinine Ratio 11 (6-20) 13 (6-20) Glucose Level 106 mg/dL (70-99) 101 mg/dL (70-99) Calcium Level 9.5 mg/dL (8.5-10.1) 9.2 mg/dL (8.5-10.1) Total Bilirubin 0.3 mg/dL (0.2-1.0) 0.3 mg/dL (0.2-1.0) Aspartate Amino Transf (AST/SGOT) 35 U/L (15-37) 35 U/L (15-37) Alanine Aminotransferase (ALT/SGPT) 52 U/L (14-59) 41 U/L (14-59) Alkaline Phosphatase 148 U/L (46-116) 145 U/L (46-116) Troponin I Quantitative < 0.017 ng/mL (0.000-0.055) NR-Lvn-[id number]-Type Natriuretic Peptide 97 pg/mL (0-124) Total Protein 6.8 g/dL (6.4-8.2) 6.4 g/dL (6.4-8.2) Albumin 3.3 g/dL (3.4-5.0) 3.0 g/dL (3.4-5.0) Albumin/Globulin Ratio 0.9 (1.0-1.7) 0.9 (1.0-1.7) Laboratory Tests Test 05/20/19 21:50 05/21/19 03:35 White Blood Count 6.8 x10^3/uL (4.0-11.0) 6.9 x10^3/uL (4.0-11.0) Red Blood Count 4.59 x10^6/uL (3.50-5.40) 4.25 x10^6/uL (3.50-5.40) Hemoglobin 12.7 g/dL (12.0-15.5) 11.7 g/dL (12.0-15.5) Hematocrit 38.3 % (36.0-47.0) 36.1 % (36.0-47.0) Mean Corpuscular Volume 84 fL (79-100) 85 fL (79-100) Mean Corpuscular Hemoglobin 28 pg (25-35) 28 pg (25-35) Mean Corpuscular Hemoglobin Concent 33 g/dL (31-37) 33 g/dL (31-37) Red Cell Distribution Width 13.6 % (11.5-14.5) 13.4 % (11.5-14.5) Platelet Count 203 x10^3/uL (140-400) 192 x10^3/uL (140-400) Neutrophils (%) (Auto) 67 % (31-73) 66 % (31-73) Lymphocytes (%) (Auto) 24 % (24-48) 24 % (24-48) Monocytes (%) (Auto) 6 % (0-9) 7 % (0-9) Eosinophils (%) (Auto) 2 % (0-3) 2 % (0-3) Basophils (%) (Auto) 1 % (0-3) 1 % (0-3) Neutrophils # (Auto) 4.5 x10^3/uL (1.8-7.7) 4.5 x10^3/uL (1.8-7.7) Lymphocytes # (Auto) 1.6 x10^3/uL (1.0-4.8) 1.7 x10^3/uL (1.0-4.8) Monocytes # (Auto) 0.4 x10^3/uL (0.0-1.1) 0.5 x10^3/uL (0.0-1.1) Eosinophils # (Auto) 0.2 x10^3/uL (0.0-0.7) 0.2 x10^3/uL (0.0-0.7) Basophils # (Auto) 0.1 x10^3/uL (0.0-0.2) 0.1 x10^3/uL (0.0-0.2) D-Dimer (Kanika) < 0.27 ug/mlFEU Sodium Level 143 mmol/L (136-145) 143 mmol/L (136-145) Potassium Level 3.9 mmol/L (3.5-5.1) 4.0 mmol/L (3.5-5.1) Chloride Level 106 mmol/L (98-107) 107 mmol/L (98-107) Carbon Dioxide Level 27 mmol/L (21-32) 27 mmol/L (21-32) Anion Gap 10 (6-14) 9 (6-14) Blood Urea Nitrogen 11 mg/dL (7-20) 12 mg/dL (7-20) Creatinine 1.0 mg/dL (0.6-1.0) 0.9 mg/dL (0.6-1.0) Estimated GFR (Cockcroft-Gault) 56.6 63.9 BUN/Creatinine Ratio 11 (6-20) 13 (6-20) Glucose Level 106 mg/dL (70-99) 101 mg/dL (70-99) Calcium Level 9.5 mg/dL (8.5-10.1) 9.2 mg/dL (8.5-10.1) Total Bilirubin 0.3 mg/dL (0.2-1.0) 0.3 mg/dL (0.2-1.0) Aspartate Amino Transf (AST/SGOT) 35 U/L (15-37) 35 U/L (15-37) Alanine Aminotransferase (ALT/SGPT) 52 U/L (14-59) 41 U/L (14-59) Alkaline Phosphatase 148 U/L (46-116) 145 U/L (46-116) Troponin I Quantitative < 0.017 ng/mL (0.000-0.055) DD-Hqb-Q-Type Natriuretic Peptide 97 pg/mL (0-124) Total Protein 6.8 g/dL (6.4-8.2) 6.4 g/dL (6.4-8.2) Albumin 3.3 g/dL (3.4-5.0) 3.0 g/dL (3.4-5.0) Albumin/Globulin Ratio 0.9 (1.0-1.7) 0.9 (1.0-1.7) VTE Prophylaxis Ordered VTE Prophylaxis Devices: Yes VTE Pharmacological Prophylaxi: Yes Assessment/Plan Assessment/Plan SOA< normal CXR normal labs Obesity - BMI 55 - could be all obesity hypoventilation syndrome Recent dx PBC DYslipidemia, HTN, hx bilteral TKA - chronic stable PLAN: GEt pulmo, needs to lose weight OK to eat and ambulate Add pT OT I have reconciled home meds OK to transfer out to non tele bed REquests GI DR Payne to see while she admitted FULL CODE CASANDRA MIDDLETON MD May 21, 2019 09:52
[2019-05-21] MEDS ORDERED: ALBUTEROL SULFATE 2.5 MG/3 ML NEBU. NEB PRN (10:00)
[2019-05-21 11:19] VITALS: BP 102/53
[2019-05-21] MEDS: PANTOPRAZOLE 40 MG TABLET.DR. PO SCH (11:57)
[2019-05-21] MEDS: FLUoxetine HCL 20 MG CAPSULE PO SCH (11:57)
[2019-05-21] MEDS: ASPIRIN 325 MG TABLET PO SCH (11:58)
[2019-05-21] MEDS: FLUTICASONE 50MCG/NASAL SPRAY 16GM BOTTLE. NS SCH (11:58)
[2019-05-21] MEDS: LEVOTHYROXINE 125 MCG TABLET PO SCH (11:58)
[2019-05-21] MEDS ORDERED: IPRATRPIUM/ALBUTEROL 0.5/2.5MG 3 ML NEBU. NEB SCH (12:00)
[2019-05-21] MEDS: IPRATRPIUM/ALBUTEROL 0.5/2.5MG 3 ML NEBU. NEB SCH ×3 (12:45→20:05)
--- NOTE | 2019-05-21 15:17 | NUR ---
SW following pt for dc planning. Chart reviewed and pt lives at home with Spouse. Pulmonary following pt. SW will be available as needed.
--- NOTE | 2019-05-21 15:20 | NUR ---
pt was sitting on the side of the bed with a blank stare. She did not know her name or where she was at. Asked her to repeat words from NIH scale and her speech was slurred. Code stroke was called. Placed pt back on the monitor and increased her Oxygen to 3 L for stats to be over 94%. Stroke team took over care from there.
--- NOTE | 2019-05-21 15:43 | RAD ---
EXAM: Chest, single view. HISTORY: Mental status changes. COMPARISON: 05/20/2019 FINDINGS: A frontal view of the chest is obtained. There is diffuse increased interstitial opacity likely due to pulmonary congestion. There is suspected superimposed basilar atelectasis. No pleural effusion or pneumothorax is seen. The heart is normal in size for portable technique. IMPRESSION: Increase in diffuse interstitial infiltrate. Correlate for congestion. Electronically signed by: Rosa M Silveira MD (05/21/2019 3:40 PM) [place] [id number]
[2019-05-21 15:52] VITALS: BP_SYST 129; BP_SYST 144; BP_DIAS 55; BP_DIAS 66
--- NOTE | 2019-05-21 15:53 | PDOC ---
G I PROGRESS NOTE Review of Relevant I have reviewed the following items radha (where applicable) has been applied. Labs Laboratory Tests Test 05/20/19 21:50 05/21/19 03:35 White Blood Count 6.8 x10^3/uL (4.0-11.0) 6.9 x10^3/uL (4.0-11.0) Red Blood Count 4.59 x10^6/uL (3.50-5.40) 4.25 x10^6/uL (3.50-5.40) Hemoglobin 12.7 g/dL (12.0-15.5) 11.7 g/dL (12.0-15.5) Hematocrit 38.3 % (36.0-47.0) 36.1 % (36.0-47.0) Mean Corpuscular Volume 84 fL (79-100) 85 fL (79-100) Mean Corpuscular Hemoglobin 28 pg (25-35) 28 pg (25-35) Mean Corpuscular Hemoglobin Concent 33 g/dL (31-37) 33 g/dL (31-37) Red Cell Distribution Width 13.6 % (11.5-14.5) 13.4 % (11.5-14.5) Platelet Count 203 x10^3/uL (140-400) 192 x10^3/uL (140-400) Neutrophils (%) (Auto) 67 % (31-73) 66 % (31-73) Lymphocytes (%) (Auto) 24 % (24-48) 24 % (24-48) Monocytes (%) (Auto) 6 % (0-9) 7 % (0-9) Eosinophils (%) (Auto) 2 % (0-3) 2 % (0-3) Basophils (%) (Auto) 1 % (0-3) 1 % (0-3) Neutrophils # (Auto) 4.5 x10^3/uL (1.8-7.7) 4.5 x10^3/uL (1.8-7.7) Lymphocytes # (Auto) 1.6 x10^3/uL (1.0-4.8) 1.7 x10^3/uL (1.0-4.8) Monocytes # (Auto) 0.4 x10^3/uL (0.0-1.1) 0.5 x10^3/uL (0.0-1.1) Eosinophils # (Auto) 0.2 x10^3/uL (0.0-0.7) 0.2 x10^3/uL (0.0-0.7) Basophils # (Auto) 0.1 x10^3/uL (0.0-0.2) 0.1 x10^3/uL (0.0-0.2) D-Dimer (Kanika) < 0.27 ug/mlFEU Sodium Level 143 mmol/L (136-145) 143 mmol/L (136-145) Potassium Level 3.9 mmol/L (3.5-5.1) 4.0 mmol/L (3.5-5.1) Chloride Level 106 mmol/L (98-107) 107 mmol/L (98-107) Carbon Dioxide Level 27 mmol/L (21-32) 27 mmol/L (21-32) Anion Gap 10 (6-14) 9 (6-14) Blood Urea Nitrogen 11 mg/dL (7-20) 12 mg/dL (7-20) Creatinine 1.0 mg/dL (0.6-1.0) 0.9 mg/dL (0.6-1.0) Estimated GFR (Cockcroft-Gault) 56.6 63.9 BUN/Creatinine Ratio 11 (6-20) 13 (6-20) Glucose Level 106 mg/dL (70-99) 101 mg/dL (70-99) Calcium Level 9.5 mg/dL (8.5-10.1) 9.2 mg/dL (8.5-10.1) Total Bilirubin 0.3 mg/dL (0.2-1.0) 0.3 mg/dL (0.2-1.0) Aspartate Amino Transf (AST/SGOT) 35 U/L (15-37) 35 U/L (15-37) Alanine Aminotransferase (ALT/SGPT) 52 U/L (14-59) 41 U/L (14-59) Alkaline Phosphatase 148 U/L (46-116) 145 U/L (46-116) Troponin I Quantitative < 0.017 ng/mL (0.000-0.055) RS-Rmt-N-Type Natriuretic Peptide 97 pg/mL (0-124) Total Protein 6.8 g/dL (6.4-8.2) 6.4 g/dL (6.4-8.2) Albumin 3.3 g/dL (3.4-5.0) 3.0 g/dL (3.4-5.0) Albumin/Globulin Ratio 0.9 (1.0-1.7) 0.9 (1.0-1.7) Laboratory Tests Test 05/20/19 21:50 05/21/19 03:35 White Blood Count 6.8 x10^3/uL (4.0-11.0) 6.9 x10^3/uL (4.0-11.0) Red Blood Count 4.59 x10^6/uL (3.50-5.40) 4.25 x10^6/uL (3.50-5.40) Hemoglobin 12.7 g/dL (12.0-15.5) 11.7 g/dL (12.0-15.5) Hematocrit 38.3 % (36.0-47.0) 36.1 % (36.0-47.0) Mean Corpuscular Volume 84 fL (79-100) 85 fL (79-100) Mean Corpuscular Hemoglobin 28 pg (25-35) 28 pg (25-35) Mean Corpuscular Hemoglobin Concent 33 g/dL (31-37) 33 g/dL (31-37) Red Cell Distribution Width 13.6 % (11.5-14.5) 13.4 % (11.5-14.5) Platelet Count 203 x10^3/uL (140-400) 192 x10^3/uL (140-400) Neutrophils (%) (Auto) 67 % (31-73) 66 % (31-73) Lymphocytes (%) (Auto) 24 % (24-48) 24 % (24-48) Monocytes (%) (Auto) 6 % (0-9) 7 % (0-9) Eosinophils (%) (Auto) 2 % (0-3) 2 % (0-3) Basophils (%) (Auto) 1 % (0-3) 1 % (0-3) Neutrophils # (Auto) 4.5 x10^3/uL (1.8-7.7) 4.5 x10^3/uL (1.8-7.7) Lymphocytes # (Auto) 1.6 x10^3/uL (1.0-4.8) 1.7 x10^3/uL (1.0-4.8) Monocytes # (Auto) 0.4 x10^3/uL (0.0-1.1) 0.5 x10^3/uL (0.0-1.1) Eosinophils # (Auto) 0.2 x10^3/uL (0.0-0.7) 0.2 x10^3/uL (0.0-0.7) Basophils # (Auto) 0.1 x10^3/uL (0.0-0.2) 0.1 x10^3/uL (0.0-0.2) D-Dimer (Kanika) < 0.27 ug/mlFEU Sodium Level 143 mmol/L (136-145) 143 mmol/L (136-145) Potassium Level 3.9 mmol/L (3.5-5.1) 4.0 mmol/L (3.5-5.1) Chloride Level 106 mmol/L (98-107) 107 mmol/L (98-107) Carbon Dioxide Level 27 mmol/L (21-32) 27 mmol/L (21-32) Anion Gap 10 (6-14) 9 (6-14) Blood Urea Nitrogen 11 mg/dL (7-20) 12 mg/dL (7-20) Creatinine 1.0 mg/dL (0.6-1.0) 0.9 mg/dL (0.6-1.0) Estimated GFR (Cockcroft-Gault) 56.6 63.9 BUN/Creatinine Ratio 11 (6-20) 13 (6-20) Glucose Level 106 mg/dL (70-99) 101 mg/dL (70-99) Calcium Level 9.5 mg/dL (8.5-10.1) 9.2 mg/dL (8.5-10.1) Total Bilirubin 0.3 mg/dL (0.2-1.0) 0.3 mg/dL (0.2-1.0) Aspartate Amino Transf (AST/SGOT) 35 U/L (15-37) 35 U/L (15-37) Alanine Aminotransferase (ALT/SGPT) 52 U/L (14-59) 41 U/L (14-59) Alkaline Phosphatase 148 U/L (46-116) 145 U/L (46-116) Troponin I Quantitative < 0.017 ng/mL (0.000-0.055) WQ-Yad-N-Type Natriuretic Peptide 97 pg/mL (0-124) Total Protein 6.8 g/dL (6.4-8.2) 6.4 g/dL (6.4-8.2) Albumin 3.3 g/dL (3.4-5.0) 3.0 g/dL (3.4-5.0) Albumin/Globulin Ratio 0.9 (1.0-1.7) 0.9 (1.0-1.7) Medications Current Medications Albuterol/ Ipratropium (Duoneb) 3 ml 1X ONCE NEB Last administered on 05/20/19at 22:02; Start 05/20/19 at 22:00; Stop 05/20/19 at 22:02; Status DC Furosemide (Lasix) 60 mg 1X ONCE IVP ; Start 05/20/19 at 23:30; Stop 05/20/19 at 23:31; Status DC Ondansetron HCl (Zofran) 4 mg PRN Q8HRS PRN IV NAUSEA/VOMITING; Start 05/20/19 at 23:30; Stop 05/21/19 at 09:36; Status DC Acetaminophen (Tylenol) 650 mg PRN Q4HRS PRN PO FEVER; Start 05/20/19 at 23:30; Stop 05/21/19 at 09:36; Status DC Acetaminophen/ Hydrocodone Bitart (Lortab 5/325) 1 tab PRN Q4HRS PRN PO PAIN Last administered on 05/21/19at 03:14; Start 05/21/19 at 02:30 Morphine Sulfate (Morphine Sulfate) 2 mg PRN Q3HRS PRN IV PAIN Last administered on 05/21/19at 12:02; Start 05/21/19 at 02:30 Albuterol/ Ipratropium (Duoneb) 3 ml RTQID NEB ; Start 05/21/19 at 12:00; Stop 05/21/19 at 09:58; Status DC Ondansetron HCl (Zofran) 4 mg PRN Q6HRS PRN IVP NAUSEA/VOMITING; Start 05/21/19 at 09:30 Acetaminophen (Tylenol) 500 mg PRN Q6HRS PRN PO MILD PAIN / TEMP; Start at 09:30 Acetaminophen/ Codeine Phosphate (Tylenol #3) 1 tab PRN Q6HRS PRN PO MODERATE PAIN; Start 05/21/19 at 09:30 Alprazolam (Xanax) 0.25 mg PRN Q8HRS PRN PO ANXIETY / AGITATION; Start 05/21/19 at 09:30 Calcium Carbonate/ Glycine (Tums) 500 mg PRN AFTMEALHC PRN PO INDIGESTION; Start 05/21/19 at 09:30 Guaifenesin (Robitussin Dm) 10 ml PRN Q6HRS PRN PO COUGH; Start 05/21/19 at 09:30 Alprazolam (Xanax) 1 mg DAILY PRN PO ANXIETY; Start 05/21/19 at 09:30; Status UNV Aspirin (Evaristo Aspirin) 325 mg DAILY PO Last administered on 05/21/19at 11:58; Start 05/21/19 at 10:00 Cyclobenzaprine HCl (Flexeril) 10 mg TID PO ; Start 05/21/19 at 14:00 Fluticasone Propionate (Flonase) 2 spray DAILY NS Last administered on 05/21/19at 11:58; Start 05/21/19 at 10:00 Levothyroxine Sodium (Synthroid) 125 mcg DAILY06 PO Last administered on 05/21/19at 11:58; Start 05/21/19 at 10:00 Niacin (Slo-Niacin) 500 mg HS PO ; Start 05/21/19 at 21:00 Trazodone HCl (Desyrel) 50 mg PRN QHS PRN PO INSOMNIA; Start 05/21/19 at 09:45 Non-Formulary Medication (Albuterol Sulfate (Albuterol Sulfate Neb Soln)) 1 vial PRN QID PRN NEB copd; Start 05/21/19 at 09:30; Status UNV Non-Formulary Medication (Albuterol Sulfate (Proventil Hfa)) 2 puff Q4-6HRS PRN IH WHEEZING; Start 05/21/19 at 09:30; Status UNV Fluoxetine HCl (PROzac) 40 mg DAILY PO Last administered on 05/21/19at 11:57; Start 05/21/19 at 10:00 Losartan Potassium (Cozaar) 100 mg QHS PO ; Start 05/21/19 at 21:00 Pantoprazole Sodium (Protonix) 40 mg DAILYAC PO Last administered on 05/21/19at 11:57; Start 05/21/19 at 10:00 Non-Formulary Medication (Tiotropium [place] (Spiriva)) 1 cap DAILY IH ; Start 05/22/19 at 09:00; Status UNV Zolpidem Tartrate (Ambien) 5 mg PRN QHS PRN PO INSOMNIA, MAY REPEAT IN 1HR; Start 05/21/19 at 09:45 Magnesium Chloride (Mag Delay) 192 mg QHS PO ; Start 05/21/19 at 21:00 Cetirizine HCl (ZyrTEC) 10 mg QHS PO ; Start 05/21/19 at 21:00 Albuterol/ Ipratropium (Duoneb) 3 ml RTQID NEB Last administered on 05/21/19at 12:45; Start 05/21/19 at 12:00 Albuterol Sulfate (Ventolin Neb Soln) 2.5 mg PRN Q4HRS PRN NEB SHORTNESS OF BREATH; Start 05/21/19 at 10:00 Active Scripts Active Albuterol Sulfate Neb Soln (Albuterol Sulfate) 0.63 Mg/3 Ml Vial.neb 1 Vial NEB PRN QID PRN 3 Days Spiriva (Tiotropium [place]) 18 Mcg Cap.w.dev 1 Cap IH DAILY 30 Days Proventil Hfa (Albuterol Sulfate) 6.7 Gm Hfa.aer.ad 2 Puff IH Q4-6HRS PRN MDD 6 puff 7 Days Reported Hydrocodone-Apap 5-325 (Hydrocodone Bit/Acetaminophen) 1 Tab Tablet 1 Tab PO PRN Q4HRS PRN Aspirin 325 Mg Tablet 1 Tab PO DAILY LAST DOSE GIVEN: DATE:04/15/17 TIME:9:00 a.m. Omeprazole 20 Mg Capsule.dr 1 Cap PO DAILY LAST DOSE GIVEN: DATE:04/15/17 TIME:9:00 a.m. Fluticasone Propionate Nasal [place] (Fluticasone Propionate) 16 Gm [place].susp 2 [place] NS DAILY LAST DOSE GIVEN: DATE:04/15/17 TIME:9:00 a.m. Losartan Potassium 100 Mg Tablet 100 Mg PO HS [Xysol] 1 Tab PO HS [Slow Mag] 325 238 Mg PO HS Trazodone Hcl 50 Mg Tablet 50 Mg PO DAILY PRN Cyclobenzaprine Hcl 10 Mg Tablet 1 Tab PO TID LAST DOSE GIVEN: DATE:04/15/17 TIME:2:00 p.m. Niaspan (Niacin) 500 Mg Tab.er.24h 500 Mg PO HS Fish Oil ([place]-3 Fatty Acids) 500 Mg Capsule.dr 1,400 Mg PO Fluoxetine Hcl 20 Mg Tablet 40 Mg PO DAILY LAST DOSE GIVEN: DATE:04/15/17 TIME: 9:00 a.m. Zolpidem Tartrate 10 Mg Tablet 10 Mg PO PRN QHS PRN Levothyroxine Sodium 125 Mcg Tablet 125 Mcg PO DAILY LAST DOSE GIVEN: DATE:04/15/17 TIME:7:30 a.m. Alprazolam 1 Mg Tablet 1 Mg PO DAILY PRN Meds not given this hospital admission. May resume home medications as approved by Physician. Vitals/I & O Vital Sign - Last 24 Hours 05/20/19 05/20/19 05/20/19 05/20/19 21:25 22:02 22:26 22:56 Temp 98.0 98.0 Pulse 80 92 92 Resp 18 19 18 B/P (MAP) 158/66 (96) 109/52 (71) 102/67 (79) Pulse Ox 92 95 97 96 O2 Delivery Room Air Nasal Cannula Room Air Room Air O2 Flow Rate 2.0 2.0 2.0 05/20/19 05/20/19 05/21/19 05/21/19 23:26 23:56 01:05 03:14 Pulse 92 87 Resp 19 B/P (MAP) 102/53 (69) 108/53 (71) Pulse Ox 96 94 O2 Delivery Room Air Nasal Cannula Nasal Cannula O2 Flow Rate 2.0 2.0 2.0 05/21/19 05/21/19 05/21/19 05/21/19 04:53 07:58 08:00 08:25 Temp 97.5 97.5 Pulse 68 Resp 18 B/P (MAP) 111/50 (70) Pulse Ox 94 99 99 O2 Delivery Nasal Cannula Room Air Nasal Cannula Nasal Cannula O2 Flow Rate 2.0 2.0 2.0 05/21/19 05/21/19 05/21/19 05/21/19 08:55 11: 12:02 12:32 Temp 97.9 97.9 Pulse 70 Resp 18 B/P (MAP) 102/53 (69) Pulse Ox 98 98 98 98 O2 Delivery Nasal Cannula Room Air Nasal Cannula Nasal Cannula O2 Flow Rate 2.0 2.0 2.0 05/21/19 12:46 Pulse Ox 94 O2 Delivery Nasal Cannula O2 Flow Rate 2.0 Intake and Output 05/20/19 05/20/19 05/21/19 15:00 23:00 07:00 Intake Total 500 ml Balance 500 ml Problem List Problems Medical Problems: (1) Abdominal pain Status: Acute (2) Atypical chest pain Status: Acute (3) HTN (hypertension) Status: Chronic (4) SOB (shortness of breath) Status: Acute Assessment Out of room. Being evaluated for possible CVA. Will consult tomorrow. Erika. RORO ELDER MD May 21, 2019 15:53
--- NOTE | 2019-05-21 16:03 | RAD ---
EXAM: CT HEAD WITHOUT CONTRAST. HISTORY: Code stroke. Altered mental status, right facial droop. TECHNIQUE: Computed tomography of the head was performed without intravenous contrast. *One or more of the following individualized dose reduction techniques were utilized for this examination: 1. Automated exposure control. 2. Adjustment of the mA and/or kV according to patient size. 3. Use of iterative reconstruction technique. COMPARISON: None. FINDINGS: There is no intracranial hemorrhage. Carrasco-white differentiation is preserved. The ventricles are normal in size and position. The visualized paranasal sinuses appear clear. The orbits are unremarkable. The temporal bones are unremarkable. The calvarium reveals no suspicious lesions. IMPRESSION: 1. No acute intracranial findings. These findings were called to Norberto by Keith Jeff on 05/21/2019 at 3:25 PM. FOR INTERNAL CODING PURPOSES RESULT CODE: (C) Electronically signed by: Colette Jeff MD (05/21/2019 4:00 PM) [facility]
--- NOTE | 2019-05-21 17:03 | PDOC ---
PULMONARY PROGRESS NOTES Vitals Vital Signs Date Time Temp Pulse Resp B/P (MAP) Pulse Ox O2 Delivery O2 Flow Rate FiO2 05/21/19 15:52 98.4 84 18 144/55 (84) 91 Room Air 98.4 05/21/19 12:46 2.0 General: Alert, No acute distress Lungs: Clear Cardiovascular: S1, S2 Abdomen: Soft, Non-tender Extremities: No Edema, Other Labs Laboratory Tests Test 05/20/19 21:50 05/21/19 03:35 White Blood Count 6.8 x10^3/uL (4.0-11.0) 6.9 x10^3/uL (4.0-11.0) Red Blood Count 4.59 x10^6/uL (3.50-5.40) 4.25 x10^6/uL (3.50-5.40) Hemoglobin 12.7 g/dL (12.0-15.5) 11.7 g/dL (12.0-15.5) Hematocrit 38.3 % (36.0-47.0) 36.1 % (36.0-47.0) Mean Corpuscular Volume 84 fL (79-100) 85 fL (79-100) Mean Corpuscular Hemoglobin 28 pg (25-35) 28 pg (25-35) Mean Corpuscular Hemoglobin Concent 33 g/dL (31-37) 33 g/dL (31-37) Red Cell Distribution Width 13.6 % (11.5-14.5) 13.4 % (11.5-14.5) Platelet Count 203 x10^3/uL (140-400) 192 x10^3/uL (140-400) Neutrophils (%) (Auto) 67 % (31-73) 66 % (31-73) Lymphocytes (%) (Auto) 24 % (24-48) 24 % (24-48) Monocytes (%) (Auto) 6 % (0-9) 7 % (0-9) Eosinophils (%) (Auto) 2 % (0-3) 2 % (0-3) Basophils (%) (Auto) 1 % (0-3) 1 % (0-3) Neutrophils # (Auto) 4.5 x10^3/uL (1.8-7.7) 4.5 x10^3/uL (1.8-7.7) Lymphocytes # (Auto) 1.6 x10^3/uL (1.0-4.8) 1.7 x10^3/uL (1.0-4.8) Monocytes # (Auto) 0.4 x10^3/uL (0.0-1.1) 0.5 x10^3/uL (0.0-1.1) Eosinophils # (Auto) 0.2 x10^3/uL (0.0-0.7) 0.2 x10^3/uL (0.0-0.7) Basophils # (Auto) 0.1 x10^3/uL (0.0-0.2) 0.1 x10^3/uL (0.0-0.2) D-Dimer (Kanika) < 0.27 ug/mlFEU Sodium Level 143 mmol/L (136-145) 143 mmol/L (136-145) Potassium Level 3.9 mmol/L (3.5-5.1) 4.0 mmol/L (3.5-5.1) Chloride Level 106 mmol/L (98-107) 107 mmol/L (98-107) Carbon Dioxide Level 27 mmol/L (21-32) 27 mmol/L (21-32) Anion Gap 10 (6-14) 9 (6-14) Blood Urea Nitrogen 11 mg/dL (7-20) 12 mg/dL (7-20) Creatinine 1.0 mg/dL (0.6-1.0) 0.9 mg/dL (0.6-1.0) Estimated GFR (Cockcroft-Gault) 56.6 63.9 BUN/Creatinine Ratio 11 (6-20) 13 (6-20) Glucose Level 106 mg/dL (70-99) 101 mg/dL (70-99) Calcium Level 9.5 mg/dL (8.5-10.1) 9.2 mg/dL (8.5-10.1) Total Bilirubin 0.3 mg/dL (0.2-1.0) 0.3 mg/dL (0.2-1.0) Aspartate Amino Transf (AST/SGOT) 35 U/L (15-37) 35 U/L (15-37) Alanine Aminotransferase (ALT/SGPT) 52 U/L (14-59) 41 U/L (14-59) Alkaline Phosphatase 148 U/L (46-116) 145 U/L (46-116) Troponin I Quantitative < 0.017 ng/mL (0.000-0.055) GT-Tys-R-Type Natriuretic Peptide 97 pg/mL (0-124) Total Protein 6.8 g/dL (6.4-8.2) 6.4 g/dL (6.4-8.2) Albumin 3.3 g/dL (3.4-5.0) 3.0 g/dL (3.4-5.0) Albumin/Globulin Ratio 0.9 (1.0-1.7) 0.9 (1.0-1.7) Laboratory Tests Test 05/20/19 21:50 05/21/19 03:35 White Blood Count 6.8 x10^3/uL (4.0-11.0) 6.9 x10^3/uL (4.0-11.0) Red Blood Count 4.59 x10^6/uL (3.50-5.40) 4.25 x10^6/uL (3.50-5.40) Hemoglobin 12.7 g/dL (12.0-15.5) 11.7 g/dL (12.0-15.5) Hematocrit 38.3 % (36.0-47.0) 36.1 % (36.0-47.0) Mean Corpuscular Volume 84 fL (79-100) 85 fL (79-100) Mean Corpuscular Hemoglobin 28 pg (25-35) 28 pg (25-35) Mean Corpuscular Hemoglobin Concent 33 g/dL (31-37) 33 g/dL (31-37) Red Cell Distribution Width 13.6 % (11.5-14.5) 13.4 % (11.5-14.5) Platelet Count 203 x10^3/uL (140-400) 192 x10^3/uL (140-400) Neutrophils (%) (Auto) 67 % (31-73) 66 % (31-73) Lymphocytes (%) (Auto) 24 % (24-48) 24 % (24-48) Monocytes (%) (Auto) 6 % (0-9) 7 % (0-9) Eosinophils (%) (Auto) 2 % (0-3) 2 % (0-3) Basophils (%) (Auto) 1 % (0-3) 1 % (0-3) Neutrophils # (Auto) 4.5 x10^3/uL (1.8-7.7) 4.5 x10^3/uL (1.8-7.7) Lymphocytes # (Auto) 1.6 x10^3/uL (1.0-4.8) 1.7 x10^3/uL (1.0-4.8) Monocytes # (Auto) 0.4 x10^3/uL (0.0-1.1) 0.5 x10^3/uL (0.0-1.1) Eosinophils # (Auto) 0.2 x10^3/uL (0.0-0.7) 0.2 x10^3/uL (0.0-0.7) Basophils # (Auto) 0.1 x10^3/uL (0.0-0.2) 0.1 x10^3/uL (0.0-0.2) D-Dimer (Kanika) < 0.27 ug/mlFEU Sodium Level 143 mmol/L (136-145) 143 mmol/L (136-145) Potassium Level 3.9 mmol/L (3.5-5.1) 4.0 mmol/L (3.5-5.1) Chloride Level 106 mmol/L (98-107) 107 mmol/L (98-107) Carbon Dioxide Level 27 mmol/L (21-32) 27 mmol/L (21-32) Anion Gap 10 (6-14) 9 (6-14) Blood Urea Nitrogen 11 mg/dL (7-20) 12 mg/dL (7-20) Creatinine 1.0 mg/dL (0.6-1.0) 0.9 mg/dL (0.6-1.0) Estimated GFR (Cockcroft-Gault) 56.6 63.9 BUN/Creatinine Ratio 11 (6-20) 13 (6-20) Glucose Level 106 mg/dL (70-99) 101 mg/dL (70-99) Calcium Level 9.5 mg/dL (8.5-10.1) 9.2 mg/dL (8.5-10.1) Total Bilirubin 0.3 mg/dL (0.2-1.0) 0.3 mg/dL (0.2-1.0) Aspartate Amino Transf (AST/SGOT) 35 U/L (15-37) 35 U/L (15-37) Alanine Aminotransferase (ALT/SGPT) 52 U/L (14-59) 41 U/L (14-59) Alkaline Phosphatase 148 U/L (46-116) 145 U/L (46-116) Troponin I Quantitative < 0.017 ng/mL (0.000-0.055) JD-Lbd-M-Type Natriuretic Peptide 97 pg/mL (0-124) Total Protein 6.8 g/dL (6.4-8.2) 6.4 g/dL (6.4-8.2) Albumin 3.3 g/dL (3.4-5.0) 3.0 g/dL (3.4-5.0) Albumin/Globulin Ratio 0.9 (1.0-1.7) 0.9 (1.0-1.7) Medications Active Scripts Medications Dose Route/Sig Max Daily Dose Days Date Category Dose Instructions Albuterol Sulfate Neb Soln (Albuterol Sulfate) 0.63 Mg/3 Ml Vial.neb 1 Vial NEB PRN QID PRN 3 05/02/19 Rx Spiriva (Tiotropium Ronks) 18 Mcg Cap.w.dev 1 Cap IH DAILY 30 05/02/19 Rx Hydrocodone-Apap 5-325 (Hydrocodone Bit/Acetaminophen) 1 Tab Tablet 1 Tab PO PRN Q4HRS PRN 03/27/19 Reported Proventil Hfa (Albuterol Sulfate) 6.7 Gm Hfa.aer.ad 2 Puff IH Q4-6HRS PRN MDD 6 puff 7 04/16/18 Rx Aspirin 325 Mg Tablet 1 Tab PO DAILY 04/15/17 Reported LAST DOSE GIVEN: DATE:04/15/17 TIME:9:00 a.m. Omeprazole 20 Mg Capsule.dr 1 Cap PO DAILY 04/12/17 Reported LAST DOSE GIVEN: DATE:04/15/17 TIME:9:00 a.m. Fluticasone Propionate Nasal [place] (Fluticasone Propionate) 16 Gm [place].susp 2 [place] NS DAILY 04/12/17 Reported LAST DOSE GIVEN: DATE:04/15/17 TIME:9:00 a.m. Losartan Potassium 100 Mg Tablet 100 Mg PO HS 04/12/17 Reported [Xysol] 1 Tab PO HS 04/04/17 Reported [Slow Mag] 325 238 Mg PO HS 04/04/17 Reported Trazodone Hcl 50 Mg Tablet 50 Mg PO DAILY PRN 07/19/16 Reported Cyclobenzaprine Hcl 10 Mg Tablet 1 Tab PO TID 07/19/16 Reported LAST DOSE GIVEN: DATE:04/15/17 TIME:2:00 p.m. Niaspan (Niacin) 500 Mg Tab.er.24h 500 Mg PO HS 12/19/14 Reported Fish Oil ([place]-3 Fatty Acids) 500 Mg Capsule.dr 1,400 Mg PO 11/07/13 Reported Fluoxetine Hcl 20 Mg Tablet 40 Mg PO DAILY 11/07/13 Reported LAST DOSE GIVEN: DATE:04/15/17 TIME: 9:00 a.m. Zolpidem Tartrate 10 Mg Tablet 10 Mg PO PRN QHS PRN 11/07/13 Reported Levothyroxine Sodium 125 Mcg Tablet 125 Mcg PO DAILY 06/18/13 Reported LAST DOSE GIVEN: DATE:04/15/17 TIME:7:30 a.m. Alprazolam 1 Mg Tablet 1 Mg PO DAILY PRN 06/18/13 Reported Meds not given this hospital admission. May resume home medications as approved by Physician. Impression . ACUTE COR PULMONALE ELMER M OBESITY SEE ORDERS BEN WASHINGTON MD May 21, 2019 17:03
[2019-05-21] MEDS ORDERED: FUROSEMIDE 40 MG/4 ML VIAL. IVP ONE (17:30)
--- NOTE | 2019-05-21 17:30 | NUR ---
Code Stroke note: Called to rm 662 at 1503 by staff for code stroke. Pt with eyes open and able to speak very slowly and with much concentration. Only able to state name.NIH done by staff(13). Lt sided weakness noted with Rt facial droop. VSS SR on monitor. BS 96. afebrile. Pt known to this nurse for previous code stroke on adm in April. Pt with HX migraine with stroke-like symptoms at that time. Difference is this time she denies any headache and Lt weakness as last time was rt weakness. Stat CThead done and reported as neg. Spoke with DR Palacio who ordered MRI brain w/o but unable to do for 1.5 hr as table in use. CTA brain then ordered but pt w/o IV access for CTA . Took approx 1.5 hr to access as PICC team nurse had to use US. By that time MRI was open and that was done and preliminary report called to Dr Palacio. Also By that time, pt symptoms were improving in that she could state full name and sentences came out quicker and clearer. Facial droop almost gone. at bedside and stated this had been happening much more freq at home. Staff will call DR Pacheco to update her. Pt to remain on 6So with tele.
--- NOTE | 2019-05-21 17:33 | RAD ---
MRI brain without contrast dated 05/21/2019. Comparison made to 12/19/2014. CLINICAL INDICATION: Code stroke. Altered mental status. Right facialdroop. TECHNIQUE: Routine multiple normal to its MR imaging performed. No contrast administered. FINDINGS: Ventricles and sulci are mildly prominent for age. No midline shift or mass effect. Minimal spotty hyperintense FLAIR signal abnormality in the deep/subcortical periventricular white matter. No hemorrhage or extra-axial collection. Posterior fossa and brainstem unremarkable. No evidence of restricted diffusion abnormality. Major intracranial flow-voids are present. Postcontrast imaging was not performed. Visualized paranasal sinuses and mastoid air cells are clear. No apparent calvarial abnormality. IMPRESSION: 1. No evidence of acute intracranial hemorrhage, mass or acute infarct. 2. Minimal spotty signal abnormality in the deep/subcortical periventricular white matter, nonspecific but likely related to chronic small vessel ischemic changes. Electronically signed by: Geoffrey Aburto MD (05/21/2019 5:31 PM) [facility]
[2019-05-21] MEDS: CYCLOBENZAPRINE 10 MG TABLET. PO SCH ×2 (18:51→21:00)
--- NOTE | 2019-05-21 19:05 | PDOC2 ---
NEUROLOGY CONSULT Date of Admission Date of Admission DATE: 05/21/19 TIME: 18:40 Reason for Consult Reason for Consult: IMPRESSION: Code stroke. Slurred and slowed speech. Right side facial drooping and left side weakness. Abdominal pain. Chest pain. SOB. Migraine headaches. HTN. HLD. Morbid obesity, BMI 55. Narcotic seeking. 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 No evidence of acute CVA this time after further neurological evaluation. RECOMMENDATIONS/PLAN: Continue ASA 325 mg daily. Patient declined Statin. Treat medical diseases. Lab: see orders. Weight reduction. Diet. Exercise. OT/PT. Discussed in a great detail with her and her at bedside on 05/21/19. Brain MRI w/o contrast Stat on 05/21/19: No acute CVA. History of Present Illness This is a 58-year-old female who presented to the Emergency Department of [facility] with complaints of chest pain, shortness of breath and she was admitted into the hospital for further evaluation. She has history of migraine headaches and CVA like symptoms in reid past and she said she received TPA 2 times before. She knew she had HLD but declined Statin. She asked for pain medication for her chest pain. Around 3:00 pm, she noted her nurse of her new symptoms of slurred speech, slowed speech, and left side weakness stating unable to brick picker items by her left fingers. She was coded stroke. However, further neurological evaluation ruled out acute stroke. She then stated that all of her stroke symptoms resolved. Past Medical History Cardiovascular: HTN, Hyperlipidemia Pulmonary: No pertinent hx CENTRAL NERVOUS SYSTEM: TIA GI: Diverticulosis, Hemorrhoids, Peptic Ulcer disease Heme/Onc: No pertinent hx Hepatobiliary: No pertinent hx Psych: Anxiety Musculoskeletal: Osteoarthritis Rheumatologic: Fibromyalgia Infectious disease: No pertinent hx Endocrine: Hypothyroidism Past Surgical History Appendectomy, Cholecystectomy, Total knee replacement, Tonsillectomy, Hysterectomy Family History Heart Disease, Hypertension Allergies Coded Allergies: Prochlorperazine (Verified Adverse Reaction, Severe, 04/30/19) SKIN CRAWLING Jkuoxdo-Nli-Qhv Reductase Inhibitor (Verified Adverse Reaction, Intermediate, INCREASED LIVER ENZYMES, 03/29/19) MEDICATIONS: Refer to MAR SOCIAL HISTORY: Lives at home. Denies current smoking, drinking, and illicit drug use. REVIEW OF SYSTEMS: Constitutional: Morbid obesity.. Head: No recent traumatic brain or head injury. Skin: No edema, or rash. Ear: No infection. Eyes: No vision loss or color blindness. Nose: No bleeding or purulent discharges. Hearing: No hearing decrease. Neck: No injury. Breast: No history of cancer, masses,or discharges. Cardiac: Chest pain. HTN, HLD. Pulmonary: No COPD. GI: No GI ulcer, GI bleeding. Urinary/genital: UTI. Endocrinologic: Morbid obesity. Skeletomuscular: Generalized weakness. Neurological: see HP. Psychiatric: Denies drug use/abuse. Otherwise, not [id number] review of systems. PHYSICAL EXAMINATION: General appearance is in subacute distress. HEENT: Normocephalic and nontraumatic. Eyes, nose, ears, and throat are unremarkable. Neck is supple. No lymphadenopathy. No bruits are heard over the carotid artery. No crepitus. Cardiovascular: S1, S2, regular rate and rhythm. Pulmonary: Clear to auscultation bilaterally. Abdomen: Bowel sounds are positive. Extremities: No rash, lesions, or edema. No restriction of range of motion NEUROLOGICAL EXAMINATION: Alert Talkative. No slurred speech or slowed speech appreciated at the time of neurological exam. Oriented to time, place and person. PERRL. EOMI. CN: no focal findings. Muscle tone: within normal. Muscle strength: 5 DTR: 0-1 duue to morbid obesity. Plantar reflex: Flexor response bilaterally Gait: At her baseline normal. Sensory exam: no abnormal findings. No cerebellar signs elicited. F-T-N test accurate. No drift noted in UE or LE. Current Medications Current Medications Current Medications Albuterol/ Ipratropium (Duoneb) 3 ml 1X ONCE NEB Last administered on 05/20/19at 22:02; Start 05/20/19 at 22:00; Stop 05/20/19 at 22:02; Status DC Furosemide (Lasix) 60 mg 1X ONCE IVP ; Start 05/20/19 at 23:30; Stop 05/20/19 at 23:31; Status DC Ondansetron HCl (Zofran) 4 mg PRN Q8HRS PRN IV NAUSEA/VOMITING; Start 05/20/19 at 23:30; Stop 05/21/19 at 09:36; Status DC Acetaminophen (Tylenol) 650 mg PRN Q4HRS PRN PO FEVER; Start 05/20/19 at 23:30; Stop 05/21/19 at 09:36; Status DC Acetaminophen/ Hydrocodone Bitart (Lortab 5/325) 1 tab PRN Q4HRS PRN PO SEVERE PAIN Last administered on 05/21/19at 03:14; Start 05/21/19 at 02:30 Morphine Sulfate (Morphine Sulfate) 2 mg PRN Q3HRS PRN IV PAIN Last administered on 05/21/19at 12:02; Start 05/21/19 at 02:30 Albuterol/ Ipratropium (Duoneb) 3 ml RTQID NEB ; Start 05/21/19 at 12:00; Stop 05/21/19 at 09:58; Status DC Ondansetron HCl (Zofran) 4 mg PRN Q6HRS PRN IVP NAUSEA/VOMITING; Start 05/21/19 at 09:30 Acetaminophen (Tylenol) 500 mg PRN Q6HRS PRN PO MILD PAIN / TEMP; Start 05/21/19 at 09:30 Acetaminophen/ Codeine Phosphate (Tylenol #3) 1 tab PRN Q6HRS PRN PO MODERATE PAIN; Start 05/21/19 at 09:30 Alprazolam (Xanax) 0.25 mg PRN Q8HRS PRN PO ANXIETY / AGITATION; Start 05/21/19 at 09:30 Calcium Carbonate/ Glycine (Tums) 500 mg PRN AFTMEALHC PRN PO INDIGESTION; Start 05/21/19 at 09:30 Guaifenesin (Robitussin Dm) 10 ml PRN Q6HRS PRN PO COUGH; Start 05/21/19 at 09:30 Alprazolam (Xanax) 1 mg DAILY PRN PO ANXIETY; Start 05/21/19 at 09:30; Status UNV Aspirin (Evaristo Aspirin) 325 mg DAILY PO Last administered on 05/21/19at 11:58; Start 05/21/19 at 10:00 Cyclobenzaprine HCl (Flexeril) 10 mg TID PO ; Start 05/21/19 at 14:00 Fluticasone Propionate (Flonase) 2 spray DAILY NS Last administered on 05/21/19at 11:58; Start 05/21/19 at 10:00 Levothyroxine Sodium (Synthroid) 125 mcg DAILY06 PO Last administered on 05/21/19at 11:58; Start 05/21/19 at 10:00 Niacin (Slo-Niacin) 500 mg HS PO ; Start 05/21/19 at 21:00 Trazodone HCl (Desyrel) 50 mg PRN QHS PRN PO INSOMNIA; Start 05/21/19 at 09:45 Non-Formulary Medication (Albuterol Sulfate (Albuterol Sulfate Neb Soln)) 1 vial PRN QID PRN NEB copd; Start 05/21/19 at 09:30; Status UNV Non-Formulary Medication (Albuterol Sulfate (Proventil Hfa)) 2 puff Q4-6HRS PRN IH WHEEZING; Start 05/21/19 at 09:30; Status UNV Fluoxetine HCl (PROzac) 40 mg DAILY PO Last administered on 05/21/19at 11:57; Start 05/21/19 at 10:00 Losartan Potassium (Cozaar) 100 mg QHS PO ; Start 05/21/19 at 21:00 Pantoprazole Sodium (Protonix) 40 mg DAILYAC PO Last administered on 05/21/19at 11:57; Start 05/21/19 at 10:00 Non-Formulary Medication (Tiotropium [place] (Spiriva)) 1 cap DAILY IH ; Start 05/22/19 at 09:00; Status UNV Zolpidem Tartrate (Ambien) 5 mg PRN QHS PRN PO INSOMNIA, MAY REPEAT IN 1HR; Start 05/21/19 at 09:45 Magnesium Chloride (Mag Delay) 192 mg QHS PO ; Start 05/21/19 at 21:00 Cetirizine HCl (ZyrTEC) 10 mg QHS PO ; Start 05/21/19 at 21:00 Albuterol/ Ipratropium (Duoneb) 3 ml RTQID NEB Last administered on 05/21/19at 12:45; Start 05/21/19 at 12:00 Albuterol Sulfate (Ventolin Neb Soln) 2.5 mg PRN Q4HRS PRN NEB SHORTNESS OF BREATH; Start 05/21/19 at 10:00 Furosemide (Lasix) 40 mg 1X ONCE IVP ; Start 05/21/19 at 17:30; Stop 05/21/19 at 17:31; Status DC Active Scripts Active Albuterol Sulfate Neb Soln (Albuterol Sulfate) 0.63 Mg/3 Ml Vial.neb 1 Vial NEB PRN QID PRN 3 Days Spiriva (Tiotropium [place]) 18 Mcg Cap.w.dev 1 Cap IH DAILY 30 Days Proventil Hfa (Albuterol Sulfate) 6.7 Gm Hfa.aer.ad 2 Puff IH Q4-6HRS PRN MDD 6 puff 7 Days Reported Hydrocodone-Apap 5-325 (Hydrocodone Bit/Acetaminophen) 1 Tab Tablet 1 Tab PO PRN Q4HRS PRN Aspirin 325 Mg Tablet 1 Tab PO DAILY LAST DOSE GIVEN: DATE:04/15/17 TIME:9:00 a.m. Omeprazole 20 Mg Capsule.dr 1 Cap PO DAILY LAST DOSE GIVEN: DATE:04/15/17 TIME:9:00 a.m. Fluticasone Propionate Nasal [place] (Fluticasone Propionate) 16 Gm [place].susp 2 [place] NS DAILY LAST DOSE GIVEN: DATE:04/15/17 TIME:9:00 a.m. Losartan Potassium 100 Mg Tablet 100 Mg PO HS [Xysol] 1 Tab PO HS [Slow Mag] 325 238 Mg PO HS Trazodone Hcl 50 Mg Tablet 50 Mg PO DAILY PRN Cyclobenzaprine Hcl 10 Mg Tablet 1 Tab PO TID LAST DOSE GIVEN: DATE:04/15/17 TIME:2:00 p.m. Niaspan (Niacin) 500 Mg Tab.er.24h 500 Mg PO HS Fish Oil ([place]-3 Fatty Acids) 500 Mg Capsule. 1,400 Mg PO Fluoxetine Hcl 20 Mg Tablet 40 Mg PO DAILY LAST DOSE GIVEN: DATE:04/15/17 TIME: 9:00 a.m. Zolpidem Tartrate 10 Mg Tablet 10 Mg PO PRN QHS PRN Levothyroxine Sodium 125 Mcg Tablet 125 Mcg PO DAILY LAST DOSE GIVEN: DATE:04/15/17 TIME:7:30 a.m. Alprazolam 1 Mg Tablet 1 Mg PO DAILY PRN Meds not given this hospital admission. May resume home medications as approved by Physician. Allergies Allergies: Allergies Coded Allergies Type Severity Reaction Last Updated Verified prochlorperazine Adverse Reaction Severe 04/30/19 Yes Almlypy-Bby-Gul Reductase Inhibitor Adverse Reaction Intermediate INCREASED LIVER ENZYMES 03/29/19 Yes ROS Review of System The patient denies any associated fevers, chills, headache, ear pain, rhinorrhea, sore throat, stiff neck, productive cough, chest pain, shortness of breath, back or flank pain, abdominal pain, nausea, vomiting, diarrhea, constipation, dysuria, rash, numbness, weakness, tingling, incontinence, difficulty ambulating, or diaphoresis. Physical Exam Physical Exam General: Well developed, well nourished, no acute distress, well appearing HEENT: Pupils equally round and reactive to light, EOMI, no discharge, normal conjunctiva Neck: Supple, no nuchal rigidity, no JVD, trachea midline, no tenderness Cardiac: RRR, no murmurs, no gallops, no rubs Chest/Lungs: CTAB, no wheeze, no rhonchi, no crackles Abdomen: soft, non-distended, no guarding, no peritoneal signs, non-tender Back: No tenderness Extremities: no edema, pulses intact, non-tender,capillary refill <3 sec bilateral upper and lower extremities, Neuro: Alert and oriented x 4, no focal deficits, normal speech Vitals Vitals: Vital Signs Date Time Temp Pulse Resp B/P (MAP) Pulse Ox O2 Delivery O2 Flow Rate FiO2 05/21/19 15:52 98.4 84 18 144/55 (84) 91 Room Air 98.4 05/21/19 12:46 2.0 Labs Labs Laboratory Tests Test 05/20/19 21:50 05/21/19 03:35 White Blood Count 6.8 x10^3/uL (4.0-11.0) 6.9 x10^3/uL (4.0-11.0) Red Blood Count 4.59 x10^6/uL (3.50-5.40) 4.25 x10^6/uL (3.50-5.40) Hemoglobin 12.7 g/dL (12.0-15.5) 11.7 g/dL (12.0-15.5) Hematocrit 38.3 % (36.0-47.0) 36.1 % (36.0-47.0) Mean Corpuscular Volume 84 fL (79-100) 85 fL (79-100) Mean Corpuscular Hemoglobin 28 pg (25-35) 28 pg (25-35) Mean Corpuscular Hemoglobin Concent 33 g/dL (31-37) 33 g/dL (31-37) Red Cell Distribution Width 13.6 % (11.5-14.5) 13.4 % (11.5-14.5) Platelet Count 203 x10^3/uL (140-400) 192 x10^3/uL (140-400) Neutrophils (%) (Auto) 67 % (31-73) 66 % (31-73) Lymphocytes (%) (Auto) 24 % (24-48) 24 % (24-48) Monocytes (%) (Auto) 6 % (0-9) 7 % (0-9) Eosinophils (%) (Auto) 2 % (0-3) 2 % (0-3) Basophils (%) (Auto) 1 % (0-3) 1 % (0-3) Neutrophils # (Auto) 4.5 x10^3/uL (1.8-7.7) 4.5 x10^3/uL (1.8-7.7) Lymphocytes # (Auto) 1.6 x10^3/uL (1.0-4.8) 1.7 x10^3/uL (1.0-4.8) Monocytes # (Auto) 0.4 x10^3/uL (0.0-1.1) 0.5 x10^3/uL (0.0-1.1) Eosinophils # (Auto) 0.2 x10^3/uL (0.0-0.7) 0.2 x10^3/uL (0.0-0.7) Basophils # (Auto) 0.1 x10^3/uL (0.0-0.2) 0.1 x10^3/uL (0.0-0.2) D-Dimer (Kanika) < 0.27 ug/mlFEU Sodium Level 143 mmol/L (136-145) 143 mmol/L (136-145) Potassium Level 3.9 mmol/L (3.5-5.1) 4.0 mmol/L (3.5-5.1) Chloride Level 106 mmol/L (98-107) 107 mmol/L (98-107) Carbon Dioxide Level 27 mmol/L (21-32) 27 mmol/L (21-32) Anion Gap 10 (6-14) 9 (6-14) Blood Urea Nitrogen 11 mg/dL (7-20) 12 mg/dL (7-20) Creatinine 1.0 mg/dL (0.6-1.0) 0.9 mg/dL (0.6-1.0) Estimated GFR (Cockcroft-Gault) 56.6 63.9 BUN/Creatinine Ratio 11 (6-20) 13 (6-20) Glucose Level 106 mg/dL (70-99) 101 mg/dL (70-99) Calcium Level 9.5 mg/dL (8.5-10.1) 9.2 mg/dL (8.5-10.1) Total Bilirubin 0.3 mg/dL (0.2-1.0) 0.3 mg/dL (0.2-1.0) Aspartate Amino Transf (AST/SGOT) 35 U/L (15-37) 35 U/L (15-37) Alanine Aminotransferase (ALT/SGPT) 52 U/L (14-59) 41 U/L (14-59) Alkaline Phosphatase 148 U/L (46-116) 145 U/L (46-116) Troponin I Quantitative < 0.017 ng/mL (0.000-0.055) PD-Vmf-C-Type Natriuretic Peptide 97 pg/mL (0-124) Total Protein 6.8 g/dL (6.4-8.2) 6.4 g/dL (6.4-8.2) Albumin 3.3 g/dL (3.4-5.0) 3.0 g/dL (3.4-5.0) Albumin/Globulin Ratio 0.9 (1.0-1.7) 0.9 (1.0-1.7) Laboratory Tests Test 05/20/19 21:50 05/21/19 03:35 White Blood Count 6.8 x10^3/uL (4.0-11.0) 6.9 x10^3/uL (4.0-11.0) Red Blood Count 4.59 x10^6/uL (3.50-5.40) 4.25 x10^6/uL (3.50-5.40) Hemoglobin 12.7 g/dL (12.0-15.5) 11.7 g/dL (12.0-15.5) Hematocrit 38.3 % (36.0-47.0) 36.1 % (36.0-47.0) Mean Corpuscular Volume 84 fL (79-100) 85 fL (79-100) Mean Corpuscular Hemoglobin 28 pg (25-35) 28 pg (25-35) Mean Corpuscular Hemoglobin Concent 33 g/dL (31-37) 33 g/dL (31-37) Red Cell Distribution Width 13.6 % (11.5-14.5) 13.4 % (11.5-14.5) Platelet Count 203 x10^3/uL (140-400) 192 x10^3/uL (140-400) Neutrophils (%) (Auto) 67 % (31-73) 66 % (31-73) Lymphocytes (%) (Auto) 24 % (24-48) 24 % (24-48) Monocytes (%) (Auto) 6 % (0-9) 7 % (0-9) Eosinophils (%) (Auto) 2 % (0-3) 2 % (0-3) Basophils (%) (Auto) 1 % (0-3) 1 % (0-3) Neutrophils # (Auto) 4.5 x10^3/uL (1.8-7.7) 4.5 x10^3/uL (1.8-7.7) Lymphocytes # (Auto) 1.6 x10^3/uL (1.0-4.8) 1.7 x10^3/uL (1.0-4.8) Monocytes # (Auto) 0.4 x10^3/uL (0.0-1.1) 0.5 x10^3/uL (0.0-1.1) Eosinophils # (Auto) 0.2 x10^3/uL (0.0-0.7) 0.2 x10^3/uL (0.0-0.7) Basophils # (Auto) 0.1 x10^3/uL (0.0-0.2) 0.1 x10^3/uL (0.0-0.2) D-Dimer (Kanika) < 0.27 ug/mlFEU Sodium Level 143 mmol/L (136-145) 143 mmol/L (136-145) Potassium Level 3.9 mmol/L (3.5-5.1) 4.0 mmol/L (3.5-5.1) Chloride Level 106 mmol/L (98-107) 107 mmol/L (98-107) Carbon Dioxide Level 27 mmol/L (21-32) 27 mmol/L (21-32) Anion Gap 10 (6-14) 9 (6-14) Blood Urea Nitrogen 11 mg/dL (7-20) 12 mg/dL (7-20) Creatinine 1.0 mg/dL (0.6-1.0) 0.9 mg/dL (0.6-1.0) Estimated GFR (Cockcroft-Gault) 56.6 63.9 BUN/Creatinine Ratio 11 (6-20) 13 (6-20) Glucose Level 106 mg/dL (70-99) 101 mg/dL (70-99) Calcium Level 9.5 mg/dL (8.5-10.1) 9.2 mg/dL (8.5-10.1) Total Bilirubin 0.3 mg/dL (0.2-1.0) 0.3 mg/dL (0.2-1.0) Aspartate Amino Transf (AST/SGOT) 35 U/L (15-37) 35 U/L (15-37) Alanine Aminotransferase (ALT/SGPT) 52 U/L (14-59) 41 U/L (14-59) Alkaline Phosphatase 148 U/L (46-116) 145 U/L (46-116) Troponin I Quantitative < 0.017 ng/mL (0.000-0.055) SX-Lyi-A-Type Natriuretic Peptide 97 pg/mL (0-124) Total Protein 6.8 g/dL (6.4-8.2) 6.4 g/dL (6.4-8.2) Albumin 3.3 g/dL (3.4-5.0) 3.0 g/dL (3.4-5.0) Albumin/Globulin Ratio 0.9 (1.0-1.7) 0.9 (1.0-1.7) SANDRO CARVER MD May 21, 2019 19:05
[2019-05-21 19:35] VITALS: BP 155/68
[2019-05-21] MEDS ORDERED: NIACIN ER 500 MG TABLET.ER PO SCH (21:00)
[2019-05-21] MEDS ORDERED: LOSARTAN POTASSIUM 50 MG TABLET. PO SCH (21:00)
[2019-05-21] MEDS ORDERED: CETIRIZINE HCL 10 MG TABLET. PO SCH (21:00)
[2019-05-21] MEDS ORDERED: MAGNESIUM CHLORIDE ER 64 MG TABLET.ER PO SCH (21:00)
[2019-05-21 23:35] VITALS: BP 142/65
[2019-05-22 03:35] VITALS: BP 127/46
--- NOTE | 2019-05-22 05:41 | CONS ---
DATE OF CONSULTATION: 05/21/2019 ATTENDING PHYSICIAN: Dr. Pacheco. REASON FOR CONSULTATION: The patient seen in pulmonary consultation at the request of Dr. Pacheco for increasing shortness of air. HISTORY OF PRESENT ILLNESS: The patient is a morbidly obese individual, BMI of 55, 58-year-old that presented with increasing shortness of breath. She was here on 05/01/2019. At that time, I saw her for the same problem, hypoxemia, which I felt was secondary to shunting from her morbid obesity and underlying COPD. The patient currently is not smoking. She was at home. She started to experience increasing shortness of breath, wheeze. She states that her nebulized treatments did not help her. She is not on home oxygen and she is currently not smoking. I queried about the possibility of inhalation of any toxic fumes or dust. She does have a new cat at her home, but outside of that, no new identifiable inhalation of any toxic fumes or dust. PAST MEDICAL HISTORY: Remarkable for COPD, tobacco dependent, in remission, quit 10 years ago, hypertension, previous obstructive sleep apnea. Apparently, she is scheduled for a repeat CPAP study with the titration, morbid obesity, anxiety, depression, fibromyalgia, hypothyroidism, peptic ulcer disease, previous coronary workup was negative back of 03/27/2019, revealing no occlusive disease. PAST SURGICAL HISTORY: Status post appendectomy, cholecystectomy, total knee replacement, tonsillectomy, hysterectomy. FAMILY HISTORY: Hypertension and heart disease. SOCIAL HISTORY: She quit tobacco 10 years ago, currently not smoking. REVIEW OF SYSTEMS: CONSTITUTIONAL: No fever or chills. EYES: No change in visual acuity. HENT: No nasal congestion or sore throat. PULMONARY: As indicated above. CARDIOVASCULAR: As indicated above. GASTROINTESTINAL: No nausea, vomiting, diarrhea. GENITOURINARY: No dysuria or frequency. MUSCULOSKELETAL: No localized muscle aches or joint pains. SKIN: No new skin rashes. NEUROLOGIC: No headaches, diplopia or blurred vision. ALLERGIES: STATIN AND PROCHLORPERAZINE. CURRENT MEDICATIONS: List was reviewed. PHYSICAL EXAMINATION: GENERAL: Morbid obese individual, in no respiratory distress. VITAL SIGNS: Stable. O2 saturation was greater than 92%, currently on 2 liters. HEENT: Eyes, the sclerae were nonicteric. NECK: Jugular venous distention could not be assessed secondary to body habitus. CHEST: Full expansion. LUNGS: Adequate airway flow with the coarse breath sounds. CARDIOVASCULAR: Regular rate and rhythm with S1, S2, no S3. ABDOMEN: Obese. EXTREMITIES: Marked obesity. No significant pitting edema. NEUROLOGICAL: The patient was awake, alert, following commands. A detailed neuro exam was not performed. LABORATORY DATA: Reviewed. Electrolytes were noted. BUN and creatinine were normal. White count was normal. D-dimer was less than 0.27. Chest x-ray revealed increased interstitial infiltrates compatible with the vascular congestion. IMPRESSION: 1. Acute hypoxemic respiratory failure. 2. Tbuvi-yz-sewmgby diastolic heart failure. 3. Morbid obesity. 4. Suspect pkrla-mp-lpfzeob cor pulmonale. 5. Suspect pulmonary hypertension. 6. Morbid obesity. 7. Obstructive sleep apnea. PLAN: 1. Recommend diuresis. 2. Outpatient sleep study with CPAP titration. 3. Nebulized treatments. 4. Continue home medications. 5. No need for antibiotics. I do appreciate the privilege in participating in patient's care. BEN WASHINGTON MD DR: MARY/millie JOB#: [id number] / [id number]
[2019-05-22 05:50] LABS: CALCIUM 9.7 mg/dL (8.5-10.1); GFR 56.6; POTASSIUM 3.7 mmol/L (3.5-5.1)
[2019-05-22] MEDS: LEVOTHYROXINE 125 MCG TABLET PO SCH (05:51)
[2019-05-22 07:00] VITALS: BP 116/61
[2019-05-22] MEDS: IPRATRPIUM/ALBUTEROL 0.5/2.5MG 3 ML NEBU. NEB SCH ×3 (07:36→15:24)
[2019-05-22] MEDS ORDERED: NON FORMULARY ITEM (Tiotropium Bromide (Spiriva) 1 CAP) IH SCH (09:00)
--- NOTE | 2019-05-22 09:21 | PDOC2 ---
GI CONSULT Reason For Consult: wishes to see you, recent dx PBC has appt this week HPI: HPI: 58 y/o female who we have seen several times recently. Admitted again w/ SOA and cough - she says related to her dusting the bookcase next to her which aggravated her allergies, also mentions inhalers too expensive. Also code stroke called yesterday for slurred speech, slowed speech, facial drooping, and weakness - I believe similar symptoms in the past 2/2 migraines. Stroke ruled out, now w/ discharge orders. Currently without GI complaints - had RUQ discomfort during last admission which has resolved. H/o GERD on omeprazole QD. H/o chronic chest pain (though currently denies). No n/v, abd pain, diarrhea, constipation, hematochezia, melena, change in appetite, or weight loss. In the past reported occasional dysphagia and occasional constipation ([id number] w/ probiotics, yogurt, and Colace). H/o IBS. EGD by Dr. Payne for atypical chest pain in 03/2019 showed mild reflux esophagitis, normal stomach, and normal duodenum. EGD and colonoscopy in [address] Vick: low-grade reflux and pre-pyloric ulcer (biopsy negative for H. pylori and c/w NSAID effect), diverticulosis, and hemorrhoids. Had adenomatous polyp in 2008. S/p cholecystectomy (for "gravel"). H/o elevated LFTs, negative viral hepatitis panel in 2016, +AMA in 2019, and fatty liver on past imaging (US in 2017). Has an appointment w/ Dr. Payne this week to discuss PBC and treatment. No pancreas history. Takes ASA 81mg, also Lortab QID for chronic knee pain. PMH: PMH: HTN, HLD, ELMER (no CPAP for awhile), TIA, anxiety, depression, OA, fibromyalgia, hypothyroidism, GERD, diverticulosis, hemorrhoids, fatty liver appendectomy, cholecystectomy, , tubal ligation, tonsillectomy, hysterectomy, joint replacements/debridement, cardiac cath FH: Family History: CAD, CVA, Hypertension Social History: Smoke: Quit ALCOHOL: none Drugs: None ROS: GEN: Denies fevers, chills, sweats HEENT: Denies blurred vision, sore throat CV: Denies chest pain RESP: +shortness of air, cough GI: Per HPI : Denies hematuria, dysuria ENDO: Denies weight changes NEURO: Denies confusion, dizziness MSK: Denies weakness, joint pain/swelling SKIN: Denies jaundice, pruritus Vitals: Vitals: Vital Signs Date Time Temp Pulse Resp B/P (MAP) Pulse Ox O2 Delivery O2 Flow Rate FiO2 05/22/19 07:37 96 Nasal Cannula 4.0 05/22/19 03:35 97.9 80 18 127/46 (73) 97.9 Labs: Labs: Laboratory Tests Test 05/21/19 15:04 05/22/19 03:50 Glucose (Fingerstick) 96 mg/dL (70-99) Sodium Level 143 mmol/L (136-145) Potassium Level 3.7 mmol/L (3.5-5.1) Chloride Level 102 mmol/L (98-107) Carbon Dioxide Level 29 mmol/L (21-32) Anion Gap 12 (6-14) Blood Urea Nitrogen 12 mg/dL (7-20) Creatinine 1.0 mg/dL (0.6-1.0) Estimated GFR (Cockcroft-Gault) 56.6 Glucose Level 97 mg/dL (70-99) Calcium Level 9.7 mg/dL (8.5-10.1) Allergies: Coded Allergies: prochlorperazine (Verified Adverse Reaction, Severe, 04/30/19) SKIN CRAWLING Tmxxcqu-Nme-Cso Reductase Inhibitor (Verified Adverse Reaction, Intermediate, INCREASED LIVER ENZYMES, 03/29/19) Medications: Current Medications Medications (Trade) Dose Ordered Sig/Aretha Route PRN Reason Start Time Stop Time Status Last Admin Dose Admin Aspirin (Evaristo Aspirin) 325 mg DAILY PO 05/21/19 10:00 05/21/19 11:58 Cyclobenzaprine HCl (Flexeril) 10 mg TID PO 05/21/19 14:00 05/21/19 21:00 Fluticasone Propionate (Flonase) 2 spray DAILY NS 05/21/19 10:00 05/21/19 11:58 Levothyroxine Sodium (Synthroid) 125 mcg DAILY06 PO 05/21/19 10:00 05/22/19 05:51 Niacin (Slo-Niacin) 500 mg HS PO 05/21/19 21:00 05/21/19 21:00 Fluoxetine HCl (PROzac) 40 mg DAILY PO 05/21/19 10:00 05/21/19 11:57 Losartan Potassium (Cozaar) 100 mg QHS PO 05/21/19 21:00 05/21/19 21:09 Pantoprazole Sodium (Protonix) 40 mg DAILYAC PO 05/21/19 10:00 05/21/19 11:57 Zolpidem Tartrate (Ambien) 5 mg PRN QHS PRN PO INSOMNIA, MAY REPEAT IN 1HR 05/21/19 09:45 05/21/19 21:14 Magnesium Chloride (Mag Delay) 192 mg QHS PO 05/21/19 21:00 05/21/19 21:00 Cetirizine HCl (ZyrTEC) 10 mg QHS PO 05/21/19 21:00 05/21/19 21:01 Albuterol/ Ipratropium (Duoneb) 3 ml RTQID NEB 05/21/19 12:00 05/22/19 07:36 Furosemide (Lasix) 40 mg 1X ONCE IVP 05/21/19 17:30 05/21/19 17:31 DC 05/21/19 18:52 Imaging: Imaging: Head CT IMPRESSION: 1. No acute intracranial findings. Brain MRI IMPRESSION: 1. No evidence of acute intracranial hemorrhage, mass or acute infarct. 2. Minimal spotty signal abnormality in the deep/subcortical periventricular white matter, nonspecific but likely related to chronic small vessel ischemic changes. CXR IMPRESSION: Increase in diffuse interstitial infiltrate. Correlate for congestion. PE: GEN: NAD - up in chair, just walked w/ therapy HEENT: Atraumatic, PERRL LUNGS: NC 4L HEART: RRR ABD: NABS, S/NT, obese EXTREMITY: No edema SKIN: No rashes, no jaundice NEURO/PSYCH: A & O 3 A/P: A/P: Acute on chronic resp failure Code stroke - ruled out PBC, fatty liver, h/o elevated LFTs (normal this time except Alk Phos) GERD, h/o PUD - on PPI CRC screen, h/o adenomatous polyp - UTD S/p cholecystectomy Chronic pain -- Currently without GI complaints. Supposed to discuss PBC/treatment in office later this week. Will review w/ Dr. Payne. AYANA CUEVAS May 22, 2019 09:21
[2019-05-22] MEDS ORDERED: FURO-68 PO (09:30)
[2019-05-22] MEDS ORDERED: POTA10TA12 PO (09:30)
--- NOTE | 2019-05-22 09:31 | SNU/HH DC ---
DISCHARGE WITH HOME HEALTH DISCHARGE INFORMATION: Discharge Date: May 22, 2019 Final Diagnosis: Problems Medical Problems: (1) Abdominal pain Status: Acute (2) Atypical chest pain Status: Acute (3) Dyslipidemia Status: Chronic (4) HTN (hypertension) Status: Chronic (5) Obesity Status: Chronic (6) Slurred speech Status: Acute (7) SOB (shortness of breath) Status: Acute Condition on Discharge: Stable CODE STATUS: Code Status: Full HOME HEALTH: Face to Face: I certify this patient is under my care and that I, or a nurse practitioner or physician's design assistant working with me, had a face to face encounter that meets the physician face to face encounter requirements with this patient on []. Medical Complications: CHF RN For Eval/Treatment: Yes Physical Therapy For: Evalulation/Treatment Occupational Therapy For: Evaluation/Treatment Speech Language Pathology For: Evaluation/Treatment Home Health Aide For: Self-care COILER For: Community Resources Pt Meets Homebound Status: Extreme weakness w/ amb. POST DISCHARGE ORDERS: Activity Instructions for Disc: Activity as tolerated Weight Bearing Status after Di: Full weight bearing Bathing Instructions: Shower-keep dressing dry, No Tub Bath until see Wound/Incision Care: Other, see below CHECKS AFTER DISCHARGE: Checks after discharge: Check blood press - daily FOLLOW-UP: PCP to follow Home Health: i started lasix 20 PO qdaily x 7 days, BMP in 7 days TREATMENT/EQUIPMENT ORDERS: Adaptive Equipment Issued: Benjamín Chappell CERTIFICATION STATEMENT: Certification Statement: Certification Statement: Based on the above finding, I certify that this patient is confined to the home and needs intermittent residential care, physical therapy and/or speech therapy, or continues to need occupational therapy.~ This patient is under my care, and I have initiated the establishment of the plan of care.~ This patient will be followed by myself or a community physician who will periodically review the plan of care. Home Meds Active Scripts Potassium Chloride (POTASSIUM CHLORIDE) 10 Meq Tab.sr.24h, 10 MEQ PO DAILY for while on lasix, #7 TAB.SR Prov:CASANDRA MIDDLETON MD 05/22/19 Furosemide (LASIX) 40 Mg Tablet, 1 TAB PO DAILY for chf, cxr for 7 Days, #7 TAB 0 Refills Prov:CASANDRA MIDDLETON MD 05/22/19 Albuterol Sulfate (ALBUTEROL SULFATE NEB SOLN) 0.63 Mg/3 Ml Vial.neb, 1 VIAL NEB PRN QID PRN for copd for 3 Days, #150 ML 1 Refill Prov:RUTH PAINTER MD 05/02/19 Tiotropium [place] (SPIRIVA) 18 Mcg Cap.w.dev, 1 CAP IH DAILY for COPD for 30 Days, #30 CAP 3 Refills Prov:RUTH PAINTER MD 05/02/19 Albuterol Sulfate (Proventil Hfa) 6.7 Gm Hfa.aer.ad, 2 PUFF IH Q4-6HRS PRN for WHEEZING MDD 6 puff for 7 Days, #1 INHALER Prov:COLT HASSAN DO 04/16/18 Reported Medications Hydrocodone Bit/Acetaminophen (HYDROCODONE-APAP 5-325 ) 1 Tab Tablet, 1 TAB PO PRN Q4HRS PRN for PAIN, TAB 0 Refills 03/27/19 Aspirin (ASPIRIN) 325 Mg Tablet, 1 TAB PO DAILY for cardiac, #30 TAB 5 Refills LAST DOSE GIVEN: DATE:04/15/17 TIME:9:00 a.m. 04/15/17 Omeprazole (OMEPRAZOLE) 20 Mg Capsule.dr, 1 CAP PO DAILY, #30 CAP 5 Refills LAST DOSE GIVEN: DATE:04/15/17 TIME:9:00 a.m. 04/12/17 Fluticasone Propionate (FLUTICASONE PROPIONATE [place]) 16 Gm [place].susp, 2 SPRAY NS DAILY, #1 INHALER 11 Refills LAST DOSE GIVEN: DATE:04/15/17 TIME:9:00 a.m. 04/12/17 Losartan Potassium (LOSARTAN POTASSIUM) 100 Mg Tablet, 100 MG PO HS, TAB 04/12/17 [Xysol] No Conflict Check, 1 TAB PO HS 04/04/17 [Slow Mag] 325 No Conflict Check, 238 MG PO HS 04/04/17 Trazodone Hcl (TRAZODONE HCL) 50 Mg Tablet, 50 MG PO DAILY PRN for MIGRAINE HEADACHE, TAB 07/19/16 Cyclobenzaprine Hcl (CYCLOBENZAPRINE HCL) 10 Mg Tablet, 1 TAB PO TID, #90 TAB LAST DOSE GIVEN: DATE:04/15/17 TIME:2:00 p.m. 07/19/16 Niacin (NIASPAN) 500 Mg Tab.er.24h, 500 MG PO HS, TAB.SR 12/19/14 [place]-3 Fatty Acids (FISH OIL) 500 Mg Capsule.dr, 1400 MG PO 11/07/13 Fluoxetine Hcl (FLUOXETINE HCL) 20 Mg Tablet, 40 MG PO DAILY LAST DOSE GIVEN: DATE:04/15/17 TIME: 9:00 a.m. 11/07/13 Zolpidem Tartrate (ZOLPIDEM TARTRATE) 10 Mg Tablet, 10 MG PO PRN QHS PRN for INSOMNIA 11/07/13 Levothyroxine Sodium (LEVOTHYROXINE SODIUM) 125 Mcg Tablet, 125 MCG PO DAILY LAST DOSE GIVEN: DATE:04/15/17 TIME:7:30 a.m. 06/18/13 Alprazolam (ALPRAZOLAM) 1 Mg Tablet, 1 MG PO DAILY PRN for ANXIETY Meds not given this hospital admission. May resume home medications as approved by Physician. 06/18/13 CASANDRA MIDDLETON MD May 22, 2019 09:31
--- NOTE | 2019-05-22 09:35 | PDOC3 ---
Discharge Summary Visit Information Date of Admission: May 21, 2019 Date of Discharge: May 22, 2019 Admitting Diagnosis Comment: SOA, diastolic heart failure, normal EF 65% Obesity - BMI 55 - could be all obesity hypoventilation syndrome Recent dx PBC DYslipidemia, HTN, hx bilteral TKA - chronic stable Final Diagnosis Problems Medical Problems: (1) Abdominal pain Status: Acute (2) Atypical chest pain Status: Acute (3) Dyslipidemia Status: Chronic (4) HTN (hypertension) Status: Chronic (5) Obesity Status: Chronic (6) Slurred speech Status: Acute (7) SOB (shortness of breath) Status: Acute Brief Hospital Course Allergies Allergies Coded Allergies Type Severity Reaction Last Updated Verified prochlorperazine Adverse Reaction Severe 04/30/19 Yes Jlfuprc-Txt-Auy Reductase Inhibitor Adverse Reaction Intermediate INCREASED LIVER ENZYMES 03/29/19 Yes Vital Signs Vital Signs Date Time Temp Pulse Resp B/P (MAP) Pulse Ox O2 Delivery O2 Flow Rate FiO2 05/22/19 07:37 96 Nasal Cannula 4.0 05/22/19 07:00 97.6 83 18 116/61 (79) 97.6 Lab Results Laboratory Tests Test 05/20/19 21:50 05/21/19 03:35 05/21/19 15:04 05/22/19 03:50 White Blood Count 6.8 x10^3/uL (4.0-11.0) 6.9 x10^3/uL (4.0-11.0) Red Blood Count 4.59 x10^6/uL (3.50-5.40) 4.25 x10^6/uL (3.50-5.40) Hemoglobin 12.7 g/dL (12.0-15.5) 11.7 g/dL (12.0-15.5) Hematocrit 38.3 % (36.0-47.0) 36.1 % (36.0-47.0) Mean Corpuscular Volume 84 fL (79-100) 85 fL (79-100) Mean Corpuscular Hemoglobin 28 pg (25-35) 28 pg (25-35) Mean Corpuscular Hemoglobin Concent 33 g/dL (31-37) 33 g/dL (31-37) Red Cell Distribution Width 13.6 % (11.5-14.5) 13.4 % (11.5-14.5) Platelet Count 203 x10^3/uL (140-400) 192 x10^3/uL (140-400) Neutrophils (%) (Auto) 67 % (31-73) 66 % (31-73) Lymphocytes (%) (Auto) 24 % (24-48) 24 % (24-48) Monocytes (%) (Auto) 6 % (0-9) 7 % (0-9) Eosinophils (%) (Auto) 2 % (0-3) 2 % (0-3) Basophils (%) (Auto) 1 % (0-3) 1 % (0-3) Neutrophils # (Auto) 4.5 x10^3/uL (1.8-7.7) 4.5 x10^3/uL (1.8-7.7) Lymphocytes # (Auto) 1.6 x10^3/uL (1.0-4.8) 1.7 x10^3/uL (1.0-4.8) Monocytes # (Auto) 0.4 x10^3/uL (0.0-1.1) 0.5 x10^3/uL (0.0-1.1) Eosinophils # (Auto) 0.2 x10^3/uL (0.0-0.7) 0.2 x10^3/uL (0.0-0.7) Basophils # (Auto) 0.1 x10^3/uL (0.0-0.2) 0.1 x10^3/uL (0.0-0.2) D-Dimer ([place]ika) < 0.27 ug/mlFEU Sodium Level 143 mmol/L (136-145) 143 mmol/L (136-145) 143 mmol/L (136-145) Potassium Level 3.9 mmol/L (3.5-5.1) 4.0 mmol/L (3.5-5.1) 3.7 mmol/L (3.5-5.1) Chloride Level 106 mmol/L (98-107) 107 mmol/L (98-107) 102 mmol/L (98-107) Carbon Dioxide Level 27 mmol/L (21-32) 27 mmol/L (21-32) 29 mmol/L (21-32) Anion Gap 10 (6-14) 9 (6-14) 12 (6-14) Blood Urea Nitrogen 11 mg/dL (7-20) 12 mg/dL (7-20) 12 mg/dL (7-20) Creatinine 1.0 mg/dL (0.6-1.0) 0.9 mg/dL (0.6-1.0) 1.0 mg/dL (0.6-1.0) Estimated GFR (Cockcroft-Gault) 56.6 63.9 56.6 BUN/Creatinine Ratio 11 (6-20) 13 (6-20) Glucose Level 106 mg/dL (70-99) 101 mg/dL (70-99) 97 mg/dL (70-99) Calcium Level 9.5 mg/dL (8.5-10.1) 9.2 mg/dL (8.5-10.1) 9.7 mg/dL (8.5-10.1) Total Bilirubin 0.3 mg/dL (0.2-1.0) 0.3 mg/dL (0.2-1.0) Aspartate Amino Transf (AST/SGOT) 35 U/L (15-37) 35 U/L (15-37) Alanine Aminotransferase (ALT/SGPT) 52 U/L (14-59) 41 U/L (14-59) Alkaline Phosphatase 148 U/L (46-116) 145 U/L (46-116) Troponin I Quantitative < 0.017 ng/mL (0.000-0.055) KU-Hjm-W-Type Natriuretic Peptide 97 pg/mL (0-124) Total Protein 6.8 g/dL (6.4-8.2) 6.4 g/dL (6.4-8.2) Albumin 3.3 g/dL (3.4-5.0) 3.0 g/dL (3.4-5.0) Albumin/Globulin Ratio 0.9 (1.0-1.7) 0.9 (1.0-1.7) Creatine Kinase 30 U/L (26-192) Vitamin B12 Level 179 pg/mL (247-911) Glucose (Fingerstick) 96 mg/dL (70-99) Laboratory Tests Test 05/21/19 15:04 05/22/19 03:50 Glucose (Fingerstick) 96 mg/dL (70-99) Sodium Level 143 mmol/L (136-145) Potassium Level 3.7 mmol/L (3.5-5.1) Chloride Level 102 mmol/L (98-107) Carbon Dioxide Level 29 mmol/L (21-32) Anion Gap 12 (6-14) Blood Urea Nitrogen 12 mg/dL (7-20) Creatinine 1.0 mg/dL (0.6-1.0) Estimated GFR (Cockcroft-Gault) 56.6 Glucose Level 97 mg/dL (70-99) Calcium Level 9.7 mg/dL (8.5-10.1) Brief Hospital Course Ms. Ng is a 58 old obese white female came for SOA< CXR mild congestion, LAbs ok, No CP, ELMER likely, mallampati 4 on PE, ECho 03/2019, good EF, 65% , no pericardial effusion, Pulm pressures 31mmhg. COnsulted pulmo, I also rec Out pt sleep study, she is in the works for cpap,. Went into some change in MS - VERY transient, lasted hrs, normal neuro work up, MIght need HH< I recommended low dose lasix 20 PO x7 days with kcl (K 3.7). did get lasix 40 IVP x 1 here,. SHe understands BMP in 7 days since lasix PO x 7 days DispO; HH COnsults, neuro, GI per her request (recent dx PBC)< pulmo PRoc; CXR, CT head labs draws Discharge Information Condition at Discharge: Improved, Stable Disposition/Orders: D/C to Home w/ HH Scheduled Aspirin (Aspirin) 325 Mg Tablet, 1 TAB PO DAILY for cardiac, #30 Ref 5 (Reported) LAST DOSE GIVEN: DATE:04/15/17 TIME:9:00 a.m. Entered as Reported by: HENRIQUE WALDRON on 04/15/17 1325 Last Action: Continued on 05/21/19931 by CASANDRA MIDDLETON Cyclobenzaprine Hcl (Cyclobenzaprine Hcl) 10 Mg Tablet, 1 TAB PO TID, #90 (Reported) LAST DOSE GIVEN: DATE:04/15/17 TIME:2:00 p.m. Entered as Reported by: Mariama Caraballo on 07/19/16 8284 Last Action: Continued on 05/21/19931 by CASANDRA MIDDLETON Fluoxetine Hcl (Fluoxetine Hcl) 20 Mg Tablet, 40 MG PO DAILY, (Reported) LAST DOSE GIVEN: DATE:04/15/17 TIME: 9:00 a.m. Entered as Reported by: GABRIELA WHEATLEY on 11/07/13 1416 Last Action: Converted on 05/21/19931 by CASANDRA MIDDLETON Fluticasone Propionate (Fluticasone Propionate Nasal [place]) 16 Gm [place].susp, 2 SPRAY NS DAILY, #1 Ref 11 (Reported) LAST DOSE GIVEN: DATE:04/15/17 TIME:9:00 a.m. Entered as Reported by: SHALOM OLGUIN on 04/12/17926 Last Action: Continued on 05/21/19931 by CASANDRA MIDDLETON Furosemide (Lasix) 40 Mg Tablet, 1 TAB PO DAILY for chf, cxr for 7 Days, #7 Ref 0 Prescribed by: CASANDRA MIDDLETON on 05/22/19929 Levothyroxine Sodium (Levothyroxine Sodium) 125 Mcg Tablet, 125 MCG PO DAILY, (Reported) LAST DOSE GIVEN: DATE:04/15/17 TIME:7:30 a.m. Entered as Reported by: DIANA VARGAS on 06/18/13 1600 Last Action: Continued on 05/21/19931 by CASANDRA MIDDLETON Losartan Potassium (Losartan Potassium) 100 Mg Tablet, 100 MG PO HS, (Reported) Entered as Reported by: SHALOM OLGUIN on 04/12/17926 Last Action: Converted on 05/21/19931 by CASANDRA MIDDLETON Niacin (Niaspan) 500 Mg Tab.er.24h, 500 MG PO HS, (Reported) Entered as Reported by: CAYLA SEGURA on 12/19/14 0729 Last Action: Continued on 05/21/19931 by CASANDRA MIDDLETON Omeprazole (Omeprazole) 20 Mg Capsule.dr, 1 CAP PO DAILY, #30 Ref 5 (Reported) LAST DOSE GIVEN: DATE:04/15/17 TIME:9:00 a.m. Entered as Reported by: SHALOM OLGUIN on 04/12/17926 Last Action: Converted on 05/21/19931 by CASANDRA MIDDLETON Potassium Chloride (Potassium Chloride) 10 Meq Tab.sr.24h, 10 MEQ PO DAILY for while on lasix, #7 Prescribed by: CASANDRA MIDDLETON on 05/22/19929 Tiotropium [place] (Spiriva) 18 Mcg Cap.w.dev, 1 CAP IH DAILY for COPD for 30 Days, #30 Ref 3 Prescribed by: RUTH PAINTER MD on 05/02/19 1259 Last Action: Converted on 05/21/19931 by CASANDRA MIDDLETON [Slow Mag] 325 , 238 MG PO HS, (Reported) Entered as Reported by: CAYLA ADORNO on 04/04/17 1209 Last Action: Converted on 05/21/19931 by CASANDRA MIDDLETON [Xysol] , 1 TAB PO HS, (Reported) Entered as Reported by: CAYLA ADORNO on 04/04/17 1211 Last Action: Converted on 05/21/19931 by CASANDRA MIDDLETON Scheduled PRN Albuterol Sulfate (Proventil Hfa) 6.7 Gm Hfa.aer.ad, 2 PUFF IH Q4-6HRS PRN for WHEEZING MDD 6 puff for 7 Days, #1 Prescribed by: COLT HASSAN on 04/16/18 0503 Last Action: Converted on 05/21/19931 by CASANDRA MIDDLETON Albuterol Sulfate (Albuterol Sulfate Neb Soln) 0.63 Mg/3 Ml Vial.neb, 1 VIAL NEB PRN QID PRN for copd for 3 Days, #150 Ref 1 Prescribed by: RUTH PAINTER MD on 05/02/19 1309 Last Action: Converted on 05/21/19931 by CASANDRA MIDDLETON Alprazolam (Alprazolam) 1 Mg Tablet, 1 MG PO DAILY PRN for ANXIETY, (Reported) Meds not given this hospital admission. May resume home medications as approved by Physician. Entered as Reported by: DIANA VARGAS on 06/18/13 1539 Last Action: Continued on 05/21/19931 by CASANDRA MIDDLETON Hydrocodone Bit/Acetaminophen (Hydrocodone-Apap 5-325 ) 1 Tab Tablet, 1 TAB PO PRN Q4HRS PRN for PAIN, Ref 0 (Reported) Entered as Reported by: Lori Bardales on 03/27/19 0134 Last Action: Continued on 05/21/19216 by ELA REEDER Trazodone Hcl (Trazodone Hcl) 50 Mg Tablet, 50 MG PO DAILY PRN for MIGRAINE HEADACHE, (Reported) Entered as Reported by: Mariama Caraballo on 07/19/16 0503 Last Action: Continued on 05/21/19931 by CASANDRA MIDDLETON Zolpidem Tartrate (Zolpidem Tartrate) 10 Mg Tablet, 10 MG PO PRN QHS PRN for INSOMNIA, (Reported) Entered as Reported by: GABRIELA WHEATLEY on 11/07/131415 Last Action: Converted on 05/21/19931 by CASANDRA MIDDLETON Miscellaneous Medications [place]-3 Fatty Acids (Fish Oil) 500 Mg Capsule.dr, 1,400 MG PO, (Reported) Entered as Reported by: GABRIELA WHEATLEY on 11/07/131415 CASANDRA MIDDLETON MD May 22, 2019 09:35
[2019-05-22] MEDS: FLUoxetine HCL 20 MG CAPSULE PO SCH (09:57)
[2019-05-22] MEDS: FLUTICASONE 50MCG/NASAL SPRAY 16GM BOTTLE. NS SCH (09:57)
[2019-05-22] MEDS: PANTOPRAZOLE 40 MG TABLET.DR. PO SCH (09:57)
[2019-05-22] MEDS: CYCLOBENZAPRINE 10 MG TABLET. PO SCH ×2 (09:58→15:48)
[2019-05-22] MEDS: ASPIRIN 325 MG TABLET PO SCH (09:58)
--- NOTE | 2019-05-22 10:54 | PDOC ---
PULMONARY PROGRESS NOTES Subjective PT NOT MORE SOA Vitals Vital Signs Date Time Temp Pulse Resp B/P (MAP) Pulse Ox O2 Delivery O2 Flow Rate FiO2 05/22/19 07:37 96 Nasal Cannula 4.0 05/22/19 07:00 97.6 83 18 116/61 (79) 97.6 ROS: No Nausea, No Chest Pain, No Abdominal Pain, No Increase Cough General: Alert, No acute distress Lungs: Clear Cardiovascular: S1, S2 Abdomen: Soft, Non-tender Extremities: No Edema, Other Labs Laboratory Tests Test 05/20/19 21:50 05/21/19 03:35 05/21/19 15:04 05/22/19 03:50 White Blood Count 6.8 x10^3/uL (4.0-11.0) 6.9 x10^3/uL (4.0-11.0) Red Blood Count 4.59 x10^6/uL (3.50-5.40) 4.25 x10^6/uL (3.50-5.40) Hemoglobin 12.7 g/dL (12.0-15.5) 11.7 g/dL (12.0-15.5) Hematocrit 38.3 % (36.0-47.0) 36.1 % (36.0-47.0) Mean Corpuscular Volume 84 fL (79-100) 85 fL (79-100) Mean Corpuscular Hemoglobin 28 pg (25-35) 28 pg (25-35) Mean Corpuscular Hemoglobin Concent 33 g/dL (31-37) 33 g/dL (31-37) Red Cell Distribution Width 13.6 % (11.5-14.5) 13.4 % (11.5-14.5) Platelet Count 203 x10^3/uL (140-400) 192 x10^3/uL (140-400) Neutrophils (%) (Auto) 67 % (31-73) 66 % (31-73) Lymphocytes (%) (Auto) 24 % (24-48) 24 % (24-48) Monocytes (%) (Auto) 6 % (0-9) 7 % (0-9) Eosinophils (%) (Auto) 2 % (0-3) 2 % (0-3) Basophils (%) (Auto) 1 % (0-3) 1 % (0-3) Neutrophils # (Auto) 4.5 x10^3/uL (1.8-7.7) 4.5 x10^3/uL (1.8-7.7) Lymphocytes # (Auto) 1.6 x10^3/uL (1.0-4.8) 1.7 x10^3/uL (1.0-4.8) Monocytes # (Auto) 0.4 x10^3/uL (0.0-1.1) 0.5 x10^3/uL (0.0-1.1) Eosinophils # (Auto) 0.2 x10^3/uL (0.0-0.7) 0.2 x10^3/uL (0.0-0.7) Basophils # (Auto) 0.1 x10^3/uL (0.0-0.2) 0.1 x10^3/uL (0.0-0.2) D-Dimer (Kanika) < 0.27 ug/mlFEU Sodium Level 143 mmol/L (136-145) 143 mmol/L (136-145) 143 mmol/L (136-145) Potassium Level 3.9 mmol/L (3.5-5.1) 4.0 mmol/L (3.5-5.1) 3.7 mmol/L (3.5-5.1) Chloride Level 106 mmol/L (98-107) 107 mmol/L (98-107) 102 mmol/L (98-107) Carbon Dioxide Level 27 mmol/L (21-32) 27 mmol/L (21-32) 29 mmol/L (21-32) Anion Gap 10 (6-14) 9 (6-14) 12 (6-14) Blood Urea Nitrogen 11 mg/dL (7-20) 12 mg/dL (7-20) 12 mg/dL (7-20) Creatinine 1.0 mg/dL (0.6-1.0) 0.9 mg/dL (0.6-1.0) 1.0 mg/dL (0.6-1.0) Estimated GFR (Cockcroft-Gault) 56.6 63.9 56.6 BUN/Creatinine Ratio 11 (6-20) 13 (6-20) Glucose Level 106 mg/dL (70-99) 101 mg/dL (70-99) 97 mg/dL (70-99) Calcium Level 9.5 mg/dL (8.5-10.1) 9.2 mg/dL (8.5-10.1) 9.7 mg/dL (8.5-10.1) Total Bilirubin 0.3 mg/dL (0.2-1.0) 0.3 mg/dL (0.2-1.0) Aspartate Amino Transf (AST/SGOT) 35 U/L (15-37) 35 U/L (15-37) Alanine Aminotransferase (ALT/SGPT) 52 U/L (14-59) 41 U/L (14-59) Alkaline Phosphatase 148 U/L (46-116) 145 U/L (46-116) Troponin I Quantitative < 0.017 ng/mL (0.000-0.055) YF-Lop-R-Type Natriuretic Peptide 97 pg/mL (0-124) Total Protein 6.8 g/dL (6.4-8.2) 6.4 g/dL (6.4-8.2) Albumin 3.3 g/dL (3.4-5.0) 3.0 g/dL (3.4-5.0) Albumin/Globulin Ratio 0.9 (1.0-1.7) 0.9 (1.0-1.7) Creatine Kinase 30 U/L (26-192) Vitamin B12 Level 179 pg/mL (247-911) Glucose (Fingerstick) 96 mg/dL (70-99) Laboratory Tests Test 05/21/19 15:04 05/22/19 03:50 Glucose (Fingerstick) 96 mg/dL (70-99) Sodium Level 143 mmol/L (136-145) Potassium Level 3.7 mmol/L (3.5-5.1) Chloride Level 102 mmol/L (98-107) Carbon Dioxide Level 29 mmol/L (21-32) Anion Gap 12 (6-14) Blood Urea Nitrogen 12 mg/dL (7-20) Creatinine 1.0 mg/dL (0.6-1.0) Estimated GFR (Cockcroft-Gault) 56.6 Glucose Level 97 mg/dL (70-99) Calcium Level 9.7 mg/dL (8.5-10.1) Medications Active Scripts Medications Dose Route/Sig Max Daily Dose Days Date Category Dose Instructions Albuterol Sulfate Neb Soln (Albuterol Sulfate) 0.63 Mg/3 Ml Vial.neb 1 Vial NEB PRN QID PRN 3 05/02/19 Rx Spiriva (Tiotropium [place]) 18 Mcg Cap.w.dev 1 Cap IH DAILY 30 05/02/19 Rx Hydrocodone-Apap 5-325 (Hydrocodone Bit/Acetaminophen) 1 Tab Tablet 1 Tab PO PRN Q4HRS PRN 03/27/19 Reported Proventil Hfa (Albuterol Sulfate) 6.7 Gm Hfa.aer.ad 2 Puff IH Q4-6HRS PRN MDD 6 puff 7 04/16/18 Rx Aspirin 325 Mg Tablet 1 Tab PO DAILY 04/15/17 Reported LAST DOSE GIVEN: DATE:04/15/17 TIME:9:00 a.m. Omeprazole 20 Mg Capsule. 1 Cap PO DAILY 04/12/17 Reported LAST DOSE GIVEN: DATE:04/15/17 TIME:9:00 a.m. Fluticasone Propionate Nasal [place] (Fluticasone Propionate) 16 Gm [place].susp 2 [place] NS DAILY 04/12/17 Reported LAST DOSE GIVEN: DATE:04/15/17 TIME:9:00 a.m. Losartan Potassium 100 Mg Tablet 100 Mg PO HS 04/12/17 Reported [Xysol] 1 Tab PO HS 04/04/17 Reported [Slow Mag] 325 238 Mg PO HS 04/04/17 Reported Trazodone Hcl 50 Mg Tablet 50 Mg PO DAILY PRN 07/19/16 Reported Cyclobenzaprine Hcl 10 Mg Tablet 1 Tab PO TID 07/19/16 Reported LAST DOSE GIVEN: DATE:04/15/17 TIME:2:00 p.m. Niaspan (Niacin) 500 Mg Tab.er.24h 500 Mg PO HS 12/19/14 Reported Fish Oil ([place]-3 Fatty Acids) 500 Mg Capsule. 1,400 Mg PO 11/07/13 Reported Fluoxetine Hcl 20 Mg Tablet 40 Mg PO DAILY 11/07/13 Reported LAST DOSE GIVEN: DATE:04/15/17 TIME: 9:00 a.m. Zolpidem Tartrate 10 Mg Tablet 10 Mg PO PRN QHS PRN 4/23/14 Reported Levothyroxine Sodium 125 Mcg Tablet 125 Mcg PO DAILY 06/18/13 Reported LAST DOSE GIVEN: DATE:04/15/17 TIME:7:30 a.m. Alprazolam 1 Mg Tablet 1 Mg PO DAILY PRN 06/18/13 Reported Meds not given this hospital admission. May resume home medications as approved by Physician. Impression . IMPRESSION: 1. Acute hypoxemic respiratory failure. 2. Jbyvy-pu-ljfxfpn diastolic heart failure. 3. Morbid obesity. 4. Suspect ulpod-nq-vgcnmyx cor pulmonale. 5. Suspect pulmonary hypertension. 6. Morbid obesity. 7. Obstructive sleep apnea. Plan . OUT PT SLEEP STUDY WITH CPAP TITRATION 1. Recommend diuresis. 2. Outpatient sleep study with CPAP titration. 3. Nebulized treatments. 4. Continue home medications. 5. No need for antibiotics. BEN WASHINGTON MD May 22, 2019 10:54
[2019-05-22 11:00] VITALS: BP 130/67
[2019-05-22] MEDS ORDERED: CYANOCOBALAMIN (VITAMIN B-12) 1,000 MCG/ML VIAL IM SCH (12:00)
[2019-05-22 12:05] LABS: AMPHETAMINE/METHAMPHETAMINE NEG (NEG); BARBITURATES NEG (NEG); BENZODIAZEPINES POS (NEG); CANNABINOIDS NEG (NEG); COCAINE NEG (NEG); METHADONE NEG (NEG); OPIATES POS (NEG); PHENCYCLIDINE NEG (NEG)
--- NOTE | 2019-05-22 13:20 | NUR ---
SW following pt. Discussed with pt about home health and pt reported she had used [facility] in the past. SW phoned and faxed orders to [facility]. A nurse from [facility] will see pt tomorrow. Pt stated her will be able to take her home. 6 min walk ordered to eval home 02 needs. Discussed with Physician.
[2019-05-22 15:00] VITALS: BP 110/83
--- NOTE | 2019-05-22 16:19 | PDOC ---
PROGRESS NOTES Assessment Assessment IMPRESSION: Coded stroke. Slurred and slowed speech. Right side facial drooping and left side weakness. Abdominal pain. Chest pain. SOB. Migraine headaches. HTN. HLD. Morbid obesity, BMI 55. Narcotic seeking. Conversion disorder. Vit B12 deficiency. No evidence of acute CVA this time after further neurological evaluation. RECOMMENDATIONS/PLAN: Continue ASA 325 mg daily. Vit B12 1 mg daily. Injection while here. Patient declined Statin. Treat medical diseases. Weight reduction. Diet. Exercise. OT/PT. Discussed in a great detail with her and her at bedside on 05/21/19. Brain MRI w/o contrast Stat on 05/21/19: No acute CVA. History of Present Illness This is a 58-year-old female who presented to the Emergency Department of [facility] with complaints of chest pain, shortness of breath and she was admitted into the hospital for further evaluation. She has history of migraine headaches and CVA like symptoms in reid past and she said she received TPA 2 times before. She knew she had HLD but declined Statin. She asked for pain medication for her chest pain. Around 3:00 pm, she noted her nurse of her new symptoms of slurred speech, slowed speech, and left side weakness stating unable to cone picker items by her left fingers. She was coded stroke. However, further neurological evaluation ruled out acute stroke. She then stated that all of her stroke symptoms resolved. Past Medical History Cardiovascular: HTN, Hyperlipidemia Pulmonary: No pertinent hx CENTRAL NERVOUS SYSTEM: TIA GI: Diverticulosis, Hemorrhoids, Peptic Ulcer disease Heme/Onc: No pertinent hx Hepatobiliary: No pertinent hx Psych: Anxiety Musculoskeletal: Osteoarthritis Rheumatologic: Fibromyalgia Infectious disease: No pertinent hx Endocrine: Hypothyroidism Past Surgical History Appendectomy, Cholecystectomy, Total knee replacement, Tonsillectomy, Hysterectomy Family History Heart Disease, Hypertension Allergies Coded Allergies: Prochlorperazine (Verified Adverse Reaction, Severe, 04/30/19) SKIN CRAWLING Gyrogth-Vmf-Jup Reductase Inhibitor (Verified Adverse Reaction, Intermediate, INCREASED LIVER ENZYMES, 03/29/19) MEDICATIONS: Refer to [facility] SOCIAL HISTORY: Lives at home. Denies current smoking, drinking, and illicit drug use. REVIEW OF SYSTEMS: Constitutional: Morbid obesity.. Head: No recent traumatic brain or head injury. Skin: No edema, or rash. Ear: No infection. Eyes: No vision loss or color blindness. Nose: No bleeding or purulent discharges. Hearing: No hearing decrease. Neck: No injury. Breast: No history of cancer, masses,or discharges. Cardiac: Chest pain. HTN, HLD. Pulmonary: No COPD. GI: No GI ulcer, GI bleeding. Urinary/genital: UTI. Endocrinologic: Morbid obesity. Skeletomuscular: Generalized weakness. Neurological: see HP. Psychiatric: Denies drug use/abuse. Otherwise, not [id number] review of systems. PHYSICAL EXAMINATION: General appearance is in subacute distress. HEENT: Normocephalic and nontraumatic. Eyes, nose, ears, and throat are unremarkable. Neck is supple. No lymphadenopathy. No bruits are heard over the carotid artery. No crepitus. Cardiovascular: S1, S2, regular rate and rhythm. Pulmonary: Clear to auscultation bilaterally. Abdomen: Bowel sounds are positive. Extremities: No rash, lesions, or edema. No restriction of range of motion NEUROLOGICAL EXAMINATION: Alert Talkative. No slurred speech or slowed speech appreciated at the time of neurological exam. Oriented to time, place and person. PERRL. EOMI. CN: no focal findings. Muscle tone: within normal. Muscle strength: 5 DTR: 0-1 due to morbid obesity. Plantar reflex: Flexor response bilaterally Gait: At her baseline normal. Sensory exam: no abnormal findings. No cerebellar signs elicited. F-T-N test accurate. No drift noted in UE or LE. Objective Objective Vital Signs Date Time Temp Pulse Resp B/P (MAP) Pulse Ox O2 Delivery O2 Flow Rate FiO2 05/22/19 15:25 Room Air 05/22/19 15:00 98.5 89 18 110/83 (92) 94 3.0 98.5 Intake and Output 05/22/19 07:00 Intake Total 1350 ml Balance 1350 ml Intake Oral 1350 ml # Voids 3 Vitals Signs Vitals VS - Last 72 Hours, by Label Date Time Temp Pulse Resp B/P (MAP) Pulse Ox O2 Delivery O2 Flow Rate FiO2 05/22/19 15:25 Room Air 05/22/19 15:00 98.5 89 18 110/83 (92) 94 Nasal Cannula 3.0 98.5 05/22/19 11:11 97 Nasal Cannula 4.0 05/22/19 11:00 97.6 79 18 130/67 (88) 97 Nasal Cannula 3.0 97.6 05/22/19 08:00 Nasal Cannula 2.0 05/22/19 07:37 96 Nasal Cannula 4.0 05/22/19 07:00 97.6 83 18 116/61 (79) 93 Nasal Cannula 3.0 97.6 05/22/19 03:35 97.9 80 18 127/46 (73) 97 Room Air 97.9 05/21/19 23:35 97.6 87 18 142/65 (90) 91 Room Air 97.6 05/21/19 21:38 94 Nasal Cannula 4.0 05/21/19 21:09 96 155/68 05/21/19 21:08 94 Nasal Cannula 4.0 05/21/19 20:06 94 Nasal Cannula 4.0 05/21/19 20:00 Nasal Cannula 4.0 05/21/19 19:35 97.7 96 18 155/68 (97) 94 Room Air 97.7 05/21/19 15:52 98.4 84 18 144/55 (84) 91 Room Air 98.4 05/21/19 12:46 94 Nasal Cannula 2.0 05/21/19 12:32 98 Nasal Cannula 2.0 05/21/19 12:02 98 Nasal Cannula 2.0 05/21/19 11:19 97.9 70 18 102/53 (69) 98 Room Air 97.9 05/21/19 08:55 98 Nasal Cannula 2.0 05/21/19 08:25 99 Nasal Cannula 2.0 05/21/19 08:00 Nasal Cannula 2.0 05/21/19 07:58 97.5 68 18 111/50 (70) 99 Room Air 97.5 Laboratory Laboratory Laboratory Tests Test 05/22/19 03:50 05/22/19 11:30 Sodium Level 143 mmol/L (136-145) Potassium Level 3.7 mmol/L (3.5-5.1) Chloride Level 102 mmol/L (98-107) Carbon Dioxide Level 29 mmol/L (21-32) Anion Gap 12 (6-14) Blood Urea Nitrogen 12 mg/dL (7-20) Creatinine 1.0 mg/dL (0.6-1.0) Estimated GFR (Cockcroft-Gault) 56.6 Glucose Level 97 mg/dL (70-99) Calcium Level 9.7 mg/dL (8.5-10.1) Urine Opiates Screen Pos (NEG) Urine Methadone Screen Neg (NEG) Urine Barbiturates Neg (NEG) Urine Phencyclidine Screen Neg (NEG) Urine Amphetamine/Methamphetamine Neg (NEG) Urine Benzodiazepines Screen Pos (NEG) Urine Cocaine Screen Neg (NEG) Urine Cannabinoids Screen Neg (NEG) Urine Ethyl Alcohol Neg (NEG) Medication Medications Current Medications Cetirizine HCl (ZyrTEC) 10 mg QHS PO Last administered on 05/21/19at 21:01; Start 05/21/19 at 21:00 Cyanocobalamin (Vitamin B-12) 1,000 mcg DAILY IM Last administered on 05/22/19at 15:49; Start 05/22/19 at 12:00 Furosemide (Lasix) 40 mg 1X ONCE IVP Last administered on 05/21/19at 18:52; Start 05/21/19 at 17:30; Stop 05/21/19 at 17:31; Status DC Losartan Potassium (Cozaar) 100 mg QHS PO Last administered on 05/21/19at 21:09; Start 05/21/19 at 21:00 Magnesium Chloride (Mag Delay) 192 mg QHS PO Last administered on 05/21/19at 21:00; Start 05/21/19 at 21:00 Niacin (Slo-Niacin) 500 mg HS PO Last administered on 05/21/19at 21:00; Start 05/21/19 at 21:00 Non-Formulary Medication (Tiotropium [place] (Spiriva)) 1 cap DAILY IH ; Start 05/22/19 at 09:00; Status UNV Comment Review of Relevant I have reviewed the following items radha (where applicable) has been applied. SANDRO CARVER MD May 22, 2019 16:19
== END 2019-05-22 18:59 | disposition home health service (06) | DRG 291 ==
LOC: ER 21:11 → 6 SOUTH 23:18
PROVIDERS: ADMIT Internal Medicine; ATTEND Internal Medicine
DX: I11.0 Hypertensive heart disease with heart failure (principal); J96.01 Acute respiratory failure with hypoxia; I26.09 Other pulmonary embolism with acute cor pulmonale; Z68.43 Body mass index [BMI] 50.0-59.9, adult; E03.9 Hypothyroidism, unspecified; I50.33 Acute on chronic diastolic (congestive) heart failure; E66.01 Morbid (severe) obesity due to excess calories; E78.00 Pure hypercholesterolemia, unspecified; E78.5 Hyperlipidemia, unspecified; F44.9 Dissociative and conversion disorder, unspecified; G43.909 Migraine, unspecified, not intractable, without status migrainosus; G89.29 Other chronic pain; G47.33 Obstructive sleep apnea (adult) (pediatric); J44.9 Chronic obstructive pulmonary disease, unspecified; K21.0 Gastro-esophageal reflux disease with esophagitis; K59.00 Constipation, unspecified; K74.60 Unspecified cirrhosis of liver; K76.0 Fatty (change of) liver, not elsewhere classified; M79.7 Fibromyalgia; R13.10 Dysphagia, unspecified; R29.810 Facial weakness; Z79.82 Long term (current) use of aspirin; Z79.890 Hormone replacement therapy; Z79.899 Other long term (current) drug therapy; Z82.3 Family history of stroke; Z82.49 Family history of ischemic heart disease and other diseases of the circulatory system; Z86.73 Personal history of transient ischemic attack (TIA), and cerebral infarction without residual deficits; Z87.19 Personal history of other diseases of the digestive system; Z87.891 Personal history of nicotine dependence; Z90.49 Acquired absence of other specified parts of digestive tract; Z90.710 Acquired absence of both cervix and uterus; Z96.653 Presence of artificial knee joint, bilateral; Z87.11 Personal history of peptic ulcer disease; F32.9 Major depressive disorder, single episode, unspecified; F41.9 Anxiety disorder, unspecified; K21.9 Gastro-esophageal reflux disease without esophagitis; K57.90 Diverticulosis of intestine, part unspecified, without perforation or abscess without bleeding; M19.90 Unspecified osteoarthritis, unspecified site
CPT/HCPCS: 36415; 70450; 70551; 71045; 80048; 80053; 80307; 82550; 82607; 82962; 83880; 84484; 85025; 85379; 93005; 94618; 94640; J1940; J2270; J3420; J7620; G0378

== ENCOUNTER → 2019-08-23 | Outpatient (CLI) | payer BC ==
[~2019-08-23] MED LIST changes: -CETI10TA22 PO; +CETI10TA24 PO; +FURO-68 PO; -OMEP20CA10 PO; +OMEP20CA16 PO; +POTA10TA12 PO
== END | disposition home or self-care (01) ==
LOC: LAB 15:33
PROVIDERS: ATTEND Orthopaedic Surgery
DX: T84.84XA Pain due to internal orthopedic prosthetic devices, implants and grafts, initial encounter (principal)
CPT/HCPCS: 36415; 85651; 86140

== ENCOUNTER → 2019-11-12 | Outpatient (CLI) | payer BC ==
[2019-09-25 11:00] VITALS: BP 154/87
[~2019-11-12] MED LIST changes: +NYST60PO TP; +OXYC1TAB22 PO
[2019-11-12 16:15] LABS: PROTHROMBIN TIME PATIENT 14.5 SEC (11.7-14.0)
[2019-11-12 16:16] LABS: CALCIUM 9.7 mg/dL (8.5-10.1); CREATININE 1.1 mg/dL (0.6-1.0); GFR 50.7; POTASSIUM 4.4 mmol/L (3.5-5.1)
[2019-11-13 03:07] LABS: HEMOGLOBIN A1C 4.9 % (4.8-5.6)
== END | disposition home or self-care (01) ==
LOC: SURGPAT 14:38
PROVIDERS: ATTEND Orthopaedic Surgery
DX: Z01.818 Encounter for other preprocedural examination (principal); S76.111A Strain of right quadriceps muscle, fascia and tendon, initial encounter; X58.XXXA Exposure to other specified factors, initial encounter; Y93.89 Activity, other specified; Y92.89 Other specified places as the place of occurrence of the external cause; Y99.8 Other external cause status
CPT/HCPCS: 36415; 80048; 82040; 82306; 83036; 85610; 85651; 85730; 87641

== ENCOUNTER → 2019-11-13 | Day surgery (SDC) | payer BC ==
[~2019-11-13] VITALS: Ht 167.6 cm; Wt 153.8 kg
[~2019-11-13] MED LIST changes: +ACETAMINOPHEN 500 MG TABLET PO PRN; +CELECOXIB 100 MG CAPSULE. PO PRN; +DEXAMETHASONE SOD PHOS 4 MG/ML VIAL ONE; +HYDROmorphone 2 MG/ML VIAL IV PRN; +IV RINGERS,LACTATED 1000ML 1,000 ML IV SCH; +LIDOCAINE 2% PF 5 ML VIAL. ONE; +MORPHINE SULFATE 2 MG/ML VIAL. IV PRN; +ONDANSETRON PF 4 MG/2 ML VIAL. IV PRN; +ONDANSETRON PF 4 MG/2 ML VIAL. IVP PRN; +ONDANSETRON PF 4 MG/2 ML VIAL. ONE; +PROPOFOL 0 ML IV ONE; +ROCURONIUM 50 MG/5 ML VIAL. ONE; +TRANEXAMIC ACID 1,000 MG in IV NS 50ML -- 1ST BAG INJ ONE; +TV=100ml MORPHINE 5 MG, KETOROLAC 30 MG, ROPIVacaine 0.5% PF 60 ML, EPINEPH... INT ART ONE; +fentaNYL PF VIAL 100 MCG/2 ML VIAL IV PRN; +fentaNYL PF VIAL 100 MCG/2 ML VIAL ONE
[2019-11-13 08:14] VITALS: BP 144/68
[2019-11-13 08:40] LABS: BASO % 1 % (0-3); EOS # 0.1 x10^3/uL (0.0-0.7); EOS % 3 % (0-3); HEMATOCRIT 37.7 % (36.0-47.0); LYMPH # 1.3 x10^3/uL (1.0-4.8); LYMPH % 25 % (24-48); MEAN CORPUSCULAR HEMOGLOBIN 26 pg (25-35); MEAN CORPUSCULAR HGB CONC 32 g/dL (31-37); MEAN CORPUSCULAR VOLUME 81 fL (79-100); MONO # 0.6 x10^3/uL (0.0-1.1); MONO % 11 % (0-9); NEUT # 3.1 x10^3/uL (1.8-7.7); NEUT % 61 % (31-73); PLATELET COUNT 254 x10^3/uL (140-400); RED BLOOD COUNT 4.65 x10^6/uL (3.50-5.40); RED CELL DISTRIBUTION WIDTH 15.1 % (11.5-14.5); WHITE BLOOD COUNT 5.1 x10^3/uL (4.0-11.0)
--- NOTE | 2019-11-13 09:14 | NUR ---
C/O NAUSEA. ANESTHESIA PAGED. ORDERS RECEIVED. ZOFRAN 4MG GIVEN IVP.
--- NOTE | 2019-11-13 11:00 | NUR ---
SURGERY CANCELLED DUE TO GRAFT NOT AVAILABLE. TO BE RESCHEDULED. IV DC'D AND PT DISMISSED.
== END ==
LOC: SURG 07:36
PROVIDERS: ATTEND Orthopaedic Surgery
DX: M25.561 Pain in right knee (principal); Z53.9 Procedure and treatment not carried out, unspecified reason; K21.9 Gastro-esophageal reflux disease without esophagitis; G43.909 Migraine, unspecified, not intractable, without status migrainosus; I10 Essential (primary) hypertension; E78.00 Pure hypercholesterolemia, unspecified; J44.9 Chronic obstructive pulmonary disease, unspecified; M79.7 Fibromyalgia; E11.9 Type 2 diabetes mellitus without complications; E03.9 Hypothyroidism, unspecified; D64.9 Anemia, unspecified; F41.9 Anxiety disorder, unspecified; F32.9 Major depressive disorder, single episode, unspecified; K57.30 Diverticulosis of large intestine without perforation or abscess without bleeding; E66.9 Obesity, unspecified; Z68.43 Body mass index [BMI] 50.0-59.9, adult; Z86.010 Personal history of colon polyps; Z90.49 Acquired absence of other specified parts of digestive tract; Z87.39 Personal history of other diseases of the musculoskeletal system and connective tissue; Z86.73 Personal history of transient ischemic attack (TIA), and cerebral infarction without residual deficits; Z87.01 Personal history of pneumonia (recurrent); Z87.891 Personal history of nicotine dependence; Z79.84 Long term (current) use of oral hypoglycemic drugs; Z90.710 Acquired absence of both cervix and uterus; Z90.721 Acquired absence of ovaries, unilateral
CPT/HCPCS: 36415; 85025; 86850; 86900; 86901; J0171; J1885; J2270; J2405; J2795; J3490; J1100; J2704; J3010

== ENCOUNTER → 2020-01-04 | Outpatient (CLI) | payer BC ==
[2019-11-13 08:14] VITALS: BP 144/68
[~2020-01-04] MED LIST changes: -ACETAMINOPHEN 500 MG TABLET PO PRN; -CELECOXIB 100 MG CAPSULE. PO PRN; -DEXAMETHASONE SOD PHOS 4 MG/ML VIAL ONE; +HYDR-2769 PO; -HYDROmorphone 2 MG/ML VIAL IV PRN; -IV RINGERS,LACTATED 1000ML 1,000 ML IV SCH; -LIDOCAINE 2% PF 5 ML VIAL. ONE; -MORPHINE SULFATE 2 MG/ML VIAL. IV PRN; -ONDANSETRON PF 4 MG/2 ML VIAL. IV PRN; -ONDANSETRON PF 4 MG/2 ML VIAL. IVP PRN; -ONDANSETRON PF 4 MG/2 ML VIAL. ONE; -PROPOFOL 0 ML IV ONE; -ROCURONIUM 50 MG/5 ML VIAL. ONE; -TRANEXAMIC ACID 1,000 MG in IV NS 50ML -- 1ST BAG INJ ONE; -TV=100ml MORPHINE 5 MG, KETOROLAC 30 MG, ROPIVacaine 0.5% PF 60 ML, EPINEPH... INT ART ONE; -fentaNYL PF VIAL 100 MCG/2 ML VIAL IV PRN; -fentaNYL PF VIAL 100 MCG/2 ML VIAL ONE
[2020-01-04 14:19] LABS: BASO # 0.1 x10^3/uL (0.0-0.2); BASO % 1 % (0-3); EOS # 0.1 x10^3/uL (0.0-0.7); EOS % 2 % (0-3); HEMATOCRIT 41.7 % (36.0-47.0); HEMOGLOBIN 13.7 g/dL (12.0-15.5); LYMPH # 1.2 x10^3/uL (1.0-4.8); LYMPH % 17 % (24-48); MEAN CORPUSCULAR HEMOGLOBIN 26 pg (25-35); MEAN CORPUSCULAR HGB CONC 33 g/dL (31-37); MEAN CORPUSCULAR VOLUME 78 fL (79-100); MONO # 0.3 x10^3/uL (0.0-1.1); MONO % 4 % (0-9); NEUT # 5.5 x10^3/uL (1.8-7.7); NEUT % 77 % (31-73); PLATELET COUNT 225 x10^3/uL (140-400); RED BLOOD COUNT 5.33 x10^6/uL (3.50-5.40); RED CELL DISTRIBUTION WIDTH 15.7 % (11.5-14.5); WHITE BLOOD COUNT 7.2 x10^3/uL (4.0-11.0)
[2020-01-04 14:28] LABS: PROTHROMBIN TIME PATIENT 13.5 SEC (11.7-14.0)
[2020-01-04 14:35] LABS: ALBUMIN 3.8 g/dL (3.4-5.0); CALCIUM 9.9 mg/dL (8.5-10.1); CREATININE 1.1 mg/dL (0.6-1.0); GFR 50.5; POTASSIUM 5.1 mmol/L (3.5-5.1)
[2020-01-05 01:08] LABS: HEMOGLOBIN A1C 5.1 % (4.8-5.6)
== END | disposition home or self-care (01) ==
LOC: SURGPAT 13:10
PROVIDERS: ATTEND Orthopaedic Surgery
DX: Z01.818 Encounter for other preprocedural examination (principal); Z11.59 Encounter for screening for other viral diseases; M66.251 Spontaneous rupture of extensor tendons, right thigh
CPT/HCPCS: 36415; 80048; 82040; 82306; 83036; 85025; 85610; 85730; 86140; 87641; U0003; C9803-CS

== ENCOUNTER 2020-02-23 05:26 | Inpatient (IN) | payer BC ==
[2020-02-23] VITALS (7 sets, daily range): BP systolic 113–143; BP diastolic 52–77
[~2020-02-23] VITALS: Ht 162.6 cm; Wt 138.2 kg
[~2020-02-23 05:26] MED LIST changes: -CETI10TA24 PO; +CETI10TA74 PO
--- NOTE | 2020-02-23 06:22 | PHYS DOC ---
Past Medical History Past Medical History: Anemia, Anxiety, Depression, Diverticulosis, Fibrom yalgia, GERD, High Cholesterol, Hypertension, Migraines, Ovarian Cyst, TIA Additional Past Medical Histor: ELMER,SHINGLES,PEPTIC ULCER, COLON POLYPS,primary biliary cirrhosis Past Surgical History: Appendectomy, Cholecystectomy, Hysterectomy, Knee Replacement, Oophorectomy, Tonsillectomy Additional Past Surgical Histo: BILAT KNEE REPLACEMENTS Smoking Status: Former Smoker Alcohol Use: None Drug Use: None General Adult EDM: Chief Complaint: SYNCOPE HPI: HPI: Patient is a 59 year old female who was in her normal state of health until she was walking to the bathroom this morning and felt lightheaded and had a syncopal event hitting her head. Patient does not exactly remember events around event. Complains moderate occipital nonradiating throbbing headache. Patient denies any recent illnesses. No fever no cough no vomiting no diarrhea no blood in the stool. Patient arrived with c-collar in place. No other injuries. Review of Systems: Review of Systems: Constitutional: Denies fever or chills. [] Eyes: Denies change in visual acuity. [] HENT: Denies nasal congestion or sore throat. [] Respiratory: Denies cough or shortness of breath. [] Cardiovascular: Denies chest pain or edema. [] GI: Denies abdominal pain, nausea, vomiting, bloody stools or diarrhea. [] : Denies dysuria. [] Musculoskeletal: Denies back pain or joint pain. [] Integument: Denies rash. [] Neurologic: Complains of headache but no focal weakness Endocrine: Denies polyuria or polydipsia. [] Lymphatic: Denies swollen glands. [] Psychiatric: Denies depression or anxiety. [] Heart Score: Risk Factors: Risk Factors: DM, Current or recent (<one month) smoker, HTN, HLP, family history of CAD, obesity. Risk Scores: Score 0 - 3: 2.5% MACE over next 6 weeks - Discharge Home Score 4 - 6: 20.3% MACE over next 6 weeks - Admit for Clinical Observation Score 7 - 10: 72.7% MACE over next 6 weeks - Early Invasive Strategies Allergies: Allergies: Allergies Coded Allergies Type Severity Reaction Last Updated Verified celecoxib Allergy Mild 01/08/20 Yes I S O L A T I O N *CONTACT* Allergy Unknown 01/08/20 Yes acetaminophen Adverse Reaction Severe HAS FATTY LIVER AND PBC: LIMITED INTAKE PLEASE 01/08/20 Yes prochlorperazine Adverse Reaction Severe 01/08/20 Yes Bigdags-Fcj-Dup Reductase Inhibitor Adverse Reaction Intermediate INCREASED LIVER ENZYMES 01/08/20 Yes Physical Exam: PE: Constitutional: Well developed, well nourished, no acute distress, non-toxic appearance. [] HENT: Tender to palpate occipital area bilateral external ears normal, oropharynx moist, no oral exudates, nose normal. [] Eyes: PERRLA, EOMI, conjunctiva normal, no discharge. [] Neck: C-collar in place, no tenderness Cardiovascular:Heart rate regular rhythm, no murmur [] Lungs & Thorax: Bilateral breath sounds clear to auscultation [] Abdomen: Bowel sounds normal, soft, no tenderness, no masses, no pulsatile masses. [] Skin: Warm, dry, no erythema, no rash. [] Back: Tender to palpate lumbar area Extremities: No tenderness, no cyanosis, no clubbing, ROM intact, no edema. [] Neurologic: Alert and oriented X 3, normal motor function, normal sensory function, no focal deficits noted. [] Psychologic: Affect normal, judgement normal, mood normal. [] Current Patient Data: Labs: Laboratory Tests Test 02/23/20 05:47 02/23/20 06:35 White Blood Count 3.4 x10^3/uL Red Blood Count 4.48 x10^6/uL Hemoglobin 11.8 g/dL Hematocrit 36.6 % Mean Corpuscular Volume 82 fL Mean Corpuscular Hemoglobin 26 pg Mean Corpuscular Hemoglobin Concent 32 g/dL Red Cell Distribution Width 16.1 % Platelet Count 207 x10^3/uL Neutrophils (%) (Auto) 44 % Lymphocytes (%) (Auto) 41 % Monocytes (%) (Auto) 9 % Eosinophils (%) (Auto) 5 % Basophils (%) (Auto) 1 % Neutrophils # (Auto) 1.5 x10^3/uL Lymphocytes # (Auto) 1.4 x10^3/uL Monocytes # (Auto) 0.3 x10^3/uL Eosinophils # (Auto) 0.2 x10^3/uL Basophils # (Auto) 0.0 x10^3/uL Sodium Level 140 mmol/L Potassium Level 4.2 mmol/L Chloride Level 102 mmol/L Carbon Dioxide Level 32 mmol/L Anion Gap 6 Blood Urea Nitrogen 6 mg/dL Creatinine 0.9 mg/dL Estimated GFR (Cockcroft-Gault) 63.7 BUN/Creatinine Ratio 7 Glucose Level 101 mg/dL Calcium Level 9.4 mg/dL Magnesium Level 1.7 mg/dL Total Bilirubin 0.5 mg/dL Aspartate Amino Transf (AST/SGOT) 58 U/L Alanine Aminotransferase (ALT/SGPT) 46 U/L Alkaline Phosphatase 167 U/L Creatine Kinase 31 U/L Troponin I Quantitative < 0.017 ng/mL TX-Bhf-N-Type Natriuretic Peptide 87 pg/mL Total Protein 6.6 g/dL Albumin 3.1 g/dL Albumin/Globulin Ratio 0.9 Bedside Troponin I 0.00 ng/ml Vital Signs: Vital Signs Date Time Temp Pulse Resp B/P (MAP) Pulse Ox O2 Delivery O2 Flow Rate FiO2 02/23/20 05:29 98.3 71 18 177/72 (107) 98 Nasal Cannula 3.0 98.3 EKG: EKG: [] EKG interpreted by ok normal sinus rhythm with a rate of 71 normal axis normal intervals normal ST segments Radiology/Procedures: Radiology/Procedures: [][facility] [address] [facility] [place] [address] IMAGING REPORT Signed PATIENT: LULU WEINBERG ACCOUNT: [id number] : 1960 LOCATION: ER AGE: 59 SEX: F EXAM STATUS: PRE ER ORD. PHYSICIAN: DELANEY GEORGE MD REASON: fall, syncope PROCEDURE: PORTABLE CHEST 1V Single view chest dated 02/23/2020: Comparison: 09/12/2019. Clinical Indication: Pain after fall. Findings: Single supine portable exam of the chest was performed. Heart and mediastinal contours are stable. Mildly prominent interstitial markings throughout both lungs, similar to prior study. No consolidation or pleural effusion. No pneumothorax. Impression:: No acute radiographic abnormality. Stable findings compared to 09/12/2019 Electronically signed by: Geoffrey Aburto MD (02/23/2020 7:14 AM) [id number] DICTATED and SIGNED BY: GEOFFREY ABURTO MD DATE: 02/23/2014 [facility] [address] [place] [address] IMAGING REPORT Signed PATIENT: LULU WEINBERG ACCOUNT: [id number] : 1960 LOCATION: ER AGE: 59 SEX: F EXAM STATUS: PRE ER ORD. PHYSICIAN: DELANEY GEORGE MD REASON: fall PROCEDURE: CT HEAD AND CERVICAL SPINE WO CT HEAD AND CERVICAL SPINE WO dated 02/23/2020 6:14 AM. Comparison: 05/21/2019 Clinical Indication: Reason: fall / Spl. Instructions: / History: , HEAD AND NECK PAIN Technical factors: Contiguous 5 mm axial images of the head were obtained from the skullbase to the vertex. No contrast was administered. In addition, 3 mm axial images of the cervical spine were acquired with thin cut coronal and sagittal reconstructions. One or more of the following individualized dose reduction techniques were utilized for this examination: 1. Automated exposure control 2. Adjustment of the mA and/or kV according to patient size 3. Use of iterative reconstruction technique Findings head: Ventricles and sulci are within normal limits for age. No midline shift or mass effect. Brain parenchyma is of normal attenuation. No hemorrhage or extra-axial collection. Posterior fossa and brainstem unremarkable. Visualized paranasal sinuses and mastoid air cells are clear. No apparent calvarial abnormality. IMPRESSION HEAD: No evidence of acute intracranial abnormality. Findings cervical spine: Images were acquired from the skull base to T2. There is straightening of the normal cervical lordosis, otherwise sagittal alignment is anatomic. Vertebral body heights are maintained. No prevertebral soft tissue swelling. Posterior elements are intact. No fractures are identified. Mild endplate hypertrophic changes throughout. Mild disc space narrowing C6-C7 and C7-T1. Minimal uncovertebral spurring and facet arthropathy. No apparent focal disc herniation. The bony canal and foramen appear adequate. No significant soft tissue abnormality. Limited images of lung apices are clear. IMPRESSION CERVICAL SPINE: 1. No evidence of fracture or malalignment. 2. Mild multilevel spondylosis. Electronically signed by: Geoffrey Aburto MD (02/23/2020 7:09 AM) [id number] DICTATED and SIGNED BY: GEOFFREY ABURTO MD DATE: 02/23/20708 [facility] [address] [place] [address] IMAGING REPORT Signed PATIENT: LULU WEINBERG ACCOUNT: [id number] : 1960 LOCATION: ER AGE: 59 SEX: F EXAM STATUS: PRE ER ORD. PHYSICIAN: DELANEY GEORGE MD REASON: fall PROCEDURE: CT LUMBAR SPINE WO CONTRAST CT LUMBAR SPINE WO CONTRAST dated 02/23/2020 6:42 AM Indication:Pain after injury.Reason: fall / Spl. Instructions: / History: . Comparison: None Technique: Contiguous axial imaging of lumbar spine performed with thin cut coronal and sagittal reconstruction One or more of the following individualized dose reduction techniques were utilized for this examination: 1. Automated exposure control 2. Adjustment of the mA and/or kV according to patient size 3. Use of iterative reconstruction technique Findings: Sagittal alignment is anatomic. Vertebral body heights are maintained. Posterior elements are intact. No evidence of fracture. Mild endplate hypertrophic changes throughout, most severe at L4-L5 and L5-S1. Mild to moderate arthrosis of the lower lumbar apophyseal joints. There is resultant mild central stenosis at L4-L5 and L5-S1 with moderate bilateral foraminal narrowing at L4-L5. Mild bilateral foraminal narrowing at L5-S1. Images of the retroperitoneum show no significant abnormality. Urinary bladder is distended. Uterus is surgically absent. IMPRESSION: 1. No evidence of fracture or malalignment. 2. Moderate lower lumbar spondylosis. 3. Distended urinary bladder. Electronically signed by: Geoffrey Aburto MD (02/23/2020 7:12 AM) [id number] DICTATED and SIGNED BY: GEOFFREY ABURTO MD DATE: 02/23/20711 Course & Med Decision Making: Course & Med Decision Making Pertinent Labs and Imaging studies reviewed. (See chart for details) [] 59-year-old female presents with syncope and a head injury. Imaging is negative. Head CT was done due to a syncopal event and the head trauma and the patient over 58. Patient resting comfortably on reassessment. Will place the patient observation to Dr. Guy for cardiac monitoring. Patient otherwise stable Jennifer Disclaimer: Jennifer Disclaimer: This electronic medical record was generated, in whole or in part, using a voice recognition dictation system. Departure Departure Impression: Primary Impression: Syncope Additional Impressions: Head injury Contusion of lower back Disposition: ADMITTED INPATIENT Admitting Physician: VENECIA Sheridan) Condition: STABLE Referrals: RUTH PEREZ (PCP) Justicifation of Admission Dx: Justifications for Admission: Justification of Admission Dx: Yes CHF: Hemodynamic Instability DELANEY GEORGE MD Feb 23, 2020 06:22
[2020-02-23 06:33] LABS: BASO % 1 % (0-3); EOS # 0.2 x10^3/uL (0.0-0.7); EOS % 5 % (0-3); HEMATOCRIT 36.6 % (36.0-47.0); HEMOGLOBIN 11.8 g/dL (12.0-15.5); LYMPH # 1.4 x10^3/uL (1.0-4.8); LYMPH % 41 % (24-48); MEAN CORPUSCULAR HEMOGLOBIN 26 pg (25-35); MEAN CORPUSCULAR HGB CONC 32 g/dL (31-37); MEAN CORPUSCULAR VOLUME 82 fL (79-100); MONO # 0.3 x10^3/uL (0.0-1.1); MONO % 9 % (0-9); NEUT # 1.5 x10^3/uL (1.8-7.7); NEUT % 44 % (31-73); PLATELET COUNT 207 x10^3/uL (140-400); RED BLOOD COUNT 4.48 x10^6/uL (3.50-5.40); RED CELL DISTRIBUTION WIDTH 16.1 % (11.5-14.5); WHITE BLOOD COUNT 3.4 x10^3/uL (4.0-11.0)
[2020-02-23 06:41] LABS: CALCIUM 9.4 mg/dL (8.5-10.1); CREATININE 0.9 mg/dL (0.6-1.0); GFR 63.7; POTASSIUM 4.2 mmol/L (3.5-5.1)
[2020-02-23 06:48] LABS: ALBUMIN 3.1 g/dL (3.4-5.0); ALBUMIN/GLOBULIN RATIO 0.9 (1.0-1.7); MAGNESIUM 1.7 mg/dL (1.8-2.4); TOTAL BILIRUBIN 0.5 mg/dL (0.2-1.0); TOTAL PROTEIN 6.6 g/dL (6.4-8.2)
--- NOTE | 2020-02-23 07:12 | RAD ---
CT HEAD AND CERVICAL SPINE WO dated 02/23/2020 6:14 AM. Comparison: 05/21/2019 Clinical Indication: Reason: fall / Spl. Instructions: / History: , HEAD AND NECK PAIN Technical factors: Contiguous 5 mm axial images of the head were obtained from the skullbase to the vertex. No contrast was administered. In addition, 3 mm axial images of the cervical spine were acquired with thin cut coronal and sagittal reconstructions. One or more of the following individualized dose reduction techniques were utilized for this examination: 1. Automated exposure control 2. Adjustment of the mA and/or kV according to patient size 3. Use of iterative reconstruction technique Findings head: Ventricles and sulci are within normal limits for age. No midline shift or mass effect. Brain parenchyma is of normal attenuation. No hemorrhage or extra-axial collection. Posterior fossa and brainstem unremarkable. Visualized paranasal sinuses and mastoid air cells are clear. No apparent calvarial abnormality. IMPRESSION HEAD: No evidence of acute intracranial abnormality. Findings cervical spine: Images were acquired from the skull base to T2. There is straightening of the normal cervical lordosis, otherwise sagittal alignment is anatomic. Vertebral body heights are maintained. No prevertebral soft tissue swelling. Posterior elements are intact. No fractures are identified. Mild endplate hypertrophic changes throughout. Mild disc space narrowing C6-C7 and C7-T1. Minimal uncovertebral spurring and facet arthropathy. No apparent focal disc herniation. The bony canal and foramen appear adequate. No significant soft tissue abnormality. Limited images of lung apices are clear. IMPRESSION CERVICAL SPINE: 1. No evidence of fracture or malalignment. 2. Mild multilevel spondylosis. Electronically signed by: Geoffrey Aburto MD (02/23/2020 7:09 AM) [id number]
--- NOTE | 2020-02-23 07:15 | RAD ---
CT LUMBAR SPINE WO CONTRAST dated 02/23/2020 6:42 AM Indication:Pain after injury.Reason: fall / Spl. Instructions: / History: . Comparison: None Technique: Contiguous axial imaging of lumbar spine performed with thin cut coronal and sagittal reconstruction One or more of the following individualized dose reduction techniques were utilized for this examination: 1. Automated exposure control 2. Adjustment of the mA and/or kV according to patient size 3. Use of iterative reconstruction technique Findings: Sagittal alignment is anatomic. Vertebral body heights are maintained. Posterior elements are intact. No evidence of fracture. Mild endplate hypertrophic changes throughout, most severe at L4-L5 and L5-S1. Mild to moderate arthrosis of the lower lumbar apophyseal joints. There is resultant mild central stenosis at L4-L5 and L5-S1 with moderate bilateral foraminal narrowing at L4-L5. Mild bilateral foraminal narrowing at L5-S1. Images of the retroperitoneum show no significant abnormality. Urinary bladder is distended. Uterus is surgically absent. IMPRESSION: 1. No evidence of fracture or malalignment. 2. Moderate lower lumbar spondylosis. 3. Distended urinary bladder. Electronically signed by: Geoffrey Aburto MD (02/23/2020 7:12 AM) [id number]
--- NOTE | 2020-02-23 07:17 | RAD ---
Single view chest dated 02/23/2020: Comparison: 09/12/2019. Clinical Indication: Pain after fall. Findings: Single supine portable exam of the chest was performed. Heart and mediastinal contours are stable. Mildly prominent interstitial markings throughout both lungs, similar to prior study. No consolidation or pleural effusion. No pneumothorax. Impression:: No acute radiographic abnormality. Stable findings compared to 09/12/2019 Electronically signed by: Geoffrey Aburto MD (02/23/2020 7:14 AM) [id number]
--- NOTE | 2020-02-23 07:43 | PDOC1 ---
History and Physical Date of Admission Date of Admission DATE: 02/23/20 TIME: 07:41 Identification/Chief Complaint Chief Complaint Syncope Source Source: Caregiver, Patient History of Present Illness History of Present Illness Ms Ng is a 58 yo F w/ PMHx hypertension, hyperlipidemia with a TIA, migraines, Primary biliary cirrhosis, anxiety, depression, osteoarthritis, fibromyalgia, hypothyroidism, GERD, diverticulosis, hemorrhoids, fatty liver who presented to the ER on 02/23/2020 with complaints of syncope and a head injury in her kitchen. Her heard her fall. She notes 1 minutes LOC. Imaging is negative. Head CT was done due to a syncopal event and the head trauma and the patient over 58. Patient resting comfortably on reassessment. EKG normal sinus rhythm with a rate of 71 normal axis normal intervals normal ST segments. Labs with WBC 3.4, Hb 11.8, platelets 207, magnesium 1.7, alkaline phosphatase 167, AST 58 d-dimer 2.51 Does complain of a little bit of right knee pain and some significant right ankle pain and swelling. She notes she was just taken out of her right knee immobilizer recently by orthopedic surgery and did not know if she supposed to continue using her walker or not and she has not been using her walker at home. Admitted for observation. Past Medical History Cardiovascular: HTN, Hyperlipidemia Pulmonary: No pertinent hx CENTRAL NERVOUS SYSTEM: TIA GI: Diverticulosis, Hemorrhoids, Peptic Ulcer disease Heme/Onc: No pertinent hx Hepatobiliary: No pertinent hx Psych: Anxiety Musculoskeletal: Osteoarthritis Rheumatologic: Fibromyalgia Infectious disease: No pertinent hx Endocrine: Hypothyroidism Past Surgical History Past Surgical History: Appendectomy, Cholecystectomy, Total knee replacement, Tonsillectomy, Hysterectomy Family History Family History: Heart Disease, Hypertension Social History Smoke: No ALCOHOL: none Drugs: None Current Problem List Problem List Problems Medical Problems: (1) Contusion of lower back Status: Acute (2) Head injury Status: Acute (3) Syncope Status: Acute Current Medications Current Medications Current Medications Ondansetron HCl (Zofran) 4 mg PRN Q8HRS PRN IV NAUSEA/VOMITING; Start 02/23/20 at 07:45; Stop 02/24/20 at 07:44 Active Scripts Active Nystop (Nystatin) 60 Gm Powder 1 Nina TP BID 30 Days use topically twice a day to affected area Reported Hydrocodone-Apap 10-325 (Hydrocodone Bit/Acetaminophen) 1 Tab Tablet 1 Tab PO PRN Q6HRS PRN Aspirin 325 Mg Tablet 1 Tab PO DAILY LAST DOSE GIVEN: DATE:04/15/17 TIME:9:00 a.m. Omeprazole 20 Mg Capsule. 1 Cap PO DAILY LAST DOSE GIVEN: DATE:04/15/17 TIME:9:00 a.m. Fluticasone Propionate Nasal Brantley (Fluticasone Propionate) 16 Gm Brantley.susp 2 Brantley NS DAILY LAST DOSE GIVEN: DATE:04/15/17 TIME:9:00 a.m. Losartan Potassium 100 Mg Tablet 100 Mg PO HS [Xysol] 1 Tab PO HS Trazodone Hcl 50 Mg Tablet 50 Mg PO DAILY PRN Cyclobenzaprine Hcl 10 Mg Tablet 1 Tab PO TID LAST DOSE GIVEN: DATE:04/15/17 TIME:2:00 p.m. Niaspan (Niacin) 500 Mg Tab.er.24h 500 Mg PO HS Fish Oil (Orange-3 Fatty Acids) 500 Mg Capsule.dr Dawson,400 Mg PO Fluoxetine Hcl 20 Mg Tablet 40 Mg PO DAILY LAST DOSE GIVEN: DATE:04/15/17 TIME: 9:00 a.m. Levothyroxine Sodium 125 Mcg Tablet 125 Mcg PO DAILY LAST DOSE GIVEN: DATE:04/15/17 TIME:7:30 a.m. Alprazolam 1 Mg Tablet 1 Mg PO DAILY PRN Meds not given this hospital admission. May resume home medications as approved by Physician. Allergies Allergies: Coded Allergies: celecoxib (Verified Allergy, Mild, 01/08/20) GI UPSET STOMACH I S O L A T I O N *CONTACT* (Verified Allergy, Unknown, 01/08/20) ESBL acetaminophen (Verified Adverse Reaction, Severe, HAS FATTY LIVER AND PBC: LIMITED INTAKE PLEASE, 02/23/20) Cannot take d/t Primary Biliary Cirrhosis [facility] IS HOME MED prochlorperazine (Verified Adverse Reaction, Severe, 01/08/20) SKIN CRAWLING Vtcnfnh-Owt-Rnu Reductase Inhibitor (Verified Adverse Reaction, Intermediate, INCREASED LIVER ENZYMES, 01/08/20) ROS General: YES: Fatigue, Malaise; No: Chills, Night Sweats, Appetite, Other PSYCHOLOGICAL ROS: YES: Anxiety; No: Behavioral Disorder, Concentration difficultie, Decreased libido, D epression, Disorientation, Hallucinations, Hostility, Irritablity, Memory difficulties, Mood Swings, Obsessive thoughts, Physical abuse, Sexual abuse, Sleep disturbances, Suicidal ideation, Other Eyes: No Blurry vision, No Decreased vision, No Double vision, No Dry eyes, No Excessive tearing, No Eye Pain, No Itchy Eyes, No Loss of vision, No Photophobia, No Scotomata, No Uses contacts, No Uses glasses, No Other HEENT: No: Heacaches, Visual Changes, Hearing change, Nasal congestion, Nasal discharge, Oral lesions, Sinus pain, Sore Throat, Epistaxis, Sneezing, Snoring, Tinnitus, Vertigo, Vocal changes, Other ALLERGY AND IMMUNOLOGY: No: Hives, Insect Bite Sensitivity, Itchy/Watery Eyes, Nasal Congestion, Post Nasal Drip, Seasonal Allergies, Other Hematological and Lymphatic: No: Bleeding Problems, Blood Clots, Blood Transfusions, Brusing, Night Sweats, Pallor, Swollen Lymph Nodes, Other ENDOCRINE: No: Breast Changes, Galactorrhea, Hair Pattern Changes, Hot Flashes, Malaise/lethargy, Mood Swings, Palpitations, Polydipsia/polyuria, Skin Changes, Temperature Intolerance, Unexpected Weight Changes, Other Breast: No New/Changing Breast Lumps, No Nipple changes, No Nipple discharge, No Other Respiratory: No: Cough, Hemoptysis, Orthopnea, Pleuritic Pain, Shortness of breath, SOB with excertion, Sputum Changes, Stridor, Tachypnea, Wheezing, Other Cardiovascular: No Chest Pain, No Palpitations, No Orthopnea, No Paroxysmal Noc. Dyspnea, No Edema, No Lt Headedness, No Other Gastrointestinal: No Nausea, No Vomiting, No Abdominal Pain, No Diarrhea, No Constipation, No Melena, No Hematochezia, No Other Genitourinary: No Dysuria, No Frequency, No Incontinence, No Hematuria, No Retention, No Discharge, No Urgency, No Pain, No Flank Pain, No Other, No , No , No , No , No , No , No Musculoskeletal: Yes Gait Disturbance; No Joint Pain, No Joint Stiffness, No Joint Swelling, No Muscle Pain, No Muscular Weakness, No Pain In:, No Swelling In:, No Other Neurological: Yes Gait Disturbance; No Behavorial Changes, No Bowel/Bladder ControlChng, No Confusion, No Dizziness, No Headaches, No Impaired Coord/balance, No Memory Loss, No Numbness/Tingling, No Seizures, No Speech Problems, No Tremors, No Visual Changes, No Weakness, No Other Skin: No Dry Skin, No Eczema, No Hair Changes, No Lumps, No Mole Changes, No Mottling, No Nail Changes, No Pruritus, No Rash, No Skin Lesion Changes, No Other, No Acne Physical Exam General: Alert, Oriented X3, Cooperative, mild distress HEENT: Atraumatic, PERRLA, EOMI, Mucous membr. moist/pink Lungs: Clear to auscultation, Normal air movement Heart: S1S2, RRR, no thrills, no rubs, no gallops, no murmurs Abdomen: Normal bowel sounds, Soft, No tenderness, No hepatosplenomegaly, No masses Rectal Exam: not examined Extremities: No clubbing, No cyanosis, No edema, Normal pulses, Other (right ankle swelling) Skin: No rashes, No breakdown, No significant lesion Neuro: Normal speech, Strength at 5/5 X4 ext, Normal tone, Sensation intact, Cranial nerves 3-12 NL, Reflexes 2+ Psych/Mental Status: Mental status NL, Mood NL Vitals Vitals Vital Signs Date Time Temp Pulse Resp B/P (MAP) Pulse Ox O2 Delivery O2 Flow Rate FiO2 02/23/20 06:18 63 131/65 (87) 100 Room Air 02/23/20 05:29 98.3 18 3.0 98.3 Labs Labs Laboratory Tests Test 02/23/20 05:47 02/23/20 06:35 White Blood Count 3.4 x10^3/uL (4.0-11.0) Red Blood Count 4.48 x10^6/uL (3.50-5.40) Hemoglobin 11.8 g/dL (12.0-15.5) Hematocrit 36.6 % (36.0-47.0) Mean Corpuscular Volume 82 fL (79-100) Mean Corpuscular Hemoglobin 26 pg (25-35) Mean Corpuscular Hemoglobin Concent 32 g/dL (31-37) Red Cell Distribution Width 16.1 % (11.5-14.5) Platelet Count 207 x10^3/uL (140-400) Neutrophils (%) (Auto) 44 % (31-73) Lymphocytes (%) (Auto) 41 % (24-48) Monocytes (%) (Auto) 9 % (0-9) Eosinophils (%) (Auto) 5 % (0-3) Basophils (%) (Auto) 1 % (0-3) Neutrophils # (Auto) 1.5 x10^3/uL (1.8-7.7) Lymphocytes # (Auto) 1.4 x10^3/uL (1.0-4.8) Monocytes # (Auto) 0.3 x10^3/uL (0.0-1.1) Eosinophils # (Auto) 0.2 x10^3/uL (0.0-0.7) Basophils # (Auto) 0.0 x10^3/uL (0.0-0.2) Sodium Level 140 mmol/L (136-145) Potassium Level 4.2 mmol/L (3.5-5.1) Chloride Level 102 mmol/L (98-107) Carbon Dioxide Level 32 mmol/L (21-32) Anion Gap 6 (6-14) Blood Urea Nitrogen 6 mg/dL (7-20) Creatinine 0.9 mg/dL (0.6-1.0) Estimated GFR (Cockcroft-Gault) 63.7 BUN/Creatinine Ratio 7 (6-20) Glucose Level 101 mg/dL (70-99) Calcium Level 9.4 mg/dL (8.5-10.1) Magnesium Level 1.7 mg/dL (1.8-2.4) Total Bilirubin 0.5 mg/dL (0.2-1.0) Aspartate Amino Transf (AST/SGOT) 58 U/L (15-37) Alanine Aminotransferase (ALT/SGPT) 46 U/L (14-59) Alkaline Phosphatase 167 U/L (46-116) Creatine Kinase 31 U/L (26-192) Troponin I Quantitative < 0.017 ng/mL (0.000-0.055) CV-Xzd-O-Type Natriuretic Peptide 87 pg/mL (0-124) Total Protein 6.6 g/dL (6.4-8.2) Albumin 3.1 g/dL (3.4-5.0) Albumin/Globulin Ratio 0.9 (1.0-1.7) Bedside Troponin I 0.00 ng/ml (<0.08) Laboratory Tests Test 02/23/20 05:47 02/23/20 06:35 White Blood Count 3.4 x10^3/uL (4.0-11.0) Red Blood Count 4.48 x10^6/uL (3.50-5.40) Hemoglobin 11.8 g/dL (12.0-15.5) Hematocrit 36.6 % (36.0-47.0) Mean Corpuscular Volume 82 fL (79-100) Mean Corpuscular Hemoglobin 26 pg (25-35) Mean Corpuscular Hemoglobin Concent 32 g/dL (31-37) Red Cell Distribution Width 16.1 % (11.5-14.5) Platelet Count 207 x10^3/uL (140-400) Neutrophils (%) (Auto) 44 % (31-73) Lymphocytes (%) (Auto) 41 % (24-48) Monocytes (%) (Auto) 9 % (0-9) Eosinophils (%) (Auto) 5 % (0-3) Basophils (%) (Auto) 1 % (0-3) Neutrophils # (Auto) 1.5 x10^3/uL (1.8-7.7) Lymphocytes # (Auto) 1.4 x10^3/uL (1.0-4.8) Monocytes # (Auto) 0.3 x10^3/uL (0.0-1.1) Eosinophils # (Auto) 0.2 x10^3/uL (0.0-0.7) Basophils # (Auto) 0.0 x10^3/uL (0.0-0.2) Sodium Level 140 mmol/L (136-145) Potassium Level 4.2 mmol/L (3.5-5.1) Chloride Level 102 mmol/L (98-107) Carbon Dioxide Level 32 mmol/L (21-32) Anion Gap 6 (6-14) Blood Urea Nitrogen 6 mg/dL (7-20) Creatinine 0.9 mg/dL (0.6-1.0) Estimated GFR (Cockcroft-Gault) 63.7 BUN/Creatinine Ratio 7 (6-20) Glucose Level 101 mg/dL (70-99) Calcium Level 9.4 mg/dL (8.5-10.1) Magnesium Level 1.7 mg/dL (1.8-2.4) Total Bilirubin 0.5 mg/dL (0.2-1.0) Aspartate Amino Transf (AST/SGOT) 58 U/L (15-37) Alanine Aminotransferase (ALT/SGPT) 46 U/L (14-59) Alkaline Phosphatase 167 U/L (46-116) Creatine Kinase 31 U/L (26-192) Troponin I Quantitative < 0.017 ng/mL (0.000-0.055) HR-Svm-E-Type Natriuretic Peptide 87 pg/mL (0-124) Total Protein 6.6 g/dL (6.4-8.2) Albumin 3.1 g/dL (3.4-5.0) Albumin/Globulin Ratio 0.9 (1.0-1.7) Bedside Troponin I 0.00 ng/ml (<0.08) Images Images CXR: Single supine portable exam of the chest was performed. Heart and mediastinal contours are stable. Mildly prominent interstitial markings throughout both lungs, similar to prior study. No consolidation or pleural effusion. No pneumothorax. Impression: No acute radiographic abnormality. Stable findings compared to 09/12/2019 CT HEAD AND CERVICAL SPINE WO dated 02/23/2020 6:14 AM. Findings head: Ventricles and sulci are within normal limits for age. No midline shift or mass effect. Brain parenchyma is of normal attenuation. No hemorrhage or extra-axial collection. Posterior fossa and brainstem unremarkable. Visualized paranasal sinuses and mastoid air cells are clear. No apparent calvarial abnormality. IMPRESSION HEAD: No evidence of acute intracranial abnormality. Findings cervical spine: Images were acquired from the skull base to T2. There is straightening of the normal cervical lordosis, otherwise sagittal alignment is anatomic. Vertebral body heights are maintained. No prevertebral soft tissue swelling. Posterior elements are intact. No fractures are identified. Mild endplate hypertrophic changes throughout. Mild disc space narrowing C6-C7 and C7-T1. Minimal uncovertebral spurring and facet arthropathy. No apparent focal disc herniation. The bony canal and foramen appear adequate. No significant soft tissue abnormality. Limited images of lung apices are clear. IMPRESSION CERVICAL SPINE: 1. No evidence of fracture or malalignment. 2. Mild multilevel spondylosis. CT LUMBAR SPINE WO CONTRAST dated 02/23/2020 6:42 AM Sagittal alignment is anatomic. Vertebral body heights are maintained. Posterior elements are intact. No evidence of fracture. Mild endplate hypertrophic changes throughout, most severe at L4-L5 and L5-S1. Mild to moderate arthrosis of the lower lumbar apophyseal joints. There is resultant mild central stenosis at L4-L5 and L5-S1 with moderate bilateral foraminal narrowing at L4-L5. Mild bilateral foraminal narrowing at L5-S1. Images of the retroperitoneum show no significant abnormality. Urinary bladder is distended. Uterus is surgically absent. IMPRESSION: 1. No evidence of fracture or malalignment. 2. Moderate lower lumbar spondylosis. 3. Distended urinary bladder. VTE Prophylaxis Ordered VTE Prophylaxis Devices: Yes VTE Pharmacological Prophylaxi: Yes Assessment/Plan Assessment/Plan A/P: Syncope - uncertain etiology, likely medication related. will maintain telemetry. Consult neurology, rule out DVT Elevated d dimer -syncope and loss of consciousness, will obtain right lower extremity ultrasound. Right knee pain - XR stable. Ortho asked to see regarding weight bearing status Right ankle pain - may be sprained, recommend air-cast hard splint 6 weeks. PT to see Migraines - on emgality outpatient injections Morbid Obesity Obesity Hypoventilation Syndrome Dyslipidemia Hypertension Hx of B/L TKA Cutaneous Candidiasis Primary Biliary Cirrhosis - tried ursodiol, stated she broke out in rash FEN - General diet PPX - Lovenox FULL CODE Dispo - observation for syncope Justicifation of Admission Dx: Justifications for Admission: Justification of Admission Dx: Yes CHF: Hemodynamic Instability RUTH PAINTER MD Feb 23, 2020 07:43
[2020-02-23] MEDS ORDERED: ONDANSETRON PF 4 MG/2 ML VIAL. IV PRN (07:45)
[2020-02-23] MEDS ORDERED: MAGNESIUM SULFATE 2GM 50 ML IV ONE (08:00)
--- NOTE | 2020-02-23 08:24 | RAD ---
KNEE RIGHT 3V History: Reason: Pain after fall / Spl. Instructions: / History: Technique: 3 views right knee. Comparison: January 14, 2020 Findings: Right total knee arthroplasty. Postoperative changes to the anterior tibial cortex, similar compared to prior. Unchanged calcifications posterior to the knee, may represent loose bodies. No definite fracture. Normal alignment. Anterior knee soft tissue swelling, decreased compared to prior. Impression: 1. No acute osseous abnormality. 2. Right total knee arthroplasty with calcifications posteriorly, may represent loose bodies, unchanged. Electronically signed by: Andrew Luna DO (02/23/2020 8:20 AM) FERNANDEZ
[2020-02-23] MEDS: ASPIRIN 325 MG TABLET PO SCH (08:57)
[2020-02-23] MEDS: PANTOPRAZOLE 40 MG TABLET.DR. PO SCH (08:57)
[2020-02-23] MEDS: HYDROcodone/APAP 10/325 1 TAB TABLET PO PRN ×2 (08:57→18:03)
[2020-02-23] MEDS: FLUTICASONE 50MCG/NASAL SPRAY 16GM BOTTLE. NS SCH (10:48)
[2020-02-23] MEDS: LEVOTHYROXINE 125 MCG TABLET PO SCH (10:48)
[2020-02-23] MEDS: LOSARTAN POTASSIUM 50 MG TABLET. PO SCH (10:48)
[2020-02-23] MEDS: FLUoxetine HCL 20 MG CAPSULE PO SCH (10:48)
--- NOTE | 2020-02-23 10:50 | PDOC2 ---
CONSULT Date of Consult Date of Consult DATE: 02/23/20 TIME: 10:45 History of Present Illness Reason for Visit: Patient is a 59 year old female well known to me from recent knee surgery, who was in her normal state of health until she was walking to the bathroom this morning and felt lightheaded and had a syncopal event hitting her head. Patient does not exactly remember events around event. Complains moderate occipital nonradiating throbbing headache. Patient denies any recent illnesses. No fever no cough no vomiting no diarrhea no blood in the stool. Patient arrived with c- collar in place. No other injuries. Past Medical History Cardiovascular: HTN, Hyperlipidemia Pulmonary: No pertinent hx CENTRAL NERVOUS SYSTEM: TIA GI: Diverticulosis, Hemorrhoids, Peptic Ulcer disease Heme/Onc: No pertinent hx Hepatobiliary: No pertinent hx Psych: Anxiety Musculoskeletal: Osteoarthritis Rheumatologic: Fibromyalgia Infectious disease: No pertinent hx Endocrine: Hypothyroidism Past Surgical History Past Surgical History: Appendectomy, Cholecystectomy, Total knee replacement, Tonsillectomy, Hysterectomy Family History Family History: Heart Disease, Hypertension Social History ALCOHOL: none Drugs: None Lives: with Family Current Problem List Problem List Problems Medical Problems: (1) Contusion of lower back Status: Acute (2) Head injury Status: Acute (3) Syncope Status: Acute Current Medications Current Medications Current Medications Ondansetron HCl (Zofran) 4 mg PRN Q8HRS PRN IV NAUSEA/VOMITING; Start 02/23/20 at 07:45; Stop 02/24/20 at 07:44 Magnesium Sulfate 50 ml @ 25 mls/hr 1X ONCE IV Last administered on 02/23/20at 08:58; Start 02/23/20 at 08:00; Stop 02/23/20 at 09:59; Status DC Aspirin (Evaristo Aspirin) 325 mg DAILY PO Last administered on 02/23/20at 08:57; Start 02/23/20 at 09:00 Fluticasone Propionate (Flonase) 2 spray DAILY NS ; Start 02/23/20 at 09:00 Levothyroxine Sodium (Synthroid) 125 mcg DAILY06 PO ; Start 02/23/20 at 10:30 Trazodone HCl (Desyrel) 50 mg PRN QHS PRN PO INSOMNIA; Start 02/23/20 at 07:45 Fluoxetine HCl (PROzac) 40 mg DAILY PO ; Start 02/23/20 at 09:00 Losartan Potassium (Cozaar) 100 mg DAILY PO ; Start 02/23/20 at 09:00 Pantoprazole Sodium (Protonix) 40 mg DAILYAC PO Last administered on 02/23/20at 08:57; Start 02/23/20 at 08:00 Acetaminophen/ Hydrocodone Bitart (Lortab 10/325) 1 tab PRN Q6HRS PRN PO PAIN Last administered on 02/23/20at 08:57; Start 02/23/20 at 08:15 Active Scripts Active Nystop (Nystatin) 60 Gm Powder 1 Nina TP BID 30 Days use topically twice a day to affected area Reported Hydrocodone-Apap 10-325 (Hydrocodone Bit/Acetaminophen) 1 Tab Tablet 1 Tab PO PRN Q6HRS PRN Aspirin 325 Mg Tablet 1 Tab PO DAILY LAST DOSE GIVEN: DATE:04/15/17 TIME:9:00 a.m. Omeprazole 20 Mg Capsule. 1 Cap PO DAILY LAST DOSE GIVEN: DATE:04/15/17 TIME:9:00 a.m. Fluticasone Propionate Nasal [place] (Fluticasone Propionate) 16 Gm [place].susp 2 [place] NS DAILY LAST DOSE GIVEN: DATE:04/15/17 TIME:9:00 a.m. Losartan Potassium 100 Mg Tablet 100 Mg PO HS [Xysol] 1 Tab PO HS Trazodone Hcl 50 Mg Tablet 50 Mg PO DAILY PRN Cyclobenzaprine Hcl 10 Mg Tablet 1 Tab PO TID LAST DOSE GIVEN: DATE:04/15/17 TIME:2:00 p.m. Niaspan (Niacin) 500 Mg Tab.er.24h 500 Mg PO HS Fish Oil ([place]-3 Fatty Acids) 500 Mg Capsule. 1,400 Mg PO Fluoxetine Hcl 20 Mg Tablet 40 Mg PO DAILY LAST DOSE GIVEN: DATE:04/15/17 TIME: 9:00 a.m. Levothyroxine Sodium 125 Mcg Tablet 125 Mcg PO DAILY LAST DOSE GIVEN: DATE:04/15/17 TIME:7:30 a.m. Alprazolam 1 Mg Tablet 1 Mg PO DAILY PRN Meds not given this hospital admission. May resume home medications as approved by Physician. Allergies Allergies: Coded Allergies: celecoxib (Verified Allergy, Mild, 01/08/20) GI UPSET STOMACH I S O L A T I O N *CONTACT* (Verified Allergy, Unknown, 01/08/20) ESBL acetaminophen (Verified Adverse Reaction, Severe, HAS FATTY LIVER AND PBC: LIMITED INTAKE PLEASE, 02/23/20) Cannot take d/t Primary Biliary Cirrhosis LORTAB IS HOME MED prochlorperazine (Verified Adverse Reaction, Severe, 01/08/20) SKIN CRAWLING Xhlpwve-Ryp-Vzt Reductase Inhibitor (Verified Adverse Reaction, Intermediate, INCREASED LIVER ENZYMES, 01/08/20) Physical Exam General: Alert, Cooperative Lungs: Normal air movement Heart: Regular rate Abdomen: Soft Extremities: Other (The RIGHT knee shows an intact incision with no drainage. No erythema or evidence of infection. Slight warmth to palpation. Extensor mechanism intact; she is able to flex her knee to 90 degrees without difficulty. No extensor lag. Distal neurovascular exam is unremarkable) Vitals VITALS Vital Signs Date Time Temp Pulse Resp B/P (MAP) Pulse Ox O2 Delivery O2 Flow Rate FiO2 02/23/20 06:18 63 131/65 (87) 100 Room Air 02/23/20 05:29 98.3 18 3.0 98.3 Labs Labs Laboratory Tests Test 02/23/20 05:47 02/23/20 06:35 White Blood Count 3.4 x10^3/uL (4.0-11.0) Red Blood Count 4.48 x10^6/uL (3.50-5.40) Hemoglobin 11.8 g/dL (12.0-15.5) Hematocrit 36.6 % (36.0-47.0) Mean Corpuscular Volume 82 fL (79-100) Mean Corpuscular Hemoglobin 26 pg (25-35) Mean Corpuscular Hemoglobin Concent 32 g/dL (31-37) Red Cell Distribution Width 16.1 % (11.5-14.5) Platelet Count 207 x10^3/uL (140-400) Neutrophils (%) (Auto) 44 % (31-73) Lymphocytes (%) (Auto) 41 % (24-48) Monocytes (%) (Auto) 9 % (0-9) Eosinophils (%) (Auto) 5 % (0-3) Basophils (%) (Auto) 1 % (0-3) Neutrophils # (Auto) 1.5 x10^3/uL (1.8-7.7) Lymphocytes # (Auto) 1.4 x10^3/uL (1.0-4.8) Monocytes # (Auto) 0.3 x10^3/uL (0.0-1.1) Eosinophils # (Auto) 0.2 x10^3/uL (0.0-0.7) Basophils # (Auto) 0.0 x10^3/uL (0.0-0.2) D-Dimer (Kanika) 2.51 ug/mlFEU (0.00-0.50) Sodium Level 140 mmol/L (136-145) Potassium Level 4.2 mmol/L (3.5-5.1) Chloride Level 102 mmol/L (98-107) Carbon Dioxide Level 32 mmol/L (21-32) Anion Gap 6 (6-14) Blood Urea Nitrogen 6 mg/dL (7-20) Creatinine 0.9 mg/dL (0.6-1.0) Estimated GFR (Cockcroft-Gault) 63.7 BUN/Creatinine Ratio 7 (6-20) Glucose Level 101 mg/dL (70-99) Calcium Level 9.4 mg/dL (8.5-10.1) Magnesium Level 1.7 mg/dL (1.8-2.4) Total Bilirubin 0.5 mg/dL (0.2-1.0) Aspartate Amino Transf (AST/SGOT) 58 U/L (15-37) Alanine Aminotransferase (ALT/SGPT) 46 U/L (14-59) Alkaline Phosphatase 167 U/L (46-116) Creatine Kinase 31 U/L (26-192) Troponin I Quantitative < 0.017 ng/mL (0.000-0.055) AU-Den-Y-Type Natriuretic Peptide 87 pg/mL (0-124) Total Protein 6.6 g/dL (6.4-8.2) Albumin 3.1 g/dL (3.4-5.0) Albumin/Globulin Ratio 0.9 (1.0-1.7) Thyroid Stimulating Hormone (TSH) 2.619 uIU/mL (0.358-3.74) Bedside Troponin I 0.00 ng/ml (<0.08) Laboratory Tests Test 02/23/20 05:47 02/23/20 06:35 White Blood Count 3.4 x10^3/uL (4.0-11.0) Red Blood Count 4.48 x10^6/uL (3.50-5.40) Hemoglobin 11.8 g/dL (12.0-15.5) Hematocrit 36.6 % (36.0-47.0) Mean Corpuscular Volume 82 fL (79-100) Mean Corpuscular Hemoglobin 26 pg (25-35) Mean Corpuscular Hemoglobin Concent 32 g/dL (31-37) Red Cell Distribution Width 16.1 % (11.5-14.5) Platelet Count 207 x10^3/uL (140-400) Neutrophils (%) (Auto) 44 % (31-73) Lymphocytes (%) (Auto) 41 % (24-48) Monocytes (%) (Auto) 9 % (0-9) Eosinophils (%) (Auto) 5 % (0-3) Basophils (%) (Auto) 1 % (0-3) Neutrophils # (Auto) 1.5 x10^3/uL (1.8-7.7) Lymphocytes # (Auto) 1.4 x10^3/uL (1.0-4.8) Monocytes # (Auto) 0.3 x10^3/uL (0.0-1.1) Eosinophils # (Auto) 0.2 x10^3/uL (0.0-0.7) Basophils # (Auto) 0.0 x10^3/uL (0.0-0.2) D-Dimer (Kanika) 2.51 ug/mlFEU (0.00-0.50) Sodium Level 140 mmol/L (136-145) Potassium Level 4.2 mmol/L (3.5-5.1) Chloride Level 102 mmol/L (98-107) Carbon Dioxide Level 32 mmol/L (21-32) Anion Gap 6 (6-14) Blood Urea Nitrogen 6 mg/dL (7-20) Creatinine 0.9 mg/dL (0.6-1.0) Estimated GFR (Cockcroft-Gault) 63.7 BUN/Creatinine Ratio 7 (6-20) Glucose Level 101 mg/dL (70-99) Calcium Level 9.4 mg/dL (8.5-10.1) Magnesium Level 1.7 mg/dL (1.8-2.4) Total Bilirubin 0.5 mg/dL (0.2-1.0) Aspartate Amino Transf (AST/SGOT) 58 U/L (15-37) Alanine Aminotransferase (ALT/SGPT) 46 U/L (14-59) Alkaline Phosphatase 167 U/L (46-116) Creatine Kinase 31 U/L (26-192) Troponin I Quantitative < 0.017 ng/mL (0.000-0.055) YR-Nqf-J-Type Natriuretic Peptide 87 pg/mL (0-124) Total Protein 6.6 g/dL (6.4-8.2) Albumin 3.1 g/dL (3.4-5.0) Albumin/Globulin Ratio 0.9 (1.0-1.7) Thyroid Stimulating Hormone (TSH) 2.619 uIU/mL (0.358-3.74) Bedside Troponin I 0.00 ng/ml (<0.08) Images Images Report reviewed, images independently reviewed. Postsurgical changes are noted to the anterior tibia. I do not see any acute issues. [id number] [facility] [place] [address] IMAGING REPORT Signed PATIENT: LULU WEINBERG ACCOUNT: [id number] : 1960 LOCATION: [address] [place] [address] AGE: 59 SEX: F EXAM STATUS: ADM IN ORD. PHYSICIAN: RUTH PAINTER MD REASON: Pain after fall PROCEDURE: KNEE RIGHT 3V KNEE RIGHT 3V History: Reason: Pain after fall / Spl. Instructions: / History: Technique: 3 views right knee. Comparison: January 14, 2020 Findings: Right total knee arthroplasty. Postoperative changes to the anterior tibial cortex, similar compared to prior. Unchanged calcifications posterior to the knee, may represent loose bodies. No definite fracture. Normal alignment. Anterior knee soft tissue swelling, decreased compared to prior. Impression: 1. No acute osseous abnormality. 2. Right total knee arthroplasty with calcifications posteriorly, may represent loose bodies, unchanged. Electronically signed by: Andrew Luna DO (02/23/2020 8:20 AM) [facility] DICTATED and SIGNED BY: ANDREW LUNA DO DATE: 02/23/20819 Assessment/Plan Assessment/Plan Fortunately her syncopal episode did not cause any damage to the total knee replacement nor the recent tendon surgery. Continue weightbearing as tolerated with a walker. ERUM GUTIERREZ MD Feb 23, 2020 10:50
[2020-02-23] MEDS ORDERED: ASPI81TA59 PO (10:56)
[2020-02-23] MEDS: ENOXAPARIN 40 MG/0.4 ML SYRINGE. SQ SCH (20:58)
[2020-02-23] MEDS ORDERED: MORPHINE SULFATE 4 MG/ML VIAL. IV PRN (21:30)
[2020-02-23] MEDS: traZODone 50 MG TABLET. PO PRN (21:55)
[2020-02-23] MEDS: KETOROLAC 30 MG/ML VIAL. IVP PRN (21:55)
[2020-02-24 03:00] VITALS: BP 112/55
[2020-02-24] MEDS: LEVOTHYROXINE 125 MCG TABLET PO SCH (05:57)
[2020-02-24] MEDS: HYDROcodone/APAP 10/325 1 TAB TABLET PO PRN (05:57)
[2020-02-24] MEDS: PANTOPRAZOLE 40 MG TABLET.DR. PO SCH (05:57)
[2020-02-24 06:06] LABS: CALCIUM 9.6 mg/dL (8.5-10.1); CREATININE 0.9 mg/dL (0.6-1.0); GFR 63.7; MAGNESIUM 2.2 mg/dL (1.8-2.4); POTASSIUM 4.2 mmol/L (3.5-5.1)
[2020-02-24 07:00] VITALS: BP 177/93
[2020-02-24] MEDS ORDERED: HYDROcodone/APAP 5/325MG 1 TAB TABLET PO ONE (07:45)
[2020-02-24] MEDS: FLUoxetine HCL 20 MG CAPSULE PO SCH (08:04)
[2020-02-24] MEDS: LOSARTAN POTASSIUM 50 MG TABLET. PO SCH (08:05)
[2020-02-24] MEDS: ASPIRIN 325 MG TABLET PO SCH (08:05)
[2020-02-24] MEDS: ENOXAPARIN 40 MG/0.4 ML SYRINGE. SQ SCH ×2 (08:06→21:11)
[2020-02-24] MEDS: FLUTICASONE 50MCG/NASAL SPRAY 16GM BOTTLE. NS SCH (08:06)
--- NOTE | 2020-02-24 10:33 | PDOC2 ---
CONSULT Date of Consult Date of Consult DATE: 02/24/20 TIME: 10:33 Reason for Consult Reason for Consult: syncope Identification/Chief Complaint Chief Complaint syncope History of Present Illness Reason for Visit: This patient is 58-year-old woman with past medical history of multiple medical problems history of hypertension hyperlipidemia migraine T IA anxiety depression and fibromyalgia hypothyroidism who presented to emergency room with the syncopal episode with lightheadedness, patient did not have any episode of jerking in her extremities does not have any postictal confusion. Patient had a CT scan done brain Did not show any evidence of acute intracranial etiology no evidence of acute hemorrhage or mass changes noted for chronic small vessel ischemic disease. CT cervical spine did not show any acute fracture changes noted for spondylosis. Past Medical History Cardiovascular: HTN, Hyperlipidemia Pulmonary: No pertinent hx CENTRAL NERVOUS SYSTEM: TIA GI: Diverticulosis, Hemorrhoids, Peptic Ulcer disease Heme/Onc: No pertinent hx Hepatobiliary: No pertinent hx Psych: Anxiety Musculoskeletal: Osteoarthritis Rheumatologic: Fibromyalgia Infectious disease: No pertinent hx Endocrine: Hypothyroidism Past Surgical History Past Surgical History: Appendectomy, Cholecystectomy, Total knee replacement, Tonsillectomy, Hysterectomy Family History Family History: Heart Disease, Hypertension Social History No ALCOHOL: none Drugs: None Lives: with Family Current Problem List Problem List Problems Medical Problems: (1) Contusion of lower back Status: Acute (2) Head injury Status: Acute (3) Syncope Status: Acute Current Medications Current Medications Current Medications Ondansetron HCl (Zofran) 4 mg PRN Q8HRS PRN IV NAUSEA/VOMITING; Start 02/23/20 at 07:45; Stop 02/24/20 at 07:44; Status DC Magnesium Sulfate 50 ml @ 25 mls/hr 1X ONCE IV Last administered on 02/23/20at 08:58; Start 02/23/20 at 08:00; Stop 02/23/20 at 09:59; Status DC Aspirin (Evaristo Aspirin) 325 mg DAILY PO Last administered on 02/24/20at 08:05; Start 02/23/20 at 09:00 Fluticasone Propionate (Flonase) 2 spray DAILY NS Last administered on 02/24/20at 08:06; Start 02/23/20 at 09:00 Levothyroxine Sodium (Synthroid) 125 mcg DAILY06 PO Last administered on 02/24/20at 05:57; Start 02/23/20 at 10:30 Trazodone HCl (Desyrel) 50 mg PRN QHS PRN PO INSOMNIA Last administered on 02/23/20 21:55; Start 02/23/20 at 07:45 Fluoxetine HCl (PROzac) 40 mg DAILY PO Last administered on 02/24/20at 08:04; Start 02/23/20 at 09:00 Losartan Potassium (Cozaar) 100 mg DAILY PO Last administered on 02/24/20at 08:05; Start 02/23/20 at 09:00 Pantoprazole Sodium (Protonix) 40 mg DAILYAC PO Last administered on 02/24/20 05:57; Start 02/23/20 at 08:00 Acetaminophen/ Hydrocodone Bitart (Lortab 10/325) 1 tab PRN Q6HRS PRN PO PAIN Last administered on 02/24/20at 05:57; Start 02/23/20 at 08:15; Stop 02/24/20 at 07:42; Status DC Enoxaparin Sodium (Lovenox 40mg Syringe) 40 mg Q12HR SQ Last administered on 02/24/20at 08:06; Start 02/23/20 at 21:00 Ketorolac Tromethamine (Toradol 30mg Vial) 30 mg PRN Q6HRS PRN IVP PAIN Last administered on 02/23/20at 21:55; Start 02/23/20 at 21:30 Morphine Sulfate (Morphine Sulfate) 4 mg PRN Q4HRS PRN IV PAIN; Start 02/23/20 at 21:30 Acetaminophen/ Hydrocodone Bitart (Lortab 5/325) 1 tab 1X ONCE PO Last a dministered on 02/24/20at 08:05; Start 02/24/20 at 07:45; Stop 02/24/20 at 07:46; Status DC Acetaminophen/ Hydrocodone Bitart (Lortab 7.5/325) 2 tab PRN Q6HRS PRN PO MODERATE TO SEVERE PAIN; Start 02/24/20 at 07:45 Active Scripts Active Nystop (Nystatin) 60 Gm Powder 1 Nina TP BID 30 Days use topically twice a day to affected area Reported Children's Aspirin (Aspirin) 81 Mg Tab.chew 1 Tab PO DAILY 30 Days Hydrocodone-Apap 10-325 (Hydrocodone Bit/Acetaminophen) 1 Tab Tablet 1 Tab PO PRN Q6HRS PRN Omeprazole 20 Mg Capsule.dr 1 Cap PO DAILY LAST DOSE GIVEN: DATE:04/15/17 TIME:9:00 a.m. Fluticasone Propionate Nasal [place] (Fluticasone Propionate) 16 Gm [place].susp 2 [place] NS DAILY LAST DOSE GIVEN: DATE:04/15/17 TIME:9:00 a.m. Losartan Potassium 100 Mg Tablet 100 Mg PO HS [Xysol] 1 Tab PO HS Trazodone Hcl 50 Mg Tablet 50 Mg PO DAILY PRN Cyclobenzaprine Hcl 10 Mg Tablet 1 Tab PO TID LAST DOSE GIVEN: DATE:04/15/17 TIME:2:00 p.m. Niaspan (Niacin) 500 Mg Tab.er.24h 500 Mg PO HS Fish Oil ([place]-3 Fatty Acids) 500 Mg Capsule. 1,400 Mg PO Fluoxetine Hcl 20 Mg Tablet 40 Mg PO DAILY LAST DOSE GIVEN: DATE:04/15/17 TIME: 9:00 a.m. Levothyroxine Sodium 125 Mcg Tablet 125 Mcg PO DAILY LAST DOSE GIVEN: DATE:04/15/17 TIME:7:30 a.m. Alprazolam 1 Mg Tablet 1 Mg PO DAILY PRN Meds not given this hospital admission. May resume home medications as approved by Physician. Allergies Allergies: Coded Allergies: celecoxib (Verified Allergy, Mild, 01/08/20) GI UPSET STOMACH I S O L A T I O N *CONTACT* (Verified Allergy, Unknown, 01/08/20) ESBL acetaminophen (Verified Adverse Reaction, Severe, HAS FATTY LIVER AND PBC: LIMITED INTAKE PLEASE, 02/23/20) Cannot take d/t Primary Biliary Cirrhosis LORTAB IS HOME MED prochlorperazine (Verified Adverse Reaction, Severe, 01/08/20) SKIN CRAWLING Wpkylmv-Mvi-Liu Reductase Inhibitor (Verified Adverse Reaction, Intermediate, INCREASED LIVER ENZYMES, 01/08/20) ROS Review of System neg except as in hpi Physical Exam Physical Exam General no acute distress. HEENT: Normocephalic and atraumatic. NECK: Supple without bruit Respiratory: Clear to auscultation bilaterally Heart: Regular rate and rhythm, S1S2 normal NEUROLOGIC: Mental status Alert oriented. Cranial nerve equally reactive pupils, and intact extraocular movements. No facial asymmetry. Palate elevates and tongue protrudes in midline. Reflexes are 1-2 with flexor plantar responses. Coordination no dysmetria Strength able to move all exts equally. Sensory exam is intact for light touch and pinprick. Gait in bed. Vitals VITALS Vital Signs Date Time Temp Pulse Resp B/P (MAP) Pulse Ox O2 Delivery O2 Flow Rate FiO2 02/24/20 09:46 Room Air 02/24/20 08:05 76 177/93 02/24/20 07:00 98.1 20 92 98.1 Labs Labs Laboratory Tests Test 02/23/20 05:47 02/23/20 06:35 02/23/20 10:55 02/23/20 13:10 White Blood Count 3.4 x10^3/uL (4.0-11.0) Red Blood Count 4.48 x10^6/uL (3.50-5.40) Hemoglobin 11.8 g/dL (12.0-15.5) Hematocrit 36.6 % (36.0-47.0) Mean Corpuscular Volume 82 fL (79-100) Mean Corpuscular Hemoglobin 26 pg (25-35) Mean Corpuscular Hemoglobin Concent 32 g/dL (31-37) Red Cell Distribution Width 16.1 % (11.5-14.5) Platelet Count 207 x10^3/uL (140-400) Neutrophils (%) (Auto) 44 % (31-73) Lymphocytes (%) (Auto) 41 % (24-48) Monocytes (%) (Auto) 9 % (0-9) Eosinophils (%) (Auto) 5 % (0-3) Basophils (%) (Auto) 1 % (0-3) Neutrophils # (Auto) 1.5 x10^3/uL (1.8-7.7) Lymphocytes # (Auto) 1.4 x10^3/uL (1.0-4.8) Monocytes # (Auto) 0.3 x10^3/uL (0.0-1.1) Eosinophils # (Auto) 0.2 x10^3/uL (0.0-0.7) Basophils # (Auto) 0.0 x10^3/uL (0.0-0.2) D-Dimer (Kanika) 2.51 ug/mlFEU (0.00-0.50) Sodium Level 140 mmol/L (136-145) Potassium Level 4.2 mmol/L (3.5-5.1) Chloride Level 102 mmol/L (98-107) Carbon Dioxide Level 32 mmol/L (21-32) Anion Gap 6 (6-14) Blood Urea Nitrogen 6 mg/dL (7-20) Creatinine 0.9 mg/dL (0.6-1.0) Estimated GFR (Cockcroft-Gault) 63.7 BUN/Creatinine Ratio 7 (6-20) Glucose Level 101 mg/dL (70-99) Calcium Level 9.4 mg/dL (8.5-10.1) Magnesium Level 1.7 mg/dL (1.8-2.4) Total Bilirubin 0.5 mg/dL (0.2-1.0) Aspartate Amino Transf (AST/SGOT) 58 U/L (15-37) Alanine Aminotransferase (ALT/SGPT) 46 U/L (14-59) Alkaline Phosphatase 167 U/L (46-116) Creatine Kinase 31 U/L (26-192) Troponin I Quantitative < 0.017 ng/mL (0.000-0.055) < 0.017 ng/mL (0.000-0.055) < 0.017 ng/mL (0.000-0.055) CG-Bjf-F-Type Natriuretic Peptide 87 pg/mL (0-124) Total Protein 6.6 g/dL (6.4-8.2) Albumin 3.1 g/dL (3.4-5.0) Albumin/Globulin Ratio 0.9 (1.0-1.7) Thyroid Stimulating Hormone (TSH) 2.619 uIU/mL (0.358-3.74) Bedside Troponin I 0.00 ng/ml (<0.08) Test 02/24/20 05:05 Sodium Level 141 mmol/L (136-145) Potassium Level 4.2 mmol/L (3.5-5.1) Chloride Level 103 mmol/L (98-107) Carbon Dioxide Level 28 mmol/L (21-32) Anion Gap 10 (6-14) Blood Urea Nitrogen 8 mg/dL (7-20) Creatinine 0.9 mg/dL (0.6-1.0) Estimated GFR (Cockcroft-Gault) 63.7 Glucose Level 85 mg/dL (70-99) Calcium Level 9.6 mg/dL (8.5-10.1) Magnesium Level 2.2 mg/dL (1.8-2.4) Laboratory Tests Test 02/23/20 10:55 02/23/20 13:10 02/24/20 05:05 Troponin I Quantitative < 0.017 ng/mL (0.000-0.055) < 0.017 ng/mL (0.000-0.055) Sodium Level 141 mmol/L (136-145) Potassium Level 4.2 mmol/L (3.5-5.1) Chloride Level 103 mmol/L (98-107) Carbon Dioxide Level 28 mmol/L (21-32) Anion Gap 10 (6-14) Blood Urea Nitrogen 8 mg/dL (7-20) Creatinine 0.9 mg/dL (0.6-1.0) Estimated GFR (Cockcroft-Gault) 63.7 Glucose Level 85 mg/dL (70-99) Calcium Level 9.6 mg/dL (8.5-10.1) Magnesium Level 2.2 mg/dL (1.8-2.4) Assessment/Plan Assessment/Plan This patient is 58-year-old woman with past medical history of multiple medical problems history of hypertension hyperlipidemia migraine T IA anxiety depression and fibromyalgia hypothyroidism who presented to emergency room with the syncopal episode with lightheadedness, patient did not have any episode of jerking in her extremities does not have any postictal confusion. Patient had a CT scan done brain Did not show any evidence of acute intracranial etiology no evidence of acute hemorrhage or mass changes noted for chronic small vessel ischemic disease. CT cervical spine did not show any acute fracture changes noted for spondylosis. Will get MRI of brain to evaluate for any acute intracranial etiology, check carotid Doppler. Check orthostatic hypotension. PT OT. Continue medical management. Further workup depending on initial test results LUPILLO ROSARIO MD Feb 24, 2020 10:33
--- NOTE | 2020-02-24 10:52 | PDOC ---
PROGRESS NOTES Date of Service: DATE: 02/24/20 TIME: 10:52 Chief Complaint Chief Complaint VTE Prophylaxis Ordered VTE Prophylaxis Devices: Yes VTE Pharmacological Prophylaxi: Yes impression Assessment/Plan A/P: Syncope - uncertain etiology, likely medication related. will maintain telemetry. Consult neurology, rule out DVT Elevated d dimer -syncope and loss of consciousness, will obtain right lower extremity ultrasound. Right knee pain - XR stable. Ortho asked to see regarding weight bearing status Right ankle pain - may be sprained, recommend air-cast hard splint 6 weeks. PT to see Migraines - on emgality outpatient injections Morbid Obesity Obesity Hypoventilation Syndrome Dyslipidemia Hypertension Hx of B/L TKA Cutaneous Candidiasis Primary Biliary Cirrhosis - tried ursodiol, stated she broke out in rash FEN - General diet PPX - Lovenox FULL CODE Dispo - observation for syncope syncopal episode did not cause any damage to the total knee replacement nor the recent tendon surgery. Continue weight bearing as tolerated with a walker. consult cardiology 38 min pt exam, chart review, > 50% of time spent with exam, chart review, pt care coordination Justicifation of Admission Dx: Justicifation of Admission Dx: Justifications for Admission: Justification of Admission Dx: Yes CHF: Hemodynamic Instability History of Present Illness History of Present Illness History of Present Illness History of Present Illness Ms Ng is a 58 yo F w/ PMHx hypertension, hyperlipidemia with a TIA, migraines, Primary biliary cirrhosis, anxiety, depression, osteoarthritis, fibromyalgia, hypothyroidism, GERD, diverticulosis, hemorrhoids, fatty liver who presented to the ER on 02/23/2020 with complaints of syncope and a head injury in her kitchen. Her heard her fall. She notes 1 minutes LOC. Imaging is negative. Head CT was done due to a syncopal event and the head trauma and the patient over 58. Patient resting comfortably on reassessment. EKG normal sinus rhythm with a rate of 71 normal axis normal intervals normal ST segments. Labs with WBC 3.4, Hb 11.8, platelets 207, magnesium 1.7, alkaline phosphatase 167, AST 58 d-dimer 2.51 Does complain of a little bit of right knee pain and some significant right ankle pain and swelling. She notes she was just taken out of her right knee immobilizer recently by orthopedic surgery and did not know if she supposed to continue using her walker or not and she has not been using her walker at home. Admitted for observation. Past Medical History Cardiovascular: HTN, Hyperlipidemia Pulmonary: No pertinent hx CENTRAL NERVOUS SYSTEM: TIA GI: Diverticulosis, Hemorrhoids, Peptic Ulcer disease Heme/Onc: No pertinent hx Hepatobiliary: No pertinent hx Psych: Anxiety Musculoskeletal: Osteoarthritis Rheumatologic: Fibromyalgia Infectious disease: No pertinent hx Endocrine: Hypothyroidism Past Surgical History Past Surgical History: Appendectomy, Cholecystectomy, Total knee replacement, Tonsillectomy, Hysterectomy Family History Family History: Heart Disease, Hypertension Social History Smoke: No ALCOHOL: none Drugs: None Vitals Vitals Vital Signs Date Time Temp Pulse Resp B/P (MAP) Pulse Ox O2 Delivery O2 Flow Rate FiO2 02/24/20 09:46 Room Air 02/24/20 08:05 76 177/93 02/24/20 07:00 98.1 20 92 98.1 Physical Exam General: Alert, Oriented X3, Cooperative, No acute distress Heart: Regular rate Lungs: Clear Abdomen: Normal bowel sounds, Soft, No tenderness, No hepatosplenomegaly, No masses Extremities: No clubbing, No cyanosis, No edema, Normal pulses, Other (right ankle swelling) Skin: No rashes, No breakdown, No significant lesion Labs LABS CT HEAD AND CERVICAL SPINE WO dated 02/23/2020 6:14 AM. Comparison: 05/21/2019 Clinical Indication: Reason: fall / Spl. Instructions: / History: , HEAD AND NECK PAIN Technical factors: Contiguous 5 mm axial images of the head were obtained from the skullbase to the vertex. No contrast was administered. In addition, 3 mm axial images of the cervical spine were acquired with thin cut coronal and sagittal reconstructions. One or more of the following individualized dose reduction techniques were utilized for this examination: 1. Automated exposure control 2. Adjustment of the mA and/or kV according to patient size 3. Use of iterative reconstruction technique Findings head: Ventricles and sulci are within normal limits for age. No midline shift or mass effect. Brain parenchyma is of normal attenuation. No hemorrhage or extra-axial collection. Posterior fossa and brainstem unremarkable. Visualized paranasal sinuses and mastoid air cells are clear. No apparent calvarial abnormality. IMPRESSION HEAD: No evidence of acute intracranial abnormality. Findings cervical spine: Images were acquired from the skull base to T2. There is straightening of the normal cervical lordosis, otherwise sagittal alignment is anatomic. Vertebral body heights are maintained. No prevertebral soft tissue swelling. Posterior elements are intact. No fractures are identified. Mild endplate hypertrophic changes throughout. Mild disc space narrowing C6-C7 and C7-T1. Minimal uncovertebral spurring and facet arthropathy. No apparent focal disc herniation. The bony canal and foramen appear adequate. No significant soft tissue abnormality. Limited images of lung apices are clear. IMPRESSION CERVICAL SPINE: 1. No evidence of fracture or malalignment. 2. Mild multilevel spondylosis. Electronically signed by: Geoffrey Aburto MD (02/23/2020 7:09 AM) [id number] Laboratory Tests Test 02/23/20 10:55 02/23/20 13:10 02/24/20 05:05 Troponin I Quantitative < 0.017 ng/mL (0.000-0.055) < 0.017 ng/mL (0.000-0.055) Sodium Level 141 mmol/L (136-145) Potassium Level 4.2 mmol/L (3.5-5.1) Chloride Level 103 mmol/L (98-107) Carbon Dioxide Level 28 mmol/L (21-32) Anion Gap 10 (6-14) Blood Urea Nitrogen 8 mg/dL (7-20) Creatinine 0.9 mg/dL (0.6-1.0) Estimated GFR (Cockcroft-Gault) 63.7 Glucose Level 85 mg/dL (70-99) Calcium Level 9.6 mg/dL (8.5-10.1) Magnesium Level 2.2 mg/dL (1.8-2.4) Assessment and Plan Assessmemt and Plan Problems Medical Problems: (1) Contusion of lower back Status: Acute (2) Head injury Status: Acute (3) Syncope Status: Acute Comment Review of Relevant I have reviewed the following items radha (where applicable) has been applied. Labs Laboratory Tests Test 02/23/20 05:47 02/23/20 06:35 02/23/20 10:55 02/23/20 13:10 White Blood Count 3.4 x10^3/uL (4.0-11.0) Red Blood Count 4.48 x10^6/uL (3.50-5.40) Hemoglobin 11.8 g/dL (12.0-15.5) Hematocrit 36.6 % (36.0-47.0) Mean Corpuscular Volume 82 fL (79-100) Mean Corpuscular Hemoglobin 26 pg (25-35) Mean Corpuscular Hemoglobin Concent 32 g/dL (31-37) Red Cell Distribution Width 16.1 % (11.5-14.5) Platelet Count 207 x10^3/uL (140-400) Neutrophils (%) (Auto) 44 % (31-73) Lymphocytes (%) (Auto) 41 % (24-48) Monocytes (%) (Auto) 9 % (0-9) Eosinophils (%) (Auto) 5 % (0-3) Basophils (%) (Auto) 1 % (0-3) Neutrophils # (Auto) 1.5 x10^3/uL (1.8-7.7) Lymphocytes # (Auto) 1.4 x10^3/uL (1.0-4.8) Monocytes # (Auto) 0.3 x10^3/uL (0.0-1.1) Eosinophils # (Auto) 0.2 x10^3/uL (0.0-0.7) Basophils # (Auto) 0.0 x10^3/uL (0.0-0.2) D-Dimer (Kanika) 2.51 ug/mlFEU (0.00-0.50) Sodium Level 140 mmol/L (136-145) Potassium Level 4.2 mmol/L (3.5-5.1) Chloride Level 102 mmol/L (98-107) Carbon Dioxide Level 32 mmol/L (21-32) Anion Gap 6 (6-14) Blood Urea Nitrogen 6 mg/dL (7-20) Creatinine 0.9 mg/dL (0.6-1.0) Estimated GFR (Cockcroft-Gault) 63.7 BUN/Creatinine Ratio 7 (6-20) Glucose Level 101 mg/dL (70-99) Calcium Level 9.4 mg/dL (8.5-10.1) Magnesium Level 1.7 mg/dL (1.8-2.4) Total Bilirubin 0.5 mg/dL (0.2-1.0) Aspartate Amino Transf (AST/SGOT) 58 U/L (15-37) Alanine Aminotransferase (ALT/SGPT) 46 U/L (14-59) Alkaline Phosphatase 167 U/L (46-116) Creatine Kinase 31 U/L (26-192) Troponin I Quantitative < 0.017 ng/mL (0.000-0.055) < 0.017 ng/mL (0.000-0.055) < 0.017 ng/mL (0.000-0.055) MM-Wbq-C-Type Natriuretic Peptide 87 pg/mL (0-124) Total Protein 6.6 g/dL (6.4-8.2) Albumin 3.1 g/dL (3.4-5.0) Albumin/Globulin Ratio 0.9 (1.0-1.7) Thyroid Stimulating Hormone (TSH) 2.619 uIU/mL (0.358-3.74) Bedside Troponin I 0.00 ng/ml (<0.08) Test 02/24/20 05:05 Sodium Level 141 mmol/L (136-145) Potassium Level 4.2 mmol/L (3.5-5.1) Chloride Level 103 mmol/L (98-107) Carbon Dioxide Level 28 mmol/L (21-32) Anion Gap 10 (6-14) Blood Urea Nitrogen 8 mg/dL (7-20) Creatinine 0.9 mg/dL (0.6-1.0) Estimated GFR (Cockcroft-Gault) 63.7 Glucose Level 85 mg/dL (70-99) Calcium Level 9.6 mg/dL (8.5-10.1) Magnesium Level 2.2 mg/dL (1.8-2.4) Laboratory Tests Test 02/23/20 10:55 02/23/20 13:10 02/24/20 05:05 Troponin I Quantitative < 0.017 ng/mL (0.000-0.055) < 0.017 ng/mL (0.000-0.055) Sodium Level 141 mmol/L (136-145) Potassium Level 4.2 mmol/L (3.5-5.1) Chloride Level 103 mmol/L (98-107) Carbon Dioxide Level 28 mmol/L (21-32) Anion Gap 10 (6-14) Blood Urea Nitrogen 8 mg/dL (7-20) Creatinine 0.9 mg/dL (0.6-1.0) Estimated GFR (Cockcroft-Gault) 63.7 Glucose Level 85 mg/dL (70-99) Calcium Level 9.6 mg/dL (8.5-10.1) Magnesium Level 2.2 mg/dL (1.8-2.4) Medications Current Medications Ondansetron HCl (Zofran) 4 mg PRN Q8HRS PRN IV NAUSEA/VOMITING; Start 02/23/20 at 07:45; Stop 02/24/20 at 07:44; Status DC Magnesium Sulfate 50 ml @ 25 mls/hr 1X ONCE IV Last administered on 02/23/20 08:58; Start 02/23/20 at 08:00; Stop 02/23/20 at 09:59; Status DC Aspirin (Evaristo Aspirin) 325 mg DAILY PO Last administered on 02/24/20 08:05; Start 02/23/20 at 09:00 Fluticasone Propionate (Flonase) 2 spray DAILY NS Last administered on 02/24/20 08:06; Start 02/23/20 at 09:00 Levothyroxine Sodium (Synthroid) 125 mcg DAILY06 PO Last administered on 02/24/20 05:57; Start 02/23/20 at 10:30 Trazodone HCl (Desyrel) 50 mg PRN QHS PRN PO INSOMNIA Last administered on 02/23/20 21:55; Start 02/23/20 at 07:45 Fluoxetine HCl (PROzac) 40 mg DAILY PO Last administered on 02/24/20at 08:04; Start 02/23/20 at 09:00 Losartan Potassium (Cozaar) 100 mg DAILY PO Last administered on 02/24/20at 08:05; Start 02/23/20 at 09:00 Pantoprazole Sodium (Protonix) 40 mg DAILYAC PO Last administered on 02/24/20 05:57; Start 02/23/20 at 08:00 Acetaminophen/ Hydrocodone Bitart (Lortab 10/325) 1 tab PRN Q6HRS PRN PO PAIN Last administered on 02/24/20 05:57; Start 02/23/20 at 08:15; Stop 02/24/20 at 0 7:42; Status DC Enoxaparin Sodium (Lovenox 40mg Syringe) 40 mg Q12HR SQ Last administered on 02/24/20at 08:06; Start 02/23/20 at 21:00 Ketorolac Tromethamine (Toradol 30mg Vial) 30 mg PRN Q6HRS PRN IVP PAIN Last administered on 02/23/20at 21:55; Start 02/23/20 at 21:30 Morphine Sulfate (Morphine Sulfate) 4 mg PRN Q4HRS PRN IV PAIN; Start 02/23/20 at 21:30 Acetaminophen/ Hydrocodone Bitart (Lortab 5/325) 1 tab 1X ONCE PO Last administered on 02/24/20at 08:05; Start 02/24/20 at 07:45; Stop 02/24/20 at 07:46; Status DC Acetaminophen/ Hydrocodone Bitart (Lortab 7.5/325) 2 tab PRN Q6HRS PRN PO MODERATE TO SEVERE PAIN; Start 02/24/20 at 07:45 Active Scripts Active Nystop (Nystatin) 60 Gm Powder 1 Nina TP BID 30 Days use topically twice a day to affected area Reported Children's Aspirin (Aspirin) 81 Mg Tab.chew 1 Tab PO DAILY 30 Days Hydrocodone-Apap 10-325 (Hydrocodone Bit/Acetaminophen) 1 Tab Tablet 1 Tab PO PRN Q6HRS PRN Omeprazole 20 Mg Capsule. 1 Cap PO DAILY LAST DOSE GIVEN: DATE:04/15/17 TIME:9:00 a.m. Fluticasone Propionate Nasal [place] (Fluticasone Propionate) 16 Gm [place].susp 2 [place] NS DAILY LAST DOSE GIVEN: DATE:04/15/17 TIME:9:00 a.m. Losartan Potassium 100 Mg Tablet 100 Mg PO HS [Xysol] 1 Tab PO HS Trazodone Hcl 50 Mg Tablet 50 Mg PO DAILY PRN Cyclobenzaprine Hcl 10 Mg Tablet 1 Tab PO TID LAST DOSE GIVEN: DATE:04/15/17 TIME:2:00 p.m. Niaspan (Niacin) 500 Mg Tab.er.24h 500 Mg PO HS Fish Oil ([place]-3 Fatty Acids) 500 Mg Capsule.dr Dawson,400 Mg PO Fluoxetine Hcl 20 Mg Tablet 40 Mg PO DAILY LAST DOSE GIVEN: DATE:04/15/17 TIME: 9:00 a.m. Levothyroxine Sodium 125 Mcg Tablet 125 Mcg PO DAILY LAST DOSE GIVEN: DATE:04/15/17 TIME:7:30 a.m. Alprazolam 1 Mg Tablet 1 Mg PO DAILY PRN Meds not given this hospital admission. May resume home medications as approved by Physician. Vitals/I & O Vital Sign - Last 24 Hours 02/23/20 02/23/20 02/23/20 02/23/20 11:00 11:44 11:45 11:45 Temp 98.0 98.0 Pulse 66 69 64 Resp 18 B/P (MAP) 140/77 (98) 115/62 (79) 121/64 (83) 126/73 (90) Pulse Ox 99 O2 Delivery Room Air 02/23/20 02/23/20 02/23/20 02/23/20 12:00 15:00 18:03 19:00 Temp 98.0 98.6 98.0 98.6 Pulse 69 73 Resp 18 16 B/P (MAP) 139/74 (95) 113/52 (72) Pulse Ox 91 95 O2 Delivery Room Air Room Air Room Air 02/23/20 02/23/20 02/23/20 02/24/20 19:16 20:00 23:00 03:00 Temp 98.6 97.7 98.6 97.7 Pulse 73 67 Resp 16 18 B/P (MAP) 130/62 (84) 112/55 (74) Pulse Ox 90 94 O2 Delivery Room Air Room Air 02/24/20 02/24/20 02/24/20 02/24/20 05:57 07:00 08:00 08:05 Temp 98.1 98.1 Pulse 76 76 Resp 18 20 B/P (MAP) 177/93 (121) 177/93 Pulse Ox 94 92 O2 Delivery Room Air Room Air 02/24/20 02/24/20 02/24/20 08:05 08:07 09:46 O2 Delivery Room Air Room Air Room Air Intake and Output 02/23/20 02/23/20 02/24/20 15:00 23:00 07:00 Intake Total 50 ml 300 ml Balance 50 ml 300 ml Justicifation of Admission Dx: Justifications for Admission: Justification of Admission Dx: Yes CHF: Hemodynamic Instability ALEXYS ALICEA MD Feb 24, 2020 10:52
[2020-02-24 11:00] VITALS: BP 142/82
--- NOTE | 2020-02-24 11:21 | RAD ---
VENOUS LOWER EXTREMITY RIGHT 02/24/2020 8:00 AM Clinical Information: Positive d-dimer with recent knee surgery. Swelling. Comparison: None. Technique: Multiple grayscale, color Doppler, and spectral Doppler sonographic images of the lower extremity venous structures were obtained. Findings: The right common femoral, femoral, and popliteal veins exhibit normal compression, respiratory phasicity, and augmentation. No intraluminal thrombi are identified. Color Doppler flow is demonstrated in the right posterior tibial veins. Contralateral common femoral vein is patent. Greater saphenous veins are patent at the saphenofemoral junction. Impression: 1. No evidence of deep venous thrombosis. Electronically signed by: Delia Arellano MD (02/24/2020 11:18 AM) EUGENE
[2020-02-24] MEDS: HYDROcodone/APAP 7.5/325MG 1 TAB TABLET PO PRN ×2 (12:02→18:15)
[2020-02-24 15:00] VITALS: BP 123/69
[2020-02-24] MEDS: PSYLLIUM HUSK (SUGAR FREE) 1 PKT PACKET PO SCH (16:53)
[2020-02-24 19:00] VITALS: BP 136/85
--- NOTE | 2020-02-24 20:43 | RAD ---
Exam: Ultrasound bilateral carotid duplex Indication: Syncope Technique: Real-time grayscale and color Doppler images of the bilateral carotid were obtained by the department tax analyst. Comparisons: None FINDINGS: Peak systolic velocity as follows: Right: Common carotid artery: 84 cm/s Internal carotid artery: 54 cm/s External carotid artery: 64 cm/s Left: Common carotid artery: 66 cm/s Internal carotid artery: 79 cm/s External carotid artery: 97 cm/s IMPRESSION: Patent carotid arterial vasculature bilaterally. Electronically signed by: Murali Padgett MD (02/24/2020 8:40 PM) [id number]
[2020-02-24] MEDS: KETOROLAC 30 MG/ML VIAL. IVP PRN (21:24)
[2020-02-24] MEDS: traZODone 50 MG TABLET. PO PRN (22:22)
[2020-02-24 23:00] VITALS: BP 131/78
[2020-02-25] MEDS: HYDROcodone/APAP 7.5/325MG 1 TAB TABLET PO PRN ×4 (00:32→20:57)
[2020-02-25 03:00] VITALS: BP 131/78
[2020-02-25] MEDS: LEVOTHYROXINE 125 MCG TABLET PO SCH (06:19)
[2020-02-25 07:00] VITALS: BP 111/62
[2020-02-25] MEDS: PSYLLIUM HUSK (SUGAR FREE) 1 PKT PACKET PO SCH (09:00)
[2020-02-25] MEDS: ASPIRIN 325 MG TABLET PO SCH (09:38)
[2020-02-25] MEDS: FLUoxetine HCL 20 MG CAPSULE PO SCH (09:39)
[2020-02-25] MEDS: LOSARTAN POTASSIUM 50 MG TABLET. PO SCH (09:39)
[2020-02-25] MEDS: PANTOPRAZOLE 40 MG TABLET.DR. PO SCH (09:39)
[2020-02-25] MEDS: ENOXAPARIN 40 MG/0.4 ML SYRINGE. SQ SCH ×2 (09:40→20:57)
--- NOTE | 2020-02-25 10:06 | PDOC ---
PROGRESS NOTES Date of Service: DATE: 02/25/20 TIME: 10:05 Chief Complaint Chief Complaint VTE Prophylaxis Ordered VTE Prophylaxis Devices: Yes VTE Pharmacological Prophylaxi: Yes impression Assessment/Plan A/P: Syncope - uncertain etiology, likely medication related. will maintain telemetry. Consult neurology, rule out DVT Elevated d dimer -syncope and loss of consciousness, will obtain right lower extremity ultrasound. Right knee pain - XR stable. Ortho asked to see regarding weight bearing status Right ankle pain - may be sprained, recommend air-cast hard splint 6 weeks. PT to see Migraines - on emgality outpatient injections Morbid Obesity, severe Obesity Hypoventilation Syndrome Dyslipidemia Hypertension Hx of B/L TKA Cutaneous Candidiasis Primary Biliary Cirrhosis - tried ursodiol, stated she broke out in rash FEN - General diet PPX - Lovenox FULL CODE Dispo - observation for syncope syncopal episode did not cause any damage to the total knee replacement nor the recent tendon surgery. Continue weight bearing as tolerated with a walker. consult cardiology 38 min pt exam, chart review, > 50% of time spent with exam, chart review, pt care coordination Justicifation of Admission Dx: Justicifation of Admission Dx: Justifications for Admission: Justification of Admission Dx: Yes CHF: Hemodynamic Instability History of Present Illness History of Present Illness History of Present Illness History of Present Illness Ms Ng is a 58 yo F w/ PMHx hypertension, hyperlipidemia with a TIA, migraines, Primary biliary cirrhosis, anxiety, depression, osteoarthritis, fibromyalgia, hypothyroidism, GERD, diverticulosis, hemorrhoids, fatty liver who presented to the ER on 02/23/2020 with complaints of syncope and a head injury in her kitchen. Her heard her fall. She notes 1 minutes LOC. Imaging is negative. Head CT was done due to a syncopal event and the head trauma and the patient over 58. Patient resting comfortably on reassessment. EKG normal sinus rhythm with a rate of 71 normal axis normal intervals normal ST segments. Labs with WBC 3.4, Hb 11.8, platelets 207, magnesium 1.7, alkaline phosphatase 167, AST 58 d-dimer 2.51 Does complain of a little bit of right knee pain and some significant right ankle pain and swelling. She notes she was just taken out of her right knee immobilizer recently by orthopedic surgery and did not know if she supposed to continue using her walker or not and she has not been using her walker at home. Admitted for observation. Past Medical History Cardiovascular: HTN, Hyperlipidemia Pulmonary: No pertinent hx CENTRAL NERVOUS SYSTEM: TIA GI: Diverticulosis, Hemorrhoids, Peptic Ulcer disease Heme/Onc: No pertinent hx Hepatobiliary: No pertinent hx Psych: Anxiety Musculoskeletal: Osteoarthritis Rheumatologic: Fibromyalgia Infectious disease: No pertinent hx Endocrine: Hypothyroidism Past Surgical History Past Surgical History: Appendectomy, Cholecystectomy, Total knee replacement, Tonsillectomy, Hysterectomy Family History Family History: Heart Disease, Hypertension Social History Smoke: No ALCOHOL: none Drugs: None Vitals Vitals Vital Signs Date Time Temp Pulse Resp B/P (MAP) Pulse Ox O2 Delivery O2 Flow Rate FiO2 02/25/20 09:39 69 111/62 02/25/20 07:19 18 Room Air 02/25/20 07:00 98.2 96 98.2 Physical Exam General: Alert, Oriented X3, Cooperative, No acute distress Heart: Regular rate Lungs: Clear Abdomen: Normal bowel sounds, Soft, No tenderness, No hepatosplenomegaly, No masses Extremities: No clubbing, No cyanosis, No edema, Normal pulses, Other (right ankle swelling) Skin: No rashes, No breakdown, No significant lesion Assessment and Plan Assessmemt and Plan Problems Medical Problems: (1) Contusion of lower back Status: Acute (2) Head injury Status: Acute (3) Syncope Status: Acute Comment Review of Relevant I have reviewed the following items radha (where applicable) has been applied. Labs Laboratory Tests Test 02/23/20 10:55 02/23/20 13:10 02/24/20 05:05 Troponin I Quantitative < 0.017 ng/mL (0.000-0.055) < 0.017 ng/mL (0.000-0.055) Sodium Level 141 mmol/L (136-145) Potassium Level 4.2 mmol/L (3.5-5.1) Chloride Level 103 mmol/L (98-107) Carbon Dioxide Level 28 mmol/L (21-32) Anion Gap 10 (6-14) Blood Urea Nitrogen 8 mg/dL (7-20) Creatinine 0.9 mg/dL (0.6-1.0) Estimated GFR (Cockcroft-Gault) 63.7 Glucose Level 85 mg/dL (70-99) Calcium Level 9.6 mg/dL (8.5-10.1) Magnesium Level 2.2 mg/dL (1.8-2.4) Medications Current Medications Ondansetron HCl (Zofran) 4 mg PRN Q8HRS PRN IV NAUSEA/VOMITING; Start 02/23/20 at 07:45; Stop 02/24/20 at 07:44; Status DC Magnesium Sulfate 50 ml @ 25 mls/hr 1X ONCE IV Last administered on 02/23/20 08:58; Start 02/23/20 at 08:00; Stop 02/23/20 at 09:59; Status DC Aspirin (Evaristo Aspirin) 325 mg DAILY PO Last administered on 02/25/20 09:38; Start 02/23/20 at 09:00 Fluticasone Propionate (Flonase) 2 spray DAILY NS Last administered on 02/24/20 08:06; Start 02/23/20 at 09:00 Levothyroxine Sodium (Synthroid) 125 mcg DAILY06 PO Last administered on 02/25/20 06:19; Start 02/23/20 at 10:30 Trazodone HCl (Desyrel) 50 mg PRN QHS PRN PO INSOMNIA Last administered on 02/24/20 22:22; Start 02/23/20 at 07:45 Fluoxetine HCl (PROzac) 40 mg DAILY PO Last administered on 02/25/20 09:39; Start 02/23/20 at 09:00 Losartan Potassium (Cozaar) 100 mg DAILY PO Last administered on 02/25/20 09:39; Start 02/23/20 at 09:00 Pantoprazole Sodium (Protonix) 40 mg DAILYAC PO Last administered on 02/25/20 09:39; Start 02/23/20 at 08:00 Acetaminophen/ Hydrocodone Bitart (Lortab 10/325) 1 tab PRN Q6HRS PRN PO PAIN Last administered on 02/24/20 05:57; Start 02/23/20 at 08:15; Stop 02/24/20 at 07:42; Status DC Enoxaparin Sodium (Lovenox 40mg Syringe) 40 mg Q12HR SQ Last administered on 02/25/20at 09:40; Start 02/23/20 at 21:00 Ketorolac Tromethamine (Toradol 30mg Vial) 30 mg PRN Q6HRS PRN IVP INFLAMMATION/PAIN Last administered on 02/24/20at 21:24; Start 02/23/20 at 21:30 Morphine Sulfate (Morphine Sulfate) 4 mg PRN Q4HRS PRN IV PAIN; Start 02/23/20 at 21:30 Acetaminophen/ Hydrocodone Bitart (Lortab 5/325) 1 tab 1X ONCE PO Last administered on 02/24/20at 08:05; Start 02/24/20 at 07:45; Stop 02/24/20 at 07:46; Status DC Acetaminophen/ Hydrocodone Bitart (Lortab 7.5/325) 2 tab PRN Q6HRS PRN PO MODERATE TO SEVERE PAIN Last administered on 02/25/20at 06:19; Start 02/24/20 at 07:45 Psyllium Hydrophilic Mucilloid (Metamucil Fiber Packet) 1 pkt DAILY PO Last administered on 02/24/20at 16:53; Start 02/24/20 at 16:00 Active Scripts Active Nystop (Nystatin) 60 Gm Powder 1 Nina TP BID 30 Days use topically twice a day to affected area Reported Children's Aspirin (Aspirin) 81 Mg Tab.chew 1 Tab PO DAILY 30 Days Hydrocodone-Apap 10-325 (Hydrocodone Bit/Acetaminophen) 1 Tab Tablet 1 Tab PO PRN Q6HRS PRN Omeprazole 20 Mg Capsule.dr [place] Cap PO DAILY LAST DOSE GIVEN: DATE:04/15/17 TIME:9:00 a.m. Fluticasone Propionate Nasal [place] (Fluticasone Propionate) 16 Gm [place].susp 2 [place] NS DAILY LAST DOSE GIVEN: DATE:04/15/17 TIME:9:00 a.m. Losartan Potassium 100 Mg Tablet 100 Mg PO HS [Xysol] 1 Tab PO HS Trazodone Hcl 50 Mg Tablet 50 Mg PO DAILY PRN Cyclobenzaprine Hcl 10 Mg Tablet 1 Tab PO TID LAST DOSE GIVEN: DATE:04/15/17 TIME:2:00 p.m. Niaspan (Niacin) 500 Mg Tab.er.24h 500 Mg PO HS Fish Oil ([place]-3 Fatty Acids) 500 Mg Capsule.dr [place],400 Mg PO Fluoxetine Hcl 20 Mg Tablet 40 Mg PO DAILY LAST DOSE GIVEN: DATE:04/15/17 TIME: 9:00 a.m. Levothyroxine Sodium 125 Mcg Tablet 125 Mcg PO DAILY LAST DOSE GIVEN: DATE:04/15/17 TIME:7:30 a.m. Alprazolam 1 Mg Tablet 1 Mg PO DAILY PRN Meds not given this hospital admission. May resume home medications as approved by Physician. Vitals/I & O Vital Sign - Last 24 Hours 02/24/20 02/24/20 02/24/20 02/24/20 11:00 12:02 13:22 15:00 Temp 97.9 97.9 97.9 97.9 Pulse 71 76 Resp 20 16 B/P (MAP) 142/82 (102) 123/69 (87) Pulse Ox 98 90 O2 Delivery Room Air Room Air 02/24/20 02/24/20 02/24/20 02/24/20 18:15 19:00 19:16 21:17 Temp 97.9 97.9 Pulse 77 Resp 20 B/P (MAP) 136/85 (102) Pulse Ox 92 O2 Delivery Room Air Room Air Room Air 02/24/20 02/25/20 02/25/20 02/25/20 23:00 00:32 01:32 03:00 Temp 98.5 98.5 98.5 98.5 Pulse 78 70 Resp 16 20 18 16 B/P (MAP) 131/78 (95) 131/78 (95) Pulse Ox 92 92 O2 Delivery Room Air Room Air 02/25/20 02/25/20 02/25/20 02/25/20 06:19 07:00 07:19 09:39 Temp 98.2 98.2 Pulse 69 69 Resp 20 18 18 B/P (MAP) 111/62 (78) 111/62 Pulse Ox 96 O2 Delivery Room Air Room Air Intake and Output 02/24/20 02/24/20 02/25/20 15:00 23:00 07:00 Intake Total 220 ml 200 ml Output Total 300 ml 350 ml Balance 220 ml -100 ml -350 ml Justicifation of Admission Dx: Justifications for Admission: Justification of Admission Dx: Yes CHF: Hemodynamic Instability ALEXYS ALICEA MD Feb 25, 2020 10:06
[2020-02-25 11:00] VITALS: BP 115/61
--- NOTE | 2020-02-25 11:08 | NUR ---
SW following. Discussed with RN, pt from home, room air, cardiac diet. PT recommending outpatient. MRI today. RN advised no SW needs, anticipates possible discharge home today if MRI clear. SW will continue to follow.
--- NOTE | 2020-02-25 11:29 | PDOC2 ---
MICHELLE STRONG REPORTING LEAD 02/25/20 1129: CARDIAC CONSULT DATE OF CONSULT Date of Consult DATE: 02/25/20 TIME: 11:15 REASON FOR CONSULT Reason for Consult: syncope REFERRING PHYSICIAN Referring Physician: Dr. Lima SOURCE Source: Chart review, Patient HISTORY OF PRESENT ILLNESS HISTORY OF PRESENT ILLNESS This is a 59 yo female who presented secondary syncopal episode. Reports she was walking to the bathroom the other morning and felt lightheaded and had a syncopal event hitting her head. Came into the ED for further evaluation and treatment. Denies any chest pain, palpitations, diaphoresis, or nausea/vomiting. Currently feels slightly dizzy. No acute event noted on tele. Reports h/o TIA and intermittent dizziness prior. PAST MEDICAL HISTORY Past Medical History Cardiovascular: HTN, Hyperlipidemia Pulmonary: No pertinent hx CENTRAL NERVOUS SYSTEM: TIA GI: Diverticulosis, Hemorrhoids, Peptic Ulcer disease Heme/Onc: No pertinent hx Hepatobiliary: No pertinent hx Psych: Anxiety Musculoskeletal: Osteoarthritis Rheumatologic: Fibromyalgia Infectious disease: No pertinent hx ENT: No pertinent hx Endocrine: Hypothyroidism Dermatology: No pertinent hx PAST SURGICAL HISTORY Past Surgical History Appendectomy, Cholecystectomy, Total knee replacement (bilateral), T onsillectomy, Hysterectomy FAMILY HISTORY Family History: Heart Disease, Hypertension, Stroke SOCIAL HISTORY Social History Smoke: No ALCOHOL: none Drugs: None Lives: with Family CURRENT MEDICATIONS CURRENT MEDICATIONS Current Medications Medications (Trade) Dose Ordered Sig/Aretha Route PRN Reason Start Time Stop Time Status Last Admin Dose Admin Psyllium Hydrophilic Mucilloid (Metamucil Fiber Packet) 1 pkt DAILY PO 02/24/20 16:00 02/24/20 16:53 ALLERGIES ALLERGIES: Coded Allergies: celecoxib (Verified Allergy, Mild, 01/08/20) GI UPSET STOMACH I S O L A T I O N *CONTACT* (Verified Allergy, Unknown, 01/08/20) ESBL acetaminophen (Verified Adverse Reaction, Severe, HAS FATTY LIVER AND PBC: LIMITED INTAKE PLEASE, 02/23/20) Cannot take d/t Primary Biliary Cirrhosis LORTAB IS HOME MED prochlorperazine (Verified Adverse Reaction, Severe, 01/08/20) SKIN CRAWLING Stsssmw-Fzo-Bkq Reductase Inhibitor (Verified Adverse Reaction, Intermediate, INCREASED LIVER ENZYMES, 01/08/20) ROS Review of System 14 point ROS conducted with pertinent positives noted above in hPi PHYSICAL EXAM General: Alert, Oriented X3, Cooperative, No acute distress HEENT: Atraumatic Lungs: Clear to auscultation, Normal air movement Heart: Regular rate, No murmurs Abdomen: Soft, No tenderness, Other (obese ) Extremities: No edema, Normal pulses Skin: No significant lesion Neuro: Normal speech, Sensation intact Psych/Mental Status: Mental status NL, Mood NL MUSCULOSKELETAL: Osteoarthritic changes both hands VITALS/I&O VITALS/I&O: Vital Signs Date Time Temp Pulse Resp B/P (MAP) Pulse Ox O2 Delivery O2 Flow Rate FiO2 02/25/20 09:39 69 111/62 02/25/20 08:00 Room Air 02/25/20 07:19 18 02/25/20 07:00 98.2 96 98.2 I & O 02/24/20 02/24/20 02/25/20 15:00 23:00 07:00 Intake Total 220 ml 200 ml Output Total 300 ml 350 ml Balance 220 ml -100 ml -350 ml ECHOCARDIOGRAM ECHOCARDIOGRAM <Conclusion> The left ventricular systolic function is normal. The Ejection Fraction is 65%. There is normal LV segmental wall motion. Transmitral Doppler flow pattern is Grade I-abnormal relaxation pattern. Trace mitral regurgitation. Trace tricuspid regurgitation with an estimated PAP of 31 mmHg. There is no evidence of significant pericardial effusion. DATE: 03/27/19 1621 HEART CATH HEART CATH FINDINGS 1. Hemodynamics: Left ventricular end-diastolic pressure of 15 mmHg. No pullback gradient across the aortic valve. 2. Coronary angiography: a. The left main coronary artery arose from the left sinus of Valsalva, gave rise to the left anterior descending and left circumflex arteries and did not show any significant stenosis. b. The left anterior descending artery did not show any significant stenosis. c. The left circumflex artery did not show any significant stenosis. d. The right coronary artery was a large and dominant vessel arising from the right sinus of Valsalva that did not show any significant stenosis. Conclusion No significant coronary artery disease. DATE: 03/27/19 1336 ASSESSMENT/PLAN ASSESSMENT/PLAN 1. Syncopal episode; no acute events on tele. Carotid US unremarkable. CT head without acute findings. MRI pending. 2. Hypertension; controlled 3. Hyperlipidemia; allergy to statins 4. Hypomagnesemia; replaced 5. Morbid obesity, [place] 6. Elevated d-dimer. 7. H/o TIA, migraines Recommendations Orthos Echo to assess LV systolic function Outpatient event monitor Supportive care MARSHALL RAMIREZ MD 02/25/20 1722: CARDIAC CONSULT ASSESSMENT/PLAN ASSESSMENT/PLAN The patient was seen and interviewed as well as examined at the bedside. The chart was reviewed. The case was discussed. Agree with the plan of care. MICHELLE STRONG APRN Feb 25, 2020 11:29 MARSHALL RAMIREZ MD Feb 25, 2020 17:22
--- NOTE | 2020-02-25 11:33 | PDOC ---
PROGRESS NOTES Assessment Problems Medical Problems: (1) Contusion of lower back Status: Acute (2) Head injury Status: Acute (3) Syncope Status: Acute Syncope Concussion I have seen her in the past for migraines Also has history of TIA, anxiety, depression, fibromyalgia, hypothyroidism Plan Await brain MRI Okay for discharge if it is negative Follow-up with algae as needed. Subjective She is now fairly certain she simply fell and struck her head and was knocked out Objective Vital Signs Date Time Temp Pulse Resp B/P (MAP) Pulse Ox O2 Delivery O2 Flow Rate FiO2 02/25/20 09:39 69 111/62 02/25/20 08:00 Room Air 02/25/20 07:19 18 02/25/20 07:00 98.2 96 98.2 Intake and Output 02/25/20 07:00 Intake Total 420 ml Output Total 650 ml Balance -230 ml Intake Oral 420 ml Output Urine Total 650 ml # Voids 2 # Bowel Movements 1 PHYSICAL EXAM Alert. Oriented to time, place and person. PERRL. EOMI. CN: no focal findings. Muscle tone: normal. Muscle strength: 5/5 DTR: 2+ Plantar reflex: flexor Gait: not examined in bed. Sensory exam: no abnormal findings. No cerebellar signs elicited. Review of Relevant I have reviewed the following items radha (where applicable) has been applied. Labs Laboratory Tests Test 02/23/20 13:10 02/24/20 05:05 Troponin I Quantitative < 0.017 ng/mL (0.000-0.055) Sodium Level 141 mmol/L (136-145) Potassium Level 4.2 mmol/L (3.5-5.1) Chloride Level 103 mmol/L (98-107) Carbon Dioxide Level 28 mmol/L (21-32) Anion Gap 10 (6-14) Blood Urea Nitrogen 8 mg/dL (7-20) Creatinine 0.9 mg/dL (0.6-1.0) Estimated GFR (Cockcroft-Gault) 63.7 Glucose Level 85 mg/dL (70-99) Calcium Level 9.6 mg/dL (8.5-10.1) Magnesium Level 2.2 mg/dL (1.8-2.4) Medications Current Medications Ondansetron HCl (Zofran) 4 mg PRN Q8HRS PRN IV NAUSEA/VOMITING; Start 02/23/20 at 07:45; Stop 02/24/20 at 07:44; Status DC Magnesium Sulfate 50 ml @ 25 mls/hr 1X ONCE IV Last administered on 02/23/20 08:58; Start 02/23/20 at 08:00; Stop 02/23/20 at 09:59; Status DC Aspirin (Evaristo Aspirin) 325 mg DAILY PO Last administered on 02/25/20 09:38; Start 02/23/20 at 09:00 Fluticasone Propionate (Flonase) 2 spray DAILY NS Last administered on 02/24/20 08:06; Start 02/23/20 at 09:00 Levothyroxine Sodium (Synthroid) 125 mcg DAILY06 PO Last administered on 02/25/20 06:19; Start 02/23/20 at 10:30 Trazodone HCl (Desyrel) 50 mg PRN QHS PRN PO INSOMNIA Last administered on 02/24/20 22:22; Start 02/23/20 at 07:45 Fluoxetine HCl (PROzac) 40 mg DAILY PO Last administered on 02/25/20 09:39; Start 02/23/20 at 09:00 Losartan Potassium (Cozaar) 100 mg DAILY PO Last administered on 02/25/20 09:39; Start 02/23/20 at 09:00 Pantoprazole Sodium (Protonix) 40 mg DAILYAC PO Last administered on 02/25/20 09:39; Start 02/23/20 at 08:00 Acetaminophen/ Hydrocodone Bitart (Lortab 10/325) 1 tab PRN Q6HRS PRN PO PAIN Last administered on 02/24/20at 05:57; Start 02/23/20 at 08:15; Stop 02/24/20 at 07:42; Status DC Enoxaparin Sodium (Lovenox 40mg Syringe) 40 mg Q12HR SQ Last administered on 02/25/20 09:40; Start 02/23/20 at 21:00 Ketorolac Tromethamine (Toradol 30mg Vial) 30 mg PRN Q6HRS PRN IVP INFLAMMATION/PAIN Last administered on 02/24/20at 21:24; Start 02/23/20 at 21:30 Morphine Sulfate (Morphine Sulfate) 4 mg PRN Q4HRS PRN IV PAIN; Start 02/23/20 at 21:30 Acetaminophen/ Hydrocodone Bitart (Lortab 5/325) 1 tab 1X ONCE PO Last administered on 02/24/20at 08:05; Start 02/24/20 at 07:45; Stop 02/24/20 at 07:46; Status DC Acetaminophen/ Hydrocodone Bitart (Lortab 7.5/325) 2 tab PRN Q6HRS PRN PO MODERATE TO SEVERE PAIN Last administered on 02/25/20at 06:19; Start 02/24/20 at 07:45 Psyllium Hydrophilic Mucilloid (Metamucil Fiber Packet) 1 pkt DAILY PO Last administered on 02/24/20at 16:53; Start 02/24/20 at 16:00 Active Scripts Active Nystop (Nystatin) 60 Gm Powder 1 Nina TP BID 30 Days use topically twice a day to affected area Reported Children's Aspirin (Aspirin) 81 Mg Tab.chew 1 Tab PO DAILY 30 Days Hydrocodone-Apap 10-325 (Hydrocodone Bit/Acetaminophen) 1 Tab Tablet 1 Tab PO PRN Q6HRS PRN Omeprazole 20 Mg Capsule. 1 Cap PO DAILY LAST DOSE GIVEN: DATE:04/15/17 TIME:9:00 a.m. Fluticasone Propionate Nasal [place] (Fluticasone Propionate) 16 Gm [place].susp 2 [place] NS DAILY LAST DOSE GIVEN: DATE:04/15/17 TIME:9:00 a.m. Losartan Potassium 100 Mg Tablet 100 Mg PO HS [Xysol] 1 Tab PO HS Trazodone Hcl 50 Mg Tablet 50 Mg PO DAILY PRN Cyclobenzaprine Hcl 10 Mg Tablet 1 Tab PO TID LAST DOSE GIVEN: DATE:04/15/17 TIME:2:00 p.m. Niaspan (Niacin) 500 Mg Tab.er.24h 500 Mg PO HS Fish Oil ([place]-3 Fatty Acids) 500 Mg Capsule.dr [place],400 Mg PO Fluoxetine Hcl 20 Mg Tablet 40 Mg PO DAILY LAST DOSE GIVEN: DATE:04/15/17 TIME: 9:00 a.m. Levothyroxine Sodium 125 Mcg Tablet 125 Mcg PO DAILY LAST DOSE GIVEN: DATE:04/15/17 TIME:7:30 a.m. Alprazolam 1 Mg Tablet 1 Mg PO DAILY PRN Meds not given this hospital admission. May resume home medications as approved by Physician. Vitals/I & O Vital Sign - Last 24 Hours 02/24/20 02/24/20 02/24/20 02/24/20 12:02 13:22 15:00 18:15 Temp 97.9 97.9 Pulse 76 Resp 16 B/P (MAP) 123/69 (87) Pulse Ox 90 O2 Delivery Room Air Room Air Room Air 02/24/20 02/24/20 02/24/20 02/24/20 19:00 19:16 21:17 23:00 Temp 97.9 98.5 97.9 98.5 Pulse 77 78 Resp 20 16 B/P (MAP) 136/85 (102) 131/78 (95) Pulse Ox 92 92 O2 Delivery Room Air Room Air 02/25/20 02/25/20 02/25/20 02/25/20 00:32 01:32 03:00 06:19 Temp 98.5 98.5 Pulse 70 Resp 20 18 16 20 B/P (MAP) 131/78 (95) Pulse Ox 92 O2 Delivery Room Air Room Air Room Air 02/25/20 02/25/20 02/25/20 02/25/20 07:00 07:19 08:00 09:39 Temp 98.2 98.2 Pulse 69 69 Resp 18 18 B/P (MAP) 111/62 (78) 111/62 Pulse Ox 96 O2 Delivery Room Air Room Air Intake and Output 02/24/20 02/24/20 02/25/20 15:00 23:00 07:00 Intake Total 220 ml 200 ml Output Total 300 ml 350 ml Balance 220 ml -100 ml -350 ml Justicifation of Admission Dx: Justifications for Admission: Justification of Admission Dx: Yes CHF: Hemodynamic Instability MELIDA MACKAY MD Feb 25, 2020 11:33
[2020-02-25] MEDS: FLUTICASONE 50MCG/NASAL SPRAY 16GM BOTTLE. NS SCH (12:33)
[2020-02-25 12:40] LABS: CHOLESTEROL/HDL RATIO 4.3
[2020-02-25 15:00] VITALS: BP 193/76
--- NOTE | 2020-02-25 16:11 | RAD ---
MRI Brain without contrast History:Syncope Technique: Multiplanar, multisequential noncontrast MR imaging was performed of the brain. Comparison: May 21, 2019 Findings: There is some motion degradation. There is no evidence of recent infarct or cytotoxic edema. The ventricles, sulci, and cisterns are within normal limits in size and configuration. There is no significant midline shift, intraaxial mass effect, or focal abnormal extra-axial fluid collection. There is no new significant signal abnormality of the brain parenchyma. There is preservation of the major intracranial flow-voids at the skull base. The cerebellar tonsils are normal in location. There is no significant abnormality of the pineal gland or pituitary gland. Paranasal sinuses are overall aerated. There is patchy very minimal fluid and thickening of the left mastoid air cells and very mild thickening on the right. Some nonspecific heterogeneous low signal of the marrow of nonexpanded clivus is similar. Impression: 1. There is no new significant intracranial abnormality. Electronically signed by: Tru Joshi MD (02/25/2020 4:08 PM) [id number]
[2020-02-25] MEDS: KETOROLAC 30 MG/ML VIAL. IVP PRN (16:20)
[2020-02-25 19:00] VITALS: BP 167/89
[2020-02-25 23:00] VITALS: BP 144/93
[2020-02-26] MEDS: traZODone 50 MG TABLET. PO PRN (00:01)
[2020-02-26 03:00] VITALS: BP 147/74
[2020-02-26] MEDS: HYDROcodone/APAP 7.5/325MG 1 TAB TABLET PO PRN ×2 (04:45→14:40)
--- NOTE | 2020-02-26 05:21 | EKG ---
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
[2020-02-26] MEDS: LEVOTHYROXINE 125 MCG TABLET PO SCH (05:48)
[2020-02-26] MEDS: PANTOPRAZOLE 40 MG TABLET.DR. PO SCH (05:48)
[2020-02-26 07:00] VITALS: BP 153/63
[2020-02-26] MEDS: ENOXAPARIN 40 MG/0.4 ML SYRINGE. SQ SCH (08:30)
[2020-02-26] MEDS: PSYLLIUM HUSK (SUGAR FREE) 1 PKT PACKET PO SCH (08:31)
[2020-02-26] MEDS: FLUTICASONE 50MCG/NASAL SPRAY 16GM BOTTLE. NS SCH (08:31)
[2020-02-26] MEDS: LOSARTAN POTASSIUM 50 MG TABLET. PO SCH (08:31)
[2020-02-26] MEDS: FLUoxetine HCL 20 MG CAPSULE PO SCH (08:32)
[2020-02-26] MEDS: ASPIRIN 325 MG TABLET PO SCH (08:32)
--- NOTE | 2020-02-26 10:01 | NUR ---
SW following. Discussed with RN, pt likely will discharge after echo today. RN advised no SW needs.
--- NOTE | 2020-02-26 10:37 | PDOC ---
PROGRESS NOTES Date of Service: DATE: 02/26/20 TIME: 10:36 Chief Complaint Chief Complaint VTE Prophylaxis Ordered VTE Prophylaxis Devices: Yes VTE Pharmacological Prophylaxi: Yes DISCHARGE DX Assessment/Plan A/P: Syncope - uncertain etiology, likely medication related. will maintain telemetry. Consult neurology, rule out DVT Elevated d dimer -syncope and loss of consciousness, will obtain right lower extremity ultrasound. Right knee pain - XR stable. Ortho asked to see regarding weight bearing status Right ankle pain - may be sprained, recommend air-cast hard splint 6 weeks. PT to see Migraines - on emgality outpatient injections Morbid Obesity, severe Obesity Hypoventilation Syndrome Dyslipidemia Hypertension Hx of B/L TKA Cutaneous Candidiasis Primary Biliary Cirrhosis - tried ursodiol, stated she broke out in rash FEN - General diet PPX - Lovenox FULL CODE Dispo - observation for syncope syncopal episode did not cause any damage to the total knee replacement nor the recent tendon surgery. Continue weight bearing as tolerated with a walker. consult cardiology Echo to assess LV systolic function Outpatient event monitor Outpatient event monitor has been arranged Follow up with Dr. Pagan as scheduled. 02/25 refused to stay for echo, insists on d/c now , can schedule as outpatient per cardiology 38 min pt exam, chart review d/c planning , > 50% of time spent with exam, chart review, pt care coordination Justicifation of Admission Dx: Justicifation of Admission Dx: Justifications for Admission: Justification of Admission Dx: Yes CHF: Hemodynamic Instability History of Present Illness History of Present Illness History of Present Illness History of Present Illness Ms Ng is a 58 yo F w/ PMHx hypertension, hyperlipidemia with a TIA, migraines, Primary biliary cirrhosis, anxiety, depression, osteoarthritis, fibromyalgia, hypothyroidism, GERD, diverticulosis, hemorrhoids, fatty liver who presented to the ER on 02/23/2020 with complaints of syncope and a head injury in her kitchen. Her heard her fall. She notes 1 minutes LOC. Imaging is negative. Head CT was done due to a syncopal event and the head trauma and the patient over 58. Patient resting comfortably on reassessment. EKG normal sinus rhythm with a rate of 71 normal axis normal intervals normal ST segments. Labs with WBC 3.4, Hb 11.8, platelets 207, magnesium 1.7, alkaline phosphatase 167, AST 58 d-dimer 2.51 Does complain of a little bit of right knee pain and some significant right ankle pain and swelling. She notes she was just taken out of her right knee immobilizer recently by orthopedic surgery and did not know if she supposed to continue using her walker or not and she has not been using her walker at home. Admitted for observation. Past Medical History Cardiovascular: HTN, Hyperlipidemia Pulmonary: No pertinent hx CENTRAL NERVOUS SYSTEM: TIA GI: Diverticulosis, Hemorrhoids, Peptic Ulcer disease Heme/Onc: No pertinent hx Hepatobiliary: No pertinent hx Psych: Anxiety Musculoskeletal: Osteoarthritis Rheumatologic: Fibromyalgia Infectious disease: No pertinent hx Endocrine: Hypothyroidism Past Surgical History Past Surgical History: Appendectomy, Cholecystectomy, Total knee replacement, Tonsillectomy, Hysterectomy Family History Family History: Heart Disease, Hypertension Social History Smoke: No ALCOHOL: none Drugs: None Vitals Vitals Vital Signs Date Time Temp Pulse Resp B/P (MAP) Pulse Ox O2 Delivery O2 Flow Rate FiO2 02/26/20 08:31 62 147/74 02/26/20 07:00 98.1 18 94 Room Air 98.1 Physical Exam General: Alert, Oriented X3, Cooperative, No acute distress Heart: Regular rate, Normal S1, No murmurs Lungs: Clear Abdomen: Soft, No tenderness, Other (obese ) Extremities: No cyanosis, No edema, Normal pulses Skin: No significant lesion Labs LABS MRI Brain without contrast History:Syncope Technique: Multiplanar, multisequential noncontrast MR imaging was performed of the brain. Comparison: May 21, 2019 Findings: There is some motion degradation. There is no evidence of recent infarct or cytotoxic edema. The ventricles, sulci, and cisterns are within normal limits in size and configuration. There is no significant midline shift, intraaxial mass effect, or focal abnormal extra-axial fluid collection. There is no new significant signal abnormality of the brain parenchyma. There is preservation of the major intracranial flow-voids at the skull base. The cerebellar tonsils are normal in location. There is no significant abnormality of the pineal gland or pituitary gland. Paranasal sinuses are overall aerated. There is patchy very minimal fluid and thickening of the left mastoid air cells and very mild thickening on the right. Some nonspecific heterogeneous low signal of the marrow of nonexpanded clivus is similar. Impression: 1. There is no new significant intracranial abnormality. Electronically signed by: Massiel Waddell MD (02/25/2020 4:08 PM) [id number] DICTATED and SIGNED BY: MASSIEL WADDELL MD DATE: 02/25/201607 Assessment and Plan Assessmemt and Plan Problems Medical Problems: (1) Contusion of lower back Status: Acute (2) Head injury Status: Acute (3) Syncope Status: Acute Comment Review of Relevant I have reviewed the following items radha (where applicable) has been applied. Medications Current Medications Ondansetron HCl (Zofran) 4 mg PRN Q8HRS PRN IV NAUSEA/VOMITING; Start 02/23/20 at 07:45; Stop 02/24/20 at 07:44; Status DC Magnesium Sulfate 50 ml @ 25 mls/hr 1X ONCE IV Last administered on 02/23/20 08:58; Start 02/23/20 at 08:00; Stop 02/23/20 at 09:59; Status DC Aspirin (Evaristo Aspirin) 325 mg DAILY PO Last administered on 02/26/20 08:32; Start 02/23/20 at 09:00 Fluticasone Propionate (Flonase) 2 spray DAILY NS Last administered on 02/26/20 08:31; Start 02/23/20 at 09:00 Levothyroxine Sodium (Synthroid) 125 mcg DAILY06 PO Last administered on 02/26/20 05:48; Start 02/23/20 at 10:30 Trazodone HCl (Desyrel) 50 mg PRN QHS PRN PO INSOMNIA Last administered on 02/15 00:01; Start 02/23/20 at 07:45 Fluoxetine HCl (PROzac) 40 mg DAILY PO Last administered on 02/26/20 08:32; Start 02/23/20 at 09:00 Losartan Potassium (Cozaar) 100 mg DAILY PO Last administered on 02/26/20 08:31; Start 02/23/20 at 09:00 Pantoprazole Sodium (Protonix) 40 mg DAILYAC PO Last administered on 02/26/20 05:48; Start 02/23/20 at 08:00 Acetaminophen/ Hydrocodone Bitart (Lortab 10/325) 1 tab PRN Q6HRS PRN PO PAIN Last administered on 8/9/20at 05:57; Start 02/23/20 at 08:15; Stop 02/24/20 at 07 :42; Status DC Enoxaparin Sodium (Lovenox 40mg Syringe) 40 mg Q12HR SQ Last administered on 02/26/20at 08:30; Start 02/23/20 at 21:00 Ketorolac Tromethamine (Toradol 30mg Vial) 30 mg PRN Q6HRS PRN IVP INFLAMMATION/PAIN Last administered on 02/25/20at 16:20; Start 02/23/20 at 21:30 Morphine Sulfate (Morphine Sulfate) 4 mg PRN Q4HRS PRN IV PAIN; Start 02/23/20 at 21:30 Acetaminophen/ Hydrocodone Bitart (Lortab 5/325) 1 tab 1X ONCE PO Last administered on 02/24/20at 08:05; Start 02/24/20 at 07:45; Stop 02/24/20 at 07:46; Status DC Acetaminophen/ Hydrocodone Bitart (Lortab 7.5/325) 2 tab PRN Q6HRS PRN PO MODERATE TO SEVERE PAIN Last administered on 02/26/20at 04:45; Start 02/24/20 at 07:45 Psyllium Hydrophilic Mucilloid (Metamucil Fiber Packet) 1 pkt DAILY PO Last administered on 02/26/20at 08:31; Start 02/24/20 at 16:00 Active Scripts Active Nystop (Nystatin) 60 Gm Powder 1 Nina TP BID 30 Days use topically twice a day to affected area Reported Children's Aspirin (Aspirin) 81 Mg Tab.chew 1 Tab PO DAILY 30 Days Hydrocodone-Apap 10-325 (Hydrocodone Bit/Acetaminophen) 1 Tab Tablet 1 Tab PO PRN Q6HRS PRN Omeprazole 20 Mg Capsule. 1 Cap PO DAILY LAST DOSE GIVEN: DATE:04/15/17 TIME:9:00 a.m. Fluticasone Propionate Nasal [place] (Fluticasone Propionate) 16 Gm [place].susp 2 [place] NS DAILY LAST DOSE GIVEN: DATE:04/15/17 TIME:9:00 a.m. Losartan Potassium 100 Mg Tablet 100 Mg PO HS [Xysol] 1 Tab PO HS Trazodone Hcl 50 Mg Tablet 50 Mg PO DAILY PRN Cyclobenzaprine Hcl 10 Mg Tablet 1 Tab PO TID LAST DOSE GIVEN: DATE:04/15/17 TIME:2:00 p.m. Niaspan (Niacin) 500 Mg Tab.er.24h 500 Mg PO HS Fish Oil ([place]-3 Fatty Acids) 500 Mg Capsule.dr 1,400 Mg PO Fluoxetine Hcl 20 Mg Tablet 40 Mg PO DAILY LAST DOSE GIVEN: DATE:04/15/17 TIME: 9:00 a.m. Levothyroxine Sodium 125 Mcg Tablet 125 Mcg PO DAILY LAST DOSE GIVEN: DATE:04/15/17 TIME:7:30 a.m. Alprazolam 1 Mg Tablet 1 Mg PO DAILY PRN Meds not given this hospital admission. May resume home medications as approved by Physician. Vitals/I & O Vital Sign - Last 24 Hours 02/25/20 02/25/20 02/25/20 02/25/20 11:00 14:43 15:00 15:45 Temp 98.0 97.5 98.0 97.5 Pulse 67 75 Resp 20 18 18 19 B/P (MAP) 115/61 (79) 193/76 (115) Pulse Ox 95 95 96 96 O2 Delivery Room Air Room Air 02/25/20 02/25/20 02/25/20 02/25/20 19:00 20:00 20:00 20:57 Temp 97.8 97.8 Pulse 72 Resp 18 18 B/P (MAP) 167/89 (115) Pulse Ox 91 91 O2 Delivery Room Air Room Air Room Air Room Air 02/25/20 02/25/20 02/26/20 02/26/20 21:57 23:00 03:00 04:45 Temp 97.5 98.3 97.5 98.3 Pulse 70 62 Resp 20 20 20 B/P (MAP) 144/93 (110) 147/74 (98) Pulse Ox 96 96 95 95 O2 Delivery Room Air Room Air Room Air Room Air 02/26/20 02/26/20 02/26/20 05:45 07:00 08:31 Temp 98.1 98.1 Pulse 66 62 Resp 20 18 B/P (MAP) 153/63 (93) 147/74 Pulse Ox 95 94 O2 Delivery Room Air Room Air Intake and Output 02/25/20 02/25/20 02/26/20 15:00 23:00 07:00 Intake Total 240 ml 440 ml 540 ml Output Total 300 ml Balance 240 ml 140 ml 540 ml Justicifation of Admission Dx: Justifications for Admission: Justification of Admission Dx: Yes CHF: Hemodynamic Instability ALEXYS ALICEA MD Feb 26, 2020 10:37
[2020-02-26 10:55] VITALS: BP 148/52
--- NOTE | 2020-02-26 13:30 | PDOC ---
PROGRESS NOTES Assessment Problems Medical Problems: (1) Contusion of lower back Status: Acute (2) Head injury Status: Acute (3) Syncope Status: Acute Syncope Concussion I have seen her in the past for migraines Also has history of TIA, anxiety, depression, fibromyalgia, hypothyroidism Plan Okay for discharge Follow-up with me as needed. Subjective Wants to go home Objective Vital Signs Date Time Temp Pulse Resp B/P (MAP) Pulse Ox O2 Delivery O2 Flow Rate FiO2 02/26/20 10:55 97.9 68 18 148/52 (84) 96 Room Air 97.9 Intake and Output 02/26/20 07:00 Intake Total 1220 ml Output Total 300 ml Balance 920 ml Intake Oral 1220 ml Output Urine Total 300 ml # Voids 5 PHYSICAL EXAM Alert. Oriented to time, place and person. PERRL. EOMI. CN: no focal findings. Muscle tone: normal. Muscle strength: 5/5 DTR: 2+ Plantar reflex: flexor Gait: not examined in bed. Sensory exam: no abnormal findings. No cerebellar signs elicited. Review of Relevant I have reviewed the following items radha (where applicable) has been applied. Medications Current Medications Ondansetron HCl (Zofran) 4 mg PRN Q8HRS PRN IV NAUSEA/VOMITING; Start 02/23/20 at 07:45; Stop 02/24/20 at 07:44; Status DC Magnesium Sulfate 50 ml @ 25 mls/hr 1X ONCE IV Last administered on 02/23/20at 08:58; Start 02/23/20 at 08:00; Stop 02/23/20 at 09:59; Status DC Aspirin (Evaristo Aspirin) 325 mg DAILY PO Last administered on 02/26/20at 08:32; Start 02/23/20 at 09:00 Fluticasone Propionate (Flonase) 2 spray DAILY NS Last administered on 02/26/20at 08:31; Start 02/23/20 at 09:00 Levothyroxine Sodium (Synthroid) 125 mcg DAILY06 PO Last administered on 02/26/20at 05:48; Start 02/23/20 at 10:30 Trazodone HCl (Desyrel) 50 mg PRN QHS PRN PO INSOMNIA Last administered on 02/26/20at 00:01; Start 02/23/20 at 07:45 Fluoxetine HCl (PROzac) 40 mg DAILY PO Last administered on 02/26/20 08:32; Start 02/23/20 at 09:00 Losartan Potassium (Cozaar) 100 mg DAILY PO Last administered on 02/26/20 08:31; Start 02/23/20 at 09:00 Pantoprazole Sodium (Protonix) 40 mg DAILYAC PO Last administered on 02/26/20 05:48; Start 02/23/20 at 08:00 Acetaminophen/ Hydrocodone Bitart (Lortab 10/325) 1 tab PRN Q6HRS PRN PO PAIN Last administered on 02/24/20 05:57; Start 02/23/20 at 08:15; Stop 02/24/20 at 07:42; Status DC Enoxaparin Sodium (Lovenox 40mg Syringe) 40 mg Q12HR SQ Last administered on 02/26/20at 08:30; Start 02/23/20 at 21:00 Ketorolac Tromethamine (Toradol 30mg Vial) 30 mg PRN Q6HRS PRN IVP INFLAMMATION/PAIN Last administered on 02/25/20at 16:20; Start 02/23/20 at 21:30 Morphine Sulfate (Morphine Sulfate) 4 mg PRN Q4HRS PRN IV severe pain; Start 02/23/20 at 21:30 Acetaminophen/ Hydrocodone Bitart (Lortab 5/325) 1 tab 1X ONCE PO Last administered on 02/24/20at 08:05; Start 02/24/20 at 07:45; Stop 02/24/20 at 07:46; Status DC Acetaminophen/ Hydrocodone Bitart (Lortab 7.5/325) 2 tab PRN Q6HRS PRN PO MODERATE TO SEVERE PAIN Last administered on 02/26/20at 04:45; Start 02/24/20 at 07:45 Psyllium Hydrophilic Mucilloid (Metamucil Fiber Packet) 1 pkt DAILY PO Last administered on 02/26/20 08:31; Start 02/24/20 at 16:00 Active Scripts Active Nystop (Nystatin) 60 Gm Powder 1 Nina TP BID 30 Days use topically twice a day to affected area Reported Children's Aspirin (Aspirin) 81 Mg Tab.chew 1 Tab PO DAILY 30 Days Hydrocodone-Apap 10-325 (Hydrocodone Bit/Acetaminophen) 1 Tab Tablet 1 Tab PO PRN Q6HRS PRN Omeprazole 20 Mg Capsule.dr 1 Cap PO DAILY LAST DOSE GIVEN: DATE:04/15/17 TIME:9:00 a.m. Fluticasone Propionate Nasal [employer] (Fluticasone Propionate) 16 Gm [employer].susp 2 [employer] NS DAILY LAST DOSE GIVEN: DATE:04/15/17 TIME:9:00 a.m. Losartan Potassium 100 Mg Tablet 100 Mg PO HS [Xysol] 1 Tab PO HS Trazodone Hcl 50 Mg Tablet 50 Mg PO DAILY PRN Cyclobenzaprine Hcl 10 Mg Tablet 1 Tab PO TID LAST DOSE GIVEN: DATE:04/15/17 TIME:2:00 p.m. Niaspan (Niacin) 500 Mg Tab.er.24h 500 Mg PO HS Fish Oil ([place]-3 Fatty Acids) 500 Mg Capsule. 1,400 Mg PO Fluoxetine Hcl 20 Mg Tablet 40 Mg PO DAILY LAST DOSE GIVEN: DATE:04/15/17 TIME: 9:00 a.m. Levothyroxine Sodium 125 Mcg Tablet 125 Mcg PO DAILY LAST DOSE GIVEN: DATE:04/15/17 TIME:7:30 a.m. Alprazolam 1 Mg Tablet 1 Mg PO DAILY PRN Meds not given this hospital admission. May resume home medications as approved by Physician. Vitals/I & O Vital Sign - Last 24 Hours 02/25/20 02/25/20 02/25/20 02/25/20 14:43 15:00 15:45 19:00 Temp 97.5 97.8 97.5 97.8 Pulse 75 72 Resp 18 18 19 18 B/P (MAP) 193/76 (115) 167/89 (115) Pulse Ox 95 96 96 91 O2 Delivery Room Air Room Air Room Air 02/25/20 02/25/20 02/25/20 02/25/20 20:00 20:00 20:57 21:57 Resp 18 20 Pulse Ox 91 96 O2 Delivery Room Air Room Air Room Air Room Air 02/25/20 02/26/20 02/26/20 02/26/20 23:00 03:00 04:45 05:45 Temp 97.5 98.3 97.5 98.3 Pulse 70 62 Resp 20 20 20 B/P (MAP) 144/93 (110) 147/74 (98) Pulse Ox 96 95 95 95 O2 Delivery Room Air Room Air Room Air Room Air 02/26/20 02/26/20 02/26/20 02/26/20 07:00 08:00 08:31 10:55 Temp 98.1 97.9 98.1 97.9 Pulse 66 62 68 Resp 18 18 B/P (MAP) 153/63 (93) 147/74 148/52 (84) Pulse Ox 94 96 O2 Delivery Room Air Room Air Room Air Intake and Output 02/25/20 02/25/20 02/26/20 15:00 23:00 07:00 Intake Total 240 ml 440 ml 540 ml Output Total 300 ml Balance 240 ml 140 ml 540 ml Images MRI Brain without contrast History:Syncope Technique: Multiplanar, multisequential noncontrast MR imaging was performed of the brain. Comparison: May 21, 2019 Findings: There is some motion degradation. There is no evidence of recent infarct or cytotoxic edema. The ventricles, sulci, and cisterns are within normal limits in size and configuration. There is no significant midline shift, intraaxial mass effect, or focal abnormal extra-axial fluid collection. There is no new significant signal abnormality of the brain parenchyma. There is preservation of the major intracranial flow-voids at the skull base. The cerebellar tonsils are normal in location. There is no significant abnormality of the pineal gland or pituitary gland. Paranasal sinuses are overall aerated. There is patchy very minimal fluid and thickening of the left mastoid air cells and very mild thickening on the right. Some nonspecific heterogeneous low signal of the marrow of nonexpanded clivus is similar. Impression: 1. There is no new significant intracranial abnormality. Justicifation of Admission Dx: Justifications for Admission: Justification of Admission Dx: Yes CHF: Hemodynamic Instability MELIDA MACKAY MD Feb 26, 2020 13:30
--- NOTE | 2020-02-26 13:55 | PDOC ---
CARDIO Progress Notes Date and Time Date of Service 02/26/20 Time of Evaluation 1320 Subjective Subjective: No Chest Pain, No shortness of breath Comments: Wanting to go home Vitals Vitals Vital Signs Date Time Temp Pulse Resp B/P (MAP) Pulse Ox O2 Delivery O2 Flow Rate FiO2 02/26/20 10:55 97.9 68 18 148/52 (84) 96 Room Air 97.9 Weight Weight [ ] Input and Output Intake and Output Intake and Output 02/26/20 07:00 Intake Total 1220 ml Output Total 300 ml Balance 920 ml Intake Oral 1220 ml Output Urine Total 300 ml # Voids 5 Physical Exam HEENT: Neck Supple W Full Motion LUNGS: Clear to Auscultation Heart: S1S2, RRR, no murmurs Abdomen: Soft N/T, Other (obese) Extremities: No Edema Neurology: alert, oriented, follow commands Assessment Assessment 1. Syncopal episode; no acute events on tele. Carotid US unremarkable. CT head without acute findings. MRI negative 2. Hypertension; controlled 3. Hyperlipidemia; allergy to statins 4. Morbid obesity, [place] 5. H/o TIA, migraines Recommendations Outpatient echo scheduled Outpatient event monitor has been arranged Follow up in our office with Dr. Pagan as scheduled. Supportive care Justicifation of Admission Dx: Justifications for Admission: Justification of Admission Dx: Yes CHF: Hemodynamic Instability MICHELLE STRONG APRN Feb 26, 2020 13:55
[2020-02-26 15:00] VITALS: BP 144/72
--- NOTE | 2020-02-26 15:05 | PDOC3 ---
Discharge Summary Date of Admission: Feb 23, 2020 Date of Discharge: Feb 26, 2020 Follow-Up: 3-5 days Admitting Diagnosis comment: DISCHARGE DX Assessment/Plan A/P: Syncope - uncertain etiology, likely medication related. will maintain telemetry. Consult neurology, rule out DVT Elevated d dimer -syncope and loss of consciousness, will obtain right lower extremity ultrasound. Right knee pain - XR stable. Ortho asked to see regarding weight bearing status Right ankle pain - may be sprained, recommend air-cast hard splint 6 weeks. PT to see Migraines - on emgality outpatient injections Morbid Obesity, severe Obesity Hypoventilation Syndrome Dyslipidemia Hypertension Hx of B/L TKA Cutaneous Candidiasis Primary Biliary Cirrhosis - tried ursodiol, stated she broke out in rash FEN - General diet PPX - Lovenox FULL CODE Dispo - observation for syncope syncopal episode did not cause any damage to the total knee replacement nor the recent tendon surgery. Continue weight bearing as tolerated with a walker. consult cardiology Echo to assess LV systolic function Outpatient event monitor Outpatient event monitor has been arranged Follow up with Dr. Pagan as scheduled. 02/25 refused to stay for echo, insists on d/c now , can schedule as outpatient per cardiology 38 min pt exam, chart review d/c planning , > 50% of time spent with exam, chart review, pt care coordination Justicifation of Admission Dx: Justicifation of Admission Dx: Justifications for Admission: Justification of Admission Dx: Yes CHF: Hemodynamic Instability History of Present Illness History of Present Illness History of Present Illness History of Present Illness Ms Ng is a 58 yo F w/ PMHx hypertension, hyperlipidemia with a TIA, migraines, Primary biliary cirrhosis, anxiety, depression, osteoarthritis, fibromyalgia, hypothyroidism, GERD, diverticulosis, hemorrhoids, fatty liver who presented to the ER on 02/23/2020 with complaints of syncope and a head injury in her kitchen. Her heard her fall. She notes 1 minutes LOC. Imaging is negative. Head CT was done due to a syncopal event and the head trauma and the patient over 58. Patient resting comfortably on reassessment. EKG normal sinus rhythm with a rate of 71 normal axis normal intervals normal ST segments. Labs with WBC 3.4, Hb 11.8, platelets 207, magnesium 1.7, alkaline phosphatase 167, AST 58 d-dimer 2.51 Does complain of a little bit of right knee pain and some significant right ankle pain and swelling. She notes she was just taken out of her right knee immobilizer recently by orthopedic surgery and did not know if she supposed to continue using her walker or not and she has not been using her walker at home. Admitted for observation. Past Medical History Cardiovascular: HTN, Hyperlipidemia Pulmonary: No pertinent hx CENTRAL NERVOUS SYSTEM: TIA GI: Diverticulosis, Hemorrhoids, Peptic Ulcer disease Heme/Onc: No pertinent hx Hepatobiliary: No pertinent hx Psych: Anxiety Musculoskeletal: Osteoarthritis Rheumatologic: Fibromyalgia Infectious disease: No pertinent hx Endocrine: Hypothyroidism Past Surgical History Past Surgical History: Appendectomy, Cholecystectomy, Total knee replacement, Tonsillectomy, Hysterectomy Family History Family History: Heart Disease, Hypertension Social History Smoke: No ALCOHOL: none Drugs: None Vitals Vitals Vital Signs Date Time Temp Pulse Resp B/P (MAP) Pulse Ox O2 Delivery O2 Flow Rate FiO2 02/26/20 08:31 62 147/74 02/26/20 07:00 98.1 18 94 Room Air 98.1 Physical Exam General: Alert, Oriented X3, Cooperative, No acute distress Heart: Regular rate, Normal S1, No murmurs Lungs: Clear Abdomen: Soft, No tenderness, Other (obese ) Extremities: No cyanosis, No edema, Normal pulses Skin: No significant lesion Labs FINAL DIAGNOSIS Problems Medical Problems: (1) Contusion of lower back Status: Acute (2) Head injury Status: Acute (3) Syncope Status: Acute Brief Hospital Course Ms. Ng is a 59 old [sex] who presented with [ SYNCOPE ] CONDITION AT DISCHARGE: Improved Discharge Medications Current Medications Ondansetron HCl (Zofran) 4 mg PRN Q8HRS PRN IV NAUSEA/VOMITING; Start 02/23/20 at 07:45; Stop 02/24/20 at 07:44; Status DC Magnesium Sulfate 50 ml @ 25 mls/hr 1X ONCE IV Last administered on 02/23/20at 08:58; Start 02/23/20 at 08:00; Stop 02/23/20 at 09:59; Status DC Aspirin (Evaristo Aspirin) 325 mg DAILY PO Last administered on 02/26/20at 08:32; Start 02/23/20 at 09:00 Fluticasone Propionate (Flonase) 2 spray DAILY NS Last administered on 02/26/20 08:31; Start 02/23/20 at 09:00 Levothyroxine Sodium (Synthroid) 125 mcg DAILY06 PO Last administered on 02/26/20 05:48; Start 02/23/20 at 10:30 Trazodone HCl (Desyrel) 50 mg PRN QHS PRN PO INSOMNIA Last administered on 02/26/20 00:01; Start 02/23/20 at 07:45 Fluoxetine HCl (PROzac) 40 mg DAILY PO Last administered on 02/26/20 08:32; Start 02/23/20 at 09:00 Losartan Potassium (Cozaar) 100 mg DAILY PO Last administered on 02/26/20 08:31; Start 02/23/20 at 09:00 Pantoprazole Sodium (Protonix) 40 mg DAILYAC PO Last administered on 02/26/20 05:48; Start 02/23/20 at 08:00 Acetaminophen/ Hydrocodone Bitart (Lortab 10/325) 1 tab PRN Q6HRS PRN PO PAIN Last administered on 02/24/20 05:57; Start 02/23/20 at 08:15; Stop 02/24/20 at 07:42; Status DC Enoxaparin Sodium (Lovenox 40mg Syringe) 40 mg Q12HR SQ Last administered on 02/26/20 08:30; Start 02/23/20 at 21:00 Ketorolac Tromethamine (Toradol 30mg Vial) 30 mg PRN Q6HRS PRN IVP INFLAMMATION/PAIN Last administered on 02/25/20at 16:20; Start 02/23/20 at 21:30 Morphine Sulfate (Morphine Sulfate) 4 mg PRN Q4HRS PRN IV severe pain; Start 02/23/20 at 21:30 Acetaminophen/ Hydrocodone Bitart (Lortab 5/325) 1 tab 1X ONCE PO Last administered on 02/24/20 08:05; Start 02/24/20 at 07:45; Stop 02/24/20 at 07:46; Status DC Acetaminophen/ Hydrocodone Bitart (Lortab 7.5/325) 2 tab PRN Q6HRS PRN PO MODERATE TO SEVERE PAIN Last administered on 02/26/20at 14:40; Start 02/24/20 at 07:45 Psyllium Hydrophilic Mucilloid (Metamucil Fiber Packet) 1 pkt DAILY PO Last administered on 02/26/20at 08:31; Start 02/24/20 at 16:00 Active Scripts Active Nystop (Nystatin) 60 Gm Powder 1 Nina TP BID 30 Days use topically twice a day to affected area Reported Children's Aspirin (Aspirin) 81 Mg Tab.chew 1 Tab PO DAILY 30 Days Hydrocodone-Apap 10-325 (Hydrocodone Bit/Acetaminophen) 1 Tab Tablet 1 Tab PO PRN Q6HRS PRN Omeprazole 20 Mg Capsule.dr [place] Cap PO DAILY LAST DOSE GIVEN: DATE:04/15/17 TIME:9:00 a.m. Fluticasone Propionate Nasal [place] (Fluticasone Propionate) 16 Gm [place].susp 2 [place] NS DAILY LAST DOSE GIVEN: DATE:04/15/17 TIME:9:00 a.m. Losartan Potassium 100 Mg Tablet 100 Mg PO HS [Xysol] 1 Tab PO HS Trazodone Hcl 50 Mg Tablet 50 Mg PO DAILY PRN Cyclobenzaprine Hcl 10 Mg Tablet 1 Tab PO TID LAST DOSE GIVEN: DATE:04/15/17 TIME:2:00 p.m. Niaspan (Niacin) 500 Mg Tab.er.24h 500 Mg PO HS Fish Oil ([place]-3 Fatty Acids) 500 Mg Capsule.dr [place],400 Mg PO Fluoxetine Hcl 20 Mg Tablet 40 Mg PO DAILY LAST DOSE GIVEN: DATE:04/15/17 TIME: 9:00 a.m. Levothyroxine Sodium 125 Mcg Tablet 125 Mcg PO DAILY LAST DOSE GIVEN: DATE:04/15/17 TIME:7:30 a.m. Alprazolam 1 Mg Tablet 1 Mg PO DAILY PRN Meds not given this hospital admission. May resume home medications as approved by Physician. Vital Signs Vital Signs Date Time Temp Pulse Resp B/P (MAP) Pulse Ox O2 Delivery O2 Flow Rate FiO2 02/26/20 14:40 20 96 Room Air 02/26/20 10:55 97.9 68 148/52 (84) 97.9 Allergies Allergies Coded Allergies Type Severity Reaction Last Updated Verified celecoxib Allergy Mild 01/08/20 Yes I S O L A T I O N *CONTACT* Allergy Unknown 01/08/20 Yes acetaminophen Adverse Reaction Severe HAS FATTY LIVER AND PBC: LIMITED INTAKE PLEASE 02/23/20 Yes prochlorperazine Adverse Reaction Severe 01/08/20 Yes Mmebeoh-Dff-Rwn Reductase Inhibitor Adverse Reaction Intermediate INCREASED LIVER ENZYMES 01/08/20 Yes Disposition/Orders: D/C to Home Justicifation of Admission Dx: Justifications for Admission: Justification of Admission Dx: Yes CHF: Hemodynamic Instability ALEXYS ALICEA MD Feb 26, 2020 15:05
[2020-02-26] MEDS ORDERED: PSYL3.4P PO (15:07)
[2020-02-26] MEDS ORDERED: ASPI325T8 PO (15:07)
--- NOTE | 2020-02-26 15:08 | DISCH ---
DISCHARGE INSTRUCTIONS Condition on Discharge Condition on Discharge: Stable Activity After Discharge Activity Instructions for Disc: Activity as tolerated Bathing Instructions: Shower-keep dressing dry, No Tub Bath until see Lifting Instructions after Dis: Do not lift >10 pounds Exercise Instruction after Dis: Exercise per therapy Driving Instructions after Dis: Do not drive, Do not drive today Weight Bearing Status after Di: As tolerated Diet after Discharge Diet after Discharge: Regular Diet Texture: Regular Liquid Texture: Thin Liquid Swallowing Supervision: None needed Wound Incision Care Wound/Incision Care: Keep wound/cast CDI, Do not change dressing, No wound care needed, Other, see below Wound Care Equipment: Wound vac Checks after Discharge Checks after discharge: Check blood press - daily Community/Resources/Services Services at Discharge: Outpatient Therapy, OT Evaluate & Treat Contacting the [facility]Grayson after DC Call your doctor for: If your condition worsens Treatment/Equipment after DC Adaptive Equipment Issued: None, Front wheeled walker ALEXYS ALICEA MD Feb 26, 2020 15:08
== END 2020-02-26 18:30 | disposition home or self-care (01) | DRG 83 ==
LOC: ER 05:26 → 5 NORTH 08:08 → OBSVTOIN 02-24 22:31
PROVIDERS: ADMIT Internal Medicine; ATTEND Internal Medicine
DX: S06.9X9A Unspecified intracranial injury with loss of consciousness of unspecified duration, initial encounter (principal); E66.2 Morbid (severe) obesity with alveolar hypoventilation; Z68.43 Body mass index [BMI] 50.0-59.9, adult; S30.0XXA Contusion of lower back and pelvis, initial encounter; B37.2 Candidiasis of skin and nail; E03.9 Hypothyroidism, unspecified; E78.00 Pure hypercholesterolemia, unspecified; E78.5 Hyperlipidemia, unspecified; E83.42 Hypomagnesemia; G43.909 Migraine, unspecified, not intractable, without status migrainosus; I11.0 Hypertensive heart disease with heart failure; I50.9 Heart failure, unspecified; K74.3 Primary biliary cirrhosis; K76.0 Fatty (change of) liver, not elsewhere classified; M47.816 Spondylosis without myelopathy or radiculopathy, lumbar region; M48.061 Spinal stenosis, lumbar region without neurogenic claudication; M53.82 Other specified dorsopathies, cervical region; M79.7 Fibromyalgia; Z82.3 Family history of stroke; Z82.49 Family history of ischemic heart disease and other diseases of the circulatory system; Z86.73 Personal history of transient ischemic attack (TIA), and cerebral infarction without residual deficits; Z87.11 Personal history of peptic ulcer disease; Z87.19 Personal history of other diseases of the digestive system; Z87.891 Personal history of nicotine dependence; Z88.8 Allergy status to other drugs, medicaments and biological substances; Z90.49 Acquired absence of other specified parts of digestive tract; Z90.710 Acquired absence of both cervix and uterus; Z96.653 Presence of artificial knee joint, bilateral; F41.8 Other specified anxiety disorders; K21.9 Gastro-esophageal reflux disease without esophagitis; K57.90 Diverticulosis of intestine, part unspecified, without perforation or abscess without bleeding; Z79.899 Other long term (current) drug therapy; W18.39XA Other fall on same level, initial encounter; Y93.89 Activity, other specified; Y92.89 Other specified places as the place of occurrence of the external cause; Y99.8 Other external cause status
CPT/HCPCS: 36415; 70450; 70551; 71045; 72125; 72131; 73562; 80048; 80053; 80061; 82550; 83735; 83880; 84443; 84484; 85025; 85379; 93005; 93880; 93971; 96365; 99285; G0378; G0379; J1650; J1885; J3475; 97110-GP; 97116-GP; 97530-GP

== ENCOUNTER → 2020-04-14 | Outpatient (CLI) | payer BC ==
[2020-01-11 11:00] VITALS: BP 128/68
[~2020-04-14] MED LIST changes: +ASPI81TA59 PO; +PSYL3.4P PO
[2020-04-14 15:16] LABS: ALBUMIN 3.4 g/dL (3.4-5.0); CALCIUM 9.5 mg/dL (8.5-10.1); CREATININE 0.9 mg/dL (0.6-1.0); GFR 63.7; POTASSIUM 4.1 mmol/L (3.5-5.1); TOTAL BILIRUBIN 0.3 mg/dL (0.2-1.0); TOTAL PROTEIN 6.9 g/dL (6.4-8.2)
== END | disposition home or self-care (01) ==
LOC: LAB 14:01
PROVIDERS: ATTEND Internal Medicine Gastroenterology
DX: R10.13 Epigastric pain (principal)
CPT/HCPCS: 36415; 80053; 82150; 83690

== ENCOUNTER → 2020-06-30 | Outpatient (CLI) | payer BC ==
--- NOTE | 2020-06-30 08:58 | RAD ---
US ABDOMEN COMPLETE History: Reason: PRIMARY BILIARY CIRRHOSIS / Spl. Instructions: / History: Comparison: None. Technique: Sonographic examination of the abdomen was performed and multiple grayscale and color Dopp ler static images were obtained. Findings: Liver demonstrates heterogeneous echogenicity. The liver measures 17.7 cm. Portal flow is patent. No focal liver lesion identified. Prior cholecystectomy. Common bile duct measures 9 mm in diameter within normal limits for post cholecystectomy state. Visualized pancreas is is not well seen due to overlying bowel gas. The right kidney is not well seen due to overlying structures. The left kidney measures 11 x 3 x 4.6 cm. No hydronephrosis. Not well seen due to overlying structure s. The spleen measures 13.3 cm. IVC and aorta not well seen due to overlying bowel gas. IMPRESSION: 1. Degraded evaluation. Bilateral kidneys not well evaluated. 2. Hepatosplenomegaly with heterogeneous appearance of the liver, may relate to underlying hepatocel lular disease. 3. Prior cholecystectomy. Electronically signed by: Andrew Luna DO (06/30/2020 8:55 AM) [id number]
== END ==
LOC: US 08:29
PROVIDERS: ATTEND Internal Medicine Gastroenterology
DX: K74.3 Primary biliary cirrhosis (principal); R16.2 Hepatomegaly with splenomegaly, not elsewhere classified; Z90.49 Acquired absence of other specified parts of digestive tract
CPT/HCPCS: 76700